=== PATIENT | female | born 1930 | race Caucasian/White ===

== ENCOUNTER → 2016-12-07 | Outpatient (CLI) | payer BC ==
[~2016-12-07] MED LIST: ACET-1256 PO; ALBUAER2 INH; AMIO200T4 PO; ASPI-435 PO; ASPI81TA82 PO; CHOL100010 PO; DOCU100C31 PO; DRGTP25 TD; FENT25DI10; FENT25DI2 TD; GABA-112 PO; LEVA45AE INH; LISI20TA3 PO; LISI40TA PO; LPT/40 PO; MELATAB2 PO; METO25TA3 PO; MULTCAP33 PO; ONDA4TAB46 PO; PANT40TA PO; POLY335019 PO; TPRSR50 PO; VNTHFA/IN INH; ZFRODT4HP PO; ZOLE5INJ INJ
--- NOTE | 2016-12-07 16:37 | MAMMOGRAPHY REPORT ---
BILATERAL DIGITAL SCREENING MAMMOGRAM WITH CAD: 12/07/2016 CLINICAL HISTORY: Routine screening. Patient has no complaints. TECHNIQUE: Bilateral CC and MLO views were obtained. Current study was also evaluated with a Comput er Aided Detection (CAD) system. COMPARISON: Comparison is made to exams dated: 11/08/2014 mammogram, 11/07/2013 mammogram, 11/06/20 12 mammogram, 11/03/2011 mammogram, 10/26/2010 mammogram, and 10/20/2009 mammogram - [facility]. BREAST COMPOSITION: There are scattered areas of fibroglandular density in both breasts. FINDINGS: A round metallic device projects over the right axillary tail and pectoralis muscle on th e MLO view. There are moderate vascular calcifications in the breasts. No suspicious mass, archite ctural distortion or cluster of microcalcifications is seen. IMPRESSION: ACR BI-RADS CATEGORY 1: NEGATIVE There is no mammographic evidence of malignancy. A 1 year screening mammogram is recommended. The p atient will receive written notification of the results. Approximately 10% of breast cancers are not detected with mammography. A negative mammographic repor t should not delay biopsy if a clinically suggestive mass is present. Loyda Stephenson M.D. ay/:12/07/2016 14:50:21 Attending Technologist: Radha DUBOSE)(M), [facility] Icicle Machine Operator: Radha Martin, [facility] letter sent: Normal 1/2 BI-RADS Code: ACR BI-RADS Category 1: Negative
== END | disposition home or self-care (01) ==
LOC: C.MAMM 13:06
PROVIDERS: ATTEND Internal Medicine Geriatric Medicine
DX: Z12.31 Encounter for screening mammogram for malignant neoplasm of breast (principal)

== ENCOUNTER → 2017-01-25 | Outpatient (CLI) | payer BC ==
[2017-01-25 12:03] LABS: BASO % 0.2 %; BASO ABS # 0.01 K/uL (0-0.2); COMPLETE YES; EOS % 2.3 %; HEMATOCRIT 44.4 % (37-47); IG% 0.2 %; LYMPH ABS # 1.44 K/uL (1.2-3.4); MEAN CELL VOLUME 96.7 fL (80-100); MEAN CORPUSCULAR HEMOGLOBIN 32.7 pg (25-34); MEAN CORPUSCULAR HGB CONC 33.8 g/dl (32-36); MEAN PLATELET VOLUME 10.8 fL (7.4-10.4); MONO % 9.9 %; NEUT % 65.4 %; PLATELET COUNT 187 K/uL (130-400); RED BLOOD COUNT 4.59 M/uL (4.2-5.4); WHITE BLOOD COUNT 6.55 K/uL (4.8-10.8)
[2017-01-25 12:16] LABS: ALT/SGPT 16 U/L (12-78); AST/SGOT 14 U/L (15-37); BLOOD UREA NITROGEN 20 mg/dl (7-18); BUN/CREATININE RATIO 22.3 (10-20); CALCIUM 8.7 mg/dl (8.5-10.1); CARBON DIOXIDE 30 mmol/L (21-32); CHLORIDE 108 mmol/L (98-107); CREATININE 0.89 mg/dl (0.60-1.20); GLUCOSE 74 mg/dl (70-99); POTASSIUM 4.1 mmol/L (3.5-5.1); SODIUM 144 mmol/L (136-145)
[2017-01-25 12:27] LABS: ALKALINE PHOSPHATASE 68 U/L (45-117); CHOLESTEROL 179 mg/dl (0-200); CHOLESTEROL/HDL RATIO 2.5; HDL CHOLESTEROL 73 mg/dl; LDL CHOLESTEROL CALCULATED 90 mg/dl; TRIGLYCERIDES 82 mg/dl (0-150); VERY LOW DENSITY LIPOPROT CALC 16 mg/dl
== END | disposition home or self-care (01) ==
LOC: C.LAB 11:21
PROVIDERS: ATTEND Internal Medicine Geriatric Medicine
DX: I10 Essential (primary) hypertension (principal); E78.5 Hyperlipidemia, unspecified; M19.90 Unspecified osteoarthritis, unspecified site; I48.0 Paroxysmal atrial fibrillation; E55.9 Vitamin D deficiency, unspecified; R10.9 Unspecified abdominal pain

== ENCOUNTER → 2017-03-27 | Outpatient (CLI) | payer BC ==
[~2017-03-27] MED LIST changes: +ANT25 PO; +MCRB100 PO
[2017-03-27 17:08] LABS: URINE APPEARANCE CLOUDY (CLEAR); URINE COLOR DK YELLOW; URINE EPITHELIAL CELL AUTO >30 /lpf (0-5); URINE NITRITE NEG (NEG); URINE SPECIFIC GRAVITY 1.026 (1.000-1.030); UROBILINOGEN NEG (NEG); ZZUR CULT IF INDIC CLEAN CATCH YES
[2017-03-27 17:22] LABS: MANUAL MICROSCOPIC REQUIRED? NO; REVIEW REQ? YES; URINE BILIRUBIN NEG (NEG)
== END | disposition home or self-care (01) ==
LOC: C.LAB 16:42
PROVIDERS: ATTEND Physician Assistant Medical
DX: R39.89 Other symptoms and signs involving the genitourinary system (principal); A49.8 Other bacterial infections of unspecified site

== ENCOUNTER 2017-04-16 18:51 | Emergency (ER) | payer BC ==
[~2017-04-16] VITALS: Ht 157.5 cm; Wt 55.0 kg
[~2017-04-16 18:51] MED LIST changes: -ANT25 PO; -ASPI-435 PO; -DRGTP25 TD; -FENT25DI10; -GABA-112 PO; -LEVA45AE INH; -LISI20TA3 PO; -MCRB100 PO; -METO25TA3 PO; -ONDA4TAB46 PO; -PANT40TA PO; -VNTHFA/IN INH
[2017-04-16 18:55] VITALS: TEMP 37; Ht 157.5 cm; Wt 55.0 kg
--- NOTE | 2017-04-16 19:11 | EMERGENCY ROOM VISIT NOTE ---
History Report prepared by Suryibomar: Kiana Lopez Under the Supervision of: Dr. Harinder Crooks M.D. First contact with patient: 18:59 Chief Complaint: CARDIAC ASSESSMENT Stated Complaint: CHEST PAIN,LETHARGIC,VOMITING History of Present Illness The patient is a 87 year old female who presents to the Emergency Room with complaints of persistent chest pain that started yesterday morning. She was brought to the ED via EMS and is accompanied by her daughter. The patient currently complains of a feeling of chest pain that resembles "indigestion". Her daughter reports the last time she experienced this type of discomfort, she had an CA. The patient admits her current discomfort does feel like her last CA which was approximately 9 years ago. She reports she was "just sitting in my chair" when her discomfort started. She also complains of some shortness of breath, nausea and lethargy. She has not vomited. The patients daughter states she has been falling more recently and has been increasingly weak. Her daughter also reports she recently finished an antibiotic course for UTI symptoms. Source of History: patient, family (daughter) Onset: 1 day DRY F[employer] Position: chest Timing: other (persistent) Associated Symptoms: + SOB, + fatigue, + nausea, + weakness Review of Systems All systems have been listed, reviewed, and are negative other than those previously mentioned. Please see Additional Medical History Sheet. 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 Social History Smoking Status: Former Smoker Alcohol Use: none Drug Use: none Marital Status: single, Housing Status: lives with family Occupation Status: retired Current/Historical Medications Scheduled Amiodarone Hcl (Cordarone), 200 MG PO DAILY Aspirin (Aspirin), 81 MG PO DAILY Atorvastatin (Lipitor), 40 MG PO HS Cholecalciferol (Vitamin D), 2,000 INTER.UNIT PO DAILY Docusate Sodium (Docusate Sodium), 100 MG PO DAILY Fentanyl (Duragesic), 25 MCG TD [id number] Gabapentin (Neurontin), 100 MG PO TID Lisinopril (Zestril), 40 MG PO DAILY Metoprolol Succinate (Metoprolol Succinate ER), 50 MG PO DAILY Pantoprazole (Protonix), 40 MG PO DAILY Polyethylene Glycol 3350 (Miralax), 17 GM PO Q2D Zoledronic Acid (Reclast), 5 MG INJ YEARLY Scheduled PRN Acetaminophen (Tylenol), 1,000 MG PO Q6H PRN for Pain Albuterol (Ventolin), 2 PUFFS INH Q4-6HRS PRN for Shortness of Breath Levalbuterol Tartrate (Levalbuterol Tartrate Hfa), 2 PUFFS INH Q4H PRN for SOB/ Wheezing Ondansetron (Ondansetron Odt), 4 MG PO Q6H PRN for Nausea Allergies Coded Allergies: Adenosine (Verified Allergy, Unknown, "pt not sure had it in er years ago ", 04/22/16) Physical Exam Vital Signs Date Time Temp Pulse Resp B/P Pulse Ox O2 Delivery O2 Flow Rate FiO2 04/16/17 22:22 59 16 146/70 97 04/16/17 21:25 52 04/16/17 20:48 58 16 143/57 98 Room Air 04/16/17 19:50 98 Room Air 04/16/17 19:16 98 Room Air 04/16/17 18:55 37.0 57 18 162/57 98 Room Air Physical Exam GENERAL: Patient awake, alert, oriented x 3. Patient follows commands. Patient does not appear toxic. Patient is adequately hydrated and well- nourished. SKIN: No erythema, pallor, cyanosis or rash HEENT: Normal head, pupils equal, reactive to light and accommodation. Ears normal. Oral cavity and posterior pharynx appear normal. Neck: Without adenopathy, no neck vein distention. LUNGS: Clear to auscultation. No wheezes, no rales, no rhonchi. HEART: No murmurs. No gallops. No rubs. Pacemaker in right upper chest. ABDOMEN: No masses, no rebound, no hepatomegaly or splenomegaly. EXTREMITIES: Mottled appearance to both extremities. No signs of trauma. +1 pretibial edema. No calf or thigh tenderness. NEUROLOGIC: Cranial nerves II-XII within normal limits. No gross motor sensory function deficits. Medical Decision & Procedures ER Provider Diagnostic Interpretation: This X-Ray was reviewed and interpreted by myself and the radiologist. CHEST ONE VIEW PORTABLE IMPRESSION: No acute process Electronically signed by: Grant Fabian M.D. 04/16/2017 8:14 PM Laboratory Results 04/16/17 19:25 04/16/17 19:25 Test 04/16/17 19:25 Red Blood Count 4.74 M/uL (4.2-5.4) Mean Corpuscular Volume 97.0 fL (80-100) Mean Corpuscular Hemoglobin 32.1 pg (25-34) Mean Corpuscular Hemoglobin Concent 33.0 g/dl (32-36) RDW Standard Deviation 49.4 fL (36.4-46.3) RDW Coefficient of Variation 13.9 % (11.5-14.5) Mean Platelet Volume 10.6 fL (7.4-10.4) Anion Gap 6.0 mmol/L (3-11) Est Creatinine Clear Calc Drug Dose 41.7 ml/min Estimated GFR () 80.3 Estimated GFR (Non- 69.3 BUN/Creatinine Ratio 28.9 (10-20) Calcium Level 8.8 mg/dl (8.5-10.1) Total Bilirubin 0.4 mg/dl (0.2-1) Aspartate Amino Transf (AST/SGOT) U/L (15-37) Alanine Aminotransferase (ALT/SGPT) 22 U/L (12-78) Alkaline Phosphatase 71 U/L (45-117) Troponin I < 0.015 ng/ml (0-0.045) Total Protein 6.5 gm/dl (6.4-8.2) Albumin 3.3 gm/dl (3.4-5.0) Globulin 3.2 gm/dl (2.5-4.0) Albumin/Globulin Ratio 1.0 (0.9-2) Thyroid Stimulating Hormone (TSH) 2.380 uIu/ml (0.300-4.500) Laboratory results as stated above per my review. ECG Indication: chest pain Rate (beats per minute): 56 Rhythm: sinus bradycardia Findings: no acute ischemic change, no ectopy Change: no significant change (no change from April 2016) ED Course 1900: Past medical records reviewed. The patient was evaluated in room C7. A complete history and physical examination was performed. 2105: I reevaluated the patient. She is feeling about the same. I am awaiting her Troponin to come back. 2204: Upon reevaluation, the patient appeared to have improvement of her symptoms. I discussed today's findings with the patient. She verbalized agreement of the treatment plan. She was discharged home. Medical Decision Nurses notes reviewed. Medical history sheet reviewed. Differential diagnosis includes but is not limited to: Cardiac ischemia, aortic dissection, pulmonary embolism, pneumonia, pneumothorax, musculoskeletal, infections, pericarditis, myocarditis, esophageal rupture, gastrointestinal, as well as others were entertained. Multiple labs come imaging and EKG were obtained. Please see above. The patient has no evidence of an acute myocardial event. I do not think she had a stroke. The patient is not anemic. I believe the patient is safe to return home but will require follow-up by family physician within the next several days. Impression Primary Impression: Weakness generalized Scribe Attestation The scribe's documentation has been prepared under my direction and personally reviewed by me in its entirety. I confirm that the note above accurately reflects all work, treatment, procedures, and medical decision making performed by me. Departure Information Dispostion Home / Self-Care Referrals Alexei Redman M.D. (PCP) Patient Instructions My [facility] Additional Instructions Continue all of your current medications as prescribed. Follow-up with Dr. Redman within the next 4-5 days. Return here sooner if your symptoms worsen.
[2017-04-16 19:50] VITALS: O2SAT 98
[2017-04-16 19:58] LABS: MEAN CORPUSCULAR HEMOGLOBIN 32.1 pg (25-34); MEAN PLATELET VOLUME 10.6 fL (7.4-10.4); PLATELET COUNT 182 K/uL (130-400); RED BLOOD COUNT 4.74 M/uL (4.2-5.4); WHITE BLOOD COUNT 5.99 K/uL (4.8-10.8)
[2017-04-16] MEDS ORDERED: GABA-112 PO (20:02)
[2017-04-16] MEDS ORDERED: PANT40TA PO (20:03)
[2017-04-16] MEDS ORDERED: LEVA45AE INH (20:04)
--- NOTE | 2017-04-16 20:15 | DIAGNOSTIC IMAGING REPORT ---
CHEST ONE VIEW PORTABLE CLINICAL HISTORY: chest pain dyspnea COMPARISON STUDY: 04/30/2016 FINDINGS: Mild stable cardiomegaly. Diaphragms are smooth. No focal infiltrates. IMPRESSION: No acute process Electronically signed by: Grant Fabian M.D. 04/16/2017 8:14 PM Dictated Date/Time: 04/16/2017 8:13 PM
[2017-04-16 20:18] LABS: ALKALINE PHOSPHATASE 71 U/L (45-117); ALT/SGPT 22 U/L (12-78); BLOOD UREA NITROGEN 23 mg/dl (7-18); BUN/CREATININE RATIO 28.9 (10-20); CALCIUM 8.8 mg/dl (8.5-10.1); CARBON DIOXIDE 30 mmol/L (21-32); CHLORIDE 109 mmol/L (98-107); CREATININE 0.78 mg/dl (0.60-1.20); GLUCOSE 95 mg/dl (70-99); SODIUM 145 mmol/L (136-145)
[2017-04-16 22:22] VITALS: BP 146/70; PULSE 59; O2SAT 97
[2017-06-15] MEDS ORDERED: ONDA4TAB46 PO (10:59)
[2017-06-15] MEDS ORDERED: LISI20TA3 PO (11:00)
[2017-06-15] MEDS ORDERED: METO25TA3 PO (11:00)
[2017-09-06] MEDS ORDERED: ANT25 PO (05:31)
[2017-09-06] MEDS ORDERED: MCRB100 PO (05:31)
[2017-09-06] MEDS ORDERED: DRGTP25 TD (05:31)
== END 2017-04-16 22:22 | disposition home or self-care (01) ==
LOC: C.EDB 18:53 → C.EDC 22:22
DX: R53.1 Weakness (principal); J45.909 Unspecified asthma, uncomplicated; I48.91 Unspecified atrial fibrillation; K21.9 Gastro-esophageal reflux disease without esophagitis; E78.5 Hyperlipidemia, unspecified; I10 Essential (primary) hypertension; I25.10 Atherosclerotic heart disease of native coronary artery without angina pectoris; Z86.73 Personal history of transient ischemic attack (TIA), and cerebral infarction without residual deficits; I73.9 Peripheral vascular disease, unspecified; Z87.891 Personal history of nicotine dependence; Z79.82 Long term (current) use of aspirin; Z79.899 Other long term (current) drug therapy

== ENCOUNTER → 2017-04-29 | Outpatient (CLI) | payer BC ==
[~2017-04-29] MED LIST changes: +ANT25 PO; +ASPI-435 PO; +DRGTP25 TD; +FENT25DI10; +GABA-112 PO; +LEVA45AE INH; +LISI20TA3 PO; +MCRB100 PO; -MELATAB2 PO; +METO25TA3 PO; -MULTCAP33 PO; +ONDA4TAB46 PO; +PANT40TA PO; +VNTHFA/IN INH
--- NOTE | 2017-04-29 09:26 | DIAGNOSTIC IMAGING REPORT ---
Abdominal aortic ultrasound CLINICAL HISTORY: Abdominal aortic aneurysm. Follow-up. COMPARISON STUDY: Abdomen and pelvis CT 04/09/2016. FINDINGS: Proximal abdominal aorta measures 2.0 cm. Mid abdominal aorta measures 3.7 x 3.6 cm. Distal abdominal aorta measures 1.6 cm. Iliac vessels measure proximal A 1 cm in diameter. IMPRESSION: No change in the mid abdominal aortic aneurysm measuring 3.7 x 3.6 cm. Electronically signed by: Darren Livingston M.D. 04/29/2017 9:24 AM Dictated Date/Time: 04/29/2017 9:13 AM
== END | disposition home or self-care (01) ==
LOC: C.ULTR 08:32
PROVIDERS: ATTEND Internal Medicine Geriatric Medicine
DX: I71.4 Abdominal aortic aneurysm, without rupture (principal)

== ENCOUNTER → 2017-05-04 | Outpatient (CLI) | payer BC ==
[2017-05-04 16:16] LABS: BLOOD UREA NITROGEN 21 mg/dl (7-18); CREATININE 0.93 mg/dl (0.60-1.20)
== END ==
LOC: C.LAB 14:45
PROVIDERS: ATTEND Internal Medicine Geriatric Medicine
DX: R10.9 Unspecified abdominal pain (principal)

== ENCOUNTER 2017-05-08 17:15 | Inpatient (IN) | payer BC, OTHER ==
[~2017-05-08] VITALS: Ht 157.5 cm; Wt 62.2 kg
[~2017-05-08 17:15] MED LIST changes: -ANT25 PO; -ASPI-435 PO; -DRGTP25 TD; -FENT25DI10; -LISI20TA3 PO; -MCRB100 PO; -METO25TA3 PO; -ONDA4TAB46 PO; -VNTHFA/IN INH
[2017-05-08 17:45] LABS: BASO % 0.3 %; BASO ABS # 0.02 K/uL (0-0.2); COMPLETE YES; EOS % 3.4 %; HEMATOCRIT 48.1 % (37-47); LYMPH % 31.2 %; LYMPH ABS # 1.91 K/uL (1.2-3.4); MEAN CELL VOLUME 96.4 fL (80-100); MEAN CORPUSCULAR HEMOGLOBIN 31.5 pg (25-34); MEAN CORPUSCULAR HGB CONC 32.6 g/dl (32-36); MONO % 8.2 %; NEUT % 56.9 %; PLATELET COUNT 198 K/uL (130-400); RED BLOOD COUNT 4.99 M/uL (4.2-5.4); WHITE BLOOD COUNT 6.13 K/uL (4.8-10.8)
[2017-05-08 18:00] LABS: PARTIAL THROMBOPLASTIN RATIO 0.9; PROTHROMBIN TIME (PATIENT) 10.6 SECONDS (9.0-12.0)
[2017-05-08] MEDS ORDERED: ONDANSETRON INJ 2 MG/ML 2 ML VIAL IV STA (18:03)
[2017-05-08 18:14] LABS: ALT/SGPT 20 U/L (12-78); AST/SGOT 22 U/L (15-37); BLOOD UREA NITROGEN 17 mg/dl (7-18); CALCIUM 8.8 mg/dl (8.5-10.1); CARBON DIOXIDE 29 mmol/L (21-32); CHLORIDE 108 mmol/L (98-107); CREATININE 0.82 mg/dl (0.60-1.20); GLUCOSE 91 mg/dl (70-99); POTASSIUM 4.2 mmol/L (3.5-5.1); SODIUM 145 mmol/L (136-145)
[2017-05-08] MEDS ORDERED: HYDROmorphone INJ 0.5 MG/0.5 ML SYR IV PRN (18:15)
--- NOTE | 2017-05-08 18:15 | DIAGNOSTIC IMAGING REPORT ---
CHEST ONE VIEW PORTABLE CLINICAL HISTORY: severe hypertension COMPARISON STUDY: No previous studies for comparison. FINDINGS: The heart remains mildly enlarged. There is no failure. There is no focal pulmonary consolidation. There is stable blunting left lateral costophrenic angle. There is a right subclavian single lead pacemaker present. The position of electrode remains unchanged. Arthritic changes are present within the shoulders.[ IMPRESSION: Stable mild cardiomegaly and blunting of the left lateral costophrenic angle. No evidence of failure. No evidence of focal pulmonary consolidation Electronically signed by: Lorne Go M.D. 05/08/2017 6:14 PM Dictated Date/Time: 05/08/2017 6:12 PM
[2017-05-08 18:19] LABS: ALKALINE PHOSPHATASE 75 U/L (45-117)
[2017-05-08 19:24] LABS: URINE APPEARANCE CLEAR (CLEAR); URINE BILIRUBIN NEG (NEG); URINE COLOR YELLOW; URINE NITRITE NEG (NEG); URINE PH 6.5 (4.5-7.5); UROBILINOGEN NEG (NEG)
[2017-05-08 19:26] LABS: MANUAL MICROSCOPIC REQUIRED? NO; REVIEW REQ? NO
[2017-05-08] MEDS ORDERED: OPTIRAY 320 IV PRN (19:30)
[2017-05-08] MEDS ORDERED: DRGTP25 TD (19:31)
[2017-05-08] MEDS ORDERED: ASPI-435 PO (19:31)
[2017-05-08] MEDS ORDERED: CHOL100010 PO (19:31)
[2017-05-08] MEDS ORDERED: VNTHFA/IN INH (19:31)
[2017-05-08] MEDS ORDERED: FENT25DI10 (19:31)
--- NOTE | 2017-05-08 21:04 | DIAGNOSTIC IMAGING REPORT ---
CT HEAD WITHOUT CONTRAST (CT) CLINICAL HISTORY: severe hypertension FRONTAL HEADACHE COMPARISON STUDY: No previous studies for comparison. TECHNIQUE: Axial CT of the brain is performed from the vertex to the skull base. IV contrast was not administered for this examination. CT DOSE: FINDINGS: No intra or extra-axial mass lesions are visualized. There is no CT evidence of acute cortical infarction. There is no evidence of midline shift. There is no acute hemorrhage. No calvarial fractures are visualized. There are minimal white matter hypodensities likely on a small vessel basis. There is a lacunar infarct in the right thalamus. There is no evidence of pathologic ventricular dilatation. There is no evidence of acute sinusitis IMPRESSION: Subacute or chronic right thalamic lacunar infarct. No acute intracranial findings. Electronically signed by: Lorne Go M.D. 05/08/2017 9:03 PM Dictated Date/Time: 05/08/2017 9:02 PM
--- NOTE | 2017-05-08 21:17 | DIAGNOSTIC IMAGING REPORT ---
CT ABD/PELVIS IV AND ORAL CONT CLINICAL HISTORY: Right lower quadrant abdominal pain. Nausea. Hypertension. COMPARISON STUDY: 04/09/2016 TECHNIQUE: Following the IV administration of 91 mL of Optiray-320, CT scan of the abdomen and pelvis was performed from the lung bases to the proximal femurs. Images are reviewed in the axial, sagittal, and coronal planes. IV contrast was administered without complication. CT DOSE: 894.44 mGy.cm FINDINGS: Lower chest: There are small bilateral pleural effusions left greater than right. The heart is mildly enlarged. There are left basilar atelectatic changes. Liver: There is intra and extrahepatic biliary ductal dilatation. No focal hepatic masses are visualized. Gallbladder: The gallbladder remains difficult to separate from the adjacent dilated ducts. No gallstones are visualized. Spleen: Normal in size and attenuation. Pancreas: There is mild pancreatic ductal dilatation and pancreatic atrophy. Adrenal glands: Unremarkable. Kidneys: There is symmetric renal cortical enhancement. The kidneys are normal in size without hydronephrosis. Bowel: There are no transition zones indicate bowel obstruction. There is mild fecal retention. There is no acute diverticulitis. There is no evidence of acute appendicitis. Peritoneum: There is no intraperitoneal free air or abdominal ascites. Vasculature: There is an infrarenal abdominal aortic aneurysm measuring 3.9 cm in maximal diameter. There is also dilatation of the suprarenal abdominal aorta which measures 34 mm in maximal diameter. There is an indwelling IVC filter. Several of the struts project beyond the IVC lumen. Adenopathy: None. Pelvic viscera: The uterus appears surgically absent. Skeletal structures: There are postsurgical changes of prior lumbar laminectomies. IMPRESSION: 1. No evidence of bowel obstruction. No evidence of free air 2. No evidence of acute appendicitis. No evidence of acute diverticulitis 3. Partially thrombosed infrarenal abdominal aortic aneurysm measuring 3.9 cm in maximal diameter 4. Small bilateral pleural effusions 5. Moderate intra and extrahepatic biliary ductal dilatation. The common bile duct measures 12 mm. There is also pancreatic ductal dilatation and pancreatic atrophy. The etiology of this ductal dilatation is not known. The biliary ductal dilatation has been present on studies dating back to November 2011. The pancreatic ductal dilatation is progressive. Electronically signed by: Lorne Go M.D. 05/08/2017 9:16 PM Dictated Date/Time: 05/08/2017 9:04 PM
[2017-05-08] MEDS ORDERED: ASPIRIN 81 MG CHEW PO STA (21:55)
[2017-05-08] MEDS ORDERED: HydrALAZINE HCL 20 MG/ML VIAL IV. STA (23:14)
[2017-05-08] MEDS ORDERED: MAGNESIUM HYDROXIDE SUSP 30 ML UDC PO PRN (23:30)
[2017-05-08] MEDS ORDERED: ALBUTEROL HFA 8 GM INHALER INH PRN (23:30)
[2017-05-08] MEDS ORDERED: ONDANSETRON INJ 2 MG/ML 2 ML VIAL IV PRN (23:30)
--- NOTE | 2017-05-08 23:32 | History and Physical ---
History & Physical Date & Time of Service: May 08, 2017 at 23:29 Chief Complaint: High Bp,Not Feeling Well Primary Care Physician: Alexei Redman M.D. History of Present Illness Source: patient 87-year-old female with a past medical history of hypertension, atrial fibrillation, coronary artery disease , abdominal aortic aneurysm, hyperlipidemia, peripheral vascular disease, spinal stenosis status post laminectomy, GERD, carotid artery occlusion presented to the ER with complaints of confusion in the setting of high blood pressure. Per the patient, " she felt like she was in outer space" and when her daughter checked her blood pressure, it was 218/60. She stated that she had a headache with nausea and blurring of vision which is now resolved. Denies any new onset weakness, numbness or tingling, slurring of speech or chest pain or difficult breathing. She has a history of spinal stenosis status post laminectomy done several years ago and complains of low back pain and lower extremity weakness especially in her right lower extremity. She ambulates in an electric chair and has a fentanyl patch for pain management. She also complains of constant, chronic right lower quadrant abdominal pain and nausea. She was scheduled for a CT scan tomorrow. 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 Social History Smoking Status: Never Smoker Drug Use: none Marital Status: single, Housing status: lives with family Occupational Status: retired Immunizations History of Influenza Vaccine: Unknown History of Tetanus Vaccine?: Unknown History of Pneumococcal: Unknown History of Hepatitis B Vaccine: Unknown Multi-Drug Resistant Organisms History of MDRO: No Allergies Coded Allergies: Adenosine (Verified Allergy, Unknown, "pt not sure had it in er years ago ", 04/22/16) Home Medications Scheduled Amiodarone Hcl (Cordarone), 200 MG PO DAILY Aspirin (Aspirin 81), 81 MG PO DAILY Atorvastatin (Lipitor), 40 MG PO HS Cholecalciferol (Vitamin D), 2,000 UNITS PO DAILY Docusate Sodium (Docusate Sodium), 100 MG PO DAILY Fentanyl (Fentanyl), 25 MCG TD [id number] Gabapentin (Neurontin), 100 MG PO TID Lisinopril (Zestril), 40 MG PO DAILY Metoprolol Succinate (Metoprolol Succinate ER), 50 MG PO DAILY Polyethylene Glycol 3350 (Miralax), 17 GM PO Q2D Zoledronic Acid (Reclast), 5 MG INJ YEARLY Scheduled PRN Acetaminophen (Tylenol), 1,000 MG PO Q6H PRN for Pain Albuterol Hfa (Ventolin Hfa), 2 PUFFS INH Q6H PRN for SOB/Wheezing Ondansetron (Ondansetron Odt), 4 MG PO Q6H PRN for Nausea Review of Systems Constitutional: No fever, No chills Eyes: + worsening of vision (blurriness of vision now resolved) Respiratory: No cough, No sputum, No shortness of breath Cardiovascular: No chest pain, No orthopnea, No edema Abdomen: + pain (RLQ which is chronic), + nausea, + vomiting Musculoskeletal: No joint pain Genitourinary - Female: No dysuria, No urinary frequency Neurologic: No memory loss, No paralysis, No weakness (LLE weakness which is longstanding) Psychiatric: No depression symptoms Integumentary: No rash Physical Exam Vital Signs Date Time Temp Pulse Resp B/P (MAP) Pulse Ox O2 Delivery O2 Flow Rate FiO2 05/08/17 23:04 49 190/64 05/08/17 22:19 54 20 205/63 95 Room Air 05/08/17 22:04 48 05/08/17 21:27 48 20 167/60 96 Room Air 05/08/17 20:23 52 20 190/62 97 Room Air 05/08/17 19:08 48 16 184/74 95 Room Air 05/08/17 19:08 95 Room Air 05/08/17 18:29 59 05/08/17 17:18 36.7 56 20 218/67 95 Room Air General Appearance: WD/WN, no apparent distress Head: normocephalic Eyes: normal inspection ENT: normal ENT inspection, hearing grossly normal Neck: supple Respiratory/Chest: chest non-tender, lungs clear, normal breath sounds, no respiratory distress, no accessory muscle use Cardiovascular: + bradycardia Abdomen/GI: normal bowel sounds, + tenderness (RLQ) Extremities/Musculoskelatal: normal inspection, no pedal edema Neurologic/Psych: online marketer II-XII nml as tested, alert, normal mood/affect, oriented x 3, + motor weakness (RLE 1/5) Skin: normal color Diagnostics Laboratory Results Results Past 24 Hours Test 05/08/17 17:30 05/08/17 18:30 Range/Units White Blood Count 6.13 4.8-10.8 K/uL Red Blood Count 4.99 4.2-5.4 M/uL Hemoglobin 15.7 12.0-16.0 g/dL Hematocrit 48.1 37-47 % Mean Corpuscular Volume 96.4 80-100 fL Mean Corpuscular Hemoglobin 31.5 25-34 pg Mean Corpuscular Hemoglobin Concent 32.6 32-36 g/dl Platelet Count 198 130-400 K/uL Mean Platelet Volume 10.0 7.4-10.4 fL Neutrophils (%) (Auto) 56.9 % Lymphocytes (%) (Auto) 31.2 % Monocytes (%) (Auto) 8.2 % Eosinophils (%) (Auto) 3.4 % Basophils (%) (Auto) 0.3 % Neutrophils # (Auto) 3.49 1.4-6.5 K/uL Lymphocytes # (Auto) 1.91 1.2-3.4 K/uL Monocytes # (Auto) 0.50 0.11-0.59 K/uL Eosinophils # (Auto) 0.21 0-0.5 K/uL Basophils # (Auto) 0.02 0-0.2 K/uL RDW Standard Deviation 49.0 36.4-46.3 fL RDW Coefficient of Variation 13.8 11.5-14.5 % Immature Granulocyte % (Auto) 0.0 % Immature Granulocyte # (Auto) 0.00 0.00-0.02 K/uL Prothrombin Time 10.6 9.0-12.0 SECONDS Prothromb Time International Ratio 1.0 0.9-1.1 Activated Partial Thromboplast Time 23.3 21.0-31.0 SECONDS Partial Thromboplastin Ratio 0.9 Sodium Level 145 136-145 mmol/L Potassium Level 4.2 3.5-5.1 mmol/L Chloride Level 108 98-107 mmol/L Carbon Dioxide Level 29 21-32 mmol/L Anion Gap 8.0 3-11 mmol/L Blood Urea Nitrogen 17 7-18 mg/dl Creatinine 0.82 0.60-1.20 mg/dl Estimated GFR () 75.6 Estimated GFR (Non- 65.3 BUN/Creatinine Ratio 21.0 10-20 Random Glucose 91 70-99 mg/dl Calcium Level 8.8 8.5-10.1 mg/dl Total Bilirubin 0.4 0.2-1 mg/dl Direct Bilirubin 0-0.2 mg/dl Aspartate Amino Transf (AST/SGOT) 22 15-37 U/L Alanine Aminotransferase (ALT/SGPT) 20 12-78 U/L Alkaline Phosphatase 75 45-117 U/L Total Creatine Kinase 85 26-192 U/L Creatine Kinase MB 1.7 0.5-3.6 ng/ml Creatine Kinase MB Ratio 2.0 0-3.0 Troponin I < 0.015 0-0.045 ng/ml Total Protein 6.9 6.4-8.2 gm/dl Albumin 3.4 3.4-5.0 gm/dl Lipase 115 73-393 U/L Thyroid Stimulating Hormone (TSH) 2.950 0.300-4.500 uIu/ml Chemistry Specimen Hemolysis Urine Color YELLOW Urine Appearance CLEAR CLEAR Urine pH 6.5 4.5-7.5 Urine Specific Haslet 1.010 1.000-1.030 Urine Protein NEG NEG Urine Glucose (UA) NEG NEG Urine Ketones NEG NEG Urine Occult Blood NEG NEG Urine Nitrite NEG NEG Urine Bilirubin NEG NEG Urine Urobilinogen NEG NEG Urine Leukocyte Esterase SMALL NEG Urine WBC (Auto) 1-5 0-5 /hpf Urine RBC (Auto) 5-10 0-4 /hpf Urine Hyaline Casts (Auto) 1-5 0-5 /lpf Urine Epithelial Cells (Auto) 10-20 0-5 /lpf Urine Bacteria (Auto) NEG NEG Diagnostic Radiology [~ rep ct add3]] CT HEAD WITHOUT CONTRAST (CT) CLINICAL HISTORY: severe hypertension FRONTAL HEADACHE COMPARISON STUDY: No previous studies for comparison. TECHNIQUE: Axial CT of the brain is performed from the vertex to the skull base. IV contrast was not administered for this examination. CT DOSE: FINDINGS: No intra or extra-axial mass lesions are visualized. There is no CT evidence of acute cortical infarction. There is no evidence of midline shift. There is no acute hemorrhage. No calvarial fractures are visualized. There are minimal white matter hypodensities likely on a small vessel basis. There is a lacunar infarct in the right thalamus. There is no evidence of pathologic ventricular dilatation. There is no evidence of acute sinusitis IMPRESSION: Subacute or chronic right thalamic lacunar infarct. No acute intracranial findings. Electronically signed by: Lorne Go M.D. 05/08/2017 9:03 PM CHEST ONE VIEW PORTABLE CLINICAL HISTORY: severe hypertension COMPARISON STUDY: No previous studies for comparison. FINDINGS: The heart remains mildly enlarged. There is no failure. There is no focal pulmonary consolidation. There is stable blunting left lateral costophrenic angle. There is a right subclavian single lead pacemaker present. The position of electrode remains unchanged. Arthritic changes are present within the shoulders.[ IMPRESSION: Stable mild cardiomegaly and blunting of the left lateral costophrenic angle. No evidence of failure. No evidence of focal pulmonary consolidation Electronically signed by: Lorne Go M.D. 05/08/2017 6:[address] ABD/PELVIS IV AND ORAL CONT CLINICAL HISTORY: Right lower quadrant abdominal pain. Nausea. Hypertension. COMPARISON STUDY: 04/09/2016 TECHNIQUE: Following the IV administration of 91 mL of Optiray-320, CT scan of the abdomen and pelvis was performed from the lung bases to the proximal femurs. Images are reviewed in the axial, sagittal, and coronal planes. IV contrast was administered without complication. CT DOSE: 894.44 mGy.cm FINDINGS: Lower chest: There are small bilateral pleural effusions left greater than right. The heart is mildly enlarged. There are left basilar atelectatic changes. Liver: There is intra and extrahepatic biliary ductal dilatation. No focal hepatic masses are visualized. Gallbladder: The gallbladder remains difficult to separate from the adjacent dilated ducts. No gallstones are visualized. Spleen: Normal in size and attenuation. Pancreas: There is mild pancreatic ductal dilatation and pancreatic atrophy. Adrenal glands: Unremarkable. Kidneys: There is symmetric renal cortical enhancement. The kidneys are normal in size without hydronephrosis. Bowel: There are no transition zones indicate bowel obstruction. There is mild fecal retention. There is no acute diverticulitis. There is no evidence of acute appendicitis. Peritoneum: There is no intraperitoneal free air or abdominal ascites. Vasculature: There is an infrarenal abdominal aortic aneurysm measuring 3.9 cm in maximal diameter. There is also dilatation of the suprarenal abdominal aorta which measures 34 mm in maximal diameter. There is an indwelling IVC filter. Several of the struts project beyond the IVC lumen. Adenopathy: None. Pelvic viscera: The uterus appears surgically absent. Skeletal structures: There are postsurgical changes of prior lumbar laminectomies. IMPRESSION: 1. No evidence of bowel obstruction. No evidence of free air 2. No evidence of acute appendicitis. No evidence of acute diverticulitis 3. Partially thrombosed infrarenal abdominal aortic aneurysm measuring 3.9 cm in maximal diameter 4. Small bilateral pleural effusions 5. Moderate intra and extrahepatic biliary ductal dilatation. The common bile duct measures 12 mm. There is also pancreatic ductal dilatation and pancreatic atrophy. The etiology of this ductal dilatation is not known. The biliary ductal dilatation has been present on studies dating back to November 2011. The pancreatic ductal dilatation is progressive. Electronically signed by: Lorne Go M.D. 05/08/2017 9:16 PM Dictated Date/Time: 05/08/2017 9:04 PM Impression Assessment and Plan 87-year-old female with a past medical history of hypertension, atrial fibrillation, coronary artery disease , abdominal aortic aneurysm, hyperlipidemia, peripheral vascular disease, spinal stenosis status post laminectomy, GERD, carotid artery occlusion presented to the ER with complaints of confusion in the setting of high blood pressure. Blood pressure recorded at home was 218/60 and on arrival was 218 /67. Uncontrolled hypertension: Head CT: Subacute or chronic right thalamic lacunar infarct. No acute intracranial findings. - Received full dose aspirin in the ER - Monitor blood pressure - Hydralazine 10 mg when necessary - Continue metoprolol 50 mg daily and lisinopril 40 mg daily Subacute stroke: Subacute or chronic right thalamic lacunar infarct visualized on CT - Continue aspirin, statin - Neurology consult Bradycardia, history of atrial fibrillation : Status post pacemaker( per patient, is not working) - Continue amiodarone - Bradycardia appears to be chronic, heart rate ranges in the 50s Right lower quadrant abdominal pain : Chronic CT abdomen and pelvis:. Moderate intra and extrahepatic biliary ductal dilatation. The common bile duct measures 12 mm. There is also pancreatic ductal dilatation and pancreatic atrophy. The etiology of this ductal dilatation is not known. The biliary ductal dilatation has been present on studies dating back to November 2011. The pancreatic ductal dilatation is progressive. - Liver enzymes including lipase is unremarkable Hyperlipidemia : -Continue Lipitor Spinal stenosis status post laminectomy - Continue gabapentin and fentanyl patch Full code DVT prophylaxis: Heparin subcutaneous Resident Physician Supervision Note: Pt seen/examined independently. I discussed the case with the resident and agree with the findings and plan as documented in the note. Any exceptions or clarifications are listed here: 87 y/o F Hx HTN, spinal stenosis, AF, bradycardia and nonfunctioning pacer Pt has exhibited intermittent confusion per family although she is AAO x 3 on admission Her BP is poorly controlled with a systolic BP occasionally over 200 There a subacute CVA seen on CT OE AAO x 3 S1,2 R CTAB NT, ND, BS+ RLE weakness on neuro exam is chronic - no additional deficits P: Increase ASA to 325, cont Statin BP control as AMS may be due to encephalopathy rather than a CVA Bradycardia is borderline and unlikely contributing Documented By: Sam Renteria Level of Care Telemetry Resuscitation Status FULL RESUSCITATION VTE Prophylaxis VTE Risk Assessment Done? Y/N: Yes Risk Level: Moderate Given or contraindicated: Unfractionated heparin SQ Resident Tracking Resident Involvement: Resident Care Provided Care Provided: Adult Hospital Medicine
[2017-05-09] VITALS (12 sets, daily range): BP systolic 120–192; BP diastolic 56–69; PULSE 48–63; TEMP 36.3–36.9; O2SAT 94–99; Ht 157.5 cm; Wt 62.2 kg
[2017-05-09] MEDS: CHECK FENTANYL PATCH PLACEMENT SCH ×3 (00:15→16:08)
[2017-05-09] MEDS: ACETAMINOPHEN 325 MG TAB PO PRN (00:21)
--- NOTE | 2017-05-09 00:28 | EMERGENCY ROOM VISIT NOTE ---
History Report prepared by Felisa: Chris Amezquita Under the Supervision of: Dr. Ayush Lombardo M.D. First contact with patient: 17:29 Chief Complaint: HYPERTENSION Stated Complaint: HIGH BP,NOT FEELING WELL History of Present Illness The patient is a 87 year old female who presents to the Emergency Room with complaints of a constant weakness starting last night as well as elevations of her blood pressure. She reports her discomfort as a 6/10 in severity. The patient reports that her daughter has been taking her blood pressure, which usually varies. Her daughter states that the patient was red earlier today, so she took her blood pressure twice, which showed a result of 218/60 and 220/62 today. She reports that she has been having intermittent headaches and currently has a mild one but denies taking any medication for the pain. The patient states that she has been experiencing nausea for the past month, which she has been taking oral medication for. She also reports that she has been having constant abdominal pain that she has been having for months and has an abdominal CT scan planned for tomorrow. Her daughter states that she has not been coherent lately. The patient admits that she has been having pain in her back and weakness in her legs due to her back surgery that occurred a long time ago. She reports that she can no longer ambulate without a chair and had a morphine patch for it. The patient's daughter states that she has a history of a urinary tract infection, clogged carotid artery, atrial fibrillation, spinal stenosis, high cholesterol, and hypertension. She also reports the patient has a pacemaker on her right chest that does not work anymore and an IVC filter. The patient denies any medicine allergies, a history of diabetes, LOC, fevers, chills, diaphoresis, visual changes, neck pain, chest pain, breathing difficulties, vomiting, back pain, melena, hematochezia, urinary symptoms, numbness, lymphadenopathy, rash, or other complaints. Source of History: patient, family (daughter) Onset: last night Position: other (global) Symptom Intensity: 6/10 Timing: constant Associated Symptoms: + headache, + nausea, + abdominal pain, + back pain Review of Systems See HPI for pertinent positives and negatives. A total of ten systems were reviewed and were otherwise negative. 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 Social History Smoking Status: Never Smoker Alcohol Use: none Drug Use: none Marital Status: single, Housing Status: lives with family Occupation Status: retired Current/Historical Medications Scheduled Amiodarone Hcl (Cordarone), 200 MG PO DAILY Aspirin (Aspirin 81), 81 MG PO DAILY Atorvastatin (Lipitor), 40 MG PO HS Cholecalciferol (Vitamin D), 2,000 UNITS PO DAILY Docusate Sodium (Docusate Sodium), 100 MG PO DAILY Fentanyl (Fentanyl), 25 MCG TD [id number] Gabapentin (Neurontin), 100 MG PO TID Lisinopril (Zestril), 40 MG PO DAILY Metoprolol Succinate (Metoprolol Succinate ER), 50 MG PO DAILY Polyethylene Glycol 3350 (Miralax), 17 GM PO Q2D Zoledronic Acid (Reclast), 5 MG INJ YEARLY Scheduled PRN Acetaminophen (Tylenol), 1,000 MG PO Q6H PRN for Pain Albuterol Hfa (Ventolin Hfa), 2 PUFFS INH Q6H PRN for SOB/Wheezing Ondansetron (Ondansetron Odt), 4 MG PO Q6H PRN for Nausea Allergies Coded Allergies: Adenosine (Verified Allergy, Unknown, "pt not sure had it in er years ago ", 04/22/16) Physical Exam Vital Signs Date Time Temp Pulse Resp B/P (MAP) Pulse Ox O2 Delivery O2 Flow Rate FiO2 05/08/17 23:04 49 190/64 05/08/17 22:19 54 20 205/63 95 Room Air 05/08/17 22:04 48 05/08/17 21:27 48 20 167/60 96 Room Air 05/08/17 20:23 52 20 190/62 97 Room Air 05/08/17 19:08 48 16 184/74 95 Room Air 05/08/17 19:08 95 Room Air 05/08/17 18:29 59 05/08/17 17:18 36.7 56 20 218/67 95 Room Air Physical Exam GENERAL: Uncomfortable, awake, alert, well-appearing, HENT: Normocephalic, atraumatic. Oropharynx unremarkable. EYES: Normal conjunctiva. Sclera non-icteric. NECK: Supple. No nuchal rigidity. FROM. No JVD. RESPIRATORY: Clear to auscultation. CARDIAC: Regular rate, normal rhythm. Extremities warm and well perfused. Pulses equal. ABDOMEN: Right sided tenderness to palpation. Left sided guarding and tenderness to percussion. Soft, non-distended. No rebound. No masses. RECTAL: Deferred. MUSCULOSKELETAL: Chest examination reveals no tenderness. The back is symmetrical on inspection without obvious abnormality. There is no CVA tenderness to palpation. No joint edema. LOWER EXTREMITIES: Bruising behind left calf. Calves are equal size bilaterally and non-tender. No edema. No discoloration. NEURO: Normal sensorium. No sensory or motor deficits noted. SKIN: No rash or jaundice noted. Medical Decision & Procedures ER Provider Diagnostic Interpretation: Radiology results as stated below per my review and radiologist interpretation: CT HEAD WITHOUT CONTRAST (CT) CLINICAL HISTORY: severe hypertension FRONTAL HEADACHE COMPARISON STUDY: No previous studies for comparison. TECHNIQUE: Axial CT of the brain is performed from the vertex to the skull base. IV contrast was not administered for this examination. CT DOSE: FINDINGS: No intra or extra-axial mass lesions are visualized. There is no CT evidence of acute cortical infarction. There is no evidence of midline shift. There is no acute hemorrhage. No calvarial fractures are visualized. There are minimal white matter hypodensities likely on a small vessel basis. There is a lacunar infarct in the right thalamus. There is no evidence of pathologic ventricular dilatation. There is no evidence of acute sinusitis IMPRESSION: Subacute or chronic right thalamic lacunar infarct. No acute intracranial findings. Electronically signed by: Lorne Go M.D. 05/08/2017 9:03 PM Dictated Date/Time: 05/08/2017 9:02 PM CHEST ONE VIEW PORTABLE CLINICAL HISTORY: severe hypertension COMPARISON STUDY: No previous studies for comparison. FINDINGS: The heart remains mildly enlarged. There is no failure. There is no focal pulmonary consolidation. There is stable blunting left lateral costophrenic angle. There is a right subclavian single lead pacemaker present. The position of electrode remains unchanged. Arthritic changes are present within the shoulders.[ IMPRESSION: Stable mild cardiomegaly and blunting of the left lateral costophrenic angle. No evidence of failure. No evidence of focal pulmonary consolidation Electronically signed by: Lorne Go M.D. 05/08/2017 6:14 PM Dictated Date/Time: 05/08/2017 6:[address] ABD/PELVIS IV AND ORAL CONT CLINICAL HISTORY: Right lower quadrant abdominal pain. Nausea. Hypertension. COMPARISON STUDY: 04/09/2016 TECHNIQUE: Following the IV administration of 91 mL of Optiray-320, CT scan of the abdomen and pelvis was performed from the lung bases to the proximal femurs. Images are reviewed in the axial, sagittal, and coronal planes. IV contrast was administered without complication. CT DOSE: 894.44 mGy.cm FINDINGS: Lower chest: There are small bilateral pleural effusions left greater than right. The heart is mildly enlarged. There are left basilar atelectatic changes. Liver: There is intra and extrahepatic biliary ductal dilatation. No focal hepatic masses are visualized. Gallbladder: The gallbladder remains difficult to separate from the adjacent dilated ducts. No gallstones are visualized. Spleen: Normal in size and attenuation. Pancreas: There is mild pancreatic ductal dilatation and pancreatic atrophy. Adrenal glands: Unremarkable. Kidneys: There is symmetric renal cortical enhancement. The kidneys are normal in size without hydronephrosis. Bowel: There are no transition zones indicate bowel obstruction. There is mild fecal retention. There is no acute diverticulitis. There is no evidence of acute appendicitis. Peritoneum: There is no intraperitoneal free air or abdominal ascites. Vasculature: There is an infrarenal abdominal aortic aneurysm measuring 3.9 cm in maximal diameter. There is also dilatation of the suprarenal abdominal aorta which measures 34 mm in maximal diameter. There is an indwelling IVC filter. Several of the struts project beyond the IVC lumen. Adenopathy: None. Pelvic viscera: The uterus appears surgically absent. Skeletal structures: There are postsurgical changes of prior lumbar laminectomies. IMPRESSION: 1. No evidence of bowel obstruction. No evidence of free air 2. No evidence of acute appendicitis. No evidence of acute diverticulitis 3. Partially thrombosed infrarenal abdominal aortic aneurysm measuring 3.9 cm in maximal diameter 4. Small bilateral pleural effusions 5. Moderate intra and extrahepatic biliary ductal dilatation. The common bile duct measures 12 mm. There is also pancreatic ductal dilatation and pancreatic atrophy. The etiology of this ductal dilatation is not known. The biliary ductal dilatation has been present on studies dating back to November 2011. The pancreatic ductal dilatation is progressive. Electronically signed by: Lorne Go M.D. 05/08/2017 9:16 PM Dictated Date/Time: 05/08/2017 9:04 PM Laboratory Results 05/08/17 17:30 Red Blood Count 4.99, Mean Corpuscular Volume 96.4, Mean Corpuscular Hemoglobin 31.5, Mean Corpuscular Hemoglobin Concent 32.6, Mean Platelet Volume 10.0, Neutrophils (%) (Auto) 56.9, Lymphocytes (%) (Auto) 31.2, Monocytes (%) (Auto) 8.2, Eosinophils (%) (Auto) 3.4, Basophils (%) (Auto) 0.3, Neutrophils # (Auto) 3.49, Lymphocytes # (Auto) 1.91, Monocytes # (Auto) 0.50, Eosinophils # (Auto) 0.21, Basophils # (Auto) 0.02 05/08/17 17:30 Test 05/08/17 17:30 05/08/17 18:30 White Blood Count 6.13 K/uL (4.8-10.8) Red Blood Count 4.99 M/uL (4.2-5.4) Hemoglobin 15.7 g/dL (12.0-16.0) Hematocrit 48.1 % (37-47) Mean Corpuscular Volume 96.4 fL (80-100) Mean Corpuscular Hemoglobin 31.5 pg (25-34) Mean Corpuscular Hemoglobin Concent 32.6 g/dl (32-36) Platelet Count 198 K/uL (130-400) Mean Platelet Volume 10.0 fL (7.4-10.4) Neutrophils (%) (Auto) 56.9 % Lymphocytes (%) (Auto) 31.2 % Monocytes (%) (Auto) 8.2 % Eosinophils (%) (Auto) 3.4 % Basophils (%) (Auto) 0.3 % Neutrophils # (Auto) 3.49 K/uL (1.4-6.5) Lymphocytes # (Auto) 1.91 K/uL (1.2-3.4) Monocytes # (Auto) 0.50 K/uL (0.11-0.59) Eosinophils # (Auto) 0.21 K/uL (0-0.5) Basophils # (Auto) 0.02 K/uL (0-0.2) RDW Standard Deviation 49.0 fL (36.4-46.3) RDW Coefficient of Variation 13.8 % (11.5-14.5) Immature Granulocyte % (Auto) 0.0 % Immature Granulocyte # (Auto) 0.00 K/uL (0.00-0.02) Prothrombin Time 10.6 SECONDS (9.0-12.0) Prothromb Time International Ratio 1.0 (0.9-1.1) Activated Partial Thromboplast Time 23.3 SECONDS (21.0-31.0) Partial Thromboplastin Ratio 0.9 Anion Gap 8.0 mmol/L (3-11) Estimated GFR () 75.6 Estimated GFR (Non- 65.3 BUN/Creatinine Ratio 21.0 (10-20) Calcium Level 8.8 mg/dl (8.5-10.1) Total Bilirubin 0.4 mg/dl (0.2-1) Direct Bilirubin mg/dl (0-0.2) Aspartate Amino Transf (AST/SGOT) 22 U/L (15-37) Alanine Aminotransferase (ALT/SGPT) 20 U/L (12-78) Alkaline Phosphatase 75 U/L (45-117) Total Creatine Kinase 85 U/L (26-192) Creatine Kinase MB 1.7 ng/ml (0.5-3.6) Creatine Kinase MB Ratio 2.0 (0-3.0) Troponin I < 0.015 ng/ml (0-0.045) Total Protein 6.9 gm/dl (6.4-8.2) Albumin 3.4 gm/dl (3.4-5.0) Lipase 115 U/L (73-393) Thyroid Stimulating Hormone (TSH) 2.950 uIu/ml (0.300-4.500) Chemistry Specimen Hemolysis Urine Color YELLOW Urine Appearance CLEAR (CLEAR) Urine pH 6.5 (4.5-7.5) Urine Specific [place] 1.010 (1.000-1.030) Urine Protein NEG (NEG) Urine Glucose (UA) NEG (NEG) Urine Ketones NEG (NEG) Urine Occult Blood NEG (NEG) Urine Nitrite NEG (NEG) Urine Bilirubin NEG (NEG) Urine Urobilinogen NEG (NEG) Urine Leukocyte Esterase SMALL (NEG) Urine WBC (Auto) 1-5 /hpf (0-5) Urine RBC (Auto) 5-10 /hpf (0-4) Urine Hyaline Casts (Auto) 1-5 /lpf (0-5) Urine Epithelial Cells (Auto) 10-20 /lpf (0-5) Urine Bacteria (Auto) NEG (NEG) Laboratory results reviewed by me Medications Administered Medications (Trade) Dose Ordered Sig/Yifan Route Start Time Stop Time Status Last Admin Dose Admin Ondansetron HCl (Zofran Inj) 4 mg NOW STAT IV 05/08/17 18:03 05/08/17 18:05 DC 05/08/17 18:35 4 MG Hydromorphone HCl (Dilaudid Inj) 0.25 mg Q20M PRN IV 05/08/17 18:15 05/09/17 00:15 DC 05/08/17 18:36 0.25 MG Aspirin (Aspirin Chew) 324 mg NOW STAT PO 05/08/17 21:55 05/08/17 21:56 DC 05/08/17 22:10 324 MG Hydralazine HCl (HydrALAZINE INJ) 10 mg NOW STAT IV. 05/08/17 23:14 05/08/17 23:23 DC 05/08/17 23:30 10 MG ECG Indication: other (hypertension) Rate (beats per minute): 53 Rhythm: sinus bradycardia Findings: Q waves (Anterior), no acute ischemic change ED Course Medication Reconciliation: I attest that I have personally reviewed the patient' s current medication list Blood pressure screening: Patient was found to have an elevated blood pressure and was referred to their primary doctor for recheck and further treatment. 1747: The patient was evaluated in room C11B. A complete history and physical exam was performed. 1803: Zofran Injection 4 mg IV 1813: Dilaudid Injection .25mg IV 0: Ioversol 100 ml IV. 2154: Aspirin 324 mg PO. 2199: I discussed the patient's case with Dr. Renteria, [facility] Hospitalist. He understands the patient's condition and agrees to accept the patient. She will be further evaluated. 2202: I reevaluated the patient and she is feeling much better. I updated the patient and her family on the results. They understand the treatment plan and agree to be admitted. She will further be evaluated. Medical Decision Triage Nursing notes reviewed. The patient's presentation and history were concerning for labile hypertension, headache, and abdominal pain. Records were reviewed. The patient recently had an ultrasound of her AAA and it was without any significant change. The patient was given Zofran and fentanyl for symptom control and Dilaudid for symptom control. Imaging of her head and abdomen were ordered for CBC, chemistry panel, LFTs and lipase were unremarkable. Urinalysis did not reveal any significant abnormalities. On reassessment she was feeling better. Her blood pressure had diminished slightly although it was labile. CT imaging of the head was concerning for subacute infarct. Given her symptoms, headache, and fluctuating blood pressure to very high levels this was concerning. The patient was given oral aspirin. CT scanning of the abdomen and pelvis did not reveal any acute findings however she did have biliary and pancreatic ductal dilatation. On further clarification the patient has had months of right sided abdominal pain. She may need to have additional testing regarding the ductal dilatation. It appears that her aorta is more chronic issue. I discussed further evaluation and management in the hospital. The patient and daughter were very much in agreement and thankful for the recommendation of admission and consultation with internal medicine for further care. I did consult with internal medicine. The patient was evaluated in the Emergency Room. Consults Time Called: 2200 Consulting Physician: Dr. Renteria [facility] Hospitalist Returned Call: 2200 I discussed the patient's case with Dr. Renteria [facility] Hospitalist. He understands the patient's condition and agrees to accept the patient. She will be further evaluated. Impression Primary Impression: CVA (cerebral vascular accident) Additional Impressions: Hypertension Right sided abdominal pain Scribe Attestation The scribe's documentation has been prepared under my direction and personally reviewed by me in its entirety. I confirm that the note above accurately reflects all work, treatment, procedures, and medical decision making performed by me. Departure Information Dispostion Being Evaluated By Hospitalist (Dr. Renteria) Referrals Alexei Redman M.D. (PCP) Patient Instructions My [facility] Problem Qualifiers
[2017-05-09] MEDS: HEPARIN SOD 5000 UNIT/0.5 ML CARP SQ SCH ×3 (05:35→21:03)
[2017-05-09] MEDS: DOCUSATE SODIUM 100 MG CAP PO SCH (07:16)
[2017-05-09] MEDS: AMIODARONE 200 MG TAB PO SCH (07:16)
[2017-05-09] MEDS: GABAPENTIN 100 MG CAP PO SCH ×3 (07:17→21:01)
[2017-05-09] MEDS: METOPROLOL SUCC 50MG EXT REL TAB PO SCH (07:17)
[2017-05-09] MEDS: ASPIRIN 81 MG ECTAB PO SCH (07:17)
[2017-05-09] MEDS: LISINOPRIL 40 MG TAB PO SCH (07:18)
--- NOTE | 2017-05-09 10:06 | Neurology Consultation ---
Neurology Consultation Date of Consultation: May 09, 2017. Attending Physician: Tres Dillon D.O. Primary Care Physician: Alexei Redman M.D. Reason for Consultation: "subacute stroke" History of Present Illness The patient is an 87 year old female with a chief complaint of moderate confusion and headache occurring in the context of poorly controlled hypertension. The onset of her confusion is difficult to determine but it appears to have been a problem for at least a few days according to admission records. Past Medical/Surgical History Medical Problems: (1) CVA (cerebral vascular accident) Status: Acute (2) Hypertension Status: Acute (3) Nausea Status: Acute (4) Pneumonia Status: Acute (5) Right sided abdominal pain Status: Acute (6) Weakness Status: Acute (7) Weakness generalized Status: Acute Family History Noncontributory due to patient's advanced age Social History Smoking Status: Current every day smoker Drug Use: none Marital Status: single, Housing Status: lives with family Occupation Status: retired Allergies Coded Allergies: Adenosine (Verified Allergy, Unknown, "pt not sure had it in er years ago ", 04/22/16) Current Inpatient Medications Current Inpatient Medications Medications (Trade) Dose Ordered Sig/Yifan Route Start Time Stop Time Status Last Admin Dose Admin Ioversol (Optiray 320) 100 ml UD PRN IV 05/08/17 19:30 05/12/17 19:29 Heparin Sodium (Porcine) (Heparin Sq 5000 Unit/0.5ml) 5,000 unit Q8 SQ 05/09/17 06:00 06/08/17 05:59 05/09/17 05:35 5,000 UNIT Acetaminophen (Tylenol Tab) 650 mg Q4H PRN PO 05/08/17 23:30 06/07/17 23:29 05/09/17 00:21 650 MG Magnesium Hydroxide (Milk Of Magnesia Susp) 30 ml Q12H PRN PO 05/08/17 23:30 06/07/17 23:29 Ondansetron HCl (Zofran Inj) 4 mg Q6H PRN IV 05/08/17 23:30 06/07/17 23:29 05/09/17 07:14 4 MG Albuterol (Ventolin Hfa Inhaler) 2 puffs Q6H PRN INH 05/08/17 23:30 06/07/17 23:29 Amiodarone HCl (Cordarone Tab) 200 mg DAILY PO 05/09/17 09:00 06/08/17 08:59 05/09/17 07:16 200 MG Aspirin (Ecotrin Tab) 81 mg DAILY PO 05/09/17 09:00 06/08/17 08:59 05/09/17 07:17 81 MG Atorvastatin Calcium (Lipitor Tab) 40 mg HS PO 05/09/17 21:00 06/08/17 20:59 Docusate Sodium (coLACE CAP) 100 mg DAILY PO 05/09/17 09:00 06/08/17 08:59 05/09/17 07:16 100 MG Fentanyl (Duragesic Patch) 25 mcg Q72H TD 05/10/17 09:00 05/24/17 08:59 Gabapentin (Neurontin Cap) 100 mg TID PO 05/09/17 09:00 06/08/17 08:59 05/09/17 07:17 100 MG Lisinopril (Zestril Tab) 40 mg DAILY PO 05/09/17 09:00 06/08/17 08:59 05/09/17 07:18 40 MG Metoprolol Succinate (Toprol Xl Tab) 50 mg DAILY PO 05/09/17 09:00 06/08/17 08:59 05/09/17 07:17 50 MG Miscellaneous (Fentanyl Patch Remove & Waste) 1 ea Q3D@0859 N/A 05/10/17 08:59 06/09/17 08:58 Miscellaneous Information (Check Fentanyl Patch Placement) 1 ea QS N/A 05/09/17 00:00 06/08/17 00:00 05/09/17 07:18 1 EA Hydralazine HCl (HydrALAZINE INJ) 10 mg Q6H PRN IV. 05/09/17 00:30 06/08/17 00:29 Review of Systems complains of chronic right lower extremity weakness related to multiple lumbar spinal surgeries c/o poor vision due to macular degeneration A full 10 point review of systems was obtained from this patient with pertinent positives and negatives described in the history of present illness and listed above. All other systems reviewed and are negative. Physical Exam Vital Signs (Past 24 Hrs): Date Time Temp Pulse Resp B/P (MAP) Pulse Ox O2 Delivery O2 Flow Rate FiO2 05/09/17 08:00 95 Room Air 05/09/17 07:58 36.6 52 18 120/61 (80) 95 Room Air 05/09/17 04:05 36.3 51 18 138/56 (83) 97 Room Air 05/09/17 04:00 Room Air 05/09/17 01:25 51 157/62 (93) 05/09/17 00:00 36.5 56 16 186/65 99 Room Air 05/09/17 00:00 Room Air 05/08/17 23:52 52 20 163/48 98 05/08/17 23:40 52 12 97 05/08/17 23:39 197/58 05/08/17 23:35 50 13 98 05/08/17 23:33 213/69 05/08/17 23:30 53 13 96 05/08/17 23:04 49 190/64 05/08/17 22:19 54 20 205/63 95 Room Air 05/08/17 22:04 48 05/08/17 21:27 48 20 167/60 96 Room Air 05/08/17 20:23 52 20 190/62 97 Room Air 05/08/17 19:08 48 16 184/74 95 Room Air 05/08/17 19:08 95 Room Air 05/08/17 18:29 59 05/08/17 17:18 36.7 56 20 218/67 95 Room Air Right lower extremity strength 2-3/5 with weak hip flexors, quad, hip extensors poor visual acuity with glasses The patient is a well-developed elderly female, no acute distress. She is alert and oriented to person place and time. Attention and concentration normal. Recent and remote memory intact area did she exhibits a normal spontaneous speech pattern as well as an age-appropriate fund of knowledge. Visual cerna full to confrontation. Visual acuity impaired bilaterally. Pupils equal round reactive to light and accommodation. Eye movements intact. Facial sensation intact bilaterally. There is normal facial symmetry and strength. Hearing intact to finger rub bilaterally. Palate elevates to midline. Tongue protrudes to midline. Shoulder shrug and hearing intact bilaterally. Sensation intact to light touch, temperature, vibration, and proprioception for all 4 limbs. Deep tendon reflexes are intact and symmetrical. There is no dysmetria with finger to nose or heel to van bilaterally. Ophthalmoscopic examination reveals normal- appearing optic disks and posterior segments, no papilledema or hemorrhages. Carotid pulses normal to auscultation bilaterally, no bruits. Gait and station not tested due to safety concerns. There is weakness for the right lower extremity as described above. Strength for the remaining limbs is intact. Muscle tone normal throughout. No atrophy. No abnormal movements observed. Laboratory Results Past 24 Hours: 05/08/17 17:30 Red Blood Count 4.99, Mean Corpuscular Volume 96.4, Mean Corpuscular Hemoglobin 31.5, Mean Corpuscular Hemoglobin Concent 32.6, Mean Platelet Volume 10.0, Neutrophils (%) (Auto) 56.9, Lymphocytes (%) (Auto) 31.2, Monocytes (%) (Auto) 8.2, Eosinophils (%) (Auto) 3.4, Basophils (%) (Auto) 0.3, Neutrophils # (Auto) 3.49, Lymphocytes # (Auto) 1.91, Monocytes # (Auto) 0.50, Eosinophils # (Auto) 0.21, Basophils # (Auto) 0.02 05/08/17 17:30 Test 05/08/17 17:30 05/08/17 18:30 White Blood Count 6.13 K/uL (4.8-10.8) Red Blood Count 4.99 M/uL (4.2-5.4) Hemoglobin 15.7 g/dL (12.0-16.0) Hematocrit 48.1 % (37-47) Mean Corpuscular Volume 96.4 fL (80-100) Mean Corpuscular Hemoglobin 31.5 pg (25-34) Mean Corpuscular Hemoglobin Concent 32.6 g/dl (32-36) Platelet Count 198 K/uL (130-400) Mean Platelet Volume 10.0 fL (7.4-10.4) Neutrophils (%) (Auto) 56.9 % Lymphocytes (%) (Auto) 31.2 % Monocytes (%) (Auto) 8.2 % Eosinophils (%) (Auto) 3.4 % Basophils (%) (Auto) 0.3 % Neutrophils # (Auto) 3.49 K/uL (1.4-6.5) Lymphocytes # (Auto) 1.91 K/uL (1.2-3.4) Monocytes # (Auto) 0.50 K/uL (0.11-0.59) Eosinophils # (Auto) 0.21 K/uL (0-0.5) Basophils # (Auto) 0.02 K/uL (0-0.2) RDW Standard Deviation 49.0 fL (36.4-46.3) RDW Coefficient of Variation 13.8 % (11.5-14.5) Immature Granulocyte % (Auto) 0.0 % Immature Granulocyte # (Auto) 0.00 K/uL (0.00-0.02) Prothrombin Time 10.6 SECONDS (9.0-12.0) Prothromb Time International Ratio 1.0 (0.9-1.1) Activated Partial Thromboplast Time 23.3 SECONDS (21.0-31.0) Partial Thromboplastin Ratio 0.9 Anion Gap 8.0 mmol/L (3-11) Estimated GFR () 75.6 Estimated GFR (Non- 65.3 BUN/Creatinine Ratio 21.0 (10-20) Calcium Level 8.8 mg/dl (8.5-10.1) Total Bilirubin 0.4 mg/dl (0.2-1) Direct Bilirubin mg/dl (0-0.2) Aspartate Amino Transf (AST/SGOT) 22 U/L (15-37) Alanine Aminotransferase (ALT/SGPT) 20 U/L (12-78) Alkaline Phosphatase 75 U/L (45-117) Total Creatine Kinase 85 U/L (26-192) Creatine Kinase MB 1.7 ng/ml (0.5-3.6) Creatine Kinase MB Ratio 2.0 (0-3.0) Troponin I < 0.015 ng/ml (0-0.045) Total Protein 6.9 gm/dl (6.4-8.2) Albumin 3.4 gm/dl (3.4-5.0) Lipase 115 U/L (73-393) Thyroid Stimulating Hormone (TSH) 2.950 uIu/ml (0.300-4.500) Chemistry Specimen Hemolysis Urine Color YELLOW Urine Appearance CLEAR (CLEAR) Urine pH 6.5 (4.5-7.5) Urine Specific [place] 1.010 (1.000-1.030) Urine Protein NEG (NEG) Urine Glucose (UA) NEG (NEG) Urine Ketones NEG (NEG) Urine Occult Blood NEG (NEG) Urine Nitrite NEG (NEG) Urine Bilirubin NEG (NEG) Urine Urobilinogen NEG (NEG) Urine Leukocyte Esterase SMALL (NEG) Urine WBC (Auto) 1-5 /hpf (0-5) Urine RBC (Auto) 5-10 /hpf (0-4) Urine Hyaline Casts (Auto) 1-5 /lpf (0-5) Urine Epithelial Cells (Auto) 10-20 /lpf (0-5) Urine Bacteria (Auto) NEG (NEG) Imaging CT head reveals chronic small vessel ischemic disease and a mildly hypodense area within the right thalamus potentially consistent with a subacute or chronic ischemic infarct Impression Hypertensive encephalopathy Possible subacute ischemic stroke right thalamus, but no signs or symptoms that would suggest a right thalamic infarct Chronic right lower extremity weakness probably due to sequela of lumbar spinal stenosis and multiple spinal surgeries Plan would obtain a repeat CTH, unable to have MRI due to pacer would obtain CTA head and neck as well agree with ASA (h/o resolved afib noted, uncertain if anticoagulation indicated in this case)
--- NOTE | 2017-05-09 11:35 | DIAGNOSTIC IMAGING REPORT ---
HEAD CTA HISTORY: Severe hypertension. Stroke symptoms. Frontal headache. TECHNIQUE: Multiaxial CT images of the head were performed both before and after the intravenous administration of contrast to evaluate the major cerebral vessels. Maximum intensity projection images were also obtained. COMPARISON: Head CT 05/08/2017. FINDINGS: No change in the small subacute to chronic right lacunar infarct. No mass, hematoma, midline shift. The ventricles are stable in size. Moderate to severe calcified plaque within the bilateral carotid siphons. This results in approximately 50% stenosis at the supraclinoid segment of the bilateral internal carotid arteries. No significant stenosis or occlusion within the distal vertebral arteries are better. The bilateral ACAs, MCAs, imitation marble mechanic show no significant stenosis, occlusion, or aneurysm. IMPRESSION: 1. No change in the small subacute to chronic right thalamic lacunar infarct. 2. Approximately 50% stenosis at the supraclinoid segment of the bilateral internal carotid arteries due to the calcified plaque. 3. Otherwise, no significant stenosis, occlusion, or aneurysm within the bilateral ACAs, MCAs, or imitation marble mechanic. Electronically signed by: Darren Livingsotn M.D. 05/09/2017 11:34 AM Dictated Date/Time: 05/09/2017 11:25 AM
--- NOTE | 2017-05-09 11:39 | DIAGNOSTIC IMAGING REPORT ---
CT NECK ANGIO WITH CONTRAST CLINICAL HISTORY: Severe hypertension. Carotid stenosis. COMPARISON STUDY: 05/17/2013 TECHNIQUE: CT angiography was performed from the aortic arch to the skull base. MIP imaging was performed. The patient was scanned in a dynamic helical fashion during intravenous administration of 119 cc of Optiray 320. CT DOSE: Technique: CT angiogram of the carotid and vertebral arteries was obtained using intravenous contrast and 3-D reconstruction. NASCET criteria was utilized. Findings: There is a multinodular thyroid gland. Atheromatous plaque is present at the level of the carotid bifurcation. There is approximately 40% diameter carotid bulb narrowing. There is no hemodynamically significant internal carotid artery stenosis. There is no evidence of a dissection. Calcific plaque is also present within the petrous and cavernous carotid. Atheromatous plaque is present at the carotid bifurcation. There is approximately 40% diameter bulb narrowing. There is no evidence of hemodynamic significant stenosis internal carotid artery stenosis.. There is no evidence of dissection. Calcifications are also present within the cavernous carotid. There is no evidence of hemodynamically significant vertebral stenosis. There is no evidence of vertebral dissection. IMPRESSION: 1. Moderate atheromatous changes. There is approximately 40% diameter carotid bulb narrowing bilaterally. 2. No evidence of hemodynamically significant internal carotid bifurcation or vertebral artery stenosis. No evidence of dissection. 3. Calcific plaque involving the carotid siphons bilaterally. This finding will be described separately on the report of the CT angiography of the brain. Electronically signed by: Lorne Go M.D. 05/09/2017 11:37 AM Dictated Date/Time: 05/09/2017 11:27 AM
[2017-05-09] MEDS ORDERED: SIMETHICONE 80 MG CHEW PO PRN (13:45)
--- NOTE | 2017-05-09 13:49 | Family Medicine Progress Note ---
Progress Note Date of Service May 09, 2017. Subjective Pt evaluation today including: conversation w/ patient, physical exam Voiding: no voiding problems, no incontinence [place] ok today - had some gas, felt she could not burp it out well Denied any pain, weakness, or numbness Ate her entire breakfast Constitutional: No fever ENT: No hearing loss Respiratory: No cough, No sputum, No wheezing, No shortness of breath Cardiovascular: No chest pain Abdomen: No pain, No nausea, No vomiting, No diarrhea, No constipation Musculoskeletal: No joint pain Female : No dysuria Neurologic: No memory loss Psychiatric: No depression symptoms All Other Systems: Reviewed and Negative Medications Current Inpatient Medications Medications (Trade) Dose Ordered Sig/Yifan Route Start Time Stop Time Status Last Admin Dose Admin Ioversol (Optiray 320) 100 ml UD PRN IV 05/08/17 19:30 05/12/17 19:29 Heparin Sodium (Porcine) (Heparin Sq 5000 Unit/0.5ml) 5,000 unit Q8 SQ 05/09/17 06:00 06/08/17 05:59 05/09/17 05:35 5,000 UNIT Acetaminophen (Tylenol Tab) 650 mg Q4H PRN PO 05/08/17 23:30 06/07/17 23:29 05/09/17 00:21 650 MG Magnesium Hydroxide (Milk Of Magnesia Susp) 30 ml Q12H PRN PO 05/08/17 23:30 06/07/17 23:29 Ondansetron HCl (Zofran Inj) 4 mg Q6H PRN IV 05/08/17 23:30 06/07/17 23:29 05/09/17 07:14 4 MG Albuterol (Ventolin Hfa Inhaler) 2 puffs Q6H PRN INH 05/08/17 23:30 06/07/17 23:29 Amiodarone HCl (Cordarone Tab) 200 mg DAILY PO 05/09/17 09:00 06/08/17 08:59 05/09/17 07:16 200 MG Aspirin (Ecotrin Tab) 81 mg DAILY PO 05/09/17 09:00 06/08/17 08:59 05/09/17 07:17 81 MG Atorvastatin Calcium (Lipitor Tab) 40 mg HS PO 05/09/17 21:00 06/08/17 20:59 Docusate Sodium (coLACE CAP) 100 mg DAILY PO 05/09/17 09:00 06/08/17 08:59 05/09/17 07:16 100 MG Fentanyl (Duragesic Patch) 25 mcg Q72H TD 05/10/17 09:00 05/24/17 08:59 Gabapentin (Neurontin Cap) 100 mg TID PO 05/09/17 09:00 06/08/17 08:59 05/09/17 07:17 100 MG Lisinopril (Zestril Tab) 40 mg DAILY PO 05/09/17 09:00 06/08/17 08:59 05/09/17 07:18 40 MG Metoprolol Succinate (Toprol Xl Tab) 50 mg DAILY PO 05/09/17 09:00 06/08/17 08:59 05/09/17 07:17 50 MG Miscellaneous (Fentanyl Patch Remove & Waste) 1 ea Q3D@0859 N/A 05/10/17 08:59 06/09/17 08:58 Miscellaneous Information (Check Fentanyl Patch Placement) 1 ea QS N/A 05/09/17 00:00 06/08/17 00:00 05/09/17 07:18 1 EA Hydralazine HCl (HydrALAZINE INJ) 10 mg Q6H PRN IV. 05/09/17 00:30 06/08/17 00:29 Objective Vital Signs Date Time Temp Pulse Resp B/P (MAP) Pulse Ox O2 Delivery O2 Flow Rate FiO2 05/09/17 12:00 95 Room Air 05/09/17 11:51 36.7 60 18 171/65 (100) 95 Room Air 05/09/17 08:00 95 Room Air 05/09/17 07:58 36.6 52 18 120/61 (80) 95 Room Air 05/09/17 04:05 36.3 51 18 138/56 (83) 97 Room Air 05/09/17 04:00 Room Air 05/09/17 01:25 51 157/62 (93) 05/09/17 00:00 36.5 56 16 186/65 99 Room Air 05/09/17 00:00 Room Air 05/08/17 23:52 52 20 163/48 98 05/08/17 23:40 52 12 97 05/08/17 23:39 197/58 05/08/17 23:35 50 13 98 05/08/17 23:33 213/69 05/08/17 23:30 53 13 96 05/08/17 23:04 49 190/64 05/08/17 22:19 54 20 205/63 95 Room Air 05/08/17 22:04 48 05/08/17 21:27 48 20 167/60 96 Room Air 05/08/17 20:23 52 20 190/62 97 Room Air 05/08/17 19:08 48 16 184/74 95 Room Air 05/08/17 19:08 95 Room Air 05/08/17 18:29 59 05/08/17 17:18 36.7 56 20 218/67 95 Room Air Physical Exam General Appearance: WD/WN, no apparent distress Eyes: normal inspection, PERRL ENT: hearing grossly normal Neck: supple, no JVD Respiratory/Chest: lungs clear, normal breath sounds, no respiratory distress Cardiovascular: regular rate, rhythm, no murmur Abdomen: normal bowel sounds, non tender, soft Extremities: non-tender, no pedal edema, no calf tenderness Neurologic/Psychiatric: alert, normal mood/affect, oriented x 3 Skin: no rash Laboratory Results Last 24 Hours Test 05/08/17 17:30 05/08/17 18:30 White Blood Count 6.13 K/uL Red Blood Count 4.99 M/uL Hemoglobin 15.7 g/dL Hematocrit 48.1 % Mean Corpuscular Volume 96.4 fL Mean Corpuscular Hemoglobin 31.5 pg Mean Corpuscular Hemoglobin Concent 32.6 g/dl Platelet Count 198 K/uL Mean Platelet Volume 10.0 fL Neutrophils (%) (Auto) 56.9 % Lymphocytes (%) (Auto) 31.2 % Monocytes (%) (Auto) 8.2 % Eosinophils (%) (Auto) 3.4 % Basophils (%) (Auto) 0.3 % Neutrophils # (Auto) 3.49 K/uL Lymphocytes # (Auto) 1.91 K/uL Monocytes # (Auto) 0.50 K/uL Eosinophils # (Auto) 0.21 K/uL Basophils # (Auto) 0.02 K/uL RDW Standard Deviation 49.0 fL RDW Coefficient of Variation 13.8 % Immature Granulocyte % (Auto) 0.0 % Immature Granulocyte # (Auto) 0.00 K/uL Prothrombin Time 10.6 SECONDS Prothromb Time International Ratio 1.0 Activated Partial Thromboplast Time 23.3 SECONDS Partial Thromboplastin Ratio 0.9 Sodium Level 145 mmol/L Potassium Level 4.2 mmol/L Chloride Level 108 mmol/L Carbon Dioxide Level 29 mmol/L Anion Gap 8.0 mmol/L Blood Urea Nitrogen 17 mg/dl Creatinine 0.82 mg/dl Estimated GFR () 75.6 Estimated GFR (Non- 65.3 BUN/Creatinine Ratio 21.0 Random Glucose 91 mg/dl Calcium Level 8.8 mg/dl Total Bilirubin 0.4 mg/dl Direct Bilirubin mg/dl Aspartate Amino Transf (AST/SGOT) 22 U/L Alanine Aminotransferase (ALT/SGPT) 20 U/L Alkaline Phosphatase 75 U/L Total Creatine Kinase 85 U/L Creatine Kinase MB 1.7 ng/ml Creatine Kinase MB Ratio 2.0 Troponin I < 0.015 ng/ml Total Protein 6.9 gm/dl Albumin 3.4 gm/dl Lipase 115 U/L Thyroid Stimulating Hormone (TSH) 2.950 uIu/ml Chemistry Specimen Hemolysis Urine Color YELLOW Urine Appearance CLEAR Urine pH 6.5 Urine Specific [place] 1.010 Urine Protein NEG Urine Glucose (UA) NEG Urine Ketones NEG Urine Occult Blood NEG Urine Nitrite NEG Urine Bilirubin NEG Urine Urobilinogen NEG Urine Leukocyte Esterase SMALL Urine WBC (Auto) 1-5 /hpf Urine RBC (Auto) 5-10 /hpf Urine Hyaline Casts (Auto) 1-5 /lpf Urine Epithelial Cells (Auto) 10-20 /lpf Urine Bacteria (Auto) NEG HEAD CTA: IMPRESSION: 1. No change in the small subacute to chronic right thalamic lacunar infarct. 2. Approximately 50% stenosis at the supraclinoid segment of the bilateral internal carotid arteries due to the calcified plaque. 3. Otherwise, no significant stenosis, occlusion, or aneurysm within the bilateral ACAs, MCAs, or college scouting coordinator. NECK CTA: IMPRESSION: 1. Moderate atheromatous changes. There is approximately 40% diameter carotid bulb narrowing bilaterally. 2. No evidence of hemodynamically significant internal carotid bifurcation or vertebral artery stenosis. No evidence of dissection. 3. Calcific plaque involving the carotid siphons bilaterally. This finding will be described separately on the report of the CT angiography of the brain. Assessment and Plan 87 yo F who presented with hypertensive urgency (BP 218/60), now resolved, found to have a subacute stroke on CT head imaging. Plan Hypertensive urgency Improved with taking home medications: Toprol XL 50mg, Lisinopril 40mg daily Continue to monitor Subacute stroke CT Angiography and MRA neck completed today Is on aspirin 81mg Started on atorvastatin Neuro consulted GERD/ Dyspepsia Zantac and Simethicone started Bradycardia, history of atrial fibrillation Status post pacemaker( per patient, is not working) Continue amiodarone 200mg daily Dispo: Transfer to Med/Surg today Code status: FULL VTE: Heparin q8h Resident Physician Supervision Note: I interviewed and examined the patient. Discussed with Dr. Lopez and agree with findings and plan as documented in the note. Any exceptions or clarifications are listed here: None Documented By: Tres Dillon feeling better more like herself no other new complaints ROS otherwise negative except for as above vitals noted bp improving nad no facial droop or asymmetry hypertensive encephalopathy - more likely than autoregulation from subacute stroke - continue to titrate BP control, improving, stable for med surg - if ongoing stability/improvement then possibly home 05/10 otherwise as above Resident Tracking Resident Involvement: Resident Care Provided Care Provided: Adult Hospital Medicine
[2017-05-09] MEDS: HydrALAZINE HCL 20 MG/ML VIAL IV. PRN (20:55)
[2017-05-09] MEDS ORDERED: ATORVASTATIN 40 MG TAB PO SCH (21:00)
[2017-05-09] MEDS: RANITIDINE HCL 150 MG TAB PO SCH (21:01)
[2017-05-10] VITALS (7 sets, daily range): BP systolic 97–178; BP diastolic 45–67; PULSE 52–60; TEMP 36.4–36.5; O2SAT 94–96
[2017-05-10] MEDS: CHECK FENTANYL PATCH PLACEMENT SCH ×2 (00:19→09:17)
[2017-05-10] MEDS: HydrALAZINE HCL 20 MG/ML VIAL IV. PRN (03:16)
[2017-05-10] MEDS: ACETAMINOPHEN 325 MG TAB PO PRN (03:48)
[2017-05-10] MEDS: HEPARIN SOD 5000 UNIT/0.5 ML CARP SQ SCH ×2 (05:40→13:30)
--- NOTE | 2017-05-10 08:40 | Discharge Instructions ---
Discharge Instructions Date of Service May 10, 2017. Admission Reason for Admission: Severe Hypertension Discharge Discharge Diagnosis / Problem: Hypertensive urgency, Subacute stroke on CT Discharge Goals Goal(s): Improve disease control Activity Recommendations Activity Limitations: resume your previous activity . Instructions / Follow-Up Instructions / Follow-Up We will CHANGE your blood pressure medication timings, Instead of LISINOPRIL 40MG in the AM, take 20mg TWICE A DAY - We will send that Rx to the pharmacy for you Instead of TOPROL XL (Metoprolol) 50mg in the AM, take 25mg TWICE A DAY - We will send that in as well Check your BP at home during various points of the day and show these values to your primary care provider Risk Factors for Stroke: You can reduce your chances of stroke by working with your medical provider to adopt a healthy lifestyle. Some specific ways to lower your chance of stroke are: * If you are a smoker, now is the time to stop smoking cigarettes * If you are diabetic, improve the control of your blood sugars * Avoid excessive amounts of alcohol * Control high blood pressure * Lose weight if you are overweight * Be sure to lead an active lifestyle * Eat a healthy diet low in salt, cholesterol and fat You should know about other risk factors for stroke that you are unable to control. These include: * Age 55 years or older * Male gender * Certain racial groups: , or / * Family History of Stroke, Mini stroke or Heart Attack * Sickle Cell Disease Follow Up: It is important for you to keep your follow up appointments with your medical provider. Current Hospital Diet Patient's current hospital diet: AHA Diet (Heart Healthy) Discharge Diet Recommended Diet: AHA Diet (Heart Healthy) Pending Studies Studies pending at discharge: no Medical Emergencies . Who to Call and When: Medical Emergencies: Call 911 immediately if you experience any of the following warning signs and symptoms of Stroke: * Sudden numbness or weakness of the face, arm or leg, especially on one side of the body * Sudden confusion, trouble speaking or understanding * Sudden trouble seeing in one or both eyes * Sudden trouble walking, dizziness, loss of balance or coordination * Sudden severe headache with no cause Do not delay calling 911 if you experience any warning signs or symptoms of a stroke. Delay in seeking medical attention may affect what treatments can be given to you. . Non-Emergent Contact Non-Emergency issues call your: Primary Care Provider, Neurologist . . "Provider Documentation" section prepared by Em Lopez. . Stroke Core Measures Reason no t-PA for Stroke: Treatment not indicated Reason no antithrom by day 2: Treatment provided - N/A Reason no antithrom at D/C: Treatment provided - N/A Reason no statin at D/C: Treatment provided - N/A Reason no anticoag w/a fib: Treatment provided - N/A VTE Core Measure Inpt VTE Proph given/why not?: Unfractionated heparin SQ
[2017-05-10] MEDS ORDERED: METO25TA3 PO (08:43)
[2017-05-10] MEDS ORDERED: LISI20TA3 PO (08:43)
--- NOTE | 2017-05-10 08:46 | Discharge Summary ---
Discharge Summary Date of Service May 10, 2017. (Em Lopez MD) Discharge Summary Admission Date: May 08, 2017 at 23:20 Discharge Date: May 10, 2017 Discharge Disposition: Home Principal Diagnosis: Hypertensive Urgency, Subacute CVA Immunizations: Have You Had Influenza Vaccine: Unknown History of Tetanus Vaccine?: Unknown History of Pneumococcal: Unknown History of Hepatitis B Vaccine: Unknown Procedures: CT NECK ANGIO WITH CONTRAST CLINICAL HISTORY: Severe hypertension. Carotid stenosis. COMPARISON STUDY: 05/17/2013 TECHNIQUE: CT angiography was performed from the aortic arch to the skull base. MIP imaging was performed. The patient was scanned in a dynamic helical fashion during intravenous administration of 119 cc of Optiray 320. CT DOSE: Technique: CT angiogram of the carotid and vertebral arteries was obtained using intravenous contrast and 3-D reconstruction. NASCET criteria was utilized. Findings: There is a multinodular thyroid gland. Atheromatous plaque is present at the level of the carotid bifurcation. There is approximately 40% diameter carotid bulb narrowing. There is no hemodynamically significant internal carotid artery stenosis. There is no evidence of a dissection. Calcific plaque is also present within the petrous and cavernous carotid. Atheromatous plaque is present at the carotid bifurcation. There is approximately 40% diameter bulb narrowing. There is no evidence of hemodynamic significant stenosis internal carotid artery stenosis.. There is no evidence of dissection. Calcifications are also present within the cavernous carotid. There is no evidence of hemodynamically significant vertebral stenosis. There is no evidence of vertebral dissection. IMPRESSION: 1. Moderate atheromatous changes. There is approximately 40% diameter carotid bulb narrowing bilaterally. 2. No evidence of hemodynamically significant internal carotid bifurcation or vertebral artery stenosis. No evidence of dissection. 3. Calcific plaque involving the carotid siphons bilaterally. This finding will be described separately on the report of the CT angiography of the brain. HEAD CTA: IMPRESSION: 1. No change in the small subacute to chronic right thalamic lacunar infarct. 2. Approximately 50% stenosis at the supraclinoid segment of the bilateral internal carotid arteries due to the calcified plaque. 3. Otherwise, no significant stenosis, occlusion, or aneurysm within the bilateral ACAs, MCAs, or mri assistant. CT ABD/PELVIS IMPRESSION: 1. No evidence of bowel obstruction. No evidence of free air 2. No evidence of acute appendicitis. No evidence of acute diverticulitis 3. Partially thrombosed infrarenal abdominal aortic aneurysm measuring 3.9 cm in maximal diameter 4. Small bilateral pleural effusions 5. Moderate intra and extrahepatic biliary ductal dilatation. The common bile duct measures 12 mm. There is also pancreatic ductal dilatation and pancreatic atrophy. The etiology of this ductal dilatation is not known. The biliary ductal dilatation has been present on studies dating back to November 2011. The pancreatic ductal dilatation is progressive. CXR IMPRESSION: Stable mild cardiomegaly and blunting of the left lateral costophrenic angle. No evidence of failure. No evidence of focal pulmonary consolidation CT HEAD IMPRESSION: Subacute or chronic right thalamic lacunar infarct. No acute intracranial findings. Consultations: Neurology, Dr Montalvo (Em Lopez MD) Medication Reconciliation New Medications: Lisinopril (Prinivil) 20 Mg Tab 20 MG PO BID for 30 Days, #60 TAB Metoprolol Succ (Toprol Xl) (Toprol-Xl) 25 Mg Tabcr 25 MG PO BID for 30 Days, #60 TAB Continued Medications: Acetaminophen (Tylenol) 500 Mg Tab 1000 MG PO Q6H PRN for Pain, TAB Albuterol Hfa (Ventolin Hfa) 200 Puffs/00521 Mcg Aers 2 PUFFS INH Q6H PRN for SOB/Wheezing, #1 INHALER Amiodarone Hcl (Cordarone) 200 Mg Tab 200 MG PO DAILY, TAB Aspirin (Aspirin 81) 81 Mg Tab 81 MG PO DAILY Atorvastatin (Lipitor) 40 Mg Tab 40 MG PO HS, TAB Cholecalciferol (Vitamin D) 1,000 Unit Tab 2000 UNITS PO DAILY Docusate Sodium (Docusate Sodium) 100 Mg Cap 100 MG PO DAILY Fentanyl (Fentanyl) 25 Mcg Tdsy 25 MCG TD CQ72HR Gabapentin (Neurontin) 100 Mg Cap 100 MG PO TID, CAP Ondansetron (Ondansetron Odt) 1 Homepack Ea 4 MG PO Q6H PRN for Nausea for 14 Days, #20 EA Polyethylene Glycol 3350 (Miralax) 1 Pow Pow 17 GM PO Q2D, GM Zoledronic Acid (Reclast) 5 Mg/100 Ml Inj 5 MG INJ YEARLY Discontinued Medications: Lisinopril (Zestril) 40 Mg Tab 40 MG PO DAILY, 0 Refills Metoprolol Succinate (Metoprolol Succinate ER) 50 Mg Tabcr 50 MG PO DAILY Hospital Course 87-year-old female with a past medical history of hypertension, atrial fibrillation, coronary artery disease , abdominal aortic aneurysm, hyperlipidemia, peripheral vascular disease, spinal stenosis status post laminectomy, GERD, carotid artery occlusion presented to the ER with complaints of confusion in the setting of high blood pressure. Per the patient, " she felt like she was in outer space" and when her daughter checked her blood pressure, it was 218/60. She stated that she had a headache with nausea and blurring of vision which is now resolved. Denies any new onset weakness, numbness or tingling, slurring of speech or chest pain or difficult breathing. She has a history of spinal stenosis status post laminectomy done several years ago and complains of low back pain and lower extremity weakness especially in her right lower extremity. She ambulates in an electric chair and has a fentanyl patch for pain management. She also complains of constant, chronic right lower quadrant abdominal pain and nausea. She was scheduled for a CT scan tomorrow. HOSPITAL COURSE: 87 yo F who presented with hypertensive urgency (BP 218/60), now resolved, found to have a subacute stroke on CT head imaging. Plan Hypertensive urgency Improved with taking home medications: Toprol XL 50mg, Lisinopril 40mg daily BP started to rise in evenings and overnight Meds changed to Toprol XL 25mg BID and Lisinopril 20mg BID Subacute stroke CT Angiography and MRA neck completed today Is on aspirin 81mg Started on atorvastatin Neuro consulted GERD/ Dyspepsia Zantac and Simethicone started Bradycardia, history of atrial fibrillation Status post pacemaker (per patient, is not working) Continue amiodarone 200mg daily Dispo: Discharge today home Code status: FULL VTE: Heparin q8h Total Time Spent: Greater than 30 minutes This includes examination of the patient, discharge planning, medication reconciliation, and communication with other providers. (Em Lopez MD) Resident Physician Supervision Note: I interviewed and examined the patient. Discussed with Dr. Lopez and agree with findings and plan as documented in the note. Any exceptions or clarifications are listed here: None Documented By: Tres Dillon feeling better wants to go home discussed BP meds, expresses understanding. ROS otherwise negative except for as above vitals noted BP a bit diurnal variation but better overall, nad no focal deficits hypertensive urgency / hypertensive encephalopathy - improved. BP meds as above , stable for home, close outpt f/u (Tres Dillon D.O.) Discharge Instructions Please refer to the electronic Patient Visit Report (Discharge Instructions) for additional information. (Em Lopez MD) Follow-Up With PCP within a week Check BP at home 2-3 times per day (Em Lopez MD) Additional Copies To Alexei Redman M.D.
[2017-05-10] MEDS ORDERED: FENTANYL PATCH REMOVE & WASTE SCH (08:59)
[2017-05-10] MEDS ORDERED: FENTANYL 25 MCG/HR TDSY TD SCH (09:00)
[2017-05-10] MEDS: AMIODARONE 200 MG TAB PO SCH (09:16)
[2017-05-10] MEDS: METOPROLOL SUCC 50MG EXT REL TAB PO SCH (09:16)
[2017-05-10] MEDS: GABAPENTIN 100 MG CAP PO SCH ×2 (09:16→13:19)
[2017-05-10] MEDS: DOCUSATE SODIUM 100 MG CAP PO SCH (09:16)
[2017-05-10] MEDS: ASPIRIN 81 MG ECTAB PO SCH (09:16)
[2017-05-10] MEDS: RANITIDINE HCL 150 MG TAB PO SCH (09:16)
[2017-05-10] MEDS: LISINOPRIL 40 MG TAB PO SCH (09:17)
[2017-06-15] MEDS ORDERED: ONDA4TAB46 PO (10:59)
[2017-06-15] MEDS ORDERED: LISI20TA3 PO (11:00)
[2017-06-15] MEDS ORDERED: METO25TA3 PO (11:00)
[2017-09-06] MEDS ORDERED: ANT25 PO (05:31)
[2017-09-06] MEDS ORDERED: DRGTP25 TD (05:31)
[2017-09-06] MEDS ORDERED: MCRB100 PO (05:31)
== END 2017-05-10 13:31 | disposition home or self-care (01) | DRG 65 ==
LOC: C.EDB 17:15 → C.2T 23:20 → ENRESERV 23:24 → CANRESERV 05-09 15:58 → ENRESERV 05-09 16:00 → C.MS4W 05-09 16:31
PROVIDERS: ADMIT Family Medicine; ATTEND Family Medicine
DX: I63.9 Cerebral infarction, unspecified (principal); I67.4 Hypertensive encephalopathy; I16.0 Hypertensive urgency; K21.9 Gastro-esophageal reflux disease without esophagitis; R10.13 Epigastric pain; R00.1 Bradycardia, unspecified; I48.91 Unspecified atrial fibrillation; I25.10 Atherosclerotic heart disease of native coronary artery without angina pectoris; I71.4 Abdominal aortic aneurysm, without rupture; E78.5 Hyperlipidemia, unspecified; I73.9 Peripheral vascular disease, unspecified; I65.29 Occlusion and stenosis of unspecified carotid artery; R10.31 Right lower quadrant pain; M48.00 Spinal stenosis, site unspecified; Z95.0 Presence of cardiac pacemaker

== ENCOUNTER 2017-08-31 13:07 | Inpatient (IN) | payer BC, OTHER ==
[~2017-08-31] VITALS: Ht 157.5 cm; Wt 64.4 kg
[~2017-08-31 13:07] MED LIST changes: -ALBUAER2 INH; +ASPI-435 PO; -ASPI81TA82 PO; +DRGTP25 TD; -FENT25DI2 TD; -LEVA45AE INH; +LISI20TA3 PO; -LISI40TA PO; +METO25TA3 PO; +ONDA4TAB46 PO; -PANT40TA PO; -TPRSR50 PO; +VNTHFA/IN INH; -ZFRODT4HP PO
[2017-08-31] MEDS ORDERED: SODIUM CHLORIDE 0.9% 1000ML 250 ML IV STA (14:10)
[2017-08-31] MEDS ORDERED: SODIUM CHLORIDE 0.9% 1000ML 1,000 ML IV STA (14:10)
[2017-08-31 14:57] LABS: BASO % 0.1 %; BASO ABS # 0.01 K/uL (0-0.2); COMPLETE YES; EOS % 1.9 %; HEMATOCRIT 46.4 % (37-47); IG% 0.1 %; LYMPH % 20.4 %; LYMPH ABS # 1.37 K/uL (1.2-3.4); MEAN CELL VOLUME 97.7 fL (80-100); MEAN CORPUSCULAR HEMOGLOBIN 31.2 pg (25-34); MEAN CORPUSCULAR HGB CONC 31.9 g/dl (32-36); MONO % 6.1 %; NEUT % 71.4 %; PLATELET COUNT 208 K/uL (130-400); RED BLOOD COUNT 4.75 M/uL (4.2-5.4); WHITE BLOOD COUNT 6.72 K/uL (4.8-10.8)
--- NOTE | 2017-08-31 15:09 | DIAGNOSTIC IMAGING REPORT ---
CHEST ONE VIEW PORTABLE CLINICAL HISTORY: 87 years-old Female presenting with CHEST PAIN. TECHNIQUE: Portable upright AP view of the chest was obtained. COMPARISON: 05/08/2017. FINDINGS: Right-sided pacer with lead to the right atrium remains in place. Atherosclerosis of aortic arch. Cardiac silhouette remains enlarged. Mitral annular calcification. Lungs mildly hyperinflated. Hazy left lung opacity with small left and possibly trace right pleural effusions. No pneumothorax. Degenerative changes of the bilateral glenohumeral joints with complete or near complete effacement of the acromiohumeral intervals likely indicating complete rotator cuff tears. Degenerative changes of the spine. Upper abdomen normal. IMPRESSION: 1. Hyperinflation. 2. Vague left basilar opacity and small left pleural effusion. This may represent atelectasis, mild edema, aspiration, or infection. Electronically signed by: Hector Cervantes M.D. 08/31/2017 3:08 PM Dictated Date/Time: 08/31/2017 3:05 PM
[2017-08-31 15:16] LABS: BUN/CREATININE RATIO 22.8 (10-20); CALCIUM 8.7 mg/dl (8.5-10.1); CREATININE 0.76 mg/dl (0.60-1.20); POTASSIUM 4.2 mmol/L (3.5-5.1)
--- NOTE | 2017-08-31 16:20 | DIAGNOSTIC IMAGING REPORT ---
CT SCAN OF THE BRAIN WITHOUT IV CONTRAST CLINICAL HISTORY: Headache. Near syncope. COMPARISON STUDY: CT of the brain dated 05/09/2017. TECHNIQUE: Unenhanced axial CT scan of the brain is performed from the vertex to the skull base. CT DOSE: 537.48 mGy.cm FINDINGS: Brain parenchyma: There are age-related involutional changes noting minimal subcortical and periventricular microangiopathic change. There is no hemorrhage, mass effect, or evidence of acute territorial ischemia by CT criteria. Burton-white matter is preserved. No extra-axial fluid collection is seen. Ventricles, sulci, cisterns: Prominent secondary to involutional change. Intracranial vasculature: There is atherosclerotic calcification of the cavernous carotid and vertebral arteries. Calvarium: Unremarkable. Sinuses and mastoids: The visualized paranasal sinuses are clear. The mastoid air cells are well pneumatized. Orbits: The bony orbits are grossly intact. There are bilateral ocular lens implants. IMPRESSION: There is no hemorrhage, mass effect, or evidence of acute territorial ischemia by CT criteria. Electronically signed by: Juan Galindo M.D. 08/31/2017 4:19 PM Dictated Date/Time: 08/31/2017 4:17 PM
--- NOTE | 2017-08-31 17:31 | EMERGENCY ROOM VISIT NOTE ---
History Report prepared by Felisa: Kevin Melendez Under the Supervision of: Dr. Pa Wise M.D. First contact with patient: 14:05 Chief Complaint: SYNCOPE Stated Complaint: dizzy/stroke sym Nursing Triage Summary: Pt arrives by ALS from home for syncopal episode while in the shower today. Pt became confused and had expresive aphasia. Pt awake, alert and oriented now. Stroke about 4 months ago. reports left side weakness from that. Pt c/o headache, left sided, still c/o dizziness. hx Macular degeneration History of Present Illness The patient is a 87 year old female who presents to the Emergency Room by EMS with complaints of a near-syncopal episode occurring shortly prior to arrival. She states that her episode occurred while in the bath tub. She states that she felt extremely weak during the episode, but did not actually lose consciousness. The patient currently complains of a headache, nausea, and fatigue. She denies any fever, chills, vomiting, numbness, or weakness. She is not on any blood thinners. The patient has a history of previous stroke, but denies any residual deficit. She has a history of bilateral leg weakness s/p back surgery. Source of History: patient Onset: Shortly prior to arrival Quality: other (near-syncope) Timing: other (episode) Associated Symptoms: + headache, + nausea, + fatigue, No fevers, No chills, No chest pain, No SOB, No vomiting Review of Systems See HPI for pertinent positives & negatives. A total of 10 systems reviewed and were otherwise negative. Past Medical & Surgical Medical Problems: (1) Abdominal aortic aneurysm (2) ASTHMA, UNSPECIFIED (3) ATRIAL FIBRILLATION (4) CAROTID ARTERY OCCLUSION W O CEREBRAL INFARCTION (5) ESOPHAGEAL REFLUX (6) HYPERLIPIDEMIA NEC/NOS (7) HYPERTENSION NOS (8) Nausea and vomiting (9) OLD MYOCARDIAL INFARCT (10) PERIPH VASCULAR DIS NOS (11) Severe hypertension (12) Thoracic spinal stenosis Surgical Problems: (1) S/P laminectomy Old medical records were reviewed. Nurse's notes were reviewed and I agree with. Family History Patient reports no known family medical history. Social History Smoking Status: Never Smoker Alcohol Use: none Drug Use: none Marital Status: single, Housing Status: lives with family Occupation Status: retired Current/Historical Medications Scheduled Amiodarone Hcl (Cordarone), 200 MG PO QAM Aspirin (Aspirin 81), 81 MG PO QAM Atorvastatin (Lipitor), 40 MG PO HS Cholecalciferol (Vitamin D), 2,000 UNITS PO QAM Docusate Sodium (Docusate Sodium), 100 MG PO BID Fentanyl (Fentanyl), 25 MCG TD CQ72HR Gabapentin (Neurontin), 200 MG PO TID Lisinopril (Prinivil), 20 MG PO QAM Metoprolol Succinate (Toprol Xl), 25 MG PO BID Polyethylene Glycol 3350 (Miralax), 17 GM PO Q2D Zoledronic Acid (Reclast), 5 MG INJ YEARLY Scheduled PRN Acetaminophen (Tylenol), 1,000 MG PO Q6H PRN for Pain Albuterol Hfa (Ventolin Hfa), 2 PUFFS INH Q6H PRN for SOB/Wheezing Ondansetron Hcl (Zofran), 4 MG PO PRN PRN for Nausea Allergies Coded Allergies: Adenosine (Verified Allergy, Unknown, "pt not sure had it in er years ago ", 08/31/17) Physical Exam Vital Signs Date Time Temp Pulse Resp B/P (MAP) Pulse Ox O2 Delivery O2 Flow Rate FiO2 08/31/17 17:14 52 08/31/17 14:34 50 20 176/57 96 Room Air 08/31/17 13:41 46 08/31/17 13:17 96 Room Air 08/31/17 13:17 36.9 52 16 192/62 97 Room Air Physical Exam General: Well developed well nourished in no acute distress, breathing comfortably on room air. Normal speech HEENT: Normal cephalic atraumatic. Pupils are equal round and reactive to light. Extraocular movements are intact. Oropharynx is pink with moist mucous membranes. No swelling of the mouth lips or tongue. Neck: Supple with a midline trachea. No meningeal signs or stiffness, no JVD or bruits. No Stridor. Chest: Clear to auscultation bilaterally. No wheezes or rhonchi. No increased work of breathing. Heart: regular rate and rhythm. Abdomen: Soft nontender, nondistended without rebound guarding or rigidity. Extremities: No cyanosis clubbing or edema. No calf tenderness or assymetry Spine/Back. Non tender to palpation. No CVA tenderness Skin: Good turgor without rashes. Neurologic exam: Cranial nerves two through 12 are intact. Motor and sensation are intact and symmetrical throughout. Medical Decision & Procedures ER Provider Diagnostic Interpretation: Radiology results as stated below per my review and radiologist interpretation: CT SCAN OF THE BRAIN WITHOUT IV CONTRAST FINDINGS: Brain parenchyma: There are age-related involutional changes noting minimal subcortical and periventricular microangiopathic change. There is no hemorrhage, mass effect, or evidence of acute territorial ischemia by CT criteria. Burton-white matter is preserved. No extra-axial fluid collection is seen. Ventricles, sulci, cisterns: Prominent secondary to involutional change. Intracranial vasculature: There is atherosclerotic calcification of the cavernous carotid and vertebral arteries. Calvarium: Unremarkable. Sinuses and mastoids: The visualized paranasal sinuses are clear. The mastoid air cells are well pneumatized. Orbits: The bony orbits are grossly intact. There are bilateral ocular lens implants. IMPRESSION: There is no hemorrhage, mass effect, or evidence of acute territorial ischemia by CT criteria. Electronically signed by: Juan Galindo M.D. 08/31/2017 4:19 PM CHEST ONE VIEW PORTABLE FINDINGS: Right-sided pacer with lead to the right atrium remains in place. Atherosclerosis of aortic arch. Cardiac silhouette remains enlarged. Mitral annular calcification. Lungs mildly hyperinflated. Hazy left lung opacity with small left and possibly trace right pleural effusions. No pneumothorax. Degenerative changes of the bilateral glenohumeral joints with complete or near complete effacement of the acromiohumeral intervals likely indicating complete rotator cuff tears. Degenerative changes of the spine. Upper abdomen normal. IMPRESSION: 1. Hyperinflation. 2. Vague left basilar opacity and small left pleural effusion. This may represent atelectasis, mild edema, aspiration, or infection. Electronically signed by: Hector Cervantes M.D. 08/31/2017 3:08 PM Laboratory Results 08/31/17 14:40 Red Blood Count 4.75, Mean Corpuscular Volume 97.7, Mean Corpuscular Hemoglobin 31.2, Mean Corpuscular Hemoglobin Concent 31.9, Mean Platelet Volume 10.0, Neutrophils (%) (Auto) 71.4, Lymphocytes (%) (Auto) 20.4, Monocytes (%) (Auto) 6.1, Eosinophils (%) (Auto) 1.9, Basophils (%) (Auto) 0.1, Neutrophils # (Auto) 4.79, Lymphocytes # (Auto) 1.37, Monocytes # (Auto) 0.41, Eosinophils # (Auto) 0.13, Basophils # (Auto) 0.01 08/31/17 14:40 Test 08/31/17 14:40 08/31/17 18:01 White Blood Count 6.72 K/uL (4.8-10.8) Red Blood Count 4.75 M/uL (4.2-5.4) Hemoglobin 14.8 g/dL (12.0-16.0) Hematocrit 46.4 % (37-47) Mean Corpuscular Volume 97.7 fL (80-100) Mean Corpuscular Hemoglobin 31.2 pg (25-34) Mean Corpuscular Hemoglobin Concent 31.9 g/dl (32-36) Platelet Count 208 K/uL (130-400) Mean Platelet Volume 10.0 fL (7.4-10.4) Neutrophils (%) (Auto) 71.4 % Lymphocytes (%) (Auto) 20.4 % Monocytes (%) (Auto) 6.1 % Eosinophils (%) (Auto) 1.9 % Basophils (%) (Auto) 0.1 % Neutrophils # (Auto) 4.79 K/uL (1.4-6.5) Lymphocytes # (Auto) 1.37 K/uL (1.2-3.4) Monocytes # (Auto) 0.41 K/uL (0.11-0.59) Eosinophils # (Auto) 0.13 K/uL (0-0.5) Basophils # (Auto) 0.01 K/uL (0-0.2) RDW Standard Deviation 49.6 fL (36.4-46.3) RDW Coefficient of Variation 13.8 % (11.5-14.5) Immature Granulocyte % (Auto) 0.1 % Immature Granulocyte # (Auto) 0.01 K/uL (0.00-0.02) Anion Gap 7.0 mmol/L (3-11) Est Creatinine Clear Calc Drug Dose 46.1 ml/min Estimated GFR () 82.9 Estimated GFR (Non- 71.5 BUN/Creatinine Ratio 22.8 (10-20) Calcium Level 8.7 mg/dl (8.5-10.1) Total Bilirubin 0.5 mg/dl (0.2-1) Direct Bilirubin 0.1 mg/dl (0-0.2) Aspartate Amino Transf (AST/SGOT) 22 U/L (15-37) Alanine Aminotransferase (ALT/SGPT) 24 U/L (12-78) Alkaline Phosphatase 92 U/L (45-117) Total Protein 6.9 gm/dl (6.4-8.2) Albumin 3.3 gm/dl (3.4-5.0) Lipase 107 U/L (73-393) Bedside Troponin I < 0.030 ng/ml (0-0.045) Laboratory studies as stated above per my review. Medications Administered Medications (Trade) Dose Ordered Sig/Yifan Route Start Time Stop Time Status Last Admin Dose Admin Sodium Chloride 250 ml @ 999 mls/hr Q16M STAT IV 08/31/17 14:10 08/31/17 14:25 DC 08/31/17 15:30 999 MLS/HR Sodium Chloride 1,000 ml @ 100 mls/hr Q10H STAT IV 08/31/17 14:10 09/01/17 00:09 08/31/17 16:30 100 MLS/HR ECG Indication: syncope Rate (beats per minute): 53 Rhythm: sinus bradycardia Findings: no acute ischemic change, other (Non-specific ST abnormality) Comparison ECG Date: May 08, 2017 Change: no significant change ED Course 1408: Past medical records reviewed. The patient was evaluated in room C1A, and a complete history and physical examination were performed. 1410: Ordered Sodium Chloride 1000 ml @ 100 mls/hr IV, Sodium Chloride 250 ml @ 999 mls/hr IV. 1720: Upon reevaluation, the patient is resting comfortably. I discussed the results and treatment plan with the patient. She verbalized agreement of the treatment plan. The patient will be evaluated for further management. Medical Decision Differentials include, but are not limited to; syncope, TIA, arrhythmia, anemia , and electrolyte or metabolic abnormality. This patient comes in as described above. She had an episode where she had near syncope. She may have also been dizzy or confused. She seemed to be doing do better at present. She was noted to be mildly bright bradycardic however she is hypertensive. She feels better present is in no acute neurologic deficits. IV access established and blood work was obtained. EKG does not suggest acute coronary syndrome or significant arrhythmia. She has acute electrolyte or metabolic malice CAT scan of her head was unremarkable. Chest x-ray does not show any acute findings to explain her symptoms. I do think she needs to be observed in the hospital this may have been a TIA or arrhythmia. I have consulted the [facility] hospitalist. Medication Reconcilliation Current Medication List: was personally reviewed by me Blood Pressure Screening Patient's blood pressure: Elevated blood pressure Blood pressure disposition: Referred to PCP Consults Time Called: 1720 Consulting Physician: [facility] [place] Returned Call: [phone] Discussed the patient's case. The patient will be evaluated for further management. Impression Primary Impression: Near syncope Additional Impression: Dizziness Scribe Attestation The scribe's documentation has been prepared under my direction and personally reviewed by me in its entirety. I confirm that the note above accurately reflects all work, treatment, procedures, and medical decision making performed by me. Departure Information Referrals Alexei Redman M.D. (PCP) Patient Instructions My [facility] Problem Qualifiers
[2017-08-31] MEDS ORDERED: ONDANSETRON INJ 2 MG/ML 2 ML VIAL IV PRN (19:00)
[2017-08-31] MEDS ORDERED: MAGNESIUM HYDROXIDE SUSP 30 ML UDC PO PRN (19:00)
[2017-08-31] MEDS ORDERED: PHARMACIST DISCHARGE MED REC CONSULT PRN (19:00)
[2017-08-31] MEDS ORDERED: ALBUTEROL HFA 8 GM INHALER INH PRN (19:00)
[2017-08-31] MEDS ORDERED: ALUMINUM/MAGNESIUM/SIMETH (MAALOX MAX) 30 ML UDC PO PRN (19:00)
[2017-08-31] MEDS ORDERED: ACETAMINOPHEN 325 MG TAB PO PRN (19:00)
[2017-08-31] MEDS ORDERED: OPTIRAY 320 IV PRN (19:30)
[2017-08-31] MEDS ORDERED: IV FLUIDS COMPLETED PRN (19:30)
--- NOTE | 2017-08-31 19:47 | History and Physical ---
History & Physical Date & Time of Service: Aug 31, 2017 at 19:22 Chief Complaint: dizzy/stroke sym Primary Care Physician: Alexei Redman M.D. History of Present Illness Source: patient, clinic records, hospital records This is an 87 y/o female with a history of HTN, HLD, CVA, CAD, h/o CA s/p stent to LAD in 2006, paroxysmal a-fib, h/o SVT s/p pacemaker, AAA, chronic pain, polyneuropathy, asthma, and GERD who presented to the ED on 08/31 with near syncope. The patient had been sitting in her bath tube when she suddenly felt very dizzy, lightheaded, weak, fatigued and nauseous. She denied any chest pain but did feel somewhat short of breath at the time. Her vision became more blurry and she felt a sense of impending doom. She notes she felt more confused and had a frontal headache. Her symptoms have now resolved, although she still has a mild headache now more towards the left side of her head. She no longer feels lightheaded, SOB, or nauseous, and her vision has returned to normal. The patient did recently have a stroke a few months ago along with hypertensive emergency with similar symptoms. The patient denies fevers, chills , sweats, chest pain, palpitations, claudication, cough, wheezing, vomiting, abdominal pain, dysuria, hematuria, urinary retention, paralysis, acute motor weakness, numbness and tingling. 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 (5) ESOPHAGEAL REFLUX Status: Resolved (6) HYPERLIPIDEMIA NEC/NOS Status: Resolved (7) HYPERTENSION NOS Status: Resolved (8) OLD MYOCARDIAL INFARCT Status: Resolved (9) PERIPH VASCULAR DIS NOS Status: Resolved (10) Thoracic spinal stenosis Status: Chronic CVA H/o SVT Polyneuropathy Surgical Problems: (1) S/P laminectomy Status: Resolved Family History Cancer (breast, uterine) Myocardial infarction Parkinson's disease Social History Smoking Status: Former Smoker (remote social smoker history over 50 years ago) Smokeless Tobacco Use: No Alcohol Use: none Drug Use: none Marital Status: single Housing status: lives with family (daughter) Occupational Status: retired Immunizations History of Influenza Vaccine: Unknown History of Tetanus Vaccine?: Unknown History of Pneumococcal: Unknown History of Hepatitis B Vaccine: Unknown Multi-Drug Resistant Organisms History of MDRO: No Allergies Coded Allergies: Adenosine (Verified Allergy, Unknown, "pt not sure had it in er years ago ", 08/31/17) Home Medications Scheduled Amiodarone Hcl (Cordarone), 200 MG PO QAM Aspirin (Aspirin 81), 81 MG PO QAM Atorvastatin (Lipitor), 40 MG PO HS Cholecalciferol (Vitamin D), 2,000 UNITS PO QAM Docusate Sodium (Docusate Sodium), 100 MG PO BID Fentanyl (Fentanyl), 25 MCG TD [id number] Gabapentin (Neurontin), 200 MG PO TID Lisinopril (Prinivil), 20 MG PO QAM Metoprolol Succinate (Toprol Xl), 25 MG PO BID Polyethylene Glycol 3350 (Miralax), 17 GM PO Q2D Zoledronic Acid (Reclast), 5 MG INJ YEARLY Scheduled PRN Acetaminophen (Tylenol), 1,000 MG PO Q6H PRN for Pain Albuterol Hfa (Ventolin Hfa), 2 PUFFS INH Q6H PRN for SOB/Wheezing Ondansetron Hcl (Zofran), 4 MG PO PRN PRN for Nausea Review of Systems Constitutional: + weakness, + fatigue, + problem reported (dizzy, lightheaded, near syncopal), No fever, No chills, No sweats Eyes: + worsening of vision, No eye pain, No diplopia ENT: No hearing loss, No sore throat, No trouble swallowing Respiratory: + shortness of breath, No cough, No wheezing Cardiovascular: No chest pain, No claudication, No palpitations Abdomen: + nausea, No pain, No vomiting Musculoskeletal: No joint pain, No muscle pain, No calf pain Genitourinary - Female: No dysuria, No urinary incontinence, No urinary retention, No hematuria Neurologic: No paralysis, No weakness, No numbness/tingling Integumentary: No rash, No itch, No color change Physical Exam Vital Signs Date Time Temp Pulse Resp B/P (MAP) Pulse Ox O2 Delivery O2 Flow Rate FiO2 08/31/17 19:01 58 16 206/60 98 Room Air 08/31/17 17:14 52 08/31/17 14:34 50 20 176/57 96 Room Air 08/31/17 13:41 46 08/31/17 13:17 96 Room Air 08/31/17 13:17 36.9 52 16 192/62 97 Room Air General appearance: Well-developed, well-nourished, no apparent distress Head: Normocephalic, atraumatic Eyes: Normal inspection, PERRL, EOMI ENT: Normal ENT inspection, hearing grossly normal, pharynx normal Neck: Supple, no JVD, trachea midline Respiratory/Chest: +Decreased breath sounds. Lungs clear to auscultation, no respiratory distress Cardiovascular: +Irregular. Regular rate, no gallop, no murmur Abdomen/GI: +Left flank TTP. Normal bowel sounds, soft Extremities/Musculoskeletal: Normal inspection, no calf tenderness, no pedal edema Neurological/Psych: Alert, normal mood/affect, oriented x 3 Skin: Normal color, warm/dry, no rash Diagnostics Laboratory Results Results Past 24 Hours Test 08/31/17 14:40 08/31/17 18:01 Range/Units White Blood Count 6.72 4.8-10.8 K/uL Red Blood Count 4.75 4.2-5.4 M/uL Hemoglobin 14.8 12.0-16.0 g/dL Hematocrit 46.4 37-47 % Mean Corpuscular Volume 97.7 80-100 fL Mean Corpuscular Hemoglobin 31.2 25-34 pg Mean Corpuscular Hemoglobin Concent 31.9 32-36 g/dl Platelet Count 208 130-400 K/uL Mean Platelet Volume 10.0 7.4-10.4 fL Neutrophils (%) (Auto) 71.4 % Lymphocytes (%) (Auto) 20.4 % Monocytes (%) (Auto) 6.1 % Eosinophils (%) (Auto) 1.9 % Basophils (%) (Auto) 0.1 % Neutrophils # (Auto) 4.79 1.4-6.5 K/uL Lymphocytes # (Auto) 1.37 1.2-3.4 K/uL Monocytes # (Auto) 0.41 0.11-0.59 K/uL Eosinophils # (Auto) 0.13 0-0.5 K/uL Basophils # (Auto) 0.01 0-0.2 K/uL RDW Standard Deviation 49.6 36.4-46.3 fL RDW Coefficient of Variation 13.8 11.5-14.5 % Immature Granulocyte % (Auto) 0.1 % Immature Granulocyte # (Auto) 0.01 0.00-0.02 K/uL Sodium Level 143 136-145 mmol/L Potassium Level 4.2 3.5-5.1 mmol/L Chloride Level 107 98-107 mmol/L Carbon Dioxide Level 29 21-32 mmol/L Anion Gap 7.0 3-11 mmol/L Blood Urea Nitrogen 17 7-18 mg/dl Creatinine 0.76 0.60-1.20 mg/dl Est Creatinine Clear Calc Drug Dose 46.1 ml/min Estimated GFR () 82.9 Estimated GFR (Non- 71.5 BUN/Creatinine Ratio 22.8 10-20 Random Glucose 94 70-99 mg/dl Calcium Level 8.7 8.5-10.1 mg/dl Total Bilirubin 0.5 0.2-1 mg/dl Direct Bilirubin 0.1 0-0.2 mg/dl Aspartate Amino Transf (AST/SGOT) 22 15-37 U/L Alanine Aminotransferase (ALT/SGPT) 24 12-78 U/L Alkaline Phosphatase 92 45-117 U/L Total Protein 6.9 6.4-8.2 gm/dl Albumin 3.3 3.4-5.0 gm/dl Lipase 107 73-393 U/L Bedside Troponin I < 0.030 0-0.045 ng/ml Diagnostic Radiology Reviewed the following studies and agree with interpretation as follows: Patient Name: SANDOR FERGUSON Unit Number: [id number] Dictated: 08/31/171616 Transcribed: 08/31/171616 EV Printed Date/Time: [~ rep prt dt]/[~ rep prt tm] [~ rep ct labl] - [~ rep ct ivnm] [facility] [place] [address] Dictated: 08/31/171616 Transcribed: 08/31/171616 EV Printed Date/Time: [~ rep prt dt]/[~ rep prt tm] [~ rep ct labl] - [~ rep ct ivnm] Patient: SANDOR FERGUSON Address1: [address] Rec: [id number] Address2: Acct ID: [id number] [facility] Zip: [place] [address] Date: 1930 Sex: F Room/Bed: Ref Phy: Alexei Redman M.D. SC: HIMANSHU Att Phy: Report #: [id number] Uyen Phy: Alexei Redman M.D. Test: HWO Admit Phy: Cook Boat: MONIE Interpreting Phy: Juan Galindo M.D. Diagnosis: dizzy/stroke sym Ordering Phy: Pa Wise M.D. Service Date: 08/31/17 Admit Date: 08/31/17 MNE: [id number] CONF: DICTATED BY: Juan Galindo M.D.]] CC: Alexei Redman M.D. Newcomb, Brian D., M.D. Endcc: [~ rep ct add3]] CT SCAN OF THE BRAIN WITHOUT IV CONTRAST CLINICAL HISTORY: Headache. Near syncope. COMPARISON STUDY: CT of the brain dated 05/09/2017. TECHNIQUE: Unenhanced axial CT scan of the brain is performed from the vertex to the skull base. CT DOSE: 537.48 mGy.cm FINDINGS: Brain parenchyma: There are age-related involutional changes noting minimal subcortical and periventricular microangiopathic change. There is no hemorrhage, mass effect, or evidence of acute territorial ischemia by CT criteria. Burton-white matter is preserved. No extra-axial fluid collection is seen. Ventricles, sulci, cisterns: Prominent secondary to involutional change. Intracranial vasculature: There is atherosclerotic calcification of the cavernous carotid and vertebral arteries. Calvarium: Unremarkable. Sinuses and mastoids: The visualized paranasal sinuses are clear. The mastoid air cells are well pneumatized. Orbits: The bony orbits are grossly intact. There are bilateral ocular lens implants. IMPRESSION: There is no hemorrhage, mass effect, or evidence of acute territorial ischemia by CT criteria. Electronically signed by: Juan Galindo M.D. 08/31/2017 4:19 PM Dictated Date/Time: 08/31/2017 4:17 PM The status of this report is Signed. Draft = Not yet reviewed or approved by Radiologist. Signed = Reviewed and approved by Radiologist. <AttendingPhy></AttendingPhy> <FamilyPhy>Alexei Redman M.D.</FamilyPhy> < PrimaryPhy>Alexei Redman M.D.</PrimaryPhy> <UnitNumber>[id number]</UnitNumber > <VisitNumber>[id number]</VisitNumber> <PatientName>SANDOR FERGUSON</ PatientName> <DateOfBirth>1930</DateOfBirth> <Location>C.EDC</Location> < ServiceDate>08/31/17</ServiceDate> <MNE>ESINDI</MNE> <OrderingPhy>Pa Wise M.D.</OrderingPhy> <OrderingPhyMNE>f rep ord dr guillen</OrderingPhyMNE> < DictatingPhyMNE>f rep dict dr guillen</DictatingPhyMNE> <CCListMNE>f rep ct mne</ CCListMNE> <AdmittingPhyMNE>f pt admit dr guillen</AdmittingPhyMNE> <AttendingPhyMNE >f pt attend dr guillen</AttendingPhyMNE> <ConsultingPhyMNE>f pt consult dr guillen</ConsultingPhyMNE> <FamilyPhyMNE>f pt fam dr guillen</FamilyPhyMNE> <OtherPhyMNE>f pt other dr guillen</OtherPhyMNE> < PrimaryPhyMNE>f pt prim care dr guillen</PrimaryPhyMNE> <ReferringPhyMNE>f pt referring dr guillen</ReferringPhyMNE> Patient Name: SANDOR FERGUSON Unit Number: [id number] Dictated: 08/31/171504 Transcribed: 08/31/171504 PBS Printed Date/Time: [~ rep prt dt]/[~ rep prt tm] [~ rep ct labl] - [~ rep ct ivnm] [facility] [place] [address] Dictated: 08/31/171504 Transcribed: 08/31/17 150 PBS Printed Date/Time: [~ rep prt dt]/[~ rep prt tm] [~ rep ct labl] - [~ rep ct ivnm] Patient: SANDOR FERGUSON Address1: [address] [place] [address] Rec: [id number] Address2: Acct ID: [id number] [facility] Zip: [place] [address] Date: 1930 Sex: F Room/Bed: Ref Phy: Alexei Redman M.D. SC: CMARTA Att Phy: Report #: [id number] Uyen Phy: Alexei Redman M.D. Test: CXR1P Admit Phy: Cook Boat: TAZ Interpreting Phy: Hector Cervantes MD Diagnosis: dizzy/stroke sym Ordering Phy: Pa Wise M.D. Service Date: 08/31/17 Admit Date: 08/31/17 MNE: [id number] CONF: DICTATED BY: Hector Cervantes MD]] CC: Alexei Redman M.D. Newcomb, Brian D., M.D. Endcc: [~ rep ct add3]] CHEST ONE VIEW PORTABLE CLINICAL HISTORY: 87 years-old Female presenting with CHEST PAIN. TECHNIQUE: Portable upright AP view of the chest was obtained. COMPARISON: 05/08/2017. FINDINGS: Right-sided pacer with lead to the right atrium remains in place. Atherosclerosis of aortic arch. Cardiac silhouette remains enlarged. Mitral annular calcification. Lungs mildly hyperinflated. Hazy left lung opacity with small left and possibly trace right pleural effusions. No pneumothorax. Degenerative changes of the bilateral glenohumeral joints with complete or near complete effacement of the acromiohumeral intervals likely indicating complete rotator cuff tears. Degenerative changes of the spine. Upper abdomen normal. IMPRESSION: 1. Hyperinflation. 2. Vague left basilar opacity and small left pleural effusion. This may represent atelectasis, mild edema, aspiration, or infection. Electronically signed by: Hector Cervantes M.D. 08/31/2017 3:08 PM Dictated Date/Time: 08/31/2017 3:05 PM The status of this report is Signed. Draft = Not yet reviewed or approved by Radiologist. Signed = Reviewed and approved by Radiologist. <AttendingPhy></AttendingPhy> <FamilyPhy>Alexei Redman M.D.</FamilyPhy> < PrimaryPhy>Alexei Redman M.D.</PrimaryPhy> <UnitNumber>[id number]</UnitNumber > <VisitNumber>[id number]</VisitNumber> <PatientName>SANDOR FERGUSON</ PatientName> <DateOfBirth>1930</DateOfBirth> <Location>C.EDC</Location> < ServiceDate>08/31/17</ServiceDate> <MNE>ESINDI</MNE> <OrderingPhy>Pa Wise M.D.</OrderingPhy> <OrderingPhyMNE>f rep ord dr guillen</OrderingPhyMNE> < DictatingPhyMNE>f rep dict dr guillen</DictatingPhyMNE> <CCListMNE>f rep ct mne</ CCListMNE> <AdmittingPhyMNE>f pt admit dr guillen</AdmittingPhyMNE> <AttendingPhyMNE >f pt attend dr guillen</AttendingPhyMNE> <ConsultingPhyMNE>f pt consult dr guillen</ConsultingPhyMNE> <FamilyPhyMNE>f pt fam dr guillen</FamilyPhyMNE> <OtherPhyMNE>f pt other dr guillen</OtherPhyMNE> < PrimaryPhyMNE>f pt prim care dr guillen</PrimaryPhyMNE> <ReferringPhyMNE>f pt referring dr guillen</ReferringPhyMNE> EKG Reviewed EKG and agree with interpretation as follows: 53 bpm, sinus bradycardia Impression Assessment and Plan 87 y/o female with a history of HTN, HLD, CVA, CAD, h/o CA s/p stent to LAD in 2006, paroxysmal a-fib, h/o SVT s/p pacemaker, AAA, chronic pain, polyneuropathy , asthma, and GERD who presented to the ED on 08/31 with near syncope. Pt bradycardic, hypertensive on arrival. Head CT negative. CXR with small left pleural effusion and vague left basilar opacity, atelectasis vs mild edema vs aspiration vs infection. EKG no ischemic changes. Labs grossly unremarkable. Pt's symptoms resolved on admission. Near syncope, possible TIA. H/o carotid artery stenosis -Admit to telemetry for observation -Troponin stat -Stroke protocol -CTA head and neck ordered -Pt's pacemaker not MRI compatible. Consider repeat head CT tomorrow -Echocardiogram ordered -Fasting lipid profile, HgbA1c -Consult neurology, appreciate recs -PT/OT evaluate and treat -Continue ASA, statin Hypertensive emergency--BP up to 206/60, w/headache and blurry vision -Pt bradycardic -Hydralazine 2.5 mg IV x 1. Will allow for permissive HTN due to possible TIA/ CVA -Continue Toprol XL 25 mg PO BID and lisinopril 20 mg PO qd HLD -Continue Lipitor 40 mg PO qd Paroxysmal a-fib, h/o SVT--pacemaker in place -Continue amiodarone 200 mg PO qd AAA -Infrarenal AAA 3.9 cm on last abdomen/pelvis CT 05/08/17 Chronic pain -Continue fentanyl 25 mcg TD q72h. Due for new patch today Polyneuropathy -Continue gabapentin 200 mg PO TID Asthma -Continue albuterol inhaler prn SOB/wheezing Code Status -Level I, FULL RESUSCITATION STATUS Resident Physician Supervision Note: I was present with RIAN Bone during the history and exam. I discussed the case with the PA and agree with the findings and plan as documented in the note. Any exceptions or clarifications are listed here: 87 y/o F Hx CAD - LAD stent, HTN, HPL, CVA, pacer - presenting following a near syncopal episode with questionable acute mental status changes although she was getting up out of a hot bath and symptoms were transient - per daughters description she may have had slurred speech and unilat weakness AAO x 3 S1,2 R +M CTAB NT, ND minimal edema no acute deficits P: Admitted for presumed TIA - could not confirm deficits as resolved prior to admission BP was markedly elevated on arrival - will not treat unless > 190 Cont ASA, statin Above discussed with Pt and daughter at bedside in addition to ER attending AAO x 3 S1,2 R CTAB NT, ND No CCE P: Documented By: Sam Renteria Level of Care Telemetry Resuscitation Status FULL RESUSCITATION VTE Prophylaxis VTE Risk Assessment Done? Y/N: Yes Risk Level: Moderate Given or contraindicated: Enoxaparin (Lovenox)SQ, T.E.D. Stockings, SCD's
[2017-08-31 20:20] LABS: CKMB/CK RATIO 2.4 (0-3.0); MAGNESIUM 2.2 mg/dl (1.8-2.4)
[2017-08-31 20:43] VITALS: BP 194/62; PULSE 52; TEMP 36.7; O2SAT 93; Ht 157.5 cm; Wt 64.4 kg
[2017-08-31] MEDS ORDERED: NURSING VERBAL MED ORDER ONE (20:45)
[2017-08-31] MEDS: FENTANYL PATCH REMOVE & WASTE SCH (20:59)
[2017-08-31 21:00] LABS: PROTHROMBIN TIME (PATIENT) 10.8 SECONDS (9.0-12.0)
[2017-08-31] MEDS ORDERED: HydrALAZINE HCL 20 MG/ML VIAL IV. ONE (21:00)
[2017-08-31] MEDS: METOPROLOL SUCC 25MG EXT REL TAB PO SCH (21:40)
[2017-08-31] MEDS ORDERED: INFLUENZA ADMINISTRATION CHARGE ONE (21:45)
[2017-08-31] MEDS ORDERED: INFLUENZA VACCINE HIGH DOSE 65+ 0.5 ML SYR IM. ONE (21:45)
--- NOTE | 2017-08-31 22:11 | DIAGNOSTIC IMAGING REPORT ---
HEAD ANGIO WITH CONTRAST HISTORY: 87 years-old Female acute headache with near syncope COMPARISON: CT head of same day, CTA head and neck 05/09/2017 TECHNIQUE: Multiaxial CT images of the head were performed both before and after the intravenous administration of contrast to evaluate the major cerebral vessels. Maximum intensity projection images were also obtained. Measurements were made according to NASCET criteria. A dose lowering technique was used consistent with the principals of RUBI. FINDINGS: Moderate to extensive atherosclerotic plaquing is again seen involving the clinoid and supraclinoid internal carotid arteries bilaterally with approximately 50% stenosis in seen bilaterally, notably on image 59 series 3 on the left. These findings appear unchanged. The bilateral middle cerebral arteries, anterior cerebral arteries and anterior communicating artery are patent. There is atherosclerotic plaquing of the V4 segment left vertebral artery without high-grade stenosis. Vertebral arteries, basilar artery and posterior cerebral arteries are patent. No high-grade stenosis, dissection, aneurysm or rocks or branch occlusion. Venous sinuses appear patent. Chronic right splenic infarction. No abnormal enhancement, midline shift or hydrocephalus. No territorial ischemia. Mild to moderate atrophy. Bones appear intact. Sinuses are clear. Note is made of a metopic suture. Soft tissues are unremarkable. IMPRESSION: 1. Moderate to extensive atherosclerotic plaquing of the clinoid and supraclinoid internal carotid arteries is again seen bilaterally causing approximately 50% luminal narrowing bilaterally. These findings appear unchanged from comparison study. 2. No high-grade stenosis, proximal branch occlusion, aneurysm or dissection. The above report was generated using voice recognition software. It may contain grammatical, syntax or spelling errors. Electronically signed by: Alvin Presley M.D. 08/31/2017 10:09 PM Dictated Date/Time: 08/31/2017 10:02 PM
[2017-08-31] MEDS: FENTANYL 25 MCG/HR TDSY TD SCH (22:15)
[2017-08-31] MEDS: ENOXAPARIN 40 MG/0.4 ML SYR SC SCH (22:16)
[2017-08-31] MEDS: GABAPENTIN 100 MG CAP PO SCH (22:17)
[2017-08-31] MEDS: ATORVASTATIN 40 MG TAB PO SCH (22:17)
[2017-08-31] MEDS: DOCUSATE SODIUM 100 MG CAP PO SCH (22:17)
--- NOTE | 2017-08-31 22:18 | DIAGNOSTIC IMAGING REPORT ---
NECK ANGIO WITH CONTRAST CLINICAL HISTORY: 87 years-old Female presents with acute headache and near syncope. Concern for a period COMPARISON STUDY: CTA neck 05/09/2017 TECHNIQUE: Following the IV administration of 116 ml of Optiray 320, CT angiogram of the neck was performed from the aortic arch to the skull base. Images are reviewed in the axial, sagittal, and coronal planes. 3-D MIPS images are created and assessed. IV contrast was administered without complication. All measurements were calculated based on NASCET criteria. A dose lowering technique was utilized adhering to the principles of ALARA. FINDINGS: CTA: Moderate to extensive atherosclerotic plaquing of the aortic arch is present with note made of a bovine aortic arch. The imaged proximal great vessels are patent. Extensive mixed plaquing of the left carotid bulb is again noted with approximately 50% luminal narrowing is seen on image 157 series 2. There is tortuosity of the mid cervical left internal carotid artery. Moderate to extensive atherosclerotic plaquing of the clinoid and supraclinoid internal carotid arteries are again seen as discussed on CTA had of same day. Moderate mixed plaquing of the right carotid bulb is noted with less than 50% stenosis. The vertebral arteries appear to be codominant. There is moderate plaquing of the V4 segment left vertebral artery without high-grade stenosis. The basilar artery is also patent. No high-grade stenosis, aneurysm, dissection or proximal branch occlusion. CT NECK: Imaged lung apices are clear. 8 mm low attenuating nodule of the left thyroid is seen. No pathologic adenopathy of the neck identified. No focal soft tissue abnormality. Multilevel facet arthropathy and uncovertebral spurring of the cervical spine is seen. IMPRESSION: 1. Moderate to extensive mixed plaquing involves the aortic arch and carotid bulbs as above with approximately 50% luminal narrowing on the left and 40% stenosis on the right. 2. Extensive atherosclerotic plaquing of the clinoid and supraclinoid portions of the internal carotid arteries bilaterally are also again noted, further discussed on the CTA head study of same day. 3. No high-grade stenosis, proximal branch occlusion, aneurysm or dissection identified. The above report was generated using voice recognition software. It may contain grammatical, syntax or spelling errors. Electronically signed by: Alvin Presley M.D. 08/31/2017 10:17 PM Dictated Date/Time: 08/31/2017 10:09 PM
[2017-08-31 23:10] VITALS: BP 193/75; PULSE 54; TEMP 36.5; O2SAT 97
[2017-08-31] MEDS ORDERED: LORAZEPAM 0.5 MG TAB PO STA (23:29)
[2017-08-31] MEDS ORDERED: LORAZEPAM 0.5 MG TAB ONE (23:32)
[2017-09-01] VITALS (9 sets, daily range): BP systolic 145–197; BP diastolic 62–84; PULSE 50–53; TEMP 36.3–36.7; O2SAT 94–97
[2017-09-01] MEDS ORDERED: SIMETHICONE 80 MG CHEW PO STA (00:02)
[2017-09-01] MEDS: CHECK FENTANYL PATCH PLACEMENT SCH ×3 (00:12→15:23)
[2017-09-01 06:43] LABS: HEMATOCRIT 42.7 % (37-47); MEAN CELL VOLUME 96.8 fL (80-100); MEAN CORPUSCULAR HEMOGLOBIN 30.8 pg (25-34); MEAN CORPUSCULAR HGB CONC 31.9 g/dl (32-36); PLATELET COUNT 184 K/uL (130-400); RED BLOOD COUNT 4.41 M/uL (4.2-5.4); WHITE BLOOD COUNT 5.91 K/uL (4.8-10.8)
[2017-09-01 07:24] LABS: BUN/CREATININE RATIO 20.5 (10-20); CHOLESTEROL/HDL RATIO 2.2; CREATININE 0.75 mg/dl (0.60-1.20); MAGNESIUM 2.1 mg/dl (1.8-2.4); POTASSIUM 4.6 mmol/L (3.5-5.1)
[2017-09-01] MEDS: GABAPENTIN 100 MG CAP PO SCH ×3 (07:44→19:33)
[2017-09-01] MEDS: AMIODARONE 200 MG TAB PO SCH (07:44)
[2017-09-01] MEDS: ASPIRIN 81 MG ECTAB PO SCH (07:45)
[2017-09-01] MEDS: LISINOPRIL 20 MG TAB PO SCH (07:45)
[2017-09-01] MEDS: DOCUSATE SODIUM 100 MG CAP PO SCH ×2 (07:45→19:32)
[2017-09-01] MEDS: METOPROLOL SUCC 25MG EXT REL TAB PO SCH ×2 (07:45→19:32)
[2017-09-01] MEDS: CHOLECALCIFEROL 1000 INTER.UNIT TAB PO SCH (07:45)
--- NOTE | 2017-09-01 10:57 | Neurology Consultation ---
Neurology Consultation Date of Consultation: Sep 01, 2017. Attending Physician: Jass Martinez MD Primary Care Physician: Alexei Redman M.D. Reason for Consultation: Patient is an 87-year-old, who was asked to see at the request of Dr. King little , for neurologic consultation regarding new onset near syncopal episode and other symptomatology, question transient ischemic attack History of Present Illness Source: patient, family, clinic records, hospital records Patient has a history of significant hypertension which has been uncontrolled intermittently over the last few years. In April of this year she was admitted with headache and confusion and had elevated blood pressure. She saw Dr. Montalvo who felt that the picture was consistent with hypertensive encephalopathy. This cleared after controlled blood pressure and she had no further issues over the summer. Patient has a history of carotid artery stenosis bilaterally with old small vessel ischemic disease and no significant clinical history of stroke that she can recall. Patient has been on a baby aspirin daily for years. Chest a history of atrial fibrillation event about 5-7 years ago but this has not recurred according to the patient. She has a history of SVT and pacemaker implantation in 1983. She tells me that the pacemaker does not work anymore. She states that the Cardiology told her that better to just leave it in. She has a history of lumbar spinal stenosis post surgery twice with the most recent [address] Ortega. She has had bilateral lower extremity, right greater than left weakness, pain, and numbness ever since. She needs a wheelchair to get around but has no incontinence of urine. On August 31, the patient got up at her usual time feeling well. She has slight lightheadedness when she gets from a lying to a sitting position but if she sits for a few minutes it all goes away. She did well and ate breakfast. She has been eating and drinking well recently. Around 11 o'clock in the morning she got into a hot tub bath, directed by her daughter, and based. At one point, she had the sudden onset of feeling very lightheaded. Her daughter felt that the patient was shaking her head and hand not able to maintain position in space. The patient herself felt as if she was falling to the right. She had blurry vision bilaterally and a bifrontal headache. She had nausea without vomiting. She felt that maybe her right side was weaker than her left side while in the top. She was taken out of the tub and taken to her bedroom. Symptoms faded some after she laid down but 30 minutes later it came back again. She was brought to the emergency room at 1317 hours with blood pressure 192/62, pulse 52 and regular, respiratory rate 16, temperature 36.9, and O2 saturation 97%. In the emergency room she was noted to be of normal mental status and had no focal neurologic signs, meningeal signs, or encephalopathy. CT scan of the head was unremarkable Chest x-ray showed a very small left pleural effusion. CT angiography of the head revealed some 50% stenosis bilaterally in the distal internal carotid arteries CT angiography of the neck showed some stenosis of the aortic arch and carotid bulbs with internal carotid artery stenosis of approximately 50% bilaterally. Since admission, last evening, she had an episode of confusion and dizziness, chest pressure. This morning, she feels fine close to her baseline she still has some residual dizziness. Her memory is good and she has no his dementia. She feels that currently she has no new weakness or numbness. Past Medical/Surgical History Medical Problems: (1) CVA (cerebral vascular accident) Status: Acute (2) Dizziness Status: Acute (3) Hypertension Status: Acute (4) Nausea Status: Acute (5) Near syncope Status: Acute (6) Pneumonia Status: Acute (7) Right sided abdominal pain Status: Acute (8) Weakness Status: Acute (9) Weakness generalized Status: Acute Hypertension, not adequately controlled Carotid artery stenosis bilaterally on aspirin History of hypertensive encephalopathy April 2017 History of old small vessel ischemic disease Asthma Thoracic spinal stenosis Lumbar spinal stenosis post surgery several years ago with bilateral lower extremity weakness, pain, numbness, right greater than left side. Gastroesophageal reflux disease Dyslipidemia [place] in the past History of SVT with pacemaker implantation 1983 Post cholecystectomy The left total knee replacement Total abdominal hysterectomy [place] filter placement Family History Mother in her 70s and had a history of Parkinson's disease. She does not know of any other medical illnesses or problems. Patient did not know her father very well and does not know if he had any illnesses or when/how he . Social History Patient used to smoke a rare cigarette but has not done this in decades. No history of alcohol use. 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 She retired 20 years ago Smoking Status: Former smoker Smokeless Tobacco Use: No Alcohol Use: none Drug Use: none Marital Status: single Housing Status: lives with family Occupation Status: retired Allergies Coded Allergies: Adenosine (Verified Allergy, Unknown, "pt not sure had it in er years ago ", 08/31/17) Current Inpatient Medications Current Inpatient Medications Medications (Trade) Dose Ordered Sig/Yifan Route Start Time Stop Time Status Last Admin Dose Admin Enoxaparin Sodium (Lovenox Inj) 40 mg Q24H SC 08/31/17 22:00 09/30/17 21:59 08/31/17 22:16 40 MG Acetaminophen (Tylenol Tab) 650 mg Q4H PRN PO 08/31/17 19:00 09/30/17 18:59 Al Hydrox/Mg Hydrox/Simethicone (Maalox Max Susp) 15 ml Q4H PRN PO 08/31/17 19:00 09/30/17 18:59 Magnesium Hydroxide (Milk Of Magnesia Susp) 30 ml Q12H PRN PO 08/31/17 19:00 09/30/17 18:59 Ondansetron HCl (Zofran Inj) 4 mg Q6H PRN IV 08/31/17 19:00 09/30/17 18:59 08/31/17 23:40 4 MG Miscellaneous Information (Pharmacist Discharge Med Rec Consult) 1 ea UD PRN N/A 08/31/17 19:00 09/30/17 18:59 Albuterol (Ventolin Hfa Inhaler) 2 puffs Q6H PRN INH 08/31/17 19:00 09/30/17 18:59 Amiodarone HCl (Cordarone Tab) 200 mg QAM PO 09/01/17 09:00 10/01/17 08:59 09/01/17 07:44 200 MG Aspirin (Ecotrin Tab) 81 mg QAM PO 09/01/17 09:00 10/01/17 08:59 09/01/17 07:45 81 MG Atorvastatin Calcium (Lipitor Tab) 40 mg HS PO 08/31/17 21:00 09/30/17 20:59 08/31/17 22:17 40 MG Cholecalciferol (Vitamin D Tab) 2,000 inter.unit QAM PO 09/01/17 09:00 10/01/17 08:59 09/01/17 07:45 2,000 INTER.UNIT Docusate Sodium (coLACE CAP) 100 mg BID PO 08/31/17 21:00 09/30/17 20:59 09/01/17 07:45 100 MG Gabapentin (Neurontin Cap) 200 mg TID PO 08/31/17 21:00 09/30/17 20:59 09/01/17 07:44 200 MG Lisinopril (Zestril Tab) 20 mg QAM PO 09/01/17 09:00 10/01/17 08:59 09/01/17 07:45 20 MG Metoprolol Succinate (Toprol Xl Tab) 25 mg BID PO 08/31/17 21:00 09/30/17 20:59 09/01/17 07:45 25 MG Polyethylene (Miralax Powder Packet) 17 gm Q2D@0900 PO 09/02/17 09:00 10/02/17 08:59 Ioversol (Optiray 320) 111 ml UD PRN IV 08/31/17 19:30 09/04/17 19:29 Miscellaneous (Iv Fluids Completed) 1 ea PRN PRN N/A 08/31/17 19:30 08/31/18 19:29 Miscellaneous Information (Check Fentanyl Patch Placement) 1 ea QS N/A 09/01/17 00:00 10/01/17 00:00 09/01/17 07:49 1 EA Miscellaneous (Fentanyl Patch Remove & Waste) 1 ea Q3D@0859 N/A 08/31/17 20:59 09/30/17 20:58 Fentanyl (Duragesic Patch) 25 mcg Q3D@0900 TD 08/31/17 21:00 09/14/17 20:59 08/31/17 22:15 25 MCG Review of Systems Constitutional: + weakness, + fatigue Eyes: No worsening of vision, No diplopia ENT: No hearing loss, No tinnitus Respiratory: No cough, No shortness of breath Cardiovascular: No chest pain, No palpitations Abdomen: No pain, No nausea Musculoskeletal: + joint pain Genitourinary - Female: No dysuria, No urinary incontinence Neurologic: + weakness, + numbness/tingling, + vertigo, + balance problems, No memory loss Psychiatric: No depression symptoms, No anxiety Endocrine: + fatigue Hematologic / Lymphatic: + abnormal bleeding/bruising Integumentary: No rash Allergic / Immunologic: No hives Physical Exam Vital Signs (Past 24 Hrs): Date Time Temp Pulse Resp B/P (MAP) Pulse Ox O2 Delivery O2 Flow Rate FiO2 09/01/17 08:00 97 Room Air 09/01/17 07:34 36.7 52 20 197/75 (115) 97 Room Air 09/01/17 04:00 Room Air 09/01/17 03:25 36.4 53 16 145/65 (91) 96 Room Air 09/01/17 00:02 172/65 (100) 09/01/17 00:01 Room Air 08/31/17 23:10 36.5 54 16 193/75 (114) 97 Room Air 08/31/17 20:43 36.7 52 18 194/62 93 Room Air 08/31/17 20:05 36.9 58 16 206/60 98 08/31/17 19:01 58 16 206/60 98 Room Air 08/31/17 17:14 52 08/31/17 14:34 50 20 176/57 96 Room Air 08/31/17 13:41 46 08/31/17 13:17 96 Room Air 08/31/17 13:17 36.9 52 16 192/62 97 Room Air Patient is right-handed. The patient is awake and alert. Speech is normal without aphasia or dysarthria. Mentation and thought processes seem intact with orientation and normal fund of knowledge. Mood and affect are normal and appropriate. Appearance and grooming are normal. The discs are sharp with positive venous pulsations. There are no exudates, hemorrhages, or blood vessel changes seen. Pupils are 4mm bilaterally and reactive to light. Extraocular eye muscles are intact without nystagmus. Visual acuity and visual cerna seem normal grossly to confrontation. There are no deficits to sensation of the face bilaterally. Corneal reflexes are positive bilaterally. Facial strength and symmetry is normal bilaterally. Hearing seems mildly decreased bilaterally. Palate moves well without asymmetry. There is normal sternocleidomastoid and trapezius strength bilaterally. Tongue is midline with good strength bilaterally. Neck is with full range of motion without discomfort. There are no cervical bruits. There are no cranial or ocular bruits. Heart is without murmur. Cervical, thoracic, and lumbar spine are nontender to palpation. Gait is not tested under stance sitting up in bed with feet dangling is very poor and she feels like she swing and falling to the left. With outstretched arms there is no drift. There are no resting, postural, or action tremors. There is no ataxia with [id number] testing. There is good facility in the hands. There are no abnormal involuntary movements noted. Motor strength is 5/5 for age diffusely in the arms bilaterally including deltoids, biceps, brachioradialis, wrist flexors and extensors, getter welder, and intrinsic hand muscles. Motor strength is 4+/5 diffusely in the left lower extremity including hip flexors, quadriceps, hamstring, gastrocnemius, tibialis anterior, tibialis posterior, and peroneii muscles. Right lower extremity has 4 /5 strength proximally and 1-2/5 strength distally. The limbs have good tone without rigidity or spasticity, and there is no atrophy noted. Muscle bulk is normal, there is no tenderness, no myotonia noted to percussion, and no fasciculations seen. Sensory examination is intact to pin and touch throughout all four limbs. Reflexes are 2/4 in the biceps, triceps, and brachioradialis tendons bilaterally. The the left quadriceps tendon reflex is absent on the right is 1/ 4. The right Achilles tendon reflex is absent and the left is trace to 1/4 Toes are downgoing with plantar stimulation bilaterally. Peripheral pulses are present and of normal quality distally in all four limbs. There is no peripheral edema noted. Laboratory Results Past 24 Hours: 09/01/17 06:31 09/01/17 06:31 Test 08/31/17 14:40 08/31/17 18:01 09/01/17 06:31 Immature Granulocyte % (Auto) 0.1 % White Blood Count 6.72 K/uL (4.8-10.8) Red Blood Count 4.75 M/uL (4.2-5.4) 4.41 M/uL (4.2-5.4) Hemoglobin 14.8 g/dL (12.0-16.0) Hematocrit 46.4 % (37-47) Mean Corpuscular Volume 97.7 fL (80-100) 96.8 fL (80-100) Mean Corpuscular Hemoglobin 31.2 pg (25-34) 30.8 pg (25-34) Mean Corpuscular Hemoglobin Concent 31.9 g/dl (32-36) 31.9 g/dl (32-36) Platelet Count 208 K/uL (130-400) Mean Platelet Volume 10.0 fL (7.4-10.4) 10.0 fL (7.4-10.4) Neutrophils (%) (Auto) 71.4 % Lymphocytes (%) (Auto) 20.4 % Monocytes (%) (Auto) 6.1 % Eosinophils (%) (Auto) 1.9 % Basophils (%) (Auto) 0.1 % Neutrophils # (Auto) 4.79 K/uL (1.4-6.5) Lymphocytes # (Auto) 1.37 K/uL (1.2-3.4) Monocytes # (Auto) 0.41 K/uL (0.11-0.59) Eosinophils # (Auto) 0.13 K/uL (0-0.5) Basophils # (Auto) 0.01 K/uL (0-0.2) Immature Granulocyte # (Auto) 0.01 K/uL (0.00-0.02) Prothrombin Time 10.8 SECONDS (9.0-12.0) Prothromb Time International Ratio 1.0 (0.9-1.1) Activated Partial Thromboplast Time 25.9 SECONDS (21.0-31.0) Partial Thromboplastin Ratio 1.0 Estimated Average Glucose 111 mg/dl Hemoglobin A1c 5.5 % (4.5-5.6) Total Bilirubin 0.5 mg/dl (0.2-1) Direct Bilirubin 0.1 mg/dl (0-0.2) Aspartate Amino Transf (AST/SGOT) 22 U/L (15-37) Alanine Aminotransferase (ALT/SGPT) 24 U/L (12-78) Alkaline Phosphatase 92 U/L (45-117) Total Creatine Kinase 93 U/L (26-192) Creatine Kinase MB 2.2 ng/ml (0.5-3.6) Creatine Kinase MB Ratio 2.4 (0-3.0) Troponin I < 0.015 ng/ml (0-0.045) Total Protein 6.9 gm/dl (6.4-8.2) Albumin 3.3 gm/dl (3.4-5.0) Lipase 107 U/L (73-393) Bedside Troponin I < 0.030 ng/ml (0-0.045) RDW Standard Deviation 49.8 fL (36.4-46.3) RDW Coefficient of Variation 14.0 % (11.5-14.5) Anion Gap 5.0 mmol/L (3-11) Est Creatinine Clear Calc Drug Dose 47.3 ml/min Estimated GFR () 84.2 Estimated GFR (Non- 72.7 BUN/Creatinine Ratio 20.5 (10-20) Calcium Level 9.0 mg/dl (8.5-10.1) Magnesium Level 2.1 mg/dl (1.8-2.4) Triglycerides Level 65 mg/dl (0-150) Cholesterol Level 168 mg/dl (0-200) HDL Cholesterol 77 mg/dl LDL Cholesterol, Calculated 78 mg/dl VLDL Cholesterol, Calculated 13 mg/dl Cholesterol/HDL Ratio 2.2 Chemistry Specimen Hemolysis Impression 1. Acute onset of dizziness which has components of both lightheadedness and vertiginous symptomatology. There could be an inner ear origin plus orthostasis resulting in her symptomatology. She did have transient right-sided weakness, not present currently, and neck cannot entirely exclude TIA. There is no evidence on exam for actual stroke. The right greater than left lower extremity weakness is likely old and secondary to low back issues 2. Bilateral carotid stenosis on 81 mg aspirin daily. 3. Hypertension, not adequately controlled. The these last 2 problems with put her at risk for TIA and stroke. 4. Remote history of atrial fibrillation in the past. 5. History of SVT post pacemaker implantation 1983 with concern that the pacemaker does not work anymore. 6. Plan 1. Check for orthostasis with blood pressure and pulse lying, sitting, and standing. 2. Consider meclizine 25 mg 2 or 3 times a day as needed for dizziness. 3. Increase activity slowly and consider physical therapy consultation 4. Since we cannot entirely exclude a TIA and she does have significant carotid stenosis consider replacing the 81 mg aspirin tablet to clopidogrel 75 mg daily. Since we cannot get an MRI, I have no further specific neurologic testing or treatment to offer at this time. I have spoken to Dr. Martinez regarding this case including differential diagnosis and treatment options.
[2017-09-01] MEDS ORDERED: MECLIZINE HCL 25 MG TAB PO STA (11:01)
[2017-09-01] MEDS ORDERED: PANTOprazole SOD 40 MG TAB PO ONE (11:45)
[2017-09-01] MEDS ORDERED: ALUMINUM/MAGNESIUM/SIMETH (MAALOX MAX) 30 ML UDC PO PRN (12:15)
--- NOTE | 2017-09-01 12:16 | Hospitalist Progress Note ---
Hospitalist Progress Note Date of Service Sep 01, 2017. (Daniella Miller PA-C) Subjective Pt evaluation today including: conversation w/ patient, physical exam, chart review, lab review, review of studies Pain: None PO Intake: Good Voiding: no voiding problems The patient was seen and examined this morning. Pt reports feeling slightly better today, but still has complaints of dizziness where the room is spinning. She denies diplopia, tunnel vision, blurred vision. She denies episodes of chest pain, chest tightness, shortness of breath or pain overnight. She mentions having chronic indigestion, but doesn't take any medication for this at home. Another main complaints is inability to clear her throat at times. Constitutional: No fever, No chills, No sweats Eyes: + see HPI ENT: + see HPI Respiratory: No cough, No shortness of breath, No dyspnea on exertion Cardiovascular: + see HPI Abdomen: + nausea (occasionally), + problem reported (indigestion), No pain , No vomiting, No diarrhea, No constipation Musculoskeletal: No see HPI, No muscle pain, No swelling Neurologic: + weakness (RLE weaker than LLE at baseline) Endo: No fatigue Skin: No rash, No itch (Daniella Miller PA-C) Objective Vital Signs Date Time Temp Pulse Resp B/P (MAP) Pulse Ox O2 Delivery O2 Flow Rate FiO2 09/01/17 08:00 97 Room Air 09/01/17 07:34 36.7 52 20 197/75 (115) 97 Room Air 09/01/17 04:00 Room Air 09/01/17 03:25 36.4 53 16 145/65 (91) 96 Room Air 09/01/17 00:02 172/65 (100) 09/01/17 00:01 Room Air 08/31/17 23:10 36.5 54 16 193/75 (114) 97 Room Air 08/31/17 20:43 36.7 52 18 194/62 93 Room Air 08/31/17 20:05 36.9 58 16 206/60 98 08/31/17 19:01 58 16 206/60 98 Room Air 08/31/17 17:14 52 08/31/17 14:34 50 20 176/57 96 Room Air 08/31/17 13:41 46 08/31/17 13:17 96 Room Air 08/31/17 13:17 36.9 52 16 192/62 97 Room Air (Daniella Miller PA-C) Physical Exam General Appearance: WD/WN, no apparent distress Eyes: PERRL, EOMI ENT: hearing grossly normal, pharynx normal, + pertinent finding (MMM) Neck: supple, no JVD Respiratory/Chest: normal breath sounds, no respiratory distress, no accessory muscle use, + pertinent finding (on room air) Cardiovascular: no JVD, no murmur, + bradycardia (with few extra beats) Abdomen: normal bowel sounds, non tender, soft, no organomegaly Extremities: non-tender, no calf tenderness, + pedal edema (1+ nonpitting edema BLE.), + pertinent finding (Strength intact in BUE and rated 4/5. + weakness of BLE. LLE 2/5, and RLE 3/4. + sensation to light touch. ) Neurologic/Psychiatric: alert, normal mood/affect, oriented x 3 Skin: normal color, warm/dry (Daniella Miller PA-C) Laboratory Results Last 24 Hours Test 08/31/17 14:40 08/31/17 18:01 09/01/17 06:31 White Blood Count 6.72 K/uL 5.91 K/uL Red Blood Count 4.75 M/uL 4.41 M/uL Hemoglobin 14.8 g/dL 13.6 g/dL Hematocrit 46.4 % 42.7 % Mean Corpuscular Volume 97.7 fL 96.8 fL Mean Corpuscular Hemoglobin 31.2 pg 30.8 pg Mean Corpuscular Hemoglobin Concent 31.9 g/dl 31.9 g/dl Platelet Count 208 K/uL 184 K/uL Mean Platelet Volume 10.0 fL 10.0 fL Neutrophils (%) (Auto) 71.4 % Lymphocytes (%) (Auto) 20.4 % Monocytes (%) (Auto) 6.1 % Eosinophils (%) (Auto) 1.9 % Basophils (%) (Auto) 0.1 % Neutrophils # (Auto) 4.79 K/uL Lymphocytes # (Auto) 1.37 K/uL Monocytes # (Auto) 0.41 K/uL Eosinophils # (Auto) 0.13 K/uL Basophils # (Auto) 0.01 K/uL RDW Standard Deviation 49.6 fL 49.8 fL RDW Coefficient of Variation 13.8 % 14.0 % Immature Granulocyte % (Auto) 0.1 % Immature Granulocyte # (Auto) 0.01 K/uL Prothrombin Time 10.8 SECONDS Prothromb Time International Ratio 1.0 Activated Partial Thromboplast Time 25.9 SECONDS Partial Thromboplastin Ratio 1.0 Sodium Level 143 mmol/L 142 mmol/L Potassium Level 4.2 mmol/L 4.6 mmol/L Chloride Level 107 mmol/L 107 mmol/L Carbon Dioxide Level 29 mmol/L 30 mmol/L Anion Gap 7.0 mmol/L 5.0 mmol/L Blood Urea Nitrogen 17 mg/dl 15 mg/dl Creatinine 0.76 mg/dl 0.75 mg/dl Est Creatinine Clear Calc Drug Dose 46.1 ml/min 47.3 ml/min Estimated GFR () 82.9 84.2 Estimated GFR (Non- 71.5 72.7 BUN/Creatinine Ratio 22.8 20.5 Random Glucose 94 mg/dl 77 mg/dl Estimated Average Glucose 111 mg/dl Hemoglobin A1c 5.5 % Calcium Level 8.7 mg/dl 9.0 mg/dl Magnesium Level 2.2 mg/dl 2.1 mg/dl Total Bilirubin 0.5 mg/dl Direct Bilirubin 0.1 mg/dl Aspartate Amino Transf (AST/SGOT) 22 U/L Alanine Aminotransferase (ALT/SGPT) 24 U/L Alkaline Phosphatase 92 U/L Total Creatine Kinase 93 U/L Creatine Kinase MB 2.2 ng/ml Creatine Kinase MB Ratio 2.4 Troponin I < 0.015 ng/ml Total Protein 6.9 gm/dl Albumin 3.3 gm/dl Lipase 107 U/L Bedside Troponin I < 0.030 ng/ml Triglycerides Level 65 mg/dl Cholesterol Level 168 mg/dl HDL Cholesterol 77 mg/dl LDL Cholesterol, Calculated 78 mg/dl VLDL Cholesterol, Calculated 13 mg/dl Cholesterol/HDL Ratio 2.2 Chemistry Specimen Hemolysis (Daniella Miller PA-C) Assessment and Plan 87 y/o female with a history of HTN, HLD, CVA, CAD, h/o [place] s/p stent to LAD in 2006, paroxysmal a-fib, h/o SVT s/p pacemaker, AAA, chronic pain, polyneuropathy , asthma, and GERD who presented to the ED on 08/31 with near syncope. Pt bradycardic, hypertensive on arrival. Near syncope, possible TIA. H/o carotid artery stenosis Episode of dizziness while in bathtub - Symptoms are largely resolved - ? if this is due to BPPV - Neuro evaluated and recommended starting meclizine 25 mg 2-3x daily, will start this today. - CTA head/neck showing moderate to extensive atherosclerotic plaquing of the clinoid and supraclinoid internal carotid arteries, with ~50% luminal narrowing bilaterally. But No high-grade stenosis, proximal branch occlusion, aneurysm or dissection. - CT head neg - Pacemaker was placed in 1983 and is not active, it has not been removed for unknown reason- unable to complete MRI. - Echo ordered - awaiting results - ASA 81 mg daily with hx of CAD - PT/OT Hypertensive emergency-BP elevated at time of admission to 206/60, w/headache and blurry vision - BP remains elevated in 170s-190s systolic however bradycardi with multiple PACs overnight. - Resume Toprol XL 25 mg PO BID and lisinopril 20 mg PO qd for BP control. GERD - Start protonix 40 mg QAM - indigestion may be playing role in throat clearing/ burping/burning sensation, maalox prn HLD - Continue Lipitor 40 mg PO qd Paroxysmal a-fib, h/o SVT--pacemaker in place - Continue amiodarone 200 mg PO qd AAA - Infrarenal AAA 3.9 cm on last abdomen/pelvis CT 05/08/17 Chronic pain - Continue fentanyl 25 mcg TD q72h. Due for new patch today Polyneuropathy - Continue gabapentin 200 mg PO TID Asthma - Continue albuterol inhaler prn SOB/wheezing Code Status: FULL Disposition: From home, lives with daughter, discharge likely within 1 day. (Daniella Miller PA-C) Attending Attestation: Pt seen/examined, chart reviewed, care plan d/w RIAN Miller. I agree w/ the nagy components of her documentation. During my visit she denied any lightheadedness/dizziness. Orthostatics were negative. Has very mild vertigo with movement. Her main complaint is that of epigastric discomfort, frequent burping/belching, and frequent throat clearing often following meals. EMR states she has h/o GERD. VSS except BPs high gen - nad throat - clear, no lesions heart - RRR, s1, s2 lungs - CTA b/l abd - soft, minimal tenderness high epigastric area ext - no edema neuro - no dysmetria with finger/nose/finger maneuver A/P: 1. suspected vertigo, likely peripheral from inner ear - meclizine prn 2. uncontrolled HTN - add nifedipine xr 30mg daily in addition to RAF & BB 3. suspected GERD - add PPI daily await PT, OT evals appreciate neuro consult; I spoke directly with Dr. Vargas re: her care Jass Martinez MD (Jass Martinez MD)
--- NOTE | 2017-09-01 13:36 | ECHOCARDIOGRAM REPORT ---
*NOTICE TO RECEIVING CONSTITUTION PARTY AGENCY This information is strictly Confidential and protected under [place] law. [place] law prohibits you from making any further disclosure of this information unless further disclosure is expressly permitted by the written consent of the person to whom it pertains or is authorized by law. A general authorization for the release of medical or other information is not sufficient for this purpose. Hospital accepts no responsibility if the information is made available to any other person, INCLUDING THE PATIENT. Interpretation Summary * Name: SANDOR FERGUSON Study Date: 09/01/2017 08:35 AM BP: 197/75 mmHg * Patient Location: C.2T\S\S238\S\2 HR: 52 * : 1930 (M/d/yyyy) Gender: Female Height: 61 in * Age: 87 yrs Ethnicity: [place] Weight: 139 lb * Ordering Physician: Lena Bone * Referring Physician: Self, Referred * Performed By: Rosa Isela Hanna RCS * * Reason For Study: Syncope * BSA: 1.6 m2 * -- Conclusions -- * 1. Normal left ventricular size and systolic function. EF 65-70%. No regional wall motion abnormalities. No left ventricular hypertrophy. Type 1 diastolic dysfunction. * 2. The left atrium is mildly dilated. * 3. Aortic valve sclerosis mild, without significant aortic valvular stenosis. Trace aortic regurgitation. * 4. There is severe mitral annular calcification. * 5. Mildly elevated right ventricular systolic pressure; estimated RVSP 42 mmHg. * 6. Compared to prior study on 02/18/2014, tricuspid regurgitation now appears mild (moderate in the past). Procedure Details * A complete two-dimensional transthoracic echocardiogram was performed (2D, M-mode, Doppler and color flow Doppler). Left Ventricle * Normal left ventricular size and systolic function. EF 65-70%. No regional wall motion abnormalities. No left ventricular hypertrophy. Type 1 diastolic dysfunction. Right Ventricle * The right ventricle is normal in size and function. * The right ventricular systolic function is normal as assessed by tricuspid annular plane systolic excursion (TAPSE) (normal >1.5 cm). Atria * The left atrium is mildly dilated. * Pacemaker lead noted within the right atrium. * Right atrial size is normal. * There is no evidence of atrial septal defect, but resolution does not allow assessment for a patent foramen ovale. Mitral Valve * There is severe mitral annular calcification. * There is no mitral valve stenosis. * Significant mitral regurgitation is absent. * There is trace mitral regurgitation. Tricuspid Valve * The tricuspid valve is not well visualized, but is grossly normal. * There is no tricuspid stenosis. * There is mild tricuspid regurgitation. Aortic Valve * The aortic valve is trileaflet. * Aortic valve sclerosis mild, without significant aortic valvular stenosis. * No hemodynamically significant valvular aortic stenosis. * Trace aortic regurgitation. Pulmonic Valve * The pulmonary valve is inadequately visualized, but the Doppler data is adequate for interpretation. * There is no pulmonic valvular stenosis. * Mild pulmonic valvular regurgitation. Great Vessels * The aortic root is normal size. Pericardium/Pleural * There is no pericardial effusion. Great Vessels * Normal inferior vena cava size and collapsability with sniff indicates a normal right atrial pressure of 3 mmHg MMode 2D Measurements and Calculations IVSd 1.0 cm IVSs 1.1 cm LVIDd 4.3 cm LVIDs 2.4 cm LVPWd 1.1 cm LVPWs 1.5 cm IVS/LVPW 0.96 FS 45.2 % EDV(Teich) 85.3 ml ESV(Teich) 19.8 ml EF(Teich) 76.8 % EDV(cubed) 82.2 ml ESV(cubed) 13.5 ml EF(cubed) 83.6 % % IVS thick 14.0 % % LVPW thick 46.8 % LV mass(C)d 151.1 grams LV mass(C)dI 93.4 grams/m\S\2 LV mass(C)s 98.1 grams LV mass(C)sI 60.6 grams/m\S\2 SV(Teich) 65.5 ml SI(Teich) 40.5 ml/m\S\2 SV(cubed) 68.7 ml SI(cubed) 42.4 ml/m\S\2 Ao root diam 3.2 cm Ao root area 8.2 cm\S\2 ACS 1.6 cm LA dimension 3.0 cm asc Aorta Diam 3.2 cm LA/Ao 0.94 Doppler Measurements and Calculations MV E max jenn 99.7 cm/sec MV A max jenn 107.0 cm/sec MV E/A 0.93 MV P1/2t max jenn 98.8 cm/sec MV P1/2t 84.2 msec MVA(P1/2t) 2.6 cm\S\2 MV dec slope 343.7 cm/sec\S\2 MV dec time 0.22 sec Ao V2 max 130.1 cm/sec Ao max PG 6.8 mmHg Ao max PG (full) 2.5 mmHg AI max jenn 393.9 cm/sec AI max PG 62.0 mmHg AI dec slope 196.7 cm/sec\S\2 AI P1/2t 586.5 msec LV V1 max PG 4.3 mmHg LV V1 max 103.5 cm/sec TV E max jenn 44.2 cm/sec PA V2 max 67.4 cm/sec PA max PG 1.8 mmHg PI max jenn 153.6 cm/sec PI max PG 9.5 mmHg PI dec slope 89.2 cm/sec\S\2 PI P1/2t 504.4 msec TR max jenn 311.5 cm/sec RVSP(TR) 41.8 mmHg RAP systole 3.0 mmHg
[2017-09-01] MEDS ORDERED: NIFEdipine 10 MG CAP PO SCH (16:00)
[2017-09-01] MEDS ORDERED: MECLIZINE HCL 12.5 MG TAB PO PRN (17:00)
[2017-09-01] MEDS ORDERED: NIFEdipine 30 MG CR TAB PO STA (18:43)
[2017-09-01] MEDS: ATORVASTATIN 40 MG TAB PO SCH (19:32)
[2017-09-01] MEDS: ENOXAPARIN 40 MG/0.4 ML SYR SC SCH (21:03)
[2017-09-02] VITALS (8 sets, daily range): BP systolic 101–162; BP diastolic 50–65; PULSE 44–58; TEMP 36.3–36.9; O2SAT 93–97
[2017-09-02 07:44] LABS: HEMATOCRIT 42.2 % (37-47); MEAN CELL VOLUME 97.7 fL (80-100); MEAN CORPUSCULAR HEMOGLOBIN 31.9 pg (25-34); MEAN CORPUSCULAR HGB CONC 32.7 g/dl (32-36); MEAN PLATELET VOLUME 9.9 fL (7.4-10.4); PLATELET COUNT 182 K/uL (130-400); RED BLOOD COUNT 4.32 M/uL (4.2-5.4); WHITE BLOOD COUNT 5.25 K/uL (4.8-10.8)
[2017-09-02] MEDS: GABAPENTIN 100 MG CAP PO SCH ×3 (07:59→21:17)
[2017-09-02] MEDS: LISINOPRIL 20 MG TAB PO SCH (08:00)
[2017-09-02] MEDS: POLYETHYLENE (MIRALAX) 17 GM PACK PO SCH (08:00)
[2017-09-02] MEDS: METOPROLOL SUCC 25MG EXT REL TAB PO SCH (08:00)
[2017-09-02] MEDS: DOCUSATE SODIUM 100 MG CAP PO SCH ×2 (08:00→21:17)
[2017-09-02] MEDS: PANTOprazole SOD 40 MG TAB PO SCH (08:00)
[2017-09-02] MEDS: CHECK FENTANYL PATCH PLACEMENT SCH ×3 (08:00→16:00)
[2017-09-02] MEDS: ASPIRIN 81 MG ECTAB PO SCH (08:01)
[2017-09-02] MEDS: CHOLECALCIFEROL 1000 INTER.UNIT TAB PO SCH (08:01)
[2017-09-02] MEDS: AMIODARONE 200 MG TAB PO SCH (08:01)
[2017-09-02] MEDS: NIFEdipine 30 MG CR TAB PO SCH (08:02)
--- NOTE | 2017-09-02 08:09 | Neurology Progress Notes ---
Neurology Progress Note Date of Service Sep 02, 2017. Subjective Patient feels better this morning. She is not dizzy or lightheaded this morning sitting up in bed eating breakfast. She was able to sit up out of bed and the chair yesterday afternoon and was limited more with her back and hip than dizziness. Echocardiogram showed no significant issues and was largely unremarkable however there was less try tested regurgitation than a previous study. Blood pressure and pulse yesterday did not change significantly between lying and sitting. She was not actually stood up to check her pressure and pulse. Objective Date Time Temp Pulse Resp B/P (MAP) Pulse Ox O2 Delivery O2 Flow Rate FiO2 09/02/17 04:00 96 Room Air 09/02/17 04:00 36.5 113/50 (71) 96 Room Air 09/02/17 00:00 93 Room Air 09/02/17 00:00 36.9 51 132/60 (84) 93 Room Air 09/01/17 20:00 96 Room Air 09/01/17 19:45 36.3 50 18 154/63 (93) 95 Room Air 09/01/17 16:00 95 Room Air 09/01/17 15:37 36.4 50 18 170/62 (98) 95 Room Air 09/01/17 12:00 97 Room Air 09/01/17 12:00 36.6 52 18 161/84 (109) 94 Room Air 09/01/17 08:00 97 Room Air Last 24 Hours Test 09/02/17 07:23 White Blood Count 5.25 K/uL Red Blood Count 4.32 M/uL Hemoglobin 13.8 g/dL Hematocrit 42.2 % Mean Corpuscular Volume 97.7 fL Mean Corpuscular Hemoglobin 31.9 pg Mean Corpuscular Hemoglobin Concent 32.7 g/dl RDW Standard Deviation 50.7 fL RDW Coefficient of Variation 14.1 % Platelet Count 182 K/uL Mean Platelet Volume 9.9 fL Exam: She is awake and alert. Speech is normal without aphasia or dysarthria. Thought process he seem intact. Mood is pleasant and cooperative. Extraocular muscles are intact without nystagmus. She does not have any dizziness sitting up and feels comfortable with a good stance. There are no abnormal involuntary movements noted. Motor strength is normal and symmetrical in the arms. She is weak in the legs right greater than left side as before. Current Inpatient Medications Medications (Trade) Dose Ordered Sig/Yifan Route Start Time Stop Time Status Last Admin Dose Admin Enoxaparin Sodium (Lovenox Inj) 40 mg Q24H SC 08/31/17 22:00 09/30/17 21:59 09/01/17 21:03 40 MG Acetaminophen (Tylenol Tab) 650 mg Q4H PRN PO 08/31/17 19:00 09/30/17 18:59 Magnesium Hydroxide (Milk Of Magnesia Susp) 30 ml Q12H PRN PO 08/31/17 19:00 09/30/17 18:59 Ondansetron HCl (Zofran Inj) 4 mg Q6H PRN IV 08/31/17 19:00 09/30/17 18:59 08/31/17 23:40 4 MG Miscellaneous Information (Pharmacist Discharge Med Rec Consult) 1 ea UD PRN N/A 08/31/17 19:00 09/30/17 18:59 Albuterol (Ventolin Hfa Inhaler) 2 puffs Q6H PRN INH 08/31/17 19:00 09/30/17 18:59 Amiodarone HCl (Cordarone Tab) 200 mg QAM PO 09/01/17 09:00 10/01/17 08:59 09/01/17 07:44 200 MG Aspirin (Ecotrin Tab) 81 mg QAM PO 09/01/17 09:00 10/01/17 08:59 09/01/17 07:45 81 MG Atorvastatin Calcium (Lipitor Tab) 40 mg HS PO 08/31/17 21:00 09/30/17 20:59 09/01/17 19:32 40 MG Cholecalciferol (Vitamin D Tab) 2,000 inter.unit QAM PO 09/01/17 09:00 10/01/17 08:59 09/01/17 07:45 2,000 INTER.UNIT Docusate Sodium (coLACE CAP) 100 mg BID PO 08/31/17 21:00 09/30/17 20:59 09/01/17 19:32 100 MG Gabapentin (Neurontin Cap) 200 mg TID PO 08/31/17 21:00 09/30/17 20:59 09/01/17 19:33 200 MG Lisinopril (Zestril Tab) 20 mg QAM PO 09/01/17 09:00 10/01/17 08:59 09/01/17 07:45 20 MG Metoprolol Succinate (Toprol Xl Tab) 25 mg BID PO 08/31/17 21:00 09/30/17 20:59 09/01/17 19:32 25 MG Polyethylene (Miralax Powder Packet) 17 gm Q2D@0900 PO 09/02/17 09:00 10/02/17 08:59 Ioversol (Optiray 320) 111 ml UD PRN IV 08/31/17 19:30 09/04/17 19:29 Miscellaneous (Iv Fluids Completed) 1 ea PRN PRN N/A 08/31/17 19:30 08/31/18 19:29 Miscellaneous Information (Check Fentanyl Patch Placement) 1 ea QS N/A 09/01/17 00:00 10/01/17 00:00 09/02/17 00:00 1 EA Miscellaneous (Fentanyl Patch Remove & Waste) 1 ea Q3D@0859 N/A 08/31/17 20:59 09/30/17 20:58 Fentanyl (Duragesic Patch) 25 mcg Q3D@0900 TD 08/31/17 21:00 09/14/17 20:59 08/31/17 22:15 25 MCG Meclizine HCl (Antivert Tab) 12.5 mg Q6H PRN PO 09/01/17 17:00 10/01/17 16:59 Pantoprazole Sodium (Protonix Tab) 40 mg QAM PO 09/02/17 09:00 10/02/17 08:59 Al Hydrox/Mg Hydrox/Simethicone (Maalox Max Susp) 15 ml Q6H PRN PO 09/01/17 12:15 10/01/17 12:14 Nifedipine (Procardia Xl Tab) 30 mg DAILY PO 09/02/17 09:00 10/02/17 08:59 Impression 1. Acute onset of dizziness 08-31-17, which had components of both lightheadedness and vertiginous symptomatology. She is much improved today compared to yesterday. Although I could not entirely exclude a TIA, particularly since the patient had some transient unilateral weakness, this may be more consistent with an acute inner ear dysfunction. There may have been some orthostasis or other blood pressures shift component to this problem although she did not grossly have orthostasis yesterday from lying to a sitting position. The right greater than left lower extremity weakness is old and secondary to low back issues 2. Bilateral carotid stenosis, on 81 mg aspirin daily. 3. Hypertension, better controlled over the last 24 hours. The these last 2 problems with put her at risk for TIA and stroke. 4. Remote history of atrial fibrillation in the past. 5. History of SVT post pacemaker implantation 1983 with concern that the pacemaker does not work anymore. 6. History of lumbar spinal stenosis surgery with the chronic low back and lower extremity pain with weakness right greater than left leg and dysesthesias in the legs of a chronic nature. This is largely unchanged. Plan 1. Continue meclizine as needed for the next several days. 2. Increase activity slowly and consider physical therapy consultation Patient may benefit from an inpatient rehabilitation hospital stay 3. Since we cannot entirely exclude a TIA, and she does have significant carotid stenosis, consider replacing the 81 mg aspirin tablet to clopidogrel 75 mg daily. 4. We have not been able to get an MRI because of a cardiac pacemaker placed. I have been told this pacemaker does not work and perhaps he can be removed in future. If it is not working, can we get an MRI anyway? Cardiology would have to answer this question. Otherwise, I have no further neurologic testing or treatment recommendations. Please contact me if I can be of further assistance on this case.
[2017-09-02 08:16] LABS: BUN/CREATININE RATIO 20.6 (10-20); CALCIUM 8.7 mg/dl (8.5-10.1); CREATININE 0.96 mg/dl (0.60-1.20); MAGNESIUM 2.2 mg/dl (1.8-2.4)
[2017-09-02] MEDS ORDERED: FENTANYL PATCH REMOVE & WASTE SCH (08:59)
[2017-09-02] MEDS ORDERED: FENTANYL 25 MCG/HR TDSY TD SCH (09:00)
--- NOTE | 2017-09-02 16:16 | Progress Note ---
Subjective Date of Service: Sep 02, 2017. Subjective this pt states her symptoms recur with standing but improved from admission, she has no example of other symptoms associated with stroke Problem List Medical Problems: (1) CVA (cerebral vascular accident) Status: Acute (2) Dizziness Status: Acute (3) Hypertension Status: Acute (4) Nausea Status: Acute (5) Near syncope Status: Acute (6) Pneumonia Status: Acute (7) Right sided abdominal pain Status: Acute (8) Weakness Status: Acute (9) Weakness generalized Status: Acute Review of Systems Constitutional: No fever, No chills, No weakness Respiratory: No cough, No sputum, No wheezing Cardiac: No chest pain, No orthopnea, No PND Abdomen: No pain, No nausea, No vomiting, No diarrhea Musculoskeletal: No joint pain, No muscle pain Neurologic: + weakness, + vertigo, + balance problems, No memory loss Objective Vital Signs Date Time Temp Pulse Resp B/P (MAP) Pulse Ox O2 Delivery O2 Flow Rate FiO2 09/02/17 04:00 96 Room Air 09/02/17 04:00 36.5 113/50 (71) 96 Room Air 09/02/17 00:00 93 Room Air 09/02/17 00:00 36.9 51 132/60 (84) 93 Room Air 09/01/17 20:00 96 Room Air 09/01/17 19:45 36.3 50 18 154/63 (93) 95 Room Air 09/01/17 16:00 95 Room Air 09/01/17 15:37 36.4 50 18 170/62 (98) 95 Room Air 09/01/17 12:00 97 Room Air 09/01/17 12:00 36.6 52 18 161/84 (109) 94 Room Air 09/01/17 08:00 97 Room Air 09/01/17 07:34 36.7 52 20 197/75 (115) 97 Room Air Physical Exam General Appearance: WD/WN, + mild distress Eyes: PERRL, + pertinent finding (leftward gaze nystagmus) ENT: hearing grossly normal, pharynx normal Neck: supple, no JVD Respiratory/Chest: chest non-tender, lungs clear, normal breath sounds Cardiovascular: regular rate, rhythm, no murmur Abdomen: normal bowel sounds, non tender, soft Extremities: no pedal edema, no calf tenderness Neurologic/Psychiatric: alert, oriented x 3 Laboratory Results Last 24 Hours Test 09/01/17 06:31 09/02/17 04:44 White Blood Count 5.91 K/uL Red Blood Count 4.41 M/uL Hemoglobin 13.6 g/dL Hematocrit 42.7 % Mean Corpuscular Volume 96.8 fL Mean Corpuscular Hemoglobin 30.8 pg Mean Corpuscular Hemoglobin Concent 31.9 g/dl RDW Standard Deviation 49.8 fL RDW Coefficient of Variation 14.0 % Platelet Count 184 K/uL Mean Platelet Volume 10.0 fL Sodium Level 142 mmol/L Potassium Level 4.6 mmol/L Chloride Level 107 mmol/L Carbon Dioxide Level 30 mmol/L Anion Gap 5.0 mmol/L Blood Urea Nitrogen 15 mg/dl Creatinine 0.75 mg/dl Est Creatinine Clear Calc Drug Dose 47.3 ml/min Estimated GFR () 84.2 Estimated GFR (Non- 72.7 BUN/Creatinine Ratio 20.5 Random Glucose 77 mg/dl Calcium Level 9.0 mg/dl Magnesium Level 2.1 mg/dl Triglycerides Level 65 mg/dl Cholesterol Level 168 mg/dl HDL Cholesterol 77 mg/dl LDL Cholesterol, Calculated 78 mg/dl VLDL Cholesterol, Calculated 13 mg/dl Cholesterol/HDL Ratio 2.2 Chemistry Specimen Hemolysis Assessment and Plan 87 y/o female presented with presycope, dizziness after neurology eval some concern for vertigo, has a history of HTN, HLD, CVA, CAD, h/o [place] s/p stent to LAD in 2006, paroxysmal a-fib, h/o SVT s/p pacemaker, AAA, chronic pain, polyneuropathy, asthma, and GERD Near syncope, dizziness possible TIA. H/o carotid artery stenosis, CTA head/neck showing moderate to extensive atherosclerotic plaquing but no high grade stenosis - CT head neg cannot perform MRI as Pacemaker (currently not active), if neurology feels stongly may consider repeat CT in one - Echo ordered - awaiting results - ASA 81 mg daily Hypertensive emergency-BP elevated at time of admission to 206/60, w/headache and blurry vision Toprol XL 25 mg PO BID and lisinopril 20 mg PO qd GERD protonix 40 mg QAM, maalox prn HLD and secondary risk prevention, Lipitor 40 mg PO qd Paroxysmal a-fib, h/o SVT--pacemaker in place amiodarone 200 mg PO qd AAA- Infrarenal AAA 3.9 cm on last abdomen/pelvis CT 05/08/17 Chronic pain fentanyl 25 mcg TD q72h. Polyneuropathy gabapentin 200 mg PO TID Asthma seems stable only needing albuterol prn Code Status: FULL called daughter saba [phone]
[2017-09-02] MEDS: MECLIZINE HCL 12.5 MG TAB PO SCH ×2 (16:58→21:17)
[2017-09-02] MEDS: ENOXAPARIN 40 MG/0.4 ML SYR SC SCH (21:17)
[2017-09-02] MEDS: ATORVASTATIN 40 MG TAB PO SCH (21:17)
[2017-09-03] VITALS (11 sets, daily range): BP systolic 105–169; BP diastolic 41–71; PULSE 47–62; TEMP 36.4–36.9; O2SAT 91–98
[2017-09-03 06:10] LABS: MEAN CELL VOLUME 96.9 fL (80-100); MEAN PLATELET VOLUME 9.8 fL (7.4-10.4); PLATELET COUNT 183 K/uL (130-400); RED BLOOD COUNT 4.13 M/uL (4.2-5.4); WHITE BLOOD COUNT 5.94 K/uL (4.8-10.8)
[2017-09-03 06:46] LABS: BLOOD UREA NITROGEN 22 mg/dl (7-18); BUN/CREATININE RATIO 22.9 (10-20); CALCIUM 8.5 mg/dl (8.5-10.1); CARBON DIOXIDE 34 mmol/L (21-32); CHLORIDE 110 mmol/L (98-107); CREATININE 0.95 mg/dl (0.60-1.20); GLUCOSE 84 mg/dl (70-99); SODIUM 146 mmol/L (136-145)
[2017-09-03] MEDS: FENTANYL PATCH REMOVE & WASTE SCH (08:06)
[2017-09-03] MEDS: FENTANYL 25 MCG/HR TDSY TD SCH (08:10)
[2017-09-03] MEDS: CHECK FENTANYL PATCH PLACEMENT SCH ×4 (08:12→23:18)
[2017-09-03] MEDS: DOCUSATE SODIUM 100 MG CAP PO SCH ×2 (08:14→20:57)
[2017-09-03] MEDS: MECLIZINE HCL 12.5 MG TAB PO SCH ×3 (08:14→20:58)
[2017-09-03] MEDS: GABAPENTIN 100 MG CAP PO SCH ×3 (08:15→20:58)
[2017-09-03] MEDS: ASPIRIN 81 MG ECTAB PO SCH (08:15)
[2017-09-03] MEDS: AMIODARONE 200 MG TAB PO SCH (08:16)
[2017-09-03] MEDS: PANTOprazole SOD 40 MG TAB PO SCH (08:16)
[2017-09-03] MEDS: LISINOPRIL 20 MG TAB PO SCH (08:18)
[2017-09-03] MEDS: NIFEdipine 30 MG CR TAB PO SCH (08:18)
[2017-09-03] MEDS: CHOLECALCIFEROL 1000 INTER.UNIT TAB PO SCH (08:18)
[2017-09-03] MEDS ORDERED: METOPROLOL SUCC 25MG EXT REL TAB PO SCH (09:00)
--- NOTE | 2017-09-03 10:45 | Hospitalist Progress Note ---
Hospitalist Progress Note Date of Service Sep 03, 2017. Objective Vital Signs Date Time Temp Pulse Resp B/P (MAP) Pulse Ox O2 Delivery O2 Flow Rate FiO2 09/03/17 08:00 97 Room Air 09/03/17 07:31 36.6 54 20 161/61 (94) 94 51 159/55 (89) 62 142/65 (90) 09/03/17 04:00 36.7 55 169/71 (103) 95 Room Air 09/03/17 04:00 Room Air 09/03/17 00:00 Room Air 09/02/17 23:40 36.9 58 20 137/58 (84) 96 Room Air 09/02/17 20:00 93 Room Air 09/02/17 19:15 36.8 52 18 125/65 (85) 93 Room Air 09/02/17 16:00 Room Air 09/02/17 15:27 36.3 51 18 142/ (47) 96 Room Air 09/02/17 12:00 Room Air 09/02/17 12:00 36.8 44 20 101/58 (72) 96 Room Air Laboratory Results Last 24 Hours Test 09/03/17 05:59 09/03/17 07:13 White Blood Count 5.94 K/uL Red Blood Count 4.13 M/uL Hemoglobin 13.2 g/dL Hematocrit 40.0 % Mean Corpuscular Volume 96.9 fL Mean Corpuscular Hemoglobin 32.0 pg Mean Corpuscular Hemoglobin Concent 33.0 g/dl RDW Standard Deviation 50.3 fL RDW Coefficient of Variation 14.0 % Platelet Count 183 K/uL Mean Platelet Volume 9.8 fL Sodium Level 146 mmol/L Potassium Level mmol/L 4.2 mmol/L Chloride Level 110 mmol/L Carbon Dioxide Level 34 mmol/L Anion Gap 2.0 mmol/L Blood Urea Nitrogen 22 mg/dl Creatinine 0.95 mg/dl Est Creatinine Clear Calc Drug Dose 37.6 ml/min Estimated GFR () 63.3 Estimated GFR (Non- 54.6 BUN/Creatinine Ratio 22.9 Random Glucose 84 mg/dl Calcium Level 8.5 mg/dl Magnesium Level mg/dl Assessment and Plan 87 y/o female with a history of HTN, HLD, CVA, CAD, h/o [place] s/p stent to LAD in 2006, paroxysmal a-fib, h/o SVT s/p pacemaker, AAA, chronic pain, polyneuropathy , asthma, and GERD who presented to the ED on 08/31 with near syncope. Pt bradycardic, hypertensive on arrival. Near syncope, possible TIA. H/o carotid artery stenosis Episode of dizziness while in bathtub - Symptoms are largely resolved - ? if this is due to BPPV, - Neuro on board - cont meclizine - CTA head/neck showing moderate to extensive atherosclerotic plaquing of the clinoid and supraclinoid internal carotid arteries, with ~50% luminal narrowing bilaterally. But No high-grade stenosis, proximal branch occlusion, aneurysm or dissection. - CT head neg - if sx today then will repeat because cant do MRI d/t pacemaker - ASA 81 mg daily with hx of CAD - PT/OT Hypertensive emergency-BP elevated at time of admission to 206/60, w/headache and blurry vision - BP remains elevated in 170s-190s systolic however bradycardi with multiple PACs overnight. - Cont decreased Toprol XL 25 mg PO once daily and lisinopril 20 mg PO qd for BP control. GERD - Start protonix 40 mg QAM - indigestion may be playing role in throat clearing/ burping/burning sensation, maalox prn HLD - Continue Lipitor 40 mg PO qd Paroxysmal a-fib, h/o SVT--pacemaker in place - Continue amiodarone 200 mg PO qd AAA - Infrarenal AAA 3.9 cm on last abdomen/pelvis CT 05/08/17 Chronic pain - Continue fentanyl 25 mcg TD q72h. Due for new patch today Polyneuropathy - Continue gabapentin 200 mg PO TID Asthma - Continue albuterol inhaler prn SOB/wheezing Code Status: FULL code Disposition: From home, lives with daughter
--- NOTE | 2017-09-03 14:15 | Progress Note ---
Subjective Date of Service: Sep 03, 2017. Subjective this pt is tearful and is concerned about weakness in her legs but no focal weakness, is having some asymptomatic bradycardia with no lower blood pressure, she is tearful Problem List Medical Problems: (1) CVA (cerebral vascular accident) Status: Acute (2) Dizziness Status: Acute (3) Hypertension Status: Acute (4) Nausea Status: Acute (5) Near syncope Status: Acute (6) Pneumonia Status: Acute (7) Right sided abdominal pain Status: Acute (8) Weakness Status: Acute (9) Weakness generalized Status: Acute Review of Systems Constitutional: + fever, + chills, + weakness, + fatigue Respiratory: No cough, No sputum Cardiac: No chest pain, No orthopnea, No PND Abdomen: No pain, No nausea Musculoskeletal: No joint pain, No muscle pain Neurologic: + weakness, + vertigo, + balance problems, No memory loss Psychiatric: No depression symptoms, No anhedonism Objective Vital Signs Date Time Temp Pulse Resp B/P (MAP) Pulse Ox O2 Delivery O2 Flow Rate FiO2 09/03/17 13:35 48 117/58 (77) 09/03/17 12:00 36.9 48 18 115/58 (77) 98 Room Air 09/03/17 12:00 Room Air 09/03/17 08:00 97 Room Air 09/03/17 07:31 36.6 54 20 161/61 (94) 94 51 159/55 (89) 62 142/65 (90) 09/03/17 04:00 36.7 55 169/71 (103) 95 Room Air 09/03/17 04:00 Room Air 09/03/17 00:00 Room Air 09/02/17 23:40 36.9 58 20 137/58 (84) 96 Room Air 09/02/17 20:00 93 Room Air 09/02/17 19:15 36.8 52 18 125/65 (85) 93 Room Air 09/02/17 16:00 Room Air 09/02/17 15:27 36.3 51 18 142/ (47) 96 Room Air Physical Exam General Appearance: WD/WN, + mild distress Eyes: PERRL, EOMI Respiratory/Chest: chest non-tender, lungs clear, normal breath sounds Cardiovascular: + bradycardia, + systolic murmur Abdomen: normal bowel sounds, non tender, soft Extremities: no pedal edema, no calf tenderness Neurologic/Psychiatric: alert, oriented x 3 Laboratory Results Last 24 Hours Test 09/03/17 05:59 09/03/17 07:13 White Blood Count 5.94 K/uL Red Blood Count 4.13 M/uL Hemoglobin 13.2 g/dL Hematocrit 40.0 % Mean Corpuscular Volume 96.9 fL Mean Corpuscular Hemoglobin 32.0 pg Mean Corpuscular Hemoglobin Concent 33.0 g/dl RDW Standard Deviation 50.3 fL RDW Coefficient of Variation 14.0 % Platelet Count 183 K/uL Mean Platelet Volume 9.8 fL Sodium Level 146 mmol/L Potassium Level mmol/L 4.2 mmol/L Chloride Level 110 mmol/L Carbon Dioxide Level 34 mmol/L Anion Gap 2.0 mmol/L Blood Urea Nitrogen 22 mg/dl Creatinine 0.95 mg/dl Est Creatinine Clear Calc Drug Dose 37.6 ml/min Estimated GFR () 63.3 Estimated GFR (Non- 54.6 BUN/Creatinine Ratio 22.9 Random Glucose 84 mg/dl Calcium Level 8.5 mg/dl Magnesium Level mg/dl Assessment and Plan 87 y/o female presented with presycope, dizziness after neurology eval some concern for vertigo, has a history of HTN, HLD, CVA, CAD, h/o [place] s/p stent to LAD in 2006, paroxysmal a-fib, h/o SVT s/p pacemaker, AAA, chronic pain, polyneuropathy, asthma, and GERD Near syncope, dizziness possible TIA. given still some symptoms, will repeat CT H/o carotid artery stenosis, CTA head/neck showing moderate to extensive atherosclerotic plaquing but no high grade stenosis - CT head neg cannot perform MRI as Pacemaker (currently not active), if neurology feels stongly pending repeat CT in one - Echo ordered - awaiting results - ASA 81 mg daily Hypertensive emergency-BP elevated at time of admission to 206/60, w/headache and blurry vision has had difficult times with lower heart rate and metoprolol has been reduced each day 09/02 and GERD protonix 40 mg QAM, maalox prn HLD and secondary risk prevention, Lipitor 40 mg PO qd Paroxysmal a-fib, h/o SVT--pacemaker in place amiodarone 200 mg PO qd AAA- Infrarenal AAA 3.9 cm on last abdomen/pelvis CT 05/08/17 Chronic pain fentanyl 25 mcg TD q72h. Polyneuropathy gabapentin 200 mg PO TID Asthma seems stable only needing albuterol prn Code Status: FULL spoke to pt and will prefer to consider [facility] not [facility] called daughter saba [phone]
--- NOTE | 2017-09-03 14:29 | DIAGNOSTIC IMAGING REPORT ---
HEAD WITHOUT CONTRAST (CT) CLINICAL HISTORY: 87 years-old Female with eval with comparison to 08/31 for cva. Acute strokelike symptoms. TECHNIQUE: Multiple axial CT images of the head were obtained without contrast. A dose lowering technique was utilized adhering to the principles of ALARA. CT DOSE: 537.48 mGy.cm COMPARISON: CT head and CTA head 08/31/2017. FINDINGS: No acute intracranial hemorrhage, midline shift, mass, large territorial ischemia or abnormal extra-axial collection. Moderate atrophy with ex vacuo ventriculomegaly. Atherosclerotic plaquing is seen involving the cerebral vasculature at the level of the skull base. Background chronic microvascular ischemic changes. The calvarium is intact. The paranasal sinuses, mastoid air cells, and middle ear cavities are clear. IMPRESSION: 1. No acute intracranial abnormality. No hemorrhage or territorial ischemia identified. 2. Atrophy with chronic microvascular ischemic changes. The above report was generated using voice recognition software. It may contain grammatical, syntax or spelling errors. Electronically signed by: Alvin Presley M.D. 09/03/2017 2:28 PM Dictated Date/Time: 09/03/2017 2:24 PM
[2017-09-03] MEDS: ATORVASTATIN 40 MG TAB PO SCH (20:57)
[2017-09-03] MEDS: ENOXAPARIN 40 MG/0.4 ML SYR SC SCH (20:59)
[2017-09-04] VITALS (7 sets, daily range): BP systolic 108–170; BP diastolic 66–71; PULSE 49–73; TEMP 36.4–37.1; O2SAT 92–97
[2017-09-04] MEDS: CHECK FENTANYL PATCH PLACEMENT SCH ×3 (08:00→23:24)
[2017-09-04] MEDS: GABAPENTIN 100 MG CAP PO SCH ×3 (08:38→19:32)
[2017-09-04] MEDS: AMIODARONE 200 MG TAB PO SCH (08:40)
[2017-09-04] MEDS: DOCUSATE SODIUM 100 MG CAP PO SCH ×2 (08:40→19:32)
[2017-09-04] MEDS: ASPIRIN 81 MG ECTAB PO SCH (08:40)
[2017-09-04] MEDS: POLYETHYLENE (MIRALAX) 17 GM PACK PO SCH (08:41)
[2017-09-04] MEDS: MECLIZINE HCL 12.5 MG TAB PO SCH ×3 (08:41→19:32)
[2017-09-04] MEDS: CHOLECALCIFEROL 1000 INTER.UNIT TAB PO SCH (08:41)
[2017-09-04] MEDS: PANTOprazole SOD 40 MG TAB PO SCH (08:41)
[2017-09-04] MEDS: LISINOPRIL 10 MG TAB PO SCH (08:42)
[2017-09-04] MEDS: METOPROLOL SUCC 25MG EXT REL TAB PO SCH (08:43)
--- NOTE | 2017-09-04 13:42 | Progress Note ---
Subjective Date of Service: Sep 04, 2017. Subjective pt feels better todays goal is short ambulation in [place], have reduced htn medication with improved heart rate Problem List Medical Problems: (1) CVA (cerebral vascular accident) Status: Acute (2) Dizziness Status: Acute (3) Hypertension Status: Acute (4) Nausea Status: Acute (5) Near syncope Status: Acute (6) Pneumonia Status: Acute (7) Right sided abdominal pain Status: Acute (8) Weakness Status: Acute (9) Weakness generalized Status: Acute Review of Systems Constitutional: + weakness, No fever, No chills Respiratory: No cough, No shortness of breath Cardiac: No chest pain, No edema Abdomen: No pain, No nausea, No vomiting, No diarrhea Objective Vital Signs Date Time Temp Pulse Resp B/P (MAP) Pulse Ox O2 Delivery O2 Flow Rate FiO2 09/04/17 12:00 36.5 56 20 160/71 (100) 97 Room Air 09/04/17 12:00 Room Air 09/04/17 08:00 Room Air 09/04/17 07:24 36.4 57 16 167/70 (102) 95 Room Air 09/04/17 04:00 Room Air 09/04/17 03:55 36.6 55 20 164/68 (100) 97 Room Air 09/03/17 23:59 96 Room Air 09/03/17 23:48 36.4 52 20 160/67 (98) 98 Room Air 09/03/17 20:00 91 Room Air 09/03/17 19:08 36.5 47 18 117/63 (81) 91 Room Air 09/03/17 16:00 94 Room Air 09/03/17 15:07 36.8 47 18 105/41 (62) 94 Room Air 09/03/17 13:35 48 117/58 (77) Physical Exam General Appearance: WD/WN, + mild distress Neck: supple, no JVD Respiratory/Chest: chest non-tender, lungs clear, normal breath sounds Cardiovascular: regular rate, rhythm, + systolic murmur Abdomen: normal bowel sounds, non tender, soft Extremities: no pedal edema, no calf tenderness Neurologic/Psychiatric: alert, oriented x 3 Assessment and Plan 87 y/o female presented with presycope, rlikely vertigo, has a history of HTN, HLD, CVA, CAD, h/o [place] s/p stent to LAD in 2006, paroxysmal a-fib, h/o SVT s/p pacemaker, AAA, chronic pain, polyneuropathy, asthma, and GERD Near syncope, dizziness vertigo less likely TIA. 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 H/o carotid artery stenosis, CTA head/neck showing moderate to extensive atherosclerotic plaquing but no high grade stenosis - ASA 81 mg daily- Pt was given scheduled meclizine and has extinguished symptoms supporting diagnosis of vertigo Hypertensive emergency-BP elevated at time of admission to 206/60, w/headache and blurry vision has had difficult times with lower heart rate and metoprolol has been reduced each day 09/02 and GERD protonix 40 mg QAM, maalox prn HLD and secondary risk prevention, Lipitor 40 mg PO qd Paroxysmal a-fib, h/o SVT- remains in sinus, bradycardic at times, amiodarone 200 mg PO qd AAA- Infrarenal AAA 3.9 cm on last abdomen/pelvis CT 05/08/17 Chronic pain fentanyl 25 mcg TD q72h. Polyneuropathy gabapentin 200 mg PO TID Asthma seems stable only needing albuterol prn Code Status: FULL spoke to pt and will prefer to consider [facility] and not [facility] called daughter saba [phone]
[2017-09-04] MEDS: ATORVASTATIN 40 MG TAB PO SCH (19:32)
[2017-09-04] MEDS: ENOXAPARIN 40 MG/0.4 ML SYR SC SCH (21:06)
[2017-09-05 04:14] VITALS: BP 180/68; PULSE 55; TEMP 36.7; O2SAT 97
[2017-09-05 06:55] VITALS: BP 191/67; PULSE 55; TEMP 36.5; O2SAT 9
[2017-09-05] MEDS: CHECK FENTANYL PATCH PLACEMENT SCH ×3 (08:00→23:33)
[2017-09-05] MEDS: GABAPENTIN 100 MG CAP PO SCH ×3 (08:12→20:57)
[2017-09-05] MEDS: MECLIZINE HCL 12.5 MG TAB PO SCH ×3 (08:13→20:57)
[2017-09-05] MEDS: DOCUSATE SODIUM 100 MG CAP PO SCH ×2 (08:13→20:57)
[2017-09-05] MEDS: CHOLECALCIFEROL 1000 INTER.UNIT TAB PO SCH (08:13)
[2017-09-05] MEDS: LISINOPRIL 10 MG TAB PO SCH (08:13)
[2017-09-05] MEDS: ASPIRIN 81 MG ECTAB PO SCH (08:13)
[2017-09-05] MEDS: PANTOprazole SOD 40 MG TAB PO SCH (08:13)
[2017-09-05] MEDS: AMIODARONE 200 MG TAB PO SCH (08:14)
[2017-09-05] MEDS: METOPROLOL SUCC 25MG EXT REL TAB PO SCH (08:15)
[2017-09-05 11:16] VITALS: BP 175/70; PULSE 51; TEMP 36.6; O2SAT 98
[2017-09-05 15:22] VITALS: BP 110/69; PULSE 58; TEMP 36.7; O2SAT 97
--- NOTE | 2017-09-05 16:47 | Progress Note ---
Subjective Date of Service: Sep 05, 2017. Subjective pt remains improved but increasingly fatigued, ua shows moderate bacteria, multiple types, no defined urinary symptoms but pt states is fatigued Problem List Medical Problems: (1) CVA (cerebral vascular accident) Status: Acute (2) Dizziness Status: Acute (3) Hypertension Status: Acute (4) Nausea Status: Acute (5) Near syncope Status: Acute (6) Pneumonia Status: Acute (7) Right sided abdominal pain Status: Acute (8) Weakness Status: Acute (9) Weakness generalized Status: Acute Review of Systems Constitutional: + weakness, + fatigue, No fever, No chills Respiratory: No cough, No shortness of breath Cardiac: No chest pain, No edema Abdomen: No pain, No nausea, No vomiting, No diarrhea Female : No dysuria, No incontinence Psychiatric: No depression symptoms, No anhedonism, No anxiety Objective Vital Signs Date Time Temp Pulse Resp B/P (MAP) Pulse Ox O2 Delivery O2 Flow Rate FiO2 09/05/17 16:00 Room Air 09/05/17 15:22 36.7 58 18 110/69 (83) 97 Room Air 09/05/17 12:00 Room Air 09/05/17 11:16 36.6 51 20 175/70 (105) 98 Room Air 09/05/17 08:00 Room Air 09/05/17 06:55 36.5 55 20 191/67 (108) 9 Room Air 09/05/17 04:14 36.7 55 18 180/68 (105) 97 Room Air 09/05/17 04:00 Room Air 09/05/17 00:01 Room Air 09/04/17 23:59 36.8 59 18 170/68 (102) 95 Room Air 09/04/17 19:39 Room Air 09/04/17 19:02 36.7 53 18 150/66 (94) 97 Room Air Physical Exam General Appearance: WD/WN, + mild distress Respiratory/Chest: chest non-tender, lungs clear, normal breath sounds Cardiovascular: regular rate, rhythm, no murmur Abdomen: normal bowel sounds, non tender, soft Extremities: no pedal edema, no calf tenderness Neurologic/Psychiatric: alert, oriented x 3 Skin: normal color, warm/dry Assessment and Plan 87 y/o female presented with pre-sycope, likely vertigo as symptoms improved with meclizine, has a history of HTN, HLD, CVA, CAD, h/o [place] s/p stent to LAD in 2006, paroxysmal a-fib, h/o SVT s/p pacemaker, AAA, chronic pain, polyneuropathy , asthma, and GERD Near syncope, dizziness vertigo less likely TIA. 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 H/o carotid artery stenosis, CTA head/neck showing moderate to extensive atherosclerotic plaquing but no high grade stenosis - ASA 81 mg daily- Pt was given scheduled meclizine and has extinguished symptoms supporting diagnosis of vertigo Hypertensive emergency-BP elevated at time of admission to 206/60, w/headache and blurry vision has had difficult times with lower heart rate and metoprolol has been reduced, now bp up will return cm to out pt level GERD no symptoms, protonix 40 mg QAM, maalox prn HLD and secondary risk prevention, Lipitor 40 mg PO qd Paroxysmal a-fib, h/o SVT- remains in sinus, asymptomatic bradycardia at times, amiodarone 200 mg PO qd AAA- Infrarenal AAA 3.9 cm on last abdomen/pelvis CT 05/08/17 Chronic pain fentanyl 25 mcg TD q72h. Polyneuropathy gabapentin 200 mg PO TID Asthma seems stable only needing albuterol prn Code Status: FULL spoke to pt and will prefer to consider [facility] and not [facility] called daughter saba [phone] 09/05
[2017-09-05 19:47] VITALS: BP 183/68; PULSE 55; TEMP 37.1; O2SAT 97
[2017-09-05] MEDS: ATORVASTATIN 40 MG TAB PO SCH (20:57)
[2017-09-05] MEDS: NITROFURANTOIN MONOHYDRATE 100 MG CAP PO SCH (20:57)
[2017-09-05] MEDS: HydrALAZINE HCL 20 MG/ML VIAL IV. PRN ×2 (21:01→22:21)
[2017-09-05] MEDS: ENOXAPARIN 40 MG/0.4 ML SYR SC SCH (22:20)
[2017-09-06 00:12] VITALS: BP 102/60; PULSE 67; TEMP 36.9; O2SAT 97
[2017-09-06 04:32] VITALS: BP 130/56; PULSE 95; TEMP 36.7; O2SAT 95
[2017-09-06] MEDS ORDERED: ANT25 PO (05:31)
[2017-09-06] MEDS ORDERED: MCRB100 PO (05:31)
[2017-09-06] MEDS ORDERED: DRGTP25 TD (05:31)
--- NOTE | 2017-09-06 05:33 | Discharge Instructions ---
Discharge Instructions Date of Service Sep 06, 2017. Admission Reason for Admission: Near Syncope Discharge Discharge Diagnosis / Problem: vertigo Discharge Goals Goal(s): Diagnostic testing, Therapeutic intervention Activity Recommendations Activity Level: Assistance Required Therapies: Physical Therapy, Occupational Therapy .87 y/o female presented with pre-sycope, likely vertigo as symptoms improved with meclizine, has a history of HTN, HLD, CVA, CAD, h/o [place] s/p stent to LAD in 2006, paroxysmal a-fib, h/o SVT s/p pacemaker, AAA, chronic pain, polyneuropathy , asthma, and GERD Near syncope, dizziness vertigo not TIA. 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 H/o carotid artery stenosis, CTA head/neck showing moderate to extensive atherosclerotic plaquing but no high grade stenosis - ASA 81 mg daily- Pt was given scheduled meclizine and has extinguished symptoms supporting diagnosis of vertigo Hypertensive emergency-BP elevated at time of admission to 206/60, w/headache and blurry vision has had difficult times with lower heart rate and metoprolol has been reduced, continue cm i GERD no symptoms, protonix 40 mg QAM, maalox prn HLD and secondary risk prevention, Lipitor 40 mg PO qd Paroxysmal a-fib, h/o SVT- remains in sinus, asymptomatic bradycardia at times, amiodarone 200 mg PO qd AAA- Infrarenal AAA 3.9 cm on last abdomen/pelvis CT 05/08/17 Chronic pain fentanyl 25 mcg TD q72h. Polyneuropathy gabapentin 200 mg PO TID Asthma seems stable only needing albuterol prn Code Status: FULL daughter saba [phone] 09/05 Additional Information Patient informed of condition: Yes Advance Directives: Yes DNR: No Level of Care: Skilled Communicable Disease: No Prognosis: Stable Greer Catheter: No Current Hospital Diet Patient's current hospital diet: AHA Diet (Heart Healthy) Discharge Diet Recommended Diet: Regular Diet Pending Studies Studies pending at discharge: no Laboratory Results Hemoglobin A1c Test 08/31/17 14:40 Range/Units Estimated Average Glucose 111 mg/dl Hemoglobin A1c 5.5 4.5-5.6 % Lipid Panel Test 09/01/17 06:31 Range/Units Triglycerides Level 65 0-150 mg/dl Cholesterol Level 168 0-200 mg/dl HDL Cholesterol 77 mg/dl Cholesterol/HDL Ratio 2.2 LDL Cholesterol, Calculated 78 mg/dl Medical Emergencies . Who to Call and When: Medical Emergencies: If at any time you feel your situation is an emergency, please call 911 immediately. . Non-Emergent Contact Non-Emergency issues call your: Primary Care Provider Call Non-Emergent contact if: temperature is above 101, your pain is unusual for you . . "Provider Documentation" section prepared by Alexy Mancera. . Core Measure Problem Core Measures: None
[2017-09-06 07:16] VITALS: BP 167/76; PULSE 60; TEMP 37.7; O2SAT 96
[2017-09-06 08:09] LABS: CREATININE 0.71 mg/dl (0.60-1.20)
[2017-09-06] MEDS: CHECK FENTANYL PATCH PLACEMENT SCH (08:20)
[2017-09-06] MEDS: FENTANYL PATCH REMOVE & WASTE SCH (08:59)
[2017-09-06] MEDS ORDERED: LISINOPRIL 20 MG TAB PO SCH (09:00)
[2017-09-06] MEDS: FENTANYL 25 MCG/HR TDSY TD SCH (09:09)
[2017-09-06] MEDS: NITROFURANTOIN MONOHYDRATE 100 MG CAP PO SCH (09:11)
[2017-09-06] MEDS: MECLIZINE HCL 12.5 MG TAB PO SCH (09:11)
[2017-09-06] MEDS: PANTOprazole SOD 40 MG TAB PO SCH (09:12)
[2017-09-06] MEDS: CHOLECALCIFEROL 1000 INTER.UNIT TAB PO SCH (09:12)
[2017-09-06] MEDS: DOCUSATE SODIUM 100 MG CAP PO SCH (09:12)
[2017-09-06] MEDS: METOPROLOL SUCC 25MG EXT REL TAB PO SCH (09:12)
[2017-09-06] MEDS: ASPIRIN 81 MG ECTAB PO SCH (09:12)
[2017-09-06] MEDS: POLYETHYLENE (MIRALAX) 17 GM PACK PO SCH (09:13)
[2017-09-06] MEDS: AMIODARONE 200 MG TAB PO SCH (09:13)
[2017-09-06] MEDS: GABAPENTIN 100 MG CAP PO SCH (09:13)
[2017-09-06 10:53] VITALS: BP 182/77; PULSE 57; TEMP 36.6; O2SAT 97
[2017-09-06 11:37] VITALS: BP 155/68; PULSE 63; TEMP 36.6; O2SAT 97
--- NOTE | 2017-09-06 14:36 | Discharge Summary ---
Discharge Summary Date of Service Sep 06, 2017. Discharge Summary Admission Date: Sep 02, 2017 at 15:27 Discharge Date: Sep 06, 2017 Discharge Disposition: snf facility Principal Diagnosis: vertigo, deconditioining Immunizations: Have You Had Influenza Vaccine: Unknown History of Tetanus Vaccine?: Unknown History of Pneumococcal: Unknown History of Hepatitis B Vaccine: Unknown Medication Reconciliation New Medications: Meclizine HCl (Meclizine HCl) 25 Mg Tab 12.5 MG PO TID PRN for Dizziness or Vertigo, #30 TAB Nitrofurantoin Monohyd Macrocr (Nitrofurantoin Monohydrat) 100 Mg Cap 100 MG PO BID, #4 CAP Continued Medications: Acetaminophen (Tylenol) 500 Mg Tab 1000 MG PO Q6H PRN for Pain, TAB Albuterol Hfa (Ventolin Hfa) 200 Puffs/49961 Mcg Aers 2 PUFFS INH Q6H PRN for SOB/Wheezing, #1 INHALER Amiodarone Hcl (Cordarone) 200 Mg Tab 200 MG PO QAM, TAB Aspirin (Aspirin 81) 81 Mg Tab 81 MG PO QAM PT WILL CHECK WITH SURGEON Atorvastatin (Lipitor) 40 Mg Tab 40 MG PO HS, TAB Cholecalciferol (Vitamin D) 1,000 Unit Tab 2000 UNITS PO QAM Docusate Sodium (Docusate Sodium) 100 Mg Cap 100 MG PO BID Fentanyl (Fentanyl) 25 Mcg Tdsy 25 MCG TD CQ72HR, #10 PATCH (This prescription has been renewed) Gabapentin (Neurontin) 100 Mg Cap 200 MG PO TID, CAP Lisinopril (Prinivil) 20 Mg Tab 20 MG PO QAM, TAB Metoprolol Succinate (Toprol Xl) 25 Mg Tabcr 12.5 MG PO BID, #30 TAB Ondansetron Hcl (Zofran) 4 Mg Tab 4 MG PO PRN PRN for Nausea, TAB Polyethylene Glycol 3350 (Miralax) 1 Pow Pow 17 GM PO Q2D, GM Zoledronic Acid (Reclast) 5 Mg/100 Ml Inj 5 MG INJ YEARLY Discharge Exam Review of Systems: Constitutional: + weakness, + fatigue, No fever, No chills Cardiovascular: No chest pain, No orthopnea, No edema Abdomen: No pain, No nausea, No vomiting, No diarrhea Neurologic: + weakness, + balance problems, No memory loss, No paralysis Physical Exam: General Appearance: WD/WN, + mild distress Eyes: PERRL, EOMI Neck: supple, no JVD Respiratory/Chest: chest non-tender, lungs clear, normal breath sounds Hospital Course .87 y/o female presented with pre-sycope, likely vertigo as symptoms improved with meclizine, has a history of HTN, HLD, CVA, CAD, h/o [place] s/p stent to LAD in 2006, paroxysmal a-fib, h/o SVT s/p pacemaker, AAA, chronic pain, polyneuropathy , asthma, and GERD Near syncope, dizziness vertigo not TIA. 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 H/o carotid artery stenosis, CTA head/neck showing moderate to extensive atherosclerotic plaquing but no high grade stenosis - ASA 81 mg daily- Pt was given scheduled meclizine and has extinguished symptoms supporting diagnosis of vertigo Hypertensive emergency-BP elevated at time of admission to 206/60, w/headache and blurry vision has had difficult times with lower heart rate and metoprolol has been reduced, continue cm i GERD no symptoms, protonix 40 mg QAM, maalox prn HLD and secondary risk prevention, Lipitor 40 mg PO qd Paroxysmal a-fib, h/o SVT- remains in sinus, asymptomatic bradycardia at times, amiodarone 200 mg PO qd AAA- Infrarenal AAA 3.9 cm on last abdomen/pelvis CT 05/08/17 Chronic pain fentanyl 25 mcg TD q72h. Polyneuropathy gabapentin 200 mg PO TID Asthma seems stable only needing albuterol prn Code Status: FULL daughter saba [phone] 09/05 Total Time Spent: Greater than 30 minutes This includes examination of the patient, discharge planning, medication reconciliation, and communication with other providers. Discharge Instructions Please refer to the electronic Patient Visit Report (Discharge Instructions) for additional information.
== END 2017-09-06 11:50 | DRG 312 ==
LOC: EDBD 13:07 → C.EDC 13:09 → C.2T 19:21 → ENRESERV 19:29 → OBSVTOIN 09-02 15:27
PROVIDERS: ADMIT Internal Medicine; ATTEND Internal Medicine
DX: R55 Syncope and collapse (principal); I16.1 Hypertensive emergency; R42 Dizziness and giddiness; K21.9 Gastro-esophageal reflux disease without esophagitis; E78.5 Hyperlipidemia, unspecified; I25.2 Old myocardial infarction; I25.10 Atherosclerotic heart disease of native coronary artery without angina pectoris; I48.0 Paroxysmal atrial fibrillation; I71.4 Abdominal aortic aneurysm, without rupture; G62.9 Polyneuropathy, unspecified; J45.909 Unspecified asthma, uncomplicated; G89.29 Other chronic pain; Z79.82 Long term (current) use of aspirin; Z79.899 Other long term (current) drug therapy; Z86.73 Personal history of transient ischemic attack (TIA), and cerebral infarction without residual deficits; Z95.0 Presence of cardiac pacemaker

== ENCOUNTER → 2017-12-12 | Outpatient (CLI) | payer BC ==
[~2017-12-12] MED LIST changes: +ANT25 PO; +MCRB100 PO
--- NOTE | 2017-12-13 07:52 | MAMMOGRAPHY REPORT ---
BILATERAL DIGITAL SCREENING MAMMOGRAM WITH CAD: 12/12/2017 CLINICAL HISTORY: Routine screening. Patient has no complaints. TECHNIQUE: Bilateral CC and MLO views were obtained. Current study was also evaluated with a Comput er Aided Detection (CAD) system. COMPARISON: Comparison is made to exams dated: 12/07/2016 mammogram, 11/10/2015 mammogram, 11/08/2014 mammogram, 11/07/2013 mammogram, 11/06/2012 mammogram, and 11/03/2011 mammogram - [facility]. BREAST COMPOSITION: There are scattered areas of fibroglandular density in both breasts. FINDINGS: A pacemaker projects over the right superior axillary region and pectoralis muscle on the M LO view. There are moderate vascular calcifications in the breasts. No suspicious mass, architectur al distortion or cluster of suspicious microcalcifications is seen. IMPRESSION: ACR BI-RADS CATEGORY 1: NEGATIVE There is no mammographic evidence of malignancy. A 1 year screening mammogram is recommended. The pa tient will receive written notification of the results. Approximately 10% of breast cancers are not detected with mammography. A negative mammographic report should not delay biopsy if a clinically suggestive mass is present. Loyda Stephenson M.D. ay/:12/12/2017 14:58:29 Director Clinical Information Services: Radha Martin, [facility] letter sent: Normal 1/2 BI-RADS Code: ACR BI-RADS Category 1: Negative
== END | disposition home or self-care (01) ==
LOC: C.MAMM 13:38
PROVIDERS: ATTEND Internal Medicine Geriatric Medicine
DX: Z12.31 Encounter for screening mammogram for malignant neoplasm of breast (principal)

== ENCOUNTER → 2017-12-13 | Outpatient (CLI) | payer BC | END | disposition home or self-care (01) | LOC: C.LABSPEC 14:58 | PROVIDERS: ATTEND Internal Medicine Geriatric Medicine | DX: R39.9 Unspecified symptoms and signs involving the genitourinary system (principal) ==

== ENCOUNTER 2018-01-06 13:32 | Inpatient (IN) | payer BC, OTHER ==
[~2018-01-06] VITALS: Ht 157.5 cm; Wt 65.4 kg
[~2018-01-06 13:32] MED LIST changes: -METO25TA3 PO; +METO25TA4 PO
--- NOTE | 2018-01-06 14:19 | EMERGENCY ROOM VISIT NOTE ---
History Report prepared by Felisa: Joni Gongora Under the Supervision of: Dr. Yayo Galindo M.D. First contact with patient: 14:06 Chief Complaint: PAIN (GENERALIZED) Stated Complaint: NEAR SYNCOPE/UNABLE TO AMBULATE History of Present Illness The patient is an 87 year old female who presents to the Emergency Room with complaints of constant generalized pain since this morning that goes into her back, legs, and abdomen. The patient states that she is having pain, and she is unable to walk due to her leg pain, though this has been going on for a while. She additionally states that she almost passed out after standing up, and she was uneasy. She states that she was then nauseous and had a headache, and she states that she has some off and on abdominal pain. The patient reports that she has had similar symptoms in the past, and she has been admitted for the hospital for this. Source of History: patient Onset: this morning Position: other (global) Quality: other (pain) Timing: constant Associated Symptoms: + headache, + nausea, + abdominal pain, + back pain Note: Associated symptoms: Unable to walk Review of Systems See HPI for pertinent positives & negatives. A total of 10 systems reviewed and were otherwise negative. 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 (12) PERIPH VASCULAR DIS NOS (13) Severe hypertension (14) Thoracic spinal stenosis Surgical Problems: (1) S/P laminectomy Family History Cancer (breast, uterine) Myocardial infarction Parkinson's disease Social History Smoking Status: Never Smoker Alcohol Use: none Drug Use: none Marital Status: single Housing Status: lives with family Occupation Status: retired Current/Historical Medications Scheduled Amiodarone Hcl (Cordarone), 200 MG PO QAM Aspirin (Aspirin 81), 81 MG PO QAM Atorvastatin (Lipitor), 40 MG PO HS Cholecalciferol (Vitamin D), 2,000 UNITS PO QAM Docusate Sodium (Docusate Sodium), 100 MG PO BID Fentanyl (Fentanyl), 25 MCG TD [id number] Gabapentin (Neurontin), 200 MG PO TID Metoprolol Succinate (Toprol Xl), 12.5 MG PO BID Nitrofurantoin Monohyd Macrocr (Nitrofurantoin Monohydrat), 100 MG PO BID Polyethylene Glycol 3350 (Miralax), 17 GM PO Q2D Zoledronic Acid (Reclast), 5 MG INJ YEARLY Scheduled PRN Acetaminophen (Tylenol), 1,000 MG PO Q6H PRN for Pain Albuterol Hfa (Ventolin Hfa), 2 PUFFS INH Q6H PRN for SOB/Wheezing Meclizine HCl (Meclizine HCl), 12.5 MG PO TID PRN for Dizziness or Vertigo Ondansetron Hcl (Zofran), 4 MG PO PRN PRN for Nausea Allergies Coded Allergies: Adenosine (Verified Allergy, Unknown, "pt not sure had it in er years ago ", 01/06/18) Physical Exam Vital Signs Date Time Temp Pulse Resp B/P (MAP) Pulse Ox O2 Delivery O2 Flow Rate FiO2 01/06/18 20:37 72 14 01/06/18 20:07 71 17 01/06/18 19:37 70 16 01/06/18 19:30 138/56 01/06/18 19:07 68 15 01/06/18 19:02 69 16 01/06/18 19:00 123/51 01/06/18 18:57 137/61 01/06/18 17:35 71 01/06/18 17:34 68 18 113/47 96 Room Air 01/06/18 17:33 113/47 01/06/18 17:32 70 15 01/06/18 17:02 70 17 01/06/18 16:33 71 20 140/70 97 Room Air 01/06/18 16:32 76 16 01/06/18 16:25 140/70 01/06/18 16:02 72 16 01/06/18 15:32 73 19 01/06/18 15:17 143/54 01/06/18 15:16 76 20 143/54 95 Room Air 01/06/18 15:13 131/73 01/06/18 15:11 163/58 01/06/18 15:10 73 163/79 82 163/58 88 131/73 01/06/18 15:02 72 19 01/06/18 14:32 72 18 95 01/06/18 14:02 71 19 90 01/06/18 13:44 69 01/06/18 13:42 93 Room Air 01/06/18 13:39 36.3 77 18 169/45 98 Room Air 01/06/18 13:36 169/45 Physical Exam GENERAL: Patient is a healthy-appearing well-nourished female HEAD: Normocephalic atraumatic EYES: Ocular movements intact pupils equal and react to light OROPHARYNX mucous membranes are moist no exudates present no erythema or edema present NECK: Supple no nuchal rigidity CHEST: Good equal expansion LUNGS: Clear and equal to auscultation CARDIAC: Normal S1 and S2 ABDOMEN: Tender in the epigastric area. Soft no guarding BACK: No CVA tenderness EXTREMITIES: Strength is 3/5 in the right lower extremity. Neurovascularly intact in the right lower extremity. No pain upon palpation normal muscle strength in all groups no clubbing cyanosis or edema NEURO: Patient is following commands and answering questions appropriately. Alert and oriented x3 Cranial Nerves 2-12 grossly intact Medical Decision & Procedures ER Provider Diagnostic Interpretation: Radiology results as stated below per my review and radiologist interpretation: HEAD WITHOUT CONTRAST (CT) CT DOSE: 638.56 mGycm HISTORY: Pt c/o Rt leg weakness TECHNIQUE: Multiaxial CT images of the head were performed without the use of intravenous contrast. A dose lowering technique was utilized adhering to the principles of ALARA. Comparison: 09/03/2017 Findings: The paranasal sinuses and mastoid air cells are clear. The calvarium and skull base are intact. The ventricles and sulci are within normal limits. There is no mass, hematoma, midline shift, or acute infarct. Small old left occipital infarct. No acute intracranial hemorrhage. Mild age-related atrophy and chronic small vessel change. Impression: Chronic and age-related change. No acute intracranial abnormality. The above report was generated using voice recognition software. It may contain grammatical, syntax or spelling errors. Electronically signed by: Grant Fabian M.D. 01/06/2018 5:56 PM Dictated Date/Time: 01/06/2018 5:54 PM ABD/PELVIS IV CONTRAST ONLY CLINICAL HISTORY: 87 years-old Female presenting with Pt c/o diffuse abd pain . TECHNIQUE: Multidetector CT of the abdomen and pelvis was performed after the administration of intravenous contrast. IV contrast: 92 mL of Optiray 320. A dose lowering technique was used consistent with the principles of ALARA (as low as reasonably achievable). COMPARISON: 05/08/2017. CT DOSE (mGy.cm): The estimated cumulative dose is 875.87 mGycm. 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 Partially visualized lead to the right atrium. Lung bases: Dependent consolidation and volume loss of the lower lobes. Right atrium lead noted. Coronary artery, aortic valve, and mitral annular calcification. Mild multichamber enlargement of the heart. Trace bilateral pleural effusions. No pericardial effusion. Liver: Normal morphology. No liver lesion. Patent hepatic vasculature. Biliary: Stable moderate diffuse intrahepatic and marked extrahepatic biliary ductal dilatation. The cystic duct remnant is also dilated as on prior exam. Gallbladder surgically absent. Pancreas: Moderate parenchymal atrophy. Chronic pancreatic ductal dilatation as on prior exams. No mass lesion at the pancreatic head. Spleen: Normal. Adrenal glands: Mild nodular thickening of the adrenal glands, nonspecific. Kidneys and ureters: Prominent lobulations of the kidneys. No focal lesion. No hydronephrosis. No nephrolithiasis. Bladder: Allowing for underdistention, circumferential bladder wall thickening. Pelvic organs: Uterus surgically absent. No adnexal masses. Bowel: Moderate stool burden. Limited diverticulosis of the sigmoid colon. No bowel obstruction. Duodenal diverticulum at the level of the pancreatic head noted. Peritoneal cavity: No free fluid or intraperitoneal gas. Lymph nodes: No enlarged lymph nodes in the abdomen or pelvis. Vasculature: Redemonstration of the infrarenal abdominal aortic aneurysm, which measures up to 4.1 cm in transverse dimension, previously 3.9 cm prominent crescentic mural thrombus or noncalcified atherosclerotic plaque again noted. Ectasia of the aorta at the level of the aortic hiatus also noted, which measures 3.5 cm in diameter, previously 3.4 cm. Infrarenal IVC filter in place with several tines the on the lumen confines. The IVC appears patent. Abdominal wall: Small fat-containing umbilical hernia. Musculoskeletal: Degenerative changes of the spine. Degenerative changes of the pubic symphysis. Postsurgical changes of laminectomies of L2-L5. Osteopenia. IMPRESSION: 1. Circumference of bladder wall thickening could suggest cystitis. Correlate with urinalysis. 2. Stable intrahepatic and extrahepatic biliary ductal dilatation. No obstructing mass or calculus. Potentially this could be due to the presence of the duodenal diverticulum or a benign stricture. This is unchanged from priors. 3. Diverticulosis. 4. Moderate stool burden consistent with constipation. 5. Minimal increased size of the infrarenal abdominal aortic aneurysm, which measures 4.1 cm. Essentially stable ectasia of the aorta at the level of the aortic hiatus, which measures 3.5 cm. Electronically signed by: Hector Cervantes M.D. 01/06/2018 6:03 PM Dictated Date/Time: 01/06/2018 5:54 PM SINGLE VIEW CHEST CLINICAL HISTORY: Generalized weakness. FINDINGS: An AP, portable, upright chest radiograph is compared to study dated 08/31/2017. The examination is degraded by portable technique and patient rotation. The heart is enlarged and there is atherosclerotic calcification of the thoracic aorta. The pulmonary vasculature is noncongested. A cardiac pacing device projects over the right chest. A single lead projects over the atria. The mitral annulus is densely calcified. Chronic interstitial thickening is similar to previous. Trace pleural effusions are suspected. No pneumothorax is seen. The skeletal structures are osteopenic. Advanced arthritic change is noted in the shoulders and thoracic spine. IMPRESSION: 1. Cardiomegaly without radiographic evidence of congestive failure. 2. Suspect trace pleural effusions. Electronically signed by: Juan Galindo M.D. 01/06/2018 3:44 PM Dictated Date/Time: 01/06/2018 3:42 PM Laboratory Results Test 01/06/18 15:05 01/06/18 15:19 01/06/18 16:21 01/06/18 16:30 Influenza Type A Antigen Neg for Influ A (NEG) Influenza Type B Antigen Neg for Influ B (NEG) Bedside Glucose 88 mg/dl (70-90) Total Creatine Kinase 55 U/L (26-192) Creatine Kinase MB 1.7 ng/ml (0.5-3.6) Creatine Kinase MB Ratio 3.1 (0-3.0) Troponin I < 0.015 ng/ml (0-0.045) Thyroid Stimulating Hormone (TSH) 1.430 uIu/ml (0.300-4.500) Urine Color YELLOW Urine Appearance CLEAR (CLEAR) Urine pH 6.5 (4.5-7.5) Urine Specific [place] 1.023 (1.000-1.030) Urine Protein NEG (NEG) Urine Glucose (UA) NEG (NEG) Urine Ketones NEG (NEG) Urine Occult Blood NEG (NEG) Urine Nitrite NEG (NEG) Urine Bilirubin NEG (NEG) Urine Urobilinogen NEG (NEG) Urine Leukocyte Esterase NEG (NEG) Labs reviewed by ED physician. Medications Administered Medications (Trade) Dose Ordered Sig/Yifan Route Start Time Stop Time Status Last Admin Dose Admin Sodium Chloride 1,000 ml @ 999 mls/hr Q1H1M STAT IV 01/06/18 18:34 01/06/18 20:36 DC 01/06/18 19:10 999 MLS/HR Docusate Sodium (coLACE CAP) 100 mg BID PO 01/06/18 21:00 02/05/18 21:00 01/07/18 09:57 100 MG Gabapentin (Neurontin Cap) 200 mg TID PO 01/06/18 21:00 02/05/18 21:00 01/07/18 14:28 200 MG Metoprolol Succinate (Toprol Xl Tab) 12.5 mg BID PO 01/06/18 21:00 02/05/18 21:00 01/07/18 09:57 12.5 MG ECG Indication: abdominal pain, back/shoulder pain Rate (beats per minute): 71 Rhythm: normal sinus Findings: other (Old inferior infarct. No ST elevation or depression.) Change: Patient's electrocardiogram per my interpretation. ED Course 1406: Past medical records reviewed. The patient was evaluated in room B6. A complete history and physical examination was performed. 1552: I reevaluated the patient, and she was still having some pain. 1709: Upon reevaluation, the patient is doing well. 1833: I talked to the patient, and she states that she wants to go to [facility]. I discussed the treatment plans with the patient, and she was agreeable. 1834: Sodium Chloride 1000 ml @ 999 mls/hr 1929: I discussed the patient's case with Dr. Brown, he has agreed to evaluate the patient for further management and care. Medical Decision Differential diagnosis: Etiologies such as appendicitis, diverticulitis, PUD, biliary pathology, UTI, pancreatitis, obstruction, mesenteric ischemia, aortic pathology, infections, inflammatory bowel disease, renal colic, as well as others were entertained. This is an 87-year-old female who presents emergency department complaining of bilateral leg pain as well as a near syncopal episode at home today. I did discuss the case with case management as I feel that the patient is high risk for falling again at home. The patient is tearful on examination and her family is concerned that she is given up on life. She was given normal saline bolus here in the emergency department. An I did discuss the case with the hospitalist service who agreed to admit the patient. Medication Reconcilliation Current Medication List: was personally reviewed by me Blood Pressure Screening Patient's blood pressure: Normal blood pressure Consults Time Called: 1899 Consulting Physician: Dr. Stephanie SUE Hospitalist Returned Call: 1928 I discussed the patient's case with Dr. Stephanie SUE Hospitalist, he has agreed to evaluate the patient for further management and care. Impression Primary Impression: Bilateral leg pain Additional Impression: Syncope, near Scribe Attestation The scribe's documentation has been prepared under my direction and personally reviewed by me in its entirety. I confirm that the note above accurately reflects all work, treatment, procedures, and medical decision making performed by me. Departure Information Dispostion Being Evaluated By Hospitalist Referrals Alexei Redman M.D. (PCP) Patient Instructions My [facility] Problem Qualifiers
[2018-01-06] MEDS ORDERED: OPTIRAY 320 IV PRN (14:30)
--- NOTE | 2018-01-06 15:45 | DIAGNOSTIC IMAGING REPORT ---
SINGLE VIEW CHEST CLINICAL HISTORY: Generalized weakness. FINDINGS: An AP, portable, upright chest radiograph is compared to study dated 08/31/2017. The examination is degraded by portable technique and patient rotation. The heart is enlarged and there is atherosclerotic calcification of the thoracic aorta. The pulmonary vasculature is noncongested. A cardiac pacing device projects over the right chest. A single lead projects over the atria. The mitral annulus is densely calcified. Chronic interstitial thickening is similar to previous. Trace pleural effusions are suspected. No pneumothorax is seen. The skeletal structures are osteopenic. Advanced arthritic change is noted in the shoulders and thoracic spine. IMPRESSION: 1. Cardiomegaly without radiographic evidence of congestive failure. 2. Suspect trace pleural effusions. Electronically signed by: Juan Galindo M.D. 01/06/2018 3:44 PM Dictated Date/Time: 01/06/2018 3:42 PM
[2018-01-06 16:03] LABS: INFLUENZA B ANTIGEN Neg for Influ B (NEG)
[2018-01-06 16:47] LABS: BASO % 0.3 %; BASO ABS # 0.03 K/uL (0-0.2); EOS % 0.4 %; EOS ABS # 0.04 K/uL (0-0.5); HEMATOCRIT 39.6 % (37-47); IG# 0.02 K/uL (0.00-0.02); LYMPH % 10.4 %; LYMPH ABS # 1.07 K/uL (1.2-3.4); MEAN CORPUSCULAR HEMOGLOBIN 32.2 pg (25-34); MEAN CORPUSCULAR HGB CONC 32.8 g/dl (32-36); MEAN PLATELET VOLUME 9.9 fL (7.4-10.4); MONO % 6.3 %; MONO ABS # 0.65 K/uL (0.11-0.59); NEUT % 82.4 %; NEUT ABS # 8.44 K/uL (1.4-6.5); PLATELET COUNT 175 K/uL (130-400); RED CELL DISTRIBUTION WIDTH CV 13.3 % (11.5-14.5); RED CELL DISTRIBUTION WIDTH SD 47.7 fL (36.4-46.3); WHITE BLOOD COUNT 10.25 K/uL (4.8-10.8)
[2018-01-06 17:04] LABS: ALBUMIN 2.9 gm/dl (3.4-5.0); ALT/SGPT 54 U/L (12-78); BLOOD UREA NITROGEN 21 mg/dl (7-18); CALCIUM 8.5 mg/dl (8.5-10.1); CARBON DIOXIDE 29 mmol/L (21-32); CREATININE 0.67 mg/dl (0.60-1.20); GLUCOSE 95 mg/dl (70-99); POTASSIUM 4.5 mmol/L (3.5-5.1); SODIUM 140 mmol/L (136-145)
[2018-01-06 17:15] LABS: ALKALINE PHOSPHATASE 98 U/L (45-117); AST/SGOT 95 U/L (15-37); CKMB 1.7 ng/ml (0.5-3.6); TOTAL PROTEIN 5.9 gm/dl (6.4-8.2)
--- NOTE | 2018-01-06 17:58 | DIAGNOSTIC IMAGING REPORT ---
HEAD WITHOUT CONTRAST (CT) CT DOSE: 638.56 mGycm HISTORY: Pt c/o Rt leg weakness TECHNIQUE: Multiaxial CT images of the head were performed without the use of intravenous contrast. A dose lowering technique was utilized adhering to the principles of ALARA. Comparison: 09/03/2017 Findings: The paranasal sinuses and mastoid air cells are clear. The calvarium and skull base are intact. The ventricles and sulci are within normal limits. There is no mass, hematoma, midline shift, or acute infarct. Small old left occipital infarct. No acute intracranial hemorrhage. Mild age-related atrophy and chronic small vessel change. Impression: Chronic and age-related change. No acute intracranial abnormality. The above report was generated using voice recognition software. It may contain grammatical, syntax or spelling errors. Electronically signed by: Grant Fabian M.D. 01/06/2018 5:56 PM Dictated Date/Time: 01/06/2018 5:54 PM
--- NOTE | 2018-01-06 18:04 | DIAGNOSTIC IMAGING REPORT ---
ABD/PELVIS IV CONTRAST ONLY CLINICAL HISTORY: 87 years-old Female presenting with Pt c/o diffuse abd pain . TECHNIQUE: Multidetector CT of the abdomen and pelvis was performed after the administration of intravenous contrast. IV contrast: 92 mL of Optiray 320. A dose lowering technique was used consistent with the principles of ALARA (as low as reasonably achievable). COMPARISON: 05/08/2017. CT DOSE (mGy.cm): The estimated cumulative dose is 875.87 mGycm. 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 Partially visualized lead to the right atrium. Lung bases: Dependent consolidation and volume loss of the lower lobes. Right atrium lead noted. Coronary artery, aortic valve, and mitral annular calcification. Mild multichamber enlargement of the heart. Trace bilateral pleural effusions. No pericardial effusion. Liver: Normal morphology. No liver lesion. Patent hepatic vasculature. Biliary: Stable moderate diffuse intrahepatic and marked extrahepatic biliary ductal dilatation. The cystic duct remnant is also dilated as on prior exam. Gallbladder surgically absent. Pancreas: Moderate parenchymal atrophy. Chronic pancreatic ductal dilatation as on prior exams. No mass lesion at the pancreatic head. Spleen: Normal. Adrenal glands: Mild nodular thickening of the adrenal glands, nonspecific. Kidneys and ureters: Prominent lobulations of the kidneys. No focal lesion. No hydronephrosis. No nephrolithiasis. Bladder: Allowing for underdistention, circumferential bladder wall thickening. Pelvic organs: Uterus surgically absent. No adnexal masses. Bowel: Moderate stool burden. Limited diverticulosis of the sigmoid colon. No bowel obstruction. Duodenal diverticulum at the level of the pancreatic head noted. Peritoneal cavity: No free fluid or intraperitoneal gas. Lymph nodes: No enlarged lymph nodes in the abdomen or pelvis. Vasculature: Redemonstration of the infrarenal abdominal aortic aneurysm, which measures up to 4.1 cm in transverse dimension, previously 3.9 cm prominent crescentic mural thrombus or noncalcified atherosclerotic plaque again noted. Ectasia of the aorta at the level of the aortic hiatus also noted, which measures 3.5 cm in diameter, previously 3.4 cm. Infrarenal IVC filter in place with several tines the on the lumen confines. The IVC appears patent. Abdominal wall: Small fat-containing umbilical hernia. Musculoskeletal: Degenerative changes of the spine. Degenerative changes of the pubic symphysis. Postsurgical changes of laminectomies of L2-L5. Osteopenia. IMPRESSION: 1. Circumference of bladder wall thickening could suggest cystitis. Correlate with urinalysis. 2. Stable intrahepatic and extrahepatic biliary ductal dilatation. No obstructing mass or calculus. Potentially this could be due to the presence of the duodenal diverticulum or a benign stricture. This is unchanged from priors. 3. Diverticulosis. 4. Moderate stool burden consistent with constipation. 5. Minimal increased size of the infrarenal abdominal aortic aneurysm, which measures 4.1 cm. Essentially stable ectasia of the aorta at the level of the aortic hiatus, which measures 3.5 cm. Electronically signed by: Hector Cervantes M.D. 01/06/2018 6:03 PM Dictated Date/Time: 01/06/2018 5:54 PM
[2018-01-06] MEDS ORDERED: SODIUM CHLORIDE 0.9% 1000ML 1,000 ML IV STA (18:34)
[2018-01-06] MEDS ORDERED: POLYETHYLENE (MIRALAX) 17 GM PACK PO ONE (20:12)
[2018-01-06] MEDS ORDERED: NSS + 20MEQ KCL 1000ML 1,000 ML IV SCH (20:12)
[2018-01-06] MEDS ORDERED: ACETAMINOPHEN 325 MG TAB PO PRN (20:15)
[2018-01-06] MEDS ORDERED: ALBUT/IPRATROP 3MG/0.5MG NEB 3 ML VIAL INH PRN (20:15)
[2018-01-06] MEDS ORDERED: ACETAMINOPHEN IV 100 ML IV PRN (20:15)
[2018-01-06] MEDS ORDERED: MECLIZINE HCL 25 MG TAB PO PRN (20:15)
[2018-01-06] MEDS ORDERED: FAMOTIDINE IV INJ 20 MG in DEXTROSE 5% 100ML 100 ML IV SCH (20:15)
[2018-01-06] MEDS ORDERED: SOD PHOSPHATE/SOD BIPHOSPHATE ENEMA 132 ML BTL PR PRN (20:15)
[2018-01-06] MEDS ORDERED: ONDANSETRON 8MG OD TAB PO PRN ×2 (20:15→23:45)
[2018-01-06] MEDS ORDERED: FENTANYL 25 MCG/HR TDSY TD SCH (20:15)
[2018-01-06] MEDS ORDERED: ONDANSETRON 4 MG TAB PO PRN (20:15)
[2018-01-06] MEDS ORDERED: ENOXAPARIN 40 MG/0.4 ML SYR SQ SCH (20:15)
[2018-01-06] MEDS ORDERED: KETOROLAC TROMETHAMINE 30 MG/ML VIAL IV PRN (20:30)
[2018-01-06] MEDS ORDERED: ATORVASTATIN 40 MG TAB PO SCH (21:00)
[2018-01-06] MEDS ORDERED: POLYETHYLENE (MIRALAX) 17 GM PACK PO PRN (22:15)
[2018-01-06] MEDS ORDERED: ALUMINUM/MAGNESIUM/SIMETH (MAALOX MAX) 30 ML UDC PO PRN (22:15)
[2018-01-06] MEDS ORDERED: ALBUTEROL HFA 8 GM INHALER INH PRN (22:15)
[2018-01-07] VITALS: BP 127/70; PULSE 97; TEMP 36.4; O2SAT 95
--- NOTE | 2018-01-07 | History and Physical ---
History & Physical Date & Time of Service: Jan 07, 2018 at 00:00. The patient was seen and examined on 01/06/18 Chief Complaint: Ambulatory Dysfunction, Bilateral Leg Pain Primary Care Physician: Alexei Redman M.D. History of Present Illness Source: patient, hospital records The patient is an 87-year-old female who presents to the emergency department with complaint of persistent generalized pain involving her back and legs in particular, and unable to transfer as easily as usual. Her daughter reports that she does not walk without help, and confirms that there is been increased difficulty with transfers that began upon awakening this morning. Patient also reports generalized fatigue to the point of almost passing out, and felt uneasy when she was trying to stand. She has had some intermittent nausea and generalized headache, and then developed intermittent abdominal pain. She reports that she has been admitted for similar symptoms in the past. She has had no recent travels or sick exposures. 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 (5) ESOPHAGEAL REFLUX Status: Resolved (6) HYPERLIPIDEMIA NEC/NOS Status: Resolved (7) HYPERTENSION NOS Status: Resolved (8) OLD MYOCARDIAL INFARCT Status: Resolved (9) PERIPH VASCULAR DIS NOS Status: Resolved (10) Thoracic spinal stenosis Status: Chronic Surgical Problems: (1) S/P laminectomy Status: Resolved Family History Cancer (breast, uterine) Myocardial infarction Parkinson's disease Social History Smoking Status: Never Smoker Smokeless Tobacco Use: No Alcohol Use: none Drug Use: none Marital Status: single Housing status: lives with family Occupational Status: retired Immunizations History of Influenza Vaccine: Unknown History of Tetanus Vaccine?: Unknown History of Pneumococcal: Unknown History of Hepatitis B Vaccine: Unknown Multi-Drug Resistant Organisms History of MDRO: No Allergies Coded Allergies: Adenosine (Verified Allergy, Unknown, "pt not sure had it in er years ago ", 01/06/18) Home Medications Scheduled Amiodarone Hcl (Cordarone), 200 MG PO QAM Aspirin (Aspirin 81), 81 MG PO QAM Atorvastatin (Lipitor), 40 MG PO HS Cholecalciferol (Vitamin D), 2,000 UNITS PO QAM Docusate Sodium (Docusate Sodium), 100 MG PO BID Fentanyl (Fentanyl), 25 MCG TD [id number] Gabapentin (Neurontin), 200 MG PO TID Metoprolol Succinate (Toprol Xl), 12.5 MG PO BID Nitrofurantoin Monohyd Macrocr (Nitrofurantoin Monohydrat), 100 MG PO BID Polyethylene Glycol 3350 (Miralax), 17 GM PO Q2D Zoledronic Acid (Reclast), 5 MG INJ YEARLY Scheduled PRN Acetaminophen (Tylenol), 1,000 MG PO Q6H PRN for Pain Albuterol Hfa (Ventolin Hfa), 2 PUFFS INH Q6H PRN for SOB/Wheezing Meclizine HCl (Meclizine HCl), 12.5 MG PO TID PRN for Dizziness or Vertigo Ondansetron Hcl (Zofran), 4 MG PO PRN PRN for Nausea Review of Systems The patient denies chest pain, palpitations, shortness of breath, dyspnea on exertion, cough, lower extremity swelling, sore throat, fevers, chills, sweats, weight change, vomiting, diarrhea, pelvic pain, blood in urine or stool, dysuria, urinary frequency or urgency, loss of consciousness, rash, abnormal bruising or bleeding, focal weakness, numbness or tingling in arms or legs, or night sweats. The review of systems is otherwise negative other than for that already noted above, and at least 10 systems have been reviewed. Physical Exam Vital Signs Date Time Temp Pulse Resp B/P (MAP) Pulse Ox O2 Delivery O2 Flow Rate FiO2 01/06/18 22:15 64 18 120/50 97 Room Air 01/06/18 20:37 72 14 01/06/18 20:07 71 17 01/06/18 19:37 70 16 01/06/18 19:30 138/56 01/06/18 19:07 68 15 01/06/18 19:02 69 16 01/06/18 19:00 123/51 01/06/18 18:57 137/61 01/06/18 17:35 71 01/06/18 17:34 68 18 113/47 96 Room Air 01/06/18 17:33 113/47 01/06/18 17:32 70 15 01/06/18 17:02 70 17 01/06/18 16:33 71 20 140/70 97 Room Air 01/06/18 16:32 76 16 2/9/18 16:25 140/70 01/06/18 16:02 72 16 01/06/18 15:32 73 19 01/06/18 15:17 143/54 01/06/18 15:16 76 20 143/54 95 Room Air 01/06/18 15:13 131/73 01/06/18 15:11 163/58 01/06/18 15:10 73 163/79 82 163/58 88 131/73 01/06/18 15:02 72 19 01/06/18 14:32 72 18 95 01/06/18 14:02 71 19 90 01/06/18 13:44 69 01/06/18 13:42 93 Room Air 01/06/18 13:39 36.3 77 18 169/45 98 Room Air 01/06/18 13:36 169/45 The patient is awake, alert and oriented x 3. Looks fatigued, normocephalic and atraumatic, lying in bed and otherwise in no acute distress. HEENT--PERRL, EOMI, mucous membranes and oropharynx dry. Neck--supple. No JVD. No bruits. Thyroid normal, trachea midline, no adenopathy. Heart--normal S1 and S2. No murmurs, rubs or gallops. Lungs--clear bilaterally, no respiratory distress, no accessory muscle use. Abdomen--normal bowel sounds and soft. Nontender. Nondistended, no hernias or masses, no organomegaly. Extremities--no cyanosis or clubbing. No edema. There are good distal pulses b/ l. Dermatologic--normal skin turgor, normal color, no abnormal lymph nodes, no rash. Neurologic--cranial nerves II through XII grossly intact. Rheumatologic--normal range of motion. Psychiatric--normal affect. Diagnostics Laboratory Results Results Past 24 Hours Test 01/06/18 15:05 01/06/18 16:21 01/06/18 16:30 Range/Units Influenza Type A Antigen Neg for Influ A NEG Influenza Type B Antigen Neg for Influ B NEG White Blood Count 10.25 4.8-10.8 K/uL Red Blood Count 4.04 4.2-5.4 M/uL Hemoglobin 13.0 12.0-16.0 g/dL Hematocrit 39.6 37-47 % Mean Corpuscular Volume 98.0 80-100 fL Mean Corpuscular Hemoglobin 32.2 25-34 pg Mean Corpuscular Hemoglobin Concent 32.8 32-36 g/dl Platelet Count 175 130-400 K/uL Mean Platelet Volume 9.9 7.4-10.4 fL Neutrophils (%) (Auto) 82.4 % Lymphocytes (%) (Auto) 10.4 % Monocytes (%) (Auto) 6.3 % Eosinophils (%) (Auto) 0.4 % Basophils (%) (Auto) 0.3 % Neutrophils # (Auto) 8.44 1.4-6.5 K/uL Lymphocytes # (Auto) 1.07 1.2-3.4 K/uL Monocytes # (Auto) 0.65 0.11-0.59 K/uL Eosinophils # (Auto) 0.04 0-0.5 K/uL Basophils # (Auto) 0.03 0-0.2 K/uL RDW Standard Deviation 47.7 36.4-46.3 fL RDW Coefficient of Variation 13.3 11.5-14.5 % Immature Granulocyte % (Auto) 0.2 % Immature Granulocyte # (Auto) 0.02 0.00-0.02 K/uL Sodium Level 140 136-145 mmol/L Potassium Level 4.5 3.5-5.1 mmol/L Chloride Level 106 98-107 mmol/L Carbon Dioxide Level 29 21-32 mmol/L Anion Gap 5.0 3-11 mmol/L Blood Urea Nitrogen 21 7-18 mg/dl Creatinine 0.67 0.60-1.20 mg/dl Est Creatinine Clear Calc Drug Dose 54.5 ml/min Estimated GFR () 92.9 Estimated GFR (Non- 80.2 BUN/Creatinine Ratio 30.8 10-20 Random Glucose 95 70-99 mg/dl Calcium Level 8.5 8.5-10.1 mg/dl Total Bilirubin 0.5 0.2-1 mg/dl Direct Bilirubin 0.2 0-0.2 mg/dl Aspartate Amino Transf (AST/SGOT) 95 15-37 U/L Alanine Aminotransferase (ALT/SGPT) 54 12-78 U/L Alkaline Phosphatase 98 45-117 U/L Total Creatine Kinase 55 26-192 U/L Creatine Kinase MB 1.7 0.5-3.6 ng/ml Creatine Kinase MB Ratio 3.1 0-3.0 Troponin I < 0.015 0-0.045 ng/ml Total Protein 5.9 6.4-8.2 gm/dl Albumin 2.9 3.4-5.0 gm/dl Thyroid Stimulating Hormone (TSH) 1.430 0.300-4.500 uIu/ml Urine Color YELLOW Urine Appearance CLEAR CLEAR Urine pH 6.5 4.5-7.5 Urine Specific [place] 1.023 1.000-1.030 Urine Protein NEG NEG Urine Glucose (UA) NEG NEG Urine Ketones NEG NEG Urine Occult Blood NEG NEG Urine Nitrite NEG NEG Urine Bilirubin NEG NEG Urine Urobilinogen NEG NEG Urine Leukocyte Esterase NEG NEG Diagnostic Radiology Patient Name: SANDOR FERGUSON Unit Number: [id number] Dictated: 01/06/181753 Transcribed: 01/06/181753 Printed Date/Time: [~ rep prt dt]/[~ rep prt tm] [~ rep ct labl] - [~ rep ct ivnm] [facility] Radiology Department [place], [place] [id number] Dictated: 01/06/181753 Transcribed: 01/06/181753 MS Printed Date/Time: [~ rep prt dt]/[~ rep prt tm] [~ rep ct labl] - [~ rep ct ivnm] HEAD WITHOUT CONTRAST (CT) CT DOSE: 638.56 mGycm HISTORY: Pt c/o Rt leg weakness TECHNIQUE: Multiaxial CT images of the head were performed without the use of intravenous contrast. A dose lowering technique was utilized adhering to the principles of ALARA. Comparison: 09/03/2017 Findings: The paranasal sinuses and mastoid air cells are clear. The calvarium and skull base are intact. The ventricles and sulci are within normal limits. There is no mass, hematoma, midline shift, or acute infarct. Small old left occipital infarct. No acute intracranial hemorrhage. Mild age-related atrophy and chronic small vessel change. Impression: Chronic and age-related change. No acute intracranial abnormality. The above report was generated using voice recognition software. It may contain grammatical, syntax or spelling errors. Electronically signed by: Grant Fabian M.D. 01/06/2018 5:56 PM Dictated Date/Time: 01/06/2018 5:54 PM The status of this report is Signed. Draft = Not yet reviewed or approved by Radiologist. Signed = Reviewed and approved by Radiologist. <AttendingPhy></AttendingPhy> <FamilyPhy>Alexei Redman M.D.</FamilyPhy> < PrimaryPhy>Alexei Redman M.D.</PrimaryPhy> <UnitNumber>[id number]</UnitNumber > <VisitNumber>[id number]</VisitNumber> <PatientName>SANDOR FERGUSON</ PatientName> <DateOfBirth>1930</DateOfBirth> <Location>C.EDB</Location> < ServiceDate>01/06/18</ServiceDate> <MNE>ESINDI</MNE> <OrderingPhy>Yayo Galindo MD</OrderingPhy> <OrderingPhyMNE>f rep ord dr guillen</OrderingPhyMNE> < DictatingPhyMNE>f rep dict dr guillen</DictatingPhyMNE> <CCListMNE>f rep ct mne</ CCListMNE> <AdmittingPhyMNE>f pt admit dr guillen</AdmittingPhyMNE> <AttendingPhyMNE >f pt attend dr guillen</AttendingPhyMNE> <ConsultingPhyMNE>f pt consult dr guillen</ConsultingPhyMNE> <FamilyPhyMNE>f pt fam dr guillen</FamilyPhyMNE> <OtherPhyMNE>f pt other dr guillen</OtherPhyMNE> < PrimaryPhyMNE>f pt prim care dr guillen</PrimaryPhyMNE> <ReferringPhyMNE>f pt referring dr guillen</ReferringPhyMNE> ABD/PELVIS IV CONTRAST ONLY CLINICAL HISTORY: 87 years-old Female presenting with Pt c/o diffuse abd pain . TECHNIQUE: Multidetector CT of the abdomen and pelvis was performed after the administration of intravenous contrast. IV contrast: 92 mL of Optiray 320. A dose lowering technique was used consistent with the principles of ALARA (as low as reasonably achievable). COMPARISON: 05/08/2017. CT DOSE (mGy.cm): The estimated cumulative dose is 875.87 mGycm. FINDINGS: Clinical Recruiter topogram: IVC filter. Partially visualized lead to the right atrium. Lung bases: Dependent consolidation and volume loss of the lower lobes. Right atrium lead noted. Coronary artery, aortic valve, and mitral annular calcification. Mild multichamber enlargement of the heart. Trace bilateral pleural effusions. No pericardial effusion. Liver: Normal morphology. No liver lesion. Patent hepatic vasculature. Biliary: Stable moderate diffuse intrahepatic and marked extrahepatic biliary ductal dilatation. The cystic duct remnant is also dilated as on prior exam. Gallbladder surgically absent. Pancreas: Moderate parenchymal atrophy. Chronic pancreatic ductal dilatation as on prior exams. No mass lesion at the pancreatic head. Spleen: Normal. Adrenal glands: Mild nodular thickening of the adrenal glands, nonspecific. Kidneys and ureters: Prominent lobulations of the kidneys. No focal lesion. No hydronephrosis. No nephrolithiasis. Bladder: Allowing for underdistention, circumferential bladder wall thickening. Pelvic organs: Uterus surgically absent. No adnexal masses. Bowel: Moderate stool burden. Limited diverticulosis of the sigmoid colon. No bowel obstruction. Duodenal diverticulum at the level of the pancreatic head noted. Peritoneal cavity: No free fluid or intraperitoneal gas. Lymph nodes: No enlarged lymph nodes in the abdomen or pelvis. Vasculature: Redemonstration of the infrarenal abdominal aortic aneurysm, which measures up to 4.1 cm in transverse dimension, previously 3.9 cm prominent crescentic mural thrombus or noncalcified atherosclerotic plaque again noted. Ectasia of the aorta at the level of the aortic hiatus also noted, which measures 3.5 cm in diameter, previously 3.4 cm. Infrarenal IVC filter in place with several tines the on the lumen confines. The IVC appears patent. Abdominal wall: Small fat-containing umbilical hernia. Musculoskeletal: Degenerative changes of the spine. Degenerative changes of the pubic symphysis. Postsurgical changes of laminectomies of L2-L5. Osteopenia. IMPRESSION: 1. Circumference of bladder wall thickening could suggest cystitis. Correlate with urinalysis. 2. Stable intrahepatic and extrahepatic biliary ductal dilatation. No obstructing mass or calculus. Potentially this could be due to the presence of the duodenal diverticulum or a benign stricture. This is unchanged from priors. 3. Diverticulosis. 4. Moderate stool burden consistent with constipation. 5. Minimal increased size of the infrarenal abdominal aortic aneurysm, which measures 4.1 cm. Essentially stable ectasia of the aorta at the level of the ABD/PELVIS IV CONTRAST ONLY CLINICAL HISTORY: 87 years-old Female presenting with Pt c/o diffuse abd pain . TECHNIQUE: Multidetector CT of the abdomen and pelvis was performed after the administration of intravenous contrast. IV contrast: 92 mL of Optiray 320. A dose lowering technique was used consistent with the principles of ALARA (as low as reasonably achievable). COMPARISON: 05/08/2017. CT DOSE (mGy.cm): The estimated cumulative dose is 875.87 mGycm. FINDINGS: Clinical Recruiter topogram: IVC filter. Partially visualized lead to the right atrium. Lung bases: Dependent consolidation and volume loss of the lower lobes. Right atrium lead noted. Coronary artery, aortic valve, and mitral annular calcification. Mild multichamber enlargement of the heart. Trace bilateral pleural effusions. No pericardial effusion. Liver: Normal morphology. No liver lesion. Patent hepatic vasculature. Biliary: Stable moderate diffuse intrahepatic and marked extrahepatic biliary ductal dilatation. The cystic duct remnant is also dilated as on prior exam. Gallbladder surgically absent. Pancreas: Moderate parenchymal atrophy. Chronic pancreatic ductal dilatation as on prior exams. No mass lesion at the pancreatic head. Spleen: Normal. Adrenal glands: Mild nodular thickening of the adrenal glands, nonspecific. Kidneys and ureters: Prominent lobulations of the kidneys. No focal lesion. No hydronephrosis. No nephrolithiasis. Bladder: Allowing for underdistention, circumferential bladder wall thickening. Pelvic organs: Uterus surgically absent. No adnexal masses. Bowel: Moderate stool burden. Limited diverticulosis of the sigmoid colon. No bowel obstruction. Duodenal diverticulum at the level of the pancreatic head noted. Peritoneal cavity: No free fluid or intraperitoneal gas. Lymph nodes: No enlarged lymph nodes in the abdomen or pelvis. Vasculature: Redemonstration of the infrarenal abdominal aortic aneurysm, which measures up to 4.1 cm in transverse dimension, previously 3.9 cm prominent crescentic mural thrombus or noncalcified atherosclerotic plaque again noted. Ectasia of the aorta at the level of the aortic hiatus also noted, which measures 3.5 cm in diameter, previously 3.4 cm. Infrarenal IVC filter in place with several tines the on the lumen confines. The IVC appears patent. Abdominal wall: Small fat-containing umbilical hernia. Musculoskeletal: Degenerative changes of the spine. Degenerative changes of the pubic symphysis. Postsurgical changes of laminectomies of L2-L5. Osteopenia. IMPRESSION: 1. Circumference of bladder wall thickening could suggest cystitis. Correlate with urinalysis. 2. Stable intrahepatic and extrahepatic biliary ductal dilatation. No obstructing mass or calculus. Potentially this could be due to the presence of the duodenal diverticulum or a benign stricture. This is unchanged from priors. 3. Diverticulosis. 4. Moderate stool burden consistent with constipation. 5. Minimal increased size of the infrarenal abdominal aortic aneurysm, which measures 4.1 cm. Essentially stable ectasia of the aorta at the level of the Patient Name: SANDOR FERGUSON Unit Number: [id number] Dictated: 01/06/181541 Transcribed: 01/06/181541 EV Printed Date/Time: [~ rep prt dt]/[~ rep prt tm] [~ rep ct labl] - [~ rep ct ivnm] [facility] Radiology Department [place] [id number] Dictated: 01/06/181541 Transcribed: 01/06/181541 EV Printed Date/Time: [~ rep prt dt]/[~ rep prt tm] [~ rep ct labl] - [~ rep ct ivnm] SINGLE VIEW CHEST CLINICAL HISTORY: Generalized weakness. FINDINGS: An AP, portable, upright chest radiograph is compared to study dated 08/31/2017. The examination is degraded by portable technique and patient rotation. The heart is enlarged and there is atherosclerotic calcification of the thoracic aorta. The pulmonary vasculature is noncongested. A cardiac pacing device projects over the right chest. A single lead projects over the atria. The mitral annulus is densely calcified. Chronic interstitial thickening is similar to previous. Trace pleural effusions are suspected. No pneumothorax is seen. The skeletal structures are osteopenic. Advanced arthritic change is noted in the shoulders and thoracic spine. IMPRESSION: 1. Cardiomegaly without radiographic evidence of congestive failure. 2. Suspect trace pleural effusions. Electronically signed by: Juan Galindo M.D. 01/06/2018 3:44 PM Dictated Date/Time: 01/06/2018 3:42 PM The status of this report is Signed. Draft = Not yet reviewed or approved by Radiologist. Signed = Reviewed and approved by Radiologist. <AttendingPhy></AttendingPhy> <FamilyPhy>Alexei Redman M.D.</FamilyPhy> < PrimaryPhy>Alexei Redman M.D.</PrimaryPhy> <UnitNumber>[id number]</UnitNumber > <VisitNumber>[id number]</VisitNumber> <PatientName>SANDOR FERGUSON</ PatientName> <DateOfBirth>1930</DateOfBirth> <Location>C.EDB</Location> < ServiceDate>01/06/18</ServiceDate> <MNE>ESINDI</MNE> <OrderingPhy>Yayo Galindo MD</OrderingPhy> <OrderingPhyMNE>f rep ord dr guillen</OrderingPhyMNE> < DictatingPhyMNE>f rep dict dr guillen</DictatingPhyMNE> <CCListMNE>f rep ct calrke</ CCListMNE> <AdmittingPhyMNE>f pt admit dr guillen</AdmittingPhyMNE> <AttendingPhyMNE >f pt attend dr guillen</AttendingPhyMNE> <ConsultingPhyMNE>f pt consult dr guillen</ConsultingPhyMNE> <FamilyPhyMNE>f pt fam dr guillen</FamilyPhyMNE> <OtherPhyMNE>f pt other dr guillen</OtherPhyMNE> < PrimaryPhyMNE>f pt prim care dr guillen</PrimaryPhyMNE> <ReferringPhyMNE>f pt referring dr guillen</ReferringPhyMNE> EKG EKG shows normal sinus rhythm at 71 bpm, there are no acute ST-T changes. Impression Assessment and Plan Near syncope/generalized fatigue and arthralgias/bilateral lower extremity pain/ ambulatory dysfunction-- Unclear etiology at this time. Primarily looks dehydrated. No signs of infection Place on IV fluids. Consult PT/OT/public health social worker More aggressive bowel regimen with MiraLAX and fleets enema Repeat laboratories in the a.m. Follow cultures Atrial fibrillation/hypertension/old myocardial infarction-- Continue amiodarone 200 mg every morning, aspirin 81 mg every morning, metoprolol succinate 12.5 mg p.o. twice daily Chronic pain syndrome with acute worsening-- Continue fentanyl patch 25 mcg every 72 hours, and gabapentin 200 mg p.o. 3 times daily Hyperlipidemia-- Continue atorvastatin 40 mg p.o. at bedtime Hold nitrofurantoin Level of Care Med/Surg Advanced Directives Existing Advance Directive: No Existing Living Will: No Existing Power of Switcher: No Resuscitation Status FULL RESUSCITATION VTE Prophylaxis VTE Risk Assessment Done? Y/N: Yes Risk Level: High Given or contraindicated: Unfractionated heparin SQ, SCD's
[2018-01-07 00:15] VITALS: BP 127/70; PULSE 63; TEMP 36.4; O2SAT 95; Ht 157.5 cm; Wt 65.4 kg
[2018-01-07] MEDS: NSS + 20MEQ KCL 1000ML 1,000 ML IV SCH ×3 (01:15→19:42)
[2018-01-07] MEDS: GABAPENTIN 100 MG CAP PO SCH ×4 (01:18→19:43)
[2018-01-07] MEDS: DOCUSATE SODIUM 100 MG CAP PO SCH ×3 (01:18→19:43)
[2018-01-07] MEDS: METOPROLOL SUCC 25MG EXT REL TAB PO SCH ×4 (01:20→22:23)
[2018-01-07 07:17] VITALS: BP 153/74; PULSE 59; TEMP 36.7; O2SAT 96
[2018-01-07 07:49] LABS: BASO % 0.4 %; BASO ABS # 0.02 K/uL (0-0.2); EOS % 3.8 %; EOS ABS # 0.19 K/uL (0-0.5); HEMATOCRIT 36.1 % (37-47); HEMOGLOBIN 11.7 g/dL (12.0-16.0); IG# 0.01 K/uL (0.00-0.02); LYMPH % 32.9 %; LYMPH ABS # 1.63 K/uL (1.2-3.4); MEAN CELL VOLUME 98.6 fL (80-100); MEAN CORPUSCULAR HGB CONC 32.4 g/dl (32-36); MONO % 10.9 %; MONO ABS # 0.54 K/uL (0.11-0.59); NEUT % 51.8 %; NEUT ABS # 2.57 K/uL (1.4-6.5); PLATELET COUNT 170 K/uL (130-400); RED CELL DISTRIBUTION WIDTH CV 13.8 % (11.5-14.5); RED CELL DISTRIBUTION WIDTH SD 49.5 fL (36.4-46.3); WHITE BLOOD COUNT 4.96 K/uL (4.8-10.8)
[2018-01-07] MEDS: FENTANYL PATCH REMOVE & WASTE SCH (07:59)
[2018-01-07 08:04] LABS: PTT PATIENT 24.5 SECONDS (21.0-31.0)
[2018-01-07 08:19] LABS: ALBUMIN 2.5 gm/dl (3.4-5.0); CALCIUM 8.2 mg/dl (8.5-10.1); CREATININE 0.65 mg/dl (0.60-1.20); POTASSIUM 4.5 mmol/L (3.5-5.1)
[2018-01-07 08:21] LABS: TOTAL PROTEIN 5.4 gm/dl (6.4-8.2)
[2018-01-07] MEDS: AMIODARONE 200 MG TAB PO SCH (08:38)
[2018-01-07] MEDS: CHOLECALCIFEROL 1000 INTER.UNIT TAB PO SCH (08:39)
[2018-01-07] MEDS: CHECK FENTANYL PATCH PLACEMENT SCH ×2 (08:42→16:00)
[2018-01-07] MEDS: FENTANYL 25 MCG/HR TDSY TD SCH (08:44)
[2018-01-07] MEDS: HEPARIN SOD 5000 UNIT/0.5 ML CARP SQ SCH ×2 (08:51→19:45)
[2018-01-07] MEDS ORDERED: POLYETHYLENE (MIRALAX) 17 GM PACK PO SCH (09:00)
--- NOTE | 2018-01-07 09:14 | Hospitalist Progress Note ---
Hospitalist Progress Note Date of Service Jan 07, 2018. (Daniella Miller PA-C) Subjective Pt evaluation today including: conversation w/ patient, physical exam, chart review, lab review, review of studies Pain: Mild abd pain PO Intake: Fair Voiding: no voiding problems The patient was seen and examined this morning. Pt reports doing ok this morning , she feels fatigued although slept well overnight. She is requiring extra assistance with getting to standing position, and understands PT/OT will be coming to see her for possible rehab recommendations. She is agreeable to rehab and has considered [facility]. She refuses to go to [facility] from a previous stay >1 yr ago where she experienced a fall. Pt from home, lives with daughter Tati who is her primary acute care nurse practitioner 20/06. Daughter works 3d/wk for 8hr shifts overnight. Pt feels safe, has bedside commode if needed. Pt last BM was > 3 days ago. She has taken MOM this morning. Encouraged her to drink more fluids, eat more fruits/vegetables. She is having some mild LLQ and RLQ abdominal pain with palpation. ROS: 6 point ROS reviewed and otherwise negative. (Daniella Miller, RC) Objective Vital Signs Date Time Temp Pulse Resp B/P (MAP) Pulse Ox O2 Delivery O2 Flow Rate FiO2 01/07/18 07:17 36.7 59 18 153/74 (100) 96 Room Air 01/07/18 00:15 36.4 63 18 127/70 95 Room Air 01/07/18 00:00 36.4 97 18 127/70 (89) 95 Room Air 01/06/18 22:15 64 18 120/50 97 Room Air 01/06/18 20:37 72 14 01/06/18 20:07 71 17 01/06/18 19:37 70 16 01/06/18 19:30 138/56 01/06/18 19:07 68 15 01/06/18 19:02 69 16 01/06/18 19:00 123/51 01/06/18 18:57 137/61 01/06/18 17:35 71 01/06/18 17:34 68 18 113/47 96 Room Air 01/06/18 17:33 113/47 01/06/18 17:32 70 15 01/06/18 17:02 70 17 01/06/18 16:33 71 20 140/70 97 Room Air 01/06/18 16:32 76 16 01/06/18 16:25 140/70 01/06/18 16:02 72 16 01/06/18 15:32 73 19 01/06/18 15:17 143/54 01/06/18 15:16 76 20 143/54 95 Room Air 01/06/18 15:13 131/73 01/06/18 15:11 163/58 01/06/18 15:10 73 163/79 82 163/58 88 131/73 01/06/18 15:02 72 19 01/06/18 14:32 72 18 95 01/06/18 14:02 71 19 90 01/06/18 13:44 69 01/06/18 13:42 93 Room Air 01/06/18 13:39 36.3 77 18 169/45 98 Room Air 01/06/18 13:36 169/45 (Daniella Miller PA-C) Physical Exam General Appearance: WD/WN, no apparent distress Eyes: PERRL, EOMI ENT: hearing grossly normal, pharynx normal Neck: supple, no JVD Respiratory/Chest: lungs clear, no respiratory distress, no accessory muscle use Cardiovascular: regular rate, rhythm, no JVD, no murmur Abdomen: normal bowel sounds, soft, + tenderness (LLQ and RLQ with light palpation) Extremities: non-tender, no calf tenderness, + pertinent finding (mild nonpitting pedal edema) Neurologic/Psychiatric: alert, normal mood/affect, oriented x 3 Skin: normal color, warm/dry (Daniella Miller PA-C) Laboratory Results Last 24 Hours Test 01/06/18 15:05 01/06/18 15:19 01/06/18 16:21 01/06/18 16:30 Influenza Type A Antigen Neg for Influ A Influenza Type B Antigen Neg for Influ B Bedside Glucose 88 mg/dl White Blood Count 10.25 K/uL Red Blood Count 4.04 M/uL Hemoglobin 13.0 g/dL Hematocrit 39.6 % Mean Corpuscular Volume 98.0 fL Mean Corpuscular Hemoglobin 32.2 pg Mean Corpuscular Hemoglobin Concent 32.8 g/dl Platelet Count 175 K/uL Mean Platelet Volume 9.9 fL Neutrophils (%) (Auto) 82.4 % Lymphocytes (%) (Auto) 10.4 % Monocytes (%) (Auto) 6.3 % Eosinophils (%) (Auto) 0.4 % Basophils (%) (Auto) 0.3 % Neutrophils # (Auto) 8.44 K/uL Lymphocytes # (Auto) 1.07 K/uL Monocytes # (Auto) 0.65 K/uL Eosinophils # (Auto) 0.04 K/uL Basophils # (Auto) 0.03 K/uL RDW Standard Deviation 47.7 fL RDW Coefficient of Variation 13.3 % Immature Granulocyte % (Auto) 0.2 % Immature Granulocyte # (Auto) 0.02 K/uL Sodium Level 140 mmol/L Potassium Level 4.5 mmol/L Chloride Level 106 mmol/L Carbon Dioxide Level 29 mmol/L Anion Gap 5.0 mmol/L Blood Urea Nitrogen 21 mg/dl Creatinine 0.67 mg/dl Est Creatinine Clear Calc Drug Dose 54.5 ml/min Estimated GFR () 92.9 Estimated GFR (Non- 80.2 BUN/Creatinine Ratio 30.8 Random Glucose 95 mg/dl Calcium Level 8.5 mg/dl Total Bilirubin 0.5 mg/dl Direct Bilirubin 0.2 mg/dl Aspartate Amino Transf (AST/SGOT) 95 U/L Alanine Aminotransferase (ALT/SGPT) 54 U/L Alkaline Phosphatase 98 U/L Total Creatine Kinase 55 U/L Creatine Kinase MB 1.7 ng/ml Creatine Kinase MB Ratio 3.1 Troponin I < 0.015 ng/ml Total Protein 5.9 gm/dl Albumin 2.9 gm/dl Thyroid Stimulating Hormone (TSH) 1.430 uIu/ml Urine Color YELLOW Urine Appearance CLEAR Urine pH 6.5 Urine Specific [place] 1.023 Urine Protein NEG Urine Glucose (UA) NEG Urine Ketones NEG Urine Occult Blood NEG Urine Nitrite NEG Urine Bilirubin NEG Urine Urobilinogen NEG Urine Leukocyte Esterase NEG Test 01/07/18 07:10 White Blood Count 4.96 K/uL Red Blood Count 3.66 M/uL Hemoglobin 11.7 g/dL Hematocrit 36.1 % Mean Corpuscular Volume 98.6 fL Mean Corpuscular Hemoglobin 32.0 pg Mean Corpuscular Hemoglobin Concent 32.4 g/dl Platelet Count 170 K/uL Mean Platelet Volume 10.0 fL Neutrophils (%) (Auto) 51.8 % Lymphocytes (%) (Auto) 32.9 % Monocytes (%) (Auto) 10.9 % Eosinophils (%) (Auto) 3.8 % Basophils (%) (Auto) 0.4 % Neutrophils # (Auto) 2.57 K/uL Lymphocytes # (Auto) 1.63 K/uL Monocytes # (Auto) 0.54 K/uL Eosinophils # (Auto) 0.19 K/uL Basophils # (Auto) 0.02 K/uL RDW Standard Deviation 49.5 fL RDW Coefficient of Variation 13.8 % Immature Granulocyte % (Auto) 0.2 % Immature Granulocyte # (Auto) 0.01 K/uL Prothrombin Time 10.7 SECONDS Prothromb Time International Ratio 1.0 Activated Partial Thromboplast Time 24.5 SECONDS Partial Thromboplastin Ratio 0.9 Sodium Level 141 mmol/L Potassium Level 4.5 mmol/L Chloride Level 108 mmol/L Carbon Dioxide Level 27 mmol/L Anion Gap 7.0 mmol/L Blood Urea Nitrogen 19 mg/dl Creatinine 0.65 mg/dl Est Creatinine Clear Calc Drug Dose 56.2 ml/min Estimated GFR () 93.8 Estimated GFR (Non- 81.0 BUN/Creatinine Ratio 28.8 Random Glucose 79 mg/dl Calcium Level 8.2 mg/dl Magnesium Level 2.0 mg/dl Total Bilirubin 0.4 mg/dl Direct Bilirubin 0.1 mg/dl Aspartate Amino Transf (AST/SGOT) 77 U/L Alanine Aminotransferase (ALT/SGPT) 64 U/L Alkaline Phosphatase 105 U/L Total Protein 5.4 gm/dl Albumin 2.5 gm/dl (Daniella Miller PA-C) Assessment and Plan 87 yo F with 87 y/o female with a history of HTN, HLD, CVA, CAD, h/o MD s/p stent to LAD in 2006, paroxysmal a-fib, h/o SVT s/p pacemaker, AAA, chronic pain , polyneuropathy, asthma, and GERD presented with persistent generalized pain involving her back and legs in particular, and unable to transfer as easily as usual, generalized fatigue, intermittent nausea and generalized headache, and then developed intermittent abdominal pain. Generalized fatigue and arthralgias Ambulatory dysfunction Constipation - Appears constipation x 3 days and dehydration primarily affecting her status. Stool burden seen on CT. Pt had enema last evening without results, on stool softeners and has taken MOM this morning. - Abdominal pain - monitor to see if improves with BM. - Continue NSS + Kcl at 100ml/hr and encourage oral hydration. - PT/OT on board - CM to assist with d/c planning - pt agreeable to [facility] Paroxysmal Atrial fibrillation HTN Hx MD h/o SVT--pacemaker in place - Continue amiodarone 200 mg every morning, aspirin 81 mg every morning, metoprolol succinate 12.5 mg p.o. twice daily Hx infrarenal AAA measures 4.1 cm. - As per CT slightly larger than last fall - Follows with Dr. Mathew as an outpt. Chronic pain syndrome - Continue fentanyl patch 25 mcg every 72 hours, and gabapentin 200 mg p.o. 3 times daily Hyperlipidemia- Continue atorvastatin 40 mg p.o. at bedtime ? UTI - UA is clean, however pt smells of urine, she reports some difficulty with incontinence/ initiation of urination intermittently today. Will ask for a repeat UA and Cx if indicated. - Pt has outpatient prn Rx of nitrofurantoin but has not used this recently. GERD - Cont protonix 40 mg QAM HLD - Continue Lipitor 40 mg PO qd Paroxysmal a-fib, - Continue amiodarone 200 mg PO qd Chronic pain - Continue fentanyl 25 mcg TD q72h. Polyneuropathy - Continue gabapentin 200 mg PO TID Asthma - Continue albuterol inhaler prn SOB/wheezing Code Status: FULL DVT ppx: heparin subq CODE STATUS: FULL CODE Disposition: From home, to assist with d/c planning. Daughter was updated at bedside and all her questions and concerns were addressed. (Daniella Miller, AMILCARC) PA Physician Supervision Note: I interviewed and examined the patient. Discussed with Daniella Miller PAC and agree with findings and plan as documented in the note. Any exceptions or clarifications are listed here: None Patient is seen and appearing much more comfortable after hydration vital signs are stable although she does have some mild lower heart rates at times Physical exam shows normal active bowel sounds and soft CT scan noted to show moderate stool burden possible thickening of the bladder although urinalysis is unrevealing We'll continue to hydrate as she is clinically dehydrated increase her stool regimen to promote bowel movements ever evaluated for subacute rehabilitation as is the wishes of her in her daughter she feels too weak to go home level formal PT OT evaluation Documented By: Alexy Mancera (Alexy Mancera M.D.)
[2018-01-07] MEDS: MAGNESIUM HYDROXIDE SUSP 30 ML UDC PO PRN (10:03)
[2018-01-07] MEDS ORDERED: PANTOprazole INJ 40 MG in SYRINGE 0 ML IV SCH (11:00)
[2018-01-07 15:12] VITALS: BP 117/68; PULSE 52; TEMP 36.5; O2SAT 98
[2018-01-07] MEDS: ATORVASTATIN 40 MG TAB PO SCH (19:44)
[2018-01-07 23:01] VITALS: PULSE 61; TEMP 36.3; O2SAT 96
[2018-01-08] VITALS (9 sets, daily range): BP systolic 105–210; BP diastolic 52–86; PULSE 59–79; TEMP 36.6–36.9; O2SAT 94–99
[2018-01-08] MEDS: CHECK FENTANYL PATCH PLACEMENT SCH ×4 (00:11→23:46)
[2018-01-08] MEDS: HydrALAZINE HCL 20 MG/ML VIAL IV. PRN ×2 (00:11→04:54)
[2018-01-08] MEDS: NSS + 20MEQ KCL 1000ML 1,000 ML IV SCH (05:34)
[2018-01-08 06:57] LABS: BASO % 0.4 %; BASO ABS # 0.03 K/uL (0-0.2); EOS % 3.5 %; EOS ABS # 0.24 K/uL (0-0.5); HEMATOCRIT 37.8 % (37-47); HEMOGLOBIN 12.3 g/dL (12.0-16.0); IG# 0.01 K/uL (0.00-0.02); LYMPH % 20.7 %; LYMPH ABS # 1.41 K/uL (1.2-3.4); MEAN CELL VOLUME 98.2 fL (80-100); MEAN CORPUSCULAR HEMOGLOBIN 31.9 pg (25-34); MEAN CORPUSCULAR HGB CONC 32.5 g/dl (32-36); MEAN PLATELET VOLUME 9.8 fL (7.4-10.4); MONO % 10.1 %; MONO ABS # 0.69 K/uL (0.11-0.59); NEUT % 65.2 %; NEUT ABS # 4.43 K/uL (1.4-6.5); PLATELET COUNT 163 K/uL (130-400); RED CELL DISTRIBUTION WIDTH CV 13.6 % (11.5-14.5); RED CELL DISTRIBUTION WIDTH SD 48.7 fL (36.4-46.3); WHITE BLOOD COUNT 6.81 K/uL (4.8-10.8)
[2018-01-08 07:08] LABS: PTT PATIENT 25.4 SECONDS (21.0-31.0)
[2018-01-08 07:41] LABS: ALBUMIN 2.8 gm/dl (3.4-5.0); CALCIUM 8.4 mg/dl (8.5-10.1); CREATININE 0.56 mg/dl (0.60-1.20); POTASSIUM 4.1 mmol/L (3.5-5.1)
[2018-01-08 07:44] LABS: TOTAL PROTEIN 6.1 gm/dl (6.4-8.2)
[2018-01-08] MEDS: DOCUSATE SODIUM 100 MG CAP PO SCH ×2 (08:01→20:38)
[2018-01-08] MEDS: CHOLECALCIFEROL 1000 INTER.UNIT TAB PO SCH (08:01)
[2018-01-08] MEDS: AMIODARONE 200 MG TAB PO SCH (08:02)
[2018-01-08] MEDS: METOPROLOL SUCC 25MG EXT REL TAB PO SCH ×2 (08:02→20:37)
[2018-01-08] MEDS: GABAPENTIN 100 MG CAP PO SCH ×3 (08:02→20:38)
[2018-01-08] MEDS: ASPIRIN 81 MG ECTAB PO SCH (08:02)
[2018-01-08] MEDS: HEPARIN SOD 5000 UNIT/0.5 ML CARP SQ SCH ×2 (08:07→20:37)
--- NOTE | 2018-01-08 11:23 | Hospitalist Progress Note ---
Hospitalist Progress Note Date of Service Jan 08, 2018. (Daniella Miller PA-C) Subjective Pt evaluation today including: conversation w/ patient, physical exam, chart review, lab review, review of studies Pain: RLQ pain PO Intake: Poor Voiding: no voiding problems The patient was seen and examined this morning. Pt reports feeling awful today. She has a generalized sense that she described as "overall feeling bad, and at one point I thought I was going to ". She is unable to pinpoint one exact complaint that is making things worse. Her abdominal pain is generalized and feels about the same overall to her. She is more tender in the RLQ today however, and is feeling nauseous. She was unable to tolerate any breakfast. She denies fever, chills or sweats, chest pain, shortness of breath. She reports not sleeping much overnight due to having to get up and urinate multiple times. She has had 2 large formed bowel movements since yesterday, but then had 2 loose bowel movements overnight as well. Discussion was held regarding her not feeling well overall- she reports her daughter has very different ideas regarding end of life care, and that she does not like to discuss in general. She has a medical POA from Alma Stallings, and is actually coming to visit her today. She feels that she would not want to be resuscitated if there would not be a good outcome, and she is adamant that she would not want any type of life support. She plans to discuss this more with Alma once she arrives. Constitutional: + weakness, + fatigue, No fever, No chills, No sweats Eyes: No redness, No diplopia ENT: + trouble swallowing, + problem reported (dry mouth), No nasal symptoms Respiratory: No cough, No sputum, No shortness of breath, No dyspnea on exertion Cardiovascular: No chest pain, No edema, No palpitations Abdomen: + pain, + nausea, No vomiting Musculoskeletal: No muscle pain, No swelling, No calf pain Female : No dysuria Psychiatric: + depression symptoms, + anxiety Endo: + fatigue (Daniella Miller PA-C) Objective Vital Signs Date Time Temp Pulse Resp B/P (MAP) Pulse Ox O2 Delivery O2 Flow Rate FiO2 01/08/18 08:17 36.6 65 20 171/70 (103) 99 Room Air 01/08/18 08:00 99 Room Air 01/08/18 03:37 60 185/66 (105) 01/08/18 00:48 183/78 (113) 01/08/18 00:05 65 210/86 (127) 01/08/18 00:00 Room Air 01/07/18 23:01 36.3 61 20 96 Room Air 01/07/18 20:00 Room Air 01/07/18 16:00 Room Air 01/07/18 15:12 36.5 52 16 117/68 (84) 98 Room Air (Daniella Miller PA-C) Physical Exam General Appearance: WD/WN, + mild distress Eyes: PERRL, EOMI ENT: hearing grossly normal, + pertinent finding (MMD) Neck: supple, no JVD Respiratory/Chest: lungs clear, no respiratory distress, no accessory muscle use Cardiovascular: regular rate, rhythm, no JVD, no murmur Abdomen: normal bowel sounds, soft, + tenderness, + pertinent finding ( significant RLQ pain with light palpation, mild LLQ pain with palpation) Extremities: non-tender, no calf tenderness, + pedal edema (1+ pitting edema) Neurologic/Psychiatric: alert, oriented x 3, + pertinent finding (affect is depressed today, +tearful at times) Skin: normal color, warm/dry (Daniella Miller, PA-C) Laboratory Results Last 24 Hours Test 01/07/18 20:39 01/08/18 06:36 Urine Color YELLOW Urine Appearance CLEAR Urine pH 5.5 Urine Specific [place] 1.011 Urine Protein NEG Urine Glucose (UA) NEG Urine Ketones NEG Urine Occult Blood NEG Urine Nitrite NEG Urine Bilirubin NEG Urine Urobilinogen NEG Urine Leukocyte Esterase NEG White Blood Count 6.81 K/uL Red Blood Count 3.85 M/uL Hemoglobin 12.3 g/dL Hematocrit 37.8 % Mean Corpuscular Volume 98.2 fL Mean Corpuscular Hemoglobin 31.9 pg Mean Corpuscular Hemoglobin Concent 32.5 g/dl Platelet Count 163 K/uL Mean Platelet Volume 9.8 fL Neutrophils (%) (Auto) 65.2 % Lymphocytes (%) (Auto) 20.7 % Monocytes (%) (Auto) 10.1 % Eosinophils (%) (Auto) 3.5 % Basophils (%) (Auto) 0.4 % Neutrophils # (Auto) 4.43 K/uL Lymphocytes # (Auto) 1.41 K/uL Monocytes # (Auto) 0.69 K/uL Eosinophils # (Auto) 0.24 K/uL Basophils # (Auto) 0.03 K/uL RDW Standard Deviation 48.7 fL RDW Coefficient of Variation 13.6 % Immature Granulocyte % (Auto) 0.1 % Immature Granulocyte # (Auto) 0.01 K/uL Prothrombin Time 10.3 SECONDS Prothromb Time International Ratio 1.0 Activated Partial Thromboplast Time 25.4 SECONDS Partial Thromboplastin Ratio 1.0 Sodium Level 141 mmol/L Potassium Level 4.1 mmol/L Chloride Level 110 mmol/L Carbon Dioxide Level 24 mmol/L Anion Gap 7.0 mmol/L Blood Urea Nitrogen 18 mg/dl Creatinine 0.56 mg/dl Est Creatinine Clear Calc Drug Dose 65.2 ml/min Estimated GFR () 98.5 Estimated GFR (Non- 85.0 BUN/Creatinine Ratio 31.7 Random Glucose 97 mg/dl Calcium Level 8.4 mg/dl Magnesium Level 2.2 mg/dl Total Bilirubin 0.4 mg/dl Direct Bilirubin 0.1 mg/dl Aspartate Amino Transf (AST/SGOT) 53 U/L Alanine Aminotransferase (ALT/SGPT) 59 U/L Alkaline Phosphatase 114 U/L Total Protein 6.1 gm/dl Albumin 2.8 gm/dl (Daniella Miller PA-C) Assessment and Plan 87 yo F with 87 y/o female with a history of HTN, HLD, CVA, CAD, h/o [place] s/p stent to LAD in 2006, paroxysmal a-fib, h/o SVT s/p pacemaker, AAA, chronic pain , polyneuropathy, asthma, and GERD presented with persistent generalized pain involving her back and legs in particular, and unable to transfer as easily as usual, generalized fatigue, intermittent nausea and generalized headache, and then developed intermittent abdominal pain. Generalized fatigue and arthralgias Ambulatory dysfunction Constipation - Appears constipation x 3 days and dehydration primarily affecting her status. Stool burden seen on CT- Pt had 2 large bowel movements after MOM and stool softeners yesterday, she is now having some loose bowels x 2. - Abdomial pain is localizing to the RLQ. CT abd/pelvis w IV contrast from 01/[address] Rankin today via the phone as there is slight concern for appendicitis with increase RLQ pain, nausea , "impending doom". He reads the appendix as normal without enlargement. Will check a CT abd/pelvis PO contrast only to further eval the appendix. - Will dc NSS + Kcl at 100ml/hr and encourage oral hydration as pt feels she did not sleep due to frequent urination, and she is slightly edematous in her LE. - PT/OT on board Paroxysmal Atrial fibrillation HTN Hx IA h/o SVT--pacemaker in place - Continue amiodarone 200 mg every morning, aspirin 81 mg every morning, metoprolol succinate 12.5 mg p.o. twice daily Hx infrarenal AAA measures 4.1 cm. - As per CT slightly larger than last fall - Follows with Dr. Mathew as an outpt. Chronic pain syndrome - Continue fentanyl patch 25 mcg every 72 hours, and gabapentin 200 mg p.o. 3 times daily Hyperlipidemia- Continue atorvastatin 40 mg p.o. at bedtime ? UTI - UA is clean, however pt smells of urine, she reports some difficulty with incontinence/ initiation of urination intermittently today. Will ask for a repeat UA and Cx if indicated. - Pt has outpatient prn Rx of nitrofurantoin but has not used this recently. GERD - Cont protonix 40 mg QAM HLD - Continue Lipitor 40 mg PO qd Paroxysmal a-fib, - Continue amiodarone 200 mg PO qd Chronic pain - Continue fentanyl 25 mcg TD q72h. Polyneuropathy - Continue gabapentin 200 mg PO TID Asthma - Continue albuterol inhaler prn SOB/wheezing Code Status: FULL DVT ppx: heparin subq CODE STATUS: FULL CODE - discussion held regarding goals of care. Pt plans to further discuss with her medical POA, Alma, who will be visiting her today. Disposition: From home, CM to assist with d/c planning. (Daniella Miller, RC) PA Physician Supervision Note: I interviewed and examined the patient. Discussed with Daniella Miller PAC and agree with findings and plan as documented in the note. Any exceptions or clarifications are listed here: None Patient is seen and now complains of focal right lower abdominal pain, initial CT abdomen was without contrast will have CT with oral contrast today Physical exam shows normal active bowel sounds but lower quadrant pain, no rebound no fever We'll plan on repeating CT scan of her abdomen to evaluate for appendicitis, when necessary pain medication continue to work on stool cathartics will send urine culture (Alexy Mancera M.D.) (Alexy Mancera M.D.)
--- NOTE | 2018-01-08 14:54 | DIAGNOSTIC IMAGING REPORT ---
ABD/PELVIS ORAL CONT ONLY CT DOSE: 326.95 mGy.cm HISTORY: Right flank pain Assess appendix, ?appendicitis TECHNIQUE: Multiaxial CT images of the abdomen and pelvis were performed following the use of oral contrast. A dose lowering technique was utilized adhering to the principles of ALARA. COMPARISON STUDY: 01/06/2018 FINDINGS: small left basilar pleural effusion with mild left basilar atelectasis. Trace pleural fluid right base. Prior cholecystectomy. Mild chronic bladder ductal prominence. Kidneys negative for calcification or hydronephrosis. Aneurysmal dilatation of the abdominal aorta is unchanged from the prior study. There continues to be a considerable increase in fecal load throughout the colon. This is most prominent involving the cecum and a sending region are the appendix is identified and appears to be normal. Slight generalized gastric wall thickening which is most likely technical. Nonobstructive bowel pattern throughout. No evidence for pneumatosis or free air. IMPRESSION: 1. Small left and to a lesser extent right basilar pleural effusion. 2. Normal appendix. 3. Persistent increase in fecal load throughout the bulk of the colon consistent with fecal stasis. 4. No evidence for bowel obstructive change or free air. 5. Stable aneurysmal dilatation of the abdominal aorta. The above report was generated using voice recognition software. It may contain grammatical, syntax or spelling errors. Electronically signed by: Grant Fabian M.D. 01/08/2018 2:53 PM Dictated Date/Time: 01/08/2018 2:49 PM
[2018-01-08] MEDS: ATORVASTATIN 40 MG TAB PO SCH (20:38)
[2018-01-09] MEDS: ACETAMINOPHEN 325 MG TAB PO PRN ×2 (02:59→11:05)
[2018-01-09 07:05] VITALS: BP 120/64; PULSE 51; TEMP 36.4; O2SAT 99
[2018-01-09 07:49] LABS: BASO % 0.7 %; BASO ABS # 0.04 K/uL (0-0.2); EOS ABS # 0.35 K/uL (0-0.5); HEMATOCRIT 36.5 % (37-47); HEMOGLOBIN 11.9 g/dL (12.0-16.0); IG# 0.01 K/uL (0.00-0.02); LYMPH % 22.9 %; LYMPH ABS # 1.34 K/uL (1.2-3.4); MEAN CELL VOLUME 98.6 fL (80-100); MEAN CORPUSCULAR HEMOGLOBIN 32.2 pg (25-34); MEAN CORPUSCULAR HGB CONC 32.6 g/dl (32-36); MEAN PLATELET VOLUME 9.8 fL (7.4-10.4); MONO % 12.5 %; MONO ABS # 0.73 K/uL (0.11-0.59); NEUT % 57.7 %; NEUT ABS # 3.38 K/uL (1.4-6.5); PLATELET COUNT 185 K/uL (130-400); RED CELL DISTRIBUTION WIDTH CV 13.8 % (11.5-14.5); RED CELL DISTRIBUTION WIDTH SD 49.7 fL (36.4-46.3); WHITE BLOOD COUNT 5.85 K/uL (4.8-10.8)
[2018-01-09 07:59] LABS: PTT PATIENT 28.2 SECONDS (21.0-31.0)
[2018-01-09] MEDS: CHOLECALCIFEROL 1000 INTER.UNIT TAB PO SCH (07:59)
[2018-01-09] MEDS: ASPIRIN 81 MG ECTAB PO SCH (07:59)
[2018-01-09] MEDS: DOCUSATE SODIUM 100 MG CAP PO SCH ×2 (08:00→20:15)
[2018-01-09] MEDS: GABAPENTIN 100 MG CAP PO SCH ×3 (08:00→20:15)
[2018-01-09] MEDS: METOPROLOL SUCC 25MG EXT REL TAB PO SCH ×2 (08:00→20:00)
[2018-01-09] MEDS: CHECK FENTANYL PATCH PLACEMENT SCH ×2 (08:01→16:05)
[2018-01-09] MEDS: HEPARIN SOD 5000 UNIT/0.5 ML CARP SQ SCH ×2 (08:04→20:30)
[2018-01-09 08:25] LABS: ALBUMIN 2.8 gm/dl (3.4-5.0); ALKALINE PHOSPHATASE 121 U/L (45-117); ALT/SGPT 75 U/L (12-78); AST/SGOT 61 U/L (15-37); BLOOD UREA NITROGEN 14 mg/dl (7-18); CALCIUM 8.7 mg/dl (8.5-10.1); CARBON DIOXIDE 27 mmol/L (21-32); CREATININE 0.94 mg/dl (0.60-1.20); GLUCOSE 79 mg/dl (70-99); POTASSIUM 4.3 mmol/L (3.5-5.1); SODIUM 141 mmol/L (136-145); TOTAL PROTEIN 5.9 gm/dl (6.4-8.2)
--- NOTE | 2018-01-09 08:42 | Hospitalist Progress Note ---
Hospitalist Progress Note Date of Service Jan 09, 2018. (Daniella Miller PA-C) Subjective Pt evaluation today including: conversation w/ patient, physical exam, chart review, lab review, review of studies Pain: Minimal abdominal pain PO Intake: Fair Voiding: no voiding problems The patient was seen and examined this morning. Pt reports doing better today. Her friend and medical POA, Alma is present at bedside. The patient notes earlier walking with PT/OT and did fairly well. Later this morning she did not quite feel herself, and describes an episode of feeling weak while up and walking with nursing. While she was standing she felt like her legs gave out on her. Per nursing she is a 2-max assist to get back into bed, but her sx quickly resolved. The patient notes that once in bed she felt better as well. Her BP was 97/48 at that time. She denies any lightheadedness, dizziness, chest pain, sob, or flutter during that moment. Her abdominal pain is significantly improved today. She denies nausea, and tolerated small breakfast. Discussion was held regarding CT abd/pelvis done yesterday still showing significant stool burden. I have encouraged her to increase fluids (drink 3 [facility] mugs per day). Discussed with nursing who has given MOM again today. ROS: 6 point ROS reviewed and otherwise negative. (Daniella Miller PA-C) Objective Vital Signs Date Time Temp Pulse Resp B/P (MAP) Pulse Ox O2 Delivery O2 Flow Rate FiO2 01/09/18 07:05 36.4 51 20 120/64 (82) 99 Room Air 01/09/18 00:00 Room Air 01/08/18 23:26 36.7 63 16 124/68 (86) 98 Room Air 01/08/18 20:38 61 162/52 (88) 01/08/18 15:40 Room Air 01/08/18 15:08 36.8 59 20 154/72 (99) 94 Room Air (Daniella Miller PA-C) Physical Exam Notes: General Appearance: WD/WN, NAD Eyes: PERRL, EOMI ENT: hearing grossly normal, + pertinent finding (MMM) Neck: supple, no JVD Respiratory/Chest: lungs clear, no respiratory distress, no accessory muscle use Cardiovascular: regular rate, rhythm, no JVD, no murmur Abdomen: normal bowel sounds, soft, nontender with light palpation, some discomfort elicited with deep palpation in RLQ and LLQ, + pertinent finding Extremities: non-tender, no calf tenderness, faint nonpitting edema BLE Neurologic/Psychiatric: alert, oriented x 3, + pertinent finding (affect is improved today) Skin: normal color, warm/dry (Daniella Miller, RC) Laboratory Results Last 24 Hours Test 01/09/18 07:02 White Blood Count 5.85 K/uL Red Blood Count 3.70 M/uL Hemoglobin 11.9 g/dL Hematocrit 36.5 % Mean Corpuscular Volume 98.6 fL Mean Corpuscular Hemoglobin 32.2 pg Mean Corpuscular Hemoglobin Concent 32.6 g/dl Platelet Count 185 K/uL Mean Platelet Volume 9.8 fL Neutrophils (%) (Auto) 57.7 % Lymphocytes (%) (Auto) 22.9 % Monocytes (%) (Auto) 12.5 % Eosinophils (%) (Auto) 6.0 % Basophils (%) (Auto) 0.7 % Neutrophils # (Auto) 3.38 K/uL Lymphocytes # (Auto) 1.34 K/uL Monocytes # (Auto) 0.73 K/uL Eosinophils # (Auto) 0.35 K/uL Basophils # (Auto) 0.04 K/uL RDW Standard Deviation 49.7 fL RDW Coefficient of Variation 13.8 % Immature Granulocyte % (Auto) 0.2 % Immature Granulocyte # (Auto) 0.01 K/uL Prothrombin Time 10.0 SECONDS Prothromb Time International Ratio 1.0 Activated Partial Thromboplast Time 28.2 SECONDS Partial Thromboplastin Ratio 1.1 Sodium Level 141 mmol/L Potassium Level 4.3 mmol/L Chloride Level 107 mmol/L Carbon Dioxide Level 27 mmol/L Anion Gap 7.0 mmol/L Blood Urea Nitrogen 14 mg/dl Creatinine 0.94 mg/dl Est Creatinine Clear Calc Drug Dose 38.8 ml/min Estimated GFR () 64.1 Estimated GFR (Non- 55.3 BUN/Creatinine Ratio 15.4 Random Glucose 79 mg/dl Calcium Level 8.7 mg/dl Magnesium Level 2.4 mg/dl Total Bilirubin 0.3 mg/dl Direct Bilirubin < 0.1 mg/dl Aspartate Amino Transf (AST/SGOT) 61 U/L Alanine Aminotransferase (ALT/SGPT) 75 U/L Alkaline Phosphatase 121 U/L Total Protein 5.9 gm/dl Albumin 2.8 gm/dl (Daniella Miller, RC) Assessment and Plan 87 yo F with 87 y/o female with a history of HTN, HLD, CVA, CAD, h/o [place] s/p stent to LAD in 2006, paroxysmal a-fib, h/o SVT s/p pacemaker, AAA, chronic pain , polyneuropathy, asthma, and GERD presented with persistent generalized pain involving her back and legs in particular, and unable to transfer as easily as usual, generalized fatigue, intermittent nausea and generalized headache, and then developed intermittent abdominal pain. Generalized fatigue and arthralgias Ambulatory dysfunction Constipation - Appears constipation x 3 days and dehydration primarily affecting her status. Stool burden seen on CT- Pt had 2 large bowel movements after MOM and stool softeners on 01/07. - Abdomial pain is localizing to the RLQ on 01/08. CT abd/pelvis 01/08: continues to demonstrate large stool burden. Continue aggressive bowel regimen. - Off IVFs. Encourage PO fluids. - Check orthostatic BPs. - Episode of weakness this morning with unknown etiology especially since was able to participate with PT/OT without difficulty. Monitor. - PT/OT on board Paroxysmal Atrial fibrillation HTN Hx IN h/o SVT--pacemaker in place - Continue amiodarone 200 mg every morning, aspirin 81 mg every morning, metoprolol succinate 12.5 mg p.o. twice daily Hx infrarenal AAA measures 4.1 cm. - As per CT slightly larger than last fall - Follows with Dr. Mathew as an outpt. Chronic pain syndrome - Continue fentanyl patch 25 mcg every 72 hours, and gabapentin 200 mg p.o. 3 times daily Hyperlipidemia- Continue atorvastatin 40 mg p.o. at bedtime Hx UTI - No current UTI. UA is clean. Pt had issues with incontinence likely due to IVF on 01/07. - Pt has outpatient prn Rx of nitrofurantoin but has not used this recently. GERD - Cont protonix 40 mg QAM HLD - Continue Lipitor 40 mg PO qd Paroxysmal a-fib, - Continue amiodarone 200 mg PO qd Chronic pain - Continue fentanyl 25 mcg TD q72h. Polyneuropathy - Continue gabapentin 200 mg PO TID Asthma - Continue albuterol inhaler prn SOB/wheezing Code Status: FULL DVT ppx: heparin subq CODE STATUS: FULL CODE - discussion held regarding goals of care. Pt plans to further discuss with her medical POA, Alma, who will be visiting her today. Disposition: From home, CM to assist with d/c planning. (Daniella Miller, RC) PA Physician Supervision Note: I interviewed and examined the patient. Discussed with Daniella Miller PAC and agree with findings and plan as documented in the note. Any exceptions or clarifications are listed here: None Patient looks controlling better poorly she has spells where her legs give out on her become weak. Patient is coming by her caregiver was updated at the bedside Vital signs today are stable temperature 36 4 pulse 51 respiration rate 20 BP 120/64 Abdominal exam shows normoactive bowel sounds soft nontender nondistended her lower extremity show 4.5 over 5 muscular strength when bed good sensation bilaterally distally patellar reflexes intact Patient presents with functional decline and significant constipation seen on CT scan unclear for the reasons of her taxes lower extremity weakness and does not appear to be vertiginous there is no radicular pain is only fleeting will continue to support are physical therapy and occupational therapy improving bowel habits Documented By: Alexy Mancera (Alexy Mancera M.D.)
[2018-01-09 11:07] VITALS: BP 97/48; PULSE 58
[2018-01-09] MEDS: MAGNESIUM HYDROXIDE SUSP 30 ML UDC PO PRN (12:28)
[2018-01-09 15:16] VITALS: BP 93/49; PULSE 62; TEMP 36.8; O2SAT 95
[2018-01-09 20:14] VITALS: BP 118/71; PULSE 56
[2018-01-09] MEDS: ATORVASTATIN 40 MG TAB PO SCH (20:16)
[2018-01-09 23:58] VITALS: BP 165/65; PULSE 59; TEMP 36.4; O2SAT 97
[2018-01-10] MEDS: CHECK FENTANYL PATCH PLACEMENT SCH ×2 (00:08→07:37)
[2018-01-10 07:21] VITALS: BP 179/76; PULSE 67; TEMP 36.7; O2SAT 99
[2018-01-10] MEDS: METOPROLOL SUCC 25MG EXT REL TAB PO SCH (08:41)
[2018-01-10] MEDS: ASPIRIN 81 MG ECTAB PO SCH (08:42)
[2018-01-10] MEDS: CHOLECALCIFEROL 1000 INTER.UNIT TAB PO SCH (08:42)
[2018-01-10] MEDS: AMIODARONE 200 MG TAB PO SCH (08:43)
[2018-01-10] MEDS: DOCUSATE SODIUM 100 MG CAP PO SCH (08:43)
[2018-01-10] MEDS: GABAPENTIN 100 MG CAP PO SCH ×2 (08:44→13:40)
[2018-01-10] MEDS: FENTANYL 25 MCG/HR TDSY TD SCH (08:45)
[2018-01-10] MEDS: FENTANYL PATCH REMOVE & WASTE SCH (08:46)
[2018-01-10] MEDS: HEPARIN SOD 5000 UNIT/0.5 ML CARP SQ SCH (08:47)
[2018-01-10] MEDS ORDERED: POLY335019 PO (13:25)
--- NOTE | 2018-01-10 13:30 | Discharge Instructions ---
Discharge Instructions Date of Service Jan 10, 2018. Admission Reason for Admission: Ambulatory Dysfunction, Bilateral Leg Pain Discharge Discharge Diagnosis / Problem: weakness and falls Discharge Goals Goal(s): Diagnostic testing, Therapeutic intervention Activity Recommendations Activity Level: Assistance Required .87 yo F with a history of HTN, HLD, CVA, CAD, h/o [place] s/p stent to LAD in 2006, paroxysmal a-fib, h/o SVT s/p pacemaker, AAA, chronic pain, polyneuropathy, asthma, and GERD presented with persistent generalized pain involving her back and legs in particular, and unable to transfer as easily as usual, generalized fatigue, intermittent nausea and generalized headache, and then developed intermittent abdominal pain. Generalized fatigue and arthralgias Ambulatory dysfunction Constipation - Appears constipation x 3 days and dehydration primarily affecting her status. Stool burden seen on CT- Pt had 2 large bowel movements after MOM and stool softeners on 01/07. Paroxysmal Atrial fibrillation HTN Hx OK h/o SVT--pacemaker in place - Continue amiodarone 200 mg every morning, aspirin 81 mg every morning, metoprolol succinate 12.5 mg p.o. twice daily Hx infrarenal AAA measures 4.1 cm. - As per CT slightly larger than last fall - Follows with Dr. Mathew as an outpt. Chronic pain syndrome - Continue fentanyl patch 25 mcg every 72 hours, and gabapentin 200 mg p.o. 3 times daily Hyperlipidemia- atorvastatin 40 mg p.o. at bedtime Hx UTI- No current UTI. UA is clean.there is an additional culture pending at discharge GERD protonix 40 mg QAM HLD Lipitor 40 mg PO qd Paroxysmal a-fib, amiodarone 200 mg PO qd Chronic pain fentanyl 25 mcg TD q72h. Polyneuropathy gabapentin 200 mg PO TID Asthma - Continue albuterol inhaler prn SOB/wheezing Code Status: FULL Additional Information Patient informed of condition: Yes Advance Directives: Yes DNR: No Level of Care: Skilled Communicable Disease: No Prognosis: Stable Greer Catheter: No Current Hospital Diet Patient's current hospital diet: Regular Diet Discharge Diet Recommended Diet: Regular Diet Pending Studies Studies pending at discharge: no Medical Emergencies . Who to Call and When: Medical Emergencies: If at any time you feel your situation is an emergency, please call 911 immediately. . Non-Emergent Contact Non-Emergency issues call your: Primary Care Provider Call Non-Emergent contact if: temperature is above 101, your pain is unusual for you . . "Provider Documentation" section prepared by Alexy Mancera. . Core Measure Problem Core Measures: None
[2018-01-10 14:13] VITALS: BP 179/76; PULSE 67; TEMP 36.7; O2SAT 99
[2018-01-10] MEDS ORDERED: DRGTP25 TD (15:39)
--- NOTE | 2018-01-10 19:31 | Discharge Summary ---
Discharge Summary Date of Service Jan 10, 2018. Discharge Summary Admission Date: Jan 06, 2018 at 22:05 Discharge Date: Jan 10, 2018 Discharge Disposition: long-term facility Principal Diagnosis: immature difficulties and functional decline, constipation Immunizations: Have You Had Influenza Vaccine: Unknown History of Tetanus Vaccine?: Unknown History of Pneumococcal: Unknown History of Hepatitis B Vaccine: Unknown Medication Reconciliation New Medications: Fentanyl (Fentanyl) 25 Mcg Tdsy 25 MCG TD Q3D, #10 PATCH Changed Medications: Polyethylene Glycol 3350 (Miralax) 1 Pow Pow 17 GM PO DAILY, #60 GM (Changed from: Q2D) Continued Medications: Acetaminophen (Tylenol) 500 Mg Tab 1000 MG PO Q6H PRN for Pain, TAB Albuterol Hfa (Ventolin Hfa) 200 Puffs/97971 Mcg Aers 2 PUFFS INH Q6H PRN for SOB/Wheezing, #1 INHALER Amiodarone Hcl (Cordarone) 200 Mg Tab 200 MG PO QAM, TAB Aspirin (Aspirin 81) 81 Mg Tab 81 MG PO QAM PT WILL CHECK WITH SURGEON Atorvastatin (Lipitor) 40 Mg Tab 40 MG PO HS, TAB Cholecalciferol (Vitamin D) 1,000 Unit Tab 2000 UNITS PO QAM Docusate Sodium (Docusate Sodium) 100 Mg Cap 100 MG PO BID Fentanyl (Fentanyl) 25 Mcg Tdsy 25 MCG TD CQ72HR, #10 PATCH Gabapentin (Neurontin) 100 Mg Cap 200 MG PO TID, CAP Meclizine HCl (Meclizine HCl) 25 Mg Tab 12.5 MG PO TID PRN for Dizziness or Vertigo, #30 TAB Metoprolol Succinate (Toprol Xl) 25 Mg Tabcr 12.5 MG PO BID, #30 TAB Ondansetron Hcl (Zofran) 4 Mg Tab 4 MG PO PRN PRN for Nausea, TAB Zoledronic Acid (Reclast) 5 Mg/100 Ml Inj 5 MG INJ YEARLY Discontinued Medications: Nitrofurantoin Monohyd Macrocr (Nitrofurantoin Monohydrat) 100 Mg Cap 100 MG PO BID, #4 CAP Discharge Exam Review of Systems: Constitutional: No fever, No chills, No sweats Abdomen: + constipation, No diarrhea Physical Exam: General Appearance: WD/WN, + mild distress Eyes: normal inspection, sclerae normal Respiratory/Chest: chest non-tender, lungs clear, normal breath sounds Cardiovascular: regular rate, rhythm, no murmur Hospital Course .87 yo F with a history of HTN, HLD, CVA, CAD, h/o [place] s/p stent to LAD in 2006, paroxysmal a-fib, h/o SVT s/p pacemaker, AAA, chronic pain, polyneuropathy, asthma, and GERD presented with persistent generalized pain involving her back and legs in particular, and unable to transfer as easily as usual, generalized fatigue, intermittent nausea and generalized headache, and then developed intermittent abdominal pain. Generalized fatigue and arthralgias Ambulatory dysfunction Constipation - Appears constipation x 3 days and dehydration primarily affecting her status. Stool burden seen on CT- Pt had 2 large bowel movements after MOM and stool softeners on 01/07. Paroxysmal Atrial fibrillation HTN Hx [place] h/o SVT--pacemaker in place - Continue amiodarone 200 mg every morning, aspirin 81 mg every morning, metoprolol succinate 12.5 mg p.o. twice daily Hx infrarenal AAA measures 4.1 cm. - As per CT slightly larger than last fall - Follows with Dr. Mathew as an outpt. Chronic pain syndrome - Continue fentanyl patch 25 mcg every 72 hours, and gabapentin 200 mg p.o. 3 times daily Hyperlipidemia- atorvastatin 40 mg p.o. at bedtime Hx UTI- No current UTI. UA is clean.there is an additional culture pending at discharge GERD protonix 40 mg QAM HLD Lipitor 40 mg PO qd Paroxysmal a-fib, amiodarone 200 mg PO qd Chronic pain fentanyl 25 mcg TD q72h. Polyneuropathy gabapentin 200 mg PO TID Asthma - Continue albuterol inhaler prn SOB/wheezing Code Status: FULL Total Time Spent: Greater than 30 minutes This includes examination of the patient, discharge planning, medication reconciliation, and communication with other providers. Discharge Instructions Please refer to the electronic Patient Visit Report (Discharge Instructions) for additional information.
== END 2018-01-10 16:05 | DRG 392 ==
LOC: EDBD 13:32 → C.EDB 13:33 → ENRESERV 21:33 → C.MS4W 22:05 → EDBEDREQ 22:15 → C.MS4W 01-10 03:20
PROVIDERS: ADMIT Hospitalist; ATTEND Internal Medicine
DX: K59.00 Constipation, unspecified (principal); E86.0 Dehydration; R55 Syncope and collapse; M79.605 Pain in left leg; M79.604 Pain in right leg; M25.50 Pain in unspecified joint; R53.81 Other malaise; R53.83 Other fatigue; R11.0 Nausea; R51 Headache; R26.2 Difficulty in walking, not elsewhere classified; R32 Unspecified urinary incontinence; I10 Essential (primary) hypertension; E78.5 Hyperlipidemia, unspecified; I25.10 Atherosclerotic heart disease of native coronary artery without angina pectoris; I48.0 Paroxysmal atrial fibrillation; J45.909 Unspecified asthma, uncomplicated; I71.4 Abdominal aortic aneurysm, without rupture; K21.9 Gastro-esophageal reflux disease without esophagitis; G89.4 Chronic pain syndrome; G62.9 Polyneuropathy, unspecified; I25.2 Old myocardial infarction; Z95.5 Presence of coronary angioplasty implant and graft; Z95.0 Presence of cardiac pacemaker; Z86.73 Personal history of transient ischemic attack (TIA), and cerebral infarction without residual deficits; Z79.2 Long term (current) use of antibiotics; Z79.82 Long term (current) use of aspirin; Z79.83 Long term (current) use of bisphosphonates; Z79.891 Long term (current) use of opiate analgesic; Z79.899 Other long term (current) drug therapy; Z88.8 Allergy status to other drugs, medicaments and biological substances

== ENCOUNTER 2018-02-09 11:15 | Inpatient (IN) | payer BC, OTHER ==
[2018-02-09] VITALS (36 sets, daily range): BP systolic 79–210; BP diastolic 53–143; PULSE 80–136; TEMP 36.5; O2SAT 91–100; Ht 157.5 cm; Wt 70.1 kg
[~2018-02-09] VITALS: Ht 157.5 cm; Wt 70.1 kg
[~2018-02-09 11:15] MED LIST changes: -ASPI-435 PO; -CHOL100010 PO; +FLUMAZENIL 0.1 MG/1 ML 10 ML VIAL IV ONE; -GABA-112 PO; -LISI20TA3 PO; -LPT/40 PO; -MCRB100 PO; +NALOXONE HCL INJ 0.4 MG/1 ML VIAL/CARP IV ONE; +SODIUM CHLORIDE 0.9% 10ML FLUSH IV ONE; -VNTHFA/IN INH
[2018-02-09] MEDS ORDERED: ONDANSETRON INJ 2 MG/ML 2 ML VIAL ONE (11:27)
[2018-02-09 11:40] LABS: BASO % 0.2 %; BASO ABS # 0.01 K/uL (0-0.2); EOS % 0.9 %; EOS ABS # 0.04 K/uL (0-0.5); HEMATOCRIT 39.7 % (37-47); HEMOGLOBIN 12.4 g/dL (12.0-16.0); IG# 0.01 K/uL (0.00-0.02); LYMPH % 14.2 %; LYMPH ABS # 0.63 K/uL (1.2-3.4); MEAN CELL VOLUME 97.3 fL (80-100); MEAN CORPUSCULAR HEMOGLOBIN 30.4 pg (25-34); MEAN CORPUSCULAR HGB CONC 31.2 g/dl (32-36); MEAN PLATELET VOLUME 9.5 fL (7.4-10.4); MONO % 0.2 %; MONO ABS # 0.01 K/uL (0.11-0.59); NEUT % 84.3 %; NEUT ABS # 3.74 K/uL (1.4-6.5); PLATELET COUNT 182 K/uL (130-400); RED CELL DISTRIBUTION WIDTH CV 13.5 % (11.5-14.5); RED CELL DISTRIBUTION WIDTH SD 48.1 fL (36.4-46.3); WHITE BLOOD COUNT 4.44 K/uL (4.8-10.8)
--- NOTE | 2018-02-09 11:41 | DIAGNOSTIC IMAGING REPORT ---
ADDENDUM Review of the scan at the request of Dr. Pompa. No change from the original dictation Electronically signed by: Grant Fabian M.D. 02/09/2018 11:46 AM Dictated Date/Time: 02/09/2018 11:46 AM ORIGINAL REPORT HEAD WITHOUT CONTRAST (CT) CT DOSE: 614.27 mGy.cm HISTORY: Mental status change headache, confusion, vomiting TECHNIQUE: Multiaxial CT images of the head were performed without the use of intravenous contrast. A dose lowering technique was utilized adhering to the principles of ALARA. Comparison: 01/06/2018 Findings: The paranasal sinuses and mastoid air cells are clear. The calvarium and skull base are intact. The ventricles and sulci are within normal limits. There is no mass, hematoma, midline shift, or acute infarct. Small old left occipital infarct. Mild age-related atrophy and encephalomalacia-type change. Impression: No acute intracranial abnormality. Chronic and age-related change. The above report was generated using voice recognition software. It may contain grammatical, syntax or spelling errors. Electronically signed by: Grant Fabian M.D. 02/09/2018 11:40 AM Dictated Date/Time: 02/09/2018 11:38 AM
[2018-02-09 11:51] LABS: PTT PATIENT 20.5 SECONDS (21.0-31.0)
[2018-02-09 12:02] LABS: BLOOD UREA NITROGEN 22 mg/dl (7-18); CALCIUM 8.8 mg/dl (8.5-10.1); CARBON DIOXIDE 28 mmol/L (21-32); CREATININE 0.93 mg/dl (0.60-1.20); GLUCOSE 111 mg/dl (70-99); POTASSIUM 4.3 mmol/L (3.5-5.1); SODIUM 140 mmol/L (136-145)
[2018-02-09 12:07] LABS: CKMB 1.8 ng/ml (0.5-3.6)
[2018-02-09] MEDS ORDERED: ACET-1256 PO (12:12)
[2018-02-09] MEDS ORDERED: APIX1TAB PO (12:12)
[2018-02-09 12:14] LABS: ALBUMIN 3.2 gm/dl (3.4-5.0); TOTAL PROTEIN 6.7 gm/dl (6.4-8.2)
[2018-02-09] MEDS ORDERED: OPTIRAY 320 IV PRN (12:15)
--- NOTE | 2018-02-09 12:17 | DIAGNOSTIC IMAGING REPORT ---
CHEST ONE VIEW PORTABLE CLINICAL HISTORY: Stroke mental status change COMPARISON STUDY: 01/06/2018 FINDINGS: Mild stable cardiomegaly. Chronic increase in density left lung base medially. No evidence for an acute infiltrate. Severe degenerative change of the shoulders bilaterally. IMPRESSION: Chronic change. No acute process. The above report was generated using voice recognition software. It may contain grammatical, syntax or spelling errors. Electronically signed by: Grant Fabian M.D. 02/09/2018 12:16 PM Dictated Date/Time: 02/09/2018 12:15 PM
[2018-02-09] MEDS ORDERED: SODIUM CHLORIDE 0.9% 500ML 500 ML IV STA ×3 (12:40→21:32)
--- NOTE | 2018-02-09 13:55 | EMERGENCY ROOM VISIT NOTE ---
History Report prepared by Felisa: Kevin Melendez Under the Supervision of: Dr. Juan Aly M.D. First contact with patient: 11:24 Stated Complaint: HEADACHE, LEFT LOWER LEG PAIN History of Present Illness The patient is a 87 year old female who presents to the Emergency Room by EMS with complaints of constant headache beginning shortly prior to arrival. The patient is reported to have suddenly began vomiting and complaining of a headache at home. Per nursing staff, the patient appears to be very confused. They state that the patient's mental status has worsened since EMS arrived on scene. The patient lives at her home, and is normally alert and oriented at baseline. HPI limited secondary to altered mental status. Source of History: nursing staff History Limited By: AMS Onset: Shortly prior to arrival Position: head Quality: ache Timing: constant Associated Symptoms: + vomiting Note: Additional symptoms: confusion. Review of Systems ROS unobtainable secondary to altered mental status. 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 (8) Chest pain (9) Chest pain at rest (10) Chronic arthralgias of knees and hips (11) ESOPHAGEAL REFLUX (12) HYPERLIPIDEMIA NEC/NOS (13) HYPERTENSION NOS (14) Intractable back pain (15) Nausea and vomiting (16) OLD MYOCARDIAL INFARCT (17) PERIPH VASCULAR DIS NOS (18) Severe hypertension (19) Thoracic spinal stenosis Surgical Problems: (1) S/P laminectomy Family History Cancer (breast, uterine) Myocardial infarction Parkinson's disease Social History Smoking Status: Former Smoker Alcohol Use: none Drug Use: none Marital Status: single Housing Status: lives with family Occupation Status: retired Current/Historical Medications Scheduled Apixaban (Eliquis), 2.5 MG PO BID Aspirin (Aspirin 81), 81 MG PO QAM Atorvastatin (Lipitor), 40 MG PO HS Cholecalciferol (Vitamin D), 2,000 UNITS PO QAM Docusate Sodium (Colace), 200 MG PO BID Fentanyl (Fentanyl), 25 MCG TD Q3D Gabapentin (Neurontin), 200 MG PO TID Lisinopril (Prinivil), 10 MG PO QAM Polyethylene Glycol 3350 (Miralax), 17 GM PO DAILY Scheduled PRN Acetaminophen (Tylenol), 2 TAB PO Q6H PRN for breakthrough pain Albuterol Hfa (Ventolin Hfa), 1-2 PUFFS INH Q6H PRN for SOB/Wheezing Lisinopril (Prinivil), 10 MG PO HS PRN for Hypertension Ondasetron Odt (Zofran Odt), 4 MG SL Q6H PRN for nausea Allergies Coded Allergies: Adenosine (Verified Allergy, Unknown, "pt not sure had it in er years ago ", 01/06/18) Physical Exam Vital Signs Date Time Temp Pulse Resp B/P (MAP) Pulse Ox O2 Delivery O2 Flow Rate FiO2 02/09/18 15:45 68 23 87/45 95 Room Air 02/09/18 15:06 94 22 109/59 92 Room Air 02/09/18 14:32 95 12 100/56 95 Room Air 02/09/18 12:15 83 16 130/51 91 Room Air 02/09/18 12:15 96 Nasal Cannula 2.0 02/09/18 11:45 90 Room Air 02/09/18 11:26 107 02/09/18 11:15 36.8 89 12 146/94 93 Room Air Physical Exam GENERAL: Patient is in mild acute distress, vomiting. HEENT: No acute trauma, normocephalic atraumatic, mucous membranes moist, no nasal congestion, no scleral icterus. NECK: No stridor, no adenopathy, no meningismus, trachea is midline. LUNGS: Clear to auscultation bilaterally, no wheeze, no rhonchi, breath sounds equal. HEART: Tachycardic with a regular rhythm. No murmurs. ABDOMEN: Soft, nontender, bowel sounds positive, no hernias, no peritonitis. EXTREMITIES: No cyanosis or edema, full range of motion of all the joints without pain or difficulty, no signs for acute trauma. NEUROLOGIC: Intermittent confusion. Does move all extremities. Subtle left facial droop with speaking. Awake. SKIN: No rash, no jaundice, no diaphoresis. Pale. Medical Decision & Procedures ER Provider Diagnostic Interpretation: Radiology results as stated below per my review and radiologist interpretation: ORIGINAL REPORT HEAD WITHOUT CONTRAST (CT) Findings: The paranasal sinuses and mastoid air cells are clear. The calvarium and skull base are intact. The ventricles and sulci are within normal limits. There is no mass, hematoma, midline shift, or acute infarct. Small old left occipital infarct. Mild age-related atrophy and encephalomalacia-type change. Impression: No acute intracranial abnormality. Chronic and age-related change. The above report was generated using voice recognition software. It may contain grammatical, syntax or spelling errors. Electronically signed by: Grnat Fabian M.D. 02/09/2018 11:40 AM ADDENDUM Review of the scan at the request of Dr. Pompa. No change from the original dictation Electronically signed by: Grant Fabian M.D. 02/09/2018 11:46 AM Dictated Date/Time: 02/09/2018 11:46 AM CHEST ONE VIEW PORTABLE FINDINGS: Mild stable cardiomegaly. Chronic increase in density left lung base medially. No evidence for an acute infiltrate. Severe degenerative change of the shoulders bilaterally. IMPRESSION: Chronic change. No acute process. The above report was generated using voice recognition software. It may contain grammatical, syntax or spelling errors. Electronically signed by: Grant Fabian M.D. 02/09/2018 12:[address] angiography of the brain: IMPRESSION: Moderate scattered atherosclerotic change with no evidence for significant or critical stenotic process. No evidence for aneurysm formation. The above report was generated using voice recognition software. It may contain grammatical, syntax or spelling errors. Electronically signed by: Grant Fabian M.D. 02/09/2018 2:42 PM Abdominal and pelvis CT: IMPRESSION: 1. Streak and motion compromised examination. 2. There is rectosigmoid fecal impaction and moderate to severe constipation. No bowel obstruction is identified. 3. There are 2 aneurysms of the abdominal aorta identified measuring up to 3.8 cm as detailed above. These are similar to previous. 4. Cardiomegaly and small pleural effusions. 5. There is intra and extrahepatic biliary ductal dilatation, as well as mild dilatation of the pancreatic duct. This is similar to prior studies and of indeterminant etiology and significance. Correlation was serum bilirubin levels is recommended. 6. Additional findings as above. Electronically signed by: Juan Galindo M.D. 02/09/2018 2:44 PM Dictated Date/Time: 02/09/2018 2:[address] angiography of the neck: IMPRESSION: 1. Moderate atherosclerotic plaque within the proximal bilateral internal carotid arteries with 40% stenosis of the proximal left internal carotid artery and 30% stenosis of the proximal right internal carotid artery. 2. Patent vertebral arteries. No dissection. Electronically signed by: Dre Vargas M.D. 02/09/2018 2:49 PM Dictated Date/Time: 02/09/2018 2:41 PM Laboratory Results 02/09/18 11:25 Red Blood Count 4.08, Mean Corpuscular Volume 97.3, Mean Corpuscular Hemoglobin 30.4, Mean Corpuscular Hemoglobin Concent 31.2, Mean Platelet Volume 9.5, Neutrophils (%) (Auto) 84.3, Lymphocytes (%) (Auto) 14.2, Monocytes (%) (Auto) 0.2, Eosinophils (%) (Auto) 0.9, Basophils (%) (Auto) 0.2, Neutrophils # (Auto) 3.74, Lymphocytes # (Auto) 0.63, Monocytes # (Auto) 0.01, Eosinophils # (Auto) 0.04, Basophils # (Auto) 0.01 02/09/18 11:25 Test 02/09/18 11:25 02/09/18 13:19 02/09/18 15:10 02/09/18 15:32 White Blood Count 4.44 K/uL (4.8-10.8) Red Blood Count 4.08 M/uL (4.2-5.4) Hemoglobin 12.4 g/dL (12.0-16.0) Hematocrit 39.7 % (37-47) Mean Corpuscular Volume 97.3 fL (80-100) Mean Corpuscular Hemoglobin 30.4 pg (25-34) Mean Corpuscular Hemoglobin Concent 31.2 g/dl (32-36) Platelet Count 182 K/uL (130-400) Mean Platelet Volume 9.5 fL (7.4-10.4) Neutrophils (%) (Auto) 84.3 % Lymphocytes (%) (Auto) 14.2 % Monocytes (%) (Auto) 0.2 % Eosinophils (%) (Auto) 0.9 % Basophils (%) (Auto) 0.2 % Neutrophils # (Auto) 3.74 K/uL (1.4-6.5) Lymphocytes # (Auto) 0.63 K/uL (1.2-3.4) Monocytes # (Auto) 0.01 K/uL (0.11-0.59) Eosinophils # (Auto) 0.04 K/uL (0-0.5) Basophils # (Auto) 0.01 K/uL (0-0.2) RDW Standard Deviation 48.1 fL (36.4-46.3) RDW Coefficient of Variation 13.5 % (11.5-14.5) Immature Granulocyte % (Auto) 0.2 % Immature Granulocyte # (Auto) 0.01 K/uL (0.00-0.02) Prothrombin Time 10.6 SECONDS (9.0-12.0) Prothromb Time International Ratio 1.0 (0.9-1.1) Activated Partial Thromboplast Time 20.5 SECONDS (21.0-31.0) Partial Thromboplastin Ratio 0.8 Anion Gap 5.0 mmol/L (3-11) Est Creatinine Clear Calc Drug Dose 43.7 ml/min Estimated GFR () 65.0 Estimated GFR (Non- 56.0 BUN/Creatinine Ratio 24.1 (10-20) Calcium Level 8.8 mg/dl (8.5-10.1) Total Bilirubin 1.4 mg/dl (0.2-1) Direct Bilirubin 1.0 mg/dl (0-0.2) Aspartate Amino Transf (AST/SGOT) 664 U/L (15-37) Alanine Aminotransferase (ALT/SGPT) 369 U/L (12-78) Alkaline Phosphatase 259 U/L (45-117) Total Creatine Kinase 83 U/L (26-192) Creatine Kinase MB 1.8 ng/ml (0.5-3.6) Creatine Kinase MB Ratio 2.2 (0-3.0) Troponin I < 0.015 ng/ml (0-0.045) Total Protein 6.7 gm/dl (6.4-8.2) Albumin 3.2 gm/dl (3.4-5.0) Lipase 110 U/L (73-393) Ammonia < 10.0 umol/L (11-32) Ethyl Alcohol mg/dL < 3.0 mg/dl (0-3) Urine Color YELLOW Urine Appearance SL CLOUDY (CLEAR) Urine pH 5.5 (4.5-7.5) Urine Specific [place] <= 1.005 (1.000-1.030) Urine Protein NEG (NEG) Urine Glucose (UA) NEG (NEG) Urine Ketones NEG (NEG) Urine Occult Blood TRACE (NEG) Urine Nitrite NEG (NEG) Urine Bilirubin NEG (NEG) Urine Urobilinogen POS (NEG) Urine Leukocyte Esterase NEG (NEG) Urine RBC 0-4 /hpf (0-4) Urine WBC 1-5 /hpf (0-5) Urine Epithelial Cells >30 /lpf (0-5) Urine Calcium Oxalate Crystals PRESENT (NONE PRSENT) Urine Bacteria 1+ (NEG) Test 02/09/18 15:58 Laboratory results reviewed by me. Medications Administered Medications (Trade) Dose Ordered Sig/Yifan Route Start Time Stop Time Status Last Admin Dose Admin Ondansetron HCl (Zofran Inj) 4 mg STK-MED ONCE .ROUTE 02/09/18 11:27 02/09/18 11:28 DC 02/09/18 11:27 4 MG Sodium Chloride 500 ml @ 999 mls/hr Q31M STAT IV 02/09/18 12:40 02/09/18 13:10 DC 02/09/18 12:40 999 MLS/HR Sodium Chloride 500 ml @ 999 mls/hr Q31M STAT IV 02/09/18 14:40 02/09/18 15:10 DC 02/09/18 14:40 999 MLS/HR Sodium Chloride 1,000 ml @ 999 mls/hr Q1H1M STAT IV 02/09/18 15:46 02/09/18 16:46 02/09/18 15:46 999 MLS/HR ECG Per My Interpretation Indication: altered mental status Rate (beats per minute): 91 Rhythm: normal sinus Findings: other (Diffuse non-specific T-wave changes. No PVC. No ST elevation. ) ED Course 1124: The patient was evaluated in room B11B. A complete history and physical exam was performed. 1145: Nursing staff spoke with the patient's daughter over the phone. The patient's daughter adds that the patient felt weaker than normal prior to going to bed last night. She also states that the patient's symptoms began at 1045 today (45 minutes [employer]). 1238: The patient admitted to a history of alcoholism as per the nursing staff. 1240: Ordered Sodium Chloride 500 ml @ 999 mls/hr IV. 1310: I reassessed the patient. She appears more awake and is talking. The patient's daughter has arrived and states that the patient is much better than she was, but is still not back to her baseline. Patient was ordered for a repeat bolus of IV saline 500 cc. I spoke with the on-call hospitalist. Admission/observation is warranted. I did check again on the patient. She is more awake and interactive. She remains somnolent though. Repeat 1000 cc saline bolus ordered IV. Medical Decision The patient is a 87 year old female who presents to the ED with complaints of sudden onset headache with confusion. Differential diagnoses considered include stroke, ICH, electrolyte imbalance, anemia, infection, and NM. There is no leukocytosis or concerning anemia. No significant electrolyte abnormality or kidney failure. Liver enzymes are quite elevated and concerning for hepatitis. No coagulopathy. Urinalysis does not show infection. Blood cultures are pending. Ammonia level is not elevated. Lactic acid is elevated, this could be consistent with dehydration or infection. Chest film does not show pneumonia or CHF. No evidence for pancreatitis. Brain CT shows no acute bleed or mass-effect. CT angiography of the brain does not show evidence for aneurysm or arterial occlusion consistent with stroke. CT angiography of the neck shows evidence for mild stenosis, nothing thought acutely significant. Abdominal and pelvis CT shows dilatation of the biliary/hepatic ducts, this has been documented before. The patient was constipated. No acute infectious process by CT scan. Urine tox is pending. EKG shows a sinus rhythm, no acute ischemia. Cardiac enzyme testing 1 is not consistent with acute cardiac injury. Alcohol level was undetectable. The patient presents with the sudden onset of a headache and vomiting. She was feeling a little bit weak last evening. A stroke alert was eventually called, she was seen by the on-call [facility] tele-stroke neurologist. The patient was not felt a candidate for TPA. Her presentation was felt more medication related or secondary to a metabolic process. The patient received IV saline, several IV saline boluses were given. She did receive IV Zofran for nausea. The patient has made some improvement with her mentation although she is clearly not at baseline. She remains quite somnolent and hard to arouse. Her blood pressure had been adequate initially but now is starting to drop. More IV fluid has been ordered. I did speak with the patient's daughter, the patient has not been sick or ill, there have been no complaints of fever or chills. Certainly, infection is a concern here although I find no source for infection by my exam/workup. At this point, hospitalization is required, further workup is required. I spoke to the on-call hospitalist, we discussed the case. The family is aware of the need for admission/hospitalization. Of note, there was concern the patient had possibly taken too much Tylenol as this was a medication on her list. We talked with the patient and her daughter , she has only used about 2 doses of Tylenol in the last week. Medication Reconcilliation Current Medication List: was personally reviewed by me Blood Pressure Screening Patient's blood pressure: Elevated blood pressure Blood pressure disposition: Elevated BP felt to be situational Consults Time Called: 1200 Consulting Physician: Dr. Alvarez - Neurology Returned Call: 1205 Discussed the patient's case. Dr. Alvarez will evaluate the patient via Telestroke. He does not believe TPA to be warranted due to the complicated nature of the patient's case. 1300: I spoke with Dr. Alvarez again. He states that the patient's symptoms appear more encephalopathic than stroke-like in nature. He recommends ordering CTA head and neck, and calling him back if they are positive for stroke. Impression Primary Impression: Change in mental status Additional Impressions: Elevated liver enzymes Confusion Headache Nausea and vomiting Critical Care I have personally spent greater than 35 minutes of critical care time in the direct management of this patient. This includes bedside care, interpretation of diagnostic studies, and testing, discussion with consultants, patient, and family members, and other required patient management activities. This 35 minutes is in excess of all separately billable procedures. Scribe Attestation The scribe's documentation has been prepared under my direction and personally reviewed by me in its entirety. I confirm that the note above accurately reflects all work, treatment, procedures, and medical decision making performed by me. Departure Information Dispostion Being Evaluated By Hospitalist Alexei Layne M.D. (PCP) Stroke History Time Last Known Well 1045 am Stroke t-PA Criteria Reviewed Does NOT meet criteria for t-PA Reason t-PA Not Given Treatment not indicated Strict Exclusion Criteria novel oral anticoagulant use (within last 2 days) Problem Qualifiers
--- NOTE | 2018-02-09 14:44 | DIAGNOSTIC IMAGING REPORT ---
HEAD ANGIO WITH CONTRAST CLINICAL HISTORY: Confusion Mental status change TECHNIQUE: Transaxial acquisition with multi axial reformatted images COMPARISON STUDY: None FINDINGS: Findings of scattered atherosclerotic change of the [place] and vertebral basilar vasculature. No evidence for a significant or high-grade stenotic process. Minimal/mild scattered atherosclerotic change throughout. No evidence for aneurysm formation. No evidence for a high-grade or critical stenosis. IMPRESSION: Moderate scattered atherosclerotic change with no evidence for significant or critical stenotic process. No evidence for aneurysm formation. The above report was generated using voice recognition software. It may contain grammatical, syntax or spelling errors. Electronically signed by: Grant Fabian M.D. 02/09/2018 2:42 PM Dictated Date/Time: 02/09/2018 2:38 PM
--- NOTE | 2018-02-09 14:45 | DIAGNOSTIC IMAGING REPORT ---
CT SCAN OF THE ABDOMEN AND PELVIS WITH IV CONTRAST CLINICAL HISTORY: Generalized abdominal pain. COMPARISON STUDY: Abdominal CT dated 01/08/2018. TECHNIQUE: Following the IV administration of 119 cc of Optiray 320, CT scan of the abdomen and pelvis is performed from the lung bases to the proximal femora. Images are reviewed in the axial, sagittal, and coronal planes. IV contrast was administered without complication. A dose lowering technique was utilized adhering to the principles of ALARA. The examination is degraded by streak artifact from the patient's arms which could not be elevated above the abdomen as well as by motion artifact. FINDINGS: Lung bases: The heart is enlarged and without pericardial effusion. The coronary arteries and mitral annulus are densely calcified. Pacemaker leads are observed. Emphysematous change is observed. There is no airspace consolidation typical for pneumonia. There are small pleural effusions with associated atelectasis. Liver: The contrast-enhanced liver is normal in size, contour, and attenuation. There is moderate intrahepatic biliary ductal dilatation. The hepatic veins and portal veins are patent. Gallbladder: Surgically absent. The common bile duct is markedly dilated measuring up to 1.6 cm. Spleen: Normal in size and attenuation. Pancreas: Atrophic and grossly unremarkable. There is unchanged dilatation of the main pancreatic duct which measures up to 4.5 mm. Adrenal glands: Unremarkable. Kidneys: The contrast enhanced kidneys are atrophic and without hydronephrosis. The kidneys enhance symmetrically. Abdominal vasculature: There is advanced atherosclerotic calcification of the abdominal aorta. There is aneurysmal dilatation of the abdominal aorta at the level of the esophageal hiatus. This measures 3.0 cm in AP diameter and 3.8 cm in transverse diameter. An infrarenal abdominal aortic aneurysm is unchanged from previous, and measures 3.8 cm in AP diameter and 3.8 cm in transverse diameter. An infrarenal IVC filter is in place. Bowel: There is rectosigmoid fecal impaction and moderate to severe constipation. No bowel obstruction is seen. The appendix is well-visualized and normal. Peritoneum: There is no intraperitoneal free air or abdominal ascites. Lymphadenopathy: None. Pelvic viscera: The bladder is normal as visualized. The uterus is surgically absent. No adnexal lesion is seen. Skeletal structures: The skeletal structures are osteopenic. There is a mild superior endplate compression deformity of L1, unchanged from previous. Moderate to advanced lumbosacral spondylosis is observed. No lytic or blastic lesions are seen. Postlaminectomy change is seen throughout the lumbar spine. IMPRESSION: 1. Streak and motion compromised examination. 2. There is rectosigmoid fecal impaction and moderate to severe constipation. No bowel obstruction is identified. 3. There are 2 aneurysms of the abdominal aorta identified measuring up to 3.8 cm as detailed above. These are similar to previous. 4. Cardiomegaly and small pleural effusions. 5. There is intra and extrahepatic biliary ductal dilatation, as well as mild dilatation of the pancreatic duct. This is similar to prior studies and of indeterminant etiology and significance. Correlation was serum bilirubin levels is recommended. 6. Additional findings as above. Electronically signed by: Juan Galindo M.D. 02/09/2018 2:44 PM Dictated Date/Time: 02/09/2018 2:35 PM
--- NOTE | 2018-02-09 14:50 | DIAGNOSTIC IMAGING REPORT ---
CT ANGIOGRAPHY OF THE NECK WITH CONTRAST CLINICAL HISTORY: Confusion. Headache. Possible cerebrovascular accident. COMPARISON STUDY: CTA of the neck August 31, 2017. Technique: CT angiography of the carotid and vertebral arteries was obtained using [employer] Rocket 320 IV and 3D reconstruction on an independent workstation. NASCET criteria was utilized. A dose lowering technique was utilized adhering to the principles of ALARA. Findings: Extensive atherosclerotic plaque of the aortic arch is noted. Ulcerated plaque is noted. There is moderate plaque of the proximal bilateral subclavian arteries without significant stenosis. There is moderate plaque within both carotid bifurcations. There is 40% stenosis of the proximal left internal carotid artery that measures 2.5 mm at the area of narrowing and 4.4 mm distally. There is mild stenosis of approximately 30% of the proximal right internal carotid artery. The bilateral vertebral arteries are patent. There is no dissection within the major vasculature of the neck. There is no cervical lymphadenopathy. The CTA of the head will be reported separately. There is a 9 mm right lobe thyroid nodule which is unchanged. IMPRESSION: 1. Moderate atherosclerotic plaque within the proximal bilateral internal carotid arteries with 40% stenosis of the proximal left internal carotid artery and 30% stenosis of the proximal right internal carotid artery. 2. Patent vertebral arteries. No dissection. Electronically signed by: Dre Vargas M.D. 02/09/2018 2:49 PM Dictated Date/Time: 02/09/2018 2:41 PM
--- NOTE | 2018-02-09 15:15 | History and Physical ---
History & Physical Date & Time of Service: Feb 09, 2018 at 15:10 Chief Complaint: Headache, Left Lower Leg Pain Primary Care Physician: Alexei Redman M.D. 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 History is obtained primarily from ER physic who was able to visit with the patient's daughter at bedside.[place] daughter is no longer present and unable to be reached by phone. The patient is a poor historian due to lethargy. Patient was noted to have increased generalized weakness last evening with ambulation, but she was able to and ambulate with walker assistance. This morning around 10:45 AM the patient was found to be acutely weak, could not ambulate and developed severe nausea and vomited 3. She developed a severe headache followed by garbled and slurred speech. She was transported to the ER via EMS, and stroke alert was called. Neurology evaluated via telemedicine, Dr. Diaz from [place]. A CT and CTA of the head is negative for any acute findings. The patient also had a CT of the abdomen/pelvis showing known AAA measuring approximately 3.8 cm, rectosigmoid impaction and severe constipation. Since being in the ER she has received 1 L of fluid. Drug toxicology is in process, negative ethanol as patient does have remote history of alcohol use. UA/urine culture is in process, she is incontinent of urine. We will check blood cultures 2 and treat for sepsis with progressive hypotension to 90/46 despite fluid resuscitation of 1 L, another 1 L bolus was hung while I was at bedside. 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 (8) Chest pain (9) Chest pain at rest (10) Chronic arthralgias of knees and hips (11) ESOPHAGEAL REFLUX (12) HYPERLIPIDEMIA NEC/NOS (13) HYPERTENSION NOS (14) Intractable back pain (15) Nausea and vomiting (16) OLD MYOCARDIAL INFARCT (17) PERIPH VASCULAR DIS NOS (18) Severe hypertension (19) Thoracic spinal stenosis Surgical Problems: (1) S/P laminectomy Family History Cancer (breast, uterine) Myocardial infarction Parkinson's disease Social History Smoking Status: Former Smoker Smokeless Tobacco Use: No Alcohol Use: remote history of etoh use Drug Use: none Marital Status: single Housing status: lives with family Occupational Status: retired Immunizations History of Influenza Vaccine: Unknown History of Tetanus Vaccine?: Unknown History of Pneumococcal: Unknown History of Hepatitis B Vaccine: Unknown Allergies Coded Allergies: Adenosine (Verified Allergy, Unknown, "pt not sure had it in er years ago ", 01/06/18) Home Medications Scheduled Apixaban (Eliquis), 2.5 MG PO BID Aspirin (Aspirin 81), 81 MG PO QAM Atorvastatin (Lipitor), 40 MG PO HS Cholecalciferol (Vitamin D), 2,000 UNITS PO QAM Docusate Sodium (Colace), 200 MG PO BID Fentanyl (Fentanyl), 25 MCG TD Q3D Gabapentin (Neurontin), 200 MG PO TID Lisinopril (Prinivil), 10 MG PO QAM Polyethylene Glycol 3350 (Miralax), 17 GM PO DAILY Scheduled PRN Acetaminophen (Tylenol), 2 TAB PO Q6H PRN for breakthrough pain Albuterol Hfa (Ventolin Hfa), 1-2 PUFFS INH Q6H PRN for SOB/Wheezing Lisinopril (Prinivil), 10 MG PO HS PRN for Hypertension Ondasetron Odt (Zofran Odt), 4 MG SL Q6H PRN for nausea Review of Systems ROS unobtainable due to lethargy. Physical Exam Vital Signs Date Time Temp Pulse Resp B/P (MAP) Pulse Ox O2 Delivery O2 Flow Rate FiO2 02/09/18 15:06 94 22 109/59 92 Room Air 02/09/18 14:32 95 12 100/56 95 Room Air 02/09/18 12:15 83 16 130/51 91 Room Air 02/09/18 12:15 96 Nasal Cannula 2.0 02/09/18 11:45 90 Room Air 02/09/18 11:26 107 02/09/18 11:15 36.8 89 12 146/94 93 Room Air General: Lethargic, opens her eyes to verbal stimuli, appears to be in pain with any palpation of extremities, unable to follow all commands, has difficulty with answering simpe questions. Head: Normocephalic, atraumatic ENT: PERRL, EOMI, no pharyngeal exudate, mucous membranes very dry Chest: Clear to auscultation, on room air, no adventitious breath sounds, maintaining her own airway Cardiac: Tachycardic heart rate in the 90s, + systolic murmur, no JVD, normal peripheral pulses, good capillary refill Abdominal: Diminished bowel sounds 4 quadrants, soft, + tender to palpation, no rebound, guarding or tenderness Extremities: Normal inspection, no peripheral edema or erythema, calfs nontender to palpation Psych: Normal mood and affect Neuro: + Lethargic, oriented to place only, strength diminished in upper and lower extremities bilaterally, rated 3/5 BUE, 1/5 BLE, unable to perform passive movement of the RLE, + 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 bilaterally, speech is somewhat slurred and garbled, babinski reflex intact Diagnostics Laboratory Results Results Past 24 Hours Test 02/09/18 11:25 02/09/18 12:04 02/09/18 13:19 02/09/18 14:56 Range/Units White Blood Count 4.44 4.8-10.8 K/uL Red Blood Count 4.08 4.2-5.4 M/uL Hemoglobin 12.4 12.0-16.0 g/dL Hematocrit 39.7 37-47 % Mean Corpuscular Volume 97.3 80-100 fL Mean Corpuscular Hemoglobin 30.4 25-34 pg Mean Corpuscular Hemoglobin Concent 31.2 32-36 g/dl Platelet Count 182 130-400 K/uL Mean Platelet Volume 9.5 7.4-10.4 fL Neutrophils (%) (Auto) 84.3 % Lymphocytes (%) (Auto) 14.2 % Monocytes (%) (Auto) 0.2 % Eosinophils (%) (Auto) 0.9 % Basophils (%) (Auto) 0.2 % Neutrophils # (Auto) 3.74 1.4-6.5 K/uL Lymphocytes # (Auto) 0.63 1.2-3.4 K/uL Monocytes # (Auto) 0.01 0.11-0.59 K/uL Eosinophils # (Auto) 0.04 0-0.5 K/uL Basophils # (Auto) 0.01 0-0.2 K/uL RDW Standard Deviation 48.1 36.4-46.3 fL RDW Coefficient of Variation 13.5 11.5-14.5 % Immature Granulocyte % (Auto) 0.2 % Immature Granulocyte # (Auto) 0.01 0.00-0.02 K/uL Prothrombin Time 10.6 9.0-12.0 SECONDS Prothromb Time International Ratio 1.0 0.9-1.1 Activated Partial Thromboplast Time 20.5 21.0-31.0 SECONDS Partial Thromboplastin Ratio 0.8 Sodium Level 140 136-145 mmol/L Potassium Level 4.3 3.5-5.1 mmol/L Chloride Level 107 98-107 mmol/L Carbon Dioxide Level 28 21-32 mmol/L Anion Gap 5.0 3-11 mmol/L Blood Urea Nitrogen 22 7-18 mg/dl Creatinine 0.93 0.60-1.20 mg/dl Est Creatinine Clear Calc Drug Dose 43.7 ml/min Estimated GFR () 65.0 Estimated GFR (Non- 56.0 BUN/Creatinine Ratio 24.1 10-20 Random Glucose 111 70-99 mg/dl Calcium Level 8.8 8.5-10.1 mg/dl Magnesium Level 1.9 1.8-2.4 mg/dl Total Bilirubin 1.4 0.2-1 mg/dl Direct Bilirubin 1.0 0-0.2 mg/dl Aspartate Amino Transf (AST/SGOT) 664 15-37 U/L Alanine Aminotransferase (ALT/SGPT) 369 12-78 U/L Alkaline Phosphatase 259 45-117 U/L Total Creatine Kinase 83 26-192 U/L Creatine Kinase MB 1.8 0.5-3.6 ng/ml Creatine Kinase MB Ratio 2.2 0-3.0 Troponin I < 0.015 0-0.045 ng/ml Total Protein 6.7 6.4-8.2 gm/dl Albumin 3.2 3.4-5.0 gm/dl Lactic Acid Level 3.6 0.4-2.0 mmol/L Ammonia < 10.0 11-32 umol/L Ethyl Alcohol mg/dL < 3.0 0-3 mg/dl Diagnostic Radiology CT ANGIOGRAPHY OF THE NECK WITH CONTRAST CLINICAL HISTORY: Confusion. Headache. Possible cerebrovascular accident. COMPARISON STUDY: CTA of the neck August 31, 2017. Technique: CT angiography of the carotid and vertebral arteries was obtained using Optiray 320 IV and 3D reconstruction on an independent workstation. NASCET criteria was utilized. A dose lowering technique was utilized adhering to the principles of ALARA. Findings: Extensive atherosclerotic plaque of the aortic arch is noted. Ulcerated plaque is noted. There is moderate plaque of the proximal bilateral subclavian arteries without significant stenosis. There is moderate plaque within both carotid bifurcations. There is 40% stenosis of the proximal left internal carotid artery that measures 2.5 mm at the area of narrowing and 4.4 mm distally. There is mild stenosis of approximately 30% of the proximal right internal carotid artery. The bilateral vertebral arteries are patent. There is no dissection within the major vasculature of the neck. There is no cervical lymphadenopathy. The CTA of the head will be reported separately. There is a 9 mm right lobe thyroid nodule which is unchanged. IMPRESSION: 1. Moderate atherosclerotic plaque within the proximal bilateral internal carotid arteries with 40% stenosis of the proximal left internal carotid artery and 30% stenosis of the proximal right internal carotid artery. 2. Patent vertebral arteries. No dissection. Electronically signed by: Dre Vargas M.D. 02/09/2018 2:49 PM Dictated Date/Time: 02/09/2018 2:41 PM The status of this report is Signed. CT SCAN OF THE ABDOMEN AND PELVIS WITH IV CONTRAST CLINICAL HISTORY: Generalized abdominal pain. COMPARISON STUDY: Abdominal CT dated 01/08/2018. TECHNIQUE: Following the IV administration of 119 cc of Optiray 320, CT scan of the abdomen and pelvis is performed from the lung bases to the proximal femora. Images are reviewed in the axial, sagittal, and coronal planes. IV contrast was administered without complication. A dose lowering technique was utilized adhering to the principles of ALARA. The examination is degraded by streak artifact from the patient's arms which could not be elevated above the abdomen as well as by motion artifact. FINDINGS: Lung bases: The heart is enlarged and without pericardial effusion. The coronary arteries and mitral annulus are densely calcified. Pacemaker leads are observed. Emphysematous change is observed. There is no airspace consolidation typical for pneumonia. There are small pleural effusions with associated atelectasis. Liver: The contrast-enhanced liver is normal in size, contour, and attenuation. There is moderate intrahepatic biliary ductal dilatation. The hepatic veins and portal veins are patent. Gallbladder: Surgically absent. The common bile duct is markedly dilated measuring up to 1.6 cm. Spleen: Normal in size and attenuation. Pancreas: Atrophic and grossly unremarkable. There is unchanged dilatation of the main pancreatic duct which measures up to 4.5 mm. Adrenal glands: Unremarkable. Kidneys: The contrast enhanced kidneys are atrophic and without hydronephrosis. The kidneys enhance symmetrically. Abdominal vasculature: There is advanced atherosclerotic calcification of the abdominal aorta. There is aneurysmal dilatation of the abdominal aorta at the level of the esophageal hiatus. This measures 3.0 cm in AP diameter and 3.8 cm in transverse diameter. An infrarenal abdominal aortic aneurysm is unchanged from previous, and measures 3.8 cm in AP diameter and 3.8 cm in transverse diameter. An infrarenal IVC filter is in place. Bowel: There is rectosigmoid fecal impaction and moderate to severe constipation. No bowel obstruction is seen. The appendix is well-visualized and normal. Peritoneum: There is no intraperitoneal free air or abdominal ascites. Lymphadenopathy: None. Pelvic viscera: The bladder is normal as visualized. The uterus is surgically absent. No adnexal lesion is seen. Skeletal structures: The skeletal structures are osteopenic. There is a mild superior endplate compression deformity of L1, unchanged from previous. Moderate to advanced lumbosacral spondylosis is observed. No lytic or blastic lesions are seen. Postlaminectomy change is seen throughout the lumbar spine. IMPRESSION: 1. Streak and motion compromised examination. 2. There is rectosigmoid fecal impaction and moderate to severe constipation. No bowel obstruction is identified. 3. There are 2 aneurysms of the abdominal aorta identified measuring up to 3.8 cm as detailed above. These are similar to previous. 4. Cardiomegaly and small pleural effusions. 5. There is intra and extrahepatic biliary ductal dilatation, as well as mild dilatation of the pancreatic duct. This is similar to prior studies and of indeterminant etiology and significance. Correlation was serum bilirubin levels is recommended. 6. Additional findings as above. Electronically signed by: Juan Galindo M.D. 02/09/2018 2:44 PM Dictated Date/Time: 02/09/2018 2:35 PM The status of this report is Signed. HEAD ANGIO WITH CONTRAST CLINICAL HISTORY: Confusion Mental status change TECHNIQUE: Transaxial acquisition with multi axial reformatted images COMPARISON STUDY: None FINDINGS: Findings of scattered atherosclerotic change of the [place] and vertebral basilar vasculature. No evidence for a significant or high-grade stenotic process. Minimal/mild scattered atherosclerotic change throughout. No evidence for aneurysm formation. No evidence for a high-grade or critical stenosis. IMPRESSION: Moderate scattered atherosclerotic change with no evidence for significant or critical stenotic process. No evidence for aneurysm formation. The above report was generated using voice recognition software. It may contain grammatical, syntax or spelling errors. Electronically signed by: Grant Fabian M.D. 02/09/2018 2:42 PM Dictated Date/Time: 02/09/2018 2:38 PM The status of this report is Signed. CHEST ONE VIEW PORTABLE CLINICAL HISTORY: Stroke mental status change COMPARISON STUDY: 01/06/2018 FINDINGS: Mild stable cardiomegaly. Chronic increase in density left lung base medially. No evidence for an acute infiltrate. Severe degenerative change of the shoulders bilaterally. IMPRESSION: Chronic change. No acute process. The above report was generated using voice recognition software. It may contain grammatical, syntax or spelling errors. Electronically signed by: Grant Fabian M.D. 02/09/2018 12:16 PM Dictated Date/Time: 02/09/2018 12:15 PM The status of this report is Signed. 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 Altered mental status, possible metabolic encephalopathy, possible sepsis of unknown source Hypotension - Admit the patient to telemetry - initial CT head/ CTA were unremarkable. - Neurology consult via tele completed in the ER by [place] [facility] - Dr. Diaz who did not think this was due to stroke. - Pt has been administered 1 L fluids in the ER, despite this patient has actually become more hypotensive. Another 1L ordered wide open, followed by 125ml/hr Discussed with ICU who is willing to accept the patient. Reverse trendelenburg position and BP maintaining 70/40s Will start on levophed peripherally for now - check blood cultures 2, UA, urine culture -Treat with broad-spectrum antibiotics with vancomycin and Zosyn -Repeat lactic acid now, initial was elevated at 3.6 upon time of arrival -Drug toxicology is in process, ethanol negative Elevated transaminases: - AST =664, ALT =369, alk phos= 259, total bili=1.4, direct =1.0, ammonia is negative -There is intrahepatic ductal dilatation as well as CBD and pancreatic ductal dilation- appears to be consistent with previous imaging studies, pt is s/p cholecystectomy. -Lipase in process. - Will trend LFTs Constipation - Appears severely constipated on imaging - patient's last admission during December also indicated severe constipation due to dehydration stool burden seen on CT - Continue on IVFs for now, encourage PO fluids. - Check orthostatic BPs - PT/OT on board Hx of CVA - Pt is currently on eliquis 2.5 mg bid - HOLD with possible bleed as above Paroxysmal Atrial fibrillation HTN Hx FL h/o SVT--pacemaker in place - HOLD aspirin 81 mg every morning, metoprolol succinate 12.5 mg p.o. twice daily Hx infrarenal AAA - measured 4.1 cm in Dec, recheck today is 3.8 cm - As per CT slightly larger than last fall - Follows with Dr. Mathew as an outpt. Chronic pain syndrome - Hold fentanyl patch 25 mcg with lethargy at this time, and gabapentin 200 mg p.o. 3 times daily Hyperlipidemia- Continue atorvastatin 40 mg p.o. at bedtime Hx UTI - Pt has outpatient prn Rx of nitrofurantoin but has not used this recently. GERD - Cont protonix 40 mg QAM HLD - Continue Lipitor 40 mg PO qd Paroxysmal a-fib, - Continue amiodarone 200 mg PO qd Chronic pain - Hold fentanyl 25 mcg TD q72h. Polyneuropathy - Continue gabapentin 200 mg PO TID once able to tolerate po meds Asthma - Continue albuterol inhaler prn SOB/wheezing Code Status: FULL DVT ppx: heparin subq CODE STATUS: DNR - discussion was held with MARIAH Marquez (Y=[phone]), and her daughter. They are in agreement with this. Time spent coordinating care, lab, chart, imaging review, discussion with consultants, and family was 118 minutes. Resuscitation Status VTE Prophylaxis Will order VTE Prophylaxis: No Reason for no VTE drug order: Contraindicated Reason no Mechanical VTE Order: Contraindicated Reviewed: Pt Seen/Exam by Me History Pt with AMS. Not responsive to stimuli other than painful. Per jewel supervisor, pt had some response to narcan. Family denies current use but has hx of use and spinal surgery. Agree with HPI/ROS as noted by PA General Appearance: WD/WN, no apparent distress Respiratory: normal breath sounds, no respiratory distress Cardiovascular: normal peripheral pulses, regular rate, rhythm Gastrointestinal: soft, tenderness (diffuse) Extremities: non-tender, no pedal edema Neurologic/Psychiatric: other (pt is not alert, responds mildly to painful stimulus) Skin Characteristics: normal color, warm/dry Assessment/Plan Agree with plan as outlined above AMS with uncertain etiology ?? narcotic overdose given some response to narcan Monitor in ICU overnight on narcan drip
[2018-02-09] MEDS ORDERED: ONDANSETRON INJ 2 MG/ML 2 ML VIAL IV PRN (15:45)
[2018-02-09] MEDS ORDERED: VANCOMYCIN CONSULT ACTIVE PRN ×2 (15:45)
[2018-02-09] MEDS ORDERED: ACETAMINOPHEN 325 MG TAB PO PRN (15:45)
[2018-02-09] MEDS ORDERED: POLYETHYLENE (MIRALAX) 17 GM PACK PO PRN (15:45)
[2018-02-09] MEDS ORDERED: PIPERACILL/TAZOBAC CONSULT ACTIVE PRN (15:45)
[2018-02-09] MEDS ORDERED: SODIUM CHLORIDE 0.9% 1000ML 1,000 ML IV STA (15:46)
[2018-02-09] MEDS ORDERED: NOREPINEPHRINE BIT INJ 4 MG in DEXTROSE 5% 250ML 250 ML IV PRN (16:30)
[2018-02-09] MEDS ORDERED: VANCOMYCIN IV 2,000 MG in SODIUM CHLORIDE 0.9% 500ML 500 ML IV STA (16:34)
[2018-02-09] MEDS ORDERED: PIPERACILL/TAZOBAC IV 4.5 GM in DEXTROSE 5% 100ML 100 ML IV SCH (16:45)
--- NOTE | 2018-02-09 16:47 | DIAGNOSTIC IMAGING REPORT ---
CT SCAN OF THE BRAIN WITHOUT IV CONTRAST CLINICAL HISTORY: Change in mental status. COMPARISON STUDY: CT of the brain dated 02/09/2018. TECHNIQUE: Unenhanced axial CT scan of the brain is performed from the vertex to the skull base. A dose lowering technique was utilized adhering to the principles of ALARA. CT DOSE: 614.27 mGy.cm FINDINGS: Brain parenchyma: There are age-related involutional changes noting mild subcortical and periventricular microangiopathic change. Encephalomalacia from a small remote left occipital infarct is unchanged. There is no hemorrhage, mass effect, or evidence of acute territorial ischemia by CT criteria. [place]-white matter is preserved. No extra-axial fluid collection is seen. Residual IV contrast is present from earlier examinations. Ventricles, sulci, cisterns: Prominent secondary to involutional change. Intracranial vasculature: There is atherosclerotic calcification of the cavernous carotid and vertebral arteries. Calvarium: Unremarkable. Sinuses and mastoids: The visualized paranasal sinuses are clear. The mastoid air cells are well pneumatized. Orbits: The bony orbits are grossly intact. There are bilateral ocular lens implants. IMPRESSION: There is no hemorrhage, mass effect, or evidence of acute territorial ischemia by CT criteria. Electronically signed by: Juan Galindo M.D. 02/09/2018 4:45 PM Dictated Date/Time: 02/09/2018 4:42 PM
[2018-02-09 16:53] LABS: PHOSPHORUS 3.1 mg/dl (2.5-4.9)
[2018-02-09] MEDS ORDERED: NALOXONE HCL 0.4 MG/1 ML VIAL/CARP IV STA ×3 (16:53→17:10)
[2018-02-09] MEDS ORDERED: FENTANYL PATCH REMOVE & WASTE STA (16:53)
--- NOTE | 2018-02-09 17:00 | DIAGNOSTIC IMAGING REPORT ---
CT SCAN OF THE ABDOMEN AND PELVIS WITHOUT IV CONTRAST CLINICAL HISTORY: Unresponsive. Abdominal aortic aneurysm. COMPARISON STUDY: Abdominal CT scan performed earlier the same day 02/09/2018 and study dated 01/08/2018. TECHNIQUE: CT scan of the abdomen and pelvis is performed from the lung bases to the proximal femora. Images are reviewed in the axial, sagittal, and coronal planes. IV contrast was not administered for this examination. A dose lowering technique was utilized adhering to the principles of ALARA. The examination is degraded by streak artifact from the patient's arms which could not be elevated above the abdomen as well as by motion artifact. There is residual IV contrast present from today's earlier examination. FINDINGS: Lung bases: The heart is enlarged and without pericardial effusion. The coronary arteries and mitral annulus are densely calcified. Pacemaker leads are noted. Emphysematous change is observed. There is no airspace consolidation typical for pneumonia. There are small pleural effusions with associated atelectasis. Liver: The unenhanced liver is normal in size, contour, and attenuation. There is moderate intrahepatic biliary ductal dilatation. Gallbladder: Surgically absent. The common bile duct is markedly dilated measuring up to 1.6 cm. Spleen: Normal in size and attenuation. Pancreas: Atrophic and grossly unremarkable. There is unchanged dilatation of the main pancreatic duct which measures up to 4.5 mm. Adrenal glands: Unremarkable. Kidneys: The unenhanced kidneys are atrophic and without hydronephrosis. There is significant cortical retention of contrast within the renal parenchyma. Abdominal vasculature: There is advanced atherosclerotic calcification of the abdominal aorta. There is aneurysmal dilatation of the abdominal aorta at the level of the esophageal hiatus. This measures 3.0 cm in AP diameter and 3.8 cm in transverse diameter. An infrarenal abdominal aortic aneurysm is unchanged from previous, and measures 3.8 cm in AP diameter and 3.8 cm in transverse diameter. An infrarenal IVC filter is in place. Bowel: There is rectosigmoid fecal impaction and moderate to severe constipation. No bowel obstruction is seen. The appendix is well-visualized and normal. Peritoneum/retroperitoneum: There is no intraperitoneal free air or abdominal ascites. No retroperitoneal hemorrhage is identified. Lymphadenopathy: None. Pelvic viscera: The bladder is decompressed and filled with excreted contrast. The uterus is surgically absent. No adnexal lesion is seen. Skeletal structures: The skeletal structures are osteopenic. There is a mild superior endplate compression deformity of L1, unchanged from previous. Moderate to advanced lumbosacral spondylosis is observed. No lytic or blastic lesions are seen. Postlaminectomy change is seen throughout the lumbar spine. IMPRESSION: 1. Streak and motion compromised examination. 2. No significant change from today's earlier examination. 3. There is rectosigmoid fecal impaction and moderate to severe constipation. No bowel obstruction is identified. 4. There are 2 aneurysms of the abdominal aorta identified measuring up to 3.8 cm as detailed above. These are similar to previous. 5. Cardiomegaly and small pleural effusions. 6. There is intra and extrahepatic biliary ductal dilatation, as well as mild dilatation of the pancreatic duct. This is similar to prior studies and of indeterminant etiology and significance. Correlation was serum bilirubin levels is recommended. 7. There is significant cortical retention of contrast within the renal parenchyma. This is nonspecific and can be seen in the setting of acute renal injury. Clinical correlation will be required. 8. Additional findings as above. Electronically signed by: Juan Galindo M.D. 02/09/2018 4:59 PM Dictated Date/Time: 02/09/2018 4:54 PM
[2018-02-09] MEDS ORDERED: FLUMAZENIL 0.1 MG/1 ML 10 ML VIAL IV STA (17:05)
[2018-02-09] MEDS ORDERED: NALOXONE HCL INJ 5 MG in SODIUM CHLORIDE 0.9% 100ML 100 ML IV STA (17:10)
[2018-02-09] MEDS ORDERED: NALOXONE HCL INJ 5 MG in SODIUM CHLORIDE 0.9% 100ML 100 ML IV SCH (17:14)
[2018-02-09] MEDS ORDERED: NALOXONE HCL INJ 5 MG in SODIUM CHLORIDE 0.9% 100ML 100 ML IV PRN (17:15)
[2018-02-09] MEDS ORDERED: NOREPINEPHRINE BIT INJ 8 MG in DEXTROSE 5% 500ML 500 ML IV PRN (18:30)
--- NOTE | 2018-02-09 18:55 | Critical Care Consultation ---
Critical Care Consultation Date of Consultation: Feb 09, 2018. Attending Physician: Doris Cornell DO Reason for Consultation: Respiratory Depression,Hypotension, Altered Mental Status History of Present Illness She presented to the hospital with progressive confusion and hemodynamic instability. Airway control has become a concern. History of headache noted prior to the presentation. History of chronic pain with use of Neurontin and Duragesic noted. Underlying atrial fib. She has undergone an extensive evaluation including two CT scans of the brain, as well as CT of the abdomen. Labs have been noteworthy for elevation of LFTs and mild elevation of lactic acid. The tempo of her decline has been sudden. Apparently was in her usual state of health until early this AM suggesting a rapid temp. Her LOC has been on the decline all day. With the removal of her Duragesic and administration of Narcan brief episodes of increased orientation and alertness noted. Family reports no access to narcotics and initial toxicology screen negative. Past Medical/Surgical History --atrial fib --Spine Surgery --Chronic Anticoagulation --Constipation --HTN -- Family History Cancer (breast, uterine) Myocardial infarction Parkinson's disease Negative x2 Social History Smoking Status: Former Smoker Smokeless Tobacco Use: No Alcohol Use: remote history of etoh use Drug Use: none Marital Status: single Housing Status: lives with family Occupation Status: retired Allergies Coded Allergies: Adenosine (Verified Allergy, Unknown, "pt not sure had it in er years ago ", 01/06/18) Home Medications Scheduled Apixaban (Eliquis), 2.5 MG PO BID Aspirin (Aspirin 81), 81 MG PO QAM Atorvastatin (Lipitor), 40 MG PO HS Cholecalciferol (Vitamin D), 2,000 UNITS PO QAM Docusate Sodium (Colace), 200 MG PO BID Fentanyl (Fentanyl), 25 MCG TD Q3D Gabapentin (Neurontin), 200 MG PO TID Lisinopril (Prinivil), 10 MG PO QAM Polyethylene Glycol 3350 (Miralax), 17 GM PO DAILY Scheduled PRN Acetaminophen (Tylenol), 2 TAB PO Q6H PRN for breakthrough pain Albuterol Hfa (Ventolin Hfa), 1-2 PUFFS INH Q6H PRN for SOB/Wheezing Lisinopril (Prinivil), 10 MG PO HS PRN for Hypertension Ondasetron Odt (Zofran Odt), 4 MG SL Q6H PRN for nausea Current Inpatient Medications Current Inpatient Medications Medications (Trade) Dose Ordered Sig/Yifan Route Start Time Stop Time Status Last Admin Dose Admin Ioversol (Optiray 320) 100 ml UD PRN IV 02/09/18 12:15 02/13/18 12:14 Sodium Chloride 1,000 ml @ 125 mls/hr Q8H IV 02/09/18 18:00 03/11/18 17:59 Acetaminophen (Tylenol Tab) 650 mg Q4H PRN PO 02/09/18 15:45 03/11/18 15:44 Ondansetron HCl (Zofran Inj) 4 mg Q6H PRN IV 02/09/18 15:45 03/11/18 15:44 Polyethylene (Miralax Powder Packet) 17 gm DAILY PRN PO 02/09/18 15:45 03/11/18 15:44 Vancomycin HCl 2000 mg/Sodium Chloride 540 ml @ 200 mls/hr NOW STAT IV 02/09/18 16:34 02/09/18 19:15 02/09/18 17:20 200 MLS/HR Vancomycin HCl 500 mg/Sodium Chloride 260 ml @ 125 mls/hr Q12 IV 02/09/18 21:00 02/11/18 20:59 UNV Miscellaneous Information (Consult) 1 ea UD PRN N/A 02/09/18 15:45 03/11/18 15:44 Piperacillin Sod/ Tazobactam Sod 4.5 gm/Dextrose 120 ml @ 200 mls/hr Q6H IV 02/09/18 15:45 02/11/18 15:44 UNV Miscellaneous Information (Consult) 1 ea UD PRN N/A 02/09/18 15:45 03/11/18 15:44 Cholecalciferol (Vitamin D Tab) 2,000 inter.unit QAM PO 02/10/18 09:00 03/12/18 08:59 Docusate Sodium (coLACE CAP) 200 mg BID PO 02/09/18 21:00 03/11/18 20:59 Gabapentin (Neurontin Cap) 200 mg TID PO 02/09/18 21:00 03/11/18 20:59 Polyethylene (Miralax Powder Packet) 17 gm DAILY PO 02/10/18 09:00 03/12/18 08:59 Bisacodyl (Dulcolax Supp) 10 mg DAILY OH 02/09/18 16:00 02/10/18 09:01 Norepinephrine Bitartrate 8 mg/ Dextrose 508 ml @ 0 mls/hr Q0M PRN IV 02/09/18 18:30 03/11/18 18:29 Norepinephrine Bitartrate 4 mg/ Dextrose 254 ml @ 0 mls/hr Q0M PRN IV 02/09/18 16:30 02/09/18 20:00 Naloxone HCl 5 mg/ Sodium Chloride 112.5 ml @ 0 mls/hr Q0M IV 02/09/18 17:14 03/11/18 17:13 Review of Systems She is essential unresponsive except for brief periods of increased consciousness. ROS was unhelpful. Physical Exam Date Time Temp Pulse Resp B/P (MAP) Pulse Ox O2 Delivery O2 Flow Rate FiO2 02/09/18 18:11 147/67 02/09/18 18:10 125 21 100 02/09/18 18:06 95/68 02/09/18 18:05 132 27 69 02/09/18 18:01 146/111 02/09/18 18:00 134 13 87 02/09/18 17:56 119/78 02/09/18 17:55 120 14 02/09/18 17:51 131/73 02/09/18 17:50 128 19 02/09/18 17:46 114/65 02/09/18 17:45 132 23 02/09/18 17:41 162/131 02/09/18 17:40 119 23 96 02/09/18 17:36 154/79 02/09/18 17:35 147 27 73 02/09/18 17:31 156/111 02/09/18 17:30 144 23 100 02/09/18 17:26 151/104 02/09/18 17:25 131 30 02/09/18 17:21 145/90 02/09/18 17:20 144 17 02/09/18 17:15 131 21 02/09/18 17:11 141/64 02/09/18 17:10 141 22 02/09/18 17:06 124/85 02/09/18 17:05 135 25 100 02/09/18 17:02 100/61 02/09/18 17:00 131 21 85 1518 16:59 129/73 18 16:56 150/71 18 16:55 99 36 100 18 16:54 68/39 18 16:50 13 18 16:25 87 92 02/09/18 16:22 74/42 02/09/18 16:20 78 27 94 02/09/18 16:19 70/40 02/09/18 16:17 76/42 02/09/18 16:16 75/40 02/09/18 16:15 86 18 94 02/09/18 16:10 93 20 89 02/09/18 16:05 78 20 94 02/09/18 16:04 115/51 02/09/18 16:03 91/45 02/09/18 16:01 76/43 02/09/18 16:00 84 25 97 02/09/18 15:55 93 25 91 02/09/18 15:51 87/46 02/09/18 15:50 94 17 94 02/09/18 15:46 87/45 02/09/18 15:45 68 23 87/45 95 Room Air 02/09/18 15:45 96 21 93 02/09/18 15:40 91 26 94 02/09/18 15:35 92 26 90 18 15:31 90/54 18 15:30 94 24 90 02/09/18 15:25 93 28 92 02/09/18 15:20 92 29 92 18 15:16 79/39 02/09/18 15:15 93 31 88 02/09/18 15:10 96 23 94 18 15:06 94 22 109/59 92 Room Air 02/09/18 15:05 90 24 92 1518 15:01 109/59 02/09/18 15:00 91 23 91 02/09/18 14:55 94 20 92 18 14:50 91 22 90 1518 14:46 119/59 18 14:45 95 24 91 1518 14:40 94 25 94 15 14:35 94 24 95 02/09/18 14:32 95 12 100/56 95 Room Air 02/09/18 14:31 100/56 02/09/18 14:30 94 24 94 02/09/18 14:29 120/61 02/09/18 13:25 76 26 96 02/09/18 13:20 76 22 98 02/09/18 13:17 122/57 02/09/18 13:15 80 17 99 02/09/18 13:10 80 20 100 02/09/18 13:05 79 18 84 02/09/18 13:01 120/57 02/09/18 13:00 80 15 100 02/09/18 12:55 81 26 98 02/09/18 12:50 79 18 98 02/09/18 12:46 109/38 02/09/18 12:45 81 18 99 02/09/18 12:40 84 19 99 02/09/18 12:35 83 20 98 02/09/18 12:31 111/51 02/09/18 12:30 83 26 97 02/09/18 12:25 83 21 97 02/09/18 12:20 84 20 99 02/09/18 12:16 130/51 02/09/18 12:15 83 16 130/51 91 Room Air 02/09/18 12:15 82 24 98 02/09/18 12:15 96 Nasal Cannula 2.0 02/09/18 12:10 83 20 95 02/09/18 12:05 85 20 91 02/09/18 12:01 128/61 02/09/18 12:00 86 16 91 02/09/18 11:55 88 20 91 02/09/18 11:50 90 18 91 02/09/18 11:46 152/67 02/09/18 11:45 90 Room Air 02/09/18 11:45 90 23 94 02/09/18 11:44 137/74 02/09/18 11:26 107 02/09/18 11:25 112 24 02/09/18 11:19 166/94 02/09/18 11:15 36.8 89 12 146/94 93 Room Air Unresponsive except for painful stimulation Pupils very small and symmetric some oral pharyngeal airway obstruction Respiratory--exchange is adequate Cardio--No substantial edema.---rate is rapid GI--no guarding or rebound. -negative Musculo--no trauma Neuro--intermittent improvement in LOC. Appears related to Narcan dosing. I do not get a sense of focal deficits. Psych--unhelpful Derm--stasis noted. Laboratory Results Last 24 Hours Test 02/09/18 11:25 02/09/18 12:04 02/09/18 13:19 02/09/18 15:10 White Blood Count 4.44 K/uL Red Blood Count 4.08 M/uL Hemoglobin 12.4 g/dL Hematocrit 39.7 % Mean Corpuscular Volume 97.3 fL Mean Corpuscular Hemoglobin 30.4 pg Mean Corpuscular Hemoglobin Concent 31.2 g/dl Platelet Count 182 K/uL Mean Platelet Volume 9.5 fL Neutrophils (%) (Auto) 84.3 % Lymphocytes (%) (Auto) 14.2 % Monocytes (%) (Auto) 0.2 % Eosinophils (%) (Auto) 0.9 % Basophils (%) (Auto) 0.2 % Neutrophils # (Auto) 3.74 K/uL Lymphocytes # (Auto) 0.63 K/uL Monocytes # (Auto) 0.01 K/uL Eosinophils # (Auto) 0.04 K/uL Basophils # (Auto) 0.01 K/uL RDW Standard Deviation 48.1 fL RDW Coefficient of Variation 13.5 % Immature Granulocyte % (Auto) 0.2 % Immature Granulocyte # (Auto) 0.01 K/uL Prothrombin Time 10.6 SECONDS Prothromb Time International Ratio 1.0 Activated Partial Thromboplast Time 20.5 SECONDS Partial Thromboplastin Ratio 0.8 Sodium Level 140 mmol/L Potassium Level 4.3 mmol/L Chloride Level 107 mmol/L Carbon Dioxide Level 28 mmol/L Anion Gap 5.0 mmol/L Blood Urea Nitrogen 22 mg/dl Creatinine 0.93 mg/dl Est Creatinine Clear Calc Drug Dose 43.7 ml/min Estimated GFR () 65.0 Estimated GFR (Non- 56.0 BUN/Creatinine Ratio 24.1 Random Glucose 111 mg/dl Calcium Level 8.8 mg/dl Magnesium Level 1.9 mg/dl Total Bilirubin 1.4 mg/dl Direct Bilirubin 1.0 mg/dl Aspartate Amino Transf (AST/SGOT) 664 U/L Alanine Aminotransferase (ALT/SGPT) 369 U/L Alkaline Phosphatase 259 U/L Total Creatine Kinase 83 U/L Creatine Kinase MB 1.8 ng/ml Creatine Kinase MB Ratio 2.2 Troponin I < 0.015 ng/ml Total Protein 6.7 gm/dl Albumin 3.2 gm/dl Lipase 110 U/L Lactic Acid Level 3.6 mmol/L Ammonia < 10.0 umol/L Ethyl Alcohol mg/dL < 3.0 mg/dl Urine Color YELLOW Urine Appearance SL CLOUDY Urine pH 5.5 Urine Specific [place] <= 1.005 Urine Protein NEG Urine Glucose (UA) NEG Urine Ketones NEG Urine Occult Blood TRACE Urine Nitrite NEG Urine Bilirubin NEG Urine Urobilinogen POS Urine Leukocyte Esterase NEG Urine RBC 0-4 /hpf Urine WBC 1-5 /hpf Urine Epithelial Cells >30 /lpf Urine Calcium Oxalate Crystals PRESENT Urine Bacteria 1+ Urine Opiates Screen NEG Urine Methadone, Qualitative NEG Urine Barbiturates NEG Urine Phencyclidine (PCP) Level NEG Ur Amphetamine/Methamphetamine NEG MDMA (Ecstasy) Screen NEG Urine Benzodiazepines Screen NEG Urine Cocaine Metabolite NEG Urine Marijuana (THC) NEG Test 02/09/18 16:20 02/09/18 18:18 Lactic Acid Level 1.8 mmol/L Phosphorus Level 3.1 mg/dl Magnesium Level 1.9 mg/dl Diagnostic Results No electrolyte issues. As noted some elevation of LFTs. CBC ok. UA negative. Tox negative. Images noted--close look at brainstem inconclusive. Assessment & Plan Acute and progressive decline in LOC--Airway control concerns. Small pupils. ? response to Narcan but not consistent. 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 1. Cardio--Agree with the fluids given. May require some rate control. Given the variable B/P--digoxin would be acceptable 2. Pulmonary--nasal trumpet is good idea. A conservative approach with desire not to have intubation is appropriate 3. Neuro--? could be midbrain---Hold the Xa recommended for now. I do not recommend heparin . Repeat image in a day may be help. She would not tolerate better images which would be diagnostic. SAH would require LP but given status this is not safely obtainable and information would not change the approach. 4. GI--LFT bump. Check tylenol level 5. ID--antibiotics given....no clear source. Will need requirement reevaluated in 24 hours 6. Tox--screen is negative--? response to narcan--Tylenol level 7. Dispo--POA for health care contacted. No ACLS measures requested and seems appropriate.
[2018-02-09] MEDS: SODIUM CHLORIDE 0.9% 1000ML 1,000 ML IV SCH ×2 (19:41→23:31)
--- NOTE | 2018-02-09 19:55 | EMERGENCY ROOM VISIT NOTE ---
ED Visit Note Received patient in signout. History and physical verified by me. called to bedside as the patient has become unresponsive. She had a fentanyl patch on which was removed by me and discarded. The patient was given multiple doses of Narcan which results in her waking up. She is then able to tell me her name as well as the date as well as the month. She is also oriented to where she is. The patient then falls back asleep without continuous stimulation. Because of this she was placed on a Narcan drip. I did discuss the case with the director of diagnostic imaging. 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 (10) ESOPHAGEAL REFLUX Status: Chronic (11) HYPERLIPIDEMIA NEC/NOS Status: Resolved (12) HYPERTENSION NOS Status: Resolved (13) Intractable back pain Status: Resolved (14) Nausea and vomiting Status: Resolved (15) OLD MYOCARDIAL INFARCT Status: Resolved (16) PERIPH VASCULAR DIS NOS Status: Resolved (17) Severe hypertension Status: Resolved (18) Thoracic spinal stenosis Status: Chronic Surgical Problems: (1) S/P laminectomy Status: Resolved Current/Historical Medications Scheduled Apixaban (Eliquis), 2.5 MG PO BID Aspirin (Aspirin 81), 81 MG PO QAM Atorvastatin (Lipitor), 40 MG PO HS Cholecalciferol (Vitamin D), 2,000 UNITS PO QAM Docusate Sodium (Colace), 200 MG PO BID Fentanyl (Fentanyl), 25 MCG TD Q3D Gabapentin (Neurontin), 200 MG PO TID Lisinopril (Prinivil), 10 MG PO QAM Polyethylene Glycol 3350 (Miralax), 17 GM PO DAILY Scheduled PRN Acetaminophen (Tylenol), 2 TAB PO Q6H PRN for breakthrough pain Albuterol Hfa (Ventolin Hfa), 1-2 PUFFS INH Q6H PRN for SOB/Wheezing Lisinopril (Prinivil), 10 MG PO HS PRN for Hypertension Ondasetron Odt (Zofran Odt), 4 MG SL Q6H PRN for nausea Allergies Coded Allergies: Adenosine (Verified Allergy, Unknown, "pt not sure had it in er years ago ", 01/06/18) Vital Signs Date Time Temp Pulse Resp B/P (MAP) Pulse Ox O2 Delivery O2 Flow Rate FiO2 02/09/18 15:55 93 25 91 02/09/18 15:51 87/46 02/09/18 15:50 94 17 94 02/09/18 15:46 87/45 02/09/18 15:45 68 23 87/45 95 Room Air 02/09/18 15:45 96 21 93 02/09/18 15:40 91 26 94 02/09/18 15:35 92 26 90 02/09/18 15:31 90/54 02/09/18 15:30 94 24 90 02/09/18 15:25 93 28 92 02/09/18 15:20 92 29 92 02/09/18 15:16 79/39 02/09/18 15:15 93 31 88 02/09/18 15:10 96 23 94 02/09/18 15:06 94 22 109/59 92 Room Air 02/09/18 15:05 90 24 92 02/09/18 15:01 109/59 02/09/18 15:00 91 23 91 02/09/18 14:55 94 20 92 02/09/18 14:50 91 22 90 02/09/18 14:46 119/59 02/09/18 14:45 95 24 91 02/09/18 14:40 94 25 94 02/09/18 14:35 94 24 95 02/09/18 14:32 95 12 100/56 95 Room Air 02/09/18 14:31 100/56 02/09/18 14:30 94 24 94 02/09/18 14:29 120/61 02/09/18 13:25 76 26 96 02/09/18 13:20 76 22 98 02/09/18 13:17 122/57 02/09/18 13:15 80 17 99 02/09/18 13:10 80 20 100 02/09/18 13:05 79 18 84 02/09/18 13:01 120/57 02/09/18 13:00 80 15 100 02/09/18 12:55 81 26 98 02/09/18 12:50 79 18 98 02/09/18 12:46 109/38 02/09/18 12:45 81 18 99 02/09/18 12:40 84 19 99 02/09/18 12:35 83 20 98 02/09/18 12:31 111/51 02/09/18 12:30 83 26 97 02/09/18 12:25 83 21 97 02/09/18 12:20 84 20 99 02/09/18 12:16 130/51 02/09/18 12:15 83 16 130/51 91 Room Air 02/09/18 12:15 82 24 98 02/09/18 12:15 96 Nasal Cannula 2.0 02/09/18 12:10 83 20 95 02/09/18 12:05 85 20 91 02/09/18 12:01 128/61 02/09/18 12:00 86 16 91 02/09/18 11:55 88 20 91 02/09/18 11:50 90 18 91 02/09/18 11:46 152/67 02/09/18 11:45 90 Room Air 02/09/18 11:45 90 23 94 02/09/18 11:44 137/74 02/09/18 11:26 107 02/09/18 11:25 112 24 02/09/18 11:19 166/94 02/09/18 11:15 36.8 89 12 146/94 93 Room Air Laboratory Results 02/09/18 11:25 Red Blood Count 4.08, Mean Corpuscular Volume 97.3, Mean Corpuscular Hemoglobin 30.4, Mean Corpuscular Hemoglobin Concent 31.2, Mean Platelet Volume 9.5, Neutrophils (%) (Auto) 84.3, Lymphocytes (%) (Auto) 14.2, Monocytes (%) (Auto) 0.2, Eosinophils (%) (Auto) 0.9, Basophils (%) (Auto) 0.2, Neutrophils # (Auto) 3.74, Lymphocytes # (Auto) 0.63, Monocytes # (Auto) 0.01, Eosinophils # (Auto) 0.04, Basophils # (Auto) 0.01 02/09/18 11:25 Test 02/09/18 11:25 02/09/18 13:19 02/09/18 15:10 White Blood Count 4.44 K/uL (4.8-10.8) Red Blood Count 4.08 M/uL (4.2-5.4) Hemoglobin 12.4 g/dL (12.0-16.0) Hematocrit 39.7 % (37-47) Mean Corpuscular Volume 97.3 fL (80-100) Mean Corpuscular Hemoglobin 30.4 pg (25-34) Mean Corpuscular Hemoglobin Concent 31.2 g/dl (32-36) Platelet Count 182 K/uL (130-400) Mean Platelet Volume 9.5 fL (7.4-10.4) Neutrophils (%) (Auto) 84.3 % Lymphocytes (%) (Auto) 14.2 % Monocytes (%) (Auto) 0.2 % Eosinophils (%) (Auto) 0.9 % Basophils (%) (Auto) 0.2 % Neutrophils # (Auto) 3.74 K/uL (1.4-6.5) Lymphocytes # (Auto) 0.63 K/uL (1.2-3.4) Monocytes # (Auto) 0.01 K/uL (0.11-0.59) Eosinophils # (Auto) 0.04 K/uL (0-0.5) Basophils # (Auto) 0.01 K/uL (0-0.2) RDW Standard Deviation 48.1 fL (36.4-46.3) RDW Coefficient of Variation 13.5 % (11.5-14.5) Immature Granulocyte % (Auto) 0.2 % Immature Granulocyte # (Auto) 0.01 K/uL (0.00-0.02) Prothrombin Time 10.6 SECONDS (9.0-12.0) Prothromb Time International Ratio 1.0 (0.9-1.1) Activated Partial Thromboplast Time 20.5 SECONDS (21.0-31.0) Partial Thromboplastin Ratio 0.8 Anion Gap 5.0 mmol/L (3-11) Est Creatinine Clear Calc Drug Dose 43.7 ml/min Estimated GFR () 65.0 Estimated GFR (Non- 56.0 BUN/Creatinine Ratio 24.1 (10-20) Calcium Level 8.8 mg/dl (8.5-10.1) Total Bilirubin 1.4 mg/dl (0.2-1) Direct Bilirubin 1.0 mg/dl (0-0.2) Aspartate Amino Transf (AST/SGOT) 664 U/L (15-37) Alanine Aminotransferase (ALT/SGPT) 369 U/L (12-78) Alkaline Phosphatase 259 U/L (45-117) Total Creatine Kinase 83 U/L (26-192) Creatine Kinase MB 1.8 ng/ml (0.5-3.6) Creatine Kinase MB Ratio 2.2 (0-3.0) Troponin I < 0.015 ng/ml (0-0.045) Total Protein 6.7 gm/dl (6.4-8.2) Albumin 3.2 gm/dl (3.4-5.0) Lipase 110 U/L (73-393) Ammonia < 10.0 umol/L (11-32) Ethyl Alcohol mg/dL < 3.0 mg/dl (0-3) Urine Color YELLOW Urine Appearance SL CLOUDY (CLEAR) Urine pH 5.5 (4.5-7.5) Urine Specific [place] <= 1.005 (1.000-1.030) Urine Protein NEG (NEG) Urine Glucose (UA) NEG (NEG) Urine Ketones NEG (NEG) Urine Occult Blood TRACE (NEG) Urine Nitrite NEG (NEG) Urine Bilirubin NEG (NEG) Urine Urobilinogen POS (NEG) Urine Leukocyte Esterase NEG (NEG) Urine RBC 0-4 /hpf (0-4) Urine WBC 1-5 /hpf (0-5) Urine Epithelial Cells >30 /lpf (0-5) Urine Calcium Oxalate Crystals PRESENT (NONE PRSENT) Urine Bacteria 1+ (NEG) Urine Opiates Screen NEG (NEG) Urine Methadone, Qualitative NEG (NEG) Urine Barbiturates NEG (NEG) Urine Phencyclidine (PCP) Level NEG (NEG) Ur Amphetamine/Methamphetamine NEG (NEG) MDMA (Ecstasy) Screen NEG (NEG) Urine Benzodiazepines Screen NEG (NEG) Urine Cocaine Metabolite NEG (NEG) Urine Marijuana (THC) NEG (NEG) Medications Administered Medications (Trade) Dose Ordered Sig/Yifan Route Start Time Stop Time Status Last Admin Dose Admin Ondansetron HCl (Zofran Inj) 4 mg STK-MED ONCE .ROUTE 02/09/18 11:27 02/09/18 11:28 DC 02/09/18 11:27 4 MG Sodium Chloride 500 ml @ 999 mls/hr Q31M STAT IV 02/09/18 12:40 02/09/18 13:10 DC 02/09/18 12:40 999 MLS/HR Sodium Chloride 500 ml @ 999 mls/hr Q31M STAT IV 02/09/18 14:40 02/09/18 15:10 DC 02/09/18 14:40 999 MLS/HR Sodium Chloride 1,000 ml @ 999 mls/hr Q1H1M STAT IV 02/09/18 15:46 02/09/18 16:46 DC 02/09/18 15:46 999 MLS/HR Departure Information Impression Primary Impression: Change in mental status Additional Impressions: Confusion Headache Elevated liver enzymes Nausea and vomiting Dispostion Being Evaluated By Hospitalist Referrals Alexei Redman M.D. (PCP) Forms HOME CARE DOCUMENTATION FORM, IMPORTANT VISIT INFORMATION Patient Instructions [facility] Problem Qualifiers
[2018-02-09] MEDS: GABAPENTIN 100 MG CAP PO SCH (20:58)
[2018-02-09] MEDS: BISACODYL 10 MG SUPP PR SCH (20:58)
[2018-02-09] MEDS: DOCUSATE SODIUM 100 MG CAP PO SCH (20:58)
[2018-02-09] MEDS ORDERED: ATORVASTATIN 20 MG TAB PO SCH (21:00)
[2018-02-09] MEDS ORDERED: APIXABAN 2.5 MG TAB PO SCH (21:00)
--- NOTE | 2018-02-09 21:17 | Pharmacy Progress Note ---
Pharmacy Antibiotic Consult Date of Service: Feb 09, 2018. Pharmacy Dosing Scope Pharmacy is consulted to initiate vancomycin and Zosyn IV dosing therapy, order appropriate labs and adjust drug dose/frequency. Subjective The patient is a 87 year old female admitted on Feb 09, 2018 at 15:58 with AMS, possible stroke,hypotension, possible sepsis. She is ordered empiric vancomycin and Zosyn -- will be reevaluated in 24 hrs. Objective Height (Feet): 5 Height (Inches): 2.00 Weight (Kilograms): 67.700 Lab Results (24hrs): Test 02/09/18 11:25 02/09/18 12:04 02/09/18 13:19 02/09/18 15:10 White Blood Count 4.44 K/uL (4.8-10.8) Red Blood Count 4.08 M/uL (4.2-5.4) Hemoglobin 12.4 g/dL (12.0-16.0) Hematocrit 39.7 % (37-47) Mean Corpuscular Volume 97.3 fL (80-100) Mean Corpuscular Hemoglobin 30.4 pg (25-34) Mean Corpuscular Hemoglobin Concent 31.2 g/dl (32-36) Platelet Count 182 K/uL (130-400) Mean Platelet Volume 9.5 fL (7.4-10.4) Neutrophils (%) (Auto) 84.3 % Lymphocytes (%) (Auto) 14.2 % Monocytes (%) (Auto) 0.2 % Eosinophils (%) (Auto) 0.9 % Basophils (%) (Auto) 0.2 % Neutrophils # (Auto) 3.74 K/uL (1.4-6.5) Lymphocytes # (Auto) 0.63 K/uL (1.2-3.4) Monocytes # (Auto) 0.01 K/uL (0.11-0.59) Eosinophils # (Auto) 0.04 K/uL (0-0.5) Basophils # (Auto) 0.01 K/uL (0-0.2) RDW Standard Deviation 48.1 fL (36.4-46.3) RDW Coefficient of Variation 13.5 % (11.5-14.5) Immature Granulocyte % (Auto) 0.2 % Immature Granulocyte # (Auto) 0.01 K/uL (0.00-0.02) Prothrombin Time 10.6 SECONDS (9.0-12.0) Prothromb Time International Ratio 1.0 (0.9-1.1) Activated Partial Thromboplast Time 20.5 SECONDS (21.0-31.0) Partial Thromboplastin Ratio 0.8 Sodium Level 140 mmol/L (136-145) Potassium Level 4.3 mmol/L (3.5-5.1) Chloride Level 107 mmol/L (98-107) Carbon Dioxide Level 28 mmol/L (21-32) Anion Gap 5.0 mmol/L (3-11) Blood Urea Nitrogen 22 mg/dl (7-18) Creatinine 0.93 mg/dl (0.60-1.20) Est Creatinine Clear Calc Drug Dose 43.7 ml/min Estimated GFR () 65.0 Estimated GFR (Non- 56.0 BUN/Creatinine Ratio 24.1 (10-20) Random Glucose 111 mg/dl (70-99) Calcium Level 8.8 mg/dl (8.5-10.1) Magnesium Level 1.9 mg/dl (1.8-2.4) Total Bilirubin 1.4 mg/dl (0.2-1) Direct Bilirubin 1.0 mg/dl (0-0.2) Aspartate Amino Transf (AST/SGOT) 664 U/L (15-37) Alanine Aminotransferase (ALT/SGPT) 369 U/L (12-78) Alkaline Phosphatase 259 U/L (45-117) Total Creatine Kinase 83 U/L (26-192) Creatine Kinase MB 1.8 ng/ml (0.5-3.6) Creatine Kinase MB Ratio 2.2 (0-3.0) Troponin I < 0.015 ng/ml (0-0.045) Total Protein 6.7 gm/dl (6.4-8.2) Albumin 3.2 gm/dl (3.4-5.0) Lipase 110 U/L (73-393) Lactic Acid Level 3.6 mmol/L (0.4-2.0) Ammonia < 10.0 umol/L (11-32) Ethyl Alcohol mg/dL < 3.0 mg/dl (0-3) Urine Color YELLOW Urine Appearance SL CLOUDY (CLEAR) Urine pH 5.5 (4.5-7.5) Urine Specific [place] <= 1.005 (1.000-1.030) Urine Protein NEG (NEG) Urine Glucose (UA) NEG (NEG) Urine Ketones NEG (NEG) Urine Occult Blood TRACE (NEG) Urine Nitrite NEG (NEG) Urine Bilirubin NEG (NEG) Urine Urobilinogen POS (NEG) Urine Leukocyte Esterase NEG (NEG) Urine RBC 0-4 /hpf (0-4) Urine WBC 1-5 /hpf (0-5) Urine Epithelial Cells >30 /lpf (0-5) Urine Calcium Oxalate Crystals PRESENT (NONE PRSENT) Urine Bacteria 1+ (NEG) Urine Opiates Screen NEG (NEG) Urine Methadone, Qualitative NEG (NEG) Urine Barbiturates NEG (NEG) Urine Phencyclidine (PCP) Level NEG (NEG) Ur Amphetamine/Methamphetamine NEG (NEG) MDMA (Ecstasy) Screen NEG (NEG) Urine Benzodiazepines Screen NEG (NEG) Urine Cocaine Metabolite NEG (NEG) Urine Marijuana (THC) NEG (NEG) Test 02/09/18 16:20 02/09/18 19:10 02/09/18 19:58 Lactic Acid Level 1.8 mmol/L (0.4-2.0) Phosphorus Level 3.1 mg/dl (2.5-4.9) Magnesium Level 1.9 mg/dl (1.8-2.4) Acetaminophen Level < 2 ug/ml (10-30) Bedside Glucose 132 mg/dl (70-90) Micro Results: Blood cx x 2 are ordered Assessment & Plan Vancomycin: Loading dose: 2000 mg IV X 1 dose (~25mg/kg) then: 1000 mg IV every 24 hours. Goal trough level estimate: between 15 - 20 mcg/mL. Peak and trough or random level will be ordered if vancomycin is continued. Zosyn 4.5gm IV q8h extended infusion is ordered for CrCl > 20ml/min. in a critically ill pt. Pharmacy will continue to follow and will adjust dose/frequency as necessary. Thank you
[2018-02-09] MEDS ORDERED: NURSING VERBAL MED ORDER ONE (21:30)
[2018-02-10] VITALS (23 sets, daily range): BP systolic 110–195; BP diastolic 59–96; PULSE 69–83; TEMP 36.6–36.8; O2SAT 93–100
[2018-02-10] MEDS ORDERED: PIPERACILL/TAZOBAC IV 4.5 GM in DEXTROSE 5% 100ML 100 ML IV SCH ×2
[2018-02-10 05:52] LABS: BASO % 0.1 %; BASO ABS # 0.01 K/uL (0-0.2); HEMATOCRIT 33.8 % (37-47); HEMOGLOBIN 10.4 g/dL (12.0-16.0); IG# 0.03 K/uL (0.00-0.02); LYMPH % 6.6 %; LYMPH ABS # 0.83 K/uL (1.2-3.4); MEAN CELL VOLUME 95.8 fL (80-100); MEAN CORPUSCULAR HEMOGLOBIN 29.5 pg (25-34); MEAN CORPUSCULAR HGB CONC 30.8 g/dl (32-36); MEAN PLATELET VOLUME 9.5 fL (7.4-10.4); MONO % 7.2 %; MONO ABS # 0.91 K/uL (0.11-0.59); NEUT % 85.9 %; NEUT ABS # 10.86 K/uL (1.4-6.5); PLATELET COUNT 145 K/uL (130-400); RED CELL DISTRIBUTION WIDTH CV 13.8 % (11.5-14.5); RED CELL DISTRIBUTION WIDTH SD 47.9 fL (36.4-46.3); WHITE BLOOD COUNT 12.64 K/uL (4.8-10.8)
[2018-02-10 06:45] LABS: ALBUMIN 2.5 gm/dl (3.4-5.0); CALCIUM 7.4 mg/dl (8.5-10.1); CREATININE 0.88 mg/dl (0.60-1.20); PHOSPHORUS 3.5 mg/dl (2.5-4.9); POTASSIUM 4.3 mmol/L (3.5-5.1); TOTAL PROTEIN 5.7 gm/dl (6.4-8.2)
[2018-02-10] MEDS: DOCUSATE SODIUM 100 MG CAP PO SCH ×2 (07:45→20:51)
[2018-02-10] MEDS: GABAPENTIN 100 MG CAP PO SCH ×3 (07:45→20:52)
[2018-02-10] MEDS: CHOLECALCIFEROL 1000 INTER.UNIT TAB PO SCH (07:45)
[2018-02-10] MEDS: BISACODYL 10 MG SUPP PR SCH (07:45)
[2018-02-10] MEDS ORDERED: ASPIRIN 81 MG ECTAB PO SCH (09:00)
[2018-02-10] MEDS: SODIUM CHLORIDE 0.9% 1000ML 1,000 ML IV SCH (09:08)
--- NOTE | 2018-02-10 10:22 | Neurology Consultation ---
Neurology Consultation Date of Consultation: Feb 10, 2018. Attending Physician: Jass Martinez MD Primary Care Physician: Alexei Redman M.D. Reason for Consultation: Change in mental status History of Present Illness The patient is an 87-year-old female who presented to the emergency department yesterday morning for further assessment of generalized weakness, difficulty ambulating, nausea, emesis, headache, and slurred speech. She became acutely hypotensive and unresponsive yesterday prompting concerns for an acute neurological issue, possibly brainstem stroke. She has had 2 head CTs, both of which are unremarkable. There is evidence of a chronic Small left occipital infarct. CT angiography of the head and neck are also unremarkable. There is moderate bilateral carotid plaque. Normal vertebral flow. Electrocardiogram is revealed a normal sinus rhythm, 91 beats per minute. Medical issues for this patient include sepsis, hypotension and an unexplained transaminitis. Past medical history notable for atrial fibrillation, myocardial infarction, abdominal aortic aneurysm, hypertension, hyperlipidemia, history of heavy alcohol use. She takes an oral anticoagulant and daily aspirin. Patient has a history of cardiac pacer for supraventricular tachycardia. She takes a low dose of Neurontin for chronic pain. Currently, the patient's mentation appears to be intact. She complains of chronic right hip and groin pain which she attributes to a previous fall. She complains of chronic right shoulder pain as well as carpal tunnel syndrome for the right hand. She currently denies headache, vertigo, vision loss, hearing loss, change in speech, or other acute neurological symptoms. She denies a history of tremor. Past Medical/Surgical History Medical Problems: (1) Bilateral leg pain Status: Acute (2) Change in mental status Status: Acute (3) Confusion Status: Acute (4) CVA (cerebral vascular accident) Status: Acute (5) Dizziness Status: Acute (6) Elevated liver enzymes Status: Acute (7) Headache Status: Acute (8) Hypertension Status: Acute (9) Nausea Status: Acute (10) Near syncope Status: Acute (11) Pneumonia Status: Acute (12) Right sided abdominal pain Status: Acute (13) Weakness Status: Acute (14) Weakness generalized Status: Acute Family History Family history notable for Parkinson's disease Social History Smoking Status: Former smoker Smokeless Tobacco Use: No Alcohol Use: remote history of etoh use Drug Use: none Marital Status: single Housing Status: lives with family Occupation Status: retired Allergies Coded Allergies: Adenosine (Verified Allergy, Unknown, "pt not sure had it in er years ago ", 01/06/18) Current Inpatient Medications Current Inpatient Medications Medications (Trade) Dose Ordered Sig/Yifan Route Start Time Stop Time Status Last Admin Dose Admin Ioversol (Optiray 320) 100 ml UD PRN IV 02/09/18 12:15 02/13/18 12:14 Sodium Chloride 1,000 ml @ 125 mls/hr Q8H IV 02/09/18 18:00 03/11/18 17:59 02/10/18 09:08 125 MLS/HR Ondansetron HCl (Zofran Inj) 4 mg Q6H PRN IV 02/09/18 15:45 03/11/18 15:44 Polyethylene (Miralax Powder Packet) 17 gm DAILY PRN PO 02/09/18 15:45 03/11/18 15:44 Cholecalciferol (Vitamin D Tab) 2,000 inter.unit QAM PO 02/10/18 09:00 03/12/18 08:59 02/10/18 07:45 2,000 INTER.UNIT Docusate Sodium (coLACE CAP) 200 mg BID PO 02/09/18 21:00 03/11/18 20:59 02/10/18 07:45 200 MG Gabapentin (Neurontin Cap) 200 mg TID PO 02/09/18 21:00 03/11/18 20:59 02/10/18 07:45 200 MG Polyethylene (Miralax Powder Packet) 17 gm DAILY PO 02/10/18 09:00 03/12/18 08:59 Ibuprofen (Advil Tab) 200 mg Q6H PRN PO 02/10/18 04:15 03/12/18 04:14 Review of Systems Constitutional: No fever or chills Eyes: Patient reports a history of early macular degeneration. She denies blindness or double vision ENT: No vertigo or hearing loss Cardiovascular: No chest pain or palpitations Respiratory: No coughing wheezing or shortness of breath Gastrointestinal: No abdominal pain Neurological: As per history of present illness Musculoskeletal: Patient reports a history of chronic low back pain with multiple surgeries and chronic lower extremity cramps A full 10 point review of systems was obtained from this patient with pertinent positives and negatives described in the history of present illness an otherwise listed above. All remaining systems reviewed and are negative. Physical Exam Vital Signs (Past 24 Hrs): Date Time Temp Pulse Resp B/P (MAP) Pulse Ox O2 Delivery O2 Flow Rate FiO2 02/10/18 09:09 130/62 (84) 110/72 (85) 02/10/18 09:01 71 14 159/72 (101) 95 02/10/18 08:45 74 14 96 02/10/18 08:05 97 Room Air 1.0 02/10/18 08:01 36.7 73 16 158/81 (106) 94 02/10/18 06:01 71 18 167/76 (106) 95 Room Air 02/10/18 05:01 71 18 145/59 (87) 94 Room Air 02/10/18 04:01 72 21 152/69 (96) 96 Oxymask 1.0 02/10/18 04:00 93 Room Air 02/10/18 03:58 36.6 136/72 (93) Room Air 02/10/18 03:57 73 15 142/68 (92) 100 Oxymask 1.0 02/10/18 03:01 81 23 161/83 (109) 100 Oxymask 1.0 02/10/18 02:01 76 20 170/83 (112) 100 Oxymask 1.0 02/10/18 01:30 36.7 78 21 152/80 (104) 100 Oxymask 1.0 02/10/18 01:01 79 22 171/96 (121) 100 Oxymask 1.0 02/10/18 00:30 80 20 148/82 (104) 100 Oxymask 1.0 02/10/18 00:01 83 18 195/80 (118) 100 Oxymask 1.0 02/10/18 00:01 100 Oxymask 1.0 02/09/18 23:59 152/94 (113) 02/09/18 23:54 88 26 198/97 (130) 100 Oxymask 1.0 02/09/18 23:42 89 18 192/101 (131) 100 Oxymask 1.0 02/09/18 23:37 85 18 210/95 (133) 100 Oxymask 1.0 02/09/18 23:36 80 23 193/102 (132) 100 Oxymask 1.0 02/09/18 23:34 83 19 195/96 (129) 100 Oxymask 1.0 02/09/18 23:31 83 22 190/88 (122) 100 Oxymask 1.0 02/09/18 23:16 82 17 145/61 (89) 95 Oxymask 1.0 02/09/18 23:09 81 19 142/81 (101) 93 Oxymask 1.0 02/09/18 23:01 83 18 156/137 (143) 94 Oxymask 1.0 02/09/18 22:46 84 19 147/74 (98) 92 Oxymask 1.0 02/09/18 22:31 82 19 140/77 (98) 94 Oxymask 1.0 02/09/18 22:15 90 20 142/89 (106) 100 Oxymask 1.0 02/09/18 22:01 82 22 128/69 (88) 94 Oxymask 1.0 02/09/18 21:46 85 19 119/61 (80) 99 Oxymask 1.0 02/09/18 21:39 86 21 132/64 (86) 99 Oxymask 1.0 02/09/18 21:31 88 21 165/95 (118) 98 Oxymask 1.0 02/09/18 21:28 85 24 170/81 (110) 97 Oxymask 1.0 02/09/18 21:16 112 26 155/81 (105) 100 Oxymask 1.0 02/09/18 21:00 98 19 110/85 (93) 97 Oxymask 1.0 02/09/18 20:55 110 27 80/57 (65) 98 Oxymask 1.0 02/09/18 20:46 116 20 79/53 (62) 97 Oxymask 1.0 02/09/18 20:31 108 22 122/95 (104) 97 Oxymask 1.0 02/09/18 20:16 116 20 105/65 (78) 98 Oxymask 1.0 02/09/18 20:02 36.5 109 27 96/77 (83) 91 Oxymask 1.0 02/09/18 19:58 120 24 129/71 (90) 99 Oxymask 1.0 02/09/18 19:56 126 23 167/143 (151) 100 Oxymask 1.0 02/09/18 19:53 110 24 90/71 (77) 96 Oxymask 1.0 18 19:45 36.5 112 14 90/71 100 Mask 4.0 02/09/18 19:31 122 21 144/82 (102) 100 Oxymask 1.0 18 19:26 136 23 143/84 (103) 98 Oxymask 1.0 02/09/18 19:25 125 21 147/67 100 02/09/18 19:22 132 20 107/91 (96) 100 Oxymask 1.0 02/09/18 19:16 133 21 121/71 (88) 97 Oxymask 1.0 02/09/18 19:11 122 16 114/82 (93) 96 Oxymask 1.0 02/09/18 19:06 110 22 124/54 (77) 97 Oxymask 1.0 02/09/18 19:01 115 20 109/74 (86) 96 Oxymask 1.0 02/09/18 18:11 147/67 02/09/18 18:10 125 21 100 02/09/18 18:06 95/68 02/09/18 18:05 132 27 69 02/09/18 18:01 146/111 02/09/18 18:00 134 13 87 02/09/18 17:56 119/78 18 17:55 120 14 02/09/18 17:51 131/73 18 17:50 128 19 02/09/18 17:46 114/65 02/09/18 17:45 132 23 02/09/18 17:41 162/131 18 17:40 119 23 96 18 17:36 154/79 18 17:35 147 27 73 18 17:31 156/111 18 17:30 144 23 100 18 17:26 151/104 18 17:25 131 30 18 17:21 145/90 18 17:20 144 17 1518 17:15 131 21 18 17:11 141/64 18 17:10 141 22 02/09/18 17:06 124/85 3/15/18 17:05 135 25 100 18 17:02 100/61 18 17:00 131 21 85 18 16:59 129/73 18 16:56 150/71 18 16:55 99 36 100 18 16:54 68/39 18 16:50 13 02/09/18 16:25 87 92 02/09/18 16:22 74/42 02/09/18 16:20 78 27 94 18 16:19 70/40 02/09/18 16:17 76/42 02/09/18 16:16 75/40 02/09/18 16:15 86 18 94 02/09/18 16:10 93 20 89 02/09/18 16:05 78 20 94 02/09/18 16:04 115/51 02/09/18 16:03 91/45 02/09/18 16:01 76/43 02/09/18 16:00 84 25 97 02/09/18 15:55 93 25 91 02/09/18 15:51 87/46 02/09/18 15:50 94 17 94 02/09/18 15:46 87/45 02/09/18 15:45 68 23 87/45 95 Room Air 02/09/18 15:45 96 21 93 02/09/18 15:40 91 26 94 02/09/18 15:35 92 26 90 18 15:31 90/54 02/09/18 15:30 94 24 90 02/09/18 15:25 93 28 92 18 15:20 92 29 92 1518 15:16 79/39 18 15:15 93 31 88 02/09/18 15:10 96 23 94 15 15:06 94 22 109/59 92 Room Air 02/09/18 15:05 90 24 92 1518 15:01 109/59 18 15:00 91 23 91 02/09/18 14:55 94 20 92 15 14:50 91 22 90 1518 14:46 119/59 1518 14:45 95 24 91 02/09/18 14:40 94 25 94 02/09/18 14:35 94 24 95 02/09/18 14:32 95 12 100/56 95 Room Air 02/09/18 14:31 100/56 02/09/18 14:30 94 24 94 02/09/18 14:29 120/61 02/09/18 13:25 76 26 96 02/09/18 13:20 76 22 98 02/09/18 13:17 122/57 02/09/18 13:15 80 17 99 02/09/18 13:10 80 20 100 02/09/18 13:05 79 18 84 02/09/18 13:01 120/57 02/09/18 13:00 80 15 100 02/09/18 12:55 81 26 98 02/09/18 12:50 79 18 98 02/09/18 12:46 109/38 02/09/18 12:45 81 18 99 02/09/18 12:40 84 19 99 02/09/18 12:35 83 20 98 02/09/18 12:31 111/51 02/09/18 12:30 83 26 97 02/09/18 12:25 83 21 97 02/09/18 12:20 84 20 99 02/09/18 12:16 130/51 02/09/18 12:15 83 16 130/51 91 Room Air 02/09/18 12:15 82 24 98 02/09/18 12:15 96 Nasal Cannula 2.0 02/09/18 12:10 83 20 95 02/09/18 12:05 85 20 91 02/09/18 12:01 128/61 02/09/18 12:00 86 16 91 02/09/18 11:55 88 20 91 02/09/18 11:50 90 18 91 02/09/18 11:46 152/67 02/09/18 11:45 90 Room Air 02/09/18 11:45 90 23 94 02/09/18 11:44 137/74 02/09/18 11:26 107 02/09/18 11:25 112 24 02/09/18 11:19 166/94 02/09/18 11:15 36.8 89 12 146/94 93 Room Air The patient is a well-developed, well-nourished elderly female. She is lying comfortably in bed. She is alert and oriented to person and place although not to date. Recent and remote memory intact. Attention and concentration normal. Patient exhibits a normal spontaneous speech pattern and age-appropriate fund of knowledge. Visual cerna full to confrontation. Visual acuity normal. Pupils equal round reactive to light and accommodation. Eye movements normal. Facial sensation intact. There is no facial weakness or droop. Hearing intact to finger rub bilaterally. Palate elevates to midline. Shoulder shrug strength intact bilaterally. Tongue protrudes to midline. Sensation intact to light touch, temperature, vibration, and proprioception for all 4 limbs. Deep tendon reflexes are intact and symmetrical. Plantar responses downgoing bilaterally. There is no dysdiadochokinesia or dysmetria with finger to nose bilaterally or heel to van on the left. Patient exhibits minimal movement of the right lower extremity which is chronic and related to pain. Attempts at moving the right lower limb result in hip and groin pain which is a chronic issue for this patient. Ophthalmoscopic examination reveals normal-appearing optic discs and posterior segments. No papilledema or hemorrhages. Carotid pulses normal bilaterally, no bruits to auscultation. Gait and station could not be tested due to safety concerns. Muscle strength normal for both upper limbs and the left lower extremity. Unable to fully assess right lower extremity due to chronic pain. Patient wiggles the toes and dorsiflexes and plantar flexes the feet and ankles symmetrically. Muscle tone normal throughout. There is no footdrop. There is no atrophy. No abnormal movements appreciated. Laboratory Results Past 24 Hours: 02/10/18 05:33 Red Blood Count 3.53, Mean Corpuscular Volume 95.8, Mean Corpuscular Hemoglobin 29.5, Mean Corpuscular Hemoglobin Concent 30.8, Mean Platelet Volume 9.5, Neutrophils (%) (Auto) 85.9, Lymphocytes (%) (Auto) 6.6, Monocytes (%) (Auto) 7.2, Eosinophils (%) (Auto) 0.0, Basophils (%) (Auto) 0.1, Neutrophils # (Auto) 10.86, Lymphocytes # (Auto) 0.83, Monocytes # (Auto) 0.91, Eosinophils # (Auto) 0.00, Basophils # (Auto) 0.01 02/10/18 05:33 Test 02/09/18 11:25 02/09/18 13:19 02/09/18 15:10 02/09/18 16:20 Prothrombin Time 10.6 SECONDS (9.0-12.0) Prothromb Time International Ratio 1.0 (0.9-1.1) Activated Partial Thromboplast Time 20.5 SECONDS (21.0-31.0) Partial Thromboplastin Ratio 0.8 Total Creatine Kinase 83 U/L (26-192) Creatine Kinase MB 1.8 ng/ml (0.5-3.6) Creatine Kinase MB Ratio 2.2 (0-3.0) Troponin I < 0.015 ng/ml (0-0.045) Lipase 110 U/L (73-393) Ammonia < 10.0 umol/L (11-32) Ethyl Alcohol mg/dL < 3.0 mg/dl (0-3) Urine Color YELLOW Urine Appearance SL CLOUDY (CLEAR) Urine pH 5.5 (4.5-7.5) Urine Specific [place] <= 1.005 (1.000-1.030) Urine Protein NEG (NEG) Urine Glucose (UA) NEG (NEG) Urine Ketones NEG (NEG) Urine Occult Blood TRACE (NEG) Urine Nitrite NEG (NEG) Urine Bilirubin NEG (NEG) Urine Urobilinogen POS (NEG) Urine Leukocyte Esterase NEG (NEG) Urine RBC 0-4 /hpf (0-4) Urine WBC 1-5 /hpf (0-5) Urine Epithelial Cells >30 /lpf (0-5) Urine Calcium Oxalate Crystals PRESENT (NONE PRSENT) Urine Bacteria 1+ (NEG) Urine Opiates Screen NEG (NEG) Urine Methadone, Qualitative NEG (NEG) Urine Barbiturates NEG (NEG) Urine Phencyclidine (PCP) Level NEG (NEG) Ur Amphetamine/Methamphetamine NEG (NEG) MDMA (Ecstasy) Screen NEG (NEG) Urine Benzodiazepines Screen NEG (NEG) Urine Cocaine Metabolite NEG (NEG) Urine Marijuana (THC) NEG (NEG) Lactic Acid Level 1.8 mmol/L (0.4-2.0) Test 02/09/18 19:10 02/10/18 00:27 02/10/18 05:33 Acetaminophen Level < 2 ug/ml (10-30) Bedside Glucose 105 mg/dl (70-90) White Blood Count 12.64 K/uL (4.8-10.8) Red Blood Count 3.53 M/uL (4.2-5.4) Hemoglobin 10.4 g/dL (12.0-16.0) Hematocrit 33.8 % (37-47) Mean Corpuscular Volume 95.8 fL (80-100) Mean Corpuscular Hemoglobin 29.5 pg (25-34) Mean Corpuscular Hemoglobin Concent 30.8 g/dl (32-36) Platelet Count 145 K/uL (130-400) Mean Platelet Volume 9.5 fL (7.4-10.4) Neutrophils (%) (Auto) 85.9 % Lymphocytes (%) (Auto) 6.6 % Monocytes (%) (Auto) 7.2 % Eosinophils (%) (Auto) 0.0 % Basophils (%) (Auto) 0.1 % Neutrophils # (Auto) 10.86 K/uL (1.4-6.5) Lymphocytes # (Auto) 0.83 K/uL (1.2-3.4) Monocytes # (Auto) 0.91 K/uL (0.11-0.59) Eosinophils # (Auto) 0.00 K/uL (0-0.5) Basophils # (Auto) 0.01 K/uL (0-0.2) RDW Standard Deviation 47.9 fL (36.4-46.3) RDW Coefficient of Variation 13.8 % (11.5-14.5) Immature Granulocyte % (Auto) 0.2 % Immature Granulocyte # (Auto) 0.03 K/uL (0.00-0.02) Anion Gap 8.0 mmol/L (3-11) Est Creatinine Clear Calc Drug Dose 42.2 ml/min Estimated GFR () 69.4 Estimated GFR (Non- 59.9 BUN/Creatinine Ratio 22.1 (10-20) Calcium Level 7.4 mg/dl (8.5-10.1) Phosphorus Level 3.5 mg/dl (2.5-4.9) Magnesium Level 1.8 mg/dl (1.8-2.4) Total Bilirubin 1.2 mg/dl (0.2-1) Direct Bilirubin 1.1 mg/dl (0-0.2) Aspartate Amino Transf (AST/SGOT) 425 U/L (15-37) Alanine Aminotransferase (ALT/SGPT) 358 U/L (12-78) Alkaline Phosphatase 203 U/L (45-117) Total Protein 5.7 gm/dl (6.4-8.2) Albumin 2.5 gm/dl (3.4-5.0) Procalcitonin 36.22 ng/ml (0-0.5) Random Cortisol 44.27 mcg/dl Chemistry Specimen Hemolysis Date/Time Source Procedure Growth Status 02/10/18 01:00 Nasal MRSA DNA Surveillance Screen - Final Specimen Negative for MRSA by DNA Probe Complete Impression Resolved encephalopathy. Chronic small left occipital infarct on CT of the head without evidence of gross visual field deficit to confrontation testing. Bilateral moderate carotid stenosis on CT angiography, not hemodynamically significant. Normal vertebral flow. No significant intracranial stenosis or vascular lesion. Transaminitis of undetermined etiology. History of heavy alcohol use but reportedly none recently. Yesterday's acute change in neurological status may been related to a vasovagal episode Plan Follow-up with results of this morning's EEG. No further immediate neurologic recommendations.
--- NOTE | 2018-02-10 11:18 | Critical Care Progress Note ---
Critical Care Progress Note Date of Service Feb 10, 2018. ICU Day ICU Day Number: 2 Attending Subjective She is now mentating at baseline. No new target pain. No GI issues. No cardiopulmonary complaints. I spoke with POA for healthcare. Objective Gen--awake and alert HEENT--no focal changes. Respiratory--exchange is good Cardio--rate and volume ok. Perfusion adequate GI--obr Musculo--stable Skin--no target Assessment & Plan Altered mental status--question of etiology (meds and ? brainstem) 1. Cardio--rate and volume ok. No new Rx 2. Pulmonary--toilet 3. GI--OBR 4. Neuro--restart Xa probably ok Avoiding constipation and vagal episodes with liberalization of B/P would be my recommendation Data Medications: Current Inpatient Medications Medications (Trade) Dose Ordered Sig/Yifan Route Start Time Stop Time Status Last Admin Dose Admin Ioversol (Optiray 320) 100 ml UD PRN IV 02/09/18 12:15 02/13/18 12:14 Sodium Chloride 1,000 ml @ 125 mls/hr Q8H IV 02/09/18 18:00 03/11/18 17:59 02/10/18 09:08 125 MLS/HR Ondansetron HCl (Zofran Inj) 4 mg Q6H PRN IV 02/09/18 15:45 03/11/18 15:44 Polyethylene (Miralax Powder Packet) 17 gm DAILY PRN PO 02/09/18 15:45 03/11/18 15:44 Cholecalciferol (Vitamin D Tab) 2,000 inter.unit QAM PO 02/10/18 09:00 03/12/18 08:59 02/10/18 07:45 2,000 INTER.UNIT Docusate Sodium (coLACE CAP) 200 mg BID PO 02/09/18 21:00 03/11/18 20:59 02/10/18 07:45 200 MG Gabapentin (Neurontin Cap) 200 mg TID PO 02/09/18 21:00 03/11/18 20:59 02/10/18 07:45 200 MG Polyethylene (Miralax Powder Packet) 17 gm DAILY PO 02/10/18 09:00 03/12/18 08:59 Ibuprofen (Advil Tab) 200 mg Q6H PRN PO 02/10/18 04:15 03/12/18 04:14 Apixaban (Eliquis Tab) 2.5 mg BID PO 02/10/18 21:00 03/12/18 20:59 Vital Signs: Date Time Temp Pulse Resp B/P (MAP) Pulse Ox O2 Delivery O2 Flow Rate FiO2 02/10/18 09:09 130/62 (84) 110/72 (85) 02/10/18 09:01 71 14 159/72 (101) 95 02/10/18 08:45 74 14 96 02/10/18 08:05 97 Room Air 1.0 02/10/18 08:01 36.7 73 16 158/81 (106) 94 02/10/18 06:01 71 18 167/76 (106) 95 Room Air 02/10/18 05:01 71 18 145/59 (87) 94 Room Air 02/10/18 04:01 72 21 152/69 (96) 96 Oxymask 1.0 02/10/18 04:00 93 Room Air 02/10/18 03:58 36.6 136/72 (93) Room Air 02/10/18 03:57 73 15 142/68 (92) 100 Oxymask 1.0 02/10/18 03:01 81 23 161/83 (109) 100 Oxymask 1.0 02/10/18 02:01 76 20 170/83 (112) 100 Oxymask 1.0 02/10/18 01:30 36.7 78 21 152/80 (104) 100 Oxymask 1.0 02/10/18 01:01 79 22 171/96 (121) 100 Oxymask 1.0 02/10/18 00:30 80 20 148/82 (104) 100 Oxymask 1.0 02/10/18 00:01 83 18 195/80 (118) 100 Oxymask 1.0 02/10/18 00:01 100 Oxymask 1.0 02/09/18 23:59 152/94 (113) 02/09/18 23:54 88 26 198/97 (130) 100 Oxymask 1.0 02/09/18 23:42 89 18 192/101 (131) 100 Oxymask 1.0 02/09/18 23:37 85 18 210/95 (133) 100 Oxymask 1.0 02/09/18 23:36 80 23 193/102 (132) 100 Oxymask 1.0 02/09/18 23:34 83 19 195/96 (129) 100 Oxymask 1.0 02/09/18 23:31 83 22 190/88 (122) 100 Oxymask 1.0 02/09/18 23:16 82 17 145/61 (89) 95 Oxymask 1.0 02/09/18 23:09 81 19 142/81 (101) 93 Oxymask 1.0 02/09/18 23:01 83 18 156/137 (143) 94 Oxymask 1.0 02/09/18 22:46 84 19 147/74 (98) 92 Oxymask 1.0 02/09/18 22:31 82 19 140/77 (98) 94 Oxymask 1.0 02/09/18 22:15 90 20 142/89 (106) 100 Oxymask 1.0 02/09/18 22:01 82 22 128/69 (88) 94 Oxymask 1.0 02/09/18 21:46 85 19 119/61 (80) 99 Oxymask 1.0 02/09/18 21:39 86 21 132/64 (86) 99 Oxymask 1.0 02/09/18 21:31 88 21 165/95 (118) 98 Oxymask 1.0 02/09/18 21:28 85 24 170/81 (110) 97 Oxymask 1.0 02/09/18 21:16 112 26 155/81 (105) 100 Oxymask 1.0 02/09/18 21:00 98 19 110/85 (93) 97 Oxymask 1.0 02/09/18 20:55 110 27 80/57 (65) 98 Oxymask 1.0 02/09/18 20:46 116 20 79/53 (62) 97 Oxymask 1.0 02/09/18 20:31 108 22 122/95 (104) 97 Oxymask 1.0 02/09/18 20:16 116 20 105/65 (78) 98 Oxymask 1.0 02/09/18 20:02 36.5 109 27 96/77 (83) 91 Oxymask 1.0 02/09/18 19:58 120 24 129/71 (90) 99 Oxymask 1.0 18 19:56 126 23 167/143 (151) 100 Oxymask 1.0 18 19:53 110 24 90/71 (77) 96 Oxymask 1.0 18 19:45 36.5 112 14 90/71 100 Mask 4.0 02/09/18 19:31 122 21 144/82 (102) 100 Oxymask 1.0 02/09/18 19:26 136 23 143/84 (103) 98 Oxymask 1.0 18 19:25 125 21 147/67 100 02/09/18 19:22 132 20 107/91 (96) 100 Oxymask 1.0 02/09/18 19:16 133 21 121/71 (88) 97 Oxymask 1.0 18 19:11 122 16 114/82 (93) 96 Oxymask 1.0 02/09/18 19:06 110 22 124/54 (77) 97 Oxymask 1.0 02/09/18 19:01 115 20 109/74 (86) 96 Oxymask 1.0 02/09/18 18:11 147/67 02/09/18 18:10 125 21 100 02/09/18 18:06 95/68 02/09/18 18:05 132 27 69 02/09/18 18:01 146/111 02/09/18 18:00 134 13 87 02/09/18 17:56 119/78 02/09/18 17:55 120 14 02/09/18 17:51 131/73 02/09/18 17:50 128 19 18 17:46 114/65 18 17:45 132 23 18 17:41 162/131 18 17:40 119 23 96 18 17:36 154/79 18 17:35 147 27 73 18 17:31 156/111 18 17:30 144 23 100 18 17:26 151/104 18 17:25 131 30 18 17:21 145/90 18 17:20 144 17 18 17:15 131 21 3/15/18 17:11 141/64 18 17:10 141 22 18 17:06 124/85 18 17:05 135 25 100 18 17:02 100/61 18 17:00 131 21 85 18 16:59 129/73 18 16:56 150/71 18 16:55 99 36 100 02/09/18 16:54 68/39 02/09/18 16:50 13 18 16:25 87 92 02/09/18 16:22 74/42 02/09/18 16:20 78 27 94 02/09/18 16:19 70/40 02/09/18 16:17 76/42 02/09/18 16:16 75/40 02/09/18 16:15 86 18 94 02/09/18 16:10 93 20 89 02/09/18 16:05 78 20 94 02/09/18 16:04 115/51 02/09/18 16:03 91/45 02/09/18 16:01 76/43 02/09/18 16:00 84 25 97 02/09/18 15:55 93 25 91 02/09/18 15:51 87/46 02/09/18 15:50 94 17 94 02/09/18 15:46 87/45 18 15:45 68 23 87/45 95 Room Air 02/09/18 15:45 96 21 93 02/09/18 15:40 91 26 94 18 15:35 92 26 90 18 15:31 90/54 18 15:30 94 24 90 18 15:25 93 28 92 18 15:20 92 29 92 18 15:16 79/39 02/09/18 15:15 93 31 88 02/09/18 15:10 96 23 94 02/09/18 15:06 94 22 109/59 92 Room Air 02/09/18 15:05 90 24 92 1518 15:01 109/59 02/09/18 15:00 91 23 91 02/09/18 14:55 94 20 92 02/09/18 14:50 91 22 90 02/09/18 14:46 119/59 18 14:45 95 24 91 02/09/18 14:40 94 25 94 02/09/18 14:35 94 24 95 18 14:32 95 12 100/56 95 Room Air 18 14:31 100/56 02/09/18 14:30 94 24 94 18 14:29 120/61 18 13:25 76 26 96 02/09/18 13:20 76 22 98 18 13:17 122/57 18 13:15 80 17 99 02/09/18 13:10 80 20 100 02/09/18 13:05 79 18 84 02/09/18 13:01 120/57 02/09/18 13:00 80 15 100 02/09/18 12:55 81 26 98 02/09/18 12:50 79 18 98 02/09/18 12:46 109/38 02/09/18 12:45 81 18 99 02/09/18 12:40 84 19 99 02/09/18 12:35 83 20 98 02/09/18 12:31 111/51 02/09/18 12:30 83 26 97 02/09/18 12:25 83 21 97 02/09/18 12:20 84 20 99 02/09/18 12:16 130/51 18 12:15 83 16 130/51 91 Room Air 02/09/18 12:15 82 24 98 02/09/18 12:15 96 Nasal Cannula 2.0 02/09/18 12:10 83 20 95 02/09/18 12:05 85 20 91 18 12:01 128/61 02/09/18 12:00 86 16 91 02/09/18 11:55 88 20 91 02/09/18 11:50 90 18 91 02/09/18 11:46 152/67 02/09/18 11:45 90 Room Air 02/09/18 11:45 90 23 94 02/09/18 11:44 137/74 02/09/18 11:26 107 02/09/18 11:25 112 24 02/09/18 11:19 166/94 02/09/18 11:15 36.8 89 12 146/94 93 Room Air Laboratory Results: Last 24 Hours Test 02/09/18 11:25 02/09/18 11:40 02/09/18 12:04 02/09/18 13:19 White Blood Count 4.44 K/uL Red Blood Count 4.08 M/uL Hemoglobin 12.4 g/dL Hematocrit 39.7 % Mean Corpuscular Volume 97.3 fL Mean Corpuscular Hemoglobin 30.4 pg Mean Corpuscular Hemoglobin Concent 31.2 g/dl Platelet Count 182 K/uL Mean Platelet Volume 9.5 fL Neutrophils (%) (Auto) 84.3 % Lymphocytes (%) (Auto) 14.2 % Monocytes (%) (Auto) 0.2 % Eosinophils (%) (Auto) 0.9 % Basophils (%) (Auto) 0.2 % Neutrophils # (Auto) 3.74 K/uL Lymphocytes # (Auto) 0.63 K/uL Monocytes # (Auto) 0.01 K/uL Eosinophils # (Auto) 0.04 K/uL Basophils # (Auto) 0.01 K/uL RDW Standard Deviation 48.1 fL RDW Coefficient of Variation 13.5 % Immature Granulocyte % (Auto) 0.2 % Immature Granulocyte # (Auto) 0.01 K/uL Prothrombin Time 10.6 SECONDS Prothromb Time International Ratio 1.0 Activated Partial Thromboplast Time 20.5 SECONDS Partial Thromboplastin Ratio 0.8 Sodium Level 140 mmol/L Potassium Level 4.3 mmol/L Chloride Level 107 mmol/L Carbon Dioxide Level 28 mmol/L Anion Gap 5.0 mmol/L Blood Urea Nitrogen 22 mg/dl Creatinine 0.93 mg/dl Est Creatinine Clear Calc Drug Dose 43.7 ml/min Estimated GFR () 65.0 Estimated GFR (Non- 56.0 BUN/Creatinine Ratio 24.1 Random Glucose 111 mg/dl Calcium Level 8.8 mg/dl Magnesium Level 1.9 mg/dl Total Bilirubin 1.4 mg/dl Direct Bilirubin 1.0 mg/dl Aspartate Amino Transf (AST/SGOT) 664 U/L Alanine Aminotransferase (ALT/SGPT) 369 U/L Alkaline Phosphatase 259 U/L Total Creatine Kinase 83 U/L Creatine Kinase MB 1.8 ng/ml Creatine Kinase MB Ratio 2.2 Troponin I < 0.015 ng/ml Total Protein 6.7 gm/dl Albumin 3.2 gm/dl Lipase 110 U/L Bedside Glucose 94 mg/dl Lactic Acid Level 3.6 mmol/L Ammonia < 10.0 umol/L Ethyl Alcohol mg/dL < 3.0 mg/dl Test 02/09/18 15:10 02/09/18 16:20 02/09/18 19:10 02/09/18 19:58 Urine Color YELLOW Urine Appearance SL CLOUDY Urine pH 5.5 Urine Specific [place] <= 1.005 Urine Protein NEG Urine Glucose (UA) NEG Urine Ketones NEG Urine Occult Blood TRACE Urine Nitrite NEG Urine Bilirubin NEG Urine Urobilinogen POS Urine Leukocyte Esterase NEG Urine RBC 0-4 /hpf Urine WBC 1-5 /hpf Urine Epithelial Cells >30 /lpf Urine Calcium Oxalate Crystals PRESENT Urine Bacteria 1+ Urine Opiates Screen NEG Urine Methadone, Qualitative NEG Urine Barbiturates NEG Urine Phencyclidine (PCP) Level NEG Ur Amphetamine/Methamphetamine NEG MDMA (Ecstasy) Screen NEG Urine Benzodiazepines Screen NEG Urine Cocaine Metabolite NEG Urine Marijuana (THC) NEG Lactic Acid Level 1.8 mmol/L Phosphorus Level 3.1 mg/dl Magnesium Level 1.9 mg/dl Acetaminophen Level < 2 ug/ml Bedside Glucose 132 mg/dl Test 02/10/18 00:27 02/10/18 05:33 Bedside Glucose 105 mg/dl White Blood Count 12.64 K/uL Red Blood Count 3.53 M/uL Hemoglobin 10.4 g/dL Hematocrit 33.8 % Mean Corpuscular Volume 95.8 fL Mean Corpuscular Hemoglobin 29.5 pg Mean Corpuscular Hemoglobin Concent 30.8 g/dl Platelet Count 145 K/uL Mean Platelet Volume 9.5 fL Neutrophils (%) (Auto) 85.9 % Lymphocytes (%) (Auto) 6.6 % Monocytes (%) (Auto) 7.2 % Eosinophils (%) (Auto) 0.0 % Basophils (%) (Auto) 0.1 % Neutrophils # (Auto) 10.86 K/uL Lymphocytes # (Auto) 0.83 K/uL Monocytes # (Auto) 0.91 K/uL Eosinophils # (Auto) 0.00 K/uL Basophils # (Auto) 0.01 K/uL RDW Standard Deviation 47.9 fL RDW Coefficient of Variation 13.8 % Immature Granulocyte % (Auto) 0.2 % Immature Granulocyte # (Auto) 0.03 K/uL Sodium Level 144 mmol/L Potassium Level 4.3 mmol/L Chloride Level 114 mmol/L Carbon Dioxide Level 22 mmol/L Anion Gap 8.0 mmol/L Blood Urea Nitrogen 20 mg/dl Creatinine 0.88 mg/dl Est Creatinine Clear Calc Drug Dose 42.2 ml/min Estimated GFR () 69.4 Estimated GFR (Non- 59.9 BUN/Creatinine Ratio 22.1 Random Glucose 95 mg/dl Calcium Level 7.4 mg/dl Phosphorus Level 3.5 mg/dl Magnesium Level 1.8 mg/dl Total Bilirubin 1.2 mg/dl Direct Bilirubin 1.1 mg/dl Aspartate Amino Transf (AST/SGOT) 425 U/L Alanine Aminotransferase (ALT/SGPT) 358 U/L Alkaline Phosphatase 203 U/L Total Protein 5.7 gm/dl Albumin 2.5 gm/dl Procalcitonin 36.22 ng/ml Random Cortisol 44.27 mcg/dl Chemistry Specimen Hemolysis
[2018-02-10] MEDS ORDERED: PIPERACILL/TAZOBAC CONSULT ACTIVE PRN (11:45)
--- NOTE | 2018-02-10 12:19 | EEG Procedure Note ---
EEG Procedure Note Date of Service Feb 10, 2018. Start / End Times Start Time: 8:58 AM End Time: 9:18 AM Referring Physician Pa Montalvo History This is a 87-year-old female who presents with acute encephalopathy. EEG for further evaluation of possible seizure etiology. Home Medication List Scheduled Apixaban (Eliquis), 2.5 MG PO BID Aspirin (Aspirin 81), 81 MG PO QAM Atorvastatin (Lipitor), 40 MG PO HS Cholecalciferol (Vitamin D), 2,000 UNITS PO QAM Docusate Sodium (Colace), 200 MG PO BID Fentanyl (Fentanyl), 25 MCG TD Q3D Gabapentin (Neurontin), 200 MG PO TID Lisinopril (Prinivil), 10 MG PO QAM Polyethylene Glycol 3350 (Miralax), 17 GM PO DAILY Scheduled PRN Acetaminophen (Tylenol), 2 TAB PO Q6H PRN for breakthrough pain Albuterol Hfa (Ventolin Hfa), 1-2 PUFFS INH Q6H PRN for SOB/Wheezing Lisinopril (Prinivil), 10 MG PO HS PRN for Hypertension Ondasetron Odt (Zofran Odt), 4 MG SL Q6H PRN for nausea Inpatient Medication List Current Inpatient Medications Medications (Trade) Dose Ordered Sig/Yifan Route Start Time Stop Time Status Last Admin Dose Admin Ioversol (Optiray 320) 100 ml UD PRN IV 02/09/18 12:15 02/13/18 12:14 Sodium Chloride 1,000 ml @ 50 mls/hr Q20H IV 02/09/18 18:00 03/11/18 17:59 02/10/18 09:08 125 MLS/HR Ondansetron HCl (Zofran Inj) 4 mg Q6H PRN IV 02/09/18 15:45 03/11/18 15:44 Polyethylene (Miralax Powder Packet) 17 gm DAILY PRN PO 02/09/18 15:45 03/11/18 15:44 Cholecalciferol (Vitamin D Tab) 2,000 inter.unit QAM PO 02/10/18 09:00 03/12/18 08:59 02/10/18 07:45 2,000 INTER.UNIT Docusate Sodium (coLACE CAP) 200 mg BID PO 02/09/18 21:00 03/11/18 20:59 02/10/18 07:45 200 MG Gabapentin (Neurontin Cap) 200 mg TID PO 02/09/18 21:00 03/11/18 20:59 02/10/18 07:45 200 MG Polyethylene (Miralax Powder Packet) 17 gm DAILY PO 02/10/18 09:00 03/12/18 08:59 Ibuprofen (Advil Tab) 200 mg Q6H PRN PO 02/10/18 04:15 03/12/18 04:14 Apixaban (Eliquis Tab) 2.5 mg BID PO 02/10/18 21:00 03/12/18 20:59 Piperacillin Sod/ Tazobactam Sod 3.375 gm/Dextrose 115 ml @ 28.75 mls/ hr Q8 IV 02/10/18 14:00 02/20/18 13:59 UNV Miscellaneous Information (Consult) 1 ea UD PRN N/A 02/10/18 11:45 03/12/18 11:44 UNV Description This is a 21 electrode EEG with a single channel dedicated to limited EKG. The electrodes were placed in accordance with the International 10-20 system. At the start of the recording the patient was in an awake state. Background was well organized and composed of symmetric mixed alpha and beta frequencies. There was a symmetric well-formed moderate amplitude 8-9 Hz posterior dominant rhythm that was reactive to eye opening and closure. Hyperventilation was not done. Intermittent photic stimulation at various frequencies produced no abnormalities. There was no state changes or sleep transients. Interpretation This is a normal awake only routine EEG. There was no electrographic seizures or epileptiform discharges. Clinical Correlation A normal EEG does not rule out epilepsy if there is a strong clinical suspicion.
--- NOTE | 2018-02-10 12:51 | Gastrointestinal Consultation ---
Gastrointestinal Consultation Date of Consultation: Feb 10, 2018 Attending Physician: Perez Consulting Physician: Valdez Reason for Consultation: elevated LFTS, biliary dilation History of Present Illness Patient is a 87 year old female history listed below who presented with possible stroke. Lives with daughter,woke up in the middle of the night with lower extremity weakness w/ nausea/vomiting, headache and slurred speech. Called her daughter who lives with her, who called 911. GI was asked to evaluate the pt for elevated LFTs and biliary dilation on imaging. Pt was seen and evaluated, chart reviewed. Family at bedside. Pt notes she has chronic abdominal pain, nausea, vomiting. This was acutely worse last evening. Today, no nausea, vomiting but does have persistent abdominal pain L>R. Has a good appetite. No weight loss. Denies fever, chills, CP, SOB. CT ABD/Pelvis: Streak and motion compromised examination. No significant change from today's earlier examination.There is rectosigmoid fecal impaction and moderate to severe constipation. 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 These are similar to previous.Cardiomegaly and small pleural effusions. There is intra and extrahepatic biliary ductal dilatation, as well as milddilatation of the pancreatic duct. This is similar to prior studies and ofindeterminant etiology and significance. Correlation was serum bilirubin levels is recommended. There is significant cortical retention of contrast within the renal parenchyma. This is nonspecific and can be seen in the setting of acute renal injury. Clinical correlation will be required. Additional findings as above. CT Head: There is no hemorrhage, mass effect, or evidence of acute territorial ischemia by CT criteria. Past Medical/Surgical History Medical Problems: (1) Bilateral leg pain Status: Acute (2) Change in mental status Status: Acute (3) Confusion Status: Acute (4) CVA (cerebral vascular accident) Status: Acute (5) Dizziness Status: Acute (6) Elevated liver enzymes Status: Acute (7) Headache Status: Acute (8) Hypertension Status: Acute (9) Nausea Status: Acute (10) Near syncope Status: Acute (11) Pneumonia Status: Acute (12) Right sided abdominal pain Status: Acute (13) Weakness Status: Acute (14) Weakness generalized Status: Acute Past Medical History: AAA, hx CBA, CAD, CP, GERD, HH, dyslipidemia, chronic back pain, history VT, HTN Past Surgical History: EGD hysterectomy pacer placement laminectomy Family History Cancer (breast, uterine) Myocardial infarction Parkinson's disease Social History Smoking Status: Former Smoker Alcohol Use: none Drug Use: none Marital Status: single Housing Status: lives with family Occupation Status: retired Allergies Coded Allergies: Adenosine (Verified Allergy, Unknown, "pt not sure had it in er years ago ", 01/06/18) Current Medications Home Meds and Scripts Medications Dose Route/Sig Max Daily Dose Days Date Category Dose Instructions Prinivil (Lisinopril) 20 Mg Tab 10 Mg PO HS PRN 02/09/18 Reported only uses in evening "if BP is high" Colace (Docusate Sodium) 100 Mg Cap 200 Mg PO BID 30 02/09/18 Reported Zofran Odt (Ondansetron HCl) 4 Mg Tab 4 Mg SL Q6H PRN 02/09/18 Reported Tylenol (Acetaminophen) 500 Mg Tab 2 Tab PO Q6H PRN 2 02/09/18 Reported Prinivil (Lisinopril) 20 Mg Tab 10 Mg PO QAM 02/09/18 Reported Eliquis (Apixaban) 2.5 Mg Tab 2.5 Mg PO BID 02/09/18 Reported Fentanyl 25 Mcg Tdsy 25 Mcg TD Q3D 01/10/18 Rx Miralax (Polyethylene Glycol 3350) 1 Pow Pow 17 Gm PO DAILY 01/10/18 Rx Vitamin D (Cholecalciferol) 1,000 Unit Tab 2,000 Units PO QAM 05/08/17 Reported Aspirin 81 (Aspirin) 81 Mg Tab 81 Mg PO QAM 05/08/17 Reported Ventolin Hfa (Albuterol) 200 Puffs/98312 Mcg Aers 1-2 Puffs INH Q6H PRN 05/08/17 Reported Neurontin (Gabapentin) 100 Mg Cap 200 Mg PO TID 04/16/17 Reported Lipitor (Atorvastatin) 40 Mg Tab 40 Mg PO HS 04/30/16 Reported Review of Systems Constitutional: + weakness, No fever, No chills, No weight loss, No fatigue Respiratory: No cough, No sputum, No wheezing, No shortness of breath, No dyspnea on exertion, No hemoptysis Cardiac: No chest pain, No edema, No claudication, No palpitations Abdomen: + pain, + nausea, No vomiting, No diarrhea, No constipation, No GI bleeding, No dysphagia, No odynophagia, No acolic stools, No jaundice, No dark urine Skin: No rash, No itch, No color change, No bleeding Physical Exam Date Time Temp Pulse Resp B/P (MAP) Pulse Ox O2 Delivery O2 Flow Rate FiO2 02/10/18 12:02 96 Room Air 02/10/18 10:40 76 19 169/90 (116) 98 02/10/18 10:02 36.6 74 18 184/75 (111) 98 02/10/18 09:09 130/62 (84) 110/72 (85) 02/10/18 09:01 71 14 159/72 (101) 95 02/10/18 08:45 74 14 96 02/10/18 08:05 97 Room Air 02/10/18 08:01 36.7 73 16 158/81 (106) 94 02/10/18 06:01 71 18 167/76 (106) 95 Room Air 02/10/18 05:01 71 18 145/59 (87) 94 Room Air 02/10/18 04:01 72 21 152/69 (96) 96 Oxymask 1.0 02/10/18 04:00 93 Room Air 02/10/18 03:58 36.6 136/72 (93) Room Air 02/10/18 03:57 73 15 142/68 (92) 100 Oxymask 1.0 02/10/18 03:01 81 23 161/83 (109) 100 Oxymask 1.0 02/10/18 02:01 76 20 170/83 (112) 100 Oxymask 1.0 02/10/18 01:30 36.7 78 21 152/80 (104) 100 Oxymask 1.0 02/10/18 01:01 79 22 171/96 (121) 100 Oxymask 1.0 02/10/18 00:30 80 20 148/82 (104) 100 Oxymask 1.0 02/10/18 00:01 83 18 195/80 (118) 100 Oxymask 1.0 02/10/18 00:01 100 Oxymask 1.0 02/09/18 23:59 152/94 (113) 02/09/18 23:54 88 26 198/97 (130) 100 Oxymask 1.0 02/09/18 23:42 89 18 192/101 (131) 100 Oxymask 1.0 02/09/18 23:37 85 18 210/95 (133) 100 Oxymask 1.0 02/09/18 23:36 80 23 193/102 (132) 100 Oxymask 1.0 02/09/18 23:34 83 19 195/96 (129) 100 Oxymask 1.0 02/09/18 23:31 83 22 190/88 (122) 100 Oxymask 1.0 02/09/18 23:16 82 17 145/61 (89) 95 Oxymask 1.0 02/09/18 23:09 81 19 142/81 (101) 93 Oxymask 1.0 02/09/18 23:01 83 18 156/137 (143) 94 Oxymask 1.0 02/09/18 22:46 84 19 147/74 (98) 92 Oxymask 1.0 02/09/18 22:31 82 19 140/77 (98) 94 Oxymask 1.0 02/09/18 22:15 90 20 142/89 (106) 100 Oxymask 1.0 02/09/18 22:01 82 22 128/69 (88) 94 Oxymask 1.0 02/09/18 21:46 85 19 119/61 (80) 99 Oxymask 1.0 02/09/18 21:39 86 21 132/64 (86) 99 Oxymask 1.0 02/09/18 21:31 88 21 165/95 (118) 98 Oxymask 1.0 02/09/18 21:28 85 24 170/81 (110) 97 Oxymask 1.0 02/09/18 21:16 112 26 155/81 (105) 100 Oxymask 1.0 02/09/18 21:00 98 19 110/85 (93) 97 Oxymask 1.0 02/09/18 20:55 110 27 80/57 (65) 98 Oxymask 1.0 02/09/18 20:46 116 20 79/53 (62) 97 Oxymask 1.0 02/09/18 20:31 108 22 122/95 (104) 97 Oxymask 1.0 02/09/18 20:16 116 20 105/65 (78) 98 Oxymask 1.0 02/09/18 20:02 36.5 109 27 96/77 (83) 91 Oxymask 1.0 02/09/18 19:58 120 24 129/71 (90) 99 Oxymask 1.0 02/09/18 19:56 126 23 167/143 (151) 100 Oxymask 1.0 02/09/18 19:53 110 24 90/71 (77) 96 Oxymask 1.0 02/09/18 19:45 36.5 112 14 90/71 100 Mask 4.0 02/09/18 19:31 122 21 144/82 (102) 100 Oxymask 1.0 02/09/18 19:26 136 23 143/84 (103) 98 Oxymask 1.0 02/09/18 19:25 125 21 147/67 100 02/09/18 19:22 132 20 107/91 (96) 100 Oxymask 1.0 02/09/18 19:16 133 21 121/71 (88) 97 Oxymask 1.0 02/09/18 19:11 122 16 114/82 (93) 96 Oxymask 1.0 02/09/18 19:06 110 22 124/54 (77) 97 Oxymask 1.0 02/09/18 19:01 115 20 109/74 (86) 96 Oxymask 1.0 02/09/18 18:11 147/67 02/09/18 18:10 125 21 100 02/09/18 18:06 95/68 02/09/18 18:05 132 27 69 02/09/18 18:01 146/111 02/09/18 18:00 134 13 87 18 17:56 119/78 02/09/18 17:55 120 14 02/09/18 17:51 131/73 18 17:50 128 19 02/09/18 17:46 114/65 02/09/18 17:45 132 23 02/09/18 17:41 162/131 18 17:40 119 23 96 18 17:36 154/79 18 17:35 147 27 73 18 17:31 156/111 02/09/18 17:30 144 23 100 02/09/18 17:26 151/104 3/15/18 17:25 131 30 02/09/18 17:21 145/90 02/09/18 17:20 144 17 18 17:15 131 21 02/09/18 17:11 141/64 18 17:10 141 22 02/09/18 17:06 124/85 18 17:05 135 25 100 02/09/18 17:02 100/61 02/09/18 17:00 131 21 85 02/09/18 16:59 129/73 18 16:56 150/71 02/09/18 16:55 99 36 100 02/09/18 16:54 68/39 02/09/18 16:50 13 02/09/18 16:25 87 92 02/09/18 16:22 74/42 02/09/18 16:20 78 27 94 02/09/18 16:19 70/40 02/09/18 16:17 76/42 02/09/18 16:16 75/40 02/09/18 16:15 86 18 94 02/09/18 16:10 93 20 89 02/09/18 16:05 78 20 94 02/09/18 16:04 115/51 02/09/18 16:03 91/45 02/09/18 16:01 76/43 02/09/18 16:00 84 25 97 02/09/18 15:55 93 25 91 02/09/18 15:51 87/46 02/09/18 15:50 94 17 94 02/09/18 15:46 87/45 02/09/18 15:45 68 23 87/45 95 Room Air 02/09/18 15:45 96 21 93 02/09/18 15:40 91 26 94 18 15:35 92 26 90 1518 15:31 90/54 18 15:30 94 24 90 02/09/18 15:25 93 28 92 18 15:20 92 29 92 1518 15:16 79/39 18 15:15 93 31 88 02/09/18 15:10 96 23 94 02/09/18 15:06 94 22 109/59 92 Room Air 3/15/18 15:05 90 24 92 02/09/18 15:01 109/59 02/09/18 15:00 91 23 91 02/09/18 14:55 94 20 92 02/09/18 14:50 91 22 90 02/09/18 14:46 119/59 02/09/18 14:45 95 24 91 02/09/18 14:40 94 25 94 02/09/18 14:35 94 24 95 02/09/18 14:32 95 12 100/56 95 Room Air 02/09/18 14:31 100/56 02/09/18 14:30 94 24 94 02/09/18 14:29 120/61 02/09/18 13:25 76 26 96 02/09/18 13:20 76 22 98 02/09/18 13:17 122/57 02/09/18 13:15 80 17 99 02/09/18 13:10 80 20 100 02/09/18 13:05 79 18 84 02/09/18 13:01 120/57 02/09/18 13:00 80 15 100 02/09/18 12:55 81 26 98 General Appearance: no apparent distress (OOB in chair, family at bedside) Eyes: PERRL ENT: hearing grossly normal Neck: supple, no JVD, trachea midline Respiratory/Chest: lungs clear, normal breath sounds, no respiratory distress, no accessory muscle use Cardiovascular: regular rate, rhythm, no edema, no gallop, no JVD Abdomen: normal bowel sounds, soft, no organomegaly, no pulsatile mass, + tenderness (generalized) Neurologic/Psych: alert, normal mood/affect, oriented x 3 Skin: normal color, warm/dry, no rash Laboratory Results Last 24 Hours Test 02/09/18 13:19 02/09/18 15:10 02/09/18 16:20 02/09/18 19:10 Ammonia < 10.0 umol/L Ethyl Alcohol mg/dL < 3.0 mg/dl Urine Color YELLOW Urine Appearance SL CLOUDY Urine pH 5.5 Urine Specific [place] <= 1.005 Urine Protein NEG Urine Glucose (UA) NEG Urine Ketones NEG Urine Occult Blood TRACE Urine Nitrite NEG Urine Bilirubin NEG Urine Urobilinogen POS Urine Leukocyte Esterase NEG Urine RBC 0-4 /hpf Urine WBC 1-5 /hpf Urine Epithelial Cells >30 /lpf Urine Calcium Oxalate Crystals PRESENT Urine Bacteria 1+ Urine Opiates Screen NEG Urine Methadone, Qualitative NEG Urine Barbiturates NEG Urine Phencyclidine (PCP) Level NEG Ur Amphetamine/Methamphetamine NEG MDMA (Ecstasy) Screen NEG Urine Benzodiazepines Screen NEG Urine Cocaine Metabolite NEG Urine Marijuana (THC) NEG Lactic Acid Level 1.8 mmol/L Phosphorus Level 3.1 mg/dl Magnesium Level 1.9 mg/dl Acetaminophen Level < 2 ug/ml Test 02/09/18 19:58 02/10/18 00:27 02/10/18 05:33 02/10/18 11:29 Bedside Glucose 132 mg/dl 105 mg/dl 103 mg/dl White Blood Count 12.64 K/uL Red Blood Count 3.53 M/uL Hemoglobin 10.4 g/dL Hematocrit 33.8 % Mean Corpuscular Volume 95.8 fL Mean Corpuscular Hemoglobin 29.5 pg Mean Corpuscular Hemoglobin Concent 30.8 g/dl Platelet Count 145 K/uL Mean Platelet Volume 9.5 fL Neutrophils (%) (Auto) 85.9 % Lymphocytes (%) (Auto) 6.6 % Monocytes (%) (Auto) 7.2 % Eosinophils (%) (Auto) 0.0 % Basophils (%) (Auto) 0.1 % Neutrophils # (Auto) 10.86 K/uL Lymphocytes # (Auto) 0.83 K/uL Monocytes # (Auto) 0.91 K/uL Eosinophils # (Auto) 0.00 K/uL Basophils # (Auto) 0.01 K/uL RDW Standard Deviation 47.9 fL RDW Coefficient of Variation 13.8 % Immature Granulocyte % (Auto) 0.2 % Immature Granulocyte # (Auto) 0.03 K/uL Sodium Level 144 mmol/L Potassium Level 4.3 mmol/L Chloride Level 114 mmol/L Carbon Dioxide Level 22 mmol/L Anion Gap 8.0 mmol/L Blood Urea Nitrogen 20 mg/dl Creatinine 0.88 mg/dl Est Creatinine Clear Calc Drug Dose 42.2 ml/min Estimated GFR () 69.4 Estimated GFR (Non- 59.9 BUN/Creatinine Ratio 22.1 Random Glucose 95 mg/dl Calcium Level 7.4 mg/dl Phosphorus Level 3.5 mg/dl Magnesium Level 1.8 mg/dl Total Bilirubin 1.2 mg/dl Direct Bilirubin 1.1 mg/dl Aspartate Amino Transf (AST/SGOT) 425 U/L Alanine Aminotransferase (ALT/SGPT) 358 U/L Alkaline Phosphatase 203 U/L Total Protein 5.7 gm/dl Albumin 2.5 gm/dl Procalcitonin 36.22 ng/ml Random Cortisol 44.27 mcg/dl Chemistry Specimen Hemolysis Impression Patient is a 87 year old female admitted with possible stroke on [facility] with elevated LFTs with CT evidence of biliary dilation. Unfortunately, she has cardiac equipment that is not MRI compatible. There is concern that her LFTs have been trending upwards in the past but are acutely elevated. She had hypotension during admission, however, LFTs were acutely elevated before hypotension. Ischemic hepatitis vs CBD obstruction vs other Plan - Daily CBC - Agree with empiric ABX - Daily LFTs - RUQ US - If negative will need OP EUS - If positive will need to discuss with neurology - On is - Admitted with question of stroke - Will discuss with my attending. Please call with any questions, concerns. I saw and evaluated the patient this afternoon. The patient was brought in after being found unresponsive at home. I did review the patient's history and details from the other providers. On discussion with the patient and her family who is at her bedside the patient has had intermittent abdominal discomfort over the last few years. Of note she was found to have an acute elevation of her liver associated enzymes upon admission these liver enzymes appear to have improved somewhat over the last 24 hours. She did have a CT scan which showed dilation of her common bile duct but no evidence of a gallstone. Unfortunately we cannot do an MRCP due to her prior pacemaker placement. Physical examination No scleral icterus Abdomen soft, tender in the right upper quadrant and left upper quadrant Impression: Patient admitted with symptoms that were suggestive of a recent CVA. GI is consulted for evaluation of abdominal discomfort in addition to worsening liver enzyme elevation. Given her prior history I would certainly wonder about a de nate gallstone or perhaps mild ischemic hepatitis resulting from hypotension prior to admission. At this time we would normally recommend an MRI however, in lieu of her other medical problems ultrasound has been requested. If the ultrasound is negative he would suggest an endoscopic ultrasound as an outpatient in the next 6-8 weeks once cleared by neurology. If the patient is found to have a CBD stone we will need to obtain clearance from neurology and discontinue her anticoagulation for several days prior to performing the procedure (patient on Eloquis). Recommendations Right upper quadrant ultrasound ordered by the primary service Continue intravenous antibiotics for the time being pIease call with any questions or concerns
[2018-02-10 12:52] LABS: LIPASE 66 U/L (73-393)
[2018-02-10] MEDS: POLYETHYLENE (MIRALAX) 17 GM PACK PO SCH (12:55)
[2018-02-10] MEDS ORDERED: PIPERACILL/TAZOBAC IV 3.375 GM in DEXTROSE 5% 100ML IV ONE (13:15)
[2018-02-10] MEDS ORDERED: PIPERACILL/TAZOBAC IV 3.375 GM in DEXTROSE 5% 100ML 100 ML IV SCH (14:00)
[2018-02-10] MEDS ORDERED: NURSING VERBAL MED ORDER ONE (14:15)
[2018-02-10] MEDS ORDERED: VANCOMYCIN IV 1,000 MG in SODIUM CHLORIDE 0.9% 250ML 250 ML IV SCH (16:00)
[2018-02-10] MEDS: PIPERACILL/TAZOBAC IV 3.375 GM in DEXTROSE 5% 100ML IV SCH (19:12)
--- NOTE | 2018-02-10 20:04 | DIAGNOSTIC IMAGING REPORT ---
GALLBLADDER-ABD LIMITED CLINICAL HISTORY: biliary pancreatic duct dilatation; eval for obvious CBD stone pain. Edema. TECHNIQUE: Ultrasound COMPARISON STUDY: CT 02/09/2018 FINDINGS: Gallbladder surgically absent. Pancreas is unremarkable. Pancreatic duct is 3 mm. Fatty infiltration of liver. Prominence of the common bile duct 11 mm. This is similar to prior exams. Normal right kidney. IMPRESSION: 1. Fatty infiltration of liver. 2. Mild prominence of the biliary ductal system which has been described on several prior exams. 3. Cholecystectomy. The above report was generated using voice recognition software. It may contain grammatical, syntax or spelling errors. Electronically signed by: Grant Fabian M.D. 02/10/2018 8:03 PM Dictated Date/Time: 02/10/2018 8:01 PM
[2018-02-10] MEDS: APIXABAN 2.5 MG TAB PO SCH (20:51)
--- NOTE | 2018-02-10 21:05 | Progress Note ---
Subjective Date of Service: Feb 10, 2018. Subjective Pt evaluation today including: conversation w/ patient, conversation w/ family (multiple - at bedside), physical exam, chart review, lab review, review of studies (CTs, gall bladder u/s, etc), conversation w/ eyewear consultant (critical care , GI), review of inpatient medication list Pain: abdomen - epigastric & lower quadrants; worse in LLQ/RLQ PO Intake: tolerated breakfast Voiding: mata catheter in place tele overnight wnl during my visit her main complaint was that of lower abdominal pain also c/o back pain family reports failure to thrive for several weeks-months with occasional nausea and poor appetite. no obvious weight loss no abdominal pain with meals no fevers or chills chronically multiple bowel movements overnight per staff Problem List Medical Problems: (1) Bilateral leg pain Status: Acute (2) Change in mental status Status: Acute (3) Confusion Status: Acute (4) CVA (cerebral vascular accident) Status: Acute (5) Dizziness Status: Acute (6) Elevated liver enzymes Status: Acute (7) Headache Status: Acute (8) Hypertension Status: Acute (9) Nausea Status: Acute (10) Near syncope Status: Acute (11) Pneumonia Status: Acute (12) Right sided abdominal pain Status: Acute (13) Weakness Status: Acute (14) Weakness generalized Status: Acute Review of Systems Constitutional: No fever, No chills Respiratory: No cough, No shortness of breath Cardiac: No chest pain, No orthopnea Abdomen: + pain, + constipation, No nausea, No vomiting Objective Vital Signs Date Time Temp Pulse Resp B/P (MAP) Pulse Ox O2 Delivery O2 Flow Rate FiO2 02/10/18 09:09 130/62 (84) 110/72 (85) 02/10/18 09:01 71 14 159/72 (101) 95 02/10/18 08:45 74 14 96 02/10/18 08:05 97 Room Air 1.0 02/10/18 08:01 36.7 73 16 158/81 (106) 94 02/10/18 06:01 71 18 167/76 (106) 95 Room Air 02/10/18 05:01 71 18 145/59 (87) 94 Room Air 02/10/18 04:01 72 21 152/69 (96) 96 Oxymask 1.0 3/16/18 04:00 93 Room Air 02/10/18 03:58 36.6 136/72 (93) Room Air 02/10/18 03:57 73 15 142/68 (92) 100 Oxymask 1.0 02/10/18 03:01 81 23 161/83 (109) 100 Oxymask 1.0 02/10/18 02:01 76 20 170/83 (112) 100 Oxymask 1.0 02/10/18 01:30 36.7 78 21 152/80 (104) 100 Oxymask 1.0 02/10/18 01:01 79 22 171/96 (121) 100 Oxymask 1.0 02/10/18 00:30 80 20 148/82 (104) 100 Oxymask 1.0 02/10/18 00:01 83 18 195/80 (118) 100 Oxymask 1.0 02/10/18 00:01 100 Oxymask 1.0 02/09/18 23:59 152/94 (113) 02/09/18 23:54 88 26 198/97 (130) 100 Oxymask 1.0 02/09/18 23:42 89 18 192/101 (131) 100 Oxymask 1.0 02/09/18 23:37 85 18 210/95 (133) 100 Oxymask 1.0 02/09/18 23:36 80 23 193/102 (132) 100 Oxymask 1.0 02/09/18 23:34 83 19 195/96 (129) 100 Oxymask 1.0 02/09/18 23:31 83 22 190/88 (122) 100 Oxymask 1.0 02/09/18 23:16 82 17 145/61 (89) 95 Oxymask 1.0 02/09/18 23:09 81 19 142/81 (101) 93 Oxymask 1.0 02/09/18 23:01 83 18 156/137 (143) 94 Oxymask 1.0 02/09/18 22:46 84 19 147/74 (98) 92 Oxymask 1.0 02/09/18 22:31 82 19 140/77 (98) 94 Oxymask 1.0 02/09/18 22:15 90 20 142/89 (106) 100 Oxymask 1.0 02/09/18 22:01 82 22 128/69 (88) 94 Oxymask 1.0 02/09/18 21:46 85 19 119/61 (80) 99 Oxymask 1.0 02/09/18 21:39 86 21 132/64 (86) 99 Oxymask 1.0 18 21:31 88 21 165/95 (118) 98 Oxymask 1.0 02/09/18 21:28 85 24 170/81 (110) 97 Oxymask 1.0 02/09/18 21:16 112 26 155/81 (105) 100 Oxymask 1.0 02/09/18 21:00 98 19 110/85 (93) 97 Oxymask 1.0 02/09/18 20:55 110 27 80/57 (65) 98 Oxymask 1.0 02/09/18 20:46 116 20 79/53 (62) 97 Oxymask 1.0 02/09/18 20:31 108 22 122/95 (104) 97 Oxymask 1.0 02/09/18 20:16 116 20 105/65 (78) 98 Oxymask 1.0 02/09/18 20:02 36.5 109 27 96/77 (83) 91 Oxymask 1.0 02/09/18 19:58 120 24 129/71 (90) 99 Oxymask 1.0 02/09/18 19:56 126 23 167/143 (151) 100 Oxymask 1.0 02/09/18 19:53 110 24 90/71 (77) 96 Oxymask 1.0 02/09/18 19:45 36.5 112 14 90/71 100 Mask 4.0 02/09/18 19:31 122 21 144/82 (102) 100 Oxymask 1.0 02/09/18 19:26 136 23 143/84 (103) 98 Oxymask 1.0 02/09/18 19:25 125 21 147/67 100 02/09/18 19:22 132 20 107/91 (96) 100 Oxymask 1.0 18 19:16 133 21 121/71 (88) 97 Oxymask 1.0 18 19:11 122 16 114/82 (93) 96 Oxymask 1.0 02/09/18 19:06 110 22 124/54 (77) 97 Oxymask 1.0 18 19:01 115 20 109/74 (86) 96 Oxymask 1.0 18 18:11 147/67 02/09/18 18:10 125 21 100 18 18:06 95/68 18 18:05 132 27 69 18 18:01 146/111 02/09/18 18:00 134 13 87 02/09/18 17:56 119/78 02/09/18 17:55 120 14 02/09/18 17:51 131/73 02/09/18 17:50 128 19 02/09/18 17:46 114/65 02/09/18 17:45 132 23 02/09/18 17:41 162/131 02/09/18 17:40 119 23 96 02/09/18 17:36 154/79 02/09/18 17:35 147 27 73 02/09/18 17:31 156/111 02/09/18 17:30 144 23 100 02/09/18 17:26 151/104 02/09/18 17:25 131 30 02/09/18 17:21 145/90 02/09/18 17:20 144 17 02/09/18 17:15 131 21 02/09/18 17:11 141/64 02/09/18 17:10 141 22 02/09/18 17:06 124/85 02/09/18 17:05 135 25 100 02/09/18 17:02 100/61 02/09/18 17:00 131 21 85 02/09/18 16:59 129/73 02/09/18 16:56 150/71 18 16:55 99 36 100 18 16:54 68/39 18 16:50 13 02/09/18 16:25 87 92 18 16:22 74/42 02/09/18 16:20 78 27 94 18 16:19 70/40 1518 16:17 76/42 18 16:16 75/40 18 16:15 86 18 94 18 16:10 93 20 89 02/09/18 16:05 78 20 94 3/15/18 16:04 115/51 315/18 16:03 91/45 315/18 16:01 76/43 15/18 16:00 84 25 97 /15/18 15:55 93 25 91 /15/18 15:51 87/46 3/15/18 15:50 94 17 94 15/18 15:46 87/45 15/18 15:45 68 23 87/45 95 Room Air 15/18 15:45 96 21 93 15/18 15:40 91 26 94 15/18 15:35 92 26 90 15/18 15:31 90/54 15/18 15:30 94 24 90 15/18 15:25 93 28 92 15/18 15:20 92 29 92 15/18 15:16 79/39 15/18 15:15 93 31 88 15/18 15:10 96 23 94 15/18 15:06 94 22 109/59 92 Room Air 1518 15:05 90 24 92 15/18 15:01 109/59 15/18 15:00 91 23 91 15/18 14:55 94 20 92 15/18 14:50 91 22 90 15/18 14:46 119/59 15/18 14:45 95 24 91 15/18 14:40 94 25 94 15/18 14:35 94 24 95 15/18 14:32 95 12 100/56 95 Room Air 18 14:31 100/56 15/18 14:30 94 24 94 /15/18 14:29 120/61 /15/18 13:25 76 26 96 /15/18 13:20 76 22 98 /15/18 13:17 122/57 /15/18 13:15 80 17 99 /15/18 13:10 80 20 100 /15/18 13:05 79 18 84 /15/18 13:01 120/57 15/18 13:00 80 15 100 15/18 12:55 81 26 98 /15/18 12:50 79 18 98 15/18 12:46 109/38 3/15/18 12:45 81 18 99 02/09/18 12:40 84 19 99 02/09/18 12:35 83 20 98 02/09/18 12:31 111/51 02/09/18 12:30 83 26 97 02/09/18 12:25 83 21 97 02/09/18 12:20 84 20 99 02/09/18 12:16 130/51 02/09/18 12:15 83 16 130/51 91 Room Air 02/09/18 12:15 82 24 98 02/09/18 12:15 96 Nasal Cannula 2.0 02/09/18 12:10 83 20 95 02/09/18 12:05 85 20 91 02/09/18 12:01 128/61 02/09/18 12:00 86 16 91 02/09/18 11:55 88 20 91 02/09/18 11:50 90 18 91 Physical Exam General Appearance: no apparent distress ENT: pharynx normal Neck: no JVD Respiratory/Chest: lungs clear, no respiratory distress, no accessory muscle use Cardiovascular: regular rate, rhythm, no gallop Abdomen: normal bowel sounds, soft, no organomegaly, + tenderness (RLQ, LLQ; minimal epigastric tenderness), + pertinent finding (ADRI - supervised by nursing staff - copious stool but no hard/firm stool or impaction; no rectal masses; no gross blood ) Extremities: no pedal edema Neurologic/Psychiatric: no motor/sensory deficits, alert Laboratory Results Last 24 Hours Test 02/09/18 12:04 02/09/18 13:19 02/09/18 15:10 02/09/18 16:20 Lactic Acid Level 3.6 mmol/L 1.8 mmol/L Ammonia < 10.0 umol/L Ethyl Alcohol mg/dL < 3.0 mg/dl Urine Color YELLOW Urine Appearance SL CLOUDY Urine pH 5.5 Urine Specific [place] <= 1.005 Urine Protein NEG Urine Glucose (UA) NEG Urine Ketones NEG Urine Occult Blood TRACE Urine Nitrite NEG Urine Bilirubin NEG Urine Urobilinogen POS Urine Leukocyte Esterase NEG Urine RBC 0-4 /hpf Urine WBC 1-5 /hpf Urine Epithelial Cells >30 /lpf Urine Calcium Oxalate Crystals PRESENT Urine Bacteria 1+ Urine Opiates Screen NEG Urine Methadone, Qualitative NEG Urine Barbiturates NEG Urine Phencyclidine (PCP) Level NEG Ur Amphetamine/Methamphetamine NEG MDMA (Ecstasy) Screen NEG Urine Benzodiazepines Screen NEG Urine Cocaine Metabolite NEG Urine Marijuana (THC) NEG Phosphorus Level 3.1 mg/dl Magnesium Level 1.9 mg/dl Test 02/09/18 19:10 02/09/18 19:58 02/10/18 00:27 02/10/18 05:33 Acetaminophen Level < 2 ug/ml Bedside Glucose 132 mg/dl 105 mg/dl White Blood Count 12.64 K/uL Red Blood Count 3.53 M/uL Hemoglobin 10.4 g/dL Hematocrit 33.8 % Mean Corpuscular Volume 95.8 fL Mean Corpuscular Hemoglobin 29.5 pg Mean Corpuscular Hemoglobin Concent 30.8 g/dl Platelet Count 145 K/uL Mean Platelet Volume 9.5 fL Neutrophils (%) (Auto) 85.9 % Lymphocytes (%) (Auto) 6.6 % Monocytes (%) (Auto) 7.2 % Eosinophils (%) (Auto) 0.0 % Basophils (%) (Auto) 0.1 % Neutrophils # (Auto) 10.86 K/uL Lymphocytes # (Auto) 0.83 K/uL Monocytes # (Auto) 0.91 K/uL Eosinophils # (Auto) 0.00 K/uL Basophils # (Auto) 0.01 K/uL RDW Standard Deviation 47.9 fL RDW Coefficient of Variation 13.8 % Immature Granulocyte % (Auto) 0.2 % Immature Granulocyte # (Auto) 0.03 K/uL Sodium Level 144 mmol/L Potassium Level 4.3 mmol/L Chloride Level 114 mmol/L Carbon Dioxide Level 22 mmol/L Anion Gap 8.0 mmol/L Blood Urea Nitrogen 20 mg/dl Creatinine 0.88 mg/dl Est Creatinine Clear Calc Drug Dose 42.2 ml/min Estimated GFR () 69.4 Estimated GFR (Non- 59.9 BUN/Creatinine Ratio 22.1 Random Glucose 95 mg/dl Calcium Level 7.4 mg/dl Phosphorus Level 3.5 mg/dl Magnesium Level 1.8 mg/dl Total Bilirubin 1.2 mg/dl Direct Bilirubin 1.1 mg/dl Aspartate Amino Transf (AST/SGOT) 425 U/L Alanine Aminotransferase (ALT/SGPT) 358 U/L Alkaline Phosphatase 203 U/L Total Protein 5.7 gm/dl Albumin 2.5 gm/dl Procalcitonin 36.22 ng/ml Random Cortisol 44.27 mcg/dl Chemistry Specimen Hemolysis Assessment and Plan 87yo female with: 1. encephalopathy - resolved. Metabolic - underlying infectious process?? CT head negative for acute stroke. Cannot obtain MRI due to old pacer device in place. EEG negative for seizure focus. 2. abnormal LFTs - this, coupled with leukocytosis and high procalcitonin level - cholangitis? Will continue zosyn; stop vanco. Repeat LFTs in am. Check lipase/amylase now. RUQ u/s - r/o CBD stone. MRCP cannot be obtained because of old pacer device in place. GI consult requested; case d/w them. Pancreatic duct is dilated on CT scan - malignancy?? Stricture?? other?? 3. CKD stage 3 - creatinine at baseline; BMP in am for stability. 4. DVT proph - on eliquis BID. 5. hypotension - resolved. Critical care team thinks this could have been a vagal event. Either way it is resolved. 6. HTN - controlled. Holding RAF for now. 7. h/o stroke, presumably embolic from a. fib - continue eliquis for secondary stroke prevention. 8. CAD, s/p stent 2006 - no evidence of ACS. 9. PAF - remains in NSR at this time. 10. severe fecal impaction - resolved. Needs bowel maintenance. 11. AAA - abdominal CT with stable size of AAA. 12. chronic pain syndrome - fentanyl patch on hold due to yesterday's events. 13. asthma - w/o exacerbation. 14. question of sepsis - see discussion above re: abnormal LFTs. Follow blood cx's. Zosyn, at least until blood cx's are 48 hours old. to transfer from ICU to med/surg later today family updated Continued [facility] stay due to: multiple IV medications needed Discharge planning: uncertain
[2018-02-11] VITALS: BP 150/85; PULSE 69; TEMP 37; O2SAT 94
[2018-02-11] MEDS: PIPERACILL/TAZOBAC IV 3.375 GM in DEXTROSE 5% 100ML IV SCH ×4 (02:26→22:39)
[2018-02-11 05:47] LABS: BASO % 0.2 %; BASO ABS # 0.02 K/uL (0-0.2); EOS % 0.8 %; EOS ABS # 0.07 K/uL (0-0.5); HEMATOCRIT 33.6 % (37-47); HEMOGLOBIN 10.9 g/dL (12.0-16.0); IG# 0.01 K/uL (0.00-0.02); LYMPH % 10.6 %; LYMPH ABS # 0.91 K/uL (1.2-3.4); MEAN CELL VOLUME 95.5 fL (80-100); MEAN CORPUSCULAR HGB CONC 32.4 g/dl (32-36); MEAN PLATELET VOLUME 9.6 fL (7.4-10.4); MONO % 9.8 %; MONO ABS # 0.84 K/uL (0.11-0.59); NEUT % 78.5 %; NEUT ABS # 6.75 K/uL (1.4-6.5); PLATELET COUNT 159 K/uL (130-400)
[2018-02-11 06:15] LABS: ALBUMIN 2.5 gm/dl (3.4-5.0); CALCIUM 7.7 mg/dl (8.5-10.1); CREATININE 0.74 mg/dl (0.60-1.20); POTASSIUM 3.8 mmol/L (3.5-5.1)
[2018-02-11 06:18] LABS: TOTAL PROTEIN 5.8 gm/dl (6.4-8.2)
[2018-02-11 07:26] VITALS: BP 195/80; PULSE 69; TEMP 36.8; O2SAT 97
[2018-02-11] MEDS: GABAPENTIN 100 MG CAP PO SCH ×3 (08:24→19:29)
[2018-02-11] MEDS: DOCUSATE SODIUM 100 MG CAP PO SCH ×2 (08:24→19:28)
[2018-02-11] MEDS: SODIUM CHLORIDE 0.9% 1000ML 1,000 ML IV SCH (08:24)
[2018-02-11] MEDS: APIXABAN 2.5 MG TAB PO SCH ×2 (08:25→19:28)
[2018-02-11] MEDS: POLYETHYLENE (MIRALAX) 17 GM PACK PO SCH ×2 (08:25→19:30)
[2018-02-11] MEDS: CHOLECALCIFEROL 1000 INTER.UNIT TAB PO SCH (08:25)
[2018-02-11] MEDS: IBUPROFEN 200 MG TAB PO PRN (08:47)
--- NOTE | 2018-02-11 09:02 | Gastroenterology Progress Note ---
Progress Note Date of Service: Feb 11, 2018 Subjective Pt evaluation today including: conversation w/ patient, physical exam The patient still notes having epigastric discomfort without nausea or vomiting today. Her liver enzymes do seem to be trending downward as well. Her imaging studies thus far have included a CT scan and right upper quadrant ultrasound without evidence of choledocholithiasis. Review of Systems Constitutional: No fever, No sweats Respiratory: No cough, No wheezing, No dyspnea at rest Abdomen: No nausea, No vomiting, No constipation Medications Current Inpatient Medications Medications (Trade) Dose Ordered Sig/Yifan Route Start Time Stop Time Status Last Admin Dose Admin Ioversol (Optiray 320) 100 ml UD PRN IV 02/09/18 12:15 02/13/18 12:14 Sodium Chloride 1,000 ml @ 50 mls/hr Q20H IV 02/09/18 18:00 03/11/18 17:59 02/11/18 08:24 50 MLS/HR Ondansetron HCl (Zofran Inj) 4 mg Q6H PRN IV 02/09/18 15:45 03/11/18 15:44 Polyethylene (Miralax Powder Packet) 17 gm DAILY PRN PO 02/09/18 15:45 03/11/18 15:44 Cholecalciferol (Vitamin D Tab) 2,000 inter.unit QAM PO 02/10/18 09:00 03/12/18 08:59 02/11/18 08:25 2,000 INTER.UNIT Docusate Sodium (coLACE CAP) 200 mg BID PO 02/09/18 21:00 03/11/18 20:59 02/11/18 08:24 200 MG Gabapentin (Neurontin Cap) 200 mg TID PO 02/09/18 21:00 03/11/18 20:59 02/11/18 08:24 200 MG Polyethylene (Miralax Powder Packet) 17 gm DAILY PO 02/10/18 09:00 03/12/18 08:59 02/11/18 08:25 17 GM Ibuprofen (Advil Tab) 200 mg Q6H PRN PO 02/10/18 04:15 03/12/18 04:14 02/11/18 08:47 200 MG Apixaban (Eliquis Tab) 2.5 mg BID PO 02/10/18 20:00 03/12/18 20:59 02/11/18 08:25 2.5 MG Miscellaneous Information (Consult) 1 ea UD PRN N/A 02/10/18 11:45 03/12/18 11:44 Piperacillin Sod/ Tazobactam Sod 3.375 gm/Dextrose 115 ml @ 28.75 mls/ hr Q8H IV 02/10/18 18:00 02/20/18 17:59 02/11/18 02:26 28.75 MLS/HR Objective Vital Signs Date Time Temp Pulse Resp B/P (MAP) Pulse Ox O2 Delivery O2 Flow Rate FiO2 02/11/18 07:26 36.8 69 18 195/80 (118) 97 Room Air 02/11/18 00:00 37.0 69 20 150/85 (106) 94 Room Air 02/11/18 00:00 Room Air 02/10/18 16:18 36.8 69 18 116/82 (93) 98 Room Air 02/10/18 16:00 Room Air 02/10/18 13:14 36.6 76 19 96 1.0 02/10/18 13:12 168/76 (106) 142/80 (100) 02/10/18 12:02 96 Room Air 02/10/18 10:40 76 19 169/90 (116) 98 02/10/18 10:02 36.6 74 18 184/75 (111) 98 02/10/18 09:09 130/62 (84) 110/72 (85) 02/10/18 09:01 71 14 159/72 (101) 95 Physical Exam General Appearance: no apparent distress Eyes: PERRL Neck: no JVD Respiratory/Chest: + decreased breath sounds Abdomen: soft, + tenderness (Mild diffuse tenderness without specific site) Neurologic/Psych: alert Skin: no jaundice Laboratory Results Last 24 Hours Test 02/10/18 11:29 02/11/18 05:13 Bedside Glucose 103 mg/dl White Blood Count 8.60 K/uL Red Blood Count 3.52 M/uL Hemoglobin 10.9 g/dL Hematocrit 33.6 % Mean Corpuscular Volume 95.5 fL Mean Corpuscular Hemoglobin 31.0 pg Mean Corpuscular Hemoglobin Concent 32.4 g/dl Platelet Count 159 K/uL Mean Platelet Volume 9.6 fL Neutrophils (%) (Auto) 78.5 % Lymphocytes (%) (Auto) 10.6 % Monocytes (%) (Auto) 9.8 % Eosinophils (%) (Auto) 0.8 % Basophils (%) (Auto) 0.2 % Neutrophils # (Auto) 6.75 K/uL Lymphocytes # (Auto) 0.91 K/uL Monocytes # (Auto) 0.84 K/uL Eosinophils # (Auto) 0.07 K/uL Basophils # (Auto) 0.02 K/uL RDW Standard Deviation 49.0 fL RDW Coefficient of Variation 14.0 % Immature Granulocyte % (Auto) 0.1 % Immature Granulocyte # (Auto) 0.01 K/uL Sodium Level 143 mmol/L Potassium Level 3.8 mmol/L Chloride Level 114 mmol/L Carbon Dioxide Level 22 mmol/L Anion Gap 7.0 mmol/L Blood Urea Nitrogen 18 mg/dl Creatinine 0.74 mg/dl Est Creatinine Clear Calc Drug Dose 50.1 ml/min Estimated GFR () 85.6 Estimated GFR (Non- 73.9 BUN/Creatinine Ratio 23.7 Random Glucose 84 mg/dl Calcium Level 7.7 mg/dl Total Bilirubin 0.8 mg/dl Aspartate Amino Transf (AST/SGOT) 292 U/L Alanine Aminotransferase (ALT/SGPT) 313 U/L Alkaline Phosphatase 193 U/L Total Protein 5.8 gm/dl Albumin 2.5 gm/dl Globulin 3.3 gm/dl Albumin/Globulin Ratio 0.8 Assessment and Plan Patient with a history of liver test elevation and ductal dilation on imaging studies without evidence of choledocholithiasis. As her bilirubin is normal I am not certain if her symptoms are related to de nate gallstones. Typically we would recommend an MR CP, however this is not possible due to her other medical problems and her Cardiac history with a pacemaker. At this time I would suggest completion of a 10 day course of antibiotics and outpatient arrangements of endoscopic ultrasound to determine if she does have gallstones within her common bile duct. I would also suggest that serologies be obtained for basic liver disease such as autoimmune liver disease, and viral serologies Recomendations: RAVI Igg HCV / HBV and HAV serologies OP EUS
[2018-02-11 10:04] VITALS: BP 197/84
[2018-02-11] MEDS ORDERED: LISINOPRIL 10 MG TAB PO STA (10:05)
[2018-02-11 10:52] LABS: HEP C IGG 13 YRS+OLDER_RFLX NEG (NEG)
[2018-02-11 11:24] VITALS: BP 197/73
[2018-02-11 13:38] VITALS: BP 189/78; PULSE 74
[2018-02-11] MEDS: FENTANYL 12 MCG/HR TDSY TD SCH ×2 (13:39→16:03)
[2018-02-11 15:47] VITALS: BP 190/77; PULSE 68; TEMP 37; O2SAT 96
[2018-02-11] MEDS ORDERED: SENNA 8.6 MG TAB PO ONE (16:00)
[2018-02-11] MEDS: CHECK FENTANYL PATCH PLACEMENT SCH ×2 (16:03→23:35)
[2018-02-11] MEDS ORDERED: POTASSIUM CHLORIDE 10 MEQ TABCR PO STA (18:55)
[2018-02-11] MEDS ORDERED: FUROSEMIDE 20 MG TAB PO STA (18:55)
--- NOTE | 2018-02-11 21:40 | Progress Note ---
Subjective Date of Service: Feb 11, 2018. Subjective Pt evaluation today including: conversation w/ patient, conversation w/ family (POA, and daughter), physical exam, chart review, lab review, review of inpatient medication list Pain: lower abdomen, slightly in the upper abdomen as well PO Intake: improving slowly Voiding: mata catheter in place patient initially today stated she didn't want to restart her fentanyl patch for "fear of getting hooked" however, she has been on the fentanyl patch for 2-3 years with varying doses from 12-25mcg in the past norco/vicodin and oxycodone didn't help her chronic back pain her family is mostly concerned about her constipation and propensity for fecal impaction she uses combination of once daily miralax + colace only for constipation patient lives w/ daughter -- daughter reports she can take her mother home "if she can pivot and get into a chair" she is very sedentary at home Problem List Medical Problems: (1) Bilateral leg pain Status: Acute (2) Change in mental status Status: Acute (3) Confusion Status: Acute (4) CVA (cerebral vascular accident) Status: Acute (5) Dizziness Status: Acute (6) Elevated liver enzymes Status: Acute (7) Headache Status: Acute (8) Hypertension Status: Acute (9) Nausea Status: Acute (10) Near syncope Status: Acute (11) Pneumonia Status: Acute (12) Right sided abdominal pain Status: Acute (13) Weakness Status: Acute (14) Weakness generalized Status: Acute Review of Systems Constitutional: No fever, No chills Respiratory: No shortness of breath Cardiac: + edema, No chest pain Abdomen: + pain, No nausea, No vomiting, No diarrhea, No constipation, No GI bleeding Objective Vital Signs Date Time Temp Pulse Resp B/P (MAP) Pulse Ox O2 Delivery O2 Flow Rate FiO2 02/11/18 19:30 Room Air 02/11/18 15:47 37.0 68 18 190/77 (114) 96 Room Air 02/11/18 15:18 Room Air 02/11/18 13:38 74 189/78 (115) 02/11/18 11:24 197/73 (114) 02/11/18 11:00 Room Air 02/11/18 10:04 197/84 (121) 02/11/18 07:26 36.8 69 18 195/80 (118) 97 Room Air 02/11/18 00:00 37.0 69 20 150/85 (106) 94 Room Air 02/11/18 00:00 Room Air Physical Exam General Appearance: no apparent distress ENT: pharynx normal Neck: + JVD (mild) Respiratory/Chest: no respiratory distress, no accessory muscle use, + decreased breath sounds (bases) Cardiovascular: regular rate, rhythm, no gallop Abdomen: normal bowel sounds, soft, no organomegaly, + tenderness (LLQ, minimally RLQ; minimally high epigastric region as well ) Neurologic/Psychiatric: alert, oriented x 3 Laboratory Results Last 24 Hours Test 02/11/18 05:13 02/11/18 09:36 White Blood Count 8.60 K/uL Red Blood Count 3.52 M/uL Hemoglobin 10.9 g/dL Hematocrit 33.6 % Mean Corpuscular Volume 95.5 fL Mean Corpuscular Hemoglobin 31.0 pg Mean Corpuscular Hemoglobin Concent 32.4 g/dl Platelet Count 159 K/uL Mean Platelet Volume 9.6 fL Neutrophils (%) (Auto) 78.5 % Lymphocytes (%) (Auto) 10.6 % Monocytes (%) (Auto) 9.8 % Eosinophils (%) (Auto) 0.8 % Basophils (%) (Auto) 0.2 % Neutrophils # (Auto) 6.75 K/uL Lymphocytes # (Auto) 0.91 K/uL Monocytes # (Auto) 0.84 K/uL Eosinophils # (Auto) 0.07 K/uL Basophils # (Auto) 0.02 K/uL RDW Standard Deviation 49.0 fL RDW Coefficient of Variation 14.0 % Immature Granulocyte % (Auto) 0.1 % Immature Granulocyte # (Auto) 0.01 K/uL Sodium Level 143 mmol/L Potassium Level 3.8 mmol/L Chloride Level 114 mmol/L Carbon Dioxide Level 22 mmol/L Anion Gap 7.0 mmol/L Blood Urea Nitrogen 18 mg/dl Creatinine 0.74 mg/dl Est Creatinine Clear Calc Drug Dose 50.1 ml/min Estimated GFR () 85.6 Estimated GFR (Non- 73.9 BUN/Creatinine Ratio 23.7 Random Glucose 84 mg/dl Calcium Level 7.7 mg/dl Total Bilirubin 0.8 mg/dl Aspartate Amino Transf (AST/SGOT) 292 U/L Alanine Aminotransferase (ALT/SGPT) 313 U/L Alkaline Phosphatase 193 U/L Total Protein 5.8 gm/dl Albumin 2.5 gm/dl Globulin 3.3 gm/dl Albumin/Globulin Ratio 0.8 Hepatitis B Surface Antigen NEG Hepatitis C Antibody NEG Assessment and Plan 87yo female with: 1. encephalopathy - resolved. Metabolic - underlying infectious process?? CT head negative for acute stroke. Could not obtain MRI due to old pacer device in place. EEG negative for seizure focus. 2. abnormal LFTs - improved today. The abnormal LFTs coupled with leukocytosis and high procalcitonin level at admission gave some concern for cholangitis or a passed retained gallstone but unable to prove such. Appreciate GI consultation who recommends 10 days of PO abx after d/c to cover the biliary tree. Cont zosyn today; can likely transition to PO abx tomorrow. Blood cx's thus far negative. Repeat LFTs in am. Unfortunately MRCP cannot be obtained because of old pacer device in place. Plan - outpatient EUS. hepatitis w/u ordered today by Dr. Kellogg. Again 10- day course of oral abx recommended. 3. CKD stage 3 - creatinine at baseline; BMP in am for stability. 4. DVT proph - on eliquis BID. 5. hypotension - resolved. Critical care team thinks this could have been a vagal event. Either way it is resolved. 6. HTN - uncontrolled - resume lisinopril 10mg BID. Could some of the spike in BP from narcotic withdrawal and/or her back pain itself? 7. h/o stroke, presumably embolic from a. fib - continue eliquis for secondary stroke prevention. 8. CAD, s/p stent 2006 - no evidence of ACS. 9. PAF - remains in NSR at this time. 10. severe fecal impaction - resolved. Needs bowel maintenance. Senna, miralax BID, and colace BID ordered. Could consider movantik in light of chronic narcotic usage. 11. AAA - abdominal CT with stable size of AAA. 12. chronic pain syndrome - lengthy discussion held with patient/family and POA at bedside. She has been on fentanyl patch for nearly 3 years. Abrupt termination of such will lead to narcotic withdrawal and likely terrible back pain. I recommended resuming the fentanyl at 12mcg q72h. She could stop the fentanyl but we would need to use short-acting pain meds to keep her comfortable. I don' t think short-acting meds would help, however, as they have not been effective in the past. I do not suspect her presenting altered MS was due to narcotics either. After pros/cons we have elected to resume the fentanyl 12mcg. 13. asthma - w/o exacerbation. 14. question of sepsis - see discussion above re: abnormal LFTs. blood cx's thus far negative. Zosyn today; likely PO abx tomorrow. Repeat procalcitonin in am. 15. edema - lasix 20mg PO today. family updated await PT, OT evals to see if strong enough to return home Continued [facility] stay due to: inadequate oral pain control, ambulation difficulties, multiple IV medications needed Discharge planning: uncertain
[2018-02-11] MEDS ORDERED: LISINOPRIL 10 MG TAB PO ONE (22:00)
--- NOTE | 2018-02-11 23:46 | Progress Note ---
Post ICU Progress Note Date & Time Feb 11, 2018 at 23:45 Vital Signs Vital Signs Past 12 Hours Date Time Temp Pulse Resp B/P (MAP) Pulse Ox O2 Delivery O2 Flow Rate FiO2 02/11/18 19:30 Room Air 02/11/18 15:47 37.0 68 18 190/77 (114) 96 Room Air 02/11/18 15:18 Room Air 02/11/18 13:38 74 189/78 (115) Notes Mental Status: alert / awake, participated in evaluation Nausea / Vomiting: adequately controlled Pain: adequately controlled Airway Patency, RR, SpO2: stable & adequate BP & HR: stable & adequate Tati Davalos is a very nathan lady who presented to the ICU secondary to a sudden decline in mental status. Pt was a DNR/DNI status and was not intubated in the ICU. Her toxicology screen was negative. Over the course of the night, her mental status greatly improved; by morning she was at baseline. At this time GI is following secondary to a increase in LFTs. Hepatitis panel pending. CT without diagnostic results. She is being treated for possible infection, however, a cause of her AMS has not been determined. The differential includes cerebral vascular event, vasovagal, metabolic, and infectious among others. Pt is extremely happy with her progress thus far. She was transferred room 401 the following morning. She hopes to return home, where her daughter Tati cares for her. Pt is not aware of current plan for discharge. PT/OT is working with her daily now. There are no acute changes to her physical exam. Pt had no acute complaints. Consider outpatient follow up in 1 to 2 weeks with: Alexei Redman MD Repeat imaging needed: Per GI Follow up cultures: NA Reviewed progress notes, labs, and inpatient medication list Continue current management Additional recommendations: None Thank you for including us in the care of this pt. She is hemodynamically stable; Critical Care will sign off at this time. Please feel free to reconsult as needed. Level I inpatient billing Consults & Procedures Consultants: GI: Dr. Kellogg Neuro: Dr. Montalvo Procedures: EEG Abd US
[2018-02-12] VITALS (9 sets, daily range): BP systolic 134–210; BP diastolic 67–84; PULSE 59–71; TEMP 36.4–36.6; O2SAT 96–99
[2018-02-12] MEDS: IBUPROFEN 200 MG TAB PO PRN ×2 (01:39→07:57)
[2018-02-12] MEDS: PIPERACILL/TAZOBAC IV 3.375 GM in DEXTROSE 5% 100ML IV SCH ×4 (04:54→22:29)
[2018-02-12 06:43] LABS: ALBUMIN 2.3 gm/dl (3.4-5.0); CALCIUM 8.7 mg/dl (8.5-10.1); CREATININE 0.76 mg/dl (0.60-1.20); POTASSIUM 3.6 mmol/L (3.5-5.1)
[2018-02-12 06:46] LABS: TOTAL PROTEIN 5.8 gm/dl (6.4-8.2)
[2018-02-12] MEDS: LISINOPRIL 10 MG TAB PO SCH ×2 (07:56→19:49)
[2018-02-12] MEDS: DOCUSATE SODIUM 100 MG CAP PO SCH ×2 (07:56→19:50)
[2018-02-12] MEDS: APIXABAN 2.5 MG TAB PO SCH ×2 (07:57→19:49)
[2018-02-12] MEDS: SENNA 8.6 MG TAB PO SCH (07:57)
[2018-02-12] MEDS: POLYETHYLENE (MIRALAX) 17 GM PACK PO SCH ×2 (07:57→19:50)
[2018-02-12] MEDS: GABAPENTIN 100 MG CAP PO SCH ×3 (07:57→19:49)
[2018-02-12] MEDS: CHOLECALCIFEROL 1000 INTER.UNIT TAB PO SCH (07:57)
[2018-02-12] MEDS: CHECK FENTANYL PATCH PLACEMENT SCH ×3 (07:57→23:53)
[2018-02-12] MEDS ORDERED: HydrALAZINE HCL 20 MG/ML VIAL IV. ONE (08:35)
[2018-02-12] MEDS ORDERED: HydrALAZINE HCL 20 MG/ML VIAL IV. PRN (08:45)
--- NOTE | 2018-02-12 09:12 | Gastroenterology Progress Note ---
Progress Note Date of Service: Feb 12, 2018 Subjective Pt evaluation today including: conversation w/ patient, physical exam The patient's liver enzymes continue to improve. She does report having severe back discomfort which was treated with reinduction of a pain patch yesterday evening. Review of Systems Respiratory: No cough, No wheezing Cardiac: No chest pain, No palpitations Abdomen: No nausea, No GI bleeding, No acolic stools Musculoskeletal: + problem reported (Back pain) Medications Current Inpatient Medications Medications (Trade) Dose Ordered Sig/Yifan Route Start Time Stop Time Status Last Admin Dose Admin Ioversol (Optiray 320) 100 ml UD PRN IV 02/09/18 12:15 02/13/18 12:14 Ondansetron HCl (Zofran Inj) 4 mg Q6H PRN IV 02/09/18 15:45 03/11/18 15:44 Polyethylene (Miralax Powder Packet) 17 gm DAILY PRN PO 02/09/18 15:45 03/11/18 15:44 Cholecalciferol (Vitamin D Tab) 2,000 inter.unit QAM PO 02/10/18 09:00 03/12/18 08:59 02/12/18 07:57 2,000 INTER.UNIT Docusate Sodium (coLACE CAP) 200 mg BID PO 02/09/18 21:00 03/11/18 20:59 02/12/18 07:56 200 MG Gabapentin (Neurontin Cap) 200 mg TID PO 02/09/18 21:00 03/11/18 20:59 02/12/18 07:57 200 MG Ibuprofen (Advil Tab) 200 mg Q6H PRN PO 02/10/18 04:15 03/12/18 04:14 02/12/18 07:57 200 MG Apixaban (Eliquis Tab) 2.5 mg BID PO 02/10/18 20:00 03/12/18 20:59 02/12/18 07:57 2.5 MG Miscellaneous Information (Consult) 1 ea UD PRN N/A 02/10/18 11:45 03/12/18 11:44 Piperacillin Sod/ Tazobactam Sod 3.375 gm/Dextrose 115 ml @ 230 mls/hr Q6H IV 02/11/18 16:00 02/20/18 17:59 02/12/18 04:54 230 MLS/HR Fentanyl (Duragesic Patch) 12 mcg Q72H TD 02/11/18 12:30 02/25/18 12:29 02/11/18 16:03 12 MCG Miscellaneous (Fentanyl Patch Remove & Waste) 1 ea Q72H N/A 02/14/18 12:29 03/16/18 12:28 Miscellaneous Information (Check Fentanyl Patch Placement) 1 ea QS N/A 02/11/18 16:00 03/13/18 15:59 02/12/18 07:57 1 EA Polyethylene (Miralax Powder Packet) 17 gm BID PO 02/11/18 20:00 03/12/18 08:59 02/12/18 07:57 17 GM Senna (Senokot Tab) 17.2 mg QAM PO 02/12/18 08:00 03/14/18 07:59 02/12/18 07:57 17.2 MG Lisinopril (Zestril Tab) 10 mg BID PO 02/12/18 08:00 03/14/18 07:59 02/12/18 07:56 10 MG Hydralazine HCl (HydrALAZINE INJ) 10 mg Q8H PRN IV. 02/12/18 08:45 03/14/18 08:44 Objective Vital Signs Date Time Temp Pulse Resp B/P (MAP) Pulse Ox O2 Delivery O2 Flow Rate FiO2 02/12/18 07:25 36.4 59 16 201/78 (119) 98 Room Air 210/78 (122) 02/12/18 00:00 36.6 69 20 181/78 (112) 96 Room Air 02/12/18 00:00 Room Air 02/11/18 19:30 Room Air 02/11/18 15:47 37.0 68 18 190/77 (114) 96 Room Air 02/11/18 15:18 Room Air 02/11/18 13:38 74 189/78 (115) 02/11/18 11:24 197/73 (114) 02/11/18 11:00 Room Air 02/11/18 10:04 197/84 (121) Physical Exam General Appearance: no apparent distress Eyes: PERRL Neck: no JVD Respiratory/Chest: + decreased breath sounds Cardiovascular: + systolic murmur Abdomen: soft, + tenderness (mild tenderness in the ruq and LUQ) Laboratory Results Last 24 Hours Test 02/11/18 09:36 02/12/18 05:20 Hepatitis B Surface Antigen NEG Hepatitis C Antibody NEG Sodium Level 143 mmol/L Potassium Level 3.6 mmol/L Chloride Level 111 mmol/L Carbon Dioxide Level 25 mmol/L Anion Gap 7.0 mmol/L Blood Urea Nitrogen 14 mg/dl Creatinine 0.76 mg/dl Est Creatinine Clear Calc Drug Dose 50.5 ml/min Estimated GFR () 82.9 Estimated GFR (Non- 71.5 BUN/Creatinine Ratio 18.5 Random Glucose 103 mg/dl Calcium Level 8.7 mg/dl Total Bilirubin 0.8 mg/dl Aspartate Amino Transf (AST/SGOT) 212 U/L Alanine Aminotransferase (ALT/SGPT) 257 U/L Alkaline Phosphatase 198 U/L Total Protein 5.8 gm/dl Albumin 2.3 gm/dl Globulin 3.5 gm/dl Albumin/Globulin Ratio 0.7 Procalcitonin 10.00 ng/ml Assessment and Plan Patient with a history of liver test elevation and ductal dilation on imaging studies without evidence of choledocholithiasis. As her bilirubin is normal I am not certain if her symptoms are related to de nate gallstones. Typically we would recommend an MRCP, however this is not possible due to her other medical problems and her Cardiac history with a pacemaker. At this time I would still suggest completion of a 10 day course of antibiotics and outpatient arrangements of endoscopic ultrasound to determine if she does have gallstones within her common bile duct. I ordered basic liver serologies yesterday to look for alternate causes of liver enzyme elevation. Recomendations: Await serologies Please call with any questions OP EUS
[2018-02-12] MEDS ORDERED: HydrALAZINE HCL 20 MG/ML VIAL IV. STA (16:42)
[2018-02-12] MEDS ORDERED: NIFEdipine 30 MG CR TAB PO STA (17:10)
[2018-02-12] MEDS ORDERED: OXYCODONE HCL IR 5 MG TAB (IMMEDIATE RELEASE) PO PRN (17:15)
--- NOTE | 2018-02-12 17:53 | Hospitalist Progress Note ---
Hospitalist Progress Note Date of Service Feb 12, 2018. Subjective Pt evaluation today including: conversation w/ patient, chart review, lab review, review of inpatient medication list Patient feels her lower back pain is better today at a 2 out of 10 in severity. She was restarted on her fentanyl patch yesterday. Her blood pressures have been very high today but she has no symptoms of this. Denies headache, chest pain, shortness of breath. She is moving her bowels quite a bit today after receiving laxatives. The stool is soft but formed. Has some abdominal pain she thinks due to the constipation but this is improving. Constitutional: No fever All Other Systems: Reviewed and Negative Objective Vital Signs Date Time Temp Pulse Resp B/P (MAP) Pulse Ox O2 Delivery O2 Flow Rate FiO2 02/12/18 16:18 189/84 (119) 02/12/18 16:05 Room Air 02/12/18 15:41 36.6 69 18 196/70 (112) 99 Room Air 02/12/18 13:35 134/67 (89) 02/12/18 11:26 188/74 (112) 02/12/18 10:12 Room Air 02/12/18 09:50 66 176/79 (111) 02/12/18 07:25 36.4 59 16 201/78 (119) 98 Room Air 210/78 (122) 02/12/18 00:00 36.6 69 20 181/78 (112) 96 Room Air 02/12/18 00:00 Room Air 02/11/18 19:30 Room Air Physical Exam General Appearance: WD/WN, no apparent distress Eyes: normal inspection, sclerae normal ENT: hearing grossly normal Neck: trachea midline Respiratory/Chest: lungs clear, normal breath sounds, no respiratory distress, no accessory muscle use Cardiovascular: regular rate, rhythm, no edema, no gallop, no murmur Abdomen: normal bowel sounds, soft, + tenderness (Diffuse mild tenderness to palpation without guarding or rebound tenderness, no masses) Extremities: non-tender, normal inspection, no pedal edema, no calf tenderness Neurologic/Psychiatric: alert, normal mood/affect, oriented x 3 Skin: normal color, warm/dry, no rash Laboratory Results Last 24 Hours Test 02/12/18 05:20 Sodium Level 143 mmol/L Potassium Level 3.6 mmol/L Chloride Level 111 mmol/L Carbon Dioxide Level 25 mmol/L Anion Gap 7.0 mmol/L Blood Urea Nitrogen 14 mg/dl Creatinine 0.76 mg/dl Est Creatinine Clear Calc Drug Dose 50.5 ml/min Estimated GFR () 82.9 Estimated GFR (Non- 71.5 BUN/Creatinine Ratio 18.5 Random Glucose 103 mg/dl Calcium Level 8.7 mg/dl Total Bilirubin 0.8 mg/dl Aspartate Amino Transf (AST/SGOT) 212 U/L Alanine Aminotransferase (ALT/SGPT) 257 U/L Alkaline Phosphatase 198 U/L Total Protein 5.8 gm/dl Albumin 2.3 gm/dl Globulin 3.5 gm/dl Albumin/Globulin Ratio 0.7 Procalcitonin 10.00 ng/ml Assessment and Plan This patient is an 87 y/o female with a history of HTN, HLD, ischemic CVA, PAF on Eliquis, CAD with h/o [place] s/p stent to LAD in 2006, h/o SVT s/p pacemaker ( that is now nonfunctioning), AAA, chronic pain syndrome and opioid dependence, polyneuropathy, asthma, and GERD who presented with acute encephalopathy, nausea and vomiting, as well as a severe headache and slurred speech. She was transported to the ER via EMS, and stroke alert was called. Neurology evaluated via telemedicine, Dr. Diaz from [place]. A CT and CTA of the head is negative for any acute findings. She was noted to have significantly elevated LFTs, a severely elevated procalcitonin, and an elevated lactate. The patient also had a CT of the abdomen/pelvis showing known AAA measuring approximately 3.8 cm, rectosigmoid impaction and severe constipation. She was admitted with acute metabolic encephalopathy, severe sepsis with likely GI/biliary tract as the source. Acute metabolic encephalopathy/severe sepsis resolved. Was likely secondary to sepsis and suspected cholangitis. Pro-calcitonin was severely elevated in the 30s on admission, now decreased down to 10 CT head negative for acute stroke 2. Could not obtain MRI due to old pacer device in place. EEG negative for seizure focus. -Treating with antibiotics for GI/biliary tract source of sepsis -Follow blood cultures-no growth to date Abnormal LFTs/suspected cholangitis-continue to improve today. T bili elevated at 1.4 with elevated direct bilirubin of 1.0, AST in the 600s, ALT in the 300s, alkaline phosphatase in the 250s all on admission and continue to trend downward but not normal yet CT abdomen/pelvis with significantly dilated CBD and pancreatic duct, has history of cholecystectomy The abnormal LFTs coupled with leukocytosis and high procalcitonin level at admission gave some concern for cholangitis or a passed retained gallstone but unable to prove such. Appreciate GI consultation who recommends 10 days of PO abx after d/c to cover the biliary tree. Unfortunately MRCP cannot be obtained because of old pacer device in place. Cont zosyn today; can likely transition to PO abx tomorrow. Will switch to Augmentin tomorrow Blood cx's thus far negative. -Repeat LFTs in am. -Plan - outpatient EUS after discharge. -Hepatitis w/u ordered today by Dr. Kellogg and still pending CKD stage 3 - creatinine at baseline -Renally dose medications -Avoid nephrotoxins Hypotension - resolved. Critical care team thinks this could have been a vagal event. Either way it is resolved. HTN -severely uncontrolled and has previous admissions for hypertensive urgency as well. Could some of the spike in BP from narcotic withdrawal and/or her back pain itself. Ibuprofen could also be contributing -Discontinue ibuprofen -Continue lisinopril 10mg BID. -Add nifedipine 30 mg extended release 1 now and then daily in the morning -Continue IV hydralazine as needed -It appears she used to be on beta-blockers but is not any longer possibly due to mention of bradycardia on previous admissions H/o stroke, presumably embolic from a. fib - continue eliquis for secondary stroke prevention but her weight here is greater than 60 kg and creatinine is normal-I will increase her Eliquis to 5 mg twice a day. CAD, s/p stent 2006 - no evidence of ACS. PAF - remains in NSR at this time. -Increase Eliquis to 5 mg twice a day as above Severe fecal impaction - resolved. Needs bowel maintenance. -Continue senna, miralax BID, and colace BID ordered. -Could consider movantik in light of chronic narcotic usage. AAA - abdominal CT with stable size of AAA. Chronic pain syndrome/opioid dependence/chronic lower back pain-improved after restarting fentanyl patch yesterday. She has been on fentanyl patch for nearly 3 years. Abrupt termination of such will lead to narcotic withdrawal and likely terrible back pain. I do not suspect her presenting altered MS was due to narcotics either. -Add oxycodone 5 mg p.o. every 4 hours as needed breakthrough pain Asthma - w/o exacerbation. Peripheral edema -resolved after Lasix 20mg PO 1 given Prophylaxis-Eliquis Disposition-OT evaluation recommends return home with home health and this is the patient's choice-she has 24-hour care with her daughter living with her who is quitting her job supposedly Will likely need 1-2 more days of hospitalization to ensure LFTs continue to trend downward and blood pressures are better controlled
[2018-02-13] MEDS: PIPERACILL/TAZOBAC IV 3.375 GM in DEXTROSE 5% 100ML IV SCH ×2 (04:20→10:09)
[2018-02-13 05:44] LABS: BASO % 0.3 %; BASO ABS # 0.02 K/uL (0-0.2); EOS % 3.5 %; EOS ABS # 0.23 K/uL (0-0.5); HEMATOCRIT 33.5 % (37-47); HEMOGLOBIN 10.8 g/dL (12.0-16.0); IG# 0.03 K/uL (0.00-0.02); LYMPH % 18.5 %; LYMPH ABS # 1.21 K/uL (1.2-3.4); MEAN CELL VOLUME 93.8 fL (80-100); MEAN CORPUSCULAR HEMOGLOBIN 30.3 pg (25-34); MEAN CORPUSCULAR HGB CONC 32.2 g/dl (32-36); MEAN PLATELET VOLUME 9.4 fL (7.4-10.4); MONO % 9.5 %; MONO ABS # 0.62 K/uL (0.11-0.59); NEUT % 67.7 %; NEUT ABS # 4.44 K/uL (1.4-6.5); PLATELET COUNT 180 K/uL (130-400); RED CELL DISTRIBUTION WIDTH CV 13.7 % (11.5-14.5); WHITE BLOOD COUNT 6.55 K/uL (4.8-10.8)
[2018-02-13 06:11] LABS: ALBUMIN 2.1 gm/dl (3.4-5.0); CALCIUM 8.2 mg/dl (8.5-10.1); CREATININE 0.79 mg/dl (0.60-1.20); POTASSIUM 3.6 mmol/L (3.5-5.1); TOTAL PROTEIN 5.5 gm/dl (6.4-8.2)
[2018-02-13 07:55] VITALS: BP 114/64; PULSE 81; TEMP 36.3; O2SAT 96
[2018-02-13] MEDS ORDERED: NIFEdipine 30 MG CR TAB PO SCH (08:00)
[2018-02-13] MEDS: SENNA 8.6 MG TAB PO SCH (08:16)
[2018-02-13] MEDS: CHOLECALCIFEROL 1000 INTER.UNIT TAB PO SCH (08:16)
[2018-02-13] MEDS: DOCUSATE SODIUM 100 MG CAP PO SCH (08:17)
[2018-02-13] MEDS: GABAPENTIN 100 MG CAP PO SCH ×3 (08:17→14:12)
[2018-02-13] MEDS: LISINOPRIL 10 MG TAB PO SCH (08:17)
[2018-02-13] MEDS: CHECK FENTANYL PATCH PLACEMENT SCH (08:18)
[2018-02-13] MEDS: POLYETHYLENE (MIRALAX) 17 GM PACK PO SCH (08:18)
[2018-02-13 08:30] VITALS: O2SAT 96
[2018-02-13 09:00] VITALS: O2SAT 96
[2018-02-13] MEDS: APIXABAN 2.5 MG TAB PO SCH (10:09)
--- NOTE | 2018-02-13 11:26 | Gastroenterology Progress Note ---
Progress Note Date of Service: Feb 13, 2018 Subjective Pt evaluation today including: conversation w/ patient, physical exam, chart review, lab review, review of inpatient medication list Pt c/o generalized abd pain. Had large BM today. Denies any n/v. LFTs trending down. Review of Systems Constitutional: No fever, No chills Respiratory: No cough, No shortness of breath Cardiac: No chest pain Abdomen: + pain, No nausea, No vomiting Skin: No rash, No itch, No jaundice Medications Current Inpatient Medications Medications (Trade) Dose Ordered Sig/Yifan Route Start Time Stop Time Status Last Admin Dose Admin Ioversol (Optiray 320) 100 ml UD PRN IV 02/09/18 12:15 02/13/18 12:14 Ondansetron HCl (Zofran Inj) 4 mg Q6H PRN IV 02/09/18 15:45 03/11/18 15:44 Polyethylene (Miralax Powder Packet) 17 gm DAILY PRN PO 02/09/18 15:45 03/11/18 15:44 Cholecalciferol (Vitamin D Tab) 2,000 inter.unit QAM PO 02/10/18 09:00 03/12/18 08:59 02/13/18 08:16 2,000 INTER.UNIT Docusate Sodium (coLACE CAP) 200 mg BID PO 02/09/18 21:00 03/11/18 20:59 02/13/18 08:17 200 MG Gabapentin (Neurontin Cap) 200 mg TID PO 02/09/18 21:00 03/11/18 20:59 02/13/18 08:17 200 MG Miscellaneous Information (Consult) 1 ea UD PRN N/A 02/10/18 11:45 03/12/18 11:44 Piperacillin Sod/ Tazobactam Sod 3.375 gm/Dextrose 115 ml @ 230 mls/hr Q6H IV 02/11/18 16:00 02/20/18 17:59 02/13/18 10:09 230 MLS/HR Fentanyl (Duragesic Patch) 12 mcg Q72H TD 02/11/18 12:30 02/25/18 12:29 02/11/18 16:03 12 MCG Miscellaneous (Fentanyl Patch Remove & Waste) 1 ea Q72H N/A 02/14/18 12:29 03/16/18 12:28 Miscellaneous Information (Check Fentanyl Patch Placement) 1 ea QS N/A 02/11/18 16:00 03/13/18 15:59 02/13/18 08:18 1 EA Polyethylene (Miralax Powder Packet) 17 gm BID PO 02/11/18 20:00 03/12/18 08:59 02/13/18 08:18 17 GM Senna (Senokot Tab) 17.2 mg QAM PO 02/12/18 08:00 03/14/18 07:59 02/13/18 08:16 17.2 MG Lisinopril (Zestril Tab) 10 mg BID PO 02/12/18 08:00 03/14/18 07:59 02/13/18 08:17 10 MG Hydralazine HCl (HydrALAZINE INJ) 10 mg Q8H PRN IV. 02/12/18 08:45 03/14/18 08:44 02/12/18 11:23 10 MG Nifedipine (Procardia Xl Tab) 30 mg QAM PO 02/13/18 08:00 03/15/18 07:59 02/13/18 08:16 30 MG Oxycodone HCl (Roxicodone Immediate Rel Tab) 5 mg Q4 PRN PO 02/12/18 17:15 02/26/18 17:14 02/13/18 02:20 5 MG Apixaban (Eliquis Tab) 5 mg BID PO 02/12/18 20:00 03/12/18 20:59 02/13/18 10:09 5 MG Objective Vital Signs Date Time Temp Pulse Resp B/P (MAP) Pulse Ox O2 Delivery O2 Flow Rate FiO2 02/13/18 08:30 96 Room Air 02/13/18 07:55 36.3 81 16 114/64 (81) 96 Room Air 02/13/18 00:00 Room Air 02/12/18 23:01 36.6 71 20 149/68 (95) 96 Room Air 02/12/18 20:00 Room Air 02/12/18 17:35 193/75 (114) 02/12/18 16:18 189/84 (119) 02/12/18 16:05 Room Air 02/12/18 15:41 36.6 69 18 196/70 (112) 99 Room Air 02/12/18 13:35 134/67 (89) 02/12/18 11:26 188/74 (112) Physical Exam General Appearance: WD/WN, no apparent distress Eyes: normal inspection, PERRL, EOMI Neck: supple, no JVD, trachea midline Respiratory/Chest: normal breath sounds, no respiratory distress, no accessory muscle use Cardiovascular: regular rate, rhythm, no gallop, no murmur Abdomen: normal bowel sounds, soft, + tenderness (generalized ) Extremities: normal inspection, no pedal edema, no calf tenderness Neurologic/Psych: alert, normal mood/affect, oriented x 3 Skin: normal color, no jaundice, no rash Laboratory Results Last 24 Hours Test 02/13/18 05:30 White Blood Count 6.55 K/uL Red Blood Count 3.57 M/uL Hemoglobin 10.8 g/dL Hematocrit 33.5 % Mean Corpuscular Volume 93.8 fL Mean Corpuscular Hemoglobin 30.3 pg Mean Corpuscular Hemoglobin Concent 32.2 g/dl Platelet Count 180 K/uL Mean Platelet Volume 9.4 fL Neutrophils (%) (Auto) 67.7 % Lymphocytes (%) (Auto) 18.5 % Monocytes (%) (Auto) 9.5 % Eosinophils (%) (Auto) 3.5 % Basophils (%) (Auto) 0.3 % Neutrophils # (Auto) 4.44 K/uL Lymphocytes # (Auto) 1.21 K/uL Monocytes # (Auto) 0.62 K/uL Eosinophils # (Auto) 0.23 K/uL Basophils # (Auto) 0.02 K/uL RDW Standard Deviation 47.0 fL RDW Coefficient of Variation 13.7 % Immature Granulocyte % (Auto) 0.5 % Immature Granulocyte # (Auto) 0.03 K/uL Sodium Level 143 mmol/L Potassium Level 3.6 mmol/L Chloride Level 109 mmol/L Carbon Dioxide Level 26 mmol/L Anion Gap 8.0 mmol/L Blood Urea Nitrogen 9 mg/dl Creatinine 0.79 mg/dl Est Creatinine Clear Calc Drug Dose 47.1 ml/min Estimated GFR () 79.1 Estimated GFR (Non- 68.3 BUN/Creatinine Ratio 11.2 Random Glucose 90 mg/dl Calcium Level 8.2 mg/dl Magnesium Level 1.9 mg/dl Total Bilirubin 0.6 mg/dl Direct Bilirubin 0.3 mg/dl Aspartate Amino Transf (AST/SGOT) 108 U/L Alanine Aminotransferase (ALT/SGPT) 182 U/L Alkaline Phosphatase 167 U/L Total Protein 5.5 gm/dl Albumin 2.1 gm/dl Procalcitonin 4.47 ng/ml Assessment and Plan Patient is a 87 y/o female currently followed for elevated LFTs, and CBD dilation on imaging studies w/o overt evidence of choledocholithiasis. Unable to perform MRCP given her pacemaker status. LFTs are decreasing - F/U liver serologies to r/o autoimmune hepatitis. Other consideration for her previously elevated LFTs may be related to ischemic condition given her cardiac history and hypotension on admission. - EUS to r/o gallstones in outpt setting - Will monitor. I performed a history and physical examination of the patient. I have discussed the patient's case, impression and plan with MAGY Hairston. Her note reflects my findings and plan. Improving liver enzymes. Dr. Kellogg will arrange an out patient EUS. Andriy Mathias MD
[2018-02-13 11:58] VITALS: BP 131/65; PULSE 77; TEMP 36.8; O2SAT 98
[2018-02-13] MEDS ORDERED: APIX1TAB3 PO (12:11)
[2018-02-13] MEDS ORDERED: AMOX875T PO (12:11)
[2018-02-13] MEDS ORDERED: ONDA4TAB10 SL (12:12)
[2018-02-13] MEDS ORDERED: LISI20TA3 PO ×2 (12:12→13:29)
[2018-02-13] MEDS ORDERED: DOCU-94 PO (12:17)
[2018-02-13] MEDS ORDERED: POLY335019 PO (12:20)
[2018-02-13] MEDS ORDERED: DRGTP12 TD (12:20)
[2018-02-13] MEDS ORDERED: RXC5 PO (12:20)
[2018-02-13] MEDS ORDERED: NIFE30TA2 PO (12:20)
--- NOTE | 2018-02-13 12:30 | Discharge Instructions ---
Discharge Instructions Date of Service Feb 13, 2018. Admission Reason for Admission: Acute metabolic encephalopathy, sepsis Discharge Discharge Diagnosis / Problem: Acute metabolic encephalopathy, sepsis likely cholangitis Discharge Goals Goal(s): Improve disease control, Diagnostic testing, Therapeutic intervention Activity Recommendations Activity Limitations: as noted below Exercise/Sports Limitations: gradually increase as tolerated Shower/Bathe: no limitations . Instructions / Follow-Up Instructions / Follow-Up You were admitted with an alteration in your mental status and had severely low blood pressure requiring admission to the intensive care unit. Your liver enzymes were elevated and it was suspected that you may have had an acute infection of the biliary tract versus transient damage to the liver from low blood pressure. He replaced on antibiotics and had multiple imaging studies which showed dilation of the biliary tract in the area of your liver and pancreas. This needs to be followed up closely with gastroenterology as an outpatient with an endoscopic ultrasound (EUS). [facility] gastroenterology should be contacting you to arrange this test. Please finish out the antibiotic course as prescribed. Your blood pressures were severely elevated and you were started on a new blood pressure medication called nifedipine. Please check your blood pressure at least once daily when you return home to make sure the blood pressures are not too high or too low. Your blood thinner was also increased to Eliquis 5 mg twice a day from the previous 2.5 mg twice a day. This dose adjustment is because your weight is higher than than it was previously documented. Please follow-up with your binder cutter as routinely scheduled. Please follow-up with your primary care physician within 1 week after discharge. You should have your liver blood work checked again in 1-2 days with the results sent to both Dr. Redman and Dr. Kellogg. Current Hospital Diet Patient's current hospital diet: AHA Diet (Heart Healthy) Discharge Diet Recommended Diet: AHA Diet (Heart Healthy) Procedures Procedures Performed: CT abdomen/pelvis 2 CT angiogram of the head and neck CT of the head 2 Liver ultrasound Pending Studies Studies pending at discharge: yes List of pending studies: Final blood culture results-drawn 02/09 Autoimmune hepatitis panel Hepatitis A titer Laboratory Results Last 24 Hours Test 02/13/18 05:30 White Blood Count 6.55 K/uL Red Blood Count 3.57 M/uL Hemoglobin 10.8 g/dL Hematocrit 33.5 % Mean Corpuscular Volume 93.8 fL Mean Corpuscular Hemoglobin 30.3 pg Mean Corpuscular Hemoglobin Concent 32.2 g/dl Platelet Count 180 K/uL Mean Platelet Volume 9.4 fL Neutrophils (%) (Auto) 67.7 % Lymphocytes (%) (Auto) 18.5 % Monocytes (%) (Auto) 9.5 % Eosinophils (%) (Auto) 3.5 % Basophils (%) (Auto) 0.3 % Neutrophils # (Auto) 4.44 K/uL Lymphocytes # (Auto) 1.21 K/uL Monocytes # (Auto) 0.62 K/uL Eosinophils # (Auto) 0.23 K/uL Basophils # (Auto) 0.02 K/uL RDW Standard Deviation 47.0 fL RDW Coefficient of Variation 13.7 % Immature Granulocyte % (Auto) 0.5 % Immature Granulocyte # (Auto) 0.03 K/uL Sodium Level 143 mmol/L Potassium Level 3.6 mmol/L Chloride Level 109 mmol/L Carbon Dioxide Level 26 mmol/L Anion Gap 8.0 mmol/L Blood Urea Nitrogen 9 mg/dl Creatinine 0.79 mg/dl Est Creatinine Clear Calc Drug Dose 47.1 ml/min Estimated GFR () 79.1 Estimated GFR (Non- 68.3 BUN/Creatinine Ratio 11.2 Random Glucose 90 mg/dl Calcium Level 8.2 mg/dl Magnesium Level 1.9 mg/dl Total Bilirubin 0.6 mg/dl Direct Bilirubin 0.3 mg/dl Aspartate Amino Transf (AST/SGOT) 108 U/L Alanine Aminotransferase (ALT/SGPT) 182 U/L Alkaline Phosphatase 167 U/L Total Protein 5.5 gm/dl Albumin 2.1 gm/dl Procalcitonin 4.47 ng/ml Medical Emergencies . Who to Call and When: Medical Emergencies: If at any time you feel your situation is an emergency, please call 911 immediately. . Non-Emergent Contact Non-Emergency issues call your: Primary Care Provider Call Non-Emergent contact if: you have a fever, temperature is above 100.5, your pain is not controlled, your pain is worsening, your pain is unusual for you, your pain is concerning you, you have any medication questions . . "Provider Documentation" section prepared by Lili Longoria. . [place] Drug Monitoring Program Search Results: patient reviewed within database, no issues identified
--- NOTE | 2018-02-13 12:35 | Discharge Summary ---
Discharge Summary Date of Service Feb 13, 2018. Discharge Summary Admission Date: Feb 09, 2018 at 15:58 Discharge Date: Feb 13, 2018 Discharge Disposition: Home with services Principal Diagnosis: Acute metabolic encephalopathy, suspected biliary sepsis Problems/Secondary Diagnoses: Elevated LFTs HTN HLD H/o ischemic CVA PAF on Eliquis CAD with h/o [place] s/p stent to LAD in 2006 h/o SVT s/p pacemaker (that is now nonfunctioning) AAA chronic pain syndrome and opioid dependence polyneuropathy asthma GERD rectosigmoid impaction and severe constipation dilated CBD and pancreatic duct history of cholecystectomy CKD stage 3 Hypotension hypertensive urgency Immunizations: Have You Had Influenza Vaccine: Unknown History of Tetanus Vaccine?: Unknown History of Pneumococcal: Unknown History of Hepatitis B Vaccine: Unknown Procedures: EEG CT abdomen/pelvis 2 CT angiogram of the head and neck CT of the head 2 Liver ultrasound Consultations: Gastroenterology Critical care medicine Medication Reconciliation New Medications: Amoxicillin & Pot Clavulanate (Augmentin 875-125 mg) 1 Tab Tab 875 MG PO BID, #12 TAB Apixaban (Eliquis) 5 Mg Tab 5 MG PO BID for 30 Days, #60 TAB Fentanyl (Fentanyl) 12 Mcg Tdsy 12 MCG TD Q72H, #1 BOX 0 Refills Nifedipine (Procardia Xl Ext Rel) 30 Mg Tab 30 MG PO QAM for 30 Days, #30 TAB Oxycodone HCl (Oxycodone HCl) 5 Mg Tab 5 MG PO Q4 PRN for Pain, #10 TAB 0 Refills Changed Medications: Polyethylene Glycol 3350 (Miralax) 1 Pow Pow 17 GM PO BID for 30 Days (Changed from: DAILY; Removed Quantity) Continued Medications: Albuterol Hfa (Ventolin Hfa) 200 Puffs/56174 Mcg Aers 1-2 PUFFS INH Q6H PRN for SOB/Wheezing, #1 INHALER Aspirin (Aspirin 81) 81 Mg Tab 81 MG PO QAM Atorvastatin (Lipitor) 40 Mg Tab 40 MG PO HS, TAB Cholecalciferol (Vitamin D) 1,000 Unit Tab 2000 UNITS PO QAM Docusate Sodium (Colace) 100 Mg Cap 200 MG PO BID for 30 Days, #120 CAP 2 Refills Gabapentin (Neurontin) 100 Mg Cap 200 MG PO TID, CAP Lisinopril (Prinivil) 20 Mg Tab 10 MG PO QAM, TAB Lisinopril (Prinivil) 20 Mg Tab 10 MG PO HS PRN for Hypertension, TAB only uses in evening "if BP is high" Ondasetron Odt (Zofran Odt) 4 Mg Tab 4 MG SL Q6H PRN for nausea, #6 TAB Discontinued Medications: Acetaminophen (Tylenol) 500 Mg Tab 2 TAB PO Q6H PRN for breakthrough pain for 2 Days, #20 TAB 3 Refills Apixaban (Eliquis) 2.5 Mg Tab 2.5 MG PO BID, TAB Fentanyl (Fentanyl) 25 Mcg Tdsy 25 MCG TD Q3D, #10 PATCH Referrals At Discharge Follow up Referrals: [facility] Referral - Within 1-2 Weeks with Fouzia Kellogg, DO Discharge Exam Patient feeling well. She is moving her bowels and tolerating p.o. but does have a mildly low appetite. Blood pressures are much better controlled today. Denies chest pain or shortness of breath, no cough. She remains afebrile. Pro- calcitonin levels continue to decrease, LFTs continue to trend downward. She is out of bed to chair today and feels she is strong enough to go home. Denies lightheadedness. Physical Exam General Appearance: WD/WN, no apparent distress Eyes: normal inspection, sclerae normal ENT: hearing grossly normal Neck: trachea midline Respiratory/Chest: lungs clear, normal breath sounds, no respiratory distress, no accessory muscle use Cardiovascular: regular rate, rhythm, no edema, no gallop, no murmur Abdomen: normal bowel sounds, soft, + tenderness (Diffuse mild tenderness to palpation without guarding or rebound tenderness, no masses) Extremities: non-tender, normal inspection, trace pedal edema, no calf tenderness Neurologic/Psychiatric: alert, normal mood/affect, oriented x 3 Skin: normal color, warm/dry, no rash Review of Systems: Constitutional: No problem reported Eyes: No problem reported ENT: No problem reported Respiratory: No problem reported Cardiovascular: No problem reported Abdomen: No problem reported Musculoskeletal: + problem reported (Chronic lower back pain is improved today) Genitourinary - Female: No problem reported Neurologic: No problem reported Psychiatric: No problem reported Endocrine: No problem reported Hematologic / Lymphatic: No problem reported Integumentary: No problem reported Hospital Course This patient is an 87 y/o female with a history of HTN, HLD, ischemic CVA, PAF on Eliquis, CAD with h/o [place] s[place] stent to LAD in 2006, h/o SVT s/p pacemaker ( that is now nonfunctioning), AAA, chronic pain syndrome and opioid dependence, polyneuropathy, asthma, and GERD who presented with acute encephalopathy, nausea and vomiting, as well as a severe headache and slurred speech. She was transported to the ER via EMS, and stroke alert was called. Neurology evaluated via telemedicine, Dr. Diaz from [facility]. A CT and CTA of the head is negative for any acute findings. She was noted to have significantly elevated LFTs, a severely elevated procalcitonin, and an elevated lactate. The patient also had a CT of the abdomen/pelvis showing known AAA measuring approximately 3.8 cm, rectosigmoid impaction and severe constipation. She was admitted with acute metabolic encephalopathy, severe sepsis with likely GI/biliary tract as the source. Acute metabolic encephalopathy/severe sepsis- NOW resolved. Was likely secondary to sepsis and suspected cholangitis. Pro-calcitonin was severely elevated in the 30s on admission, now decreased down to 4 CT head negative for acute stroke 2. Could not obtain MRI due to old pacer device in place. EEG negative for seizure focus. -Treating with antibiotics for GI/biliary tract source of sepsis-finish out 10 day course of Augmentin -Follow blood cultures-no growth to date Abnormal LFTs/suspected cholangitis-continue to improve today. On admission, had T bili elevated at 1.4 with elevated direct bilirubin of 1.0, AST in the 600s, ALT in the 300s, alkaline phosphatase in the 250s all on admission and continue to trend downward but not normal yet CT abdomen/pelvis with significantly dilated CBD and pancreatic duct, has history of cholecystectomy The abnormal LFTs coupled with leukocytosis and high procalcitonin level at admission gave some concern for cholangitis or a passed retained gallstone but unable to prove such. Appreciate GI consultation who recommends 10 days of PO abx after d/c to cover the biliary tree. Unfortunately MRCP cannot be obtained because of old pacer device in place. Received Zosyn for 4 days and dc to home on po AUgmentin as above Blood cx's thus far negative. -Repeat LFTs in 2 days as outpt. -Plan - outpatient EUS after discharge. -Hepatitis viral panel and autoimmune studies pending at time of discharge CKD stage 3 - creatinine at baseline -Renally dose medications -Avoid nephrotoxins Hypotension - resolved. Critical care team thinks this could have been a vagal event. Either way it is resolved. HTN -severely uncontrolled and has previous admissions for hypertensive urgency as well. Could some of the spike in BP from narcotic withdrawal and/or her back pain itself. Ibuprofen could also be contributing Now much improved with addition of Nifedipine -Discontinued ibuprofen -Continue lisinopril 10mg BID. -Added nifedipine 30 mg extended release daily -It appears she used to be on beta-blockers but is not any longer possibly due to mention of bradycardia on previous admissions H/o stroke, presumably embolic from a. fib - continue eliquis for secondary stroke prevention but her weight here is greater than 60 kg and creatinine is normal-I increased her Eliquis to 5 mg twice a day. CAD, s/p stent 2006 - no evidence of ACS. PAF - remains in NSR at this time. -Increased Eliquis to 5 mg twice a day as above Severe fecal impaction - resolved. Needs bowel maintenance. -Continue senna, miralax BID, and colace BID ordered. -Could consider movantik in light of chronic narcotic usage. AAA - abdominal CT with stable size of AAA. Chronic pain syndrome/opioid dependence/chronic lower back pain-improved after restarting fentanyl patch She has been on fentanyl patch for nearly 3 years. Abrupt termination of such will lead to narcotic withdrawal and likely terrible back pain. I do not suspect her presenting altered MS was due to narcotics either. -Continue oxycodone 5 mg p.o. every 4 hours as needed for breakthrough pain Asthma - w/o exacerbation. Peripheral edema -resolved after Lasix 20mg PO 1 given Prophylaxis-Eliquis Disposition-PT/OT evaluation recommends return home with home health and this is the patient's choice-she has 24-hour care with her daughter living with her who is quitting her job supposedly-stable for dc to home today Total Time Spent: Greater than 30 minutes This includes examination of the patient, discharge planning, medication reconciliation, and communication with other providers. Discharge Instructions Please refer to the electronic Patient Visit Report (Discharge Instructions) for additional information. Follow-Up With PCP within 1 week With gastroenterology for EUS within 1-2 weeks Repeat LFTs in 1-2 days Additional Copies To Fouzia Kellogg DO; Alexei Redman M.D.
[2018-02-13 12:37] VITALS: BP 131/65; PULSE 77; TEMP 36.8; O2SAT 98
[2018-02-13] MEDS ORDERED: VNTHFA/IN INH (19:31)
[2018-02-13] MEDS ORDERED: CHOL100010 PO (19:31)
[2018-02-13] MEDS ORDERED: ASPI-435 PO (19:31)
[2018-02-13] MEDS ORDERED: GABA-112 PO (20:02)
[2018-02-13] MEDS ORDERED: LPT/40 PO (20:13)
[2018-02-14] MEDS ORDERED: FENTANYL PATCH REMOVE & WASTE SCH (12:29)
[2018-02-15 13:27] LABS: ANA SCREEN TC 249X NEGATIVE (NEGATIVE); HEPATITIS A IGM TC 51813E NON-REACTIVE (NON-REACTIVE); HEPATITIS B CORE IGM TC51854R NON-REACTIVE (NON-REACTIVE)
== END 2018-02-13 16:30 | disposition home health service (06) | DRG 871 ==
LOC: EDBD 11:15 → C.EDB 11:17 → C.EDINP 15:58 → EDBEDREQSVC 16:33 → EDBEDREQTM 16:33 → ENRESERV 19:20 → C.MSICU 19:51 → C.4E 02-10 11:15 → CANBEDREQ 02-10 11:31 → ENRESERV 02-10 12:55
PROVIDERS: ADMIT Family Medicine; ATTEND Family Medicine
DX: A41.9 Sepsis, unspecified organism (principal); G93.41 Metabolic encephalopathy; K83.0 Cholangitis; F11.20 Opioid dependence, uncomplicated; I48.0 Paroxysmal atrial fibrillation; I12.9 Hypertensive chronic kidney disease with stage 1 through stage 4 chronic kidney disease, or unspecified chronic kidney disease; N18.3 Chronic kidney disease, stage 3 (moderate); E78.5 Hyperlipidemia, unspecified; K59.00 Constipation, unspecified; G89.29 Other chronic pain; K21.9 Gastro-esophageal reflux disease without esophagitis; G62.9 Polyneuropathy, unspecified; I25.2 Old myocardial infarction; I71.4 Abdominal aortic aneurysm, without rupture; J45.909 Unspecified asthma, uncomplicated; R60.0 Localized edema; Z66 Do not resuscitate; Z79.01 Long term (current) use of anticoagulants; Z79.82 Long term (current) use of aspirin; Z79.899 Other long term (current) drug therapy; Z86.73 Personal history of transient ischemic attack (TIA), and cerebral infarction without residual deficits; Z87.891 Personal history of nicotine dependence; Z88.8 Allergy status to other drugs, medicaments and biological substances; Z95.5 Presence of coronary angioplasty implant and graft; Z95.0 Presence of cardiac pacemaker

== ENCOUNTER 2018-02-13 20:49 | Observation (INO) | payer BC, OTHER ==
[~2018-02-13] VITALS: Ht 157.5 cm; Wt 66.7 kg
[~2018-02-13 20:49] MED LIST changes: -AMIO200T4 PO; +AMOX875T PO; -ANT25 PO; +APIX1TAB PO; +APIX1TAB3 PO; +ASPI-435 PO; +CHOL100010 PO; +DOCU-94 PO; -DOCU100C31 PO; +DRGTP12 TD; -FLUMAZENIL 0.1 MG/1 ML 10 ML VIAL IV ONE; +GABA-112 PO; +LISI20TA3 PO; +LPT/40 PO; -METO25TA4 PO; -NALOXONE HCL INJ 0.4 MG/1 ML VIAL/CARP IV ONE; +NIFE30TA2 PO; +ONDA4TAB10 SL; -ONDA4TAB46 PO; +RXC5 PO; -SODIUM CHLORIDE 0.9% 10ML FLUSH IV ONE; +VNTHFA/IN INH; -ZOLE5INJ INJ
[2018-02-13] MEDS ORDERED: DILTIAZEM BOLUS / DRIP IV STA (21:46)
--- NOTE | 2018-02-13 21:54 | EMERGENCY ROOM VISIT NOTE ---
History Report prepared by Felisa: Lizzie Tavarez Under the Supervision of: Dr. Juan Aly M.D. First contact with patient: 21:34 Chief Complaint: EDEMA TO EXTREMITY Stated Complaint: LEG & AB SWELLING, SOB History of Present Illness The patient is a 87 year old female who presents to the Emergency Room with complaints of constant bilateral lower extremity edema beginning shortly prior to arrival. Per family, the patient's legs have been so swollen that she has been unable to walk. The patient denies feeling shortness of breath. She states that she has had atrial fibrillation once years ago. The patient states that her medications were changed upon discharge. Per family, the patient went to rehabilitation at [facility] 2 weeks ago but wanted to come home. The patient was discharged from the hospital 5 hours ago. The patient is on Augmentin, Eliquis, nifedipine, and oxycodone--these are the new or changed meds from her hospitalization. Her fentanyl patch was cut from 25 to 12. Source of History: patient, family Onset: shortly prior to arrival Position: leg (bilateral) Quality: other (edema) Timing: constant Associated Symptoms: No SOB Review of Systems See HPI for pertinent positives & negatives. A total of 10 systems reviewed and were otherwise negative. 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 (8) Chest pain (9) Chest pain at rest (10) Chronic arthralgias of knees and hips (11) ESOPHAGEAL REFLUX (12) HYPERLIPIDEMIA NEC/NOS (13) HYPERTENSION NOS (14) Intractable back pain (15) Nausea and vomiting (16) OLD MYOCARDIAL INFARCT (17) PERIPH VASCULAR DIS NOS (18) Severe hypertension (19) Thoracic spinal stenosis Surgical Problems: (1) S/P laminectomy Family History Cancer (breast, uterine) Myocardial infarction Parkinson's disease Social History Smoking Status: Never Smoker Alcohol Use: none Drug Use: none Marital Status: single Housing Status: lives with family Occupation Status: retired Current/Historical Medications Scheduled Amoxicillin & Pot Clavulanate (Augmentin 875-125 mg), 875 MG PO BID Apixaban (Eliquis), 5 MG PO BID Aspirin (Aspirin 81), 81 MG PO QAM Atorvastatin (Lipitor), 40 MG PO HS Cholecalciferol (Vitamin D), 2,000 INTER.UNIT PO QAM Docusate Sodium (Colace), 200 MG PO BID Fentanyl (Fentanyl), 12 MCG TD Q72H Gabapentin (Neurontin), 200 MG PO TID Lisinopril (Prinivil), 10 MG PO QAM Nifedipine (Procardia Xl Ext Rel), 30 MG PO QAM Polyethylene Glycol 3350 (Miralax), 17 GM PO BID Scheduled PRN Albuterol Hfa (Ventolin Hfa), 1-2 PUFFS INH Q6H PRN for SOB/Wheezing Lisinopril (Prinivil), 10 MG PO HS PRN for Hypertension Ondasetron Odt (Zofran Odt), 4 MG SL Q6H PRN for Nausea Oxycodone HCl (Oxycodone HCl), 5 MG PO Q4 PRN for Pain Allergies Coded Allergies: Adenosine (Verified Allergy, Unknown, "pt not sure had it in er years ago ", 01/06/18) Physical Exam Vital Signs Date Time Temp Pulse Resp B/P (MAP) Pulse Ox O2 Delivery O2 Flow Rate FiO2 02/14/18 00:13 80 14 181/76 96 Room Air 02/13/18 23:05 170/76 02/13/18 23:01 84 23 193/88 96 Room Air 02/13/18 22:50 85 02/13/18 22:00 95 Room Air 02/13/18 21:18 107 02/13/18 21:08 36.6 112 22 133/84 97 Room Air Physical Exam GENERAL: Patient is in no acute distress. HEENT: No acute trauma, normocephalic atraumatic, mucous membranes moist, no nasal congestion, no scleral icterus. NECK: No stridor, no adenopathy, no meningismus, trachea is midline. LUNGS: Clear to auscultation bilaterally, no wheeze, no rhonchi, breath sounds equal. HEART: Tachycardic but regular rhythm. No murmurs. ABDOMEN: Soft, nontender, bowel sounds positive, no hernias, no peritonitis. EXTREMITIES: No cyanosis, full range of motion of all the joints without pain or difficulty, no signs for acute trauma. Moderate bilateral pedal edema worse on the right. NEUROLOGIC: Oriented x 3, no acute motor or sensory deficits, no focal weakness. SKIN: No rash, no jaundice, no diaphoresis. Medical Decision & Procedures ER Provider Diagnostic Interpretation: Radiology results as stated below per my review and radiologist interpretation: CHEST ONE VIEW PORTABLE CLINICAL HISTORY: Altered mental status. Weakness. Leg swelling. Shortness of breath. COMPARISON STUDY: 02/09/2018 FINDINGS: A right subclavian pacemaker is again evident. The single lead projects over the atrium. The heart is mildly enlarged. There is no failure. There is no lobar consolidation. There is calcification within the mitral valve annulus. There are coronary artery calcifications. There is blunting of the left lateral costophrenic angle suggesting a small left pleural effusion. Advanced arthritic changes are present within the shoulders.[ IMPRESSION: 1. Mild cardiomegaly 2. Trace left pleural effusion 3. No evidence of focal pulmonary consolidation Electronically signed by: Lorne Go M.D. 02/13/2018 11:01 PM Dictated Date/Time: 02/13/2018 11:00 PM Radiology results as stated below per my review and [employer]. US VENOUS BILATERAL LOWER EXTREMITIES: No deep venous thrombosis identified in either lower extremity. Laboratory Results 02/13/18 22:33 Red Blood Count 3.77, Mean Corpuscular Volume 93.6, Mean Corpuscular Hemoglobin 30.8, Mean Corpuscular Hemoglobin Concent 32.9, Mean Platelet Volume 9.5, Neutrophils (%) (Auto) 66.9, Lymphocytes (%) (Auto) 20.3, Monocytes (%) (Auto) 9.5, Eosinophils (%) (Auto) 2.4, Basophils (%) (Auto) 0.4, Neutrophils # (Auto) 4.98, Lymphocytes # (Auto) 1.51, Monocytes # (Auto) 0.71, Eosinophils # (Auto) 0.18, Basophils # (Auto) 0.03 02/13/18 22:33 Test 02/13/18 21:05 02/13/18 22:33 Urine Color YELLOW Urine Appearance TURBID (CLEAR) Urine pH 7.5 (4.5-7.5) Urine Specific Towner 1.008 (1.000-1.030) Urine Protein NEG (NEG) Urine Glucose (UA) NEG (NEG) Urine Ketones NEG (NEG) Urine Occult Blood NEG (NEG) Urine Nitrite NEG (NEG) Urine Bilirubin NEG (NEG) Urine Urobilinogen NEG (NEG) Urine Leukocyte Esterase TRACE (NEG) Urine WBC (Auto) 1-5 /hpf (0-5) Urine RBC (Auto) 0-4 /hpf (0-4) Urine Hyaline Casts (Auto) 0 /lpf (0-5) Urine Epithelial Cells (Auto) >30 /lpf (0-5) Urine Bacteria (Auto) NEG (NEG) White Blood Count 7.45 K/uL (4.8-10.8) Red Blood Count 3.77 M/uL (4.2-5.4) Hemoglobin 11.6 g/dL (12.0-16.0) Hematocrit 35.3 % (37-47) Mean Corpuscular Volume 93.6 fL (80-100) Mean Corpuscular Hemoglobin 30.8 pg (25-34) Mean Corpuscular Hemoglobin Concent 32.9 g/dl (32-36) Platelet Count 221 K/uL (130-400) Mean Platelet Volume 9.5 fL (7.4-10.4) Neutrophils (%) (Auto) 66.9 % Lymphocytes (%) (Auto) 20.3 % Monocytes (%) (Auto) 9.5 % Eosinophils (%) (Auto) 2.4 % Basophils (%) (Auto) 0.4 % Neutrophils # (Auto) 4.98 K/uL (1.4-6.5) Lymphocytes # (Auto) 1.51 K/uL (1.2-3.4) Monocytes # (Auto) 0.71 K/uL (0.11-0.59) Eosinophils # (Auto) 0.18 K/uL (0-0.5) Basophils # (Auto) 0.03 K/uL (0-0.2) RDW Standard Deviation 47.0 fL (36.4-46.3) RDW Coefficient of Variation 13.8 % (11.5-14.5) Immature Granulocyte % (Auto) 0.5 % Immature Granulocyte # (Auto) 0.04 K/uL (0.00-0.02) Prothrombin Time 10.3 SECONDS (9.0-12.0) Prothromb Time International Ratio 1.0 (0.9-1.1) Activated Partial Thromboplast Time 23.2 SECONDS (21.0-31.0) Partial Thromboplastin Ratio 0.9 Anion Gap 7.0 mmol/L (3-11) Est Creatinine Clear Calc Drug Dose 42.7 ml/min Estimated GFR () 70.4 Estimated GFR (Non- 60.7 BUN/Creatinine Ratio 13.2 (10-20) Calcium Level 8.5 mg/dl (8.5-10.1) Magnesium Level 2.0 mg/dl (1.8-2.4) Total Bilirubin 0.4 mg/dl (0.2-1) Aspartate Amino Transf (AST/SGOT) 79 U/L (15-37) Alanine Aminotransferase (ALT/SGPT) 173 U/L (12-78) Alkaline Phosphatase 193 U/L (45-117) Total Creatine Kinase 51 U/L (26-192) Troponin I 0.450 ng/ml (0-0.045) Total Protein 6.4 gm/dl (6.4-8.2) Albumin 2.7 gm/dl (3.4-5.0) Globulin 3.7 gm/dl (2.5-4.0) Albumin/Globulin Ratio 0.7 (0.9-2) Thyroid Stimulating Hormone (TSH) 2.110 uIu/ml (0.300-4.500) Laboratory results reviewed by me. ECG Per My Interpretation Indication: weakness Rate (beats per minute): 115 Rhythm: atrial fibrillation Findings: other (diffuse nonspecific ST change, no PVCs, no ST elevation) Comparison ECG Date: afib is new compared to previous Change: repeat ECG: similar findings third ECG: normal sinus rhythm, rate of 88, non-specific ST change, no PVCs, no ST elevation ED Course 2139: The patient was evaluated in room C4B. A complete history and physical exam was performed. 2340: Upon reexamination the patient is resting. I discussed results and treatment plan with the patient. She verbalizes agreement and understanding. I spoke with Dr. Sweet of the [facility]. We discussed the patient's results and findings. The patient will be evaluated for further management. 0000: Discussed the patient's case with Dr. Brown. The patient will be evaluated for further management. Medical Decision The patient is a 87 year old female who presents to the ED with complaints of bilateral leg swelling. Differential diagnoses considered include fluid overload, electrolyte imbalance, anemia, dysrhythmia, atrial fibrillation or atrial flutter, DVT, debilitation, and CHF. There is no leukocytosis or concerning anemia. No significant electrolyte abnormality, kidney failure or hepatitis. There is no coagulopathy. Patient appears to be in a euthyroid state. EKG shows a rapid A. fib with some diffuse nonspecific ST change. The A. fib finding is new compared to previous EKGs. A second EKG showed the same findings. Third EKG showed conversion to a normal sinus rhythm, no acute ischemia. Chest x-ray does not show CHF or pneumonia. Bilateral lower extremity ultrasound does not show evidence for DVT. Urinalysis does not show infection. Cardiac enzyme testing 1 is elevated, this is consistent/concerning for cardiac injury or strain. The patient was originally ordered for a diltiazem bolus and drip however, this was canceled as the patient spontaneously converted to a sinus rhythm. She has been maintaining sinus rhythm ever since. The patient cannot walk, she is quite fluid overloaded in her extremities. She presented in rapid A. fib and now has an elevation to her cardiac troponin. A hospital stay is warranted. I spoke to the patient and case management. I discussed the case with the on-call hospitalist. Medication Reconcilliation Current Medication List: was personally reviewed by me Blood Pressure Screening Patient's blood pressure: Elevated blood pressure will be monitored by hospitalist Consults Time Called: 2300 Consulting Physician: Dr. Lelo Baez Returned Call: [phone] Discussed the patient's case. The patient will be evaluated for further management. Additional Consults: Time Called: 0000 Consulted Physician: Dr. Alexia Baez Returned Call: 0000 Additional Comments: Discussed the patient's case. The patient will be evaluated for further management. Impression Primary Impression: Fluid overload Additional Impressions: Pedal edema Rapid atrial fibrillation Elevated troponin Scribe Attestation The scribe's documentation has been prepared under my direction and personally reviewed by me in its entirety. I confirm that the note above accurately reflects all work, treatment, procedures, and medical decision making performed by me. Departure Information Dispostion Being Evaluated By Alexei Chavez M.D. (PCP) Patient Instructions My [facility] Problem Qualifiers
[2018-02-13] MEDS ORDERED: DILTIAZEM BOLUS FROM BAG IV ONE (22:00)
[2018-02-13] MEDS ORDERED: DILTIAZEM HCL INJ 125 MG in DEXTROSE 5% 100ML IV PRN (22:00)
[2018-02-13 22:47] LABS: BASO % 0.4 %; BASO ABS # 0.03 K/uL (0-0.2); EOS % 2.4 %; EOS ABS # 0.18 K/uL (0-0.5); HEMATOCRIT 35.3 % (37-47); HEMOGLOBIN 11.6 g/dL (12.0-16.0); IG# 0.04 K/uL (0.00-0.02); LYMPH % 20.3 %; LYMPH ABS # 1.51 K/uL (1.2-3.4); MEAN CELL VOLUME 93.6 fL (80-100); MEAN CORPUSCULAR HEMOGLOBIN 30.8 pg (25-34); MEAN CORPUSCULAR HGB CONC 32.9 g/dl (32-36); MEAN PLATELET VOLUME 9.5 fL (7.4-10.4); MONO % 9.5 %; MONO ABS # 0.71 K/uL (0.11-0.59); NEUT % 66.9 %; NEUT ABS # 4.98 K/uL (1.4-6.5); PLATELET COUNT 221 K/uL (130-400); RED CELL DISTRIBUTION WIDTH CV 13.8 % (11.5-14.5); WHITE BLOOD COUNT 7.45 K/uL (4.8-10.8)
--- NOTE | 2018-02-13 23:02 | DIAGNOSTIC IMAGING REPORT ---
CHEST ONE VIEW PORTABLE CLINICAL HISTORY: Altered mental status. Weakness. Leg swelling. Shortness of breath. COMPARISON STUDY: 02/09/2018 FINDINGS: A right subclavian pacemaker is again evident. The single lead projects over the atrium. The heart is mildly enlarged. There is no failure. There is no lobar consolidation. There is calcification within the mitral valve annulus. There are coronary artery calcifications. There is blunting of the left lateral costophrenic angle suggesting a small left pleural effusion. Advanced arthritic changes are present within the shoulders.[ IMPRESSION: 1. Mild cardiomegaly 2. Trace left pleural effusion 3. No evidence of focal pulmonary consolidation Electronically signed by: Lorne Go M.D. 02/13/2018 11:01 PM Dictated Date/Time: 02/13/2018 11:00 PM
[2018-02-13 23:06] LABS: ALBUMIN 2.7 gm/dl (3.4-5.0); CALCIUM 8.5 mg/dl (8.5-10.1); CREATININE 0.87 mg/dl (0.60-1.20); POTASSIUM 3.5 mmol/L (3.5-5.1); PTT PATIENT 23.2 SECONDS (21.0-31.0)
[2018-02-13 23:22] LABS: TOTAL PROTEIN 6.4 gm/dl (6.4-8.2)
[2018-02-14] VITALS (9 sets, daily range): BP systolic 84–199; BP diastolic 47–92; PULSE 70–134; TEMP 36.7–37.3; O2SAT 81–96; Ht 157.5 cm; Wt 66.7 kg
--- NOTE | 2018-02-14 01:56 | History and Physical ---
History & Physical Date & Time of Service: Feb 14, 2018 at 01:56 Chief Complaint: Leg & Ab Swelling, Sob Primary Care Physician: Alexei Redman M.D. History of Present Illness Source: patient, hospital records 87 y/o F with pMHx of HTN, HLD, ischemic CVA, PAF on Eliquis, CAD with h/o [place] s/ p stent to LAD in 2006, h/o SVT s/p pacemaker (that is now nonfunctioning), AAA , chronic pain syndrome and opioid dependence, polyneuropathy, asthma, and GERD who presented 5 hours after discharge from hospital with significantly worsened bilateral lower leg edema. Patient is unable to walk significantly at baseline, but was able to pivot and transition in and out of wheelchair. However, since returning home, she is unable to do even this and feels extremely weak, with complaints of swelling reaching her abdomen. The patient denies feeling shortness of breath. Patient attributes symptoms to the new/changed meds from her hospitalization: Augmentin, Eliquis, nifedipine, and oxycodone, fentanyl patch (dose was reduced). In the ER, patient was found to be in atrial fibrillation (she has had 1 episode in the past but was symptomatic that time). However, prior to initiating treatment, she reverted to NSR. Labs revealed an elevated troponin and low albumin. Past Medical/Surgical History Elevated LFTs HTN HLD H/o ischemic CVA PAF on Eliquis CAD with h/o [place] s/p stent to LAD in 2006 h/o SVT s/p pacemaker (that is now nonfunctioning) AAA chronic pain syndrome and opioid dependence polyneuropathy asthma GERD rectosigmoid impaction and severe constipation dilated CBD and pancreatic duct history of cholecystectomy CKD stage 3 Hypotension Hypertensive urgency Family History Cancer (breast, uterine) Myocardial infarction Parkinson's disease Social History Smoking Status: Never Smoker Smokeless Tobacco Use: No Alcohol Use: none Drug Use: none Marital Status: single Housing status: lives with family Occupational Status: retired Immunizations History of Influenza Vaccine: Unknown History of Tetanus Vaccine?: Unknown History of Pneumococcal: Unknown History of Hepatitis B Vaccine: Unknown Allergies Coded Allergies: Adenosine (Verified Allergy, Unknown, "pt not sure had it in er years ago ", 01/06/18) Home Medications Scheduled Amoxicillin & Pot Clavulanate (Augmentin 875-125 mg), 875 MG PO BID Apixaban (Eliquis), 5 MG PO BID Aspirin (Aspirin 81), 81 MG PO QAM Atorvastatin (Lipitor), 40 MG PO HS Cholecalciferol (Vitamin D), 2,000 INTER.UNIT PO QAM Docusate Sodium (Colace), 200 MG PO BID Fentanyl (Fentanyl), 12 MCG TD Q72H Gabapentin (Neurontin), 200 MG PO TID Lisinopril (Prinivil), 10 MG PO QAM Nifedipine (Procardia Xl Ext Rel), 30 MG PO QAM Polyethylene Glycol 3350 (Miralax), 17 GM PO BID Scheduled PRN Albuterol Hfa (Ventolin Hfa), 1-2 PUFFS INH Q6H PRN for SOB/Wheezing Lisinopril (Prinivil), 10 MG PO HS PRN for Hypertension Ondasetron Odt (Zofran Odt), 4 MG SL Q6H PRN for Nausea Oxycodone HCl (Oxycodone HCl), 5 MG PO Q4 PRN for Pain Physical Exam Vital Signs Date Time Temp Pulse Resp B/P (MAP) Pulse Ox O2 Delivery O2 Flow Rate FiO2 02/14/18 01:09 85 16 172/103 96 Room Air 02/14/18 00:13 80 14 181/76 96 Room Air 02/13/18 23:05 170/76 02/13/18 23:01 84 23 193/88 96 Room Air 02/13/18 22:50 85 02/13/18 22:00 95 Room Air 02/13/18 21:18 107 02/13/18 21:08 36.6 112 22 133/84 97 Room Air General Appearance: WD/WN, no apparent distress Head: normocephalic, atraumatic Eyes: normal inspection ENT: hearing grossly normal Neck: supple Respiratory/Chest: normal breath sounds, no respiratory distress, no accessory muscle use Cardiovascular: regular rate, rhythm Abdomen/GI: normal bowel sounds, non tender, soft Extremities/Musculoskelatal: no calf tenderness, + pedal edema, + swelling Neurologic/Psych: alert, normal mood/affect, oriented x 3 Skin: normal color, warm/dry, no rash Diagnostics Laboratory Results Results Past 24 Hours Test 02/13/18 21:05 02/13/18 22:33 Range/Units Urine Color YELLOW Urine Appearance TURBID CLEAR Urine pH 7.5 4.5-7.5 Urine Specific [place] 1.008 1.000-1.030 Urine Protein NEG NEG Urine Glucose (UA) NEG NEG Urine Ketones NEG NEG Urine Occult Blood NEG NEG Urine Nitrite NEG NEG Urine Bilirubin NEG NEG Urine Urobilinogen NEG NEG Urine Leukocyte Esterase TRACE NEG Urine WBC (Auto) 1-5 0-5 /hpf Urine RBC (Auto) 0-4 0-4 /hpf Urine Hyaline Casts (Auto) 0 0-5 /lpf Urine Epithelial Cells (Auto) >30 0-5 /lpf Urine Bacteria (Auto) NEG NEG White Blood Count 7.45 4.8-10.8 K/uL Red Blood Count 3.77 4.2-5.4 M/uL Hemoglobin 11.6 12.0-16.0 g/dL Hematocrit 35.3 37-47 % Mean Corpuscular Volume 93.6 80-100 fL Mean Corpuscular Hemoglobin 30.8 25-34 pg Mean Corpuscular Hemoglobin Concent 32.9 32-36 g/dl Platelet Count 221 130-400 K/uL Mean Platelet Volume 9.5 7.4-10.4 fL Neutrophils (%) (Auto) 66.9 % Lymphocytes (%) (Auto) 20.3 % Monocytes (%) (Auto) 9.5 % Eosinophils (%) (Auto) 2.4 % Basophils (%) (Auto) 0.4 % Neutrophils # (Auto) 4.98 1.4-6.5 K/uL Lymphocytes # (Auto) 1.51 1.2-3.4 K/uL Monocytes # (Auto) 0.71 0.11-0.59 K/uL Eosinophils # (Auto) 0.18 0-0.5 K/uL Basophils # (Auto) 0.03 0-0.2 K/uL RDW Standard Deviation 47.0 36.4-46.3 fL RDW Coefficient of Variation 13.8 11.5-14.5 % Immature Granulocyte % (Auto) 0.5 % Immature Granulocyte # (Auto) 0.04 0.00-0.02 K/uL Prothrombin Time 10.3 9.0-12.0 SECONDS Prothromb Time International Ratio 1.0 0.9-1.1 Activated Partial Thromboplast Time 23.2 21.0-31.0 SECONDS Partial Thromboplastin Ratio 0.9 Sodium Level 144 136-145 mmol/L Potassium Level 3.5 3.5-5.1 mmol/L Chloride Level 111 98-107 mmol/L Carbon Dioxide Level 26 21-32 mmol/L Anion Gap 7.0 3-11 mmol/L Blood Urea Nitrogen 12 7-18 mg/dl Creatinine 0.87 0.60-1.20 mg/dl Est Creatinine Clear Calc Drug Dose 42.7 ml/min Estimated GFR () 70.4 Estimated GFR (Non- 60.7 BUN/Creatinine Ratio 13.2 10-20 Random Glucose 90 70-99 mg/dl Calcium Level 8.5 8.5-10.1 mg/dl Magnesium Level 2.0 1.8-2.4 mg/dl Total Bilirubin 0.4 0.2-1 mg/dl Aspartate Amino Transf (AST/SGOT) 79 15-37 U/L Alanine Aminotransferase (ALT/SGPT) 173 12-78 U/L Alkaline Phosphatase 193 45-117 U/L Total Creatine Kinase 51 26-192 U/L Troponin I 0.450 0-0.045 ng/ml Total Protein 6.4 6.4-8.2 gm/dl Albumin 2.7 3.4-5.0 gm/dl Globulin 3.7 2.5-4.0 gm/dl Albumin/Globulin Ratio 0.7 0.9-2 Thyroid Stimulating Hormone (TSH) 2.110 0.300-4.500 uIu/ml Diagnostic Radiology CHEST ONE VIEW PORTABLE CLINICAL HISTORY: Altered mental status. Weakness. Leg swelling. Shortness of breath. COMPARISON STUDY: 02/09/2018 FINDINGS: A right subclavian pacemaker is again evident. The single lead projects over the atrium. The heart is mildly enlarged. There is no failure. There is no lobar consolidation. There is calcification within the mitral valve annulus. There are coronary artery calcifications. There is blunting of the left lateral costophrenic angle suggesting a small left pleural effusion. Advanced arthritic changes are present within the shoulders.[ IMPRESSION: 1. Mild cardiomegaly 2. Trace left pleural effusion 3. No evidence of focal pulmonary consolidation Impression Assessment and Plan 87 y/o F with pMHx of HTN, HLD, ischemic CVA, PAF on Eliquis, CAD with h/o [place] s/ p stent to LAD in 2006, h/o SVT s/p pacemaker (that is now nonfunctioning), AAA , chronic pain syndrome and opioid dependence, polyneuropathy, asthma, and GERD who presented 5 hours after discharge from hospital with significantly worsened bilateral lower leg edema. Patient is unable to walk significantly at baseline, but was able to pivot and transition in and out of wheelchair. However, since returning home, she is unable to do even this and feels extremely weak, with complaints of swelling reaching her abdomen. The patient denies feeling shortness of breath. Patient attributes symptoms to the new/changed meds from her hospitalization: Augmentin, Eliquis, nifedipine, and oxycodone, fentanyl patch (dose was reduced). In the ER, patient was found to be in atrial fibrillation (she has had 1 episode in the past but was symptomatic that time). However, prior to initiating treatment, she reverted to NSR. Labs revealed an elevated troponin and low albumin. Bilateral lower extremity edema - Stop nifedipine - Diuresis with IV furosemide 40mg Elevated troponing with CAD, s/p stent 2006 - no evidence of ACS - Serial troponin - EKG prn CP - Continue aspirin HTN -severely uncontrolled and has previous admissions for hypertensive urgency as well. - Discontinue nifedipine - Continue lisinopril - Furosemide added A.fib - Noted in ER, spontaneously converted to NSR - Patient not on beta tadeo but anticoagulated with Eliquis - Potassium 3.5, supplemented, trend BMP CKD stage 3 - creatinine at baseline - Renally dose medications - Avoid nephrotoxins H/o stroke, presumably embolic from a. fib - Continue eliquis for secondary stroke prevention but her weight here is greater than 60 kg and creatinine is normal- thus Eliquis administered 5mg BID Chronic pain syndrome/opioid dependence/chronic lower back pain - Continue home meds oxycodone, fentanyl patch and gabapentin Asthma - w/o exacerbation. - Continue albuterol PRN Prophylaxis - Eliquis - SCDs FULL CODE Attending addendum: I have physically seen this patient, have supervised the medical residents activities, and agree with the H&P unless as otherwise noted. Assessment and Plan: Worsening ambulatory dysfunction/generalized weakness/lower extremity edema-- Stop nifedipine. Give Lasix 40 mg IV 1. CAD/hypertension/paroxysmal atrial fibrillation/very volatile blood pressure and heart rate-- Stop nifedipine as noted above and continue Lasix. The patient will be admitted to telemetry for serial cardiac enzymes, serial EKG's, and cardiac rhythm monitoring. CVA history-- Continue Eliquis. Resuscitation Status Full code VTE Prophylaxis Will order VTE Prophylaxis: Yes Resident Tracking Resident Involvement: Resident Care Provided Care Provided: Adult Hospital Medicine
[2018-02-14] MEDS ORDERED: ONDANSETRON 4MG OD TAB SL PRN (02:15)
[2018-02-14] MEDS ORDERED: LISINOPRIL 10 MG TAB PO PRN (02:15)
[2018-02-14] MEDS ORDERED: OXYCODONE HCL IR 5 MG TAB (IMMEDIATE RELEASE) PO PRN (02:15)
[2018-02-14] MEDS ORDERED: MAGNESIUM HYDROXIDE SUSP 30 ML UDC PO PRN (02:15)
[2018-02-14] MEDS ORDERED: ONDANSETRON INJ 2 MG/ML 2 ML VIAL IV PRN (02:15)
[2018-02-14] MEDS ORDERED: ACETAMINOPHEN 325 MG TAB PO PRN (02:15)
[2018-02-14] MEDS ORDERED: NITROGLYCERIN 0.4 MG SL PER TAB CHARGE SL PRN (02:15)
[2018-02-14] MEDS ORDERED: POLYETHYLENE (MIRALAX) 17 GM PACK PO PRN (02:15)
[2018-02-14] MEDS ORDERED: ALUMINUM/MAGNESIUM/SIMETH (MAALOX MAX) 30 ML UDC PO PRN (02:15)
[2018-02-14] MEDS ORDERED: ALBUTEROL HFA 8 GM INHALER INH PRN (02:15)
[2018-02-14] MEDS ORDERED: FENTANYL 12 MCG/HR TDSY TD SCH ×2 (02:15→16:00)
[2018-02-14] MEDS ORDERED: IV FLUIDS COMPLETED PRN (03:15)
[2018-02-14 05:06] LABS: HEMATOCRIT 36.7 % (37-47); HEMOGLOBIN 11.7 g/dL (12.0-16.0); MEAN CELL VOLUME 93.9 fL (80-100); MEAN CORPUSCULAR HEMOGLOBIN 29.9 pg (25-34); MEAN CORPUSCULAR HGB CONC 31.9 g/dl (32-36); MEAN PLATELET VOLUME 9.7 fL (7.4-10.4); PLATELET COUNT 215 K/uL (130-400); RED CELL DISTRIBUTION WIDTH CV 13.9 % (11.5-14.5); RED CELL DISTRIBUTION WIDTH SD 47.6 fL (36.4-46.3); WHITE BLOOD COUNT 7.33 K/uL (4.8-10.8)
[2018-02-14 05:30] LABS: CALCIUM 8.5 mg/dl (8.5-10.1); CREATININE 0.71 mg/dl (0.60-1.20); POTASSIUM 3.6 mmol/L (3.5-5.1)
[2018-02-14] MEDS ORDERED: POTASSIUM CHLORIDE 20 MEQ TABCR PO STA (06:18)
--- NOTE | 2018-02-14 06:45 | DIAGNOSTIC IMAGING REPORT ---
VENOUS DOPPLER LWR EXT BILA HISTORY: Pain. Edema. swelling COMPARISON STUDY: None. FINDINGS: There is normal compressibility, flow, and augmentation within the bilateral lower extremity deep venous systems. IMPRESSION: No DVT within the right or left lower extremity. The above report was generated using voice recognition software. It may contain grammatical, syntax or spelling errors. Electronically signed by: Grant Fabian M.D. 02/14/2018 6:44 AM Dictated Date/Time: 02/14/2018 6:44 AM
[2018-02-14] MEDS ORDERED: POTASSIUM CHLORIDE 10 MEQ TABCR PO STA (07:49)
[2018-02-14] MEDS: POTASSIUM CHLORIDE 20 MEQ TABCR PO SCH (07:52)
[2018-02-14] MEDS: ASPIRIN 81 MG ECTAB PO SCH (07:53)
[2018-02-14] MEDS: CHOLECALCIFEROL 1000 INTER.UNIT TAB PO SCH (07:53)
[2018-02-14] MEDS: CHECK FENTANYL PATCH PLACEMENT SCH ×3 (07:54→23:32)
[2018-02-14] MEDS: DOCUSATE SODIUM 100 MG CAP PO SCH ×2 (07:54→20:37)
[2018-02-14] MEDS: GABAPENTIN 100 MG CAP PO SCH ×3 (07:54→20:38)
[2018-02-14] MEDS: HydrALAZINE HCL 20 MG/ML VIAL IV. PRN (08:11)
[2018-02-14 08:45] LABS: ALBUMIN 2.6 gm/dl (3.4-5.0); TOTAL PROTEIN 6.2 gm/dl (6.4-8.2)
[2018-02-14] MEDS ORDERED: LISINOPRIL 20 MG TAB PO SCH ×2 (09:00)
[2018-02-14] MEDS ORDERED: FUROSEMIDE INJ 40 MG in SYRINGE 0 ML IV SCH (09:00)
[2018-02-14] MEDS ORDERED: SODIUM CHLORIDE 0.9% 500ML 500 ML IV SCH (10:30)
[2018-02-14] MEDS ORDERED: AMOXICILLIN/CLAVULANATE TAB 875 MG TAB PO ONE (10:43)
[2018-02-14] MEDS ORDERED: LIDOCAINE HCL 2% JELLY 30 ML TUBE EXT ONE (10:45)
[2018-02-14] MEDS ORDERED: APIXABAN 2.5 MG TAB PO ONE (10:48)
--- NOTE | 2018-02-14 10:55 | Hospitalist Progress Note ---
Hospitalist Progress Note Date of Service Feb 14, 2018. Subjective Pt evaluation today including: conversation w/ patient Pt went back into A-fib this AM and BP systolic was in the 80s. She had recently received her lisinopril and IV hydralazine for a BP of 190s systolic. SHe also received IV lasix this AM. Rates are in the 110s-120s. Discussed the case with Cardiology on the phone. Respiratory: No shortness of breath Cardiovascular: No chest pain Abdomen: + nausea All Other Systems: Reviewed and Negative Objective Vital Signs Date Time Temp Pulse Resp B/P (MAP) Pulse Ox O2 Delivery O2 Flow Rate FiO2 02/14/18 10:24 102 120/73 (89) 02/14/18 10:00 134 84/57 (66) 02/14/18 08:00 Room Air 02/14/18 07:28 36.9 78 20 191/82 (118) 96 Room Air 191/92 (125) 02/14/18 04:00 96 Room Air 02/14/18 03:29 37.3 79 18 187/79 96 Room Air 199/79 02/14/18 02:56 77 16 193/79 95 02/14/18 02:17 78 16 193/81 95 Room Air 02/14/18 02:07 80 02/14/18 01:09 85 16 172/103 96 Room Air 02/14/18 00:13 80 14 181/76 96 Room Air 02/13/18 23:05 170/76 02/13/18 23:01 84 23 193/88 96 Room Air 02/13/18 22:50 85 02/13/18 22:00 95 Room Air 02/13/18 21:18 107 02/13/18 21:08 36.6 112 22 133/84 97 Room Air Physical Exam General Appearance: WD/WN, no apparent distress Eyes: normal inspection, sclerae normal ENT: hearing grossly normal Neck: trachea midline Respiratory/Chest: lungs clear, normal breath sounds, no respiratory distress, no accessory muscle use Cardiovascular: + irregularly irregular (With tachycardia) Abdomen: normal bowel sounds, soft, + tenderness (Diffuse with very minimal palpation, no guarding or rebound tenderness) Extremities: no calf tenderness, + swelling (1+ pitting edema left greater than right to the knees bilaterally) Neurologic/Psychiatric: alert, + pertinent finding (Anxious) Skin: normal color, warm/dry, no rash Laboratory Results Last 24 Hours Test 02/13/18 21:05 02/13/18 22:33 02/14/18 04:42 02/14/18 10:30 Urine Color YELLOW Urine Appearance TURBID Urine pH 7.5 Urine Specific [place] 1.008 Urine Protein NEG Urine Glucose (UA) NEG Urine Ketones NEG Urine Occult Blood NEG Urine Nitrite NEG Urine Bilirubin NEG Urine Urobilinogen NEG Urine Leukocyte Esterase TRACE Urine WBC (Auto) 1-5 /hpf Urine RBC (Auto) 0-4 /hpf Urine Hyaline Casts (Auto) 0 /lpf Urine Epithelial Cells (Auto) >30 /lpf Urine Bacteria (Auto) NEG White Blood Count 7.45 K/uL 7.33 K/uL Red Blood Count 3.77 M/uL 3.91 M/uL Hemoglobin 11.6 g/dL 11.7 g/dL Hematocrit 35.3 % 36.7 % Mean Corpuscular Volume 93.6 fL 93.9 fL Mean Corpuscular Hemoglobin 30.8 pg 29.9 pg Mean Corpuscular Hemoglobin Concent 32.9 g/dl 31.9 g/dl Platelet Count 221 K/uL 215 K/uL Mean Platelet Volume 9.5 fL 9.7 fL Neutrophils (%) (Auto) 66.9 % Lymphocytes (%) (Auto) 20.3 % Monocytes (%) (Auto) 9.5 % Eosinophils (%) (Auto) 2.4 % Basophils (%) (Auto) 0.4 % Neutrophils # (Auto) 4.98 K/uL Lymphocytes # (Auto) 1.51 K/uL Monocytes # (Auto) 0.71 K/uL Eosinophils # (Auto) 0.18 K/uL Basophils # (Auto) 0.03 K/uL RDW Standard Deviation 47.0 fL 47.6 fL RDW Coefficient of Variation 13.8 % 13.9 % Immature Granulocyte % (Auto) 0.5 % Immature Granulocyte # (Auto) 0.04 K/uL Prothrombin Time 10.3 SECONDS Prothromb Time International Ratio 1.0 Activated Partial Thromboplast Time 23.2 SECONDS Partial Thromboplastin Ratio 0.9 Sodium Level 144 mmol/L 145 mmol/L Potassium Level 3.5 mmol/L 3.6 mmol/L Chloride Level 111 mmol/L 111 mmol/L Carbon Dioxide Level 26 mmol/L 30 mmol/L Anion Gap 7.0 mmol/L 4.0 mmol/L Blood Urea Nitrogen 12 mg/dl 9 mg/dl Creatinine 0.87 mg/dl 0.71 mg/dl Est Creatinine Clear Calc Drug Dose 42.7 ml/min 51.4 ml/min Estimated GFR () 70.4 89.4 Estimated GFR (Non- 60.7 77.1 BUN/Creatinine Ratio 13.2 12.9 Random Glucose 90 mg/dl 93 mg/dl Calcium Level 8.5 mg/dl 8.5 mg/dl Magnesium Level 2.0 mg/dl Total Bilirubin 0.4 mg/dl 0.4 mg/dl Aspartate Amino Transf (AST/SGOT) 79 U/L 64 U/L Alanine Aminotransferase (ALT/SGPT) 173 U/L 157 U/L Alkaline Phosphatase 193 U/L 180 U/L Total Creatine Kinase 51 U/L Troponin I 0.450 ng/ml 0.412 ng/ml Total Protein 6.4 gm/dl 6.2 gm/dl Albumin 2.7 gm/dl 2.6 gm/dl Globulin 3.7 gm/dl Albumin/Globulin Ratio 0.7 Thyroid Stimulating Hormone (TSH) 2.110 uIu/ml Direct Bilirubin 0.2 mg/dl Assessment and Plan This patient is an 87 y/o female with a history of HTN, HLD, ischemic CVA, PAF on Eliquis, CAD with h/o [place] s/p stent to LAD in 2006, h/o SVT s/p pacemaker ( that is now nonfunctioning), AAA, chronic pain syndrome and opioid dependence, polyneuropathy, asthma, and GERD, who was just discharged from hospital yesterday after admission for suspected biliary sepsis and acute metabolic encephalopathy. During the hospitalization, she had hypertensive urgency requiring multiple doses of IV hydralazine and eventually was placed on nifedipine which gave her excellent control of her blood pressure. Her discharged home, she felt like in her legs and abdomen came back to the ER. She was found to be in rapid atrial fibrillation and with some pitting edema lower extremities. She converted to sinus rhythm in the ER, but had mildly elevated troponin and was admitted for further evaluation. Elevated troponin/demand ischemia/rapid atrial fibrillation/peripheral edema/ hypotension-peripheral edema likely secondary to addition of nifedipine and has now been stopped. Troponin is mildly elevated at 0.42, third troponin pending. She is back in rapid atrial fibrillation currently and with hypotension which is more likely due to giving IV hydralazine and lisinopril as well as IV Lasix this morning. -Discontinue IV Lasix-I feel that edema is not from volume overload -We will give IV fluid bolus 500 cc normal saline 1 now for hypotension -As long as blood pressure recovers, will increase lisinopril to 40 mg once daily starting tomorrow -Is anticoagulated with Eliquis 5 mg p.o. 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 Godoy -Replace electrolytes as needed History of recent biliary sepsis and suspected cholangitis.-now resolved, LFTs continue to trend downward -Is to remain on Augmentin for 5 more days to finish out the course-restarted now -Is to have outpatient EUS after discharge -Hepatitis viral panel and autoimmune studies pending from previous admission CKD stage 3 - creatinine at baseline of 0.71 -Renally dose medications -Avoid nephrotoxins -Follow PRP HTN -severely uncontrolled and labile and has previous admissions for hypertensive urgency as well. Now with peripheral edema likely secondary to addition of nifedipine from last-DC nifedipine as above -It appears she used to be on beta-blockers but is not any longer possibly due to mention of bradycardia on previous admissions -Will increase lisinopril to 40 mg daily for tomorrow H/o stroke, presumably embolic from a. fib continue eliquis for secondary stroke prevention CAD, s/p stent 2006 -mildly elevated troponin likely demand ischemia as above -Continue aspirin, statin History of fecal impaction and constipation-now resolved -Continue senna, miralax, and colace BID ordered. -Could consider movantik in light of chronic narcotic usage. AAA - abdominal CT with stable size of AAA. Chronic pain syndrome/opioid dependence/chronic lower back pain-stable -Continue fentanyl patch -Continue oxycodone 5 mg p.o. every 4 hours as needed for breakthrough pain Asthma - w/o exacerbation. Prophylaxis-Eliquis Disposition-remain on telemetry PT/OT consults to be ordered-previously refused rehab/SNF placement on previous admission-would strongly recommend that now at this time Full code-however, she would not want prolonged life-sustaining measures if poor prognosis
[2018-02-14] MEDS ORDERED: AMIODARONE 200 MG TAB PO ONE (11:10)
[2018-02-14] MEDS ORDERED: FENTANYL PATCH REMOVE & WASTE SCH (15:59)
[2018-02-14] MEDS: AMOXICILLIN/CLAVULANATE TAB 875 MG TAB PO SCH (17:02)
--- NOTE | 2018-02-14 17:44 | CARDIOLOGY CONSULTATION ---
DATE OF CONSULTATION: 02/14/2018 PRIMARY PHYSICIAN: Alexei Redman MD ATTENDING AND REFERRING PHYSICIAN: Lili Longoria MD CONSULTATION: Ld Godoy MD HISTORY OF PRESENT ILLNESS: The patient is an 88-year-old white female, well known to me. History of coronary artery disease, paroxysmal atrial fibrillation, paroxysmal supraventricular tachycardia, abdominal aortic aneurysm, carotid artery disease, hypertension and hypotension, dyslipidemia, and peripheral edema. She has a non-ST elevation HI in 2006, treated with a Taxus drug-eluting stent in her mid LAD. A 2.5 x 24 mm drug-eluting stent. Recurrent chest discomfort 2008. Repeat cardiac catheterization performed at that time revealed a patent stent in mid LAD. 30%-60% stenoses in the left circumflex system, 50% ostial and proximal RCA stenosis. History of atrial fibrillation documented on 03/25/2013. This was treated with amiodarone. She was started on Xarelto at that time. She also has a history of supraventricular tachycardia. Very remote history of implantation of an atrial burst pacemaker. This was done at [facility]. The device is nonfunctional at this time. An echocardiogram performed in August 2017 revealed LV ejection fraction 65%-70%, left ventricular diastolic dysfunction, mildly elevated estimated right ventricular systolic pressure, mild tricuspid regurgitation, and trace aortic regurgitation. She has had multiple hospital admissions over the past several years. Her most recent 2 admissions were in December and January of 2018. She was admitted from January 06 to January 10 for bilateral leg pain, ambulatory dysfunction, fatigue, and intermittent abdominal pain. She was readmitted from February 09 - February 13 with mental status changes. She was diagnosed with an acute metabolic encephalopathy. Suspected biliary sepsis. Because of hypertension, she was started on nifedipine 30 mg daily in addition to her lisinopril 10 mg b.i.d. The patient states that when she got home yesterday afternoon, she began to develop increasing edema of her feet, ankles, and legs. She also felt that she was having increased abdominal distention. At baseline, she has chronic mild edema of her lower extremities. Because of this perceived increase in peripheral edema, she came back to the Emergency Department. In the Emergency Department, the exam by the Emergency Department physician stated that there was moderate bilateral pedal edema, right greater than left. While in the Emergency Department, she had atrial fibrillation with rapid ventricular response. Subsequently, she spontaneously converted to sinus rhythm. She was admitted to the telemetry unit. For hypertension this morning, she was given her lisinopril as well as intravenous hydralazine. She thereafter developed recurrent atrial fibrillation with ventricular rates in the 120s. Highest pulse rate documented in vital signs is 134. Her blood pressure at that time was 84/57. The episode of atrial fibrillation lasted for approximately an hour and a half. She then spontaneously converted to sinus rhythm. Thereafter, her blood pressure increased to 151/68 with a pulse of 81. The patient was seen by me this afternoon in her telemetry unit room. She states that last night and this morning's atrial fibrillation episodes were asymptomatic in regards to palpitations. She did have associated dyspnea with the episodes. She had lightheadedness this morning when her blood pressure was documented to be low. This has since resolved. She denies any chest pain or other anginal type pains. No orthopnea or PND. Since admission, she was also treated with intravenous furosemide. Since admission, she feels that her leg and pedal edema had decreased. Her abdominal distention is also decreased. She currently denies any fevers or chills. No HEENT complaints. Chronic back pain. For this, she is on a fentanyl patch. No current abdominal discomfort. On a recent admission, she was noted to be constipated. She denies any symptoms of bleeding. She denies any focal motor weakness. She has diffuse weakness in all extremities. Overall, she feels very fatigued. No current leg or foot pain. PAST MEDICAL HISTORY: 1. Coronary artery disease as above. 2. Hypertension and hypotension. 3. Cerebrovascular disease. CT angiography of the carotid arteries performed in August 2017 revealed no significant carotid artery stenoses. 4. History of hypertensive emergency associated with mental status changes in April 2017. 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 5. Paroxysmal supraventricular tachycardia. 6. Paroxysmal atrial fibrillation. 7. Peripheral vascular disease. History of abdominal aortic aneurysm. Abdominal CT scan on 02/09/2018 with a 3.8-cm diameter infrarenal abdominal aortic aneurysm. 8. History of L1 fracture. Urgent lumbar decompression surgery on 11/27/2014 from L2-L5 level. 9. Admission on 01/22/2015 with functional quadriplegia. She was also diagnosed with deep venous thrombosis in her right lower extremity. 10. Placement of IVC filter on 01/24/2015. 11. Subsequent thoracic decompression surgery at T10-T11. 12. Admission for hypertensive emergency in April 2007. 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 13. Admission in August 2017 for vertigo and dizziness. CT scan of head at that time with no acute findings. She was noted to have severe hypertension. Cardiology consultation was not obtained on that admission. 14. Chronic osteoarthritis. 15. Dilatation of pancreatic duct. 16. Dyslipidemia. 17. Chronic peripheral edema. 18. Gastroesophageal reflux disease. 19. Osteoporosis. 20. Polyneuropathy. 21. Sacral radiculopathy. 22. Vitamin D deficiency. PAST SURGICAL HISTORY: 1. Lumbar surgery as documented above. 2. Thoracic decompression surgery as documented above. 3. Status post cholecystectomy. 4. Inferior vena cava Lance filter. 5. History of knee arthroplasty. 6. Atrial burst pacemaker as documented above. 7. Status post total abdominal hysterectomy. SOCIAL HISTORY: The patient lives with her daughter. She does not drink alcohol. Never smoker. FAMILY HISTORY: Breast cancer in her mother. Family history of coronary artery disease and Parkinson's disease. ALLERGIES AND ADVERSE DRUG REACTIONS: ADENOSINE. In the past, the patient had been on amiodarone. This was discontinued in a cardiology clinic followup visit note on 10/17/2017 as it was felt that that might be contributing to her symptoms of vertigo. In the past, she has been on beta tadeo therapy, which was discontinued because of sinus bradycardia with rates in the 40s. This was done on 09/27/2017 cardiology clinic followup visit. CURRENT MEDICATIONS: Lisinopril 40 mg daily, MiraLax 17 grams daily, Senokot 8.6 mg daily, atorvastatin 40 mg at bedtime, Eliquis 5 mg b.i.d., amiodarone 400 mg b.i.d., amoxicillin/clavulanate 875 mg b.i.d., fentanyl patch 12 mcg every 3 days, aspirin 81 mg daily, vitamin D 2000 units daily, Colace 200 mg b.i.d., gabapentin 200 mg t.i.d., potassium 20 mEq daily, hydralazine 10 mg IV q. 6 hours as needed for systolic blood pressure greater than 180, and several other p.r.n. medications. REVIEW OF SYSTEMS: As above. Monitor history reviewed by me. Currently, she is in sinus rhythm. Atrial fibrillation with rapid ventricular response this morning lasting approximately 1-1/2 hours. Spontaneous conversion to sinus rhythm. PHYSICAL EXAMINATION: VITAL SIGNS: This afternoon with oral temperature 36.9, pulse 73, blood pressure 151/60, and pulse oximetry on room air 94%. GENERAL APPEARANCE: Shows her to appear fatigued. She is lying in her bed. No distress. HEAD: Normal. EYES: Pupils equal and round. Anicteric. Conjunctivae normal. NECK: No jugular venous distension. Carotids 2/2 bilaterally. Normal upstroke. No bruits. LUNGS: Normal respiratory effort. No rales or wheezes. HEART: Regular rate and rhythm. S1 and S2 normal. No S3 or S4. No murmur or rub. ABDOMEN: Soft. Nontender. Normal bowel sounds. No palpable masses or organomegaly. NEUROLOGIC: She is alert and oriented x3. She can move all extremities. PSYCHIATRIC: Affect is normal. EXTREMITIES: 1+ pedal, ankle, and pretibial edema bilaterally. DATA: Electrocardiogram last evening with atrial fibrillation with rapid ventricular response. Ventricular rate 121 beats per minute. Poor R-wave progression in V1-V3 consistent with anteroseptal HI. Q-waves in leads [address] depressions consistent with ischemia. Electrocardiogram performed following conversion to sinus rhythm last evening shows normal sinus rhythm at a rate of 88 beats per minute. Poor R-wave progression in V1-V3. Improvement in the anterolateral ST-T depressions. Electrocardiogram this morning with sinus rhythm with premature supraventricular beats. Poor R-wave progression in V1-V3. Nonspecific ST abnormalities. Electrocardiograms were all reviewed by me. Venous Doppler exam of the legs performed last night showed no evidence of deep venous thrombosis. Chest x-ray performed last night and reviewed by me shows a very small left pleural effusion. No evidence of pulmonary vascular congestion. LABORATORY DATA: Today with WBC 7.23, hemoglobin 11.7, hematocrit 36.7, and platelet count 215. Metabolic profile this morning with sodium 145, potassium 3.6, chloride 111, carbon dioxide 30, BUN 9, creatinine 0.71, and random glucose 93. Her AST last evening was 79 with an ALT of 173. Total bilirubin 0.4. Magnesium last night was 2.0. Troponin I's have been 0.450 and 0.412. TSH 2.110. Albumin 2.7. INR last evening 1.0 with a PTT of 23.2. ASSESSMENT: 1. Paroxysmal atrial fibrillation with rapid ventricular response. Episodes last evening in the Emergency Department. Spontaneous conversion to sinus rhythm. Recurrent episode this morning in the telemetry unit. Spontaneous conversion to sinus rhythm. In the past, she has been treated with amiodarone. This was discontinued in September 2017 as it was felt that it might be contributing to her symptoms of vertigo. She also has a history of paroxysmal supraventricular tachycardia. Very remote history of placement of an atrial burst pacemaker at [facility]. This device is nonfunctional. It is presumed that the battery is . There is no way to interrogate this device. This has been previously documented by me. 2. Coronary artery disease. History of mid LAD stent. She also has moderate atherosclerotic disease in her left circumflex and right coronary artery. No current or recent anginal type symptoms. Her troponin I's are mildly elevated on this admission. Suspect secondary to demand ischemia. Elevated heart rate. Also, she has been noted to have episodes of elevated blood pressures on this admission. Last evening in the Emergency Department, blood pressure was 193/88. This morning, blood pressure as high as 191/92. On her February 09 admission, she was noted to have systolic blood pressures as high as 210. After receiving lisinopril and hydralazine this morning, her blood pressure has improved. When she had the atrial fibrillation with rapid ventricular response this morning, her blood pressure was low. Improvement in her blood pressure with conversion to sinus rhythm. 3. Complaint of marked edema last evening. This is in her legs. She also complained of abdominal distention. Cannot exclude adverse effect from the nifedipine. Also, her hypoalbuminemia would contribute to formation of edema. The patient feels that her edema has decreased since last night. She does have a history of chronic peripheral edema. 4. Chronic back pain. 5. Chronic bilateral leg weakness. 6. Cerebrovascular disease. 7. Peripheral vascular disease. 8. Small infrarenal abdominal aortic aneurysm. RECOMMENDATIONS: 1. The patient's case was discussed by me this morning with Dr. Longoria. It was recommended that her lisinopril dose be increased. It was recommended that she be restarted on amiodarone therapy. Oral therapy at a dose of 40 mg b.i.d. has been started. If she has recurrence of atrial fibrillation with rapid ventricular response, would switch her to intravenous amiodarone in the short term. 2. If she has any significant bradycardia on amiodarone, would then need to consider placement of a permanent demand pacemaker. 3. Continue with daily diuretic. 4. No further cardiac workup at this time. A repeat echocardiogram would be of no significant benefit. Her enzyme elevation was minimal. She had an echocardiogram performed last August. She does not have any evidence of pulmonary vascular congestion. 5. Continue antithrombotic therapy with Eliquis and aspirin. 6. At the time of discharge, would discharge her home on amiodarone dose of 200 mg daily. The current dose of 400 mg b.i.d. is only for the short term. Thank you for asking me to see this patient in cardiology consultation.
[2018-02-14] MEDS: AMIODARONE 200 MG TAB PO SCH (20:36)
[2018-02-14] MEDS: ATORVASTATIN 20 MG TAB PO SCH (20:37)
[2018-02-14] MEDS: APIXABAN 2.5 MG TAB PO SCH (20:37)
[2018-02-15] VITALS (8 sets, daily range): BP systolic 131–172; BP diastolic 63–78; PULSE 60–68; TEMP 36.6–37; O2SAT 95–98
[2018-02-15 07:12] LABS: BASO % 0.3 %; BASO ABS # 0.02 K/uL (0-0.2); EOS % 2.3 %; EOS ABS # 0.16 K/uL (0-0.5); HEMATOCRIT 34.4 % (37-47); HEMOGLOBIN 11.2 g/dL (12.0-16.0); IG# 0.05 K/uL (0.00-0.02); LYMPH % 24.5 %; LYMPH ABS # 1.72 K/uL (1.2-3.4); MEAN CELL VOLUME 94.8 fL (80-100); MEAN CORPUSCULAR HEMOGLOBIN 30.9 pg (25-34); MEAN CORPUSCULAR HGB CONC 32.6 g/dl (32-36); MEAN PLATELET VOLUME 9.7 fL (7.4-10.4); MONO % 11.9 %; MONO ABS # 0.84 K/uL (0.11-0.59); NEUT % 60.3 %; NEUT ABS # 4.24 K/uL (1.4-6.5); PLATELET COUNT 235 K/uL (130-400); RED CELL DISTRIBUTION WIDTH CV 14.3 % (11.5-14.5); RED CELL DISTRIBUTION WIDTH SD 49.4 fL (36.4-46.3); WHITE BLOOD COUNT 7.03 K/uL (4.8-10.8)
[2018-02-15] MEDS: ASPIRIN 81 MG ECTAB PO SCH (07:45)
[2018-02-15] MEDS: APIXABAN 2.5 MG TAB PO SCH ×2 (07:45→21:07)
[2018-02-15 07:46] LABS: CALCIUM 8.9 mg/dl (8.5-10.1); CREATININE 0.91 mg/dl (0.60-1.20); POTASSIUM 4.2 mmol/L (3.5-5.1)
[2018-02-15] MEDS: CHOLECALCIFEROL 1000 INTER.UNIT TAB PO SCH (07:46)
[2018-02-15] MEDS: SENNA 8.6 MG TAB PO SCH (07:46)
[2018-02-15] MEDS: AMIODARONE 200 MG TAB PO SCH ×2 (07:46→21:07)
[2018-02-15] MEDS: POTASSIUM CHLORIDE 20 MEQ TABCR PO SCH (07:47)
[2018-02-15] MEDS: DOCUSATE SODIUM 100 MG CAP PO SCH ×2 (07:48→21:00)
[2018-02-15] MEDS: POLYETHYLENE (MIRALAX) 17 GM PACK PO SCH (07:48)
[2018-02-15] MEDS: LISINOPRIL 40 MG TAB PO SCH (07:49)
[2018-02-15] MEDS: AMOXICILLIN/CLAVULANATE TAB 875 MG TAB PO SCH ×2 (07:49→16:45)
[2018-02-15] MEDS: GABAPENTIN 100 MG CAP PO SCH ×3 (07:50→21:07)
[2018-02-15] MEDS: CHECK FENTANYL PATCH PLACEMENT SCH ×2 (07:50→14:48)
[2018-02-15 08:04] LABS: ALBUMIN 2.5 gm/dl (3.4-5.0)
--- NOTE | 2018-02-15 13:14 | CARDIOLOGY PROGRESS NOTE ---
DATE: 02/15/2018 SUBJECTIVE: The patient was seen by me this morning. This was in her telemetry unit room. She states that she feels stronger today than yesterday. No lightheadedness arising from bed today. No orthopnea or PND overnight. She denies any dyspnea at rest. No chest pain or other anginal type pains. No palpitations. Her appetite is improved today compared to yesterday. She feels that the edema in her legs and feet has decreased since admission. No pulmonary complaints. No urinary complaints. She does have an indwelling Greer catheter. No new neurologic type complaints. No bleeding complaints. MEDICATIONS: This morning were lisinopril 40 mg daily, MiraLax 17 grams daily, Senokot 8.6 mg daily, atorvastatin 40 mg at bedtime, Eliquis 5 mg b.i.d., amiodarone 400 mg b.i.d., Augmentin 875 mg b.i.d., fentanyl patch 12 mcg every 3 days, aspirin 81 mg daily, vitamin D 2000 units daily, docusate sodium 200 mg b.i.d., gabapentin 200 mg t.i.d., and several p.r.n. medications. ALLERGIES AND ADVERSE DRUG REACTIONS: ADENOSINE. PHYSICAL EXAMINATION: GENERAL: At the time of exam, the patient was sitting in a chair by her bedside. No distress. VITAL SIGNS: This morning with oral temperature of 36.9, pulse 63, blood pressure 136/70, and pulse oximetry room air 98%. Monitor history reviewed by me. Sinus bradycardia. No further atrial fibrillation since yesterday morning. NECK: No jugular venous distention. LUNGS: Normal respiratory effort. No rales or wheezes. HEART: Regular rhythm. No S3 or S4. No murmur or rub. ABDOMEN: Soft and nontender. No palpable masses or organomegaly. No bruits. EXTREMITIES: Trace pretibial and pedal edema bilaterally. NEUROLOGIC: Alert and oriented x3. Motor grossly intact. LABORATORY DATA: Today with hemoglobin 11.2, hematocrit 34.4, WBC 7.03, and platelet count 235. Metabolic profile with sodium 142, potassium 4.2, chloride 108, carbon dioxide 28, BUN 17, creatinine 0.91, and random glucose 98. AST 43 and ALT 108. Serum albumin 2.5. Troponin I late yesterday morning was 0.286. Peak troponin I on this admission was 0.450 on February 13 at 10:33 p.m. This was in the Emergency Department. ASSESSMENT: 1. Paroxysmal atrial fibrillation. No further atrial fibrillation since yesterday morning. 2. Sinus bradycardia. 3. Hypertension. Blood pressure under adequate control today with current medical regimen. 4. Improvement in peripheral edema since admission. 5. Coronary artery disease. No anginal type symptoms. Mildly elevated troponin I at the time of admission. It subsequently decreased. No acute ischemic changes on electrocardiogram. Suspect secondary to demand ischemia. This would be secondary to episodes of increased heart rate as well as increased blood pressure. 6. No bleeding complaints on anticoagulation therapy. RECOMMENDATIONS: 1. Decrease amiodarone today to 200 mg b.i.d. At the time of discharge, would decrease the dose to 200 mg once daily. 2. Continue lisinopril 40 mg daily. 3. Continue anticoagulation therapy. 4. Increase activity. 5. The patient asked me if she should go to rehab hospital. She was seeking my opinion on this. I strongly advised to her that it would be best for her to go to a rehabilitation facility prior to going home. The benefits of this were extensively discussed with her by me.
--- NOTE | 2018-02-15 13:56 | Hospitalist Progress Note ---
Hospitalist Progress Note Date of Service Feb 15, 2018. Subjective Pt evaluation today including: conversation w/ patient Voiding: mata catheter in place Feeling much better. Less swollen, no CP or SOB. Remains in NSR since yesterday. Is moving her bowels, eating. Pt's HCPOA was in earlier today and they had a long discussion and pt tells me now she wants to be a DNR/DNI All Other Systems: Reviewed and Negative Objective Vital Signs Date Time Temp Pulse Resp B/P (MAP) Pulse Ox O2 Delivery O2 Flow Rate FiO2 02/15/18 12:17 Room Air 02/15/18 11:42 36.8 60 20 138/78 (98) 98 Room Air 02/15/18 08:00 98 Room Air 3.0 02/15/18 07:40 36.9 63 20 136/70 (92) 98 Room Air 02/15/18 04:00 37.0 65 22 163/71 (101) 95 Room Air 02/15/18 04:00 95 Room Air 02/15/18 00:00 96 Room Air 02/15/18 00:00 37.0 68 20 137/72 (93) 96 Room Air 02/14/18 20:30 116/67 (83) 02/14/18 20:00 Room Air 02/14/18 19:54 36.7 70 18 86/47 (60) 96 Nasal Cannula 3.0 02/14/18 16:00 Room Air 02/14/18 14:46 36.9 73 17 151/60 (90) 94 Room Air Physical Exam General Appearance: WD/WN, no apparent distress Eyes: normal inspection, sclerae normal ENT: hearing grossly normal Neck: trachea midline Respiratory/Chest: lungs clear, normal breath sounds, no respiratory distress, no accessory muscle use Cardiovascular: regular rate, rhythm, no edema, no murmur Abdomen: normal bowel sounds, non tender, soft Extremities: non-tender, no calf tenderness, + swelling (1+ pitting edema legs to knee sbilat) Neurologic/Psychiatric: alert, normal mood/affect, oriented x 3 Skin: normal color, warm/dry, no rash Laboratory Results Last 24 Hours Test 02/15/18 06:19 White Blood Count 7.03 K/uL Red Blood Count 3.63 M/uL Hemoglobin 11.2 g/dL Hematocrit 34.4 % Mean Corpuscular Volume 94.8 fL Mean Corpuscular Hemoglobin 30.9 pg Mean Corpuscular Hemoglobin Concent 32.6 g/dl Platelet Count 235 K/uL Mean Platelet Volume 9.7 fL Neutrophils (%) (Auto) 60.3 % Lymphocytes (%) (Auto) 24.5 % Monocytes (%) (Auto) 11.9 % Eosinophils (%) (Auto) 2.3 % Basophils (%) (Auto) 0.3 % Neutrophils # (Auto) 4.24 K/uL Lymphocytes # (Auto) 1.72 K/uL Monocytes # (Auto) 0.84 K/uL Eosinophils # (Auto) 0.16 K/uL Basophils # (Auto) 0.02 K/uL RDW Standard Deviation 49.4 fL RDW Coefficient of Variation 14.3 % Immature Granulocyte % (Auto) 0.7 % Immature Granulocyte # (Auto) 0.05 K/uL Sodium Level 142 mmol/L Potassium Level 4.2 mmol/L Chloride Level 108 mmol/L Carbon Dioxide Level 28 mmol/L Anion Gap 6.0 mmol/L Blood Urea Nitrogen 17 mg/dl Creatinine 0.91 mg/dl Est Creatinine Clear Calc Drug Dose 40.0 ml/min Estimated GFR () 66.2 Estimated GFR (Non- 57.1 BUN/Creatinine Ratio 18.5 Random Glucose 98 mg/dl Calcium Level 8.9 mg/dl Magnesium Level 2.2 mg/dl Total Bilirubin 0.3 mg/dl Direct Bilirubin 0.2 mg/dl Aspartate Amino Transf (AST/SGOT) 43 U/L Alanine Aminotransferase (ALT/SGPT) 108 U/L Alkaline Phosphatase 166 U/L Total Protein 6.0 gm/dl Albumin 2.5 gm/dl Assessment and Plan This patient is an 87 y/o female with a history of HTN, HLD, ischemic CVA, PAF on Eliquis, CAD with h/o CT s/p stent to LAD in 2006, h/o SVT s/p pacemaker ( that is now nonfunctioning), AAA, chronic pain syndrome and opioid dependence, polyneuropathy, asthma, and GERD, who was just discharged from hospital yesterday after admission for suspected biliary sepsis and acute metabolic encephalopathy. During the hospitalization, she had hypertensive urgency requiring multiple doses of IV hydralazine and eventually was placed on nifedipine which gave her excellent control of her blood pressure. Her discharged home, she felt like in her legs and abdomen came back to the ER. She was found to be in rapid atrial fibrillation and with some pitting edema lower extremities. She converted to sinus rhythm in the ER, but had mildly elevated troponin and was admitted for further evaluation. Elevated troponin/demand ischemia/rapid atrial fibrillation/peripheral edema/ hypotension-peripheral edema likely secondary to addition of nifedipine and has now been stopped. Edema improving Troponin is mildly elevated at 0.4/0.4/0.28 and is secondary to demand ischemia. She had some brief periods of rapid atrial fibrillation with hypotension on hospital day #1, now none since starting amiodarone po. -Discontinued IV Lasix-I feel that edema is not from volume overload -Is anticoagulated with Eliquis 5 mg p.o. twice daily -Cardiology consultation appreciated -Strict I's and O's/daily weights/low-sodium diet -May need consideration for pacemaker for SSS given history of bradycardia on amiodarone and metoprolol, and now with tachycardia intermittently -continue amiodarone but reduced today to 200mg po bid and Cardio recommends reducing to 200mg po daily on dc -Replace electrolytes as needed History of recent biliary sepsis and suspected cholangitis.-now resolved, LFTs continue to trend downward -Is to remain on Augmentin for 4 more days to finish out the course -Is to have outpatient EUS after discharge -Hepatitis viral panel and autoimmune studies from previous admission are negative CKD stage 3 - creatinine at baseline and is normal -Renally dose medications -Avoid nephrotoxins -Follow PRP HTN -severely uncontrolled and labile and has previous admissions for hypertensive urgency as well. Admitted with peripheral edema likely secondary to addition of nifedipine from last-DC nifedipine as above BPs improved today with increased lisinopril 40mg daily -It appears she used to be on beta-blockers but is not any longer possibly due to mention of bradycardia on previous admissions -continue lisinopril 40 mg daily -on amiodarone as well which can lower BP H/o stroke, presumably embolic from a. fib continue eliquis for secondary stroke prevention CAD, s/p stent 2006 -mildly elevated troponin likely demand ischemia as above -Continue aspirin, statin -can't tolerate beta blockers History of fecal impaction and constipation-now resolved -Continue senna, miralax, and colace BID ordered. -Could consider movantik in light of chronic narcotic usage if recurs AAA - abdominal CT with stable size of AAA. Chronic pain syndrome/opioid dependence/chronic lower back pain-stable -Continue fentanyl patch -Continue oxycodone 5 mg p.o. every 4 hours as needed for breakthrough pain Asthma - w/o exacerbation. Prophylaxis-Eliquis Disposition-remain on telemetry PT/OT consults pending-previously refused rehab/SNF placement on previous admission-would strongly recommend that now at this time -could possibly be discharged to SNF tomorrow if remains in sinus rhythm DNR/DNI
[2018-02-15] MEDS: ATORVASTATIN 20 MG TAB PO SCH (21:07)
[2018-02-16] VITALS (8 sets, daily range): BP systolic 86–187; BP diastolic 44–78; PULSE 63–72; TEMP 36.4–36.9; O2SAT 96
[2018-02-16] MEDS: CHECK FENTANYL PATCH PLACEMENT SCH ×4 (00:09→21:27)
[2018-02-16] MEDS: HydrALAZINE HCL 20 MG/ML VIAL IV. PRN (04:28)
[2018-02-16] MEDS: GABAPENTIN 100 MG CAP PO SCH ×3 (08:48→21:27)
[2018-02-16] MEDS: ASPIRIN 81 MG ECTAB PO SCH (08:48)
[2018-02-16] MEDS: APIXABAN 2.5 MG TAB PO SCH ×2 (08:48→21:27)
[2018-02-16] MEDS: AMOXICILLIN/CLAVULANATE TAB 875 MG TAB PO SCH ×2 (08:48→17:50)
[2018-02-16] MEDS: LISINOPRIL 40 MG TAB PO SCH (08:48)
[2018-02-16] MEDS: AMIODARONE 200 MG TAB PO SCH ×2 (08:49→21:26)
[2018-02-16] MEDS: CHOLECALCIFEROL 1000 INTER.UNIT TAB PO SCH (08:50)
[2018-02-16] MEDS: DOCUSATE SODIUM 100 MG CAP PO SCH ×2 (08:50→21:00)
[2018-02-16] MEDS: SENNA 8.6 MG TAB PO SCH (08:52)
[2018-02-16] MEDS: POLYETHYLENE (MIRALAX) 17 GM PACK PO SCH (08:52)
[2018-02-16 09:42] LABS: BASO % 0.3 %; BASO ABS # 0.03 K/uL (0-0.2); EOS % 1.9 %; EOS ABS # 0.18 K/uL (0-0.5); HEMATOCRIT 37.8 % (37-47); HEMOGLOBIN 12.3 g/dL (12.0-16.0); IG# 0.05 K/uL (0.00-0.02); LYMPH ABS # 2.22 K/uL (1.2-3.4); MEAN CELL VOLUME 95.5 fL (80-100); MEAN CORPUSCULAR HEMOGLOBIN 31.1 pg (25-34); MEAN CORPUSCULAR HGB CONC 32.5 g/dl (32-36); MEAN PLATELET VOLUME 9.3 fL (7.4-10.4); MONO % 7.3 %; NEUT ABS # 6.47 K/uL (1.4-6.5); PLATELET COUNT 263 K/uL (130-400); RED CELL DISTRIBUTION WIDTH CV 14.2 % (11.5-14.5); RED CELL DISTRIBUTION WIDTH SD 49.2 fL (36.4-46.3); WHITE BLOOD COUNT 9.65 K/uL (4.8-10.8)
[2018-02-16 10:06] LABS: ALBUMIN 2.7 gm/dl (3.4-5.0); CALCIUM 8.8 mg/dl (8.5-10.1); POTASSIUM 3.8 mmol/L (3.5-5.1)
[2018-02-16 10:08] LABS: TOTAL PROTEIN 6.4 gm/dl (6.4-8.2)
[2018-02-16] MEDS ORDERED: POTASSIUM CHLORIDE 10 MEQ TABCR PO STA (11:56)
--- NOTE | 2018-02-16 15:13 | CARDIOLOGY PROGRESS NOTE ---
DATE: 02/16/2018 SUBJECTIVE: The patient was seen by me this morning in her telemetry unit room. She denies any palpitations. No chest pain or other anginal type pains. No dyspnea at rest. No orthopnea or PND. No lightheadedness or syncope. No pain in her legs. No abdominal discomfort at rest. Her abdomen is tender on palpation. Her appetite is fair. No fevers or chills. No pulmonary complaints. No urinary complaints. No acute neurologic type symptoms. No bleeding complaints. The patient does complain of low back discomfort. She states that this has been exacerbated by lying in a hospital bed for prolonged periods of time. Overnight, her back discomfort increased in intensity. She received narcotic analgesics for this. With the increase in pain, her blood pressure was elevated at 187/78. CURRENT MEDICATIONS: Amiodarone 200 mg b.i.d., lisinopril 40 mg daily, MiraLax 17 grams daily, Senokot 8.6 mg daily, atorvastatin 40 mg daily, Eliquis 5 mg b.i.d., Augmentin 875 mg b.i.d., fentanyl patch 12 mcg every 3 days, aspirin 81 mg daily, vitamin D 2000 units daily, docusate sodium 2 mg b.i.d., gabapentin 200 mg t.i.d., and several p.r.n. medications. DATA: Monitor history reviewed by me. Over the past 24 hours, no atrial fibrillation. Sinus rhythm and sinus bradycardia. PHYSICAL EXAMINATION: VITAL SIGNS: This morning with oral temperature of 36.6, pulse 63, blood pressure 108/56, and pulse oximetry on room air 96%. GENERAL APPEARANCE: Shows her to be in no distress. She does appear fatigued. NECK: No jugular venous distention. LUNGS: Normal respiratory effort. Clear. No rales or wheezes. HEART: Regular rate and rhythm. S1 and S2 normal. No S3, S4. No murmur or rub. ABDOMEN: Diffusely tender. No palpable masses or organomegaly. Normal bowel sounds. No bruits. EXTREMITIES: Trace to 1+ pretibial and pedal edema bilaterally. NEUROLOGIC: Alert and oriented x3. Motor grossly intact. PSYCHIATRIC: Affect is normal. LABORATORY DATA: Today with hemoglobin 12.3, hematocrit 37.8, and platelet count 263. Sodium 140, potassium 3.8, carbon dioxide 24, BUN 21, creatinine 1.0, and random glucose 107. AST 37. ALT 90. Serum albumin 2.7. ASSESSMENT: 1. No documentation of atrial fibrillation since the morning of February 12. She is in sinus rhythm since then. 2. No excessive bradycardia with amiodarone. In the past when she was on both the combination of amiodarone and beta tadeo, she did have sinus bradycardia with rates in the 40s. 3. Amiodarone discontinued in the past because of complaints of dizziness. No such complaints at this time. 4. Hypertension. Increase blood pressure overnight. This occurred at the time of complaint of increased low back discomfort. During the day yesterday, her blood pressure was under good control. Blood pressure this morning shows good control. She did receive 10 mg of intravenous hydralazine overnight because of her elevated systolic blood pressure. 5. Coronary artery disease. Mildly elevated troponin I on this admission. [place] to be secondary to demand ischemia. No anginal type symptoms. 6. No bleeding complaints on anticoagulation therapy. No symptoms suggestive of a thromboembolic event. RECOMMENDATIONS: 1. From a cardiac standpoint, the patient can be discharged. 2. At time of discharge, would decrease amiodarone dose to 200 mg daily. 3. Continue lisinopril 40 mg daily. 4. As her liver function tests are improving, would consider restarting her atorvastatin as an outpatient. This provided the LFTs remain decreased. 5. If she persists with peripheral edema, would consider use of spironolactone/HCTZ 25/25 one daily.
[2018-02-16] MEDS: ATORVASTATIN 20 MG TAB PO SCH (21:26)
--- NOTE | 2018-02-16 23:10 | Hospitalist Progress Note ---
Hospitalist Progress Note Date of Service Feb 16, 2018. Subjective Pt evaluation today including: conversation w/ patient, conversation w/ family , conversation w/ wireless sales consultant (Cardiology) Voiding: mata catheter in place Patient feels well today. She remains in normal sinus rhythm. Discussed the case with cardiology. She is moving her bowels regularly and denies excessive abdominal pain. Denies chest pain or shortness of breath. All Other Systems: Reviewed and Negative Objective Vital Signs Date Time Temp Pulse Resp B/P (MAP) Pulse Ox O2 Delivery O2 Flow Rate FiO2 02/16/18 20:00 36.6 67 18 114/48 (70) 96 Room Air 02/16/18 17:58 66 126/67 (86) 02/16/18 16:00 Room Air 02/16/18 15:33 36.7 66 19 86/44 (58) 96 Room Air 02/16/18 12:45 36.4 71 16 122/58 (79) 96 Room Air 02/16/18 12:00 Room Air 02/16/18 08:00 Room Air 02/16/18 07:29 36.6 63 20 108/56 (73) 96 Room Air 02/16/18 04:00 36.9 70 20 187/78 (114) 96 Room Air 02/16/18 04:00 96 Room Air 02/16/18 00:00 36.8 67 18 167/72 (103) 96 Room Air 02/16/18 00:00 96 Room Air Physical Exam General Appearance: WD/WN, no apparent distress Eyes: normal inspection, sclerae normal ENT: hearing grossly normal Neck: trachea midline Respiratory/Chest: lungs clear, normal breath sounds, no respiratory distress, no accessory muscle use Cardiovascular: regular rate, rhythm, no murmur, + pertinent finding (Trace pitting edema of the legs bilaterally much improved) Abdomen: normal bowel sounds, soft, + tenderness (Minimal diffuse without guarding or rebound consistent with her chronic abdominal pain) Extremities: no calf tenderness Neurologic/Psychiatric: alert, normal mood/affect, oriented x 3 Skin: normal color, warm/dry, no rash Laboratory Results Last 24 Hours Test 02/16/18 09:31 White Blood Count 9.65 K/uL Red Blood Count 3.96 M/uL Hemoglobin 12.3 g/dL Hematocrit 37.8 % Mean Corpuscular Volume 95.5 fL Mean Corpuscular Hemoglobin 31.1 pg Mean Corpuscular Hemoglobin Concent 32.5 g/dl Platelet Count 263 K/uL Mean Platelet Volume 9.3 fL Neutrophils (%) (Auto) 67.0 % Lymphocytes (%) (Auto) 23.0 % Monocytes (%) (Auto) 7.3 % Eosinophils (%) (Auto) 1.9 % Basophils (%) (Auto) 0.3 % Neutrophils # (Auto) 6.47 K/uL Lymphocytes # (Auto) 2.22 K/uL Monocytes # (Auto) 0.70 K/uL Eosinophils # (Auto) 0.18 K/uL Basophils # (Auto) 0.03 K/uL RDW Standard Deviation 49.2 fL RDW Coefficient of Variation 14.2 % Immature Granulocyte % (Auto) 0.5 % Immature Granulocyte # (Auto) 0.05 K/uL Sodium Level 140 mmol/L Potassium Level 3.8 mmol/L Chloride Level 107 mmol/L Carbon Dioxide Level 24 mmol/L Anion Gap 9.0 mmol/L Blood Urea Nitrogen 21 mg/dl Creatinine 1.00 mg/dl Est Creatinine Clear Calc Drug Dose 36.2 ml/min Estimated GFR () 59.1 Estimated GFR (Non- 51.0 BUN/Creatinine Ratio 20.9 Random Glucose 107 mg/dl Calcium Level 8.8 mg/dl Magnesium Level 2.1 mg/dl Total Bilirubin 0.4 mg/dl Aspartate Amino Transf (AST/SGOT) 37 U/L Alanine Aminotransferase (ALT/SGPT) 90 U/L Alkaline Phosphatase 167 U/L Total Protein 6.4 gm/dl Albumin 2.7 gm/dl Globulin 3.7 gm/dl Albumin/Globulin Ratio 0.7 Assessment and Plan This patient is an 87 y/o female with a history of HTN, HLD, ischemic CVA, PAF on Eliquis, CAD with h/o VA s/p stent to LAD in 2006, h/o SVT s/p pacemaker ( that is now nonfunctioning), AAA, chronic pain syndrome and opioid dependence, polyneuropathy, asthma, and GERD, who was just discharged from hospital yesterday after admission for suspected biliary sepsis and acute metabolic encephalopathy. During the hospitalization, she had hypertensive urgency requiring multiple doses of IV hydralazine and eventually was placed on nifedipine which gave her excellent control of her blood pressure. Her discharged home, she felt like in her legs and abdomen came back to the ER. She was found to be in rapid atrial fibrillation and with some pitting edema lower extremities. She converted to sinus rhythm in the ER, but had mildly elevated troponin and was admitted for further evaluation. Elevated troponin/demand ischemia/rapid atrial fibrillation/peripheral edema/ hypotension-peripheral edema likely secondary to addition of nifedipine and has now been stopped. Edema improving to resolved Troponin is mildly elevated at 0.4/0.4/0.28 and is secondary to demand ischemia. She had some brief periods of rapid atrial fibrillation with hypotension on hospital day #1, now none since starting amiodarone po. -Discontinued IV Lasix-I feel that edema is not from volume overload-cardiology recommends HCTZ/spironolactone 25/25 mg once daily if needed -Is anticoagulated with Eliquis 5 mg p.o. twice daily -Cardiology consultation appreciated -Strict I's and O's/daily weights/low-sodium diet -May need consideration for pacemaker in the future for SSS given history of tachybradycardia syndrome -continue amiodarone 200mg po bid and Cardio recommends reducing to 200mg po daily on dc -Replace electrolytes as needed History of recent biliary sepsis and suspected cholangitis.-now resolved, LFTs continue to trend downward -Is to remain on Augmentin for 3 more days to finish out the course -Is to have outpatient EUS after discharge -Hepatitis viral panel and autoimmune studies from previous admission are negative CKD stage 3 - creatinine at baseline and is normal -Renally dose medications -Avoid nephrotoxins -Follow PRP HTN -severely uncontrolled and labile and has previous admissions for hypertensive urgency as well. Admitted with peripheral edema likely secondary to addition of nifedipine from last-DC nifedipine as above BPs improved overall with increased lisinopril 40mg daily -It appears she used to be on beta-blockers but is not any longer possibly due to mention of bradycardia on previous admissions -continue lisinopril 40 mg daily -on amiodarone as well which can lower BP -IV hydralazine as needed SBP greater than 180 -Consider adding spironolactone/HCT as above as per cardiology H/o stroke, presumably embolic from a. fib continue eliquis for secondary stroke prevention CAD, s/p stent 2006 -mildly elevated troponin likely demand ischemia as above -Continue aspirin, statin -can't tolerate beta blockers History of fecal impaction and constipation-now resolved -Continue senna, miralax, and colace BID ordered. -Could consider movantik in light of chronic narcotic usage if recurs AAA - abdominal CT with stable size of AAA. Chronic pain syndrome/opioid dependence/chronic lower back pain-stable, pain is controlled -Continue fentanyl patch -Continue oxycodone 5 mg p.o. every 4 hours as needed for breakthrough pain Asthma - w/o exacerbation. Prophylaxis-Eliquis Disposition-remain on telemetry, was stable for discharge today but insurance authorization still pending for placement at [facility] DNR/DNI
[2018-02-17 04:00] VITALS: BP 122/71; PULSE 66; TEMP 36.9; O2SAT 95
[2018-02-17] MEDS: APIXABAN 2.5 MG TAB PO SCH (07:50)
[2018-02-17] MEDS: GABAPENTIN 100 MG CAP PO SCH ×2 (07:50→15:00)
[2018-02-17] MEDS: DOCUSATE SODIUM 100 MG CAP PO SCH (07:51)
[2018-02-17] MEDS: CHOLECALCIFEROL 1000 INTER.UNIT TAB PO SCH (07:51)
[2018-02-17] MEDS: POLYETHYLENE (MIRALAX) 17 GM PACK PO SCH (07:51)
[2018-02-17] MEDS: AMIODARONE 200 MG TAB PO SCH (07:51)
[2018-02-17] MEDS: ASPIRIN 81 MG ECTAB PO SCH (07:52)
[2018-02-17] MEDS: LISINOPRIL 40 MG TAB PO SCH (07:52)
[2018-02-17] MEDS: SENNA 8.6 MG TAB PO SCH (07:52)
[2018-02-17] MEDS: AMOXICILLIN/CLAVULANATE TAB 875 MG TAB PO SCH (07:52)
[2018-02-17] MEDS: CHECK FENTANYL PATCH PLACEMENT SCH (07:53)
--- NOTE | 2018-02-17 09:45 | CARDIOLOGY PROGRESS NOTE ---
DATE: 02/17/2018 SUBJECTIVE: The patient was seen by me this morning in her telemetry unit room. She is feeling well. Her low back discomfort has improved today compared to yesterday. No cardiac complaints. No palpitations. No chest pain or other anginal type pains. No orthopnea, PND, dyspnea, lightheadedness, or syncope. No significant edema in her legs. She states she is able to move her ankles and knees freely. She feels that her abdominal distention has decreased from admission. She continues to complain of chronic abdominal tenderness. This is unchanged. Her appetite is good. She ate her complete breakfast. No nausea. MEDICATIONS: Amiodarone 200 mg b.i.d., lisinopril 40 mg daily, MiraLax 17 grams daily, senna 8.6 mg daily, atorvastatin 40 mg at bedtime, Eliquis 5 mg b.i.d., Augmentin 875 mg b.i.d., fentanyl patch 12 mcg every 3 days, aspirin 81 mg daily, vitamin D 2000 units daily, Colace 200 mg b.i.d., gabapentin 200 mg t.i.d., and several p.r.n. medications. ALLERGIES AND ADVERSE DRUG REACTIONS: ADENOSINE. Monitor reviewed by me. Sinus rhythm. PHYSICAL EXAMINATION: VITAL SIGNS: This morning with oral temperature 36.9, pulse 66, blood pressure 122/71, and pulse oximetry on room air 95%. GENERAL APPEARANCE: Shows her to be in no distress. NECK: No jugular venous distention. LUNGS: Normal respiratory effort. Clear. No rales or wheezes. HEART: Regular rate and rhythm. S1 and S2 normal. No S3 or S4. No murmur or rub. ABDOMEN: Soft. Mild diffuse tenderness. Normal bowel sounds. EXTREMITIES: Trace pretibial, ankle, and pedal edema bilaterally. NEUROLOGIC: Alert and oriented x3. Motor grossly intact. PSYCHIATRIC: Affect normal. LABORATORY DATA: No new labs today. ASSESSMENT: 1. Improvement in peripheral edema since admission. Peripheral edema was likely secondary to a combination of adverse reaction to nifedipine as well as her hypoalbuminemia. 2. Paroxysmal atrial fibrillation. No further atrial fibrillation since on the morning of February 12. 3. Blood pressure under good control. 4. Improvement in low back pain today compared to yesterday. 5. Coronary artery disease. Mildly elevated troponin I on this admission. No anginal or anginal equivalent type symptoms. Suspect secondary to demand ischemia secondary to elevated heart rate as well as elevated blood pressure. 6. No bleeding complications on antithrombotic therapy. RECOMMENDATIONS: 1. Increase activity. 2. Decrease amiodarone to 200 mg daily. Discharge on amiodarone 200 mg daily. 3. The patient can be discharged from a cardiac standpoint. Agree with plans for her to go to a rehabilitation facility. I have discussed this with the patient and told her that I agreed with this recommendation. The benefits of rehabilitation were discussed with her by me. 4. Followup visit with me in 12 weeks. DAVID
[2018-02-17 11:35] VITALS: BP 106/62; PULSE 68; TEMP 37.1; O2SAT 97
[2018-02-17] MEDS ORDERED: LISI20TA3 PO (11:41)
[2018-02-17] MEDS ORDERED: AMOX875T PO (11:41)
[2018-02-17] MEDS ORDERED: CRD200 PO (11:41)
[2018-02-17] MEDS ORDERED: SENN-61 PO (11:41)
[2018-02-17] MEDS ORDERED: RXC5 PO (11:41)
[2018-02-17] MEDS ORDERED: DRGTP12 TD (11:41)
--- NOTE | 2018-02-17 11:54 | Discharge Instructions ---
Discharge Instructions Date of Service Feb 17, 2018. Admission Reason for Admission: Bilateral Leg Edema Discharge Discharge Diagnosis / Problem: leg edema due to side effects from nifedipine; atrial fibrillation Discharge Goals Goal(s): Learn about illness, Diagnostic testing, Therapeutic intervention Activity Recommendations Activity Level: Assistance Required Therapies: Physical Therapy, Occupational Therapy . Additional Information Patient informed of condition: Yes Advance Directives: No DNR: Yes Level of Care: Skilled Communicable Disease: No Prognosis: Stable Oxygen at (LPM): none Greer Catheter: No Instructions / Follow-Up Instructions / Follow-Up From Dr. Martinez - 1. recent concern of biliary sepsis - patient needs follow-up with Dr. Fouzia Kellogg - [facility] - within 1-2 weeks for outpatient EUS (endoscopic ultrasound). 2. patient needs repeat CMP within 5 days for stability and to ensure resolution of abnormal LFTs 3. continue miralax, senna, and colace for bowel regimen. 4. start amiodarone 200mg once daily for control of a. fib. 5. note that the lisinopril is now 20mg twice a day for BP control. 6. follow-up - * see Oly Vela, case for endoscopic u/s (EUS) * see Dr. Zuniga - cardiology - in 3 months * see medical logistics specialist of SNF within 48 hours of admission * see PCP within 1 week of discharge from [facility] Diet Patient's current hospital diet: AHA Diet (Heart Healthy) Discharge Diet Recommended Diet: AHA Diet (Heart Healthy) Procedures Procedures Performed: bilateral lower extremity venous doppler negative for blood clots Pending Studies Studies pending at discharge: no Physician Orders On Transfer Vital Signs: per routine Weigh: daily in the morning inform medical logistics specialist of any weight gain of more than 2-3 pounds in 1-2 days Additional Orders: Complete metabolic panel (CMP) in 5 days for stability report results to medical logistics specialist POLST Discussion: Not Applicable Medical Emergencies . Who to Call and When: Medical Emergencies: If at any time you feel your situation is an emergency, please call 911 immediately. . Non-Emergent Contact Non-Emergency issues call your: Primary Care Provider, Fire Controlman, Tool Operator Call Non-Emergent contact if: temperature is above 100.5, your pain is not controlled, your pain is worsening, your pain is unusual for you, your pain is concerning you, you have any medication questions . . "Provider Documentation" section prepared by Jass Martienz. . Core Measure Problem Core Measures: None
[2018-02-17 14:17] VITALS: BP 106/62; PULSE 68; TEMP 37.1; O2SAT 97
[2018-02-18] MEDS ORDERED: AMIODARONE 200 MG TAB PO SCH (09:00)
== END 2018-02-17 15:05 | disposition home or self-care (01) ==
LOC: EDBD 20:49 → C.EDC 20:50 → C.2T 02-14 02:33 → ENRESERV 02-14 02:43
PROVIDERS: ADMIT Student in an Organized Health Care Education/Training Program; ATTEND Internal Medicine
DX: R60.9 Edema, unspecified (principal); I48.0 Paroxysmal atrial fibrillation; E88.09 Other disorders of plasma-protein metabolism, not elsewhere classified; I73.9 Peripheral vascular disease, unspecified; I25.10 Atherosclerotic heart disease of native coronary artery without angina pectoris; I12.9 Hypertensive chronic kidney disease with stage 1 through stage 4 chronic kidney disease, or unspecified chronic kidney disease; E78.5 Hyperlipidemia, unspecified; G89.4 Chronic pain syndrome; F11.20 Opioid dependence, uncomplicated; G62.9 Polyneuropathy, unspecified; J45.909 Unspecified asthma, uncomplicated; K21.9 Gastro-esophageal reflux disease without esophagitis; N18.3 Chronic kidney disease, stage 3 (moderate); M54.5 Low back pain; I71.4 Abdominal aortic aneurysm, without rupture; M48.04 Spinal stenosis, thoracic region; I25.2 Old myocardial infarction; Z66 Do not resuscitate; Z79.82 Long term (current) use of aspirin; Z86.73 Personal history of transient ischemic attack (TIA), and cerebral infarction without residual deficits; Z95.0 Presence of cardiac pacemaker; Z80.3 Family history of malignant neoplasm of breast; Z80.49 Family history of malignant neoplasm of other genital organs

== ENCOUNTER 2018-03-01 11:03 | Day surgery (SDC) | payer BC ==
[2018-02-23 08:24] VITALS: BMI 27.0
--- NOTE | 2018-02-23 09:14 | PAT Medication Instructions ---
Service Date Feb 23, 2018. Current Home Medication List Albuterol (Ventolin Hfa), 2 PUFFS INH Q6H PRN for RN Amiodarone Hcl (Cordarone), 200 MG PO QAM Amoxicillin & Pot Clavulanate (Augmentin 875-125 mg), 1 TAB PO BID Apixaban (Eliquis), 5 MG PO BID Aspirin (Aspirin 81), 81 MG PO QAM Atorvastatin (Lipitor), 40 MG PO HS Cholecalciferol (Vitamin D), 2,000 INTER.UNIT PO QAM Docusate Sodium (Colace), 200 MG PO BID Fentanyl (Fentanyl), 12 MCG TOP Q72HRS Furosemide (Lasix), 20 MG PO QAM Gabapentin (Neurontin), 200 MG PO TID Lisinopril (Zestril), 20 MG PO BID Ondasetron Odt (Zofran Odt), 4 MG SL Q6H PRN for Nausea Oxycodone Ir (Roxicodone Ir), 5 MG PO Q4H PRN for Severe Pain Polyethylene Glycol 3350 (Miralax), 17 GM PO BID Sennosides (Senna-Tabs), 8.6 MG PO QAM Medication Instructions For Your Scheduled Surgery -Contact your prescriber for instructions for: Apixaban (Eliquis), 5 MG PO BID Aspirin (Aspirin 81), 81 MG PO QAM -Continue as directed: Fentanyl (Fentanyl), 12 MCG TOP Q72HRS - Hold the following medications 24 hours prior to surgery: Lisinopril (Zestril), 20 MG PO BID (Do not take the night before or the morning of surgery) - Hold the following medications the morning of surgery: Cholecalciferol (Vitamin D), 2,000 INTER.UNIT PO QAM Docusate Sodium (Colace), 200 MG PO BID Furosemide (Lasix), 20 MG PO QAM Sennosides (Senna-Tabs), 8.6 MG PO QAM Polyethylene Glycol 3350 (Miralax), 17 GM PO BID - Take the following medications the morning of surgery with a sip of water: Albuterol (Ventolin Hfa), 2 PUFFS INH Q6H PRN for RN (if needed, and bring it with you to the hospital) Amiodarone Hcl (Cordarone), 200 MG PO QAM Amoxicillin & Pot Clavulanate (Augmentin 875-125 mg), 1 TAB PO BID Gabapentin (Neurontin), 200 MG PO TID Ondasetron Odt (Zofran Odt), 4 MG SL Q6H PRN for Nausea (if needed) Oxycodone Ir (Roxicodone Ir), 5 MG PO Q4H PRN for Severe Pain (if needed, can be taken up to four hours before surgery) - Take the following medications as scheduled the night before surgery: Albuterol (Ventolin Hfa), 2 PUFFS INH Q6H PRN for RN (if needed) Amoxicillin & Pot Clavulanate (Augmentin 875-125 mg), 1 TAB PO BID Atorvastatin (Lipitor), 40 MG PO HS Docusate Sodium (Colace), 200 MG PO BID Gabapentin (Neurontin), 200 MG PO TID Ondasetron Odt (Zofran Odt), 4 MG SL Q6H PRN for Nausea (if needed) Oxycodone Ir (Roxicodone Ir), 5 MG PO Q4H PRN for Severe Pain (if needed) Polyethylene Glycol 3350 (Miralax), 17 GM PO BID If you have any questions please call us at [phone] or [phone] or [phone]
[~2018-03-01] VITALS: Ht 154.9 cm; Wt 67.1 kg
[~2018-03-01 11:03] MED LIST changes: -ACET-1256 PO; +AMIO200T4 PO; -APIX1TAB PO; +ATROPINE SULFATE 0.1 MG/ML 5ML SYR IV PRN; -DRGTP12 TD; +DRGTP12 TOP; -DRGTP25 TD; +EpHEDrine SULFATE INJ 50 MG/ML AMP IV PRN; +FENTANYL CITRATE INJ 50 MCG/1 ML 2 ML VIAL IV PRN; +FURO-85 PO; +HYDROmorphone INJ 0.5 MG/0.5 ML SYR IV PRN; +LABETALOL HCL IV 5 MG/ML 20ML IV PRN; +LACTATED RINGER'S 1000ML 1,000 ML IV SCH; +LISI-725 PO; -LISI20TA3 PO; +MEPERIDINE HCL 25 MG/ML CARP IV PRN; -NIFE30TA2 PO; +ONDANSETRON INJ 2 MG/ML 2 ML VIAL IV PRN; +OXYC1TAB3 PO; +PRVHFAIN INH; -RXC5 PO; +SENN8.6T45 PO; -VNTHFA/IN INH
[2018-03-01 11:46] VITALS: BP 190/63; PULSE 60; TEMP 37.3; O2SAT 95; Ht 154.9 cm; Wt 67.1 kg
[2018-03-01] MEDS ORDERED: LACTATED RINGER'S 1000ML 1,000 ML IV ONE (12:08)
[2018-03-01] MEDS ORDERED: HYDR25TA4 PO (12:32)
--- NOTE | 2018-03-01 12:51 | Endo History and Physical ---
History & Physical Date of Service: Mar 01, 2018. Chief Complaint: Abdominal pain Referring Physician: History of Present Illness Patient with a history of recurrent abdominal pain s/p a recent admission for pain associated with elevated liver enzymes and negative imaging. She is referred for EGD/EUS and possible ERCP Past Medical History Atrial Fibrillation, Arthritis, Pacemaker, Asthma, Reflux, High Cholesterol, Heart Disease, Hypertension, Depression, [place] Past Surgical History Hx Cardiac Surgery: No Hx Internal Defibrillator: Yes (Atrial burst pacemaker/STIMULATOR 1983) Hx Pacemaker: Yes (ANTI-TACH PACEMAKER) Hx Abdominal Surgery: Yes (shreya) Hx Post-Op Nausea and Vomiting: No Hx Cancer Surgery: No Hx Thoracic Surgery: No Hx Orthopedic: Yes (laminectomy, left TKA) Hx Urinary Tract Surgery: No Social History Smoking Status: Never Smoker Smokeless Tobacco Use: No Hx Substance Use: No Hx Alcohol Use: No Allergies Coded Allergies: Adenosine (Verified Allergy, Unknown, "pt not sure had it in er years ago ", 03/01/18) Current Medications Reported Home Medications Medications Dose Route/Sig Max Daily Dose Days Date Category Hctz (Hydrochlorothiazide) 25 Mg Tab 1 Tab PO DAILY 30 03/01/18 Reported Ventolin Hfa (Albuterol) 60 Puffs/5400 Mcg Aers 2 Puffs INH Q6H PRN 02/23/18 Reported Senna-Tabs (Sennosides) 8.6 Mg Tab 8.6 Mg PO QAM 02/23/18 Reported Roxicodone Ir (Oxycodone HCl) 5 Mg Tab 5 Mg PO Q4H PRN 02/23/18 Reported Miralax (Polyethylene Glycol 3350) 1 Pow Pow 17 Gm PO BID 02/23/18 Reported Zestril (Lisinopril) 20 Mg Tab 20 Mg PO BID 02/23/18 Reported Lasix (Furosemide) 20 Mg Tab 20 Mg PO QAM 02/23/18 Reported Fentanyl 12 Mcg Tdsy 12 Mcg TOP Q72HRS 02/23/18 Reported Eliquis (Apixaban) 5 Mg Tab 5 Mg PO BID 02/23/18 Reported Cordarone (Amiodarone Hcl) 200 Mg Tab 200 Mg PO QAM 02/23/18 Reported Colace (Docusate Sodium) 100 Mg Cap 200 Mg PO BID 02/09/18 Reported Zofran Odt (Ondansetron HCl) 4 Mg Tab 4 Mg SL Q6H PRN 02/09/18 Reported Vitamin D (Cholecalciferol) 1,000 Unit Tab 2,000 Inter.unit PO QAM 05/08/17 Reported Aspirin 81 (Aspirin) 81 Mg Tab 81 Mg PO QAM 05/08/17 Reported Neurontin (Gabapentin) 100 Mg Cap 200 Mg PO TID 04/16/17 Reported Lipitor (Atorvastatin) 40 Mg Tab 40 Mg PO HS 04/30/16 Reported Vital Signs Weight (Kilograms): 67.09 Height (Feet): 5 Height (Inches): 1 Date Time Temp Pulse Resp B/P (MAP) Pulse Ox O2 Delivery O2 Flow Rate FiO2 03/01/18 11:46 37.3 60 18 190/63 (105) 95 Room Air Physical Exam General Appearance: no apparent distress Respiratory/Chest: Auscultation: deminished air movement Cardiovascular: Heart Auscultation: II/ JIGAR Abdomen: Inspection & Palpation: soft Assessment and Plan Patient to undergo evaluation for a history of pain and elevated liver tests. We have discussed the risks to include bleeding, infection, perforation, pain, pancreatitis and failed biliary cannulation. Plan EGD EUS with possible ERCP
[2018-03-01] MEDS ORDERED: PROPOFOL IV EMULSION 10 MG/ML 20 ML VIAL IV ONE (12:58)
[2018-03-01] MEDS ORDERED: LIDOCAINE HCL 2% 2 ML VIAL (20MG/ML) ONE (12:58)
[2018-03-01] MEDS ORDERED: SUCCINYLCHOLINE CHLORIDE 20 MG/ML 10 ML VIAL IV ONE (12:58)
[2018-03-01] MEDS ORDERED: FENTANYL CITRATE INJ 50 MCG/1 ML 2 ML VIAL ONE (12:59)
[2018-03-01] MEDS ORDERED: INDOMETHACIN 50 MG SUPP PR ONE (13:15)
--- NOTE | 2018-03-01 13:32 | GI REPORT ---
Procedure Date: 03/01/2018 1:15 PM Procedure: Upper GI endoscopy Indications: Epigastric abdominal pain Medicines: General Anesthesia Complications: No immediate complications. Estimated blood loss: Minimal. Estimated Blood Loss: Estimated blood loss was minimal. Procedure: Pre-Anesthesia Assessment: - Prior to the procedure, a History and Physical was performed, and patient medications, allergies and sensitivities were reviewed. The patient's tolerance of previous anesthesia was reviewed. - The risks and benefits of the procedure and the sedation options and risks were discussed with the patient. All questions were answered and informed consent was obtained. - Patient identification and proposed procedure were verified prior to the procedure by the physician, the nurse and the pilot boat deckhand. The procedure was verified in the procedure room. - Pre-procedure physical examination revealed no contraindications to sedation. - ASA Grade Assessment: IV - A patient with severe systemic disease that is a constant threat to life. - After reviewing the risks and benefits, the patient was deemed in satisfactory condition to undergo the procedure. - The anesthesia plan was to use general anesthesia. - Immediately prior to administration of medications, the patient was re-assessed for adequacy to receive sedatives. - The heart rate, respiratory rate, oxygen saturations, blood pressure, adequacy of pulmonary ventilation, and response to care were monitored throughout the procedure. - The physical status of the patient was re-assessed after the procedure. After obtaining informed consent, the endoscope was passed under direct vision. Throughout the procedure, the patient's blood pressure, pulse, and oxygen saturations were monitored continuously. The scope was introduced through the mouth, and advanced to the third part of duodenum. The upper GI endoscopy was accomplished without difficulty. The patient tolerated the procedure well. Findings: The examined esophagus was normal. The Z-line was regular and was found 37 cm from the incisors. Diffuse mild inflammation characterized by erythema and granularity was found in the entire examined stomach. Biopsies were taken with a cold forceps for histology. Estimated blood loss was minimal. The examined duodenum was normal. Impression: - Normal esophagus. - Z-line regular, 37 cm from the incisors. - Chronic gastritis (liekly medication related). Biopsied. - Normal examined duodenum. Recommendation: - Perform an upper endoscopic ultrasound (UEUS) today. - Await pathology results. Fouzia Kellogg D.O. Fouzia Kellogg DO 03/01/2018 1:31:46 PM This report has been signed electronically. Note Initiated On: 03/01/2018 1:15 PM I attest to the content of the Intraoperative Record and orders documented therein, exceptions below
[2018-03-01] MEDS ORDERED: EpHEDrine SULFATE 50MG/5ML SYR ONE (13:35)
--- NOTE | 2018-03-01 13:53 | GI REPORT ---
Procedure Date: 03/01/2018 1:31 PM Procedure: Upper EUS Indications: Abnormal ultrasound of the abdomen, Elevated liver enzymes Medicines: General Anesthesia Complications: No immediate complications. Estimated blood loss: Minimal. Estimated Blood Loss: Estimated blood loss was minimal. Procedure: Pre-Anesthesia Assessment: - Prior to the procedure, a History and Physical was performed, and patient medications, allergies and sensitivities were reviewed. The patient's tolerance of previous anesthesia was reviewed. - The risks and benefits of the procedure and the sedation options and risks were discussed with the patient. All questions were answered and informed consent was obtained. - Patient identification and proposed procedure were verified prior to the procedure by the physician, the nurse and the cancer genetics assistant. The procedure was verified in the procedure room. - Pre-procedure physical examination revealed no contraindications to sedation. - ASA Grade Assessment: III - A patient with severe systemic disease. - After reviewing the risks and benefits, the patient was deemed in satisfactory condition to undergo the procedure. - The anesthesia plan was to use general anesthesia. - Immediately prior to administration of medications, the patient was re-assessed for adequacy to receive sedatives. - The heart rate, respiratory rate, oxygen saturations, blood pressure, adequacy of pulmonary ventilation, and response to care were monitored throughout the procedure. - The physical status of the patient was re-assessed after the procedure. After obtaining informed consent, the endoscope was passed under direct vision. Throughout the procedure, the patient's blood pressure, pulse, and oxygen saturations were monitored continuously. The Endosonoscope was introduced through the mouth, and advanced to the second part of duodenum. The upper EUS was accomplished without difficulty. The patient tolerated the procedure well. Findings: Endosonographic Finding : There was no sign of significant endosonographic abnormality in the ampulla. No masses were identified. Evidence of a previous cholecystectomy was identified endosonographically. There was dilation in the common bile duct which measured up to 14 mm. There was no sign of significant endosonographic abnormality in the left lobe of the liver. Homogeneous parenchyma and no focal pathology were identified. No lymphadenopathy seen. There was no sign of significant endosonographic abnormality in the left adrenal gland. No adrenal gland enlargement was identified. Pancreatic parenchymal abnormalities were noted in the entire pancreas. These consisted of atrophy. The pancreatic duct had a dilated endosonographic appearance in the pancreatic head. The pancreatic duct measured up to 5 mm in diameter in the pancreatic head. Endosonographic imaging in the entire pancreas showed no cyst/pseudocyst, mass or pancreas divisum. Impression: - Normal ampulla. - Evidence of a cholecystectomy. - There was dilation in the common bile duct which measured up to 14 mm. - Normal left lobe of the liver. - Endosonographic images of the left adrenal gland were unremarkable. - Pancreatic parenchymal abnormalities consisting of atrophy were noted in the entire pancreas. - The pancreatic duct had a dilated endosonographic appearance in the pancreatic head. The pancreatic duct measured up to 5 mm in diameter. - No CBD stones or Pancreatic mass was noted. Recommendation: - Discharge patient to home (ambulatory). - Advance diet as tolerated today. - Observe patient's clinical course. - Dilated CBD likely related to prior cholecystectomy and chronic pain medication use - Consider a surveillance CT in 6 months. Fouzia Kellogg D.O. Fouzia Kellogg DO 03/01/2018 1:53:06 PM This report has been signed electronically. Note Initiated On: 03/01/2018 1:31 PM I attest to the content of the Intraoperative Record and orders documented therein, exceptions below
--- NOTE | 2018-03-01 13:54 | [facility] Post Operative Brief Note ---
Immediate Operative Summary Operative Date Mar 01, 2018. Pre-Operative Diagnosis abdominal pain and elevated liver tests Post-Operative Diagnosis Mild gastritis Dilated Common bile duct Procedure(s) Performed Upper Gastrointestinal Endoscopy, Upper Endoscopic Ultrasonography Surgeon Dr. Kellogg Apartment Leasing Specialist Surgeon(s) none Estimated Blood Loss 0 ml Findings Consistent with Post-Op Diagnosis Specimens 1) gastric biopsies Drains None Anesthesia Type General Complication(s) none Disposition Accompanied Pt To Recover: no Disposition: Recovery Room / PACU
--- NOTE | 2018-03-01 13:57 | Discharge Instructions ---
Endoscopy Patient Instructions Date / Procedure(s) Performed Mar 01, 2018. EGD, Other (Endoscopic Ultrasound) Allergy Information Coded Allergies: Adenosine (Verified Allergy, Unknown, "pt not sure had it in er years ago ", 03/01/18) Discharge Date / Findings Mar 01, 2018. Dilated common bile duct No common duct stones seen No pancreatic mass seen dilated bile duct and pancreatic duct likely related to use of pain medications Medication Instructions Reported Home Medications Medications Dose Route/Sig Max Daily Dose Days Date Category Hctz (Hydrochlorothiazide) 25 Mg Tab 1 Tab PO DAILY 30 03/01/18 Reported Ventolin Hfa (Albuterol) 60 Puffs/5400 Mcg Aers 2 Puffs INH Q6H PRN 02/23/18 Reported Senna-Tabs (Sennosides) 8.6 Mg Tab 8.6 Mg PO QAM 02/23/18 Reported Roxicodone Ir (Oxycodone HCl) 5 Mg Tab 5 Mg PO Q4H PRN 02/23/18 Reported Miralax (Polyethylene Glycol 3350) 1 Pow Pow 17 Gm PO BID 02/23/18 Reported Zestril (Lisinopril) 20 Mg Tab 20 Mg PO BID 02/23/18 Reported Lasix (Furosemide) 20 Mg Tab 20 Mg PO QAM 02/23/18 Reported Fentanyl 12 Mcg Tdsy 12 Mcg TOP Q72HRS 02/23/18 Reported Eliquis (Apixaban) 5 Mg Tab 5 Mg PO BID 02/23/18 Reported Cordarone (Amiodarone Hcl) 200 Mg Tab 200 Mg PO QAM 02/23/18 Reported Colace (Docusate Sodium) 100 Mg Cap 200 Mg PO BID 02/09/18 Reported Zofran Odt (Ondansetron HCl) 4 Mg Tab 4 Mg SL Q6H PRN 02/09/18 Reported Vitamin D (Cholecalciferol) 1,000 Unit Tab 2,000 Inter.unit PO QAM 05/08/17 Reported Aspirin 81 (Aspirin) 81 Mg Tab 81 Mg PO QAM 05/08/17 Reported Neurontin (Gabapentin) 100 Mg Cap 200 Mg PO TID 04/16/17 Reported Lipitor (Atorvastatin) 40 Mg Tab 40 Mg PO HS 04/30/16 Reported Provider Instructions Activity Restrictions - No exercising or heavy lifting for 24 hours. - Do not drink alcohol the day of the procedure. - Do not drive a car or operate machinery until the day after the procedure. - Do not make any important decisions or sign important papers in 24 hours after the procedure. Following Day: - Return to full activity which may include returning to work/school. Diet Start your diet with liquids and light foods (jello, soup, juice, toast). Then eat your usual diet if not nauseated. Treatment For Common After Affects For mild abdominal pain, bloating, or excessive gas: - Rest - Eat lightly - Lie on right side Follow-Up Information Follow-up with Dr. Redman as scheduled Follow-up with Gastroenterology as needed. Anesthesia Information What You Should Know You have had a procedure that required some medicine to reduce anxiety and discomfort. This treatment is called moderate sedation. After receiving the treatment, you may be sleepy, but you will be able to breathe on your own. The effects of the treatment may last for several hours. Follow these instructions along with Activity/Diet recommendations noted above: * Do NOT do anything where dizziness or clumsiness would be dangerous. * Rest quietly at home today, then you can be up and about tomorrow. * Have a responsible person stay with you the rest of today. * You may have had an I.V. today. If so, you may take the dressing off later today. Recommendations Call your doctor if: * Trouble breathing * Continuous vomiting for more than 24 hours * Temperature above 101 degrees * Severe abdominal pain or bloating * Pain not relieved by pain medicine ordered * There is increased drainage or redness from any incision * A large amount of rectal bleeding greater than 2-3 tablespoons. (If you had a polyp/s removed or have hemorrhoids, a small amount of blood - from the rectum is to be expected.) * You have any unanswered questions or concerns. IN THE EVENT OF A SERIOUS EMERGENCY, GO TO THE NEAREST EMERGENCY ROOM Your discharge instructions were prepared by provider Fouzia Kellogg. Patient Instructions Signature Page Tati Davalos Patient (or Guardian) Signature/Date: I have read and understand the instructions given to me by my caregivers. Caregiver/RN/Doctor Signature/Date: The above-named patient and/or guardian has received patient instructions on this date. + Original Patient Signature Page (only) stays with chart. Please make copy for patient.
[2018-03-01] MEDS ORDERED: ONDANSETRON INJ 2 MG/ML 2 ML VIAL IV PRN (14:00)
[2018-03-01 14:48] VITALS: BP 174/74; PULSE 67; TEMP 36.5; O2SAT 96
--- NOTE | 2018-03-01 15:02 | Anesthesiology Progress Note ---
Anesthesia Post Op Note Date & Time Mar 01, 2018 at 15:01 Vital Signs Pain Intensity: 0 Vital Signs Past 12 Hours Date Time Temp Pulse Resp B/P (MAP) Pulse Ox O2 Delivery O2 Flow Rate FiO2 03/01/18 14:48 36.5 67 18 174/74 96 Room Air 03/01/18 14:40 36.8 67 16 173/60 95 Room Air 03/01/18 14:30 66 16 171/60 95 Room Air 03/01/18 14:20 63 16 157/60 100 Oxymask 10 03/01/18 14:10 63 16 178/60 100 Oxymask 10 03/01/18 14:01 36.4 65 16 169/57 100 Oxymask 10 03/01/18 11:46 37.3 60 18 190/63 (105) 95 Room Air Notes Mental Status: alert / awake / arousable, participated in evaluation Pt Amnestic to Procedure: Yes Nausea / Vomiting: adequately controlled Pain: adequately controlled Airway Patency, RR, SpO2: stable & adequate BP & HR: stable & adequate Hydration State: stable & adequate Anesthetic Complications: no major complications apparent
[2018-03-01 15:15] VITALS: BP 187/80; PULSE 65; O2SAT 97
[2018-03-01 16:32] LABS: ALBUMIN 3.2 gm/dl (3.4-5.0); CALCIUM 8.7 mg/dl (8.5-10.1); CREATININE 0.89 mg/dl (0.60-1.20); TOTAL PROTEIN 7.1 gm/dl (6.4-8.2)
== END 2018-03-01 16:01 ==
LOC: C.ACU 11:03
PROVIDERS: ATTEND Internal Medicine Gastroenterology
DX: R10.13 Epigastric pain (principal); K29.50 Unspecified chronic gastritis without bleeding; I48.91 Unspecified atrial fibrillation; M19.90 Unspecified osteoarthritis, unspecified site; Z95.0 Presence of cardiac pacemaker; J45.909 Unspecified asthma, uncomplicated; E78.00 Pure hypercholesterolemia, unspecified; I10 Essential (primary) hypertension; F32.9 Major depressive disorder, single episode, unspecified; I25.2 Old myocardial infarction; K21.9 Gastro-esophageal reflux disease without esophagitis; Z96.652 Presence of left artificial knee joint; Z79.899 Other long term (current) drug therapy; Z79.01 Long term (current) use of anticoagulants; Z79.82 Long term (current) use of aspirin

== ENCOUNTER 2018-04-07 11:22 | Emergency (ER) | payer BC ==
[~2018-04-07 11:22] MED LIST changes: -AMOX875T PO; -ATROPINE SULFATE 0.1 MG/ML 5ML SYR IV PRN; -EpHEDrine SULFATE INJ 50 MG/ML AMP IV PRN; -FENTANYL CITRATE INJ 50 MCG/1 ML 2 ML VIAL IV PRN; +HYDR25TA4 PO; -HYDROmorphone INJ 0.5 MG/0.5 ML SYR IV PRN; -LABETALOL HCL IV 5 MG/ML 20ML IV PRN; -LACTATED RINGER'S 1000ML 1,000 ML IV SCH; -MEPERIDINE HCL 25 MG/ML CARP IV PRN; -ONDANSETRON INJ 2 MG/ML 2 ML VIAL IV PRN
[2018-04-07 11:27] VITALS: TEMP 36.7
--- NOTE | 2018-04-07 12:19 | EMERGENCY ROOM VISIT NOTE ---
History Report prepared by Felisa: Abiel Montoya Under the Supervision of: Dr. Francisco Javier Fisher M.D. First contact with patient: 12:05 Chief Complaint: OTHER COMPLAINT Stated Complaint: HARD TO BREATH/JUST DOESNT FEEL RIGHT History of Present Illness The patient is an 88 year old female with a history of a heart attack with stent placement, a stroke, and atrial fibrillation who presents to the Emergency Room with complaints of persistent weakness over the past couple days. Per the patient's daughter, the patient has been having worsening shortness of breath, and episodes when she "cannot talk" and is "not together". The patient also spikes headaches occasionally. These episodes are noted to last around 15 minutes each time. The patient was at the pain clinic earlier today, and they were concerned because of the patient's symptoms, and the fact that the patient had a blood pressure of 88/32 at the clinic. She notes that she had an episode of the symptoms when she was at the clinic. The patient says that she has no history of anxiety or panic attacks. She denies any chest pain, fevers, chills, cough, congestion, runny nose, nausea, vomiting, diarrhea, or urinary symptoms. The patient's daughter says that the patient has chronic leg swelling, and the swelling has not worsened recently. She is on Eliquis. Per the patient's daughter, the patient has an "old defibrillator" in her that is "not working". The patient notes that she has an abdominal aortic aneurysm that her doctors watch. The patient says that she has no residual deficits from the stroke. She notes that she has not had any testing done since the symptoms started. Source of History: patient, family Onset: Past couple days Position: other (global) Quality: other (weakness) Timing: other (persistent) Associated Symptoms: + headache, + SOB, No fevers, No chills, No cough, No chest pain, No nausea, No vomiting, No diarrhea, No urinary symptoms Note: Associated symptoms: Episodes of not being able to talk and being not together. Low blood pressure in clinic. Denies congestion, worsening leg swelling, runny nose. Review of Systems See HPI for pertinent positives and negatives. A total of ten systems were reviewed and were otherwise negative. 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 (10) Chest pain (11) Chest pain at rest (12) Chronic arthralgias of knees and hips (13) ESOPHAGEAL REFLUX (14) HYPERLIPIDEMIA NEC/NOS (15) HYPERTENSION NOS (16) Intractable back pain (17) Nausea and vomiting (18) OLD MYOCARDIAL INFARCT (19) PERIPH VASCULAR DIS NOS (20) Severe hypertension (21) Thoracic spinal stenosis Surgical Problems: (1) S/P laminectomy Family History Cancer (breast, uterine) Myocardial infarction Parkinson's disease Social History Smoking Status: Never Smoker Alcohol Use: none Drug Use: none Marital Status: single Housing Status: lives with family Occupation Status: retired Current/Historical Medications Scheduled Amiodarone Hcl (Cordarone), 200 MG PO QAM Apixaban (Eliquis), 5 MG PO BID Aspirin (Aspirin 81), 81 MG PO QAM Atorvastatin (Lipitor), 40 MG PO HS Cholecalciferol (Vitamin D), 2,000 INTER.UNIT PO QAM Docusate Sodium (Colace), 200 MG PO BID Doxycycline Monohydrate (Monodox), 100 MG PO BID Fentanyl (Fentanyl), 12 MCG TOP Q72HRS Furosemide (Lasix), 20 MG PO QAM Gabapentin (Neurontin), 200 MG PO TID Hydrochlorothiazide (Hctz), 1 TAB PO DAILY Lisinopril (Zestril), 20 MG PO BID Polyethylene Glycol 3350 (Miralax), 17 GM PO BID Sennosides (Senna-Tabs), 8.6 MG PO QAM Scheduled PRN Albuterol (Ventolin Hfa), 2 PUFFS INH Q6H PRN for RN Ondasetron Odt (Zofran Odt), 4 MG SL Q6H PRN for Nausea Oxycodone Ir (Roxicodone Ir), 5 MG PO Q4H PRN for Severe Pain Allergies Coded Allergies: Adenosine (Verified Allergy, Unknown, "pt not sure had it in er years ago ", 04/07/18) Physical Exam Vital Signs Date Time Temp Pulse Resp B/P (MAP) Pulse Ox O2 Delivery O2 Flow Rate FiO2 04/07/18 16:05 67 18 173/73 96 Room Air 04/07/18 15:34 63 20 181/60 100 Room Air 04/07/18 14:33 59 18 167/57 96 Room Air 04/07/18 14:03 59 18 181/65 94 Room Air 04/07/18 12:33 96 Room Air 04/07/18 12:21 60 04/07/18 11:27 36.7 63 18 134/61 97 Room Air Physical Exam GENERAL: Awake, alert, fatigued-appearing, in no distress HENT: Normocephalic, atraumatic. Dry mucous membranes. EYES: Normal conjunctiva. Sclera non-icteric. NECK: Supple. No nuchal rigidity. FROM. No JVD. RESPIRATORY: Clear to auscultation. CARDIAC: Regular rate, normal rhythm. Extremities warm and well perfused. Pulses equal. ABDOMEN: Soft, non-distended. No tenderness to palpation. No rebound or guarding. No masses. RECTAL: Deferred. MUSCULOSKELETAL: Chest examination reveals no tenderness. The back is symmetrical on inspection without obvious abnormality. There is no CVA tenderness to palpation. No joint edema. LOWER EXTREMITIES: Calves are equal size bilaterally and non-tender. 2+ lower extremity edema. No discoloration. NEURO: Normal sensorium. No sensory or motor deficits noted. Normal cerebellar function with [id number]. SKIN: No rash or jaundice noted. Medical Decision & Procedures ER Provider Diagnostic Interpretation: Radiology results as stated below per my review and radiologist interpretation: CHEST ONE VIEW PORTABLE CLINICAL HISTORY: 88 years-old Female presenting with CHEST PAIN. TECHNIQUE: Portable upright AP view of the chest was obtained. COMPARISON: 02/13/2018. FINDINGS: Right subclavian pacer with lead to the right atrium. Atherosclerosis of aortic arch. Cardiac silhouette enlarged. Evidence of coronary artery calcification or stent. No focal opacity. No large effusion or pneumothorax. Severe degenerative changes of the bilateral glenohumeral joints with suggestion of chronic rotator cuff tear on the right. Degenerative changes of the spine. Surgical clip projects over the epigastrium. IMPRESSION: 1. Cardiomegaly. No other convincing evidence of acute cardiopulmonary disease. Electronically signed by: Hector Cervantes M.D. 04/07/2018 12:44 PM Dictated Date/Time: 04/07/2018 12:43 PM CHEST COMBO ANGIO DISSECTION HISTORY: 88 years-old Female acute near syncopal event with history of abdominal aortic aneurysm COMPARISON: CTA abdomen and pelvis of same day, CT abdomen and pelvis 02/09/2018. TECHNIQUE: CTA of the chest was obtained both with and without the use of IV contrast. 93 mL Optiray 320 IV contrast was administered. 3-D coronal and sagittal MIPS were obtained from the axial data set and were submitted for review. All measurements were obtained according to NASCET criteria. A dose lowering technique was used consistent with the principals of RUBI. FINDINGS: CTA CHEST: The noncontrast scan demonstrates no intramural hematoma. There is diffuse dilation of the proximal abdominal aorta superior to the level of the renal arteries, 3.5 x 3.5 cm in AP and transverse dimension, unchanged from comparison study 02/09/2018. Advanced mixed atheromatous and atherosclerotic plaquing of the aorta. Note is made of a bovine aortic arch with the left common carotid artery emanating from the innominate artery. The imaged great vessels appear to be patent. There is tortuosity of the right common carotid artery. No thoracic aortic dissection or aneurysm. Fusiform dilation of the descending thoracic aorta measures up to 3.5 x 3.0 cm. Pulmonary arterial tree is opacified to level of the subsegmental branches and demonstrates no focal filling defects to suggest pulmonary thromboembolic disease. There is mild multichamber cardiac enlargement with coronary arterial calcifications. Dense calcifications of the mitral and aortic annulus also noted. Right pectoral pacer is noted with single lead overlying the right atrium. CT CHEST: 10 mm low attenuating lesion of the right thyroid lobe. Mildly prominent 9 mm subcarinal lymph node is indeterminate. There is no pneumothorax. Small left and trace right pleural effusions are noted with dependent subsegmental consolidation. Focal irregular consolidative opacity with central air bronchograms involves the apical segment right upper lobe, 2.1 x 2.6 cm on image 53 of series 7. Additionally, there is a focal groundglass opacity of the apical right upper lobe measuring 11 x 7 mm on image 78 of series 7. Mild bronchial wall thickening of the bilateral lungs. No acute process of the imaged upper abdomen. Mild cortical thinning about the bilateral kidneys. Soft tissues are within normal limits. Bones appear intact. Severe degenerative changes about the shoulders and spine. IMPRESSION: 1. Mild fusiform dilation of the descending thoracic aorta measuring up to 3.5 cm with fusiform dilation of the proximal abdominal aorta measuring up to 3.5 cm. No evidence of aortic dissection or evidence of pulmonary thromboembolic disease. 2. 2.6 cm irregular consolidative opacity of the apical segment right upper lobe is concerning for pneumonia or alternatively adenocarcinoma of the lung can present similarly. Follow-up imaging to document resolution is needed. Additional smaller groundglass and consolidative opacities are also noted within the apical segment right upper lobe. 3. Small left and trace right pleural effusions. 4. Mild bilateral bronchial wall thickening may reflect bronchitis. 5. Additional findings as above. The above report was generated using voice recognition software. It may contain grammatical, syntax or spelling errors. Electronically signed by: Alvin Presley M.D. 04/07/2018 2:54 PM Dictated Date/Time: 04/07/2018 2:37 PM ANGIO ABD/PELVIS WITH CONTRAST CLINICAL HISTORY: 88 years-old Female presenting with history of abdominal aortic aneurysm, difficulty breathing, near syncope. TECHNIQUE: Multidetector CT angiography of the abdomen and pelvis was performed after the administration of intravenous contrast. 3-D volumetric and/or maximum intensity projection (MIP) images were subsequently reconstructed for review. IV contrast: 93 mL of Optiray 320. A dose lowering technique was used consistent with the principles of ALARA (as low as reasonably achievable). Stenosis measurements were based on NASCET-like criteria. COMPARISON: 02/09/2018. CT DOSE (mGy.cm): The estimated cumulative dose is 695.96 mGy.cm. FINDINGS: Drop Wire Operator topogram: Right subclavian pacer with single lead to the right atrium. Cardiomegaly. IVC filter projects at the level of L3. Vasculature: Significant atherosclerosis. Mild aneurysmal dilatation of the aorta at the level of the aortic hiatus measuring up to 3.5 cm in diameter. Redemonstration of the infrarenal abdominal aortic aneurysm measuring 4.1 cm, previously 4.1 cm when remeasured at a comparable level. Prominence mural thrombus or noncalcified atherosclerotic plaque. No evidence of a penetrating ulcer, dissection, or rupture. Celiac axis patent. Conventional hepatic arterial anatomy. Up to 50% stenosis of the origin of the superior mesenteric artery. The remainder is widely patent. Atherosclerotic plaque at the origins of the bilateral single renal arteries does not significantly narrow the lumen. Bilateral common, external, and internal iliac arteries widely patent and normal in caliber. Infrarenal IVC filter in place. Evaluation for patency of the IVC cannot be assessed given the phase of contrast. Remaining abdomen and pelvis: Lung bases: Minimal basilar opacities, likely atelectasis. Dependent consolidation and volume loss in the left lower lobe at the lung base likely passive atelectasis in the setting of a small left pleural effusion. Trace right pleural effusion. Mitral annular and coronary artery calcification. No pericardial effusion. Liver: Normal morphology. No liver lesion allowing for arterial phase of contrast. Biliary: Mild biliary ductal prominence likely a reservoir effect in the post cholecystectomy state. Gallbladder surgically absent. Pancreas: Moderate parenchymal atrophy. Mild prominence of the pancreatic duct without evidence of obstructing mass or calculus, grossly unchanged. Spleen: Normal. Adrenal glands: Normal. Kidneys and ureters: Cortical thinning suggested. No nephrolithiasis. Extrarenal pelvises. No hydronephrosis. Ureters normal. Bladder: Normal. Pelvic organs: Uterus surgically absent. No adnexal masses. Bowel: Moderate stool burden in the mildly distended rectum. Moderate stool burden also noted throughout the colon. Diverticulosis of the mid sigmoid colon without pericolonic inflammatory change. No bowel obstruction. Peritoneal cavity: No free fluid or intraperitoneal gas. Lymph nodes: No enlarged lymph nodes in the abdomen or pelvis. Abdominal wall: Normal. Musculoskeletal: Degenerative changes of the spine. Laminectomy changes in the lumbar spine. Osteopenia. IMPRESSION: 1. Stable appearance of the abdominal aorta with aneurysmal dilatation at the level of the aortic hiatus and infrarenal portion, measuring up to 4.1 cm in diameter, previously 4.1 cm. 2. Small left pleural effusion with suspected extensive left basilar passive atelectasis. 3. Findings suggest constipation. Electronically signed by: Hector Cervantes M.D. 04/07/2018 2:48 PM Dictated Date/Time: 04/07/2018 2:37 PM Laboratory Results 04/07/18 11:50 Red Blood Count 3.98, Mean Corpuscular Volume 90.5, Mean Corpuscular Hemoglobin 28.6, Mean Corpuscular Hemoglobin Concent 31.7, Mean Platelet Volume 9.2, Neutrophils (%) (Auto) 64.3, Lymphocytes (%) (Auto) 21.9, Monocytes (%) (Auto) 9.1, Eosinophils (%) (Auto) 4.0, Basophils (%) (Auto) 0.5, Neutrophils # (Auto) 4.05, Lymphocytes # (Auto) 1.38, Monocytes # (Auto) 0.57, Eosinophils # (Auto) 0.25, Basophils # (Auto) 0.03 04/07/18 11:50 Test 04/07/18 11:43 04/07/18 11:50 04/07/18 13:30 Bedside Glucose 92 mg/dl (70-90) White Blood Count 6.29 K/uL (4.8-10.8) Red Blood Count 3.98 M/uL (4.2-5.4) Hemoglobin 11.4 g/dL (12.0-16.0) Hematocrit 36.0 % (37-47) Mean Corpuscular Volume 90.5 fL (80-100) Mean Corpuscular Hemoglobin 28.6 pg (25-34) Mean Corpuscular Hemoglobin Concent 31.7 g/dl (32-36) Platelet Count 274 K/uL (130-400) Mean Platelet Volume 9.2 fL (7.4-10.4) Neutrophils (%) (Auto) 64.3 % Lymphocytes (%) (Auto) 21.9 % Monocytes (%) (Auto) 9.1 % Eosinophils (%) (Auto) 4.0 % Basophils (%) (Auto) 0.5 % Neutrophils # (Auto) 4.05 K/uL (1.4-6.5) Lymphocytes # (Auto) 1.38 K/uL (1.2-3.4) Monocytes # (Auto) 0.57 K/uL (0.11-0.59) Eosinophils # (Auto) 0.25 K/uL (0-0.5) Basophils # (Auto) 0.03 K/uL (0-0.2) RDW Standard Deviation 48.1 fL (36.4-46.3) RDW Coefficient of Variation 14.6 % (11.5-14.5) Immature Granulocyte % (Auto) 0.2 % Immature Granulocyte # (Auto) 0.01 K/uL (0.00-0.02) Anion Gap 5.0 mmol/L (3-11) Estimated GFR () 59.8 Estimated GFR (Non- 51.6 BUN/Creatinine Ratio 23.8 (10-20) Calcium Level 8.4 mg/dl (8.5-10.1) Magnesium Level 2.1 mg/dl (1.8-2.4) Total Bilirubin 0.3 mg/dl (0.2-1) Direct Bilirubin < 0.1 mg/dl (0-0.2) Aspartate Amino Transf (AST/SGOT) 21 U/L (15-37) Alanine Aminotransferase (ALT/SGPT) 18 U/L (12-78) Alkaline Phosphatase 98 U/L (45-117) Troponin I < 0.015 ng/ml (0-0.045) Pro-B-Type Natriuretic Peptide 1148 pg/ml (0-1800) Total Protein 7.1 gm/dl (6.4-8.2) Albumin 3.0 gm/dl (3.4-5.0) Lipase 91 U/L (73-393) Thyroid Stimulating Hormone (TSH) 2.340 uIu/ml (0.300-4.500) Urine Color YELLOW Urine Appearance CLEAR (CLEAR) Urine pH 5.0 (4.5-7.5) Urine Specific [place] 1.015 (1.000-1.030) Urine Protein NEG (NEG) Urine Glucose (UA) NEG (NEG) Urine Ketones NEG (NEG) Urine Occult Blood NEG (NEG) Urine Nitrite NEG (NEG) Urine Bilirubin NEG (NEG) Urine Urobilinogen NEG (NEG) Urine Leukocyte Esterase TRACE (NEG) Urine WBC (Auto) 1-5 /hpf (0-5) Urine RBC (Auto) 0-4 /hpf (0-4) Urine Hyaline Casts (Auto) 1-5 /lpf (0-5) Urine Epithelial Cells (Auto) 10-20 /lpf (0-5) Urine Bacteria (Auto) NEG (NEG) Laboratory results reviewed by me Medications Administered Medications (Trade) Dose Ordered Sig/Yifan Route Start Time Stop Time Status Last Admin Dose Admin Gabapentin (Neurontin Tab) 200 mg NOW STAT PO 04/07/18 14:58 04/07/18 14:59 DC 04/07/18 15:24 200 MG Albuterol/ Ipratropium (Duoneb) 3 ml NOW STAT INH 04/07/18 15:13 04/07/18 15:16 DC 04/07/18 15:24 3 ML Dexamethasone Sodium Phosphate (Dexamethasone Inj Pf) 10 mg NOW ONCE IV 04/07/18 15:15 04/07/18 15:16 DC 04/07/18 15:24 10 MG Doxycycline Hyclate (Vibramycin Cap) 100 mg ONE STAT PO 04/07/18 15:13 04/07/18 15:16 DC 04/07/18 15:24 100 MG Sodium Chloride 500 ml @ 999 mls/hr Q31M STAT IV 04/07/18 15:13 04/07/18 15:43 DC 04/07/18 15:24 999 MLS/HR ECG Per My Interpretation Indication: SOB/dyspnea Rate (beats per minute): 57 Rhythm: sinus bradycardia Findings: no acute ischemic change, other (normal axis) ED Course 1209: The patient was evaluated in room B11B. A complete history and physical exam was performed. 1458: Neurontin Tab 200 mg PO. 1513: NSS 500 ml @ 999 mls/hr IV, Vibramycin Cap 100 mg PO, DuoNeb 3 ml INH. 1515: Dexamethasone Inj 10 mg IV. 1605: I reevaluated the patient and she is ready to go home. Discussed results and discharge instructions: she verbalized understanding and agreement. The patient is ready for discharge. Medical Decision I reviewed the patient's past medical history, medications, and the nursing notes as described above. Differential diagnosis: Etiologies such as infections, reactive airway disease, pneumonia, pneumothorax , COPD, CHF, cardiac ischemia, pulmonary embolism, musculoskeletal, gastrointestinal, as well as others were entertained. The patient is an 88 y/o woman with a pmhx of AAA, CAD s/p stent, afib on Eliquis who presents to the emergency department with intermittent episodes of SOB, confusion, and weakness with associated low blood pressure per HPI. On arrival the patient is fatigue appearing but in NAD, AFVSS. Appears clinically dry. EKG unremarkable. Labs unremarkable including WBC, troponin, and BNP wnl. BUN/Cr > 20 suggesting mild dehydration. CTA of chest, abd/pel demonstrates no acute aortic pathology. However, incidentally demonstrates RUL with consolidative opacity with ddx of pna vs adnenocardinoma. Findings aortic and pulmonary CT findings d/w the patient and daughter and while the patient denies f/c, she does report having had a dry cough. Thus, we agree to trial treatment for PNA/bronchitis with doxycycline. Given dexamethasone and duoneb with IVF and feeling improved. Plan for prompt pcp f/u for re-evaluation and possible additional testing. Findings and plan for follow-up reviewed with patient. Patient agreeable and d/c'd per discharge instructions. Medication Reconcilliation Current Medication List: was personally reviewed by me Blood Pressure Screening Patient's blood pressure: Elevated blood pressure Blood pressure disposition: Elevated BP felt to be situational Impression Primary Impression: Pneumonia Additional Impression: Dehydration Scribe Attestation The scribe's documentation has been prepared under my direction and personally reviewed by me in its entirety. I confirm that the note above accurately reflects all work, treatment, procedures, and medical decision making performed by me. Departure Information Dispostion Home / Self-Care Prescriptions Doxycycline Monohydrate (Monodox) 100 Mg Cap 100 MG PO BID for 7 Days, #14 CAP Prov: Francisco Javier Fisher M.D. 04/07/18 Referrals Alexei Redman M.D. (PCP) Patient Instructions ED Pneumonia Adult, [facility] Additional Instructions Please follow up with your primary care physician in the next 1-3 days for re- evaluation. You symptoms may possibly be related to pneumonia/bronchitis as well as mild dehydration. Otherwise, your exam, EKG, chest xray, lab, CT scan of your aorta results did not show signs of an emergent condition at this time. Doxycycline as directed. Use your inhaler Albuterol every 4 hours for the next 48 hours and then as needed thereafter. Ensure hydration. Return to the emergency department for worsening symptoms as described in the accompanying instructions. Problem Qualifiers
[2018-04-07 12:24] LABS: BASO % 0.5 %; BASO ABS # 0.03 K/uL (0-0.2); EOS ABS # 0.25 K/uL (0-0.5); HEMOGLOBIN 11.4 g/dL (12.0-16.0); IG# 0.01 K/uL (0.00-0.02); LYMPH % 21.9 %; LYMPH ABS # 1.38 K/uL (1.2-3.4); MEAN CELL VOLUME 90.5 fL (80-100); MEAN CORPUSCULAR HEMOGLOBIN 28.6 pg (25-34); MEAN CORPUSCULAR HGB CONC 31.7 g/dl (32-36); MEAN PLATELET VOLUME 9.2 fL (7.4-10.4); MONO % 9.1 %; MONO ABS # 0.57 K/uL (0.11-0.59); NEUT % 64.3 %; NEUT ABS # 4.05 K/uL (1.4-6.5); PLATELET COUNT 274 K/uL (130-400); RED CELL DISTRIBUTION WIDTH CV 14.6 % (11.5-14.5); RED CELL DISTRIBUTION WIDTH SD 48.1 fL (36.4-46.3); WHITE BLOOD COUNT 6.29 K/uL (4.8-10.8)
[2018-04-07] MEDS ORDERED: OPTIRAY 320 IV PRN (12:30)
[2018-04-07 12:33] VITALS: O2SAT 96
[2018-04-07 12:39] LABS: AST/SGOT 21 U/L (15-37); BLOOD UREA NITROGEN 24 mg/dl (7-18); CALCIUM 8.4 mg/dl (8.5-10.1); CARBON DIOXIDE 28 mmol/L (21-32); CREATININE 0.99 mg/dl (0.60-1.20); GLUCOSE 76 mg/dl (70-99); LIPASE 91 U/L (73-393); POTASSIUM 4.3 mmol/L (3.5-5.1); SODIUM 141 mmol/L (136-145)
--- NOTE | 2018-04-07 12:45 | DIAGNOSTIC IMAGING REPORT ---
CHEST ONE VIEW PORTABLE CLINICAL HISTORY: 88 years-old Female presenting with CHEST PAIN. TECHNIQUE: Portable upright AP view of the chest was obtained. COMPARISON: 02/13/2018. FINDINGS: Right subclavian pacer with lead to the right atrium. Atherosclerosis of aortic arch. Cardiac silhouette enlarged. Evidence of coronary artery calcification or stent. No focal opacity. No large effusion or pneumothorax. Severe degenerative changes of the bilateral glenohumeral joints with suggestion of chronic rotator cuff tear on the right. Degenerative changes of the spine. Surgical clip projects over the epigastrium. IMPRESSION: 1. Cardiomegaly. No other convincing evidence of acute cardiopulmonary disease. Electronically signed by: Hector Cervantes M.D. 04/07/2018 12:44 PM Dictated Date/Time: 04/07/2018 12:43 PM
[2018-04-07 12:50] LABS: ALKALINE PHOSPHATASE 98 U/L (45-117); ALT/SGPT 18 U/L (12-78); TOTAL PROTEIN 7.1 gm/dl (6.4-8.2)
--- NOTE | 2018-04-07 14:50 | DIAGNOSTIC IMAGING REPORT ---
ANGIO ABD/PELVIS WITH CONTRAST CLINICAL HISTORY: 88 years-old Female presenting with history of abdominal aortic aneurysm, difficulty breathing, near syncope. TECHNIQUE: Multidetector CT angiography of the abdomen and pelvis was performed after the administration of intravenous contrast. 3-D volumetric and/or maximum intensity projection (MIP) images were subsequently reconstructed for review. IV contrast: 93 mL of Optiray 320. A dose lowering technique was used consistent with the principles of ALARA (as low as reasonably achievable). Stenosis measurements were based on NASCET-like criteria. COMPARISON: 02/09/2018. CT DOSE (mGy.cm): The estimated cumulative dose is 695.96 mGy.cm. FINDINGS: Rehabilitator topogram: Right subclavian pacer with single lead to the right atrium. Cardiomegaly. IVC filter projects at the level of L3. Vasculature: Significant atherosclerosis. Mild aneurysmal dilatation of the aorta at the level of the aortic hiatus measuring up to 3.5 cm in diameter. Redemonstration of the infrarenal abdominal aortic aneurysm measuring 4.1 cm, previously 4.1 cm when remeasured at a comparable level. Prominence mural thrombus or noncalcified atherosclerotic plaque. No evidence of a penetrating ulcer, dissection, or rupture. Celiac axis patent. Conventional hepatic arterial anatomy. Up to 50% stenosis of the origin of the superior mesenteric artery. The remainder is widely patent. Atherosclerotic plaque at the origins of the bilateral single renal arteries does not significantly narrow the lumen. Bilateral common, external, and internal iliac arteries widely patent and normal in caliber. Infrarenal IVC filter in place. Evaluation for patency of the IVC cannot be assessed given the phase of contrast. Remaining abdomen and pelvis: Lung bases: Minimal basilar opacities, likely atelectasis. Dependent consolidation and volume loss in the left lower lobe at the lung base likely passive atelectasis in the setting of a small left pleural effusion. Trace right pleural effusion. Mitral annular and coronary artery calcification. No pericardial effusion. Liver: Normal morphology. No liver lesion allowing for arterial phase of contrast. Biliary: Mild biliary ductal prominence likely a reservoir effect in the post cholecystectomy state. Gallbladder surgically absent. Pancreas: Moderate parenchymal atrophy. Mild prominence of the pancreatic duct without evidence of obstructing mass or calculus, grossly unchanged. Spleen: Normal. Adrenal glands: Normal. Kidneys and ureters: Cortical thinning suggested. No nephrolithiasis. Extrarenal pelvises. No hydronephrosis. Ureters normal. Bladder: Normal. Pelvic organs: Uterus surgically absent. No adnexal masses. Bowel: Moderate stool burden in the mildly distended rectum. Moderate stool burden also noted throughout the colon. Diverticulosis of the mid sigmoid colon without pericolonic inflammatory change. No bowel obstruction. Peritoneal cavity: No free fluid or intraperitoneal gas. Lymph nodes: No enlarged lymph nodes in the abdomen or pelvis. Abdominal wall: Normal. Musculoskeletal: Degenerative changes of the spine. Laminectomy changes in the lumbar spine. Osteopenia. IMPRESSION: 1. Stable appearance of the abdominal aorta with aneurysmal dilatation at the level of the aortic hiatus and infrarenal portion, measuring up to 4.1 cm in diameter, previously 4.1 cm. 2. Small left pleural effusion with suspected extensive left basilar passive atelectasis. 3. Findings suggest constipation. Electronically signed by: Hector Cervantes M.D. 04/07/2018 2:48 PM Dictated Date/Time: 04/07/2018 2:37 PM
--- NOTE | 2018-04-07 14:55 | DIAGNOSTIC IMAGING REPORT ---
CHEST COMBO ANGIO DISSECTION HISTORY: 88 years-old Female acute near syncopal event with history of abdominal aortic aneurysm COMPARISON: CTA abdomen and pelvis of same day, CT abdomen and pelvis 02/09/2018. TECHNIQUE: CTA of the chest was obtained both with and without the use of IV contrast. 93 mL Optiray 320 IV contrast was administered. 3-D coronal and sagittal MIPS were obtained from the axial data set and were submitted for review. All measurements were obtained according to NASCET criteria. A dose lowering technique was used consistent with the principals of RUBI. FINDINGS: CTA CHEST: The noncontrast scan demonstrates no intramural hematoma. There is diffuse dilation of the proximal abdominal aorta superior to the level of the renal arteries, 3.5 x 3.5 cm in AP and transverse dimension, unchanged from comparison study 02/09/2018. Advanced mixed atheromatous and atherosclerotic plaquing of the aorta. Note is made of a bovine aortic arch with the left common carotid artery emanating from the innominate artery. The imaged great vessels appear to be patent. There is tortuosity of the right common carotid artery. No thoracic aortic dissection or aneurysm. Fusiform dilation of the descending thoracic aorta measures up to 3.5 x 3.0 cm. Pulmonary arterial tree is opacified to level of the subsegmental branches and demonstrates no focal filling defects to suggest pulmonary thromboembolic disease. There is mild multichamber cardiac enlargement with coronary arterial calcifications. Dense calcifications of the mitral and aortic annulus also noted. Right pectoral pacer is noted with single lead overlying the right atrium. CT CHEST: 10 mm low attenuating lesion of the right thyroid lobe. Mildly prominent 9 mm subcarinal lymph node is indeterminate. There is no pneumothorax. Small left and trace right pleural effusions are noted with dependent subsegmental consolidation. Focal irregular consolidative opacity with central air bronchograms involves the apical segment right upper lobe, 2.1 x 2.6 cm on image 53 of series 7. Additionally, there is a focal groundglass opacity of the apical right upper lobe measuring 11 x 7 mm on image 78 of series 7. Mild bronchial wall thickening of the bilateral lungs. No acute process of the imaged upper abdomen. Mild cortical thinning about the bilateral kidneys. Soft tissues are within normal limits. Bones appear intact. Severe degenerative changes about the shoulders and spine. IMPRESSION: 1. Mild fusiform dilation of the descending thoracic aorta measuring up to 3.5 cm with fusiform dilation of the proximal abdominal aorta measuring up to 3.5 cm. No evidence of aortic dissection or evidence of pulmonary thromboembolic disease. 2. 2.6 cm irregular consolidative opacity of the apical segment right upper lobe is concerning for pneumonia or alternatively adenocarcinoma of the lung can present similarly. Follow-up imaging to document resolution is needed. Additional smaller groundglass and consolidative opacities are also noted within the apical segment right upper lobe. 3. Small left and trace right pleural effusions. 4. Mild bilateral bronchial wall thickening may reflect bronchitis. 5. Additional findings as above. The above report was generated using voice recognition software. It may contain grammatical, syntax or spelling errors. Electronically signed by: Alvin Presley M.D. 04/07/2018 2:54 PM Dictated Date/Time: 04/07/2018 2:37 PM
[2018-04-07] MEDS ORDERED: GABAPENTIN 600 MG TAB PO STA (14:58)
[2018-04-07] MEDS ORDERED: ALBUT/IPRATROP 3MG/0.5MG NEB 3 ML VIAL INH STA (15:13)
[2018-04-07] MEDS ORDERED: DOXYCYCLINE HYCLATE 100 MG CAP PO STA (15:13)
[2018-04-07] MEDS ORDERED: SODIUM CHLORIDE 0.9% 500ML 500 ML IV STA (15:13)
[2018-04-07] MEDS ORDERED: DEXAMETHASONE **PF** INJ 10 MG/ML VIAL IV ONE (15:15)
[2018-04-07] MEDS ORDERED: DOXY100C76 PO (15:47)
[2018-04-07 16:05] VITALS: BP 173/73; PULSE 67; O2SAT 96
== END 2018-04-07 16:29 | disposition home or self-care (01) ==
LOC: C.EDB 11:25
DX: J18.9 Pneumonia, unspecified organism (principal); E86.0 Dehydration; I48.91 Unspecified atrial fibrillation; Z79.01 Long term (current) use of anticoagulants; E78.5 Hyperlipidemia, unspecified; R60.0 Localized edema; I10 Essential (primary) hypertension; Z79.82 Long term (current) use of aspirin; Z86.79 Personal history of other diseases of the circulatory system; Z88.8 Allergy status to other drugs, medicaments and biological substances

== ENCOUNTER 2018-06-21 12:05 | Inpatient (IN) | payer BC, OTHER ==
[~2018-06-21] VITALS: Ht 154.9 cm; Wt 67.6 kg
[~2018-06-21 12:05] MED LIST changes: +OXYC-90 PO; -OXYC1TAB3 PO
--- NOTE | 2018-06-21 12:50 | EMERGENCY ROOM VISIT NOTE ---
History Report prepared by Felisa: Aj Guajardo Under the Supervision of: Dr. Bon Levy M.D. First contact with patient: 12:24 Chief Complaint: WEAKNESS Stated Complaint: GENERALIZED WEAKNESS History of Present Illness The patient is an 88 year old white female with a past medical history of an AAA , a-fib, asthma, carotid artery occlusion, GERD, HLD, HTN, NV, peripheral vascular disease, thoracic spinal stenosis who presents the ED with a cc of constant weakness to her extremities beginning at 430pm yesterday. Positive taking Eliquis, chronic right leg weakness secondary to trauma, visual hallucinations. Negative nausea, vomiting, chest pain, cough, recent antibiotic use, trouble eating or drinking, being outside for too long, burning with urination, pain with urination, missing her medications. She reports she sees people and items that she knows is not real. Pt states she was hospitalized three months ago for similar symptoms. She reports she lives with her daughter. Pt notes she requires 1L of oxygen at night. Source of History: patient Onset: 430pm yesterday Position: arm (bilateral), leg (bilateral) Quality: other (weakness) Timing: constant Associated Symptoms: No cough, No chest pain, No nausea, No vomiting Note: Positive visual hallucinations Denies: recent antibiotic use, trouble eating or drinking, being outside for too long, burning with urination, pain with urination, missing her medications Review of Systems See HPI for pertinent positives and negatives. A total of ten systems were reviewed and were otherwise negative. 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 (10) Chest pain (11) Chest pain at rest (12) Chronic arthralgias of knees and hips (13) ESOPHAGEAL REFLUX (14) HYPERLIPIDEMIA NEC/NOS (15) HYPERTENSION NOS (16) Intractable back pain (17) Nausea and vomiting (18) OLD MYOCARDIAL INFARCT (19) PERIPH VASCULAR DIS NOS (20) Severe hypertension (21) Thoracic spinal stenosis Surgical Problems: (1) S/P laminectomy Family History Cancer (breast, uterine) Myocardial infarction Parkinson's disease Social History Smoking Status: Never Smoker Alcohol Use: none Drug Use: none Marital Status: single Housing Status: lives with family Occupation Status: retired Current/Historical Medications Scheduled Amiodarone Hcl (Cordarone), 200 MG PO QAM Apixaban (Eliquis), 5 MG PO BID Aspirin (Aspirin 81), 81 MG PO QAM Atorvastatin (Lipitor), 40 MG PO HS Cholecalciferol (Vitamin D), 2,000 INTER.UNIT PO QAM Docusate Sodium (Colace), 200 MG PO BID Fentanyl (Fentanyl), 12 MCG TOP Q72HRS Furosemide (Lasix), 20 MG PO QAM Lisinopril (Zestril), 20 MG PO BID Polyethylene Glycol 3350 (Miralax), 17 GM PO BID Sennosides (Senna-Tabs), 8.6 MG PO QAM Scheduled PRN Albuterol (Ventolin Hfa), 2 PUFFS INH Q6H PRN for RN Ondasetron Odt (Zofran Odt), 4 MG SL Q6H PRN for Nausea Oxycodone Ir (Roxicodone Ir), 5 MG PO Q4H PRN for Severe Pain Allergies Coded Allergies: Adenosine (Verified Allergy, Unknown, "pt not sure had it in er years ago ", 06/21/18) Physical Exam Vital Signs Date Time Temp Pulse Resp B/P (MAP) Pulse Ox O2 Delivery O2 Flow Rate FiO2 06/21/18 18:35 67 06/21/18 18:06 77 209/104 98 Nasal Cannula 2.0 06/21/18 17:32 68 18 183/85 97 Nasal Cannula 2.0 06/21/18 16:30 64 18 165/58 97 Room Air 06/21/18 15:45 70 16 187/72 98 Nasal Cannula 2.0 06/21/18 14:05 98 20 98 06/21/18 14:02 118/86 06/21/18 13:37 96 17 118/66 94 Nasal Cannula 06/21/18 13:35 98 20 97 06/21/18 13:35 88 Room Air 06/21/18 13:32 118/66 06/21/18 13:06 99 06/21/18 13:05 88 29 83 06/21/18 13:02 150/57 06/21/18 12:35 64 18 97 7/25/18 12:32 160/68 06/21/18 12:23 37.0 77 14 199/86 93 Room Air 06/21/18 12:16 69 06/21/18 12:14 93 Room Air 06/21/18 12:08 199/86 Physical Exam GENERAL: Awake, alert, well-appearing, NAD. NC in place. HENT: Normocephalic, atraumatic. EYES: Normal conjunctiva. Sclera non-icteric. PERRL. No anisocoria. NECK: Supple. No nuchal rigidity. FROM. RESPIRATORY: CTAB, no rhonchi, wheezing, crackles CARDIAC: RRR, no MRG ABDOMEN: Soft, NTND, BS+ MSK: No chest wall TTP, no LE edema NEURO: GCS 15, CN 2-12 intact, moves all 4s on command SKIN: No rash or jaundice noted. PSYCH: Negative SI and HI. No active visual hallucinations. Medical Decision & Procedures ER Provider Diagnostic Interpretation: Radiology results as stated below per my review and radiologist interpretation: CHEST ONE VIEW PORTABLE HISTORY: 88 years-old Female weakness acute weakness COMPARISON: Chest radiograph 04/07/2018, CTA chest 04/07/2018 TECHNIQUE: Portable AP view of the chest FINDINGS: Cardiac silhouette is enlarged. Calcification of the aorta. Right subclavian pacer appears intact. There is no pneumothorax. Small left pleural effusion with subsegmental bibasilar opacities. Coronary arterial stent graft noted. Degenerative changes of the spine and shoulders. IMPRESSION: 1. Cardiomegaly without overt pulmonary edema. 2. Small left pleural effusion with subsegmental bibasilar opacities suggesting atelectasis. The above report was generated using voice recognition software. It may contain grammatical, syntax or spelling errors. Electronically signed by: Alvin Presley M.D. 06/21/2018 4:43 PM Dictated Date/Time: 06/21/2018 4:[address]AST CT DOSE: 638.56 mGycm HISTORY: hallucinations TECHNIQUE: Multiaxial CT images of the head were performed without the use of intravenous contrast. Automated exposure control was utilized for this study. A dose lowering technique was utilized adhering to the principles of ALARA. Comparison: Head CT 02/09/2018. Findings: The paranasal sinuses and mastoid air cells are clear. The calvarium and skull base are intact. There is no mass, hematoma, midline shift, acute infarct. White matter hypodensity is nonspecific but suggestive of microvascular ischemic change. The ventricles and sulci demonstrate mild age-related involutional changes. Old small left posterior parietal infarct. This remains unchanged. Impression: No significant change compared to the prior study. No acute intracranial abnormality. Electronically signed by: Darren Livingston M.D. 06/21/2018 4:57 PM Dictated Date/Time: 06/21/2018 4:52 PM Laboratory Results 06/21/18 12:20 Red Blood Count 4.54, Mean Corpuscular Volume 90.1, Mean Corpuscular Hemoglobin 27.5, Mean Corpuscular Hemoglobin Concent 30.6, Mean Platelet Volume 10.9, Neutrophils (%) (Auto) 67.7, Lymphocytes (%) (Auto) 24.4, Monocytes (%) (Auto) 6.1, Eosinophils (%) (Auto) 1.3, Basophils (%) (Auto) 0.5, Neutrophils # (Auto) 4.08, Lymphocytes # (Auto) 1.47, Monocytes # (Auto) 0.37, Eosinophils # (Auto) 0.08, Basophils # (Auto) 0.03 06/21/18 12:20 Test 06/21/18 12:20 06/21/18 13:27 White Blood Count 6.03 K/uL (4.8-10.8) Red Blood Count 4.54 M/uL (4.2-5.4) Hemoglobin 12.5 g/dL (12.0-16.0) Hematocrit 40.9 % (37-47) Mean Corpuscular Volume 90.1 fL (80-100) Mean Corpuscular Hemoglobin 27.5 pg (25-34) Mean Corpuscular Hemoglobin Concent 30.6 g/dl (32-36) Platelet Count 249 K/uL (130-400) Mean Platelet Volume 10.9 fL (7.4-10.4) Neutrophils (%) (Auto) 67.7 % Lymphocytes (%) (Auto) 24.4 % Monocytes (%) (Auto) 6.1 % Eosinophils (%) (Auto) 1.3 % Basophils (%) (Auto) 0.5 % Neutrophils # (Auto) 4.08 K/uL (1.4-6.5) Lymphocytes # (Auto) 1.47 K/uL (1.2-3.4) Monocytes # (Auto) 0.37 K/uL (0.11-0.59) Eosinophils # (Auto) 0.08 K/uL (0-0.5) Basophils # (Auto) 0.03 K/uL (0-0.2) RDW Standard Deviation 55.1 fL (36.4-46.3) RDW Coefficient of Variation 16.7 % (11.5-14.5) Immature Granulocyte % (Auto) 0.0 % Immature Granulocyte # (Auto) 0.00 K/uL (0.00-0.02) Prothrombin Time 11.2 SECONDS (9.0-12.0) Prothromb Time International Ratio 1.1 (0.9-1.1) Activated Partial Thromboplast Time 26.4 SECONDS (21.0-31.0) Partial Thromboplastin Ratio 1.0 Anion Gap 7.0 mmol/L (3-11) Est Creatinine Clear Calc Drug Dose 50.0 ml/min Estimated GFR () 89.4 Estimated GFR (Non- 77.1 BUN/Creatinine Ratio 19.9 (10-20) Calcium Level 8.9 mg/dl (8.5-10.1) Magnesium Level 2.1 mg/dl (1.8-2.4) Total Bilirubin 0.4 mg/dl (0.2-1) Direct Bilirubin 0.2 mg/dl (0-0.2) Aspartate Amino Transf (AST/SGOT) 23 U/L (15-37) Alanine Aminotransferase (ALT/SGPT) 18 U/L (12-78) Alkaline Phosphatase 77 U/L (45-117) Troponin I < 0.015 ng/ml (0-0.045) Total Protein 7.3 gm/dl (6.4-8.2) Albumin 3.3 gm/dl (3.4-5.0) Lipase 73 U/L (73-393) Thyroid Stimulating Hormone (TSH) 1.620 uIu/ml (0.300-4.500) Urine Color YELLOW Urine Appearance CLEAR (CLEAR) Urine pH 6.5 (4.5-7.5) Urine Specific [place] 1.015 (1.000-1.030) Urine Protein NEG (NEG) Urine Glucose (UA) NEG (NEG) Urine Ketones NEG (NEG) Urine Occult Blood NEG (NEG) Urine Nitrite NEG (NEG) Urine Bilirubin NEG (NEG) Urine Urobilinogen NEG (NEG) Urine Leukocyte Esterase NEG (NEG) Laboratory results reviewed by me Medications Administered Medications (Trade) Dose Ordered Sig/Yifan Route Start Time Stop Time Status Last Admin Dose Admin Sodium Chloride 500 ml @ 500 mls/hr Q1H STAT IV 06/21/18 12:56 06/21/18 13:55 DC 06/21/18 12:56 500 MLS/HR ECG Per My Interpretation Indication: weakness Rate (beats per minute): 70 Rhythm: normal sinus Findings: other (Normal intervals. Normal axis. No STS changes or TWI.) ED Course 1241: The patient was evaluated in room B08. A complete history and physical exam was performed. 1512: I reevaluated the patient and updated her of her current test results. 1624: I reevaluated the patient. I informed her psych was going to evaluate her. 1629: I asked psychiatric case management to evaluate the patient. Medical Decision The patient is an 88 year old white female with a past medical history of an AAA , a-fib, asthma, carotid artery occlusion, GERD, HLD, HTN, NV, peripheral vascular disease, thoracic spinal stenosis who presents the ED with a cc of constant weakness to her extremities beginning at 430pm yesterday. Nursing notes reviewed. Ancillary studies and prior records reviewed. Differential diagnosis: Etiologies such as metabolic, infection, hypo/hyperglycemia, electrolyte abnormalities, cardiac sources, intracerebral event, toxicologic, neurologic, as well as others were entertained. Patient was seen and evaluated the bedside. Patient does present with some generalized weakness. Patient does not have any focal neurologic deficit. Patient follows commands without issue and does appear to have symmetric strength bilaterally. Patient did have blood work completed, EKG, troponin, chest x-ray. The patient has normal white blood cell count and is not anemic. The patient has normal kidney function. Patient has a nonischemic EKG with a negative troponin. TSH is normal. Chest x-ray is clear. The further discuss the patient with the daughter at the bedside. There is some concern given the patient has been having some visual hallucinations. None are active at this time. Did review the patient's medication list with the assistance of the pharmacy staff and the patient does use oxycodone's as well as fentanyl patches which may contribute to this. We discussed this at length with the patient and daughter. I did discuss patient with the psych piano case maker who did attempt to evaluate the patient but they declined at this time. I did receive a phone call from the patient's non-relative who is power of workers compensation defense attorney and medical decision maker stated that she is concerned that the patient is unwell and unable to go home as she is deconditioned. I did have piano case maker discussed with the patient. They are setting up a referral to [facility] and the patient will need to be admitted for further evaluation, treatment, and PT and OT evaluation. Patient' s medications were ordered at this time. The patient was noted to be hypertensive but I believe this is related to the daughter who at bedside is crying as the patient's blood pressure not been abnormal when she initially arrived. Furthermore, I did order the patient's home medications as she does take antihypertensives and then in the evening which may also be contributory. I did discuss the case with the on-call hospitalist who agreed to further evaluate and treat patient. Medication Reconcilliation Current Medication List: was personally reviewed by me Blood Pressure Screening Patient's blood pressure: Normal blood pressure Blood pressure disposition: Did not require urgent referral Impression Primary Impression: Generalized weakness Additional Impressions: Risk for falls Physical deconditioning Visual hallucination Scribe Attestation The scribe's documentation has been prepared under my direction and personally reviewed by me in its entirety. I confirm that the note above accurately reflects all work, treatment, procedures, and medical decision making performed by me. Departure Information Dispostion Being Evaluated By Hospitalist Referrals Alexei Redman M.D. (PCP) Forms HOME CARE DOCUMENTATION FORM, IMPORTANT VISIT INFORMATION Patient Instructions My [facility] Problem Qualifiers
[2018-06-21] MEDS ORDERED: SODIUM CHLORIDE 0.9% 500ML 500 ML IV STA (12:56)
[2018-06-21 13:49] LABS: BASO % 0.5 %; BASO ABS # 0.03 K/uL (0-0.2); EOS % 1.3 %; EOS ABS # 0.08 K/uL (0-0.5); HEMATOCRIT 40.9 % (37-47); HEMOGLOBIN 12.5 g/dL (12.0-16.0); LYMPH % 24.4 %; LYMPH ABS # 1.47 K/uL (1.2-3.4); MEAN CELL VOLUME 90.1 fL (80-100); MEAN CORPUSCULAR HEMOGLOBIN 27.5 pg (25-34); MEAN CORPUSCULAR HGB CONC 30.6 g/dl (32-36); MEAN PLATELET VOLUME 10.9 fL (7.4-10.4); MONO % 6.1 %; MONO ABS # 0.37 K/uL (0.11-0.59); NEUT % 67.7 %; NEUT ABS # 4.08 K/uL (1.4-6.5); PLATELET COUNT 249 K/uL (130-400); RED CELL DISTRIBUTION WIDTH CV 16.7 % (11.5-14.5); RED CELL DISTRIBUTION WIDTH SD 55.1 fL (36.4-46.3); WHITE BLOOD COUNT 6.03 K/uL (4.8-10.8)
[2018-06-21 13:59] LABS: INR 1.1 (0.9-1.1); PTT PATIENT 26.4 SECONDS (21.0-31.0)
[2018-06-21 14:20] LABS: ALBUMIN 3.3 gm/dl (3.4-5.0); ALKALINE PHOSPHATASE 77 U/L (45-117); ALT/SGPT 18 U/L (12-78); AST/SGOT 23 U/L (15-37); BLOOD UREA NITROGEN 14 mg/dl (7-18); CALCIUM 8.9 mg/dl (8.5-10.1); CARBON DIOXIDE 31 mmol/L (21-32); CREATININE 0.71 mg/dl (0.60-1.20); GLUCOSE 82 mg/dl (70-99); LIPASE 73 U/L (73-393); SODIUM 141 mmol/L (136-145); TOTAL PROTEIN 7.3 gm/dl (6.4-8.2)
--- NOTE | 2018-06-21 16:44 | DIAGNOSTIC IMAGING REPORT ---
CHEST ONE VIEW PORTABLE HISTORY: 88 years-old Female weakness acute weakness COMPARISON: Chest radiograph 04/07/2018, CTA chest 04/07/2018 TECHNIQUE: Portable AP view of the chest FINDINGS: Cardiac silhouette is enlarged. Calcification of the aorta. Right subclavian pacer appears intact. There is no pneumothorax. Small left pleural effusion with subsegmental bibasilar opacities. Coronary arterial stent graft noted. Degenerative changes of the spine and shoulders. IMPRESSION: 1. Cardiomegaly without overt pulmonary edema. 2. Small left pleural effusion with subsegmental bibasilar opacities suggesting atelectasis. The above report was generated using voice recognition software. It may contain grammatical, syntax or spelling errors. Electronically signed by: Alvin Presley M.D. 06/21/2018 4:43 PM Dictated Date/Time: 06/21/2018 4:17 PM
--- NOTE | 2018-06-21 16:58 | DIAGNOSTIC IMAGING REPORT ---
HEAD CT NONCONTRAST CT DOSE: 638.56 mGycm HISTORY: hallucinations TECHNIQUE: Multiaxial CT images of the head were performed without the use of intravenous contrast. Automated exposure control was utilized for this study. A dose lowering technique was utilized adhering to the principles of ALARA. Comparison: Head CT 02/09/2018. Findings: The paranasal sinuses and mastoid air cells are clear. The calvarium and skull base are intact. There is no mass, hematoma, midline shift, acute infarct. White matter hypodensity is nonspecific but suggestive of microvascular ischemic change. The ventricles and sulci demonstrate mild age-related involutional changes. Old small left posterior parietal infarct. This remains unchanged. Impression: No significant change compared to the prior study. No acute intracranial abnormality. Electronically signed by: Darren Livingston M.D. 06/21/2018 4:57 PM Dictated Date/Time: 06/21/2018 4:52 PM
[2018-06-21] MEDS ORDERED: ONDANSETRON 4MG OD TAB SL PRN ×2 (18:30→22:45)
[2018-06-21] MEDS ORDERED: OXYCODONE HCL IR 5 MG TAB (IMMEDIATE RELEASE) PO PRN (18:30)
[2018-06-21] MEDS ORDERED: ALBUTEROL HFA 8 GM INHALER INH PRN ×2 (18:30→22:30)
--- NOTE | 2018-06-21 19:42 | History and Physical ---
History & Physical Date & Time of Service: Jun 21, 2018 at 19:42 Chief Complaint: Generalized Weakness Primary Care Physician: Alexei Redman M.D. History of Present Illness Source: patient, hospital records 88 yo F w/ PMHx of AAA, a-fib, asthma on 1-2 O2 at night, carotid artery occlusion, GERD, HLD, HTN, WI, peripheral vascular disease, 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 Patient reports weakness started about 4:30 pm a day ago per patient around 4: 30 pm. She felt her legs were giving out or buckling while she was in her wheel chair. She denies falling. She typically ambulated with wheel chair. She also report SOB. She typically uses 1-2 L Oxygen at night. She denies pain, numbness or tingling. She denies abdominal pain, n/v, diarrhea. She denies chest pain sob , palpitation. Weakness worsened this morning and daughter decided to call 911. Patient was hypertensive on arrival at 199/86. She was placed on 2 L oxygen maintaining saturation. Patient requires supplemental oxygen at home. CBC, BMP, PT/INR, UA unremarkable. Head CT was unremarkable. CXR showed Cardiomegaly without overt pulmonary edema with Small left pleural effusion, subsegmental bibasilar opacities suggesting atelectasis. Past Medical/Surgical History PastMedHx: HTN HLD H/o ischemic CVA PAF on Eliquis CAD with h/o WI s/p stent to LAD in 2006 H/o SVT s/p pacemaker (that is now nonfunctioning) AAA Chronic pain syndrome and opioid dependence Polyneuropathy Asthma GERD rectosigmoid impaction and severe constipation dilated CBD and pancreatic duct CKD stage 3 SurgHx: cholecystectomy Back surgery x2 Left knee surgery cataract removal bilaterally Medical Problems: (1) Abdominal aortic aneurysm (2) Abnormal LFTs (3) Altered mental status (4) Ambulatory dysfunction (5) ASTHMA, UNSPECIFIED (6) ATRIAL FIBRILLATION (7) Back pain (8) Bilateral leg edema (9) Bilateral leg pain (10) CAROTID ARTERY OCCLUSION W O CEREBRAL INFARCTION (11) Change in mental status (12) Chest pain (13) Chest pain at rest (14) Chronic arthralgias of knees and hips (15) Confusion (16) CVA (cerebral vascular accident) (17) Dehydration (18) Dizziness (19) Elevated liver enzymes (20) Elevated troponin (21) ESOPHAGEAL REFLUX (22) Fluid overload (23) Headache (24) HYPERLIPIDEMIA NEC/NOS (25) Hypertension (26) HYPERTENSION NOS (27) Intractable back pain (28) Nausea (29) Nausea and vomiting (30) Near syncope (31) OLD MYOCARDIAL INFARCT (32) Pedal edema (33) PERIPH VASCULAR DIS NOS (34) Pneumonia (35) Pneumonia (36) Pneumonia (37) Rapid atrial fibrillation (38) Right sided abdominal pain (39) same (40) Severe hypertension (41) Thoracic spinal stenosis (42) Weakness (43) Weakness generalized Surgical Problems: (1) S/P laminectomy Family History Cancer (breast, uterine) Myocardial infarction Parkinson's disease Social History Smoking Status: Never Smoker Alcohol Use: none Drug Use: none Marital Status: single Housing status: lives with family Occupational Status: retired Immunizations History of Influenza Vaccine: Unknown History of Tetanus Vaccine?: Unknown History of Pneumococcal: Unknown History of Hepatitis B Vaccine: Unknown Allergies Coded Allergies: Adenosine (Verified Allergy, Unknown, "pt not sure had it in er years ago ", 06/21/18) Home Medications Scheduled Amiodarone Hcl (Cordarone), 200 MG PO QAM Apixaban (Eliquis), 5 MG PO BID Aspirin (Aspirin 81), 81 MG PO QAM Atorvastatin (Lipitor), 40 MG PO HS Cholecalciferol (Vitamin D), 2,000 INTER.UNIT PO QAM Docusate Sodium (Colace), 200 MG PO BID Fentanyl (Fentanyl), 12 MCG TOP Q72HRS Furosemide (Lasix), 20 MG PO QAM Lisinopril (Zestril), 20 MG PO BID Polyethylene Glycol 3350 (Miralax), 17 GM PO BID Sennosides (Senna-Tabs), 8.6 MG PO QAM Scheduled PRN Albuterol (Ventolin Hfa), 2 PUFFS INH Q6H PRN for RN Ondasetron Odt (Zofran Odt), 4 MG SL Q6H PRN for Nausea Oxycodone Ir (Roxicodone Ir), 5 MG PO Q4H PRN for Severe Pain Review of Systems Constitutional: + weakness, No fever, No chills Respiratory: No cough, No shortness of breath Cardiovascular: No chest pain, No edema, No palpitations Abdomen: No pain, No nausea, No vomiting Musculoskeletal: No swelling, No calf pain Genitourinary - Female: No dysuria, No urinary frequency, No urinary urgency Neurologic: + weakness, No numbness/tingling, No vertigo Physical Exam Vital Signs Date Time Temp Pulse Resp B/P (MAP) Pulse Ox O2 Delivery O2 Flow Rate FiO2 06/21/18 19:07 66 18 99 Nasal Cannula 2.0 06/21/18 19:02 188/69 06/21/18 18:37 64 11 100 Nasal Cannula 2.0 06/21/18 18:35 67 06/21/18 18:34 201/79 06/21/18 18:08 209/104 06/21/18 18:07 77 21 98 Nasal Cannula 2.0 06/21/18 18:06 77 209/104 98 Nasal Cannula 2.0 06/21/18 17:32 68 18 183/85 97 Nasal Cannula 2.0 06/21/18 16:30 64 18 165/58 97 Room Air 06/21/18 15:45 70 16 187/72 98 Nasal Cannula 2.0 06/21/18 14:05 98 20 98 06/21/18 14:02 118/86 06/21/18 13:37 96 17 118/66 94 Nasal Cannula 06/21/18 13:35 98 20 97 06/21/18 13:35 88 Room Air 06/21/18 13:32 118/66 06/21/18 13:06 99 06/21/18 13:05 88 29 83 06/21/18 13:02 150/57 06/21/18 12:35 64 18 97 06/21/18 12:32 160/68 06/21/18 12:23 37.0 77 14 199/86 93 Room Air 06/21/18 12:16 69 06/21/18 12:14 93 Room Air 06/21/18 12:08 199/86 GENERAL: alert, no distress, non-toxic EYE EXAM: normal conjunctiva, PERRL and EOM's grossly intact OROPHARYNX: no exudate, no erythema, lips, buccal mucosa, and tongue normal and mucous membranes are moist NECK: supple, no nuchal rigidity, no adenopathy, non-tender LUNGS: Clear to auscultation. Normal chest wall mechanics HEART: no murmurs, S1 normal and S2 normal ABDOMEN: abdomen soft, non-tender, normo-active bowel sounds, no masses, no rebound or guarding. SKIN: no rashes and no bruising UPPER EXTREMITIES: upper extremities are grossly normal. LOWER EXTREMITIES: No pitting edema. NEURO EXAM: Normal sensorium, cranial nerves II-XII grossly intact, normal speech Diagnostics Laboratory Results Results Past 24 Hours Test 06/21/18 12:20 06/21/18 13:27 Range/Units White Blood Count 6.03 4.8-10.8 K/uL Red Blood Count 4.54 4.2-5.4 M/uL Hemoglobin 12.5 12.0-16.0 g/dL Hematocrit 40.9 37-47 % Mean Corpuscular Volume 90.1 80-100 fL Mean Corpuscular Hemoglobin 27.5 25-34 pg Mean Corpuscular Hemoglobin Concent 30.6 32-36 g/dl Platelet Count 249 130-400 K/uL Mean Platelet Volume 10.9 7.4-10.4 fL Neutrophils (%) (Auto) 67.7 % Lymphocytes (%) (Auto) 24.4 % Monocytes (%) (Auto) 6.1 % Eosinophils (%) (Auto) 1.3 % Basophils (%) (Auto) 0.5 % Neutrophils # (Auto) 4.08 1.4-6.5 K/uL Lymphocytes # (Auto) 1.47 1.2-3.4 K/uL Monocytes # (Auto) 0.37 0.11-0.59 K/uL Eosinophils # (Auto) 0.08 0-0.5 K/uL Basophils # (Auto) 0.03 0-0.2 K/uL RDW Standard Deviation 55.1 36.4-46.3 fL RDW Coefficient of Variation 16.7 11.5-14.5 % Immature Granulocyte % (Auto) 0.0 % Immature Granulocyte # (Auto) 0.00 0.00-0.02 K/uL Prothrombin Time 11.2 9.0-12.0 SECONDS Prothromb Time International Ratio 1.1 0.9-1.1 Activated Partial Thromboplast Time 26.4 21.0-31.0 SECONDS Partial Thromboplastin Ratio 1.0 Sodium Level 141 136-145 mmol/L Potassium Level 4.0 3.5-5.1 mmol/L Chloride Level 103 98-107 mmol/L Carbon Dioxide Level 31 21-32 mmol/L Anion Gap 7.0 3-11 mmol/L Blood Urea Nitrogen 14 7-18 mg/dl Creatinine 0.71 0.60-1.20 mg/dl Est Creatinine Clear Calc Drug Dose 50.0 ml/min Estimated GFR () 89.4 Estimated GFR (Non- 77.1 BUN/Creatinine Ratio 19.9 10-20 Random Glucose 82 70-99 mg/dl Calcium Level 8.9 8.5-10.1 mg/dl Magnesium Level 2.1 1.8-2.4 mg/dl Total Bilirubin 0.4 0.2-1 mg/dl Direct Bilirubin 0.2 0-0.2 mg/dl Aspartate Amino Transf (AST/SGOT) 23 15-37 U/L Alanine Aminotransferase (ALT/SGPT) 18 12-78 U/L Alkaline Phosphatase 77 45-117 U/L Troponin I < 0.015 0-0.045 ng/ml Total Protein 7.3 6.4-8.2 gm/dl Albumin 3.3 3.4-5.0 gm/dl Lipase 73 73-393 U/L Thyroid Stimulating Hormone (TSH) 1.620 0.300-4.500 uIu/ml Urine Color YELLOW Urine Appearance CLEAR CLEAR Urine pH 6.5 4.5-7.5 Urine Specific Justin 1.015 1.000-1.030 Urine Protein NEG NEG Urine Glucose (UA) NEG NEG Urine Ketones NEG NEG Urine Occult Blood NEG NEG Urine Nitrite NEG NEG Urine Bilirubin NEG NEG Urine Urobilinogen NEG NEG Urine Leukocyte Esterase NEG NEG Microbiology Results 06/21/18 Urine Culture, Received Pending Impression Assessment and Plan 88 yo F w/ PMHx of AAA, a-fib, asthma on 1-2 O2 at night, carotid artery occlusion, GERD, HLD, HTN, WI, peripheral vascular disease, 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 Patient was hypertensive on arrival at /86. She was placed on 2 L oxygen maintaining saturation. Patient requires supplemental oxygen at home. CBC, BMP, PT/INR, UA unremarkable. Head CT was unremarkable. CXR showed Cardiomegaly without overt pulmonary edema with Small left pleural effusion, subsegmental bibasilar opacities suggesting atelectasis. Generalized Weakness - requires Wheelchair at baseline - neurological exam unremarkable, no focal deficits, Head CT negative - afebrile, normotensive, CBC, BMP, TSH UA unremarkable - probably deconditioning given baseline ambulatory dysfunction, medication induced, also considered PMR and ordered ESR, RAVI - PT /OT ordered CAD, AAA, HTN Afib, H/o CVA - Continue Amiodarone, Eliquis - Continue Aspirin, Statin - Continue Lisinopril Chronic pain - held Oxycodone IR Chronic constipation - miralax, senna, Colace DVT PPX on Eliquis Code status: FULL Disposition: Admit to Med/Surg -Will likely need assessment for placement per ED physician discussion with family members PT/OT Attending addendum: I have physically seen this patient, have supervised the medical residents activities, and agree with the H&P unless as otherwise noted. Assessment and Plan: Generalized weakness-- Workup negative including vital signs, laboratories and CT of head. Consult PT/OT. Will likely require stay at retirement and/or inpatient rehab. CAD/hypertension/atrial fibrillation/cerebrovascular disease/AAA-- Continue all current medications including amiodarone, Eliquis, aspirin and lisinopril. Other medications and orders as noted above. Advanced Directives Existing Advance Directive: Yes Resuscitation Status VTE Prophylaxis Will order VTE Prophylaxis: Yes Note Total Time: Critical Care 30 - 74 minutes Resident Tracking Resident Involvement: Resident Care Provided Care Provided: Adult Hospital Medicine
[2018-06-21] MEDS ORDERED: HEPARIN SOD 5000 UNIT/0.5 ML CARP SQ SCH (20:15)
[2018-06-21] MEDS ORDERED: MAGNESIUM HYDROXIDE SUSP 30 ML UDC PO PRN (20:15)
[2018-06-21] MEDS ORDERED: POLYETHYLENE (MIRALAX) 17 GM PACK PO PRN (20:15)
[2018-06-21] MEDS ORDERED: ONDANSETRON INJ 2 MG/ML 2 ML VIAL IV PRN (20:15)
[2018-06-21] MEDS ORDERED: ALUMINUM/MAGNESIUM/SIMETH (MAALOX MAX) 30 ML UDC PO PRN (20:15)
[2018-06-21] MEDS ORDERED: IV FLUIDS COMPLETED PRN (21:00)
[2018-06-21] MEDS: DOCUSATE SODIUM 100 MG CAP PO SCH (21:00)
[2018-06-21] MEDS ORDERED: LISINOPRIL 20 MG TAB PO SCH (21:00)
[2018-06-21] MEDS ORDERED: APIXABAN 5 MG TAB PO SCH (21:00)
[2018-06-21] MEDS ORDERED: DOCUSATE SODIUM 100 MG CAP PO SCH ×2 (21:00)
[2018-06-21] MEDS ORDERED: ATORVASTATIN 20 MG TAB PO SCH (21:00)
[2018-06-21 22:45] VITALS: BP 186/78; TEMP 36.3; Ht 154.9 cm; Wt 67.6 kg
[2018-06-21] MEDS: CHECK FENTANYL PATCH PLACEMENT SCH (23:11)
[2018-06-21 23:19] VITALS: BP 186/78; PULSE 67; TEMP 36.3; O2SAT 99
[2018-06-22] VITALS (8 sets, daily range): BP systolic 139–219; BP diastolic 72–89; PULSE 69–75; TEMP 36.6; O2SAT 96–99
[2018-06-22 06:15] LABS: BASO % 0.3 %; BASO ABS # 0.02 K/uL (0-0.2); EOS % 1.2 %; EOS ABS # 0.07 K/uL (0-0.5); HEMATOCRIT 40.8 % (37-47); HEMOGLOBIN 12.3 g/dL (12.0-16.0); IG# 0.01 K/uL (0.00-0.02); LYMPH % 26.2 %; LYMPH ABS # 1.59 K/uL (1.2-3.4); MEAN CELL VOLUME 89.5 fL (80-100); MEAN CORPUSCULAR HGB CONC 30.1 g/dl (32-36); MEAN PLATELET VOLUME 9.9 fL (7.4-10.4); MONO % 8.1 %; MONO ABS # 0.49 K/uL (0.11-0.59); PLATELET COUNT 200 K/uL (130-400); RED CELL DISTRIBUTION WIDTH CV 16.5 % (11.5-14.5); RED CELL DISTRIBUTION WIDTH SD 53.9 fL (36.4-46.3); WHITE BLOOD COUNT 6.08 K/uL (4.8-10.8)
[2018-06-22 06:42] LABS: CALCIUM 8.8 mg/dl (8.5-10.1); CREATININE 0.54 mg/dl (0.60-1.20); POTASSIUM 4.2 mmol/L (3.5-5.1)
[2018-06-22] MEDS: DOCUSATE SODIUM 100 MG CAP PO SCH ×2 (07:16→20:17)
[2018-06-22] MEDS: LISINOPRIL 20 MG TAB PO SCH ×2 (07:16→20:55)
[2018-06-22] MEDS: SENNA 8.6 MG TAB PO SCH (07:17)
[2018-06-22] MEDS: CHOLECALCIFEROL 1000 INTER.UNIT TAB PO SCH (07:17)
[2018-06-22] MEDS: APIXABAN 5 MG TAB PO SCH ×2 (07:18→20:17)
[2018-06-22] MEDS: ASPIRIN 81 MG ECTAB PO SCH (07:18)
[2018-06-22] MEDS: FUROSEMIDE 20 MG TAB PO SCH (07:18)
[2018-06-22] MEDS: AMIODARONE 200 MG TAB PO SCH (07:19)
[2018-06-22] MEDS: POLYETHYLENE (MIRALAX) 17 GM PACK PO SCH ×2 (07:19→20:16)
[2018-06-22] MEDS: CHECK FENTANYL PATCH PLACEMENT SCH ×3 (07:20→22:45)
[2018-06-22] MEDS ORDERED: FENTANYL PATCH REMOVE & WASTE SCH (08:59)
[2018-06-22] MEDS ORDERED: FENTANYL 12 MCG/HR TDSY TD SCH (09:00)
[2018-06-22] MEDS ORDERED: AMIODARONE 200 MG TAB PO SCH (09:00)
[2018-06-22] MEDS ORDERED: SENNA 8.6 MG TAB PO SCH (09:00)
[2018-06-22] MEDS ORDERED: CHOLECALCIFEROL 1000 INTER.UNIT TAB PO SCH (09:00)
[2018-06-22] MEDS ORDERED: ASPIRIN 81 MG ECTAB PO SCH (09:00)
[2018-06-22] MEDS ORDERED: FUROSEMIDE 20 MG TAB PO SCH (09:00)
[2018-06-22] MEDS: AMLODIPINE BESYLATE 5 MG TAB PO SCH (09:30)
[2018-06-22] MEDS: FENTANYL 25 MCG/HR TDSY TD SCH (11:22)
[2018-06-22] MEDS: FENTANYL PATCH REMOVE & WASTE SCH (11:22)
--- NOTE | 2018-06-22 14:25 | Progress Note ---
Subjective Date of Service: Jun 22, 2018. Subjective Pt evaluation today including: conversation w/ patient, conversation w/ family (daughter), physical exam, lab review, conversation w/ nurse consultant, review of inpatient medication list Pain: no pain PO Intake: adequate Voiding: no voiding problems patient laying in bed, asked her how she was feeling stated that "she just wanted to go to psychiatric hospital" she denied any pain, just admitted to the weakness, could not get around in her wheelchair like normal said she had been eating, no issues moving bowels or urinating discussed with patient's daughter over the phone she reported that the patient's blood pressure was never high in the 180's or 190's like it had been in fact, she said that her doctor was titrating Lisinopril back due to some low blood pressures BP was repeated in afternoon after Norvasc 10mg given, was down to 130's systolic discussed code status with patient after her comment about wanting to go to psychiatric hospital asked her if she would want CPR or shocked if her heart would stop, she said no changed to DNR reviewed labs, CBC and BMP normal, ESR slightly high, troponin negative Problem List Medical Problems: (1) Bilateral leg pain Status: Acute (2) Change in mental status Status: Acute (3) Confusion Status: Acute (4) CVA (cerebral vascular accident) Status: Acute (5) Dizziness Status: Acute (6) Elevated liver enzymes Status: Acute (7) Elevated troponin Status: Acute (8) Fluid overload Status: Acute (9) Generalized weakness Status: Acute (10) Headache Status: Acute (11) Hypertension Status: Acute (12) Nausea Status: Acute (13) Near syncope Status: Acute (14) Pedal edema Status: Acute (15) Physical deconditioning Status: Acute (16) Pneumonia Status: Acute (17) Pneumonia Status: Acute (18) Rapid atrial fibrillation Status: Acute (19) Right sided abdominal pain Status: Acute (20) Risk for falls Status: Acute (21) Visual hallucination Status: Acute (22) Weakness Status: Acute (23) Weakness generalized Status: Acute Review of Systems Constitutional: + weakness, + fatigue Neurologic: + weakness Psychiatric: + depression symptoms All Other Systems: Reviewed and Negative Medications Current Inpatient Medications Medications (Trade) Dose Ordered Sig/Yifan Route Start Time Stop Time Status Last Admin Dose Admin Acetaminophen (Tylenol Tab) 650 mg Q4H PRN PO 7/25/18 20:15 07/21/18 20:14 Al Hydrox/Mg Hydrox/Simethicone (Maalox Max Susp) 15 ml Q4H PRN PO 06/21/18 20:15 07/21/18 20:14 Magnesium Hydroxide (Milk Of Magnesia Susp) 30 ml Q6H PRN PO 06/21/18 20:15 07/21/18 20:14 Polyethylene (Miralax Powder Packet) 17 gm DAILY PRN PO 06/21/18 20:15 07/21/18 20:14 Ondansetron HCl (Zofran Inj) 4 mg Q6H PRN IV 06/21/18 20:15 07/21/18 20:14 Miscellaneous (Iv Fluids Completed) 1 ea PRN PRN N/A 06/21/18 21:00 06/21/19 20:59 Albuterol (Ventolin Hfa Inhaler) 2 puffs Q6H PRN INH 06/21/18 22:30 07/21/18 22:29 Amiodarone HCl (Cordarone Tab) 200 mg QAM PO 06/22/18 09:00 07/22/18 08:59 06/22/18 07:19 200 MG Apixaban (Eliquis) 5 mg BID PO 06/22/18 09:00 07/22/18 08:59 06/22/18 07:18 5 MG Aspirin (Ecotrin Tab) 81 mg QAM PO 06/22/18 09:00 07/22/18 08:59 06/22/18 07:18 81 MG Atorvastatin Calcium (Lipitor Tab) 40 mg HS PO 06/22/18 21:00 07/22/18 20:59 Cholecalciferol (Vitamin D Tab) 2,000 inter.unit QAM PO 06/22/18 09:00 07/22/18 08:59 06/22/18 07:17 2,000 INTER.UNIT Docusate Sodium (coLACE CAP) 200 mg BID PO 06/21/18 21:00 07/21/18 20:59 06/22/18 07:16 200 MG Furosemide (Lasix Tab) 20 mg QAM PO 06/22/18 09:00 07/22/18 08:59 06/22/18 07:18 20 MG Lisinopril (Zestril Tab) 20 mg BID PO 06/22/18 09:00 07/22/18 08:59 06/22/18 07:16 20 MG Ondansetron HCl (Zofran Odt) 4 mg Q6H PRN SL 06/21/18 22:45 07/21/18 22:44 Polyethylene (Miralax Powder Packet) 17 gm BID PO 06/22/18 09:00 07/22/18 08:59 06/22/18 07:19 17 GM Senna (Senokot Tab) 8.6 mg QAM PO 06/22/18 09:00 07/22/18 08:59 06/22/18 07:17 8.6 MG Amlodipine Besylate (Norvasc Tab) 10 mg QAM PO 06/22/18 09:00 07/22/18 08:59 06/22/18 09:30 10 MG Fentanyl (Duragesic Patch) 25 mcg Q72H TD 06/22/18 11:00 07/06/18 10:59 06/22/18 11:22 25 MCG Miscellaneous (Fentanyl Patch Remove & Waste) 1 ea Q3D N/A 06/22/18 10:59 07/22/18 10:58 06/22/18 11:22 1 EA Miscellaneous Information (Check Fentanyl Patch Placement) 1 ea QS N/A 06/22/18 16:00 07/22/18 15:59 Objective Vital Signs Date Time Temp Pulse Resp B/P (MAP) Pulse Ox O2 Delivery O2 Flow Rate FiO2 06/22/18 11:13 189/76 (113) 06/22/18 09:13 188/76 (113) 06/22/18 08:16 197/72 (113) 06/22/18 08:00 97 Room Air 06/22/18 07:28 36.6 75 18 219/89 (132) 97 Room Air 06/22/18 03:35 99 Nasal Cannula 2.0 06/21/18 23:19 36.3 67 18 186/78 (114) 99 Nasal Cannula 2.0 06/21/18 22:45 36.3 18 186/78 Nasal Cannula 2.0 06/21/18 21:41 62 14 211/67 99 06/21/18 21:01 200/87 06/21/18 20:47 64 19 99 Nasal Cannula 2.0 06/21/18 20:32 198/62 06/21/18 20:17 64 15 99 Nasal Cannula 2.0 06/21/18 20:12 69 12 97 Nasal Cannula 2.0 06/21/18 20:01 201/60 06/21/18 19:42 65 10 96 Nasal Cannula 2.0 06/21/18 19:31 188/65 06/21/18 19:12 68 13 99 Nasal Cannula 2.0 06/21/18 19:07 66 18 99 Nasal Cannula 2.0 06/21/18 19:02 188/69 06/21/18 18:37 64 11 100 Nasal Cannula 2.0 06/21/18 18:35 67 06/21/18 18:34 201/79 06/21/18 18:08 209/104 06/21/18 18:07 77 21 98 Nasal Cannula 2.0 06/21/18 18:06 77 209/104 98 Nasal Cannula 2.0 06/21/18 17:32 68 18 183/85 97 Nasal Cannula 2.0 06/21/18 16:30 64 18 165/58 97 Room Air 06/21/18 15:45 70 16 187/72 98 Nasal Cannula 2.0 Physical Exam General Appearance: WD/WN, no apparent distress Eyes: normal inspection, EOMI, sclerae normal ENT: normal ENT inspection, hearing grossly normal, pharynx normal Neck: supple, no adenopathy, no JVD, trachea midline Respiratory/Chest: chest non-tender, lungs clear, normal breath sounds, no respiratory distress, no accessory muscle use Cardiovascular: regular rate, rhythm, no edema, no gallop, no JVD, no murmur Abdomen: normal bowel sounds, non tender, soft, no organomegaly Extremities: normal range of motion, non-tender, normal inspection, no pedal edema, no calf tenderness, pelvis stable Neurologic/Psychiatric: patient admitting clerk II-XII nml as tested, alert, normal mood/affect, oriented x 3, + motor weakness Skin: normal color, warm/dry, no rash Laboratory Results Last 24 Hours Test 06/22/18 05:59 06/22/18 10:42 White Blood Count 6.08 K/uL Red Blood Count 4.56 M/uL Hemoglobin 12.3 g/dL Hematocrit 40.8 % Mean Corpuscular Volume 89.5 fL Mean Corpuscular Hemoglobin 27.0 pg Mean Corpuscular Hemoglobin Concent 30.1 g/dl Platelet Count 200 K/uL Mean Platelet Volume 9.9 fL Neutrophils (%) (Auto) 64.0 % Lymphocytes (%) (Auto) 26.2 % Monocytes (%) (Auto) 8.1 % Eosinophils (%) (Auto) 1.2 % Basophils (%) (Auto) 0.3 % Neutrophils # (Auto) 3.90 K/uL Lymphocytes # (Auto) 1.59 K/uL Monocytes # (Auto) 0.49 K/uL Eosinophils # (Auto) 0.07 K/uL Basophils # (Auto) 0.02 K/uL RDW Standard Deviation 53.9 fL RDW Coefficient of Variation 16.5 % Immature Granulocyte % (Auto) 0.2 % Immature Granulocyte # (Auto) 0.01 K/uL Sodium Level 144 mmol/L Potassium Level 4.2 mmol/L Chloride Level 106 mmol/L Carbon Dioxide Level 29 mmol/L Anion Gap 9.0 mmol/L Blood Urea Nitrogen 18 mg/dl Creatinine 0.54 mg/dl Est Creatinine Clear Calc Drug Dose 65.8 ml/min Estimated GFR () 99.0 Estimated GFR (Non- 85.4 BUN/Creatinine Ratio 34.0 Random Glucose 63 mg/dl Calcium Level 8.8 mg/dl Troponin I < 0.015 ng/ml Assessment and Plan 88 yo F w/ PMHx of AAA, a-fib, asthma on 1-2 O2 at night, carotid artery occlusion, GERD, HLD, HTN, PA, peripheral vascular disease, 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 Patient was hypertensive on arrival at 199/86. She was placed on 2 L oxygen maintaining saturation. Patient requires supplemental oxygen at home. CBC, BMP, PT/INR, UA unremarkable. Head CT was unremarkable. CXR showed Cardiomegaly without overt pulmonary edema with Small left pleural effusion, subsegmental bibasilar opacities suggesting atelectasis. Generalized Weakness - requires Wheelchair at baseline - neurological exam unremarkable, no focal deficits, Head CT negative - afebrile, normotensive, CBC, BMP, TSH UA unremarkable - probably deconditioning given baseline ambulatory dysfunction, medication induced, ESR slightly high, RAVI screen pending - PT /OT ordered Accelerated HTN - SBP readings in the 180-190's, never this high as outpatient - lisinopril 20mg BID - Norvasc 10mg PO given CAD, AAA, Afib, H/o CVA - Continue Amiodarone, Eliquis - Continue Aspirin, Statin Chronic pain - continue Oxycodone IR Chronic constipation - miralax, senna, Colace DVT PPX on Eliquis Code status: FULL Disposition: Admit to Med/Surg -Will likely need assessment for placement per ED physician discussion with family members PT/OT
[2018-06-22] MEDS ORDERED: HydrALAZINE HCL 20 MG/ML VIAL IV. PRN (14:30)
[2018-06-22] MEDS ORDERED: HydrALAZINE HCL 20 MG/ML VIAL IV. SCH (14:30)
[2018-06-22] MEDS: GABAPENTIN 100 MG CAP PO SCH (20:20)
[2018-06-22] MEDS: ATORVASTATIN 40 MG TAB PO SCH (20:46)
[2018-06-23] VITALS: BP 149/93; PULSE 79; TEMP 36.6; O2SAT 98
[2018-06-23 07:04] VITALS: BP 130/86; PULSE 119; TEMP 36.8; O2SAT 98
[2018-06-23] MEDS: SENNA 8.6 MG TAB PO SCH (08:16)
[2018-06-23] MEDS: POLYETHYLENE (MIRALAX) 17 GM PACK PO SCH ×2 (08:16→20:51)
[2018-06-23] MEDS: APIXABAN 5 MG TAB PO SCH ×2 (08:16→20:50)
[2018-06-23] MEDS: FUROSEMIDE 20 MG TAB PO SCH (08:17)
[2018-06-23] MEDS: ASPIRIN 81 MG ECTAB PO SCH (08:17)
[2018-06-23] MEDS: AMLODIPINE BESYLATE 5 MG TAB PO SCH (08:18)
[2018-06-23] MEDS: GABAPENTIN 100 MG CAP PO SCH ×3 (08:18→20:49)
[2018-06-23] MEDS: ACETAMINOPHEN 325 MG TAB PO PRN ×2 (08:19→13:44)
[2018-06-23] MEDS: CHECK FENTANYL PATCH PLACEMENT SCH ×3 (08:20→23:34)
[2018-06-23] MEDS: CHOLECALCIFEROL 1000 INTER.UNIT TAB PO SCH (09:20)
[2018-06-23] MEDS: AMIODARONE 200 MG TAB PO SCH (09:20)
[2018-06-23] MEDS: LISINOPRIL 20 MG TAB PO SCH ×2 (09:21→20:48)
[2018-06-23] MEDS: DOCUSATE SODIUM 100 MG CAP PO SCH ×2 (09:21→20:50)
[2018-06-23 15:55] VITALS: BP 103/65; PULSE 64; TEMP 36.6; O2SAT 94
--- NOTE | 2018-06-23 16:18 | Progress Note ---
Subjective Date of Service: Jun 23, 2018. Subjective Pt evaluation today including: conversation w/ patient, physical exam, lab review, review of inpatient medication list Pain: no pain PO Intake: adequate Voiding: no voiding problems patient resting a lot today, still feels really fatigued planning on SNF placement, discussed with case management blood pressure improved, actually low normal this afternoon at 103 systolic Problem List Medical Problems: (1) Bilateral leg pain Status: Acute (2) Change in mental status Status: Acute (3) Confusion Status: Acute (4) CVA (cerebral vascular accident) Status: Acute (5) Dizziness Status: Acute (6) Elevated liver enzymes Status: Acute (7) Elevated troponin Status: Acute (8) Fluid overload Status: Acute (9) Generalized weakness Status: Acute (10) Headache Status: Acute (11) Hypertension Status: Acute (12) Nausea Status: Acute (13) Near syncope Status: Acute (14) Pedal edema Status: Acute (15) Physical deconditioning Status: Acute (16) Pneumonia Status: Acute (17) Pneumonia Status: Acute (18) Rapid atrial fibrillation Status: Acute (19) Right sided abdominal pain Status: Acute (20) Risk for falls Status: Acute (21) Visual hallucination Status: Acute (22) Weakness Status: Acute (23) Weakness generalized Status: Acute Review of Systems Constitutional: + weakness, + fatigue Neurologic: + weakness All Other Systems: Reviewed and Negative Medications Current Inpatient Medications Medications (Trade) Dose Ordered Sig/Yifan Route Start Time Stop Time Status Last Admin Dose Admin Acetaminophen (Tylenol Tab) 650 mg Q4H PRN PO 06/21/18 20:15 07/21/18 20:14 06/23/18 13:44 650 MG Al Hydrox/Mg Hydrox/Simethicone (Maalox Max Susp) 15 ml Q4H PRN PO 06/21/18 20:15 07/21/18 20:14 Magnesium Hydroxide (Milk Of Magnesia Susp) 30 ml Q6H PRN PO 06/21/18 20:15 07/21/18 20:14 Polyethylene (Miralax Powder Packet) 17 gm DAILY PRN PO 06/21/18 20:15 07/21/18 20:14 Ondansetron HCl (Zofran Inj) 4 mg Q6H PRN IV 06/21/18 20:15 07/21/18 20:14 Miscellaneous (Iv Fluids Completed) 1 ea PRN PRN N/A 06/21/18 21:00 06/21/19 20:59 Albuterol (Ventolin Hfa Inhaler) 2 puffs Q6H PRN INH 06/21/18 22:30 07/21/18 22:29 Amiodarone HCl (Cordarone Tab) 200 mg QAM PO 06/22/18 09:00 07/22/18 08:59 06/23/18 09:20 200 MG Apixaban (Eliquis) 5 mg BID PO 06/22/18 09:00 07/22/18 08:59 06/23/18 08:16 5 MG Aspirin (Ecotrin Tab) 81 mg QAM PO 06/22/18 09:00 07/22/18 08:59 06/23/18 08:17 81 MG Atorvastatin Calcium (Lipitor Tab) 40 mg HS PO 06/22/18 21:00 07/22/18 20:59 06/22/18 20:46 40 MG Cholecalciferol (Vitamin D Tab) 2,000 inter.unit QAM PO 06/22/18 09:00 07/22/18 08:59 06/23/18 09:20 2,000 INTER.UNIT Docusate Sodium (coLACE CAP) 200 mg BID PO 06/21/18 21:00 07/21/18 20:59 06/23/18 09:21 200 MG Furosemide (Lasix Tab) 20 mg QAM PO 06/22/18 09:00 07/22/18 08:59 06/23/18 08:17 20 MG Lisinopril (Zestril Tab) 20 mg BID PO 06/22/18 09:00 07/22/18 08:59 06/23/18 09:21 20 MG Ondansetron HCl (Zofran Odt) 4 mg Q6H PRN SL 06/21/18 22:45 07/21/18 22:44 Polyethylene (Miralax Powder Packet) 17 gm BID PO 06/22/18 09:00 07/22/18 08:59 06/23/18 08:16 17 GM Senna (Senokot Tab) 8.6 mg QAM PO 06/22/18 09:00 07/22/18 08:59 06/23/18 08:16 8.6 MG Amlodipine Besylate (Norvasc Tab) 10 mg QAM PO 06/22/18 09:00 07/22/18 08:59 06/23/18 08:18 10 MG Fentanyl (Duragesic Patch) 25 mcg Q72H TD 06/22/18 11:00 07/06/18 10:59 06/22/18 11:22 25 MCG Miscellaneous (Fentanyl Patch Remove & Waste) 1 ea Q3D N/A 06/22/18 10:59 07/22/18 10:58 06/22/18 11:22 1 EA Miscellaneous Information (Check Fentanyl Patch Placement) 1 ea QS N/A 06/22/18 16:00 07/22/18 15:59 06/23/18 08:20 1 EA Hydralazine HCl (HydrALAZINE INJ) 10 mg NOW IV. 06/22/18 14:30 07/22/18 14:29 Hydralazine HCl (HydrALAZINE INJ) 10 mg Q6 PRN IV. 06/22/18 14:30 07/22/18 14:29 Gabapentin (Neurontin Cap) 200 mg TID PO 06/22/18 21:00 07/22/18 20:59 06/23/18 13:41 200 MG Objective Vital Signs Date Time Temp Pulse Resp B/P (MAP) Pulse Ox O2 Delivery O2 Flow Rate FiO2 06/23/18 15:55 36.6 64 18 103/65 (78) 94 Room Air 06/23/18 07:42 Room Air 06/23/18 07:04 36.8 119 16 130/86 (101) 98 Nasal Cannula 2.0 06/23/18 00:00 Room Air 06/23/18 00:00 Room Air 06/23/18 00:00 36.6 79 18 149/93 (111) 98 Room Air Physical Exam General Appearance: WD/WN, no apparent distress Eyes: normal inspection, EOMI, sclerae normal ENT: normal ENT inspection, hearing grossly normal, pharynx normal Neck: supple, no adenopathy, no JVD, trachea midline Respiratory/Chest: chest non-tender, lungs clear, normal breath sounds, no respiratory distress, no accessory muscle use Cardiovascular: regular rate, rhythm, no edema, no gallop, no JVD, no murmur Abdomen: normal bowel sounds, non tender, soft, no organomegaly Extremities: normal range of motion, non-tender, normal inspection, no pedal edema, no calf tenderness, pelvis stable Neurologic/Psychiatric: time clock repairer II-XII nml as tested, alert, oriented x 3, + motor weakness, + depressed affect Skin: normal color, warm/dry, no rash Assessment and Plan 88 yo F w/ PMHx of AAA, a-fib, asthma on 1-2 O2 at night, carotid artery occlusion, GERD, HLD, HTN, [place], peripheral vascular disease, 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 Patient was hypertensive on arrival at 199/86. She was placed on 2 L oxygen maintaining saturation. Patient requires supplemental oxygen at home. CBC, BMP, PT/INR, UA unremarkable. Head CT was unremarkable. CXR showed Cardiomegaly without overt pulmonary edema with Small left pleural effusion, subsegmental bibasilar opacities suggesting atelectasis. Generalized Weakness - requires Wheelchair at baseline - neurological exam unremarkable, no focal deficits, Head CT negative - afebrile, normotensive, CBC, BMP, TSH UA unremarkable - probably deconditioning given baseline ambulatory dysfunction, medication induced, ESR slightly high, RAVI screen negative - PT /OT ordered: recommend rehab/placement - planning on [place] Accelerated HTN - SBP readings in the 180-190's on admission, never this high as outpatient - lisinopril 20mg BID - Norvasc 10mg PO added - pressure down to 103 systolic today, will back off on Norvasc to 5mg tomorrow AM CAD, AAA, Afib, H/o CVA - Continue Amiodarone, Eliquis - Continue Aspirin, Statin Chronic pain - continue Oxycodone IR Chronic constipation - miralax, senna, Colace DVT PPX on Eliquis Code status: FULL Disposition: to [place] once insurance authorizes
[2018-06-23 20:46] VITALS: BP 154/67; PULSE 71
[2018-06-23] MEDS: ATORVASTATIN 40 MG TAB PO SCH (20:48)
[2018-06-23 23:22] VITALS: BP 146/70; PULSE 68; TEMP 36.3; O2SAT 93
[2018-06-24 07:45] VITALS: BP 117/68; PULSE 58; TEMP 36.9; O2SAT 97
[2018-06-24] MEDS: DOCUSATE SODIUM 100 MG CAP PO SCH ×2 (08:20→20:33)
[2018-06-24] MEDS: AMLODIPINE BESYLATE 5 MG TAB PO SCH (08:21)
[2018-06-24] MEDS: CHOLECALCIFEROL 1000 INTER.UNIT TAB PO SCH (08:21)
[2018-06-24] MEDS: ASPIRIN 81 MG ECTAB PO SCH (08:21)
[2018-06-24] MEDS: APIXABAN 5 MG TAB PO SCH ×2 (08:21→20:31)
[2018-06-24] MEDS: GABAPENTIN 100 MG CAP PO SCH ×3 (08:22→20:34)
[2018-06-24] MEDS: AMIODARONE 200 MG TAB PO SCH (08:22)
[2018-06-24] MEDS: SENNA 8.6 MG TAB PO SCH (08:22)
[2018-06-24] MEDS: FUROSEMIDE 20 MG TAB PO SCH (08:22)
[2018-06-24] MEDS: CHECK FENTANYL PATCH PLACEMENT SCH ×3 (08:23→23:35)
[2018-06-24] MEDS: POLYETHYLENE (MIRALAX) 17 GM PACK PO SCH ×2 (08:24→20:37)
[2018-06-24] MEDS: LISINOPRIL 20 MG TAB PO SCH ×2 (10:30→20:39)
--- NOTE | 2018-06-24 11:18 | Progress Note ---
Subjective Date of Service: Jun 24, 2018. Subjective Pt evaluation today including: conversation w/ patient, physical exam, review of inpatient medication list Pain: no pain PO Intake: improved a lot Voiding: no voiding problems eating more, says her appetite is stable now slightly more energy, she is willing to participate with therapy blood pressure improved today compared to time of admission planning on [place], possibly tomorrow, patient and family agree with this plan Problem List Medical Problems: (1) Bilateral leg pain Status: Acute (2) Change in mental status Status: Acute (3) Confusion Status: Acute (4) CVA (cerebral vascular accident) Status: Acute (5) Dizziness Status: Acute (6) Elevated liver enzymes Status: Acute (7) Elevated troponin Status: Acute (8) Fluid overload Status: Acute (9) Generalized weakness Status: Acute (10) Headache Status: Acute (11) Hypertension Status: Acute (12) Nausea Status: Acute (13) Near syncope Status: Acute (14) Pedal edema Status: Acute (15) Physical deconditioning Status: Acute (16) Pneumonia Status: Acute (17) Pneumonia Status: Acute (18) Rapid atrial fibrillation Status: Acute (19) Right sided abdominal pain Status: Acute (20) Risk for falls Status: Acute (21) Visual hallucination Status: Acute (22) Weakness Status: Acute (23) Weakness generalized Status: Acute Review of Systems Constitutional: + weakness, + fatigue Neurologic: + weakness, + balance problems Psychiatric: + depression symptoms All Other Systems: Reviewed and Negative Medications Current Inpatient Medications Medications (Trade) Dose Ordered Sig/Yifan Route Start Time Stop Time Status Last Admin Dose Admin Acetaminophen (Tylenol Tab) 650 mg Q4H PRN PO 06/21/18 20:15 07/21/18 20:14 06/23/18 13:44 650 MG Al Hydrox/Mg Hydrox/Simethicone (Maalox Max Susp) 15 ml Q4H PRN PO 06/21/18 20:15 07/21/18 20:14 Magnesium Hydroxide (Milk Of Magnesia Susp) 30 ml Q6H PRN PO 06/21/18 20:15 07/21/18 20:14 Polyethylene (Miralax Powder Packet) 17 gm DAILY PRN PO 06/21/18 20:15 07/21/18 20:14 Ondansetron HCl (Zofran Inj) 4 mg Q6H PRN IV 06/21/18 20:15 07/21/18 20:14 Miscellaneous (Iv Fluids Completed) 1 ea PRN PRN N/A 06/21/18 21:00 06/21/19 20:59 Albuterol (Ventolin Hfa Inhaler) 2 puffs Q6H PRN INH 06/21/18 22:30 07/21/18 22:29 Amiodarone HCl (Cordarone Tab) 200 mg QAM PO 06/22/18 09:00 07/22/18 08:59 06/24/18 08:22 200 MG Apixaban (Eliquis) 5 mg BID PO 06/22/18 09:00 07/22/18 08:59 06/24/18 08:21 5 MG Aspirin (Ecotrin Tab) 81 mg QAM PO 06/22/18 09:00 07/22/18 08:59 06/24/18 08:21 81 MG Atorvastatin Calcium (Lipitor Tab) 40 mg HS PO 06/22/18 21:00 07/22/18 20:59 06/23/18 20:48 40 MG Cholecalciferol (Vitamin D Tab) 2,000 inter.unit QAM PO 06/22/18 09:00 07/22/18 08:59 06/24/18 08:21 2,000 INTER.UNIT Docusate Sodium (coLACE CAP) 200 mg BID PO 06/21/18 21:00 07/21/18 20:59 06/24/18 08:20 200 MG Furosemide (Lasix Tab) 20 mg QAM PO 06/22/18 09:00 07/22/18 08:59 06/24/18 08:22 20 MG Lisinopril (Zestril Tab) 20 mg BID PO 06/22/18 09:00 07/22/18 08:59 06/24/18 10:30 20 MG Ondansetron HCl (Zofran Odt) 4 mg Q6H PRN SL 06/21/18 22:45 07/21/18 22:44 Polyethylene (Miralax Powder Packet) 17 gm BID PO 06/22/18 09:00 07/22/18 08:59 06/24/18 08:24 17 GM Senna (Senokot Tab) 8.6 mg QAM PO 06/22/18 09:00 07/22/18 08:59 06/24/18 08:22 8.6 MG Fentanyl (Duragesic Patch) 25 mcg Q72H TD 06/22/18 11:00 07/06/18 10:59 06/22/18 11:22 25 MCG Miscellaneous (Fentanyl Patch Remove & Waste) 1 ea Q3D N/A 06/22/18 10:59 07/22/18 10:58 06/22/18 11:22 1 EA Miscellaneous Information (Check Fentanyl Patch Placement) 1 ea QS N/A 06/22/18 16:00 07/22/18 15:59 06/24/18 08:23 1 EA Hydralazine HCl (HydrALAZINE INJ) 10 mg NOW IV. 06/22/18 14:30 07/22/18 14:29 Hydralazine HCl (HydrALAZINE INJ) 10 mg Q6 PRN IV. 06/22/18 14:30 07/22/18 14:29 Gabapentin (Neurontin Cap) 200 mg TID PO 06/22/18 21:00 07/22/18 20:59 06/24/18 08:22 200 MG Amlodipine Besylate (Norvasc Tab) 5 mg QAM PO 06/24/18 09:00 07/22/18 08:59 06/24/18 08:21 5 MG Objective Vital Signs Date Time Temp Pulse Resp B/P (MAP) Pulse Ox O2 Delivery O2 Flow Rate FiO2 06/24/18 08:10 Room Air 06/24/18 07:45 36.9 58 18 117/68 (84) 97 Room Air 06/24/18 00:00 Nasal Cannula 2.0 06/23/18 23:22 36.3 68 16 146/70 (95) 93 Nasal Cannula 2.0 06/23/18 20:46 71 154/67 (96) 06/23/18 16:00 Room Air 06/23/18 15:55 36.6 64 18 103/65 (78) 94 Room Air Physical Exam General Appearance: WD/WN, no apparent distress Eyes: normal inspection, EOMI, sclerae normal ENT: normal ENT inspection, hearing grossly normal, pharynx normal Neck: supple, no adenopathy, no JVD, trachea midline Respiratory/Chest: chest non-tender, lungs clear, normal breath sounds, no respiratory distress, no accessory muscle use Cardiovascular: regular rate, rhythm, no edema, no gallop, no JVD, no murmur Abdomen: normal bowel sounds, non tender, soft, no organomegaly Extremities: normal range of motion, non-tender, normal inspection, no pedal edema, no calf tenderness, normal capillary refill, pelvis stable Neurologic/Psychiatric: logistics assistant II-XII nml as tested, alert, normal mood/affect, oriented x 3, + motor weakness (generalized) Skin: normal color, warm/dry, no rash Assessment and Plan 88 yo F w/ PMHx of AAA, a-fib, asthma on 1-2 O2 at night, carotid artery occlusion, GERD, HLD, HTN, [place], peripheral vascular disease, 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 Patient was hypertensive on arrival at 199/86. She was placed on 2 L oxygen maintaining saturation. Patient requires supplemental oxygen at home. CBC, BMP, PT/INR, UA unremarkable. Head CT was unremarkable. CXR showed Cardiomegaly without overt pulmonary edema with Small left pleural effusion, subsegmental bibasilar opacities suggesting atelectasis. Generalized Weakness - requires Wheelchair at baseline - neurological exam unremarkable, no focal deficits, Head CT negative - afebrile, normotensive, CBC, BMP, TSH UA unremarkable - ESR slightly high, RAVI screen negative - PT /OT ordered: recommend rehab/placement - planning on [place], could go as early as tomorrow if insurance authorizes - patient admits to feeling stronger, overall better today Accelerated HTN - SBP readings in the 180-190's on admission, never this high as outpatient - lisinopril 20mg BID - Norvasc 10mg PO added two days ago - pressure down to 103 systolic yesterday, Norvasc decreased to 5mg daily, watch today for blood pressure control, goal is 140 systolic CAD, AAA, Afib, H/o CVA - Continue Amiodarone, Eliquis - Continue Aspirin, Statin Chronic pain - continue Oxycodone IR Chronic constipation - miralax, senna, Colace DVT PPX on Eliquis Code status: FULL Disposition: to [place] once insurance authorizes, possibly as early as tomorrow
[2018-06-24 15:26] VITALS: BP 122/76; PULSE 93; TEMP 36.7; O2SAT 97
[2018-06-24] MEDS: ATORVASTATIN 40 MG TAB PO SCH (20:33)
[2018-06-24] MEDS: ACETAMINOPHEN 325 MG TAB PO PRN (20:43)
[2018-06-24 22:42] VITALS: BP 134/57; PULSE 59; TEMP 36.7; O2SAT 97
[2018-06-25 07:17] VITALS: BP 174/74; PULSE 72; TEMP 36.5; O2SAT 92
[2018-06-25] MEDS: CHECK FENTANYL PATCH PLACEMENT SCH ×2 (08:11→15:29)
[2018-06-25] MEDS: DOCUSATE SODIUM 100 MG CAP PO SCH ×2 (08:12→20:25)
[2018-06-25] MEDS: AMIODARONE 200 MG TAB PO SCH (08:13)
[2018-06-25] MEDS: ASPIRIN 81 MG ECTAB PO SCH (08:13)
[2018-06-25] MEDS: APIXABAN 5 MG TAB PO SCH ×2 (08:14→20:26)
[2018-06-25] MEDS: POLYETHYLENE (MIRALAX) 17 GM PACK PO SCH ×2 (08:14→20:25)
[2018-06-25] MEDS: FUROSEMIDE 20 MG TAB PO SCH (08:14)
[2018-06-25] MEDS: GABAPENTIN 100 MG CAP PO SCH ×3 (08:15→20:26)
[2018-06-25] MEDS: AMLODIPINE BESYLATE 5 MG TAB PO SCH (08:15)
[2018-06-25] MEDS: SENNA 8.6 MG TAB PO SCH (08:16)
[2018-06-25] MEDS: CHOLECALCIFEROL 1000 INTER.UNIT TAB PO SCH (08:16)
[2018-06-25] MEDS: LISINOPRIL 20 MG TAB PO SCH ×2 (08:16→20:26)
[2018-06-25 10:43] VITALS: BP 137/69
[2018-06-25] MEDS: FENTANYL PATCH REMOVE & WASTE SCH (11:06)
[2018-06-25] MEDS: FENTANYL 25 MCG/HR TDSY TD SCH (11:08)
[2018-06-25 15:05] VITALS: BP 176/74; PULSE 69; TEMP 36.3; O2SAT 95
[2018-06-25 16:17] VITALS: BP 157/68
[2018-06-25] MEDS: ATORVASTATIN 40 MG TAB PO SCH (20:26)
--- NOTE | 2018-06-25 22:10 | Progress Note ---
Subjective Date of Service: Jun 25, 2018. Subjective Pt evaluation today including: conversation w/ patient, physical exam, review of inpatient medication list Pain: no pain PO Intake: adequate Voiding: no voiding problems no new issues today, feeling stronger eating well discussed with case management, still awaiting insurance authorization for SNF Problem List Medical Problems: (1) Bilateral leg pain Status: Acute (2) Change in mental status Status: Acute (3) Confusion Status: Acute (4) CVA (cerebral vascular accident) Status: Acute (5) Dizziness Status: Acute (6) Elevated liver enzymes Status: Acute (7) Elevated troponin Status: Acute (8) Fluid overload Status: Acute (9) Generalized weakness Status: Acute (10) Headache Status: Acute (11) Hypertension Status: Acute (12) Nausea Status: Acute (13) Near syncope Status: Acute (14) Pedal edema Status: Acute (15) Physical deconditioning Status: Acute (16) Pneumonia Status: Acute (17) Pneumonia Status: Acute (18) Rapid atrial fibrillation Status: Acute (19) Right sided abdominal pain Status: Acute (20) Risk for falls Status: Acute (21) Visual hallucination Status: Acute (22) Weakness Status: Acute (23) Weakness generalized Status: Acute Review of Systems Constitutional: + weakness All Other Systems: Reviewed and Negative Medications Current Inpatient Medications Medications (Trade) Dose Ordered Sig/Yifan Route Start Time Stop Time Status Last Admin Dose Admin Acetaminophen (Tylenol Tab) 650 mg Q4H PRN PO 06/21/18 20:15 07/21/18 20:14 06/24/18 20:43 650 MG Al Hydrox/Mg Hydrox/Simethicone (Maalox Max Susp) 15 ml Q4H PRN PO 06/21/18 20:15 07/21/18 20:14 Magnesium Hydroxide (Milk Of Magnesia Susp) 30 ml Q6H PRN PO 06/21/18 20:15 07/21/18 20:14 Polyethylene (Miralax Powder Packet) 17 gm DAILY PRN PO 06/21/18 20:15 07/21/18 20:14 Ondansetron HCl (Zofran Inj) 4 mg Q6H PRN IV 06/21/18 20:15 07/21/18 20:14 Miscellaneous (Iv Fluids Completed) 1 ea PRN PRN N/A 7/25/18 21:00 06/21/19 20:59 Albuterol (Ventolin Hfa Inhaler) 2 puffs Q6H PRN INH 06/21/18 22:30 07/21/18 22:29 Amiodarone HCl (Cordarone Tab) 200 mg QAM PO 06/22/18 09:00 07/22/18 08:59 06/25/18 08:13 200 MG Apixaban (Eliquis) 5 mg BID PO 06/22/18 09:00 07/22/18 08:59 06/25/18 20:26 5 MG Aspirin (Ecotrin Tab) 81 mg QAM PO 06/22/18 09:00 07/22/18 08:59 06/25/18 08:13 81 MG Atorvastatin Calcium (Lipitor Tab) 40 mg HS PO 06/22/18 21:00 07/22/18 20:59 06/25/18 20:26 40 MG Cholecalciferol (Vitamin D Tab) 2,000 inter.unit QAM PO 06/22/18 09:00 07/22/18 08:59 06/25/18 08:16 2,000 INTER.UNIT Docusate Sodium (coLACE CAP) 200 mg BID PO 06/21/18 21:00 07/21/18 20:59 06/25/18 08:12 200 MG Furosemide (Lasix Tab) 20 mg QAM PO 06/22/18 09:00 07/22/18 08:59 06/25/18 08:14 20 MG Lisinopril (Zestril Tab) 20 mg BID PO 06/22/18 09:00 07/22/18 08:59 06/25/18 20:26 20 MG Ondansetron HCl (Zofran Odt) 4 mg Q6H PRN SL 06/21/18 22:45 07/21/18 22:44 Polyethylene (Miralax Powder Packet) 17 gm BID PO 06/22/18 09:00 07/22/18 08:59 06/25/18 08:14 17 GM Senna (Senokot Tab) 8.6 mg QAM PO 06/22/18 09:00 07/22/18 08:59 06/25/18 08:16 8.6 MG Fentanyl (Duragesic Patch) 25 mcg Q72H TD 06/22/18 11:00 07/06/18 10:59 06/25/18 11:08 25 MCG Miscellaneous (Fentanyl Patch Remove & Waste) 1 ea Q3D N/A 06/22/18 10:59 07/22/18 10:58 06/25/18 11:06 1 EA Miscellaneous Information (Check Fentanyl Patch Placement) 1 ea QS N/A 06/22/18 16:00 07/22/18 15:59 06/25/18 15:29 1 EA Hydralazine HCl (HydrALAZINE INJ) 10 mg NOW IV. 06/22/18 14:30 07/22/18 14:29 Hydralazine HCl (HydrALAZINE INJ) 10 mg Q6 PRN IV. 06/22/18 14:30 07/22/18 14:29 Gabapentin (Neurontin Cap) 200 mg TID PO 06/22/18 21:00 07/22/18 20:59 06/25/18 20:26 200 MG Amlodipine Besylate (Norvasc Tab) 5 mg QAM PO 06/24/18 09:00 07/22/18 08:59 06/25/18 08:15 5 MG Objective Vital Signs Date Time Temp Pulse Resp B/P (MAP) Pulse Ox O2 Delivery O2 Flow Rate FiO2 06/25/18 16:17 157/68 (97) 06/25/18 15:30 Room Air 06/25/18 15:05 36.3 69 19 176/74 (108) 95 Room Air 06/25/18 10:43 137/69 (91) 06/25/18 08:10 Room Air 06/25/18 07:17 36.5 72 18 174/74 (107) 92 Room Air 06/24/18 22:42 36.7 59 18 134/57 (82) 97 Nasal Cannula 2.0 Physical Exam General Appearance: WD/WN, no apparent distress Eyes: normal inspection, EOMI, sclerae normal ENT: normal ENT inspection, hearing grossly normal, pharynx normal Neck: supple, no adenopathy, no JVD, trachea midline Respiratory/Chest: chest non-tender, lungs clear, normal breath sounds, no respiratory distress, no accessory muscle use Cardiovascular: regular rate, rhythm, no edema, no gallop, no JVD, no murmur Abdomen: normal bowel sounds, non tender, soft, no organomegaly Extremities: normal range of motion, non-tender, normal inspection, no pedal edema, no calf tenderness Neurologic/Psychiatric: riveter hand II-XII nml as tested, alert, normal mood/affect, oriented x 3, + motor weakness Skin: normal color, warm/dry, no rash Assessment and Plan 88 yo F w/ PMHx of AAA, a-fib, asthma on 1-2 O2 at night, carotid artery occlusion, GERD, HLD, HTN, [place], peripheral vascular disease, 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 Patient was hypertensive on arrival at 199/86. She was placed on 2 L oxygen maintaining saturation. Patient requires supplemental oxygen at home. CBC, BMP, PT/INR, UA unremarkable. Head CT was unremarkable. CXR showed Cardiomegaly without overt pulmonary edema with Small left pleural effusion, subsegmental bibasilar opacities suggesting atelectasis. Generalized Weakness - requires Wheelchair at baseline - neurological exam unremarkable, no focal deficits, Head CT negative - afebrile, normotensive, CBC, BMP, TSH UA unremarkable - ESR slightly high, RAVI screen negative - PT /OT ordered: recommend rehab/placement - planning on [place], awaiting decision on insurance - patient admits to feeling stronger, overall better today Accelerated HTN - SBP readings in the 180-190's on admission, never this high as outpatient - lisinopril 20mg BID - Norvasc 10mg PO added two days ago, BP lower yesterday, decreased the Norvasc to 5mg - pressure acceptable on the above regimen, would make sure she is on Norvasc 5mg on discharge CAD, AAA, Afib, H/o CVA - Continue Amiodarone, Eliquis - Continue Aspirin, Statin Chronic pain - continue Oxycodone IR Chronic constipation - miralax, senna, Colace DVT PPX on Eliquis Code status: FULL Disposition: to [place] once insurance authorizes, possibly as early as tomorrow if patient is denied, there really would not be much utility in a peer to peer, no new medical needs, at baseline weakness if denied, she could go home with home health services, family good look into placement in SNF permanently as outpatient
[2018-06-25 23:10] VITALS: BP 133/53; PULSE 64; TEMP 36.6; O2SAT 96
[2018-06-26] MEDS: CHECK FENTANYL PATCH PLACEMENT SCH ×4 (00:08→23:29)
[2018-06-26 07:22] VITALS: BP 160/53; PULSE 66; TEMP 36.6; O2SAT 98
[2018-06-26] MEDS: APIXABAN 5 MG TAB PO SCH ×2 (07:47→20:48)
[2018-06-26] MEDS: AMIODARONE 200 MG TAB PO SCH (07:47)
[2018-06-26] MEDS: ASPIRIN 81 MG ECTAB PO SCH (07:47)
[2018-06-26] MEDS: DOCUSATE SODIUM 100 MG CAP PO SCH ×2 (07:47→20:47)
[2018-06-26] MEDS: AMLODIPINE BESYLATE 5 MG TAB PO SCH (07:48)
[2018-06-26] MEDS: FUROSEMIDE 20 MG TAB PO SCH (07:48)
[2018-06-26] MEDS: POLYETHYLENE (MIRALAX) 17 GM PACK PO SCH ×2 (07:48→20:49)
[2018-06-26] MEDS: GABAPENTIN 100 MG CAP PO SCH ×3 (07:48→20:49)
[2018-06-26] MEDS: SENNA 8.6 MG TAB PO SCH (07:49)
[2018-06-26] MEDS: LISINOPRIL 20 MG TAB PO SCH ×2 (07:49→20:50)
[2018-06-26] MEDS: CHOLECALCIFEROL 1000 INTER.UNIT TAB PO SCH (07:49)
[2018-06-26] MEDS: ACETAMINOPHEN 325 MG TAB PO PRN ×2 (09:22→15:34)
[2018-06-26 11:10] VITALS: BP 156/66; PULSE 64
[2018-06-26 14:59] VITALS: BP 123/73; PULSE 66; TEMP 36.7; O2SAT 96
--- NOTE | 2018-06-26 17:00 | Progress Note ---
Subjective Date of Service: Jun 26, 2018. Subjective Pt evaluation today including: conversation w/ patient, physical exam Patient does not show significant improvement toda. She has no complaints but continues to feel weak. She did not participate much in PT today and needed a 2 assist today.. Problem List Medical Problems: (1) Bilateral leg pain Status: Acute (2) Change in mental status Status: Acute (3) Confusion Status: Acute (4) CVA (cerebral vascular accident) Status: Acute (5) Dizziness Status: Acute (6) Elevated liver enzymes Status: Acute (7) Elevated troponin Status: Acute (8) Fluid overload Status: Acute (9) Generalized weakness Status: Acute (10) Headache Status: Acute (11) Hypertension Status: Acute (12) Nausea Status: Acute (13) Near syncope Status: Acute (14) Pedal edema Status: Acute (15) Physical deconditioning Status: Acute (16) Pneumonia Status: Acute (17) Pneumonia Status: Acute (18) Rapid atrial fibrillation Status: Acute (19) Right sided abdominal pain Status: Acute (20) Risk for falls Status: Acute (21) Visual hallucination Status: Acute (22) Weakness Status: Acute (23) Weakness generalized Status: Acute Review of Systems Constitutional: No chills Eyes: No eye pain ENT: No unusual epistaxis Cardiac: No chest pain Abdomen: No pain Musculoskeletal: No swelling Psychiatric: No depression symptoms Heme: No abnormal bleeding/bruising Endo: + fatigue Skin: No rash All Other Systems: Reviewed and Negative Objective Vital Signs Date Time Temp Pulse Resp B/P (MAP) Pulse Ox O2 Delivery O2 Flow Rate FiO2 06/26/18 14:59 36.7 66 20 123/73 (90) 96 06/26/18 11:10 64 156/66 (96) 06/26/18 08:00 Room Air 06/26/18 07:22 36.6 66 18 160/53 (88) 98 Nasal Cannula 1.0 06/25/18 23:25 Nasal Cannula 2.0 06/25/18 23:10 36.6 64 16 133/53 (79) 96 Nasal Cannula 2.0 Physical Exam Comments: General Appearance: WD/WN, no apparent distress Eyes: normal inspection, EOMI, sclerae normal ENT: normal ENT inspection, hearing grossly normal, pharynx normal Neck: supple, no adenopathy, no JVD, trachea midline Respiratory/Chest: chest non-tender, lungs clear, normal breath sounds, no respiratory distress, no accessory muscle use Cardiovascular: regular rate, rhythm, no edema, no gallop, no JVD, no murmur Abdomen: normal bowel sounds, non tender, soft, no organomegaly Extremities: normal range of motion, non-tender, normal inspection, no pedal edema, no calf tenderness 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 Patient was hypertensive on arrival at 199/86. She was placed on 2 L oxygen maintaining saturation. Patient requires supplemental oxygen at home. CBC, BMP, PT/INR, UA unremarkable. Head CT was unremarkable. CXR showed Cardiomegaly without overt pulmonary edema with Small left pleural effusion, subsegmental bibasilar opacities suggesting atelectasis. Generalized Weakness - requires Wheelchair at baseline - neurological exam unremarkable, no focal deficits, Head CT negative - afebrile, normotensive, CBC, BMP, TSH UA unremarkable - ESR slightly high, RAVI screen negative - PT /OT ordered: recommend rehab/placement - planning on [facility], awaiting decision on insurance - patient does not appear to be stronger today. Accelerated HTN - SBP readings in the 180-190's on admission, never this high as outpatient - lisinopril 20mg BID - Norvasc 10mg PO added two days ago, BP lower yesterday, decreased the Norvasc to 5mg - pressure acceptable on the above regimen, would make sure she is on Norvasc 5mg on discharge CAD, AAA, Afib, H/o CVA - Continue Amiodarone, Eliquis - Continue Aspirin, Statin Chronic pain - continue Oxycodone IR Chronic constipation - miralax, senna, Colace DVT PPX on Eliquis Code status: FULL Disposition: to [facility] once insurance authorizes, possibly as early as tomorrow if patient is denied, there really would not be much utility in a peer to peer, no new medical needs, at baseline weakness if denied, she could go home with home health services, family good look into placement in SNF permanently as outpatient Family however doing an appeal. I do agree with SNF placement.
[2018-06-26] MEDS ORDERED: LIDODERM (LIDOCAINE) PATCH 5% TD ONE (17:30)
[2018-06-26] MEDS: OXYCODONE HCL IR 5 MG TAB (IMMEDIATE RELEASE) PO PRN (18:42)
[2018-06-26] MEDS: ATORVASTATIN 40 MG TAB PO SCH (20:48)
[2018-06-26 23:28] VITALS: BP 158/71; PULSE 56; TEMP 36.5; O2SAT 99
[2018-06-27] MEDS: DOCUSATE SODIUM 100 MG CAP PO SCH ×2 (07:43→20:06)
[2018-06-27] MEDS: CHECK FENTANYL PATCH PLACEMENT SCH ×2 (07:44→15:40)
[2018-06-27] MEDS: AMIODARONE 200 MG TAB PO SCH (07:44)
[2018-06-27] MEDS: APIXABAN 5 MG TAB PO SCH ×2 (07:44→20:07)
[2018-06-27] MEDS: ASPIRIN 81 MG ECTAB PO SCH (07:44)
[2018-06-27] MEDS: FUROSEMIDE 20 MG TAB PO SCH (07:44)
[2018-06-27] MEDS: LISINOPRIL 20 MG TAB PO SCH ×2 (07:45→20:09)
[2018-06-27] MEDS: POLYETHYLENE (MIRALAX) 17 GM PACK PO SCH ×2 (07:45→20:08)
[2018-06-27] MEDS: GABAPENTIN 100 MG CAP PO SCH ×3 (07:45→20:08)
[2018-06-27] MEDS: AMLODIPINE BESYLATE 5 MG TAB PO SCH (07:45)
[2018-06-27] MEDS: CHOLECALCIFEROL 1000 INTER.UNIT TAB PO SCH (07:45)
[2018-06-27] MEDS: SENNA 8.6 MG TAB PO SCH (07:45)
[2018-06-27] MEDS: LIDODERM (LIDOCAINE) PATCH 5% TD SCH (07:47)
[2018-06-27 08:02] VITALS: BP 134/74; PULSE 65; TEMP 36.4; O2SAT 98
[2018-06-27] MEDS: OXYCODONE HCL IR 5 MG TAB (IMMEDIATE RELEASE) PO PRN ×2 (13:37→20:06)
[2018-06-27 14:56] VITALS: BP 127/69; PULSE 61; TEMP 36.8; O2SAT 96
--- NOTE | 2018-06-27 19:43 | DIAGNOSTIC IMAGING REPORT ---
PELVIS/BILATERAL HIP 2 VIEWS HISTORY: 88 years-old Female hip pain (bilateral) acute bilateral hip pain with remote fall COMPARISON: CT 04/07/2018 TECHNIQUE: AP view of the pelvis with 2 views of the bilateral hips FINDINGS: Osteoporotic appearance of the bones. Advanced degenerative changes about the lower lumbar spine with degenerative changes of the SI joints and pubic symphysis. Mild to moderate posterior arthritis of the bilateral femoral acetabular joints. No acute fracture or dislocation. Peripherally calcified aneurysm dilation of the infrarenal abdominal aorta redemonstrated with femoral arterial calcifications also noted. IMPRESSION: No acute fracture or dislocation. The above report was generated using voice recognition software. It may contain grammatical, syntax or spelling errors. Electronically signed by: Alvin Presley M.D. 06/27/2018 7:41 PM Dictated Date/Time: 06/27/2018 7:38 PM
[2018-06-27] MEDS: ATORVASTATIN 40 MG TAB PO SCH (20:08)
--- NOTE | 2018-06-27 23:00 | Progress Note ---
Subjective Date of Service: Jun 27, 2018. Subjective Pt evaluation today including: conversation w/ patient, physical exam Patient has no new complaints today. She continues to feel relatively weak. She states that she has pain in her bilateral hips, which is chronic. But she states her pain has been worsened as she is in bed. Problem List Medical Problems: (1) Bilateral leg pain Status: Acute (2) Change in mental status Status: Acute (3) Confusion Status: Acute (4) CVA (cerebral vascular accident) Status: Acute (5) Dizziness Status: Acute (6) Elevated liver enzymes Status: Acute (7) Elevated troponin Status: Acute (8) Fluid overload Status: Acute (9) Generalized weakness Status: Acute (10) Headache Status: Acute (11) Hypertension Status: Acute (12) Nausea Status: Acute (13) Near syncope Status: Acute (14) Pedal edema Status: Acute (15) Physical deconditioning Status: Acute (16) Pneumonia Status: Acute (17) Pneumonia Status: Acute (18) Rapid atrial fibrillation Status: Acute (19) Right sided abdominal pain Status: Acute (20) Risk for falls Status: Acute (21) Visual hallucination Status: Acute (22) Weakness Status: Acute (23) Weakness generalized Status: Acute Review of Systems Constitutional: No chills Eyes: No eye pain ENT: No unusual epistaxis Cardiac: No chest pain Abdomen: No pain Musculoskeletal: No swelling Psychiatric: No depression symptoms Heme: No abnormal bleeding/bruising Endo: + fatigue Skin: No rash All Other Systems: Reviewed and Negative Objective Vital Signs Date Time Temp Pulse Resp B/P (MAP) Pulse Ox O2 Delivery O2 Flow Rate FiO2 06/27/18 16:15 Room Air 06/27/18 14:56 36.8 61 18 127/69 (88) 96 Room Air 06/27/18 08:02 36.4 65 18 134/74 (94) 98 Room Air 06/27/18 08:00 Room Air 06/26/18 23:32 Nasal Cannula 2.0 06/26/18 23:28 36.5 56 18 158/71 (100) 99 Nasal Cannula 2.0 Physical Exam Comments: General Appearance: WD/WN, no apparent distress Eyes: normal inspection, EOMI, sclerae normal ENT: normal ENT inspection, hearing grossly normal, pharynx normal Neck: supple, no adenopathy, no JVD, trachea midline Respiratory/Chest: chest non-tender, lungs clear, normal breath sounds, no respiratory distress, no accessory muscle use Cardiovascular: regular rate, rhythm, no edema, no gallop, no JVD, no murmur Abdomen: normal bowel sounds, non tender, soft, no organomegaly Extremities: normal range of motion, non-tender, normal inspection, no pedal edema, no calf tenderness (pain however noted when pressing over bilateral trochanteric bursa, and hip joints) 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, alert, normal mood/affect, oriented x 3, + motor weakness Skin: normal color, warm/dry, no rash Laboratory Results Last 24 Hours Test 06/27/18 16:49 Urine Color YELLOW Urine Appearance TURBID Urine pH 7.5 Urine Specific [place] 1.018 Urine Protein 1+ Urine Glucose (UA) NEG Urine Ketones NEG Urine Occult Blood 2+ Urine Nitrite POS Urine Bilirubin NEG Urine Urobilinogen NEG Urine Leukocyte Esterase LARGE Urine WBC (Auto) >30 /hpf Urine RBC (Auto) 10-30 /hpf Urine Hyaline Casts (Auto) 1-5 /lpf Urine Epithelial Cells (Auto) 5-10 /lpf Urine Bacteria (Auto) 4+ Assessment and Plan 88 yo F w/ PMHx of AAA, a-fib, asthma on 1-2 O2 at night, carotid artery occlusion, GERD, HLD, HTN, [place], peripheral vascular disease, 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 Patient was hypertensive on arrival at 199/86. She was placed on 2 L oxygen maintaining saturation. Patient requires supplemental oxygen at home. CBC, BMP, PT/INR, UA unremarkable. Head CT was unremarkable. CXR showed Cardiomegaly without overt pulmonary edema with Small left pleural effusion, subsegmental bibasilar opacities suggesting atelectasis. Generalized Weakness - requires Wheelchair at baseline - neurological exam unremarkable, no focal deficits, Head CT negative - afebrile, normotensive, CBC, BMP, TSH UA unremarkable - ESR slightly high, RAVI screen negative - PT /OT ordered: recommend rehab/placement - planning on [facility], awaiting decision on insurance - patient does not appear to be stronger today. - Per PT notes from the : stand transfers with bed elevated for easier stance. moderate assistance X2 for pt safety. Patient also required assistance for personal hygiene as she was unable to wipe herself Accelerated HTN - SBP readings in the 180-190's on admission, never this high as outpatient -Currently in the 130s systolic. - lisinopril 20mg BID - Norvasc 10mg PO added two days ago, BP lower yesterday, decreased the Norvasc to 5mg - pressure acceptable on the above regimen, would make sure she is on Norvasc 5mg on discharge CAD, AAA, Afib, H/o CVA - Continue Amiodarone, Eliquis - Continue Aspirin, Statin Chronic pain/bilateral trochanteric bursisits/ likely chronic hip Osteoarthritis - continue Oxycodone IR -will obtain images of bilateral hips Chronic constipation - miralax, senna, Colace DVT PPX on Eliquis Code status: FULL Disposition: Family doing an appeal as patient was denied by insurance. I do agree with rehab/SNF placement.
[2018-06-27 23:11] VITALS: BP 132/72; PULSE 64; TEMP 36.6; O2SAT 97
[2018-06-28] MEDS: CHECK FENTANYL PATCH PLACEMENT SCH ×3 (00:07→15:38)
--- NOTE | 2018-06-28 03:01 | Progress Note ---
Progress Note Date of Service Jun 28, 2018. Progress Note was message with patients UA results which showed a likely UTI. Patient asymptomatic but with foul smelling urine. Started 250mg of ciprofloxacin PO as patient is likely to be discharged tomorrow. Will likely need 250mg q12 for 3 days, pending culture results
[2018-06-28] MEDS: CIPROFLOXACIN 250 MG TAB PO SCH ×2 (03:53→20:30)
[2018-06-28] MEDS: ASPIRIN 81 MG ECTAB PO SCH (07:29)
[2018-06-28] MEDS: AMIODARONE 200 MG TAB PO SCH (07:29)
[2018-06-28] MEDS: FUROSEMIDE 20 MG TAB PO SCH (07:29)
[2018-06-28] MEDS: APIXABAN 5 MG TAB PO SCH ×2 (07:29→20:30)
[2018-06-28] MEDS: DOCUSATE SODIUM 100 MG CAP PO SCH ×2 (07:29→20:31)
[2018-06-28] MEDS: POLYETHYLENE (MIRALAX) 17 GM PACK PO SCH ×2 (07:30→20:29)
[2018-06-28] MEDS: GABAPENTIN 100 MG CAP PO SCH ×3 (07:30→20:30)
[2018-06-28] MEDS: SENNA 8.6 MG TAB PO SCH (07:30)
[2018-06-28] MEDS: AMLODIPINE BESYLATE 5 MG TAB PO SCH (07:30)
[2018-06-28] MEDS: CHOLECALCIFEROL 1000 INTER.UNIT TAB PO SCH (07:30)
[2018-06-28] MEDS: LIDODERM (LIDOCAINE) PATCH 5% TD SCH (07:31)
[2018-06-28] MEDS: LISINOPRIL 20 MG TAB PO SCH ×2 (07:31→20:33)
[2018-06-28 07:33] VITALS: BP 137/71; PULSE 66; TEMP 36.4; O2SAT 100
[2018-06-28] MEDS: FENTANYL 25 MCG/HR TDSY TD SCH (11:19)
[2018-06-28] MEDS: FENTANYL PATCH REMOVE & WASTE SCH (11:22)
[2018-06-28] MEDS: OXYCODONE HCL IR 5 MG TAB (IMMEDIATE RELEASE) PO PRN (14:18)
[2018-06-28 15:21] VITALS: BP 160/73; PULSE 68; TEMP 36.8; O2SAT 97
[2018-06-28 20:28] VITALS: BP 103/64; PULSE 65; O2SAT 94
[2018-06-28] MEDS: ATORVASTATIN 40 MG TAB PO SCH (20:31)
--- NOTE | 2018-06-28 22:57 | Progress Note ---
Subjective Date of Service: Jun 28, 2018. Subjective Pt evaluation today including: conversation w/ patient, physical exam 88 yo female reports no new complaints today. She is awaiting placement. Problem List Medical Problems: (1) Bilateral leg pain Status: Acute (2) Change in mental status Status: Acute (3) Confusion Status: Acute (4) CVA (cerebral vascular accident) Status: Acute (5) Dizziness Status: Acute (6) Elevated liver enzymes Status: Acute (7) Elevated troponin Status: Acute (8) Fluid overload Status: Acute (9) Generalized weakness Status: Acute (10) Headache Status: Acute (11) Hypertension Status: Acute (12) Nausea Status: Acute (13) Near syncope Status: Acute (14) Pedal edema Status: Acute (15) Physical deconditioning Status: Acute (16) Pneumonia Status: Acute (17) Pneumonia Status: Acute (18) Rapid atrial fibrillation Status: Acute (19) Right sided abdominal pain Status: Acute (20) Risk for falls Status: Acute (21) Visual hallucination Status: Acute (22) Weakness Status: Acute (23) Weakness generalized Status: Acute Review of Systems Constitutional: No chills Eyes: No eye pain ENT: No unusual epistaxis Cardiac: No chest pain Abdomen: No pain Musculoskeletal: No swelling Psychiatric: No depression symptoms Heme: No abnormal bleeding/bruising Endo: + fatigue Skin: No rash All Other Systems: Reviewed and Negative Objective Vital Signs Date Time Temp Pulse Resp B/P (MAP) Pulse Ox O2 Delivery O2 Flow Rate FiO2 06/28/18 20:28 65 103/64 (77) 94 Room Air 06/28/18 20:00 Room Air 06/28/18 16:30 Room Air 06/28/18 15:21 36.8 68 17 160/73 (102) 97 Room Air 06/28/18 10:38 Room Air 06/28/18 10:37 Room Air 06/28/18 07:33 36.4 66 18 137/71 (93) 100 Nasal Cannula 1.5 06/28/18 00:10 Nasal Cannula 1.0 06/27/18 23:11 36.6 64 18 132/72 (92) 97 Nasal Cannula 1.0 Physical Exam Comments: General Appearance: WD/WN, no apparent distress Eyes: normal inspection, EOMI, sclerae normal ENT: normal ENT inspection, hearing grossly normal, pharynx normal Neck: supple, no adenopathy, no JVD, trachea midline Respiratory/Chest: chest non-tender, lungs clear, normal breath sounds, no respiratory distress, no accessory muscle use Cardiovascular: regular rate, rhythm, no edema, no gallop, no JVD, no murmur Abdomen: normal bowel sounds, non tender, soft, no organomegaly Extremities: normal range of motion, non-tender, normal inspection, no pedal edema, no calf tenderness (pain however noted when pressing over bilateral trochanteric bursa, and hip joints) 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 Patient was hypertensive on arrival at 199/86. She was placed on 2 L oxygen maintaining saturation. Patient requires supplemental oxygen at home. CBC, BMP, PT/INR, UA unremarkable. Head CT was unremarkable. CXR showed Cardiomegaly without overt pulmonary edema with Small left pleural effusion, subsegmental bibasilar opacities suggesting atelectasis. Generalized Weakness - requires Wheelchair at baseline - neurological exam unremarkable, no focal deficits, Head CT negative - afebrile, normotensive, CBC, BMP, TSH UA unremarkable - ESR slightly high, RAVI screen negative - PT /OT ordered: recommend rehab/placement - planning on [facility], awaiting decision on insurance - patient does not appear to be stronger today. - Per PT notes from the : stand transfers with bed elevated for easier stance. moderate assistance X2 for pt safety. Patient also required assistance for personal hygiene as she was unable to wipe herself Accelerated HTN - SBP readings in the 180-190's on admission, never this high as outpatient -Currently in the 130s systolic. - lisinopril 20mg BID - Norvasc 10mg PO added two days ago, BP lower yesterday, decreased the Norvasc to 5mg - pressure acceptable on the above regimen, would make sure she is on Norvasc 5mg on discharge CAD, AAA, Afib, H/o CVA - Continue Amiodarone, Eliquis - Continue Aspirin, Statin Chronic pain/bilateral trochanteric bursisits/ likely chronic hip Osteoarthritis - continue Oxycodone IR -will obtain images of bilateral hips Chronic constipation - miralax, senna, Colace UTI on 3 day course of Cipro DVT PPX on Eliquis Code status: FULL Disposition: Family doing an appeal as patient was denied by insurance. I do agree with rehab/SNF placement.
[2018-06-28 23:16] VITALS: BP 154/68; PULSE 69; TEMP 36.9; O2SAT 96
[2018-06-29] MEDS: CHECK FENTANYL PATCH PLACEMENT SCH ×3 (00:19→15:40)
[2018-06-29 07:01] VITALS: BP 144/74; PULSE 61; TEMP 36.5; O2SAT 100
[2018-06-29] MEDS: FUROSEMIDE 20 MG TAB PO SCH (08:52)
[2018-06-29] MEDS: ASPIRIN 81 MG ECTAB PO SCH (08:52)
[2018-06-29] MEDS: GABAPENTIN 100 MG CAP PO SCH ×3 (08:52→21:08)
[2018-06-29] MEDS: CIPROFLOXACIN 250 MG TAB PO SCH ×2 (08:53→21:08)
[2018-06-29] MEDS: LISINOPRIL 20 MG TAB PO SCH ×2 (08:53→21:10)
[2018-06-29] MEDS: DOCUSATE SODIUM 100 MG CAP PO SCH ×2 (08:53→21:09)
[2018-06-29] MEDS: SENNA 8.6 MG TAB PO SCH (08:53)
[2018-06-29] MEDS: AMLODIPINE BESYLATE 5 MG TAB PO SCH (08:53)
[2018-06-29] MEDS: CHOLECALCIFEROL 1000 INTER.UNIT TAB PO SCH (08:54)
[2018-06-29] MEDS: LIDODERM (LIDOCAINE) PATCH 5% TD SCH (08:55)
[2018-06-29] MEDS: POLYETHYLENE (MIRALAX) 17 GM PACK PO SCH ×2 (08:55→21:08)
[2018-06-29] MEDS: AMIODARONE 200 MG TAB PO SCH (08:56)
[2018-06-29] MEDS: APIXABAN 5 MG TAB PO SCH ×2 (08:56→21:07)
[2018-06-29] MEDS: OXYCODONE HCL IR 5 MG TAB (IMMEDIATE RELEASE) PO PRN (14:27)
[2018-06-29 15:06] VITALS: BP 130/79; PULSE 63; TEMP 36.7; O2SAT 96
[2018-06-29] MEDS: ATORVASTATIN 40 MG TAB PO SCH (21:09)
--- NOTE | 2018-06-29 22:38 | Progress Note ---
Subjective Date of Service: Jun 29, 2018. Subjective Pt evaluation today including: conversation w/ patient, physical exam 88 yo female with no new complaints today, Problem List Medical Problems: (1) Bilateral leg pain Status: Acute (2) Change in mental status Status: Acute (3) Confusion Status: Acute (4) CVA (cerebral vascular accident) Status: Acute (5) Dizziness Status: Acute (6) Elevated liver enzymes Status: Acute (7) Elevated troponin Status: Acute (8) Fluid overload Status: Acute (9) Generalized weakness Status: Acute (10) Headache Status: Acute (11) Hypertension Status: Acute (12) Nausea Status: Acute (13) Near syncope Status: Acute (14) Pedal edema Status: Acute (15) Physical deconditioning Status: Acute (16) Pneumonia Status: Acute (17) Pneumonia Status: Acute (18) Rapid atrial fibrillation Status: Acute (19) Right sided abdominal pain Status: Acute (20) Risk for falls Status: Acute (21) Visual hallucination Status: Acute (22) Weakness Status: Acute (23) Weakness generalized Status: Acute Review of Systems Constitutional: No chills Eyes: No eye pain ENT: No unusual epistaxis Cardiac: No chest pain Abdomen: No pain Musculoskeletal: No swelling Psychiatric: No depression symptoms Heme: No abnormal bleeding/bruising Endo: + fatigue Skin: No rash All Other Systems: Reviewed and Negative Objective Vital Signs Date Time Temp Pulse Resp B/P (MAP) Pulse Ox O2 Delivery O2 Flow Rate FiO2 06/29/18 16:00 Nasal Cannula 2.0 06/29/18 15:06 36.7 63 16 130/79 (96) 96 Room Air 06/29/18 08:00 Nasal Cannula 2.0 06/29/18 07:01 36.5 61 18 144/74 (97) 100 Nasal Cannula 2.0 06/28/18 23:16 36.9 69 16 154/68 (96) 96 Nasal Cannula 2.0 Physical Exam Comments: General Appearance: WD/WN, no apparent distress Eyes: normal inspection, EOMI, sclerae normal ENT: normal ENT inspection, hearing grossly normal, pharynx normal Neck: supple, no adenopathy, no JVD, trachea midline Respiratory/Chest: chest non-tender, lungs clear, normal breath sounds, no respiratory distress, no accessory muscle use Cardiovascular: regular rate, rhythm, no edema, no gallop, no JVD, no murmur Abdomen: normal bowel sounds, non tender, soft, no organomegaly Extremities: normal range of motion, non-tender, normal inspection, no pedal edema, no calf tenderness (pain however noted when pressing over bilateral trochanteric bursa, and hip joints) 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 Patient was hypertensive on arrival at 199/86. She was placed on 2 L oxygen maintaining saturation. Patient requires supplemental oxygen at home. CBC, BMP, PT/INR, UA unremarkable. Head CT was unremarkable. CXR showed Cardiomegaly without overt pulmonary edema with Small left pleural effusion, subsegmental bibasilar opacities suggesting atelectasis. Generalized Weakness - no change - requires Wheelchair at baseline - neurological exam unremarkable, no focal deficits, Head CT negative - afebrile, normotensive, CBC, BMP, TSH UA unremarkable - ESR slightly high, RAVI screen negative - PT /OT ordered: recommend rehab/placement - planning on [facility], awaiting decision on insurance - patient does not appear to be stronger today. - Per PT notes from the : stand transfers with bed elevated for easier stance. moderate assistance X2 for pt safety. Patient also required assistance for personal hygiene as she was unable to wipe herself Accelerated HTN - SBP readings in the 180-190's on admission, never this high as outpatient -Currently in the 130s systolic. - lisinopril 20mg BID - Norvasc 10mg PO added two days ago, BP lower yesterday, decreased the Norvasc to 5mg - pressure acceptable on the above regimen, would make sure she is on Norvasc 5mg on discharge CAD, AAA, Afib, H/o CVA - Continue Amiodarone, Eliquis - Continue Aspirin, Statin Chronic pain/bilateral trochanteric bursisits/ likely chronic hip Osteoarthritis - continue Oxycodone IR -will obtain images of bilateral hips Chronic constipation - miralax, senna, Colace UTI on 3 day course of Cipro. day 2/3 DVT PPX on Eliquis Code status: FULL Disposition: Family doing an appeal as patient was denied by insurance. I do agree with rehab/SNF placement.
[2018-06-29 23:53] VITALS: BP 165/72; PULSE 65; TEMP 36.3; O2SAT 98
[2018-06-30 08:00] VITALS: O2SAT 98
[2018-06-30] MEDS: SENNA 8.6 MG TAB PO SCH (08:09)
[2018-06-30] MEDS: GABAPENTIN 100 MG CAP PO SCH ×2 (08:09→14:03)
[2018-06-30] MEDS: APIXABAN 5 MG TAB PO SCH (08:09)
[2018-06-30] MEDS: CIPROFLOXACIN 250 MG TAB PO SCH (08:10)
[2018-06-30] MEDS: ASPIRIN 81 MG ECTAB PO SCH (08:10)
[2018-06-30] MEDS: CHOLECALCIFEROL 1000 INTER.UNIT TAB PO SCH (08:10)
[2018-06-30] MEDS: DOCUSATE SODIUM 100 MG CAP PO SCH (08:10)
[2018-06-30] MEDS: LISINOPRIL 20 MG TAB PO SCH (08:10)
[2018-06-30] MEDS: AMIODARONE 200 MG TAB PO SCH (08:11)
[2018-06-30] MEDS: CHECK FENTANYL PATCH PLACEMENT SCH ×2 (08:11)
[2018-06-30] MEDS: FUROSEMIDE 20 MG TAB PO SCH (08:11)
[2018-06-30] MEDS: POLYETHYLENE (MIRALAX) 17 GM PACK PO SCH (08:14)
[2018-06-30] MEDS: LIDODERM (LIDOCAINE) PATCH 5% TD SCH (08:14)
[2018-06-30 08:31] VITALS: BP 161/69; PULSE 68; TEMP 36.6; O2SAT 97
[2018-06-30] MEDS: AMLODIPINE BESYLATE 5 MG TAB PO SCH (09:37)
[2018-06-30] MEDS ORDERED: CIPR250T3 PO (13:19)
[2018-06-30] MEDS ORDERED: RXC5 PO (13:19)
[2018-06-30] MEDS ORDERED: NRN100 PO (13:19)
[2018-06-30] MEDS ORDERED: DRGTP25 TD (13:19)
[2018-06-30] MEDS ORDERED: LDDP5 TD (13:19)
[2018-06-30] MEDS ORDERED: NRV5 PO (13:19)
--- NOTE | 2018-06-30 13:20 | Discharge Instructions ---
Discharge Instructions Date of Service Jun 30, 2018. Admission Reason for Admission: Generalized Weakness Discharge Discharge Diagnosis / Problem: Generalized weakness Discharge Goals Goal(s): Decrease discomfort, Improve function Activity Recommendations Activity Limitations: as noted below Lifting Limitations: gradually increase as tolerated . Instructions / Follow-Up Instructions / Follow-Up Followup with PCP in 1-2 weeks Current Hospital Diet Patient's current hospital diet: AHA Diet (Heart Healthy) Discharge Diet Recommended Diet: AHA Diet (Heart Healthy) Pending Studies Studies pending at discharge: no Medical Emergencies . Who to Call and When: Medical Emergencies: If at any time you feel your situation is an emergency, please call 911 immediately. . Non-Emergent Contact Non-Emergency issues call your: Primary Care Provider Call Non-Emergent contact if: you have any medication questions . . "Provider Documentation" section prepared by Kunal Brown. .
--- NOTE | 2018-06-30 13:21 | Discharge Summary ---
Discharge Summary Date of Service Jun 30, 2018. Discharge Summary Admission Date: Jun 23, 2018 at 16:13 Discharge Date: Jun 30, 2018 Immunizations: Have You Had Influenza Vaccine: Unknown History of Tetanus Vaccine?: Unknown History of Pneumococcal: Unknown History of Hepatitis B Vaccine: Unknown Hospital Course 88 yo F w/ PMHx of AAA, a-fib, asthma on 1-2 O2 at night, carotid artery occlusion, GERD, HLD, HTN, [place], peripheral vascular disease, 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 Patient was hypertensive on arrival at 199/86. She was placed on 2 L oxygen maintaining saturation. Patient requires supplemental oxygen at home. CBC, BMP, PT/INR, UA unremarkable. Head CT was unremarkable. CXR showed Cardiomegaly without overt pulmonary edema with Small left pleural effusion, subsegmental bibasilar opacities suggesting atelectasis. Generalized Weakness - no change - requires Wheelchair at baseline - neurological exam unremarkable, no focal deficits, Head CT negative - afebrile, normotensive, CBC, BMP, TSH UA unremarkable - ESR slightly high, RAVI screen negative - PT /OT ordered: recommend rehab/placement - planning on [facility], awaiting decision on insurance - patient does not appear to be stronger today. - Per PT notes from the : stand transfers with bed elevated for easier stance. moderate assistance X2 for pt safety. Patient also required assistance for personal hygiene as she was unable to wipe herself Accelerated HTN - SBP readings in the 180-190's on admission, never this high as outpatient -Currently in the 130s systolic. - lisinopril 20mg BID - Norvasc 10mg PO added two days ago, BP lower yesterday, decreased the Norvasc to 5mg - pressure acceptable on the above regimen, would make sure she is on Norvasc 5mg on discharge CAD, AAA, Afib, H/o CVA - Continue Amiodarone, Eliquis - Continue Aspirin, Statin Chronic pain/bilateral trochanteric bursisits/ likely chronic hip Osteoarthritis - continue Oxycodone IR -will obtain images of bilateral hips Chronic constipation - miralax, senna, Colace UTI on 3 day course of Cipro. day 2/3 DVT PPX on Eliquis Code status: FULL Disposition: Family doing an appeal as patient was denied by insurance. I do agree with rehab/SNF placement. This includes examination of the patient, discharge planning, medication reconciliation, and communication with other providers. Discharge Instructions Please refer to the electronic Patient Visit Report (Discharge Instructions) for additional information.
[2018-06-30 13:47] VITALS: BP 161/69; PULSE 68; TEMP 36.6; O2SAT 97
== END 2018-06-30 14:31 | DRG 305 ==
LOC: EDBD 12:05 → C.EDB 12:06 → C.MS2W 20:28 → ENRESERV 20:42 → OBSVTOIN 06-23 16:13
PROVIDERS: ADMIT Hospitalist; ATTEND Internal Medicine Sports Medicine
DX: I10 Essential (primary) hypertension (principal); I71.4 Abdominal aortic aneurysm, without rupture; J45.909 Unspecified asthma, uncomplicated; K21.9 Gastro-esophageal reflux disease without esophagitis; E78.5 Hyperlipidemia, unspecified; I25.2 Old myocardial infarction; I48.91 Unspecified atrial fibrillation; K59.00 Constipation, unspecified; Z82.49 Family history of ischemic heart disease and other diseases of the circulatory system; Z88.8 Allergy status to other drugs, medicaments and biological substances; Z86.73 Personal history of transient ischemic attack (TIA), and cerebral infarction without residual deficits; M70.61 Trochanteric bursitis, right hip; M70.62 Trochanteric bursitis, left hip; M16.0 Bilateral primary osteoarthritis of hip; Z66 Do not resuscitate

== ENCOUNTER 2018-07-23 19:25 | Emergency (ER) | payer BC ==
[~2018-07-23] VITALS: Ht 154.9 cm; Wt 71.2 kg
[~2018-07-23 19:25] MED LIST changes: +CIPR250T3 PO; -DRGTP12 TOP; +DRGTP25 TD; -GABA-112 PO; -HYDR25TA4 PO; +LDDP5 TD; +NRN100 PO; +NRV5 PO; +RXC5 PO
[2018-07-23 19:33] VITALS: Ht 154.9 cm; Wt 71.2 kg
--- NOTE | 2018-07-23 20:00 | EMERGENCY ROOM VISIT NOTE ---
History Report prepared by Felisa: Lori Marrero Under the Supervision of: Dr. Ramesh Coffey M.D. First contact with patient: 19:42 Chief Complaint: ILLNESS Stated Complaint: AMS, CONFUSION, AGGITATED Nursing Triage Summary: daughter called ems for patient screaming and yelling and not acting self. per daughter patient was acting normal yesterday and earlier today untill she woke up from her nap. per ems daughter thought pt was having stroke and called ems. History of Present Illness The patient is an 88 year old female who presents to the Emergency Room with complaints of sudden illness starting prior to arrival. Per nursing staff, the patient's daughter called EMS as she was concerned her mother was having a stroke. They state that the patient was "out of control" and "freaking out." They state that EMS got an NIH score of 0. The patient states that she was sitting at home and her daughter asked her what was wrong, but she didn't know. The patient denies recent falls. She denies chest pain difficulty breathing headache blood in her stool blood in urine. She states she does not know why she is here and she does not want to be here. She states sometimes her daughter "freaks out". Source of History: patient Onset: prior to arrival Position: other (generalized) Quality: other (illness) Timing: other (sudden) Associated Symptoms: + back pain Note: The patient complains of hip pain. The patient denies recent falls. Review of Systems See HPI for pertinent positives and negatives. A total of ten systems were reviewed and were otherwise negative. 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 (20) PERIPH VASCULAR DIS NOS (21) Severe hypertension (22) Thoracic spinal stenosis Surgical Problems: (1) S/P laminectomy Family History Cancer (breast, uterine) Myocardial infarction Parkinson's disease Social History Smoking Status: Never Smoker Alcohol Use: none Drug Use: none Marital Status: single Housing Status: lives with family Occupation Status: retired Current/Historical Medications Scheduled Amiodarone Hcl (Cordarone), 200 MG PO QAM Apixaban (Eliquis), 5 MG PO BID Aspirin (Aspirin 81), 81 MG PO QAM Atorvastatin (Lipitor), 40 MG PO HS Cholecalciferol (Vitamin D), 2,000 INTER.UNIT PO QAM Docusate Sodium (Colace), 200 MG PO BID Fentanyl (Fentanyl), 25 MCG TD Q72H Gabapentin (Gabapentin), 200 MG PO TID Polyethylene Glycol 3350 (Miralax), 17 GM PO BID Sennosides (Senna-Tabs), 8.6 MG PO QAM Scheduled PRN Albuterol (Ventolin Hfa), 2 PUFFS INH Q6H PRN for Shortness of Breath Oxycodone HCl (Oxycodone HCl), 5 MG PO Q4H PRN for Pain Allergies Coded Allergies: Alendronate (Unverified Allergy, Intermediate, ., 07/23/18) Atenolol (Unverified Allergy, Intermediate, ., 07/23/18) Naproxen (Unverified Allergy, Intermediate, ., 07/23/18) Adenosine (Verified Allergy, Unknown, "pt not sure had it in er years ago ", 06/21/18) Pregabalin (Unverified Adverse Reaction, Intermediate, depression, 07/23/18 ) Physical Exam Vital Signs Date Time Temp Pulse Resp B/P (MAP) Pulse Ox O2 Delivery O2 Flow Rate FiO2 07/23/18 23:32 69 18 144/60 92 Room Air 07/23/18 21:57 67 07/23/18 21:48 90 18 185/90 99 Room Air 07/23/18 21:05 70 18 147/94 99 Room Air 07/23/18 19:33 36.8 66 18 140/64 99 Room Air Physical Exam Physical Exam GENERAL: She is oriented to person, place, and time. She appears well- developed and well-nourished. She does not appear distressed. HENT: Exam performed. Head: Normocephalic and atraumatic. Right Ear: External ear normal. No mastoid tenderness. Left Ear: External ear normal. No mastoid tenderness. Mouth/Throat: The oropharynx is clear and moist. No trismus in the jaw. No dental abscesses or uvula swelling. No oropharyngeal exudate or tonsillar abscesses. EYES: Conjunctivae and EOM are normal. Pupils are equal, round, and reactive to light. Right eye exhibits no discharge. Left eye exhibits no discharge. No scleral icterus. NECK: Normal range of motion. Neck supple. No JVD present. No spinous process tenderness present. No carotid bruit present. No rigidity. No tracheal deviation and normal range of motion present. No Brudzinski's sign and no Kernig 's sign noted. CV: Normal rate, irregular rhythm, normal heart sounds and intact distal pulses. There is no peripheral edema. Palpable radial pulses bue. PULM/CHEST: Effort normal and breath sounds normal. No respiratory distress. No stridor. She has no wheezes. She has no rales. Chest Wall: She exhibits no tenderness. ABD: The abdomen is soft. Bowel sounds are normal. She has no distension. No mass is present. There is no tenderness. There is no rebound, no guarding, no Valadez's sign and no tenderness at McBurney's point. Rovsig negative MUSC/SKEL: Normal range of motion. There is no peripheral edema, tenderness or deformity. LYMPH: No cervical adenopathy. NEURO: She is alert and oriented to person, place, and time. No cranial nerve deficit or sensory deficit. Coordination normal. GCS eye subscore is 4. GCS verbal subscore is 5. GCS motor subscore is 6. Cerebellar tests wnl. SKIN: Skin is warm and dry. She is not diaphoretic. PSYCH: She has a normal mood and affect. Behavior is normal. Judgment and thought content normal. Medical Decision & Procedures ER Provider Diagnostic Interpretation: Radiology results as stated below per my review and radiologist interpretation: HEAD WITHOUT CONTRAST (CT) CLINICAL HISTORY: 88 years-old Female with ams. Acutely altered mental status with confusion TECHNIQUE: Multiple axial CT images of the head were obtained without contrast. A dose lowering technique was utilized adhering to the principles of ALARA. CT DOSE: 612.73 mGy.cm COMPARISON: CT head 06/21/2018. FINDINGS: No acute intracranial hemorrhage, midline shift, intracranial mass, hydrocephalus, territorial ischemia or abnormal extra-axial collection. Age-related involutional changes. Low-attenuation about the periventricular white matter suggests chronic microvascular ischemic changes. Senescent calcifications of the basal ganglia. Cerebral vascular calcifications are noted. The calvarium is intact. Note is made of a metopic suture. Mastoid air cells are clear. Mild mucosal thickening of the ethmoid air cells. Soft tissues and orbits are unremarkable. IMPRESSION: No acute intracranial abnormality. The above report was generated using voice recognition software. It may contain grammatical, syntax or spelling errors. Electronically signed by: Alvin Presley M.D. 07/23/2018 9:23 PM Dictated Date/Time: 07/23/2018 9:20 PM CHEST 2 VIEWS ROUTINE HISTORY: 88 years-old Female ams acutely altered mental status COMPARISON: Chest radiograph 06/21/2018 TECHNIQUE: AP and lateral views of the chest FINDINGS: Cardiac silhouette is mildly enlarged. Calcification of the aorta. Unchanged right subclavian pacer. Coronary arterial stent graft projects over the left heart border. Trace left pleural effusion with subsegmental left basilar opacities, improved from prior. No pneumothorax or overt pulmonary edema. The right lung appears generally clear. Degenerative changes of the shoulders and spine. IVC filter noted. IMPRESSION: 1. Trace left pleural effusion with subsegmental left basilar opacities. 2. Cardiomegaly without overt pulmonary edema. The above report was generated using voice recognition software. It may contain grammatical, syntax or spelling errors. Electronically signed by: Alvin Presley M.D. 07/23/2018 9:45 PM Dictated Date/Time: 07/23/2018 9:43 PM Laboratory Results 07/23/18 20:00 Red Blood Count 4.05, Mean Corpuscular Volume 91.6, Mean Corpuscular Hemoglobin 27.7, Mean Corpuscular Hemoglobin Concent 30.2, Mean Platelet Volume 9.8, Neutrophils (%) (Auto) 51.3, Lymphocytes (%) (Auto) 32.0, Monocytes (%) (Auto) 9.3, Eosinophils (%) (Auto) 6.6, Basophils (%) (Auto) 0.6, Neutrophils # (Auto) 2.58, Lymphocytes # (Auto) 1.61, Monocytes # (Auto) 0.47, Eosinophils # (Auto) 0.33, Basophils # (Auto) 0.03 07/23/18 20:00 07/23/18 20:25 Test 07/23/18 20:00 07/23/18 20:25 07/23/18 20:47 07/23/18 20:49 White Blood Count 5.03 K/uL (4.8-10.8) Red Blood Count 4.05 M/uL (4.2-5.4) Hemoglobin 11.2 g/dL (12.0-16.0) Hematocrit 37.1 % (37-47) Mean Corpuscular Volume 91.6 fL (80-100) Mean Corpuscular Hemoglobin 27.7 pg (25-34) Mean Corpuscular Hemoglobin Concent 30.2 g/dl (32-36) Platelet Count 259 K/uL (130-400) Mean Platelet Volume 9.8 fL (7.4-10.4) Neutrophils (%) (Auto) 51.3 % Lymphocytes (%) (Auto) 32.0 % Monocytes (%) (Auto) 9.3 % Eosinophils (%) (Auto) 6.6 % Basophils (%) (Auto) 0.6 % Neutrophils # (Auto) 2.58 K/uL (1.4-6.5) Lymphocytes # (Auto) 1.61 K/uL (1.2-3.4) Monocytes # (Auto) 0.47 K/uL (0.11-0.59) Eosinophils # (Auto) 0.33 K/uL (0-0.5) Basophils # (Auto) 0.03 K/uL (0-0.2) RDW Standard Deviation 58.1 fL (36.4-46.3) RDW Coefficient of Variation 17.3 % (11.5-14.5) Immature Granulocyte % (Auto) 0.2 % Immature Granulocyte # (Auto) 0.01 K/uL (0.00-0.02) Anion Gap 8.0 mmol/L (3-11) Est Creatinine Clear Calc Drug Dose 48.6 ml/min Estimated GFR () 83.7 Estimated GFR (Non- 72.2 BUN/Creatinine Ratio 23.2 (10-20) Calcium Level 8.6 mg/dl (8.5-10.1) Total Bilirubin 0.3 mg/dl (0.2-1) Alanine Aminotransferase (ALT/SGPT) 17 U/L (12-78) Alkaline Phosphatase 73 U/L (45-117) Troponin I < 0.015 ng/ml (0-0.045) Total Protein 7.1 gm/dl (6.4-8.2) Albumin 3.1 gm/dl (3.4-5.0) Lipase 94 U/L (73-393) Lactic Acid Level 2.1 mmol/L (0.4-2.0) Direct Bilirubin 0.1 mg/dl (0-0.2) Aspartate Amino Transf (AST/SGOT) 18 U/L (15-37) Urine Color YELLOW Urine Appearance CLEAR (CLEAR) Urine pH 7.5 (4.5-7.5) Urine Specific [place] 1.020 (1.000-1.030) Urine Protein NEG (NEG) Urine Glucose (UA) NEG (NEG) Urine Ketones NEG (NEG) Urine Occult Blood NEG (NEG) Urine Nitrite NEG (NEG) Urine Bilirubin NEG (NEG) Urine Urobilinogen NEG (NEG) Urine Leukocyte Esterase TRACE (NEG) Urine WBC (Auto) 1-5 /hpf (0-5) Urine RBC (Auto) 0-4 /hpf (0-4) Urine Hyaline Casts (Auto) 1-5 /lpf (0-5) Urine Epithelial Cells (Auto) 20-30 /lpf (0-5) Urine Bacteria (Auto) NEG (NEG) Bedside Glucose 96 mg/dl (70-90) Venous Blood pH 7.45 (7.36-7.41) Venous Blood Partial Pressure CO2 47 mmHg (38.0-50.0) Venous Blood Partial Pressure O2 34 mmHg Venous Blood HCO3 32 mmol/L Venous Blood Oxygen Saturation 66.5 % Venous Blood Base Excess 6.8 mEq/L Salicylates Level < 1.7 mg/dl (2.8-20) Acetaminophen Level < 2 ug/ml (10-30) Test 07/23/18 21:43 Prothrombin Time 10.8 SECONDS (9.0-12.0) Prothromb Time International Ratio 1.0 (0.9-1.1) Activated Partial Thromboplast Time 25.9 SECONDS (21.0-31.0) Partial Thromboplastin Ratio 1.0 Ammonia < 10.0 umol/L (11-32) Laboratory results reviewed by me ECG Per My Interpretation Indication: altered mental status Rate (beats per minute): 65 Rhythm: sinus rhythm Findings: other (AZ, QRS, and QT-c intervals are within normal limits, no ST elevations or depressions) ED Course 1944: The patient was evaluated in room C5. A complete history and physical exam was performed. 2022: I reevaluated the patient and spoke to her daughter at this time who is at the bedside. She states that she has taken care of her for 5 years, but tonight she could not even get up. She states that her mother doesn't normally walk, but can pivot to use the restroom when needed. She reports that today she was just loose and couldn't even stand to do that. The patient notes that she doesn't smoke or drink. The patient's daughter was visibly intoxicated and has a cup full of beer that she is drinking in the room. Patient's daughter was asked to week outside in the waiting room as she is intoxicated and causing a disturbance to other patients in the module. 2311: I reevaluated the patient and her vital signs are stable. Her labs and imaging are within normal limits. The patient reports no acute distress and she is neurologically intact. The patient's daughter is no where to be found in the waiting room so we are presuming she left. I will contact the case worked to arrange transportation back home given her daughter appeared visually intoxicated when she came to see her mother. DISCHARGE - Plan of care discussed with patient and questions answered. The patient was given both verbal and printed discharge instructions. The patient verbalized understanding and ability to comply. The patient is to seek outpatient follow up as noted in the discharge instructions. The patient verbalized understanding and ability to comply. The patient is discharged in stable condition. The patient was instructed to return for worsening symptoms. Medical Decision 1944: The patient was evaluated in room C5. A complete history and physical exam was performed. 2022: I reevaluated the patient and spoke to her daughter at this time who is at the bedside. She states that she has taken care of her for 5 years, but tonight she could not even get up. She states that her mother doesn't normally walk, but can pivot to use the restroom when needed. She reports that today she was just loose and couldn't even stand to do that. The patient notes that she doesn't smoke or drink. The patient's daughter was visibly intoxicated and has a cup full of beer that she is drinking in the room. Patient's daughter was asked to week outside in the waiting room as she is intoxicated and causing a disturbance to other patients in the module. 2312: I reevaluated the patient and her vital signs are stable. Her labs and imaging are within normal limits. The patient reports no acute distress and she is neurologically intact. The patient's daughter is no where to be found in the waiting room so we are presuming she left. I will contact the case worked to arrange transportation back home given her daughter appeared visually intoxicated when she came to see her mother. DISCHARGE - Plan of care discussed with patient and questions answered. The patient was given both verbal and printed discharge instructions. The patient verbalized understanding and ability to comply. The patient is to seek outpatient follow up as noted in the discharge instructions. The patient verbalized understanding and ability to comply. The patient is discharged in stable condition. The patient was instructed to return for worsening symptoms. Medication Reconcilliation Current Medication List: was personally reviewed by me Blood Pressure Screening Patient's blood pressure: Elevated blood pressure Blood pressure disposition: Referred to PCP Impression Primary Impression: Altered mental status Scribe Attestation The scribe's documentation has been prepared under my direction and personally reviewed by me in its entirety. I confirm that the note above accurately reflects all work, treatment, procedures, and medical decision making performed by me. The chart was completed utilizing [email or web address] Speech voice recognition software. Grammatical errors, random word insertions, pronoun errors, and incomplete sentences are an occasional consequence of this system due to software limitations, ambient noise, and hardware issues. Any formal questions or concerns about the content, text, or information contained within the body of this dictation should be directly addressed to the physician for clarification. Departure Information Dispostion Home / Self-Care Referrals Alexei Redman M.D. (PCP) Forms HOME CARE DOCUMENTATION FORM, IMPORTANT VISIT INFORMATION, WORK / SCHOOL INSTRUCTIONS Patient Instructions My [facility] Additional Instructions Return to the emergency department if you develop fever greater 100.4, chest pain, difficulty breathing, blood in stools, blood in urine, dark tarry stools, seizure, numbness, difficulty speaking, lose consciousness, or symptoms reappear. Problem Qualifiers Primary Impression: Altered mental status Coma depth: Tal coma 13-15 Coma timing: in the field (EMT or ambulance)
[2018-07-23 20:11] LABS: BASO % 0.6 %; BASO ABS # 0.03 K/uL (0-0.2); EOS % 6.6 %; EOS ABS # 0.33 K/uL (0-0.5); HEMATOCRIT 37.1 % (37-47); HEMOGLOBIN 11.2 g/dL (12.0-16.0); IG# 0.01 K/uL (0.00-0.02); LYMPH ABS # 1.61 K/uL (1.2-3.4); MEAN CELL VOLUME 91.6 fL (80-100); MEAN CORPUSCULAR HEMOGLOBIN 27.7 pg (25-34); MEAN CORPUSCULAR HGB CONC 30.2 g/dl (32-36); MEAN PLATELET VOLUME 9.8 fL (7.4-10.4); MONO % 9.3 %; MONO ABS # 0.47 K/uL (0.11-0.59); NEUT % 51.3 %; NEUT ABS # 2.58 K/uL (1.4-6.5); PLATELET COUNT 259 K/uL (130-400); RED CELL DISTRIBUTION WIDTH CV 17.3 % (11.5-14.5); RED CELL DISTRIBUTION WIDTH SD 58.1 fL (36.4-46.3); WHITE BLOOD COUNT 5.03 K/uL (4.8-10.8)
[2018-07-23 21:00] LABS: ALBUMIN 3.1 gm/dl (3.4-5.0); ALKALINE PHOSPHATASE 73 U/L (45-117); ALT/SGPT 17 U/L (12-78); BLOOD UREA NITROGEN 17 mg/dl (7-18); CALCIUM 8.6 mg/dl (8.5-10.1); CARBON DIOXIDE 29 mmol/L (21-32); CREATININE 0.75 mg/dl (0.60-1.20); GLUCOSE 80 mg/dl (70-99); LIPASE 94 U/L (73-393); SODIUM 141 mmol/L (136-145); TOTAL PROTEIN 7.1 gm/dl (6.4-8.2)
--- NOTE | 2018-07-23 21:24 | DIAGNOSTIC IMAGING REPORT ---
HEAD WITHOUT CONTRAST (CT) CLINICAL HISTORY: 88 years-old Female with ams. Acutely altered mental status with confusion TECHNIQUE: Multiple axial CT images of the head were obtained without contrast. A dose lowering technique was utilized adhering to the principles of ALARA. CT DOSE: 612.73 mGy.cm COMPARISON: CT head 06/21/2018. FINDINGS: No acute intracranial hemorrhage, midline shift, intracranial mass, hydrocephalus, territorial ischemia or abnormal extra-axial collection. Age-related involutional changes. Low-attenuation about the periventricular white matter suggests chronic microvascular ischemic changes. Senescent calcifications of the basal ganglia. Cerebral vascular calcifications are noted. The calvarium is intact. Note is made of a metopic suture. Mastoid air cells are clear. Mild mucosal thickening of the ethmoid air cells. Soft tissues and orbits are unremarkable. IMPRESSION: No acute intracranial abnormality. The above report was generated using voice recognition software. It may contain grammatical, syntax or spelling errors. Electronically signed by: Alvin Presley M.D. 07/23/2018 9:23 PM Dictated Date/Time: 07/23/2018 9:20 PM
--- NOTE | 2018-07-23 21:47 | DIAGNOSTIC IMAGING REPORT ---
CHEST 2 VIEWS ROUTINE HISTORY: 88 years-old Female ams acutely altered mental status COMPARISON: Chest radiograph 06/21/2018 TECHNIQUE: AP and lateral views of the chest FINDINGS: Cardiac silhouette is mildly enlarged. Calcification of the aorta. Unchanged right subclavian pacer. Coronary arterial stent graft projects over the left heart border. Trace left pleural effusion with subsegmental left basilar opacities, improved from prior. No pneumothorax or overt pulmonary edema. The right lung appears generally clear. Degenerative changes of the shoulders and spine. IVC filter noted. IMPRESSION: 1. Trace left pleural effusion with subsegmental left basilar opacities. 2. Cardiomegaly without overt pulmonary edema. The above report was generated using voice recognition software. It may contain grammatical, syntax or spelling errors. Electronically signed by: Alvin Presley M.D. 07/23/2018 9:45 PM Dictated Date/Time: 07/23/2018 9:43 PM
[2018-07-23 21:48] LABS: POTASSIUM 4.3 mmol/L (3.5-5.1)
[2018-07-23 22:01] LABS: PTT PATIENT 25.9 SECONDS (21.0-31.0)
[2018-07-24 01:10] VITALS: BP 117/46; PULSE 66; O2SAT 94
== END 2018-07-24 01:10 | disposition home or self-care (01) ==
LOC: EDBD 19:25 → C.EDC 19:26
DX: R41.82 Altered mental status, unspecified (principal); I10 Essential (primary) hypertension; I48.91 Unspecified atrial fibrillation; Z79.01 Long term (current) use of anticoagulants; Z79.82 Long term (current) use of aspirin; E78.5 Hyperlipidemia, unspecified; M25.561 Pain in right knee; M25.562 Pain in left knee; M25.551 Pain in right hip; M25.552 Pain in left hip; G89.29 Other chronic pain; Z86.79 Personal history of other diseases of the circulatory system; Z88.8 Allergy status to other drugs, medicaments and biological substances